=== PATIENT | female | born 1990 | race Caucasian/White ===

== ENCOUNTER → 2020-08-03 13:59 | Outpatient (CLI) | payer OTHER, SELFPAY | PROVIDERS: Referring Provider Advanced Practice Midwife; Visit Provider Advanced Practice Midwife | DX: Z34.90 Encounter for supervision of normal pregnancy, unspecified, unspecified trimester (principal); Z3A.00 Weeks of gestation of pregnancy not specified; Z84.81 Family history of carrier of genetic disease | CPT/HCPCS: 36415 ==

== ENCOUNTER 2020-12-27 15:27 | Inpatient (IN) | payer OTHER, SELFPAY ==
[2020-12-27] VITALS (39 sets, daily range): BP systolic 99–168; BP diastolic 56–105; PULSE 54–112; TEMP 36.6–37.1; O2SAT 93–100; BMI 25.9
[2020-12-27 15:23] LABS: ROM Internal Control Test YES-OK TO RESULT pt. (Internal QC)
[2020-12-27 15:25] LABS: ROM Patient Test POSITIVE (Negative)
[2020-12-27] MEDS: Lactated Ringers 1,000 ML 999 ML IV (15:45)
[2020-12-27 15:57] LABS: Absolute Lymphocyte Count 1.74 X10^3/uL (0.83-4.51); Absolute Neutrophil Count 8.5 X10^3/uL (2.0-7.7); Basophil# 0.04 X10^3/uL; Basophil% 0.4 % (0-1); Eosinophil# 0.08 X10^3/uL; Eosinophils% 0.7 % (0-5); Hematocrit 35.2 % (37-47); Hemoglobin 12.2 g/dL (12.0-15.0); Lymphocyte # 1.74 X10^3/ul (0.83-4.51); Lymphocyte % 15.9 % (19-41); Mean Corp Hgb Conc 34.7 g/dL (32-36); Mean Corpuscular Hgb 30.7 pg (27.0-32.0); Mean Corpuscular Volume 88.7 fL (81-99); Mean Platelet Vol. 11.2 fl (6.2-12.0); Monocyte# 0.58 X10^3/uL; Monocyte% 5.3 % (0-10); NRBC Flagged by Analyzer 0 % (0-5); Neutrophil # 8.47 X10^3/uL (2.7-7.7); Neutrophil % 77.2 % (47-70); Platelet Count 260 K/mm3 (150-450); RBC Distribution Width SD 41.9 fl (35.1-43.9); Red Blood Count 3.97 M/mm3 (4.2-5.4)
[2020-12-27] MEDS: Lactated Ringers 500 ML 999 ML IV (16:00)
[2020-12-27] MEDS: Ondansetron 4 MG/2 ML Vial IV (16:17)
[2020-12-27] MEDS: fentaNYL-bupivacaine (epidural) 100 ML BAG EPIDURAL (16:25)
--- NOTE | 2020-12-27 16:38 | PCM.HP.OB ---
HPI - General General Date of Admission: 12/27/20 HPI Narrative VALE VARGAS, is a 30 F at 37w4d presents with SROM clear fluid at 1245 this afternoon. Shortly after SROM, contractions began and became more painful. complicated by labor at 34 weeks, betamethasone x2.. Anxiety and depression, COVID 19 during first trimester, history of genital HSV on suppression therapy. Maternal Data Information Final NIKKI: 01/13/21 Final NIKKI Source: US <20 weeks Gestational age: 37w4d PFSH PFSH Home Medications 12/27/20 [History Last Taken 12/27/20] famotidine [Pepcid] 12/27/20 [History Last Taken 12/26/20] sertraline [Zoloft] mg 12/27/20 [History Last Taken 12/27/20] Allergy/AdvReac Type Severity Reaction Status Date / Time tree nut Allergy Hives Verified 12/27/20 15:06 NST FHR Rate Baby A Baseline: 125 Variability:: Moderate Accelerations:: 15 x 15 Decelerations:: None FHR Category:: Category I Uterine Activity:: every 3 minutes, strong ROS Constitutional Constitutional: Reports systems reviewed and no addt'l complaints, except as documented; Denies headache(s) Eyes Eyes: Denies acute decrease in peripheral vision, blurry vision or change in vision ENT HEENT: Reports systems reviewed and no addt'l complaints, except as documented Cardiovascular Cardiovascular: Denies chest pain or dizziness Respiratory/Chest Respiratory/Chest: Denies cough, dyspnea, dyspnea on exertion, shortness of breath at rest or shortness of breath with exertion Gastrointestinal Gastrointestinal: Denies abdominal pain, diarrhea, nausea or vomiting Genitourinary Genitourinary: Denies abdominal discomfort or movement Musculoskeletal Musculoskeletal: Denies limited range of motion Integumentary Integumentary: Reports systems reviewed and no addt'l complaints, except as documented Neurologic Neurologic: Reports systems reviewed and no addt'l complaints, except as documented Psychiatric Psychiatric: Reports systems reviewed and no addt'l complaints, except as documented Endocrine Endocrinology: Reports systems reviewed and no addt'l complaints, except as documented Hematologic/Lymphatic Hematologic/Lymphatic: Reports systems reviewed and no addt'l complaints, except as documented Allergic/Immunologic Allergic/Immunologic: Reports systems reviewed and no addt'l complaints, except as documented Vital Signs Vital Signs Vital Signs: 12/27/20 15:01 12/27/20 15:02 12/27/20 16:18 Temperature 97.9 F Pulse Rate 55 L 76 Blood Pressure 142/88 H BP Systolic 142 BP Diastolic 88 Pulse Ox 93 12/27/20 16:19 12/27/20 16:22 12/27/20 16:25 Temperature Pulse Rate 70 80 62 Blood Pressure 168/105 H 135/74 H BP Systolic 168 135 BP Diastolic 105 74 Pulse Ox 100 12/27/20 16:27 12/27/20 16:29 12/27/20 16:32 Temperature Pulse Rate 69 71 75 Blood Pressure 128/73 H BP Systolic 128 BP Diastolic 73 Pulse Ox 98 100 12/27/20 16:34 12/27/20 16:37 Temperature Pulse Rate 77 74 Blood Pressure 127/68 H BP Systolic 127 BP Diastolic 68 Pulse Ox 95 Weight Weight: 151 lb 6.4 oz Body Mass Index (BMI) 25.9 Physical Exam Const alert and oriented x3 General Appearance: cooperative Orientation / Consciousness: awake, oriented to person, oriented to place and oriented to time Exam Limitations: no limitations HEENT normocephalic Head and Scalp: normal to inspection, normocephalic and atraumatic Face and Sinus: normal facial exam Eyes General Eye: normal appearance of both eyes Neck full ROM Chest Chest: symmetrical chest wall rise Resp normal respiratory effort and normal air movement Auscultation: clear to auscultation bilaterally Cardio regular rate, regular rhythm, S1 normal heart sound, S2 normal heart sound, no murmurs, no rub, no gallops and no clicks GI normal to inspection, nondistended, normoactive bowel sounds and non-tender appearance of the vagina normal Bladder / Kidney Exam: no CVA tenderness Manual OB Exam: estimated gestational size appropriate, presentation cephalic, dilated 5, effaced 90 and station 0 Back/Spine normal ROM Extremity normal to inspection and full ROM Skin no rashes or lesions noted Neuro oriented x3, CN's II-XII intact bilaterally and moves all extremities Sensorium / Orientation: awake, alert and oriented to person Motor Exam: clonus absent Deep Tendon Reflexes: Rt Patellar (L4): 2+ and Lt Patellar (L4): 2+ Labs Labs Labs: Blood Type Pending Antibody Screen Pending Hct 35.2 % (37-47) L Hgb 12.2 g/dL (12.0-15.0) Miscellaneous Test GBS negative 1hr GCT normal RPR negative Rubella Immune HBsAG negative HepC negative HIV negative [id number] negative O positive GC/CT negative Urine tox screen negative Assessment & Plan (1) SROM (spontaneous rupture of membranes): (2) Active labor at term: (3) labor without delivery, third trimester: (4) Anxiety: (5) Depression affecting : (6) Genital HSV: PLAN: 1) Admit to labor and delivery 2) ROM plus negative, SROM 3) Routine labs, IV 4) Epidural for pain management 5) GBS negative 6) COVID screen, awaiting results 7) HSV prophylaxis during , no active lesions 8) [facility] physician, notified of patient status 9) Declines LARC
--- NOTE | 2020-12-27 20:14 | PLAC_PTH ---
PATIENT: VALE VARGAS LOC: WP U#:[id number] AGE/SX: 30/F ROOM: WP004 RE12/27/[address]: Dr. Ibrahima Castro MD : 1990 BED: 1 DIS: 12/29/2020 SPEC #: [id number] RECD: 12/27/20 22:01 STATUS: ELIOT REKristal #: [id number] GRIFFIN: 12/27/20 20:[address]: Ibrahima Castro DEPT: SURGICAL PATHOLOGY RECD BY: Lubna Sow ENTERED: 12/28/20 10:32 SP TYPE: PLACENTA OTHR DR: Marlee Almanza CNM No Primary Care Phys Tissues: Placenta, NOS Procedures: Surgery Specimen Level V HEADER OPERATION: Vaginal delivery PRE-OP DIAGNOSIS: Rupture of membranes TISSUE SUBMITTED: Placenta MICROSCOPIC DIAGNOSIS Hsu placenta (398 gm): Umbilical cord ? trivascular with no evidence of inflammation. Placental membranes ? no pathologic change. Placental disc ? mild [employer]ce change. AM:angélica 12/30/2020 MICROSCOPIC DESCRIPTION Slides are reviewed. GROSS DESCRIPTION SPECIMEN: PLACENTA / CLINICAL INFORMATION: A. Weight: 3.09 kg B. Gestational Age: 37 weeks C. Sex: Female PLACENTAL WEIGHT (POST FIXATION): 398 gm PLACENTAL DIMENSIONS: 16 x 15 x 2.8 cm PLACENTAL SHAPE: Usual ovoid PLACENTAL WEIGHT FOR GESTATIONAL AGE: Within 10-99th percentile MEMBRANES - Present A. Insertion: Marginal B. Site of rupture from edge: 9 cm from edge of placental disc C. Color of membrane: [place]ame-waters D. Abnormalities: None UMBILICAL CORD - Present A. Color: [place]ame-waters B. Insertion: Paracentral C. Length: 29 cm D. Diameter: 1 to 1.5 cm E. Number of vessels: Three F. Abnormalities: None PLACENTAL DISC - Present A. Color of surface: [place]ame-waters B. surface abnormalities: None C. Maternal cotyledons: Intact with minimal tears D. Attached retro placental clot: No clot E. Cut surface: Dark red and spongy F. Lesions: None G. Separate clot: Absent SECTIONS SUBMITTED: 1. Membrane roll 2. Cord, maternal end 3. Cord, end 4. Placental disc, and maternal surfaces 5. Placental disc, and maternal surfaces 6. Placental disc, and maternal surfaces SJ:angélica 12/29/20 TC:5 CPT: 54230
[2020-12-27] MEDS: Oxytocin 30 units/NS 500 ml 30 UNITS/500 ML IV.SOLN 334 UNITS IV (20:15)
--- NOTE | 2020-12-27 20:38 | EX.PCM.OBRPT ---
Assessment & Plan (1) COVID-19 affecting in first trimester: (2) Vaginal delivery: (3) Periurethral laceration, delivered, current hospitalization: Maternal Data Information Final NIKKI: 01/13/21 Final NIKKI Source: US <20 weeks Gestational age: 37w4d Vaginal Delivery Maternal Presentation Maternal Presentation: Active Labor and Spontaneous Rupture of Membranes Operative Information Date of Procedure: 12/27/20 Pre-Operative Diagnosis: SROM, Active labor Post-Operative Diagnosis: Type of Anesthesia: Epidural Estimated Blood Loss: 300 ml Time of Delivery: 20:14 Findings Description of Procedure: Progressed to complete with strong urge to push. Epidural effective for pain management. of viable female infant over periurethral laceration. APGARS 8,9. Infant head delivered SOPHIA, with CAN x1, delivered through and body immediately forthcoming. Infant placed on maternal abdomen, mouth and nares suctioned for secretions, strong cry. Pitocin started for active 3rd stage management. Placenta delivered with expression via mikaela,intact, 3vessel cord. Perineum inspected and revealed periurethral laceration and repaired with epidural and 3.0 vicryl with Rapide. Fundus firm, hemostasis achieved, EBL 300ml. Vaginal sweep completed and sponge and instrument count correct. Placenta send to pathology. Mom and baby stable, family bonding well, planning to breastfeed. notified of delivery. Presentation: Vertex and SOPHIA Amniotic Membrane Rupture Type: Spontaneous Amniotic Fluid Description: Clear Placental Delivery Description: Spontaneous Placenta Disposition: Sent to Pathology Cord Vessel Description: 3 Vessels Cord Entanglement: Around neck x 1, loose Nuchal Cord Compression: Without compression A Gender: Female (1 minute): 8 (5 minute): 9 Delayed Cord Clamping: Yes Post Vaginal Delivery Medications Given After Delivery: IV Pitocin Episiotomy Description: None Laceration: Periurethral Extnsion/lac and 1st degree Complication Complications: None
[2020-12-27 22:07] LABS: Pathology Specimen OB SEE PATHOLOGY REPORT
[2020-12-27] MEDS: 0.9% Saline Lock 10 ML Syringe IV (22:56)
[2020-12-28 00:50] VITALS: BP 107/65; PULSE 74; RESP 16; TEMP 36.1
--- NOTE | 2020-12-28 03:38 | NURSING ---
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
[2020-12-28 05:10] VITALS: BP 117/50; PULSE 64; RESP 16; TEMP 36.6
[2020-12-28] MEDS: Ibuprofen 600 MG Tablet PO ×3 (05:21→20:26)
[2020-12-28] MEDS: Sertraline 100 MG Tablet PO (11:25)
[2020-12-28] MEDS: Prenatal Vits Tablet 1 TABLET PO (11:25)
[2020-12-28 11:34] VITALS: BP 96/48; PULSE 73; RESP 16; TEMP 36.6; O2SAT 98
--- NOTE | 2020-12-28 12:27 | PCM.PN.BLA ---
Progress Note pain well controlled, average lochia. Physical Exam Const alert and no apparent distress Narrative: Fundus firm, below umbilicus. Assessment & Plan Assessment/Plan (1) Vaginal delivery: PLAN: PPD #1 routine care likely d/c tomorrow , doing well, might change to bottle feeding
[2020-12-28 12:30] VITALS: BP 110/67; PULSE 61; RESP 16; TEMP 36.3; O2SAT 100
--- NOTE | 2020-12-28 14:15 | CASEMGMT ---
Social Work Assessment Labor and Delivery Unit Patient Address: [address] [place] [address] [address] [place] [address]. Phone number: [phone] Date of Referral: 12/28/2020 Time of Referral: 0003 Referred By: Marlee Almanza, certified nurse marketing planning manager Date of Intervention: 12/28/2020 Time of Intervention: 1415 Reason for Referral: Maternal history of anxiety and depression, taking Zoloft. History obtained from: Medical records and mother of baby (MOB) Marzena Pickering; father of baby (FOB) Gavin Covington present for part of conversation. Household composition: MOB lives alone, and plans to take to her home. FOB resides in his own residence. Patient's parent/guardian status: MOB is a 30-year-old single female. In the FOB a 23-year-old single male. occurred shortly after getting together, with the MOB and FOB together for a period of time and then breaking up. MOB reports that they are working on things and sorting out where the relationship is. MOB indicated that FOB is younger. MOB also reports that she had just gotten out of a long-term relationship when she became involved with the FOB and then became . MOB denies any domestic violence concerns with the FOB. [place] is the first child for both parents. [place] is to be named Laquita Covington, born 12/27/2020. Medical History: MITCH is 1, para 0-1 after delivering Laquita. care started at 7 weeks gestation. MOB diagnosed with Covid also in the first trimester. MOB has a history of HSV. Infant delivered weighing 6 pounds 13 ounces. Apgars 8 and 9 at 1 and 5 minutes of life respectively. Educational Status: MITCH is college educated with 16 years of education. 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 Works on the stepdown unit. Does receive partial pay through [employer] [facility] during maternity leave. The FOB works on the pipeline. Supplies: MOB reports to have needed infant supplies including a safe sleep space and car seat. MOB is breast-feeding and has a breast pump. Childcare/Caregiver(s): MOB is the primary caregiver. And will have help from family as needed. Transportation: Reports transportation is adequate. Programs/Agencies Involved: MOB reports to have a counselor through [facility] counseling in [facility]. Denies any other agency involvement. No legal issues. No children services history. Behavioral Health Issues: Mental Health History: MOB has history of anxiety and OCD. Diagnosed at the age of 27. MOB has tried Lexapro and BuSpar in the past, but most recently has been taking Zoloft in the third trimester of . Reports to be on 100 mg at this time, and that the medication is helping. Plans to stay on this medication in the timeframe. Denies any history of suicidal ideation, attempts, or intent. No thoughts of harm to others. Substance Use History: MOB denies any substance use issues. Family History: MOB mother with history of alcohol use issues as per the medical record. Drug Screens: Maternal drug screen negative on 06/01/2020. Family/Social Stressors: MOB just got out of a long-term relationship when she became involved with the FOB and then became . MOB reports that although was unplanned, was accepted. Reports to be happy about her baby. Record indicates that the MOB and FOB had several break ups during the . MOB indicates they are trying to figure things out. MOB did have Covid at the beginning of this . Support Systems: MOB denies her mother, father, grandparents, and a sister as strong supports. Will have help at home going as needed from family. Depression/Shaken Baby/Safe Sleeping reviewed shaken baby prevention, safe sleeping, and anxiety and depression. ASSESSMENT: Met with the MOB and FOB together, with the FOB just getting ready to take a shower. FOB was showering for the duration of social work visit. During short time the FOB was in the room, the FOB resented as pleasant. MOB okay talking with assessment questions while the FOB was showering. Did write out domestic violence questions and due to the FOB being in the next room. MOB held good eye contact, mood appropriate, and affect congruent. MOB reports to have needed supplies to care for the baby as well as adequate support if needed at home. MOB reports intention to stay on antidepressant medication, and expresses understanding of being at higher risk for mood or anxiety disorder. [place] depression screen was low score of 5. Provided MOB with a mood and anxiety disorder packet which does include resources. MOB is thinking about looking into [facility] due to reduced income while on maternity maternity leave. MOB receptive with social work job titles checking back in on 12/29/2020 for a [facility] resource list that MOB can refer to. No voiced concerns from nursing staff regarding parent-child interactions or bonding. Observed MOB to handle the baby, and MOB was appropriate. MOB reports that her sister will be coming to provide some additional support while the FOB goes home this evening. PLAN: MOB and will discharge home, accompanied by the FOB who has been here for support. Social work will follow back up with MOB on 12/29/2020. No other services requested or indicated. -FIONA Heck, JOSH *Information documented in this assessment generated with [employer]*
[2020-12-28 16:00] VITALS: BP 120/88; PULSE 78; RESP 18; TEMP 36.6; O2SAT 98
[2020-12-28 20:30] VITALS: BP 104/66; PULSE 65; RESP 16; TEMP 36.3; O2SAT 97
[2020-12-29 01:35] VITALS: BP 106/59; PULSE 73; RESP 16; TEMP 36.8; O2SAT 95
[2020-12-29] MEDS: Ibuprofen 600 MG Tablet PO ×2 (02:43→08:53)
--- NOTE | 2020-12-29 08:16 | PCM.PN.OB ---
Subjective Subjective patient seen at bedside, doing well. Patient reports good pain control. lochia mild. breast feeding Objective Data Objective Data Vital Signs: Vital Signs Temp Pulse Resp BP Pulse Ox 98.2 F 73 16 106/59 L 95 12/29/20 01:35 12/29/20 01:35 12/29/20 01:35 12/29/20 01:35 12/29/20 01:35 Oxygen Delivery Method Room Air Weight: 68.674 kg Body Mass Index (BMI) 25.9 Intake & Output: Intake and Output for Last 24 Hours 12/27/20 12/28/20 12/29/20 23:59 23:59 23:59 Intake Total 2993.08 / 2993.08 420 / 420 Output Total 900 / 900 1800 / 1800 Balance 2093.08 / 2093.08 -1380 / -1380 Lab / Micro Data Result Diagrams: 12/27/20 15:45 Micro: Microbiology 12/27/20 17:20 Mucosa - Nose SARS-CoV-2 Antigen (Rapid) - Final Physical Exam Const alert and oriented x3 General Appearance: cooperative HEENT normocephalic Neck General: normal visual inspection GI soft to palpation and non-distended GI Narrative: Fundus firm Extremity normal to inspection and no calf tenderness Skin no rashes or lesions noted Neuro oriented x3 and CN's II-XII intact bilaterally Psych mental status grossly normal Assessment & Plan (1) Vaginal delivery: (2) Periurethral laceration, delivered, current hospitalization: PLAN: PPD# 2 , Doing well Routine care pain mgmt ambulation dc home
--- NOTE | 2020-12-29 08:17 | DCINST_ITS ---
Discharge Instructions Diet Discharge Diet: No restrictions Activity May resume sexual activity in: 6-8 weeks Dressing / Incision Call your doctor if you observe: Fever of 101 or Higher, Inability to urinate, Using more than 1 pad per hour and Uncontrolled pain Follow Up Care Please Follow Up With: Miriam Ramsey MD When: 1-2 weeks post and again at 6 weeks post . [phone] Test Results: Test results from this visit will be discussed in further detail at your follow-up appointment, if applicable. Discharge Plan Admission Admit Date/Time: 12/27/20 15:27 Attending Provider: Ibrahima Castro Primary Care Provider: Care Physician,No Primary Instructions Forms: [place] Hearing Screen, Information Discharge Orders/Prescriptions Prescriptions: Continued famotidine [Pepcid] 40 mg Tablet RF: 0 sertraline [Zoloft] 100 mg Tablet RF: 0 RF: 0 Referrals / Follow Up: Care Physician,No Primary [Primary Care Provider] -
[2020-12-29] MEDS: Sertraline 100 MG Tablet PO (08:53)
[2020-12-29 09:09] VITALS: BP 129/66; PULSE 89; RESP 16; TEMP 36.4
--- NOTE | 2020-12-29 11:45 | CASEMGMT ---
Social Work Labor and Delivery Unit No voiced concerns by nursing staff regarding parent child interactions or bonding overnight. Family is slated for discharge today. Met with the MOB, FOB, and baby in room. MOB reports to be looking forward to going home. Provided the MOB resource list for her home [facility]. MOB denies any other issues or concerns with home-going. Stressed appreciation for information. Plan: Begin will discharge home today with community resource information provided. Reviewed on antidepressant medication patient with. -LALI Heck, LPN INSTRUCTOR *Information in this note generated via the [employer] system.*
== END 2020-12-29 13:20 | disposition home or self-care (01) | DRG 807 ==
LOC: WPOUT 15:28 → WP 15:28
PROVIDERS: Admitting Provider Advanced Practice Midwife; Visit Provider Obstetrics & Gynecology
DX: O98.32 Other infections with a predominantly sexual mode of transmission complicating childbirth (principal); A60.00 Herpesviral infection of urogenital system, unspecified; O71.82 Other specified trauma to perineum and vulva; O69.81X0 Labor and delivery complicated by cord around neck, without compression, not applicable or unspecified; Z20.822 Contact with and (suspected) exposure to COVID-19; O99.344 Other mental disorders complicating childbirth; F32.9 Major depressive disorder, single episode, unspecified; F41.9 Anxiety disorder, unspecified; Z79.899 Other long term (current) drug therapy; Z86.16 Personal history of COVID-19; Z3A.37 37 weeks gestation of pregnancy; Z37.0 Single live birth
CPT/HCPCS: 59050; 84112; 85025; 86850; 86900; 86901; 87426; 88307; 99218; J7120; A4216; G0378; J2405

== ENCOUNTER 2021-10-06 16:43 | Outpatient (CLI) | payer OTHER, SELFPAY ==
[2021-10-06 17:51] LABS: Fetal Fibronectin Negative
== END 2021-10-06 23:59 | disposition home or self-care (01) ==
LOC: LABSPEC 16:43 → WPOUT 16:57 → LABSPEC 17:18
PROVIDERS: Visit Provider Obstetrics & Gynecology
DX: O47.00 False labor before 37 completed weeks of gestation, unspecified trimester (principal)
CPT/HCPCS: 82731

== ENCOUNTER 2021-10-06 16:50 | Outpatient (CLI) | payer OTHER, SELFPAY ==
[2021-10-06 17:10] VITALS: BP 100/54; PULSE 75
[2021-10-06 17:11] VITALS: BP 100/54; PULSE 73; PULSE 75; TEMP 37.4; O2SAT 99
[2021-10-06 17:28] VITALS: BMI 25.0
[2021-10-06] MEDS: Lactated Ringers 1,000 ML 999 ML IV (17:54)
[2021-10-06 17:58] LABS: Hematocrit 30.4 % (37-47); Hemoglobin 10.4 g/dL (12.0-15.0); Mean Corp Hgb Conc 34.2 g/dL (32-36); Mean Corpuscular Volume 90.7 fL (81-99); Mean Platelet Vol. 10.3 fl (6.2-12.0); Platelet Count 279 K/mm3 (150-450); RBC Distribution Width CV 13.2 % (11.6-14.6); RBC Distribution Width SD 43.7 fl (35.1-43.9); Red Blood Count 3.35 M/mm3 (4.2-5.4); White Blood Count 8.8 K/mm3 (4.4-11.0)
[2021-10-06 18:21] LABS: Partial Thromboplast Time 33.3 Seconds (24.1-36.2)
[2021-10-06 18:27] LABS: Fibrinogen 399 mg/dl (203-444)
--- NOTE | 2021-10-06 18:39 | OB.TRI.NOTE ---
HPI - General HPI Narrative VALE VARGAS, is a 31 F at 31w1d who presents from the office with ctx's. Ctx's have improved since IVF hydration. No vb, lof. Maternal Data Information NIKKI Calculator Estimated Delivery Date Method Current WG Current Estimate 12/07/21 Ultrasound #1 31w 1d Other Estimates 11/25/21 LMP (Uncertain) 32w 6d PFSH PFS Medical History (Updated 10/06/21 @ 18:[address] Erendira Hayes, DO) Genital herpes affecting Home Medications 1 tab PO/SL DAILY 12/27/20 [History Last Taken 10/05/21 10:00] famotidine [Pepcid] 40 mg PO DAILY 12/27/20 [History Last Taken 10/06/21 09:00] sertraline [Zoloft] 100 mg PO DAILY 12/27/20 [History Last Taken 10/05/21 10:00] Allergy/AdvReac Type Severity Reaction Status Date / Time tree nut Allergy Hives Verified 12/27/20 15:06 Family History Sister Family history of defect Social History (Updated 12/27/20 @ 17:58 by Yulia Benavidez) adopted: Yes Smoking Status: Never smoker History Elective abortions Hx Para 0 Spontaneous abortions Hx # Term Pregnancies Ectopic pregnancies Hx # Pregnancies Multiple births # of living children Physical Exam Const alert and no apparent distress General Appearance: comfortable GI soft to palpation NST FHR Rate Baby A Baseline: 135 Variability:: Moderate Accelerations:: 15 x 15 Decelerations:: None NST Reactive:: Yes FHR Category:: Category I Uterine Activity:: irregular ctx's on toco - has had 3 contractions Assessment & Plan (1) 31 weeks gestation of : PLAN: Monitored on labor and delivery. Cvx c/t/h after 2 hours of monitoring. Irregular ctx's on toco. IVF hydration. Ctx's have improved with fluids per pt. She had a temp of 99 and some diarrhea this morning, so possibly developing URI or gastroenteritis? Offered observation overnight since she lives 1 hour away. The patient states she does feel some improvement, and feels comfortable going home. She is close to [facility] if symptoms worsen. Discussed BMZ with pt and will give 1st dose now. She will return to L&D tomorrow for 2nd dose of BMZ. (2) contractions:
[2021-10-06 18:54] LABS: Bacteria 0 SEEN /hpf (None Seen); Mucous, Urine 0 SEEN /hpf (<or=2+)
[2021-10-06 18:58] LABS: Color, Urine Yellow (Yellow); Glucose, Dipstick Normal (Normal); Ketone-Dipstick Negative (Negative); Leukocyte Esterase-Dipstick 100 /ul (Negative); Nitrite-Dipstick Negative (Negative); Occult Blood-Urine Negative /ul (Negative); Protein-Dipstick 15 mg/dl (Negative); Urine Bilirubin Dipstick Negative (Negative); Urine Clarity Clear (Clear); Urine Urobilinogen Normal (Normal)
[2021-10-06 19:05] LABS: Red Blood Cells-Urine 0-5 SEEN /hpf (0-5); Squamous Epithelial Cells - UA 5-10 SEEN /hpf (5-10); White Blood Cells 0-5 SEEN /hpf (0-5)
[2021-10-06] MEDS: Betamethasone/Betamethasone 30 MG/5 ML Vial 12 MG IM (19:31)
--- NOTE | 2021-10-06 20:00 | NURSING ---
RN received bedside report from Talya Garcia RN at 1924. Pt requesting to be discharged to home at this time. This RN gave pt celestone as ordered at 1930 with pt verbalizing understanding that she must return to unit in 24 hours for repeat medication administration. RN also collected GBS at 1937 per physician order. RN called Dr. Hayes and updated her on pt request to go home at this time and pt feeling comfortable going home at this time. RN also updated provider on completed orders and UA results. RN received order to discharge pt to home at this time with pt to return for second celestone medication administration in 24hours. Dr. Hayes instructed this RN to encourage pt to call provider prior to returning to unit if feeling like delivery is impending. IV removed and discharge instructions reviewed with pt per Dr. Hayes by this RN at 1999. Pt verbalized understanding and ambulated off unit at this time.
[2021-10-07 00:07] LABS: Group B Strep DNA By PCR Negative (Negative); Internal Control PASS; Probe Check PASS; Specimen Processing Control PASS
== END 2021-10-06 23:59 | disposition home or self-care (01) ==
LOC: WPOUT 17:00 → WP 17:01
PROVIDERS: Visit Provider Obstetrics & Gynecology
DX: O99.613 Diseases of the digestive system complicating pregnancy, third trimester (principal); R19.7 Diarrhea, unspecified; O98.313 Other infections with a predominantly sexual mode of transmission complicating pregnancy, third trimester; A60.00 Herpesviral infection of urogenital system, unspecified; Z3A.31 31 weeks gestation of pregnancy
CPT/HCPCS: 96360; 36415; 59025; 59050; 81001; 85027; 85384; 85610; 85730; 86850; 86900; 86901; 87081; 87086; 87088; 87653; 96372; 99218; J7120; G0378; J0702

== ENCOUNTER 2021-10-07 16:50 | Outpatient (CLI) | payer OTHER, SELFPAY ==
[2021-10-07 17:04] VITALS: BP 111/65; PULSE 82
[2021-10-07 17:05] VITALS: PULSE 85; O2SAT 98
[2021-10-07 17:17] VITALS: BMI 25.2
[2021-10-07] MEDS: Betamethasone/Betamethasone 30 MG/5 ML Vial 12 MG IM (17:44)
--- NOTE | 2021-10-08 21:24 | OB.TRI.NOTE ---
HPI - General HPI Narrative VALE VARGAS, is a 31 F who presents for 2nd dose of BMZ. She presents to L&D early due to DFM today. Still having ctx's. No vb, lof. Maternal Data Information NIKKI Calculator Estimated Delivery Date Method Current WG Current Estimate 12/07/21 Ultrasound #1 31w 3d Other Estimates 11/25/21 LMP (Uncertain) 33w 1d PFSH PFSH Medical History (Updated 10/08/21 @ 21:[address] Erendira Hayes, DO) Genital herpes affecting Home Medications 1 tab PO/SL DAILY 12/27/20 [History Last Taken 10/07/21 07:00] famotidine [Pepcid] 40 mg PO DAILY 12/27/20 [History Last Taken 10/07/21 07:00] sertraline [Zoloft] 100 mg PO DAILY 12/27/20 [History Last Taken 10/07/21 07:00] Allergy/AdvReac Type Severity Reaction Status Date / Time tree nut Allergy Hives Verified 12/27/20 15:06 Family History Sister Family history of defect Social History (Updated 12/27/20 @ 17:58 by Yulia Benavidez) adopted: Yes Smoking Status: Never smoker History Elective abortions Hx Para 0 Spontaneous abortions Hx # Term Pregnancies Ectopic pregnancies Hx # Pregnancies Multiple births # of living children NST FHR Rate Baby A Baseline: 130 Variability:: Moderate Accelerations:: 15 x 15 Decelerations:: None NST Reactive:: Yes FHR Category:: Category I Uterine Activity:: Irregular ctx's Assessment & Plan (1) 31 weeks gestation of : PLAN: NST reactive 2nd dose of BMZ given Irregular ctx's on toco and pt comfortable appearing per nursing staff Follow up in office GBS was sent yesterday (2) contractions: (3) Decreased movement:
== END 2021-10-07 23:59 | disposition home or self-care (01) ==
LOC: WPOUT 16:59 → WP 16:59
PROVIDERS: Visit Provider Obstetrics & Gynecology
DX: O36.8130 Decreased fetal movements, third trimester, not applicable or unspecified (principal); O98.313 Other infections with a predominantly sexual mode of transmission complicating pregnancy, third trimester; A60.00 Herpesviral infection of urogenital system, unspecified; Z3A.31 31 weeks gestation of pregnancy
CPT/HCPCS: 59025; 59050; 96372; 99218; G0378; J0702

== ENCOUNTER 2021-11-07 19:00 | Outpatient (CLI) | payer OTHER, SELFPAY ==
[2021-11-07 19:16] VITALS: BMI 25.5
[2021-11-07 19:27] VITALS: BP 112/65; PULSE 71; PULSE 77; O2SAT 99
[2021-11-07 20:18] LABS: ROM Internal Control Test YES-OK TO RESULT pt. (Internal QC); ROM Patient Test Negative (Negative)
[2021-11-07] MEDS: Lactated Ringers 500 ML 999 ML IV (22:00)
[2021-11-07 22:21] LABS: Mucous, Urine 0 SEEN /hpf (<or=2+)
[2021-11-07 22:23] LABS: Color, Urine Yellow (Yellow); Glucose, Dipstick Normal (Normal); Ketone-Dipstick Negative (Negative); Leukocyte Esterase-Dipstick 500 /ul (Negative); Nitrite-Dipstick Negative (Negative); Occult Blood-Urine 150 /ul (Negative); Protein-Dipstick Negative (Negative); Urine Bilirubin Dipstick Negative (Negative); Urine Clarity Sl. Cloudy (Clear); Urine Urobilinogen Normal (Normal); Urine pH 6.5 (5.0 - 8.0)
[2021-11-07 22:31] LABS: White Blood Cells 5-10 SEEN /hpf (0-5)
[2021-11-07] MEDS: Lactated Ringers 1,000 ML 150 ML IV (22:31)
[2021-11-07 22:32] LABS: Bacteria 1+ /hpf (None Seen); Red Blood Cells-Urine 0-5 SEEN /hpf (0-5); Squamous Epithelial Cells - UA 5-10 SEEN /hpf (5-10)
[2021-11-07 23:33] VITALS: BP 113/67; PULSE 57; TEMP 36.7; O2SAT 98
--- NOTE | 2021-11-08 07:44 | OB.TRI.NOTE ---
HPI - General HPI Narrative VALE VARGAS, is a 31 F @ 35+ weeks who presents with contractions, scant bloody discharge and ? ROM. Maternal Data Information NIKKI Calculator Estimated Delivery Date Method Current WG Current Estimate 12/07/21 Ultrasound #1 35w 6d Other Estimates 11/25/21 LMP (Uncertain) 37w 4d PFSH PFSH Medical History (Updated 11/08/21 @ 07:[address] Mirima Ramsey MD) Genital herpes affecting Home Medications 1 tab PO/SL DAILY 12/27/20 [History Last Taken 10/07/21 07:00] famotidine [Pepcid] 40 mg PO DAILY 12/27/20 [History Last Taken 10/07/21 07:00] sertraline [Zoloft] 100 mg PO DAILY 12/27/20 [History Last Taken 10/07/21 07:00] acyclovir 400 mg PO TID 11/07/21 [History Last Taken 11/07/21] aspirin 81 mg PO DAILY 11/07/21 [History Last Taken 11/06/21] ondansetron HCl [Zofran] 4 mg PO Q8H PRN 11/07/21 [History Last Taken 11/07/21] Allergy/AdvReac Type Severity Reaction Status Date / Time tree nut Allergy Hives Verified 11/07/21 19:17 Family History Sister Family history of defect Social History (Updated 12/27/20 @ 17:58 by Yulia Benavidez) adopted: Yes Smoking Status: Never smoker History Elective abortions Hx Para 0 Spontaneous abortions Hx # Term Pregnancies Ectopic pregnancies Hx # Pregnancies Multiple births # of living children NST FHR Rate Baby A Baseline: 125 Variability:: Moderate Accelerations:: 15 x 15 Decelerations:: None NST Reactive:: Yes FHR Category:: Category I Uterine Activity:: irregular Assessment & Plan (1) False labor before 37 completed weeks of gestation: QUALIFIERS: Trimester: third trimester Qualified Code(s): O47.03 - False labor before 37 completed weeks of gestation, third trimester PLAN: @ 35+ weeks, contractions 1) ROM plus was negative for Ruptured membranes 2) status reassuring 3) previously received celestone for PTL 4) prolonged observation with no cervical change. 5) DC home
--- NOTE | 2021-11-09 09:25 | OB.TRI.NOTE ---
HPI - General HPI Narrative VALE VARGAS, is a 31 F who presents on 11/07/2021 with complaint of contractions. She denied any vaginal bleeding or leaking of fluid. Maternal Data Information NIKKI Calculator Estimated Delivery Date Method Current WG Current Estimate 12/07/21 Ultrasound #1 36w 0d Other Estimates 11/25/21 LMP (Uncertain) 37w 5d Gestational age: 35 5/7 PFSH PFSH Medical History (Updated 11/09/21 @ 09:[address] Jeana Cueva MD) Genital herpes affecting Home Medications 1 tab PO/SL DAILY 12/27/20 [History Last Taken 10/07/21 07:00] famotidine [Pepcid] 40 mg PO DAILY 12/27/20 [History Last Taken 10/07/21 07:00] sertraline [Zoloft] 100 mg PO DAILY 12/27/20 [History Last Taken 10/07/21 07:00] acyclovir 400 mg PO TID 11/07/21 [History Last Taken 11/07/21] aspirin 81 mg PO DAILY 11/07/21 [History Last Taken 11/06/21] ondansetron HCl [Zofran] 4 mg PO Q8H PRN 11/07/21 [History Last Taken 11/07/21] Allergy/AdvReac Type Severity Reaction Status Date / Time tree nut Allergy Hives Verified 11/07/21 19:17 Family History Sister Family history of defect Social History (Updated 12/27/20 @ 17:58 by Yulia Benavidez) adopted: Yes Smoking Status: Never smoker History Elective abortions Hx Para 0 Spontaneous abortions Hx # Term Pregnancies Ectopic pregnancies Hx # Pregnancies Multiple births # of living children NST FHR Rate Baby A Baseline: 110 Variability:: Moderate Accelerations:: 15 x 15 Decelerations:: None NST Reactive:: Yes FHR Category:: Category I Uterine Activity:: ctxs q 3-5 min Assessment & Plan (1) False labor before 37 completed weeks of gestation: QUALIFIERS: Trimester: third trimester Qualified Code(s): O47.03 - False labor before 37 completed weeks of gestation, third trimester PLAN: Threatened labor. No evidence of active labor. Patient was observed for several hours. Discharged home to follow-up as scheduled or as needed. (2) 35 weeks gestation of :
== END 2021-11-08 01:57 | disposition home or self-care (01) ==
LOC: WPOUT 19:14 → WP 19:16
PROVIDERS: Visit Provider Obstetrics & Gynecology
DX: O47.03 False labor before 37 completed weeks of gestation, third trimester (principal); O98.313 Other infections with a predominantly sexual mode of transmission complicating pregnancy, third trimester; A60.00 Herpesviral infection of urogenital system, unspecified; Z3A.35 35 weeks gestation of pregnancy; Z79.82 Long term (current) use of aspirin
CPT/HCPCS: 96360; 96361; 59025; 59050; 81001; 84112; 87086; 87088; 99218; J7120; G0378

== ENCOUNTER 2021-11-16 22:04 | Inpatient (IN) | payer OTHER, SELFPAY ==
[2021-11-16] VITALS (22 sets, daily range): BP systolic 114–127; BP diastolic 58–76; PULSE 62–91; TEMP 36.6; O2SAT 93–100; BMI 25.4
[2021-11-16] MEDS: Lactated Ringers 1,000 ML 50 ML IV (22:05)
[2021-11-16] MEDS: Lactated Ringers 500 ML 999 ML IV (22:35)
[2021-11-16] MEDS: fentaNYL 100 MCG/2 ML Ampul IV (22:45)
[2021-11-16 22:50] LABS: Absolute Lymphocyte Count 2.29 X10^3/uL (0.83-4.51); Absolute Neutrophil Count 12.2 X10^3/uL (2.0-7.7); Basophil# 0.02 X10^3/uL; Basophil% 0.1 % (0-1); Eosinophil# 0.08 X10^3/uL; Eosinophils% 0.5 % (0-5); Hematocrit 33.1 % (37-47); Hemoglobin 11.3 g/dL (12.0-15.0); Lymphocyte # 2.29 X10^3/ul (0.83-4.51); Lymphocyte % 14.7 % (19-41); Mean Corp Hgb Conc 34.1 g/dL (32-36); Mean Corpuscular Hgb 30.5 pg (27.0-32.0); Mean Corpuscular Volume 89.2 fL (81-99); Mean Platelet Vol. 10.6 fl (6.2-12.0); Monocyte# 0.92 X10^3/uL; Monocyte% 5.9 % (0-10); NRBC Flagged by Analyzer 0 % (0-5); Neutrophil # 12.21 X10^3/uL (2.7-7.7); Neutrophil % 78.2 % (47-70); Platelet Count 273 K/mm3 (150-450); RBC Distribution Width CV 13.4 % (11.6-14.6); RBC Distribution Width SD 43.8 fl (35.1-43.9); Red Blood Count 3.71 M/mm3 (4.2-5.4); White Blood Count 15.6 K/mm3 (4.4-11.0)
[2021-11-16] MEDS: Oxytocin 30 units/NS 500 ml 30 UNITS/500 ML IV.SOLN 334 UNITS IV (23:00)
--- NOTE | 2021-11-16 23:14 | OP.PCM_ITS ---
Maternal Data Information NIKKI Calculator Estimated Delivery Date Method Current Current Estimate 12/07/21 Ultrasound #1 37w 0d Other Estimates 11/25/21 LMP (Uncertain) 38w 5d Vaginal Delivery Maternal Presentation Maternal Presentation: Active Labor Operative Information Date of Procedure: 11/16/21 Pre-Operative Diagnosis: Active labor at term Post-Operative Diagnosis: with second degree perineal laceration Surgery / Procedure Performed: Spontaneous Vaginal Delivery Type of Anesthesia: Local with 1% Lidocaine Estimated Blood Loss: 350 ml Time of Delivery: 22:25 Findings Description of Procedure: Arrived to labor and delivery 9cm dilation. AROM for clear fluid and complete dilation with strong urge to push. Unmedicated. of viable female infant over 2nd degree perineal laceration. APGARS 8,9. head delivered with body immediately forthcoming. Mouth and nares wiped for secretions and placed on maternal abdomen, Strong cry. Pitocin started for active 3rd stage management. Cord clamped and cut by FOB. Placenta delivered vis mikaela, intact, 3 vessel cord. Perineum inspected and revealed 2nd degree perineal laceration, repaired with 3.0 vicryl and 1% lidocaine. Patient not tolerating well and Fentanyl 25mg IV given. Vaginal sweep completed, EBL 350ml. Sponge and instrument count correct, completed by me. Mom and baby stable. P kirstie to breastfeed. Family bonding well. notified of delivery. Amniotic Membrane Rupture Type: Artificial Amniotic Fluid Description: Clear Placental Delivery Description: Expressed Placenta Disposition: [facility] Cord Vessel Description: 3 Vessels Cord Entanglement: None Infant A Gender: Female (1 minute): 8 (5 minute): 9 Delayed Cord Clamping: Yes Post Vaginal Delivery Medications Given After Delivery: IV Pitocin Episiotomy Description: None Laceration: Perineal Extension/lac and 2nd degree Complication Complications: None
--- NOTE | 2021-11-16 23:14 | PCM.HP.OB ---
HPI - General General Date of Admission: 11/16/21 HPI Narrative VALE VARGAS, is a 31 F who presents at 37w0d by 8w EGA ultrasound. Presented to labor and delivery with contractions that started to increase in frequency and intensity after visit and membrane sweeping. Feeling pressure like needing to push upon arrvial thriving in pain. Denies leakage of fluid or ROM. Maternal Data Information NIKKI Calculator Estimated Delivery Date Method Current WG Current Estimate 12/07/21 Ultrasound #1 37w 0d Other Estimates 11/25/21 LMP (Uncertain) 38w 5d PFSH PFSH Medical History (Updated 11/16/21 @ 23:26 by Marlee Almanza CNM) Genital herpes affecting Home Medications 1 tab PO/SL DAILY 12/27/20 [History Last Taken 10/07/21 07:00] famotidine [Pepcid] 40 mg PO DAILY 12/27/20 [History Last Taken 10/07/21 07:00] sertraline [Zoloft] 100 mg PO DAILY 12/27/20 [History Last Taken 10/07/21 07:00] acyclovir 400 mg PO TID 11/07/21 [History Last Taken 11/07/21] aspirin 81 mg PO DAILY 11/07/21 [History Last Taken 11/06/21] ondansetron HCl [Zofran] 4 mg PO Q8H PRN 11/07/21 [History Last Taken 11/07/21] Allergy/AdvReac Type Severity Reaction Status Date / Time tree nut Allergy Hives Verified 11/16/21 22:53 Family History Sister Family history of defect Social History (Updated 12/27/20 @ 17:58 by Yulia Benavidez) adopted: Yes Smoking Status: Never smoker History Elective abortions Hx Para 0 Spontaneous abortions Hx # Term Pregnancies Ectopic pregnancies Hx # Pregnancies Multiple births # of living children NST FHR Rate Baby A Baseline: 120 Vital Signs Vital Signs Vital Signs: 11/16/21 22:09 11/16/21 22:31 11/16/21 22:49 Pulse Rate 91 70 80 Blood Pressure 126/74 H 114/58 L 117/71 BP Systolic 126 114 117 BP Diastolic 74 58 71 Pulse Ox 11/16/21 22:51 11/16/21 22:56 11/16/21 23:01 Pulse Rate 78 84 78 Blood Pressure BP Systolic BP Diastolic Pulse Ox 99 100 100 11/16/21 23:03 11/16/21 23:06 11/16/21 23:11 Pulse Rate 81 84 80 Blood Pressure 127/73 H BP Systolic 127 BP Diastolic 73 Pulse Ox 96 100 Weight Weight: 148 lb Body Mass Index (BMI) 25.4 Physical Exam Narrative 9cm/90%/ 0 station. AROM for large amount of clear fluid Labs Labs Labs: Blood Type O POSITIVE Antibody Screen NEGATIVE Hct 33.1 % (37-47) L Hgb 11.3 g/dL (12.0-15.0) L Group B Strep DNA Negative (Negative) Miscellaneous Test GBS negative HIV negative RPR negative HepC negative HBsAG negative Rubella Immune Assessment & Plan (1) 37 weeks gestation of : (2) Active labor at term: (3) HSV-2 seropositive: (4) Anxiety: (5) Depression: (6) History of OCD (obsessive compulsive disorder): (7) History of pre-term labor: (8) Iron deficiency anemia: (9) Short interval between pregnancies affecting , antepartum: PLAN: 1) Admit to labor and delivery 2) IV saline lock 3) Routine labs 4) Unable to receive epidural due to rapid progression and anticipate delivery soon 5) GBS negative 6) notified of patient delivery.
[2021-11-17] VITALS (15 sets, daily range): BP systolic 101–124; BP diastolic 49–72; PULSE 63–96; RESP 16; TEMP 36.1–36.8; O2SAT 82–100
[2021-11-17] MEDS: Acetaminophen 500 MG Tablet PO (00:12)
[2021-11-17] MEDS: Ibuprofen 600 MG Tablet PO ×4 (01:04→22:16)
[2021-11-17] MEDS: Benzocaine/Lanolin/Aloe Vera 1 SPRAY EACH TOPICAL (01:04)
--- NOTE | 2021-11-17 05:55 | PN_ITS ---
Subjective Subjective patient seen at bedside, doing well. Patient reports good pain control. lochia mild. breast feeding. voiding w/o difficulty. Objective Data Objective Data Vital Signs: Vital Signs Temp Pulse Resp BP Pulse Ox 97.8 F 88 16 101/62 82 11/17/21 04:50 11/17/21 04:50 11/17/21 04:50 11/17/21 04:50 11/17/21 00:27 Oxygen Delivery Method Room Air Weight: 67.132 kg Body Mass Index (BMI) 25.4 Intake & Output: Intake and Output for Last 24 Hours 11/15/21 11/16/21 11/17/21 23:59 23:59 23:59 Intake Total 692 / 692 333 / 333 Output Total 900 / 900 Balance 692 / 692 -567 / -567 Lab / Micro Data Result Diagrams: 11/16/21 22:05 Labs: Laboratory Results - last 24 hr 11/16/21 22:05: WBC 15.6 H, RBC 3.71 L, Hgb 11.3 L, Hct 33.1 L, MCV 89.2, MCH 30.5, MCHC 34.1, RDW Std Deviation 43.8, RDW Coeff of Daniel 13.4, Plt Count 273, MPV 10.6, Immature Gran % (Auto) 0.600, Neut % (Auto) 78.2 H, Lymph % (Auto) 14.7 L, Barbour % (Auto) 5.9, Eos % (Auto) 0.5, Baso % (Auto) 0.1, Absolute Neuts (auto) 12.2 H, Absolute Lymphs (auto) 2.29, Nucleated RBC % 0 11/16/21 22:05: Blood Type O POSITIVE, Antibody Screen NEGATIVE Physical Exam Const alert and oriented x3 General Appearance: cooperative HEENT normocephalic Neck General: normal visual inspection GI soft to palpation and non-distended GI Narrative: Fundus firm Extremity normal to inspection and no calf tenderness Skin no rashes or lesions noted Neuro oriented x3 and CN's II-XII intact bilaterally Psych mental status grossly normal Assessment & Plan Assessment/Plan (1) Vaginal delivery: PLAN: PPD#1 , Doing well Routine care pain mgmt ambulation dc home at 24 hrs if infant cleared
--- NOTE | 2021-11-17 05:56 | PCM.DC ---
Discharge Instructions Diet Discharge Diet: No restrictions Activity May resume sexual activity in: 6-8 weeks Dressing / Incision Call your doctor if you observe: Fever of 101 or Higher, Inability to urinate, Using more than 1 pad per hour and Uncontrolled pain Follow Up Care Please Follow Up With: Miriam Ramsey MD When: 1-2 weeks post and again at 6 weeks post . [phone] Test Results: Test results from this visit will be discussed in further detail at your follow-up appointment, if applicable. Discharge Plan Admission Admit Date/Time: 11/16/21 22:04 Attending Provider: Marlee Almanza Primary Care Provider: Care Physician,No Primary Discharge Orders/Prescriptions Prescriptions: Continued sertraline [Zoloft] 100 mg Tablet 100 mg PO DAILY RF: 0 1 tab PO/SL DAILY RF: 0 acyclovir 400 mg Tablet 400 mg PO TID RF: 0 Discontinued famotidine [Pepcid] 40 mg Tablet 40 mg PO DAILY RF: 0 ondansetron HCl [Zofran] 4 mg Tablet 4 mg PO Q8H PRN (Reason: Nausea) RF: 0 aspirin 81 mg Capsule 81 mg PO DAILY RF: 0 Referrals / Follow Up: Care Physician,No Primary [Primary Care Provider] - Disposition Disposition (needs filled in before D/C Order can be placed): Home, Self Care
[2021-11-17] MEDS: Acetaminophen 500 MG Tablet 1000 MG PO ×3 (06:33→19:13)
[2021-11-17] MEDS: Sertraline 100 MG Tablet PO (10:16)
--- NOTE | 2021-11-17 11:30 | CM.ED ---
Social Work Assessment OB Post Unit Patient's address: [address] [place] [facility] Date of Intervention: 11/17/21 Time of Intervention: 11:00am Reason for Referral: Maternal History of anxiety and depression, taking Zoloft Information obtained from :Patient, FOB and records. Patient gave verbal consent to speak to her in the presence of the FOB , Ryan. Mom: Marzena Pinto PNC: Marlee Almanza, Certified Nurse Cotton Presser Control: Patient said that she has spoke to Marlee Almanza about control and she is either going to do pill or shot Baby: Britni : 11/16/2019 Apgars: 8/9 Weight: 6 12 ounces Exchange Engineer: Dr. Mitchell in [facility] Breast feeding. Patient reports that breast feeding is going well. MOB's other children: Laquita 12/29/20 Housing: Patient said that she, nb and Laquita will be staying with the FOB at his house in [place] in [facility] following discharge. Patient said that she and the children will then go to an apartment in [facility] and live their until her house is completed in [place] which is scheduled to be completed by the end of January. Transportation: Patient reports she has access to transportation and is able to drive. Supplies: Patient reports that she has access to all supplies including crib, bassinet, carseat, clothes and diapers. Supports: Patient reports that she has everyone for support. SW asked specifically who her support is and she said her sister and work friends. Education Level: Patient graduated high school. Patient attended [employer] and then [employer] and obtained a Bachelors Degree in Nursing. No learning delays or issues noted. 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 Plans to take 8 weeks off work. Patient has been at [employer] for 4-5 months and enjoys her job. Patient reports previously working at [employer] for 2 years. 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 Agency Involvement: Patient reports no JFS, WIC, HMG, or CSB issues. Patient said that her only legal involvement is child support for her oldest child, Laquita. Patient reports she is currently in counseling at [facility]. She reported that she has been seeing a counselor since she was with her first child. Patient said that she sees whichever counselor is available at [facility]. KIRTI: Ryan Time Together: 1 year Involved with the NB: SW noted that KIRTI was doing [employer] to [employer] with nb Employment: [employer]. He plans to take 2 weeks off work. Other children. KIRTI has a child, age 6, from a previous relationship. He said that he and the child's mother have standard visitation where he has his daughter from till Saturday. KIRTI said that he and his child's mother do not have an court ordered visit as they are civil. KIRTI's mental health/AOD and domestic violence: KIRTI denied Maternal Mental Health: Patient reports her diagnosis is anxiety. Patient said that she has been seeing a counselor since she was with her older daughter, Laquita. Patient said that she has increased anxiety during the . Patient said that she has gone to counseling on and off and is currently linked with [facility]. She said that she had an appointment this week with her counselor but due to the did not attend. Patient said that she plans to contact her counselor and schedule an appointment during the post period. Patient said that when her counselor, Rohini left she began to take Zoloft and she feels that it is helpful to her and that her anxiety has decreased. Patient reports that her daughter, Marys, father was not nice. Patient said that she plans to continue to take zoloft. Patient took Zoloft after her daughter's Laquita's . Patient said that she did not have post depression. Patient denied any SI/HI in past or currently. Patient also stated that she has had no psych hospitalizations. Previous assessment noted history of anxiety and OCD with a diagnosis at age 27. Per chart patient has tried Lexapro and buspar in the past. Depression/ Shaken Baby Syndrome and Safe Sleeping: Reviewed shaken baby, safe sleeping and post anxiety and depression. Patient denied alcohol or drug use during . Patient said that she drinks wine every now and then. Patient does not smoke tobacco. MOB was noted to have good eye contact, mood appropriate and affect congruent. Her intent is to stay on antidepressant medication. SW provided mother with post depression information and resources which included contact numbers and on line resources. SW spoke to nursing staff and her RN Teresa, No voiced concerns from staff regarding child and parent interaction and bonding. SW had noted that patient was holding the nb upon entering the room and when this investment underwriter started to speak to her she handed the nb to the fob and advised him to do skin to skin, which he did provide to the nb during the interview. Plan: Home at discharge. Marilyn JAIMES
[2021-11-17] MEDS: Prenatal Vits Tablet 1 TABLET PO (12:44)
[2021-11-18 02:30] VITALS: BP 92/43; PULSE 61; RESP 16; TEMP 36.8; O2SAT 97
[2021-11-18] MEDS: Acetaminophen 500 MG Tablet 1000 MG PO (03:15)
[2021-11-18 08:30] VITALS: BP 100/59; PULSE 62; RESP 18; TEMP 36.2
[2021-11-18] MEDS: Dibucaine 30 GM Tube 1 APPLIC TOPICAL (08:48)
[2021-11-18] MEDS: Ibuprofen 600 MG Tablet PO (08:48)
[2021-11-18] MEDS: Benzocaine/Lanolin/Aloe Vera 1 SPRAY EACH TOPICAL (08:48)
[2021-11-18] MEDS: Sertraline 100 MG Tablet PO (08:48)
--- NOTE | 2021-11-18 09:13 | PCM.PN.OB ---
Subjective Subjective Patient seen at bedside. Feeling good. Denies any pain. Ambulating and voiding without difficulty. . Lochia decreasing. Desires discharge home today. Objective Data Objective Data Vital Signs: Vital Signs Temp Pulse Resp BP Pulse Ox 97.2 F L 62 18 100/59 L 97 11/18/21 08:30 11/18/21 08:30 11/18/21 08:30 11/18/21 08:30 11/18/21 02:30 Oxygen Delivery Method Room Air Weight: 148 lb Body Mass Index (BMI) 25.4 Intake & Output: Intake and Output for Last 24 Hours 11/16/21 11/17/21 11/18/21 23:59 23:59 23:59 Intake Total 692 / 692 333 / 333 Output Total 900 / 900 Balance 692 / 692 -567 / -567 Lab / Micro Data Result Diagrams: 11/16/21 22:05 ROS Eyes Eyes: Denies blurry vision, change in vision or spots in vision ENT HEENT: Denies dizziness or headache(s) Cardiovascular Cardiovascular: Denies abdominal pain, chest pain or dyspnea Respiratory/Chest Respiratory/Chest: Denies cough, dyspnea, shortness of breath at rest or shortness of breath with exertion Gastrointestinal Gastrointestinal: Denies abdominal pain, diarrhea or vomiting Genitourinary Genitourinary: Denies change in urinary stream, difficulty urinating or dysuria Musculoskeletal Musculoskeletal: Reports none Integumentary Integumentary: Denies rash Neurologic Neurologic: Denies dizziness, headache(s), memory loss or weakness Physical Exam Const alert and no apparent distress General Appearance: cooperative and comfortable Exam Limitations: no limitations HEENT normocephalic Eyes General Eye: normal appearance of both eyes Neck full ROM General: normal visual inspection Chest Chest: symmetrical chest wall rise Resp normal respiratory effort and normal air movement Effort and Inspection: symmetric chest movement Auscultation: clear to auscultation bilaterally Cardio regular rate and regular rhythm GI normal to inspection, nondistended, normoactive bowel sounds Back/Spine normal ROM Extremity full ROM and no calf tenderness General Extremity: normal exam except as noted Skin no rashes or lesions noted Neuro CN's II-XII intact bilaterally Psych mental status grossly normal Assessment & Plan (1) Vaginal delivery: (2) Periurethral laceration, delivered, current hospitalization: PLAN: Routine care support D/C home with follow up in office
== END 2021-11-18 09:55 | disposition home or self-care (01) | DRG 807 ==
PROVIDERS: Admitting Provider Advanced Practice Midwife; Visit Provider Advanced Practice Midwife
DX: O98.32 Other infections with a predominantly sexual mode of transmission complicating childbirth (principal); A60.00 Herpesviral infection of urogenital system, unspecified; O70.1 Second degree perineal laceration during delivery; O71.82 Other specified trauma to perineum and vulva; O99.344 Other mental disorders complicating childbirth; F32.A Depression, unspecified; F41.9 Anxiety disorder, unspecified; Z3A.37 37 weeks gestation of pregnancy; Z37.0 Single live birth; Z79.899 Other long term (current) drug therapy
CPT/HCPCS: 59025; 59050; 85025; 86850; 86900; 86901; 99218; J7120; G0378

== ENCOUNTER 2025-03-17 20:25 | Outpatient (CLI) | payer OTHER, SELFPAY ==
--- NOTE | 2025-03-17 20:36 | OB.TRI.HP_ITS ---
HPI - General General Date of Service: 03/17/25 HPI Narrative VALE VARGAS, is a 34 F @ 34.6 weeks who presents c/o contractions. PFSH PFSH Medical History (Updated 11/26/21 @ 00:01 by Samantha Chandra) Genital herpes affecting Home Medications ?Medication ?Instructions ?Recorded ?Last Taken ?Type 1 tab PO/SL DAILY Check with 12/27/20 10/07/21 07:00 History primary doctor sertraline 100 mg tablet (Zoloft) 100 mg PO DAILY [facility] with primary 12/27/20 10/07/21 07:00 History doctor acyclovir 400 mg tablet 400 mg PO TID Check with [facility] 11/07/21 11/07/21 History doctor Allergy/AdvReac Type Severity Reaction Status Date / Time tree nut Allergy Hives Verified 11/16/21 22:53 Family History Sister Family history of defect Surgical History (Updated 11/16/21 @ 23:40 by Miranda Gutierrez) History of surgery Social History (Updated 12/27/20 @ 17:58 by Yulia Benavidez) adopted: Yes Smoking Status: Never smoker History Elective abortions Hx Para 1 Spontaneous abortions Hx # Term Pregnancies Ectopic pregnancies Hx # Pregnancies Multiple births # of living children
--- NOTE | 2025-03-17 20:36 | OB.TRI.NOTE ---
HPI - General General Date of Service: 03/17/25 HPI Narrative VALE VARGAS, is a 34 F @ 34.6 weeks who presents c/o contractions. reports has been not feeling great- no fevers - but is not drinking much water. denies VB, LOF. PFSH PFS Medical History (Updated 03/17/25 @ 20:[address] Miriam Ramsey MD) Genital herpes affecting Home Medications ?Medication ?Instructions ?Recorded ?Last Taken ?Type 1 tab PO/SL DAILY Check with 12/27/20 10/07/21 07:00 History primary doctor sertraline 100 mg tablet (Zoloft) 100 mg PO DAILY Check with primary 12/27/20 10/07/21 07:00 History doctor acyclovir 400 mg tablet 400 mg PO TID Check with primary 11/07/21 11/07/21 History doctor ferrous sulfate 325 mg (65 mg 325 mg PO QDAY 03/17/25 Unknown History iron) tablet (Feosol) omeprazole 20 mg capsule,delayed 20 mg PO DAILY 03/17/25 Unknown History release Allergy/AdvReac Type Severity Reaction Status Date / Time tree nut Allergy Hives Verified 11/16/21 22:53 Family History Sister Family history of defect Surgical History (Updated 11/16/21 @ 23:40 by Miranda Gutierrez) History of surgery Social History (Updated 12/27/20 @ 17:58 by Yulia Benavidez) adopted: Yes Smoking Status: Never smoker History Elective abortions Hx Para 1 Spontaneous abortions Hx # Term Pregnancies Ectopic pregnancies Hx # Pregnancies Multiple births # of living children Physical Exam Narrative VE: Closed/thick/-3 Const alert and oriented x3 General Appearance: cooperative HEENT normocephalic GI GI Narrative: Gravid, non tender to palpation. OB / External & Speculum: external exam normal Extremity normal to inspection Skin no rashes or lesions noted Neuro oriented x3 and CN's II-XII intact bilaterally Psych Appearance: grossly normal Assessment & Plan (1) contractions: (2) 34 weeks gestation of : PLAN: Plan @ 34.6 weeks- c/o contractions 1) NST today 2) vaginal exam - no signs of labor 3) PO hydration reviewed 4) plan for dc home if NSt reactive
[2025-03-17 20:40] VITALS: BMI 31.3
[2025-03-17 20:43] VITALS: BP 125/79; PULSE 75; PULSE 79; RESP 14; TEMP 36.4; O2SAT 98
--- NOTE | 2025-03-19 08:09 | PCM.PN.BLA ---
Progress Note NST: 120 mod variability. + accels 15x15, No decels, Irregular contractions. Cat 1 reactive tracing.
== END 2025-03-17 21:15 | disposition home or self-care (01) ==
LOC: WPOUT 20:29 → WP 20:29
PROVIDERS: Referring Provider Obstetrics & Gynecology; Visit Provider Obstetrics & Gynecology
DX: O47.03 False labor before 37 completed weeks of gestation, third trimester (principal); O98.313 Other infections with a predominantly sexual mode of transmission complicating pregnancy, third trimester; A60.00 Herpesviral infection of urogenital system, unspecified; Z3A.34 34 weeks gestation of pregnancy; Z79.899 Other long term (current) drug therapy
CPT/HCPCS: 59025; 59050; 99221; G0378

== ENCOUNTER 2025-03-29 00:08 | Outpatient (CLI) | payer OTHER, SELFPAY ==
[2025-03-29 00:13] VITALS: BMI 18.6
--- OUTSIDE RECORDS SUMMARY | 2025-03-29 00:14 | XMS RPT_ITS | CCD ---
Author Organization [facility] Care Team Providers Care Litigation Legal Assistant Name Role Phone PHYSICIAN, NONE Primary Care Physician Unavailab le Unavailable Primary Care Provider Unavailabl e Unavailable Primary Care Provider Unavailbrendan SUÁREZ MD., DR. CAMACHO Attending Unavailabl e PHYSICIAN, NONE Primary Care Unavailable JOSE ARMANDO WALKER, DR. CAMACHO Admitting Unavailbrendan CASON MD, TANYA Alexander Consulting Unavailable LOUISE BENITEZ, KIARA Consulting Unavailable RAMIREZ BENITEZ, RODOLFO Salcedo Consulting Unavailab Elzbieta BENITEZ, WILLA Harmon Consulting Unavailable GLENN ZAVALA MD Attending Unavailable PHYSICIAN, NONE Primary Care Unavailable SUE VELEZ, DR. WILLA Hendrix Attending Satya ROGERS DO, DR. WILLA Hendrix Primary Care Satya ROGERS DO, DR. WILLA Hendrix Attending Satya ROGERS DO, DR. WILLA Hendrix Primary Care Naomievai labkaitlin Unavailable Primary Care Provider Unavailbrendan e Willa Domingo DO Primary Care Provider RAQUEL VALERO Attending Unavailab le Willa Domingo DO Primary Care Provider [phone] Willa Domingo DO Primary Care Provider José Miguel ParisWilla bill DO Primary Care Provider Willa Rogers DO Primary Care Provider SHERITA MADDOX Admitting Unavailable SHERITA MADDOX Attending Unavailable WILLA ROGERS Primary Care Unavailable MARLEE ALMANZA Referring Unavailable WILLA ROGERS Primary Care Unavailable WILLA ROGERS Primary Care Unavailable DENISE REICH Admitting Unavailable WILLA ROGERS Primary Care Unavailable DENISE REICH Attending Unavailable ARIANNA BYNUM Attending Unavailable SUE, WILLA M Primary Care Unavailable SELF Referring Unavailable Sue DO, Willa M Primary Care Provider Unav ailable SUE, WILLA M Primary Care Unavailable GEO TAYLOR Admitting Unavailable GEO TAYLOR Attending Unavailable MARLEE ALMANZA Referring Unavailable SUE, WILLA M Primary Care Unavailable Care Physician, No Primary Primary Care Provider Unavailable Roxy BENITEZ, Dr. Pineda Attending Provid er Roxy BENITEZ, Dr. Pineda Referring Provid er Miriam Ramsey Referring Unavail able Miriam Ramsey Attending Unavail able Care Physician, No Primary Primary Care Unava ilable SUE, WILLA M Primary Care Unavailable MARLEE ALMANZA Referring Unavailable SUE, WILLA M Primary Care Unavailable MARLEE ALMANZA Referring Unavailable MARLEE ALMANZA Attending Unavailable SUE, WILLA M Primary Care Unavailable SAMARIA HAJI Referring Unavailable SAMARIA HAJI Attending Unavailable SUE, WILLA M Primary Care Unavailable MARLEE ALMANZA Attending Unavailable SUE, WILLA M Primary Care Unavailable MARLEE ALMANZA Referring Unavailable SUE, WILLA M Primary Care Unavailable MARLEE ALMANZA Referring Unavailable SUE, WILLA M Primary Care Unavailable MARLEE ALMANZA Attending Unavailable SUE, WILLA M Primary Care Unavailable SAMARIA HAJI Referring Unavailable SAMARIA HAJI Attending Unavailable SUE, WILLA M Primary Care Unavailable MARLEE ALMANZA Referring Unavailable SUE, WILLA M Primary Care Unavailable SAMARIA HAJI Referring Unavailable SAMARIA HAJI Attending Unavailable SUE, WILLA M Primary Care Unavailable MARLEE ALMANZA Referring Unavailable SUE, WILLA M Primary Care Unavailable MARLEE ALMANZA Attending Unavailable SUE, WILLA M Primary Care Unavailable MARLEE ALMANZA Attending Unavailable SUE, WILLA M Primary Care Unavailable SELAM LOUISE Attending Unavailable SUE, WILLA M Primary Care Unavailable MARLEE ALMANZA Attending Unavailable SUE, WILLA M Primary Care Unavailable MARLEE ALMANZA Attending Unavailable SUE, WILLA M Primary Care Unavailable SAMARIA HAJI Attending Unavailable SUE, WILLA M Primary Care Unavailable MARLEE ALMANZA Attending Unavailable SUE, WILLA M Primary Care Unavailable SAMARIA HAJI Referring Unavailable SAMARIA HAJI Attending Unavailable WILLA ROGERS Primary Care Unavailable MARLEE ALMANZA Attending Unavailable Allergies Allergy Classification Reported Allergen(s) Allergy Type Date of Onset Reaction(s) Facility (2 sources) Nuts (not including peanuts) Food allergy [facility] (20 sources) tree nut, unspecified; Translations: [TREE NUTS] Drug Allergy 05-19-2020 [facility] Work Phone: (5 sources) tree nut, unspecified; Translations: [tree nut] Allergy to substance 12-27-2020 [facility] Repository Medications Current Medications Medication Drug Class(es) Dates Sig (Normalized) Sig (Original) acyclovir 400 mg oral tablet (18 sources) Herpesvirus Nucleoside Analog DNA Polymerase Inhibitor, Herpes Simplex Virus Nucleoside Analog DNA Polymerase Inhibitor, Herpes Zoster Virus Nucleoside Analog DNA Polymerase Inhibitor Start: 02-22-2025 take 1 tablet by mouth three times daily in the evening acyclovir (ZOVIRAX) 400 mg tablet Take 1 tablet by mouth three times a day. 90 tablet 4 02/23/2025 4:26 PM EDT 02/22/2025 Active Start: 10-18-2021 End: 12-26-2021 take 1 tablet by mouth three times daily in the evening acyclovir (ZOVIRAX) 400 mg tablet Take 1 tablet by mouth three times a day. 90 tablet 4 02/23/2025 4:26 PM EDT 02/22/2025 Active Comment on above: Take 1 tablet by david three times daily. aspirin 81 mg delayed release oral tablet (20 sources) Platelet Aggregation Inhibitor, Nonsteroidal Anti-inflammatory Drug Start: 09-08-2024 take 1 tablet by mouth once daily aspirin, enteric coated (ECOTRIN LOW STRENGTH) 81 mg EC tablet Indications: 7 weeks gestation of (HCC) Take 1 tablet by mouth once daily. 90 tablet 3 09/08/2024 Active Start: 11-07-2021 End: 11-17-2021 take 81 mg by mouth once daily Aspirin Discontinued 81 MG PO DAILY November 07, 2021 7:20pm November 17, 2021 5:56am Start: 09-18-2021 End: 12-26-2021 aspirin 81 mg oral delayed r elease tablet Dose : 81 mg = 1 tab(s), Oral, Daily, 0 Refill(s) Start Date: 09/18/21 Status: Ordered Start: 09-18-2021 aspirin 81 mg oral delayed release tablet Dose : 81 mg = 1 tab(s), Oral, Daily, 0 Refill(s) Start Date: 09/18/21 Status: Ordered Comment on above: Take 81 mg by mouth once daily. benzonatate 200 mg oral capsule (3 sources) Non-narcotic Antitussive Start: 3 End: take 1 capsule by mouth three times daily as needed for cough Benzonatate 200 mg capsule Indications: Viral URI with cough Take 1 capsule by mouth three times daily as needed for cough for up to 5 days. 15 capsule 0 08/04/2022 08/09/2022 Active Start: 04-19-2022 End: 08-04-2022 take 2 capsules by mouth every eight hours as needed for cough and cough benzonatate (TESSALON PERLES) 100 mg capsule Indications: Acute cough Take 2 capsules by mouth three times daily as needed. 60 capsule 0 04/19/2022 08/04/2022 Discontinued Comment on above: Take 2 capsules by m out three times daily as needed. [facility] times daily as needed for cough for up to 5 days. 24 hr desvenlafaxine succinate 25 mg extended release oral tablet (2 sources) Serotonin and Norepinephrine Reuptake Inhibitor Start: End: take 1 tablet by mouth once daily at breakfast desvenlafaxine ER (PRISTIQ) 25 mg 24 hr tablet Take 1 tablet by mouth daily with breakfast. 30 tablet 0 03/08/2023 04/07/2023 Active Comment on above: Take 1 tablet by david th daily with breakfast. drospirenone, contraceptive, (SLYND) 4 mg (28) tabet (6 sources) Start: 022 End: 023 take 1 tablet by mouth once daily drospirenone, contraceptive, (SLYND) 4 mg (28) tabet Take 1 tablet by mouth once daily for 28 days. 28 tablet 11 12/26/2021 10/05/2022 Discontinued (.All criteria met for discontinuation) Start: 12-26-2021 take 1 tablet by david th once daily drospirenone, contraceptive, (SLYND) 4 mg (28) tabet Take 1 tablet by mouth once daily for 28 days. 28 tablet 11 12/26/2021 Active Start: 12-26-2021 End: 01-23-2022 take 1 tablet by mouth once daily drospirenone, contraceptive, (SLYND) 4 mg (28) tabet Take 1 tablet by mouth once daily for 28 days. 28 tablet 11 12/26/2021 01/23/2022 Active Comment on above: Take 1 tablet by david th once daily for 28 days. ferrous sulfate 325 mg oral tablet (10 sources) Start: take 1 tablet by mouth once daily Ferrous Sulfate (Feosol) 325 mg (65 mg iron) tablet Active 325 mg PO daily March 17, 2025 12:00am fluconazole 150 mg oral tablet (5 sources) Azole Antifungal Start: End: take 1 tablet by mouth once fluconazole (DIFLUCAN) 150 mg tablet Take 1 tablet by mouth one time only for 1 dose. 1 tablet 03/06/2024 03/06/2024 Active Start: 10-16-2022 End: 10-16-2022 take 1 tablet by mouth once fluconazole (DIFLUCAN) 150 mg tablet Take 1 tablet by mouth one time only for 1 dose. 1 tablet 0 10/16/2022 10/16/2022 Start: 04-25-2022 fluconazole (D IFLUCAN) 150 mg tablet Take one tablet by mouth once. Then repeat every 3 days for 3 doses. 3 tablet 0 04/25/2022 Active Comment on above: Take one tablet by out once. Then repeat every 3 days for 3 doses. Take 1 tablet by david th one time only for 1 dose. hydrOXYzine hydrochloride 25 mg oral tablet (4 sources) Antihistamine Start: 11-21-19 End: 01-06-20 take 1 tablet by mouth every eight hours as needed hydrOXYzine HCl (ATARAX) 25 mg tablet Take 1 tablet by mouth three times daily as needed for itching/rash or anxiety. 90 tablet 0 12/06/2022 01/05/2023 Active Comment on above: Take 1 tablet by [facility] three times daily as needed for itching/rash or anxiety. nirmatrelvir tablet 300 mg (150 mg x 2) and ritonavir tablet 100 mg in a dose pack (PAXLOVID) (4 sources) Start: 10-06-19 End: 10-11-19 nirmatrelvir tablet 300 mg (150 mg x 2) and ritonavir tablet 100 mg in a dose pack (PAXLOVID) Administer TWO pink nirmatrelvir 150 mg tablets and ONE white ritonavir 100 mg tablet for a total of three tablets twice daily. 30 tablet 0 10/05/2022 10/10/2022 Active Comment on above: Administer TWO pink nirmatrelvir 150 mg tablets and ONE white ritonavir 100 mg tablet for a total of three tablets twice daily. ofloxacin 3 mg/ml ophthalmic solution (2 sources) Quinolone Antimicrobial Start: 12-18-19 End: 12-25-19 take 2 drop(s) into the eye(s) four times daily ofloxacin (OCUFLOX) 0.3 % ophthalmic solution Indications: Acute bacterial conjunctivitis of both eyes Use 2 Drops in both eyes four times daily for 7 days. 5 mL 0 12/17/2022 12/24/2022 Active Comment on above: Use 2 Drops in both eyes four times daily for 7 days. omeprazole 20 mg delayed release oral capsule (6 sources) Proton Pump Inhibitor Start: 03-17-20 take 1 capsule by mouth once daily Omeprazole 20 mg capsule,delayed release(DR/EC) Active 20 mg PO DAILY March 17, 2025 12:00am Start: 02-22-2025 take 1 capsule by [facility] once daily in the evening omeprazole (PRILOSEC) 40 mg capsule Take 1 capsule by mouth once daily. 30 capsule 2 02/23/2025 4:26 PM EDT 02/22/2025 Active ondansetron 4 mg disintegrating oral tablet (20 sources) Serotonin-3 Receptor Antagonist Start: 09-03-2024 take 1 tablet by mouth every eight hours as needed ondansetron orally disintegrating (ZOFRAN ODT) 4 mg disintegrating tablet Take 1 tablet by mouth every 8 hours as needed for nausea/vomiting. 60 tablet 1 09/03/2024 Active Start: 10-05-2022 End: 10-09-2022 take 1 tablet by mouth every six hours as needed ondansetron orally disintegrating (ZOFRAN ODT) 4 mg disintegrating tablet Take 1 tablet by mouth every 6 hours as needed for nausea/vomiting for up to 4 days. 15 tablet 0 10/05/2022 10/09/2022 Active Start: 09-18-2021 End: 12-26-2021 take 1 tablet by mouth every eight hours as needed for nausea Ondansetron Hcl (Zofran) 4 mg Tablet Discontinued 4 mg PO Q8H as needed for Nausea November 07, 2021 12:00am November 17, 2021 5:56am Comment on above: Take 1 tablet by david th every 8 hours as needed for nausea/vomiting. Take 1 tablet by david th every 6 hours as needed for nausea/vomiting for up to 4 days. predniSONE 20 mg oral tablet (1 source) Start: 3 End: 3 take 1 tablet by mouth twice daily predniSONE (DELTASONE) 20 mg tablet Indications: Viral URI with cough Take 1 tablet by mouth twice daily for 5 days. 10 tablet 0 08/04/2022 08/09/2022 Active Comment on above: Take 1 tablet by david th twice daily for 5 days. (5 sources) Start: 1 take 1 tablet by mouth once daily Active 1 TABLET SL/PO DAILY December 27, 2020 3:06pm Start: 12-27-2020 Activ e 1 {tbl} SL/PO DAILY December 27, 2020 12:00am Check with primary doctor Multivitamins with Vitamin B Complex, Vitamin C, Minerals and L-Methylfolate oral capsule (2 sources) Start: 11-24-2020 take 1 capsule by mouth once daily Multivitamins with Vitamin B Complex, Vitamin C, Minerals and L-Methylfolate oral capsule Dose = 1 cap(s), Oral, Daily, 0 Refill(s) Start Date: 11/24/20 Status: Ordered vit no.124/iron/folic ( VITAMIN ORAL) (13 sources) vit no.124/iron/folic ( VITAMIN ORAL) Take by mouth. Active [id number] 28 mg-800 mcg- 200 mg cap (15 sources) Start: 11-03-2024 take 1 capsule by mouth once daily [id number] a 28 mg-800 mcg- 200 mg cap Take 1 capsule by mouth once daily. 30 capsule 11 11/03/2024 Active sertraline 100 mg oral tablet (20 sources) Serotonin Reuptake Inhibitor Start: 08-02-2023 End: 02-11-2025 take 1 tablet by mouth in the morning, then take 0.5 tablet by mouth once daily sertraline (ZOLOFT) 100 mg tablet Take 1 and 1/2 tablets by mouth once daily. 135 tablet 11/13/2024 8:01 AM EDT 11/12/2024 Active Start: 12-27-2020 End: 11-02-2022 take 1 tablet by mouth once daily sertraline (ZOLOFT) 100 mg tablet Take 1 tablet by mouth once daily. 30 tablet 2 11/14/2021 11/02/2022 Discontinued Start: 11-24-2020 Zoloft 100, Or al, qDay, 0 Refill(s) Start Date: 11/24/20 Status: Ordered Comment on above: Take 1 tablet by david th once daily. Take 1 and 1/2 table ts by mouth once daily. 24 hr venlafaxine 75 mg extended release oral capsule (3 sources) Serotonin and Norepinephrine Reuptake Inhibitor Start: 11-21-19 End: 12-21-19 23 take 1 capsule by mouth once daily venlafaxine ER (EFFEXOR XR) 75 mg 24 hr capsule Take 1 capsule by mouth once daily. 30 capsule 2 11/20/2022 12/20/2022 Active Start: 11-02-2022 End: 12-16-2022 take 1 capsule by mouth once daily at mealtime, then take 2 capsules by mouth once daily at mealtime venlafaxine ER (EFFEXOR XR) 37.5 mg 24 hr capsule Take 1 capsule by mouth daily with food for 14 days, THEN 2 capsules daily with food. 74 capsule 0 11/02/2022 11/20/2022 Discontinued Comment on above: Take 1 capsule by mo uth daily with food for 14 days, THEN 2 capsules daily with food. Take 1 capsule by mo uth once daily. Completed/Discontinued Medications Medication Drug Class(es) Dates Sig (Normalized) Sig (Original) acetaminophen 325 mg oral capsule (7 sources) acetaminophen 32 5 mg cap Take by mouth. 0 Active Comment on above: Take by mouth. acetaminophen 325 mg / HYDROcodone bitartrate 5 mg oral tablet (2 sources) Opioid Agonist Start: 10-05-2022 End: 10-08-2022 take 1 tablet by mouth every six hours as needed for pain HYDROcodone-acetam inophen (NORCO) 5-325 mg per tablet Indications: Lower abdominal pain Take 1 tablet by mouth every 6 hours as needed for pain for up to 3 days. 5 tablet 0 10/05/2022 10/08/2022 Comment on above: Take 1 tablet by david th every 6 hours as needed for pain for up to 3 days. amoxicillin 80 mg/ml oral suspension (9 sources) Penicillin-class Antibacterial Start: 04-19-2022 End: 11-02-2022 take 10.9 mL by mouth twice daily amoxicillin (AMOXIL) 400 mg/5 mL suspension Indications: Tonsillitis , Bacterial sinusitis Take 10.9 mL by mouth twice daily. 218 mL 0 04/19/2022 11/02/2022 Discontinued (Course of therapy completed) Comment on above: Take 10.9 mL by mout h twice daily. 12 hr buPROPion hydrochloride 100 mg extended release oral tablet (20 sources) Aminoketone Start: 08-14-2024 End: 09-13-2024 take 1 tablet by mouth once daily at breakfast buPROPion SR (WELLBUTRIN SR) 100 mg 12 hr tablet Take 1 tablet by mouth daily with breakfast. 30 tablet 08/14/2024 08/28/2024 Discontinued Start: 05-04-2024 End: 08-14-2024 take 1 tablet by mouth once daily at breakfast buPROPion SR (WELLBUTRIN SR) 200 mg 12 hr tablet Take 1 tablet by mouth daily with breakfast. 30 tablet 1 05/04/2024 08/14/2024 Discontinued Start: 08-02-2023 End: 05-04-2024 take 1 tablet by mouth twice daily buPROPion (WELLBUTRIN) 100 mg tablet Take 1 tablet by mouth two times a day. 180 tablet 01/31/2024 05/04/2024 Discontinued (Side Effects) Comment on above: Take 1 tablet by david th two times a day. citalopram 20 mg oral tablet (3 sources) Serotonin Reuptake Inhibitor Start: 11-02-2022 End: 12-02-2022 take 1 tablet by mouth once daily citalopram (CELEXA) 20 mg tablet Take 1 tablet by mouth once daily. 0 11/02/2022 11/20/2022 Discontinued (Lack of Efficacy) Start: 09-18-2022 End: 11-02-2022 take 1 tablet by mouth once daily citalopram (CELEXA) 40 mg tablet Take 40 mg by mouth once daily. 0 09/18/2022 11/02/2022 Discontinued (Adjust Sig - Block E-Cancel) Comment on above: Take 1 tablet by david th once daily. Take 40 mg by mouth once daily. cyclobenzaprine hydrochloride 5 mg oral tablet (13 sources) Muscle Relaxant Start: 09-22-19 End: 12-27-19 take 1 tablet by mouth three times daily cyclobenzaprine (FLEXERIL) 5 mg tablet Take 1 tablet by mouth three times daily. 30 tablet 0 09/21/2021 12/26/2021 Discontinued (Course of therapy completed) Comment on above: Take 1 tablet by david th three times daily. EPINEPHrine 0.01 mg/ml / lidocaine hydrochloride 10 mg/ml injectable solution (1 source) Antiarrhythmic, alpha-Adrenergic Agonist, beta-Adrenergic Agonist, Catecholamine, Amide Local Anesthetic Start: 09-30-19 End: 09-30-19 lidocaine 1%-EPINEPHrine 1:100,000 0.5 mL injection famotidine 40 mg oral tablet (20 sources) Histamine-2 Receptor Antagonist Start: 12-31-19 End: 03-31-20 take 1 tablet by mouth once daily famotidine (PEPCID) 40 mg tablet Indications: 23 weeks gestation of ([facility]) , Supervision of high risk in second trimester ([facility]) , Heartburn Take 1 tablet by mouth once daily. 90 tablet 1 12/31/2024 4:54 PM EDT 12/30/2024 02/22/2025 Discontinued (Course of therapy completed) Start: 12-27-2020 End: 12-26-2021 take 1 tablet by mouth once daily famotidine (PEPCID) 40 mg tablet Take 1 tablet by mouth once daily. 30 tablet 4 09/15/2021 12/26/2021 Discontinued (Course of therapy completed) Comment on above: Take 1 tablet by david th once daily. FLUoxetine 40 mg oral capsule (6 sources) Serotonin Reuptake Inhibitor Start: 3 End: take 1 capsule by mouth once daily FLUoxetine (PROZAC) 40 mg capsule Take 1 capsule by mouth once daily. 90 capsule 1 01/02/2023 03/08/2023 Discontinued (Side Effects) Start: 12-06-2022 End: 01-05-2023 take 1 capsule by mouth once daily FLUoxetine (PROZAC) 20 mg capsule Take 1 capsule by mouth once daily. 30 capsule 1 12/06/2022 01/02/2023 Discontinued (Course of therapy completed) Comment on above: Take [facility] once daily. methylPREDNISolone 4 mg oral tablet (2 sources) Corticosteroid Start: 2021 End: 2022 take 1 tablet by mouth once methylPREDNISolone (MEDROL, JAROD,) 4 mg Dose-Pack Indications: Tonsillitis Take by mouth per package instructions 1 tablet 0 04/19/2022 08/04/2022 Discontinued Comment on above: Take by mouth per pa ckage instructions metoclopramide 5 mg oral tablet (1 source) Dopamine-2 Receptor Antagonist Start: 2021 take 1 tablet by mouth four times daily metoclopramide HCl (REGLAN) 5 mg tablet Take 1 tablet by mouth four times daily. 30 tablet 0 09/21/2021 Active Comment on above: Take 1 tablet by david th four times daily. Vitamin with 29 mg Iron ( PLUS) 29 mg iron- 1 mg (20 sources) Start: 2020 End: 2022 take 1 tablet by mouth once daily Vitamin with 29 mg Iron ( PLUS) 29 mg iron- 1 mg Take 1 tablet by mouth once daily. With DHA and folic acid as covered by insurance. 30 tablet 11 06/07/2021 11/02/2022 Discontinued (Course of therapy completed) Start: 06-07-2021 take 1 tablet by david th once daily Vitamin with 29 mg Iron ( PLUS) 29 mg iron- 1 mg Take 1 tablet by mouth once daily. With DHA and folic acid as covered by insurance. 30 tablet 11 06/07/2021 Active Comment on above: Take 1 tablet by david once daily. With DHA and folic acid as covered by insurance. proparacaine hydrochloride 5 mg/ml ophthalmic solution (2 sources) Local Anesthetic Start: 5 End: proparacaine 0.5 % 1 drop (ALCAINE) Pseudoephedrine (7 sources) alpha-Adrenergic Agonist pseudoe phedrine HCl (SUDAFED ORAL) Take by mouth. 0 Active Comment on above: Take by mouth. tropicamide 10 mg/ml ophthalmic solution (2 sources) Anticholinergic Start: 5 End: tropicamide 1 % 1 drop (MYDRIACYL) Problems Active Problems Problem Classification Problem Date Documented Da te Episodic/Chronic Adjustment disorders (2 sources) Grief finding; Translations: [Adjustment disorder with depressed mood] 11-01-2023 Chronic Administrative/social admission (1 source) Stress; Translations: [Other specified problems related to psychosocial circumstances] 11-12-2024 Episodic Anxiety disorders (20 sources) Anxiety; Translations: [Anxiety disorder, unspecified] Onset: 11-02-2022 Chronic Anxiety disorders (1 source) Indifference; Translations: [Demoralization and apathy] 05-04-2024 Episodic Contraceptive and procreative management (4 sources) Patient encounter status; Translations: [Encounter for initial prescription of contraceptive pills] Episodic Deficiency and other anemia (2 sources) Iron deficiency anemia; Translations: [Iron deficiency anemia, unspecified] 11-16-2021 Episodic Deficiency and other anemia (1 source) Iron deficiency anemia, unspecified; Translations: [Iron deficiency anemia, unspecified] Episodic E Codes: Adverse effects of medical drugs (1 source) Adverse reaction to drug; Translations: [Adverse effect of unspecified drugs, medicaments and biological substances, initial encounter] 05-04-2024 Episodic Early or threatened labor (20 sources) Premature uterine contraction; Translations: [False labor before 37 completed weeks of gestation, unspecified trimester] Onset: 11-28-2020 Resolved: 12-26-2021 10-06-2021 Episodic Inflammation; infection of eye (except that caused by tuberculosis or sexually transmitteddisease) (1 source) Acute infectious conjunctivitis; Translations: [Unspecified acute conjunctivitis, bilateral] Episodic Menstrual disorders (1 source) Missed period; Translations: [Irregular menstruation, unspecified] 12-18-2023 Chronic Mood disorders (10 sources) Depressive disorder; Translations: [Depression] Chronic Mood disorders (1 source) Mood disorders; Translations: [Anxiety and depression] Onset: 09-08-2024 Neoplasms of unspecified nature or uncertain behavior (1 source) Neoplastic disease; Translations: [Neoplasm of unspecified behavior of bone, soft tissue, and skin] 09-30-2023 Episodic Other aftercare (3 sources) Long-term current use of drug therapy; Translations: [Other residential (current) drug therapy] 05-04-2024 Episodic Other complications of ; puerperium affecting management of mother (5 sources) Trauma to perineum and/or vulva during delivery; Translations: [Other obstetric injury to pelvic organs] 12-27-2020 Episodic Other complications of ; puerperium affecting management of mother (1 source) Other obstetric injury to pelvic organs; Translations: [Other specified trauma to perineum and vulva, delivered, with or without mention of antepartum condition] Episodic Other complications of (20 sources) Anemia in mother complicating , childbirth AND/OR puerperium; Translations: [Anemia complicating , third trimester] Onset: 09-15-2021 Resolved: 12-26-2021 09-15-2021 Chronic Other complications of (1 source) Anemia complicating , third trimester; Translations: [Antepartum anemia complicating in third trimester (HCC)] Onset: 02-22-2025 Chronic Other complications of (1 source) Pain in female pelvis; Translations: [Other specified related conditions, unspecified trimester] Episodic Other complications of (20 sources) High risk ; Translations: [Supervision of high risk , unspecified, unspecified trimester] Onset: 04-13-2021 Resolved: 03-05-2025 04-13-2021 Episodic Other complications of (5 sources) Depressive disorder in mother complicating ; Translations: [Other mental disorders complicating , unspecified trimester] 12-27-2020 Episodic Other complications of (3 sources) Reduced movement; Translations: [Decreased movements, unspecified trimester, not applicable or unspecified] 10-08-2021 Episodic Other complications of (2 sources) Decreased movements, unspecified trimester, not applicable or unspecified; Translations: [Decreased movements, affecting management of mother, unspecified as to episode of care] Episodic Other complications of (5 sources) Uterine size for dates discrepancy; Translations: [Uterine size-date discrepancy, third trimester] Episodic Other complications of (1 source) Supervision of other high risk pregnancies, unspecified trimester; Translations: [Supervision of other high-risk ] Episodic Other complications of (2 sources) Uterine size-date discrepancy, third trimester; Translations: [Uterine size-date discrepancy, third trimester (HCC)] Onset: 03-05-2025 Episodic Other complications of (1 source) Supervision of other high risk pregnancies, third trimester; Translations: [Supervision of other high risk pregnancies, third trimester (HCC)] Onset: 03-05-2025 Episodic Other complications of (1 source) Other specified related conditions, third trimester; Translations: [Heartburn during in third trimester (HCC)] Onset: 02-22-2025 Episodic Other complications of (1 source) Supervision of high risk , unspecified, third trimester; Translations: [Supervision of high risk in third trimester ([facility])] Onset: 02-11-2025 Episodic Other complications of (1 source) Supervision of high risk , unspecified, second trimester; Translations: [Supervision of high risk in second trimester ([facility])] Onset: 01-25-2025 Episodic Other eye disorders (3 sources) Hemophthalmos, left eye; Translations: [Hemophthalmos, except current injury] Onset: 02-11-2025 01-25-2025 Chronic Other eye disorders (1 source) Conjunctival hemorrhage of left eye; Translations: [Conjunctival hemorrhage, left eye] 01-26-2025 Episodic Other eye disorders (1 source) Conjunctival hemorrhage, left eye; Translations: [Conjunctival hemorrhage of left eye] Onset: 01-25-2025 Episodic Other female genital disorders (1 source) Abnormal uterine bleeding; Translations: [Abnormal uterine and vaginal bleeding, unspecified] 11-06-2023 Chronic Other female genital disorders (1 source) Vaginal discharge; Translations: [Other specified noninflammatory disorders of vagina] Episodic Other gastrointestinal disorders (10 sources) Heartburn; Translations: [Heartburn] Onset: 02-22-2025 12-30-2024 Episodic Other gastrointestinal disorders (2 sources) Heartburn; Translations: [Heartburn during in third trimester (HCC)] Onset: 12-30-2024 Episodic Other screening for suspected conditions (not mental disorders or infectious disease) (5 sources) Encounter for screening for lipoid disorders; Translations: [Cancer cervix screening status] Onset: 05-15-2022 Episodic Other upper respiratory infections (3 sources) Viral upper respiratory tract infection; Translations: [Acute upper respiratory infection, unspecified] Episodic Polyhydramnios and other problems of amniotic cavity (1 source) Spontaneous rupture of membranes 12-27-2020 Episodic Residual codes; unclassified (8 sources) 31 weeks gestation of ; Translations: [ state, incidental] Onset: 02-18-2025 Episodic Residual codes; unclassified (1 source) Gestation period, 32 weeks; Translations: [32 weeks gestation of ] Episodic Residual codes; unclassified (2 sources) Gestation period, 33 weeks; Translations: [33 weeks gestation of ] Episodic Residual codes; unclassified (3 sources) Gestation period, 34 weeks; Translations: [34 weeks gestation of ] Episodic Residual codes; unclassified (1 source) Gestation period, 36 weeks; Translations: [36 weeks gestation of ] Episodic Residual codes; unclassified (2 sources) Gestation period, 35 weeks; Translations: [35 weeks gestation of ] 11-09-2021 Episodic Residual codes; unclassified (2 sources) Gestation period, 37 weeks; Translations: [37 weeks gestation of ] 11-26-2021 Episodic Residual codes; unclassified (1 source) 35 weeks gestation of ; Translations: [ state, incidental] Episodic Residual codes; unclassified (1 source) 37 weeks gestation of ; Translations: [ state, incidental] Episodic Residual codes; unclassified (1 source) Family history of malignant neoplasm of ovary; Translations: [Family history of malignant neoplasm of ovary] Episodic Residual codes; unclassified (1 source) Family history of malignant melanoma; Translations: [Family history of malignant neoplasm of other organs or systems] 09-30-2023 Episodic Residual codes; unclassified (1 source) Gestation period, 8 weeks; Translations: [8 weeks gestation of ] 08-28-2024 Episodic Residual codes; unclassified (4 sources) Gestation period, 7 weeks; Translations: [Less than 8 weeks gestation of ] 09-10-2024 Episodic Residual codes; unclassified (20 sources) H/O: depression; Translations: [Personal history of other complications of , childbirth and the puerperium] 09-08-2024 Episodic Residual codes; unclassified (2 sources) Gestation period, 11 weeks; Translations: [11 weeks gestation of ] 10-06-2024 Episodic Residual codes; unclassified (1 source) Gestation period, 15 weeks; Translations: [15 weeks gestation of ] 11-03-2024 Episodic Residual codes; unclassified (1 source) Gestation period, 23 weeks; Translations: [23 weeks gestation of ] 12-30-2024 Episodic Residual codes; unclassified (1 source) Gestation period, 27 weeks; Translations: [27 weeks gestation of ] 01-25-2025 Episodic Residual codes; unclassified (1 source) Gestation period, 30 weeks; Translations: [30 weeks gestation of ] 02-11-2025 Episodic Residual codes; unclassified (1 source) 32 weeks gestation of ; Translations: [32 weeks gestation of (HCC)] Onset: 02-18-2025 Episodic Residual codes; unclassified (1 source) 34 weeks gestation of ; Translations: [34 weeks gestation of ] Onset: 03-18-2025 Episodic Residual codes; unclassified (1 source) 33 weeks gestation of ; Translations: [33 weeks gestation of (HCC)] Onset: 03-05-2025 Episodic Residual codes; unclassified (1 source) 30 weeks gestation of ; Translations: [30 weeks gestation of (HCC)] Onset: 02-11-2025 Episodic Residual codes; unclassified (1 source) 27 weeks gestation of ; Translations: [27 weeks gestation of (HCC)] Onset: 01-25-2025 Episodic Residual codes; unclassified (1 source) 23 weeks gestation of ; Translations: [23 weeks gestation of (HCC)] Onset: 01-25-2025 Episodic Unclassified (6 sources) Normal labor; Translations: [Active labor at term] Unclassified (4 sources) Spontaneous rupture of membranes; Translations: [Spontaneous rupture of amniotic membranes] Unclassified (3 sources) APPOINTMENT CANCELLED 03-07-2023 Unclassified (20 sources) [facility] - [facility]ON Onset: 09-08-2024 09-08-2024 Unclassified (20 sources) Education - [place] Onset: 09-08-2024 09-08-2024 Unclassified (1 source) NO SHOW 10-30-2024 Unclassified (1 source) Long-term current use of drug therapy 11-12-2024 Viral infection (5 sources) Genital herpes simplex; Translations: [Herpesviral infection of urogenital system, unspecified] 12-27-2020 Chronic Viral infection (20 sources) Viral disease; Translations: [Viral infection, unspecified] Onset: 09-01-2024 09-01-2024 Episodic Past or Other Problems Problem Classification Problem Date Documented Date Episodic/Chronic Cancer of cervix (20 sources) Atypical squamous cells of undetermined significance on cervical Papanicolaou smear; Translations: [Atypical squamous cells of undetermined significance on cytologic smear of cervix (ASC-US)] Onset: 02-17-2021 02-17-2021 Episodic Conditions associated with dizziness or vertigo (2 sources) Dizziness; Translations: [Dizziness and giddiness] Onset: 09-01-2024 09-01-2024 Episodic Immunizations and screening for infectious disease (20 sources) Herpes simplex type 2 infection; Translations: [Other specified abnormal immunological findings in serum] Onset: 05-19-2020 05-08-2021 Episodic Influenza (1 source) Influenza due to unidentified influenza virus with other respiratory manifestations; Translations: [Influenza] Onset: 09-02-2024 Episodic Mycoses (20 sources) Candidiasis of vagina; Translations: [Candidiasis of vulva and vagina] Onset: 04-15-2021 Resolved: 12-26-2021 04-15-2021 Episodic Nausea and vomiting (2 sources) Nausea and vomiting; Translations: [Nausea with vomiting, unspecified] Onset: 09-01-2024 09-01-2024 Episodic Noninfectious gastroenteritis (1 source) Noninfective gastroenteritis and colitis, unspecified; Translations: [Gastroenteritis] Onset: 09-02-2024 Episodic Other complications of (20 sources) Finding of pattern of ; Translations: [Supervision of other high risk pregnancies, unspecified trimester] Onset: 04-13-2021 Resolved: 06-14-2022 Episodic Other complications of (20 sources) Disease caused by 2019-nCoV; Translations: [Other viral diseases complicating , first trimester] Onset: 05-19-2020 Resolved: 02-07-2021 02-07-2021 Episodic Other complications of (2 sources) Supervision of high risk , unspecified, unspecified trimester; Translations: [Supervision of high risk , antepartum (HCC)] Onset: 09-10-2024 Episodic Other female genital disorders (20 sources) History of premature labor; Translations: [Personal history of pre-term labor] Onset: 04-23-2021 04-23-2021 Episodic Other female genital disorders (2 sources) Personal history of pre-term labor; Translations: [Personal history of pre-term labor] Onset: 09-08-2024 Episodic Other and delivery including normal (20 sources) ; Translations: [Normal ] Onset: 12-26-2020 Resolved: 02-17-2021 09-18-2021 Episodic Residual codes; unclassified (14 sources) Gestation period, 31 weeks; Translations: [31 weeks gestation of ] Onset: 02-18-2025 Resolved: 03-05-2025 Episodic Residual codes; unclassified (20 sources) FH: Congenital anomaly; Translations: [Family history of other congenital malformations, deformations and chromosomal abnormalities] Onset: 05-19-2020 05-19-2020 Episodic Residual codes; unclassified (20 sources) Family history of Cleveland-Sachs disease; Translations: [Family history of other endocrine, nutritional and metabolic diseases] Onset: 05-19-2020 Resolved: 04-23-2021 04-23-2021 Episodic Residual codes; unclassified (3 sources) Less than 8 weeks gestation of ; Translations: [7 weeks gestation of ] Onset: 09-02-2024 Episodic Residual codes; unclassified (1 source) 19 weeks gestation of ; Translations: [19 weeks gestation of (HCC)] Onset: 12-01-2024 Episodic Residual codes; unclassified (1 source) 15 weeks gestation of ; Translations: [15 weeks gestation of (HCC)] Onset: 11-03-2024 Episodic Residual codes; unclassified (1 source) Personal history of other complications of , childbirth and the puerperium; Translations: [History of depression] Onset: 09-08-2024 Episodic Screening and history of mental health and substance abuse codes (20 sources) H/O: anxiety state; Translations: [Personal history of other mental and behavioral disorders] Onset: 05-19-2020 Resolved: 11-03-2024 04-13-2021 Episodic Results Test Name Value Interpretation Reference Range Facility [facility] MARZENA PICKERING ([id number]) 1990 [facility] Date Time Provider Department 03/23/25 ANJALI GUZMÁN [facility] During your visit today, we recorded the following information about you: Anjali Guzmán RN 03/23/2025 12:28 PM Signed Day # 5 since COVID19 symptom onset. Caregiver approved to return to work tomorrow for COVID19 absence per survey. Leadership notified. Doc flowsheets updated. Anjali Guzmán RN Allergies As of Date: 03/23/2025 Noted Allergy Reaction TREE NUTS 05/19/2020 4 - Hives Comments: Occasionally gets hives when she eats cashews and almonds Date Reviewed: 03/05/2025 Reviewed by: Saul Cherry LPN - Fully Assessed Reason for Visit: [facility] COVID Outreach [[id number]] Prescriptions as of 03/23/2025 - omeprazole (PRILOSEC) 40 mg capsule Take 1 capsule by mouth once daily. - acyclovir (ZOVIRAX) 400 mg tablet Take 1 tablet by mouth three times a day. - ferrous sulfate (IRON, FERROUS SULFATE,) 325 mg (65 mg iron) tablet Take 325 mg by mouth. - sertraline (ZOLOFT) 100 mg tablet Take 1 and 1/2 tablets by mouth once daily. - [id number] 28 mg-800 mcg- 200 mg cap Take 1 capsule by mouth once daily. - aspirin, enteric coated (ECOTRIN LOW STRENGTH) 81 mg EC tablet Take 1 tablet by mouth once daily. - ondansetron orally disintegrating (ZOFRAN ODT) 4 mg disintegrating tablet Take 1 tablet by mouth every 8 hours as needed for nausea/vomiting. - multivit no.38-folate 6-patito (PRENATE AM) 1-500 mg tab (Discontinued) Take 1 tablet by mouth once daily. 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] 05/19/2020 Family history of Cleveland-Sachs disease [Z83.49] 05/19/2020 Family history of defects [Z82.79] 05/19/2020 labor in third trimester without delive*11/28/2020 02/07/2021 Encounter for supervision of normal i*12/26/2020 02/17/2021 ASCUS of cervix with negative high risk HPV [R8*02/17/2021 Short interval between pregnancies affecting pr*04/13/2021 12/26/2021 Supervision of high risk , antepartum *04/13/2021 03/05/2025 Patient request for diagnostic testing [Z01.89] 04/13/2021 12/26/2021 Vaginal yeast infection [B37.31] 04/15/2021 12/26/2021 History of labor [Z87.51] 04/23/2021 Antepartum anemia complicating in thi*09/15/2021 contractions [O47.00] 10/06/2021 12/26/2021 GUIDO (generalized anxiety disorder) [F41.1] 11/02/2022 Herpes simplex virus (HSV) infection [B00.9] History of depression [Z87.59, Z86.5* Anxiety and depression [F41.9, F32.A] 09/08/2024 contractions (HCC) [O47.00] 01/18/2025 31 weeks gestation of (HCC) [Z3A.31] 02/18/2025 03/05/2025 Heartburn during in third trimester (*02/22/2025 Supervision of other high risk pregnancies, thi*03/05/2025 Encounter Status:Closed by ANJALI GUZMÁN on 03/23/25 [facility] 03-20-2025 [facility] Telephone ([facility]) ----- MARZENA PICKERING ([id number]) 1990 [facility] Date Time Provider Department 03/20/25 JESSY SEGURA During your visit today, we recorded the following information about you: Jessy Segura RN 03/20/2025 3:32 PM Signed Positive Caregiver COVID Call Patient Name: Marzena Pickering Primary Care Physician: Willa Domingo DO Service Date: 03/20/2025 Service Time: 3:28 PM Positive Caregiver COVID Call Marzena Pickering Lab Results Component Value Date COVID19 Not detected 09/01/2024 Covid Immunization Dates This patient has no relevant Health Maintenance data. COVID Symptom Onset: 03/18/25 -Best email for electronic communication: [email or web address]; -Email sent to leadership: [email or web address] - Employee ID: [id number] Plan - Discussed positive COVID19 result. Reinforced self-isolation, avoiding public areas and gatherings. Mask while home with family and not isolated alone - Advised no work until cleared by Occupational Health. Clearance will be provided through RTW COVID19 questionnaire sent through Z[employer]ante message, followed by clearance email sent to rehabilitation manager (emails will be sent Saturday through Saturday) - Advised to contact PCP regarding positive test result/symptom management - Advised to seek evaluation by primary care provider, Express [facility], [facility], or ED with worsening or escalating symptoms. - Provided with caregiver follow-up email to preferred e-mail - Advised to call the COVID Hotline with outstanding questions/comments/concer ns. Signature: Jessy Segura RN Patient Name: Marzena Pickering Date: 03/20/2025 Time: 3:29 PM Pager/Contact: [phone] Allergies As of Date: 03/20/2025 Noted Allergy Reaction TREE NUTS 05/19/2020 4 - Hives Comments: Occasionally gets hives when she eats cashews and almonds Date Reviewed: 03/05/2025 Reviewed by: Saul Cherry LPN - Fully Assessed Reason for Visit: [facility] COVID Outreach [[id number]] Prescriptions as of 03/20/2025 - omeprazole (PRILOSEC) 40 mg capsule Take 1 capsule by mouth once daily. - acyclovir (ZOVIRAX) 400 mg tablet Take 1 tablet by mouth three times a day. - ferrous sulfate (IRON, FERROUS SULFATE,) 325 mg (65 mg iron) tablet Take 325 mg by mouth. - sertraline (ZOLOFT) 100 mg tablet Take 1 and 1/2 tablets by mouth once daily. - [id number]-hgz 28 mg-800 mcg- 200 mg cap Take 1 capsule by mouth once daily. - aspirin, enteric coated (ECOTRIN LOW STRENGTH) 81 mg EC tablet Take 1 tablet by mouth once daily. - ondansetron orally disintegrating (ZOFRAN ODT) 4 mg disintegrating tablet Take 1 tablet by mouth every 8 hours as needed for nausea/vomiting. - multivit no.38-folate 6-patito (PRENATE AM) 1-500 mg tab (Discontinued) Take 1 tablet by mouth once daily. 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] 05/19/2020 Family history of Cleveland-Sachs disease [Z83.49] 05/19/2020 Family history of defects [Z82.79] 05/19/2020 labor in third trimester without delive*11/28/2020 02/07/2021 Encounter for supervision of normal i*12/26/2020 02/17/2021 ASCUS of cervix with negative high risk HPV [R8*02/17/2021 Short interval between pregnancies affecting pr*04/13/2021 12/26/2021 Supervision of high risk , antepartum *04/13/2021 03/05/2025 Patient request for diagnostic testing [Z01.89] 04/13/2021 12/26/2021 Vaginal yeast infection [B37.31] 04/15/2021 12/26/2021 History of labor [Z87.51] 04/23/2021 Antepartum anemia complicating in thi*09/15/2021 contractions [O47.00] 10/06/2021 12/26/2021 GUIDO (generalized anxiety disorder) [F41.1] 11/02/2022 Herpes simplex virus (HSV) infection [B00.9] History of depression [Z87.59, Z86.5* Anxiety and depression [F41.9, F32.A] 09/08/2024 contractions (HCC) [O47.00] 01/18/2025 31 weeks gestation of (HCC) [Z3A.31] 02/18/2025 03/05/2025 Heartburn during in third trimester (*02/22/2025 Supervision of other high risk pregnancies, thi*03/05/2025 Encounter Status:Closed by JESSY SEGURA on 03/20/25 [facility] OB Triage Physician Noteon 0 03-17-2025 OB Triage Physician Note [facility] Medical Records Department [address] [place] [address] OB Triage Physician Note 03/17/252035 MR#: [id number] Acct: [id number] Name: LADANMARZENA Rep #: [id number] : 1990 34 From: Miriam Ramsey MD PCP: Care Physician,No Primary Status:REG CLI Y Location: [id number] HPI - General General Date of Service: 03/17/25 HPI Narrative MARZENA PICKERING, is a 34 F @ 34.6 weeks who presents c/o contractions. reports has been not feeling great- no fevers - but is not drinking much water. denies VB, LOF. PFSH PFS Medical History (Updated 03/17/25 @ 20:[address] Miriam Ramsey MD) Genital herpes affecting Home Medications ???Medication ???Instructions ???Recorded ???Last Taken ???Type 1 tab PO/SL DAILY Check with 12/2710/07/21 07:00 History primary doctor sertraline 100 mg tablet (Zoloft) 100 mg PO DAILY Check with primar y 12/27/20 10/07/21 07:00 History doctor acyclovir 400 mg tablet 400 mg PO TID Check with primary 0 11/07/21 11/07/21 History doctor ferrous sulfate 325 mg (65 mg 325 mg PO QDAY 03/17/25 Unknown Hi story iron) tablet (Feosol) omeprazole 20 mg capsule,delayed 20 mg PO DAILY 03/17/25 Unknown Hi story release Allergy/AdvReac Type Severity Reaction Status Date / Time tree nut Allergy Hives Verified 11/16/21 22:53 Family History Sister Family history of defect Surgical History (Updated 11/16/21 @ 23:40 by Miranda Gutierrez) History of surgery Social History (Updated 12/27/20 @ 17:58 by Yulia Benavidez) adopted: Yes Smoking Status: Never smoker History Elective abortions Hx Para 1 Spontaneous abortions Hx # Term Pregnancies Ectopic pregnancies Hx # Pregnancies Multiple births # of living children Physical Exam Narrative VE: Closed/thick/-3 Const alert and oriented x3 General Appearance: cooperative HEENT normocephalic GI GI Narrative: Gravid, non tender to palpation. OB / External Speculum: external exam normal Extremity normal to inspection Skin no rashes or lesions noted Neuro oriented x3 and CN's II-XII intact bilaterally Psych Appearance: grossly normal Assessment Plan (1) contractions: (2) 34 weeks gestation of : PLAN: Plan @ 34.6 weeks- c/o contractions 1) NST today 2) vaginal exam - no signs of labor 3) PO hydration reviewed 4) plan for dc home if NSt reactive 03/17/25 2042 D> Date Miriam Ramsey MD Cosigner Signature (if applicable): Date CC: Dr Miriam Ramsey MD; No Primary Care Physician Signed Normal [facility] Examination level ultrasound on 03-16-2025 [facility] Radiology Study observation (narrative) [facility] CBC W Auto Differential pane l (Bld)on 02-22-2025 Basophils (Bld) [#/Vol] 10*3/uL Normal <0.11 [facility] Comment on above: Order Comment: Speci men Type: BLOOD SPECIMENOrdering Facility: [facility] Address: [address] [place] [address] Performed By: #### 5 7021-8 ####[facility] [id number] [place] [address] [place] Basophils/100 WBC (Bld) 0.2 % Normal [facility] Comment on above: Order Comment: Speci men Type: BLOOD SPECIMENOrdering Facility: [facility] Address: [address] [place] [address] Performed By: #### 5 7021-8 ####[facility] [id number] [place] [address] [place] Differential cell count method Nom (Bld) Auto Normal [facility] Comment on above: Order Comment: Speci men Type: BLOOD SPECIMENOrdering Facility: [facility] Address: [address] [place] [address] Performed By: #### 5 7021-8 ####[facility] [id number] [place] [address] [place] Eosinophils (Bld) [#/Vol] 0.27 10*3/uL Normal <0.46 [facility] Comment on above: Order Comment: Speci men Type: BLOOD SPECIMENOrdering Facility: [facility] Address: [address] [place] [address] Performed By: #### 5 7021-8 ####[facility] [id number] [place] [address] [place] Eosinophils/100 WBC (Bld) 3.3 % Normal [facility] Comment on above: Order Comment: Speci men Type: BLOOD SPECIMENOrdering Facility: [facility] Address: [address] [place] [address] Performed By: #### 5 7021-8 ####[facility] [id number] [place] [address] [place] Erythrocyte distribution width (RBC) [Ratio] 13.2 % Normal 11.5-15.0 [facility] Comment on above: Order Comment: Speci men Type: BLOOD SPECIMENOrdering Facility: [facility] Address: [address] [place] [address] Performed By: #### 5 7021-8 ####[facility]NCNGHIAA [id number] [place] [address] [place] Hematocrit (Bld) [Volume fraction] 30.8 % Low 36.0-46.0 [facility] Comment on above: Order Comment: Speci men Type: BLOOD SPECIMENOrdering Facility: [facility] Address: [address] [place] [address] Performed By: #### 5 7021-8 ####[facility]ITAL[facility]CL[facility] [id number] [place] [address] [place] Hemoglobin (Bld) [Mass/Vol] 10.5 g/dL Low 11.5-15.5 [facility] Comment on above: Order Comment: Speci men Type: BLOOD SPECIMENOrdering Facility: [facility] Address: [address] [place] [address] Performed By: #### 5 7021-8 ####[facility] [id number] [place] [address] [place] Immature granulocytes (Bld) [#/Vol] 0.04 10*3/uL Normal <0.10 [facility] Comment on above: Order Comment: Speci men Type: BLOOD SPECIMENOrdering Facility: [facility] Address: [address] [place] [address] Performed By: #### 5 7021-8 ####[facility] SYSTEML[facility] [id number] [place] [address] [place] Immature granulocytes/100 WBC (Bld) 0.5 % Normal [facility] Comment on above: Order Comment: Speci men Type: BLOOD SPECIMENOrdering Facility: [facility] Address: [address] [place] [address] Performed By: #### 5 7021-8 ####[facility] [id number] [place] [address] [place] Lymphocytes (Bld) [#/Vol] 1.81 10*3/uL Normal 1.00-4.00 [facility] Comment on above: Order Comment: Speci men Type: BLOOD SPECIMENOrdering Facility: [facility] Address: [address] [place] [address] Performed By: #### 5 7021-8 ####[facility] [id number] [place] [address] [place] Lymphocytes/100 WBC (Bld) 22.2 % Normal [facility] Comment on above: Order Comment: Speci men Type: BLOOD SPECIMENOrdering Facility: [facility] Address: [address] [place] [address] Performed By: #### 5 7021-8 ####[facility] [id number] [place] [address] [place] MCH (RBC) [Entitic mass] 29.7 pg Normal 26.0-34.0 [facility] Comment on above: Order Comment: Speci men Type: BLOOD SPECIMENOrdering Facility: [facility] Address: [address] [place] [address] Performed By: #### 5 7021-8 ####[facility] [id number] [place] [address] [place] MCHC (RBC) [Mass/Vol] 34.1 g/dL Normal 30.5-36.0 [facility] Comment on above: Order Comment: Speci men Type: BLOOD SPECIMENOrdering Facility: [facility] Address: [address] [place] [address] Performed By: #### 5 7021-8 ####[facility] [id number] [place] [address] [place] MCV (RBC) [Entitic vol] 87.3 fL Normal 80.0-100.0 [facility] Comment on above: Order Comment: Speci men Type: BLOOD SPECIMENOrdering Facility: [facility] Address: [address] [place] [address] Performed By: #### 5 7021-8 ####[facility] [id number] [place] [address] [place] Monocytes (Bld) [#/Vol] 0.53 10*3/uL Normal <0.87 [facility] Comment on above: Order Comment: Speci men Type: BLOOD SPECIMENOrdering Facility: [facility] Address: [address] [place] [address] Performed By: #### 5 7021-8 ####[facility] [id number] [place] [address] [place] Monocytes/100 WBC (Bld) 6.5 % Normal [facility] Comment on above: Order Comment: Speci men Type: BLOOD SPECIMENOrdering Facility: [facility] Address: [address] [place] [address] Performed By: #### 5 7021-8 ####[facility] SYSTEMLIA [id number] [place] [address] [place] Neutrophils (Bld) [#/Vol] 5.49 10*3/uL Normal 1.45-7.50 [facility] Comment on above: Order Comment: Speci men Type: BLOOD SPECIMENOrdering Facility: [facility] Address: [address] [place] [address] Performed By: #### 5 7021-8 ####[facility] SYSTEML[facility] [id number] [place] [address] [place] Neutrophils/100 WBC (Bld) 67.3 % Normal [facility] Comment on above: Order Comment: Speci men Type: BLOOD SPECIMENOrdering Facility: [facility] Address: [address] [place] [address] Performed By: #### 5 7021-8 ####[facility] [id number] [place] [address] [place] Nucleated RBC (Bld) [#/Vol] 10*3/uL Normal <0.01 [facility] Comment on above: Order Comment: Speci men Type: BLOOD SPECIMENOrdering Facility: [facility] Address: [address] [place] [address] Performed By: #### 5 7021-8 ####[facility]ITALNCLIA [id number] [place] [address] [place] Nucleated RBC/100 WBC (Bld) [Ratio] 0.0 /100 WBC Normal [facility] Comment on above: Order Comment: Speci men Type: BLOOD SPECIMENOrdering Facility: [facility] Address: [address] [place] [address] Performed By: #### 5 7021-8 ####[facility]ITALWNCLIA [id number] [place] [address] [place] Platelet mean volume (Bld) [Entitic vol] 10.6 fL Normal 9.0-12.7 [facility] Comment on above: Order Comment: Speci men Type: BLOOD SPECIMENOrdering Facility: [facility] Address: [address] [place] [address] Performed By: #### 5 7021-8 ####[facility] KENYATONNYA [id number] [place] [address] [place] Platelets (Bld) [#/Vol] 267 10*3/uL Normal 150-400 [facility] Comment on above: Order Comment: Speci men Type: BLOOD SPECIMENOrdering Facility: [facility] Address: [address] [place] [address] Performed By: #### 5 7021-8 ####[facility] HOSPITALYINGHIAA [id number] [place] [address] [place] RBC (Bld) [#/Vol] 3.53 10*6/uL Low 3.90-5.20 [facility] Comment on above: Order Comment: Speci men Type: BLOOD SPECIMENOrdering Facility: [facility] Address: [address] [place] [address] Performed By: #### 5 7021-8 ####[facility] HOSPITALYILIA [id number] [place] [address] [place] WBC (Bld) [#/Vol] 8.16 10*3/uL Normal 3.70-11.00 [facility] Comment on above: Order Comment: Speci men Type: BLOOD SPECIMENOrdering Facility: [facility] Address: [address] [place] [address] Performed By: #### 5 7021-8 ####[facility]ITALNCLIA [id number] [place] [address] [place] Ferritin SerPl-mCncon 2024 Ferritin [Mass/Vol] 11.1 ng/mL Low 14.7-205.1 [facility] Comment on above: Order Comment: Speci men Type: BLOOD SPECIMENOrdering Facility: [facility] Address: [address] [place] [address] Performed By: #### 5 0190-8, 2275- ####[facility] LABCLIA [id number] [place] [address] [place] Iron and Iron binding capaci ty panelon 02-22-2025 Iron [Mass/Vol] 43 ug/dL Normal 41-186 [facility] Comment on above: Order Comment: Speci men Type: BLOOD SPECIMENOrdering Facility: [facility] Address: [address] [place] [address] Performed By: #### 5 0190-8, 2275-10 ####[facility] LABCLIA [id number] [place] [address] [place] Iron binding capacity [Mass/Vol] 482 ug/dL High 232-386 [facility] Comment on above: Order Comment: Speci men Type: BLOOD SPECIMENOrdering Facility: [facility] Address: [address] [place] [address] Performed By: #### 5 0190-8, 2275-10 ####[facility] LABCLIA [id number] [place] [address] [place] Iron/TIBC [Molar ratio] 8.9 % Low 15.0-57.0 [facility] Comment on above: Order Comment: Speci men Type: BLOOD SPECIMENOrdering Facility: [facility] Address: [address] [place] [address] Performed By: #### 5 0190-8, 2275- ####[facility] LABCLIA [id number] [place] [id number] [place] BACTERIAL VAGINOSIS NAATon 0 02-18-2025 Lactobacillus crispatus+gasseri+je nsenii + Gardnerella vaginalis + Atopobium vaginae rRNA NIGHAT+probe Ql (Vag fld) Not detected Normal Not detected [facility] Comment on above: Order Comment: Speci men Type: SWAB [facility] Address: [address] [place] [address] Performed By: #### B VAMP #### [facility] CLIA [id number] [address] [place] [address] C. trachomatis+N. gonorrhoea e DNA NIGHAT+probe Ql (Unsp spec)on 02-18-2025 C. trachomatis rRNA NIGHAT+probe Ql (Unsp spec) Not detected Normal Not detected [facility] Comment on above: Order Comment: Speci men Type: SWAB [facility] Address: [address] [place] [address] Performed By: #### 3 6902-5, TRVAMP #### [facility] CLIA [id number] [address] N. gonorrhoeae rRNA NIGHAT+probe Ql (Unsp spec) Not detected Normal Not detected [facility] Comment on above: Order Comment: Speci men Type: SWAB [facility] Address: [address] [place] [address] Performed By: #### 3 6902-5, TRVAMP #### [facility] CLIA [id number] [address] ED Triage Noteon 02-18-2025 ED Triage Note HNO ID: [id number] Author: RUBIA TILLMAN APRN.CNP Service: Emergency Medicine Author Type: Nurse Practitioner Type: ED Triage Notes Filed: 02/18/2025 20:46 Note Text: ED TRIAGE PROVIDER NOTE Patient Name: Marzena Pickering Service Date: 02/18/25 BRIEF HPI: This is a 34 year old female who presents to the ED with: 32 weeks with irregular contractions that began at 4pm today. 2 previous children were delivered at 37 weeks. She denies vaginal bleeding or LOF. BRIEF EXAM: Alert and oriented, answering all questions appropriately. INITIAL WORKUP AND DECISION MAKING: I spoke with Dr. Taylor, who accepted the patient to OB triage for further evaluation and management. She was taken to OB triage in stable condition via wheelchair by ED staff. Orders Placed This Encounter No orders of the defined types were placed in this encounter. SIGNATURE: Rubia Tillman APRN.MOLD CARRIER Normal [facility] TRICHOMONAS VAGINALIS NAATon 02-18-2025 T. vaginalis DNA NIGHAT+probe Ql (Unsp spec) Not detected Normal Not detected [facility] Comment on above: Order Comment: Speci men Type: SWAB [facility] Address: [address] [place] [address] Performed By: #### 3 6902-5, TRVAMP #### [facility] CLIA [id number] 1 [place] [address] [place] CBC W Auto Differential pane l (Bld)on 01-25-2025 Basophils (Bld) [#/Vol] 0.03 10*3/uL Normal <0.11 [facility] Comment on above: Order Comment: Speci men Type: BLOOD SPECIMENOrdering Facility: [facility] Address: [address] [place] [address] Performed By: #### 5 7021-8 ####[facility] [id number] [place] [address] [place] Basophils/100 WBC (Bld) 0.3 % Normal [facility] Comment on above: Order Comment: Speci men Type: BLOOD SPECIMENOrdering Facility: [facility] Address: [address] [place] [address] Performed By: #### 5 7021-8 ####[facility] [id number] [place] [address] [place] Differential cell count method Nom (Bld) Auto Normal [facility] Comment on above: Order Comment: Speci men Type: BLOOD SPECIMENOrdering Facility: [facility] Address: [address] [place] [address] Performed By: #### 5 7021-8 ####[facility]PITALYIA [id number] [place] [address] [place] Eosinophils (Bld) [#/Vol] 0.31 10*3/uL Normal <0.46 [facility] Comment on above: Order Comment: Speci men Type: BLOOD SPECIMENOrdering Facility: [facility] Address: [address] [place] [address] Performed By: #### 5 7021-8 ####[facility] [id number] [place] [address] [place] Eosinophils/100 WBC (Bld) 3.1 % Normal [facility] Comment on above: Order Comment: Speci men Type: BLOOD SPECIMENOrdering Facility: [facility] Address: [address] [place] [address] Performed By: #### 5 7021-8 ####[facility] [id number] [place] [address] [place] Erythrocyte distribution width (RBC) [Ratio] 13.3 % Normal 11.5-15.0 [facility] Comment on above: Order Comment: Speci men Type: BLOOD SPECIMENOrdering Facility: [facility] Address: [address] [place] [address] Performed By: #### 5 7021-8 ####[facility] SYSTEMLIA [id number] [place] [address] [place] Hematocrit (Bld) [Volume fraction] 29.6 % Low 36.0-46.0 [facility] Comment on above: Order Comment: Speci men Type: BLOOD SPECIMENOrdering Facility: [facility] Address: [address] [place] [address] Performed By: #### 5 7021-8 ####[facility] SYSTEMLIA [id number] [place] [address] [place] Hemoglobin (Bld) [Mass/Vol] 10.1 g/dL Low 11.5-15.5 [facility] Comment on above: Order Comment: Speci men Type: BLOOD SPECIMENOrdering Facility: [facility] Address: [address] [place] [address] Performed By: #### 5 7021-8 ####[facility] [id number] [place] [address] [place] Immature granulocytes (Bld) [#/Vol] 0.07 10*3/uL Normal <0.10 [facility] Comment on above: Order Comment: Speci men Type: BLOOD SPECIMENOrdering Facility: [facility] Address: [address] [place] [address] Performed By: #### 5 7021-8 ####[facility] [id number] [place] [address] [place] Immature granulocytes/100 WBC (Bld) 0.7 % Normal [facility] Comment on above: Order Comment: Speci men Type: BLOOD SPECIMENOrdering Facility: [facility] Address: [address] [place] [address] Performed By: #### 5 7021-8 ####[facility] [id number] [place] [address] [place] Lymphocytes (Bld) [#/Vol] 1.94 10*3/uL Normal 1.00-4.00 [facility] Comment on above: Order Comment: Speci men Type: BLOOD SPECIMENOrdering Facility: [facility] Address: [address] [place] [address] Performed By: #### 5 7021-8 ####[facility]ITALNCLI [id number] [place] [address] [place] Lymphocytes/100 WBC (Bld) 19.2 % Normal [facility] Comment on above: Order Comment: Speci men Type: BLOOD SPECIMENOrdering Facility: [facility] Address: [address] [place] [address] Performed By: #### 5 7021-8 ####[facility]ITALNCBL[facility] [id number] [place] [address] [place] [facility] MCH (RBC) [Entitic mass] 30.0 pg Normal 26.0-34.0 [facility] Comment on above: Order Comment: Speci men Type: BLOOD SPECIMENOrdering Facility: [facility] Address: [address] [place] [address] Performed By: #### 5 7021-8 ####[facility] [id number] [address] [place] MCHC (RBC) [Mass/Vol] 34.1 g/dL Normal 30.5-36.0 [facility] Comment on above: Order Comment: Speci men Type: BLOOD SPECIMENOrdering Facility: [facility] Address: [address] [place] [address] Performed By: #### 5 7021-8 ####[facility] [id number] [address] [place] MCV (RBC) [Entitic vol] 87.8 fL Normal 80.0-100.0 [facility] Comment on above: Order Comment: Speci men Type: BLOOD SPECIMENOrdering Facility: [facility] Address: [address] [place] [address] Performed By: #### 5 7021-8 ####[facility] [id number] [place] [address] [place] Monocytes (Bld) [#/Vol] 0.60 10*3/uL Normal <0.87 [facility] Comment on above: Order Comment: Speci men Type: BLOOD SPECIMENOrdering Facility: [facility] Address: [address] [place] [address] Performed By: #### 5 7021-8 ####[facility] KENYAUMALIA [id number] [place] [address] [place] Monocytes/100 WBC (Bld) 5.9 % Normal [facility] Comment on above: Order Comment: Speci men Type: BLOOD SPECIMENOrdering Facility: [facility] Address: [address] [place] [address] Performed By: #### 5 7021-8 ####[facility]ITALNCLIA [id number] [place] [address] [place] Neutrophils (Bld) [#/Vol] 7.17 10*3/uL Normal 1.45-7.50 [facility] Comment on above: Order Comment: Speci men Type: BLOOD SPECIMENOrdering Facility: [facility] Address: [address] [place] [address] Performed By: #### 5 7021-8 ####[facility] SYSTEMLIA [id number] [place] [address] [place] Neutrophils/100 WBC (Bld) 70.8 % Normal [facility] Comment on above: Order Comment: Speci men Type: BLOOD SPECIMENOrdering Facility: [facility] Address: [address] [place] [address] Performed By: #### 5 7021-8 ####[facility]PITALNCLIA [id number] [place] [address] [place] Nucleated RBC (Bld) [#/Vol] 10*3/uL Normal <0.01 [facility] Comment on above: Order Comment: Speci men Type: BLOOD SPECIMENOrdering Facility: [facility] Address: [address] [place] [address] Performed By: #### 5 7021-8 ####[facility]ITALNCLIA [id number] [place] [address] [place] Nucleated RBC/100 WBC (Bld) [Ratio] 0.0 /100 WBC Normal [facility] Comment on above: Order Comment: Speci men Type: BLOOD SPECIMENOrdering Facility: [facility] Address: [address] [place] [address] Performed By: #### 5 7021-8 ####[facility] KENYASULTANJAIDEN [id number] [place] [address] [place] Platelet mean volume (Bld) [Entitic vol] 10.3 fL Normal 9.0-12.7 [facility] Comment on above: Order Comment: Speci men Type: BLOOD SPECIMENOrdering Facility: [facility] Address: [address] [place] [address] Performed By: #### 5 7021-8 ####[facility] HOSPITALYIFaustino [id number] [place] [address] [place] Platelets (Bld) [#/Vol] 266 10*3/uL Normal 150-400 [facility] Comment on above: Order Comment: Speci men Type: BLOOD SPECIMENOrdering Facility: [facility] Address: [address] [place] [address] Performed By: #### 5 7021-8 ####[facility] HOSPITALYINGHIAA [id number] [place] [address] [place] RBC (Bld) [#/Vol] 3.37 10*6/uL Low 3.90-5.20 [facility] Comment on above: Order Comment: Speci men Type: BLOOD SPECIMENOrdering Facility: [facility] Address: [address] [place] [address] Performed By: #### 5 7021-8 ####[facility]ITALNCLIA [id number] [place] [address] [place] WBC (Bld) [#/Vol] 10.12 10*3/uL Normal 3.70-11.00 [facility] Comment on above: Order Comment: Speci men Type: BLOOD SPECIMENOrdering Facility: [facility] Address: [address] [place] [address] Performed By: #### 5 7021-8 ####[facility] [id number] [place] [address] [place] Ferritin SerPl-mCncon 2024 Ferritin [Mass/Vol] 14.9 ng/mL Normal 14.7-205.1 [facility] Comment on above: Order Comment: Speci men Type: BLOOD SPECIMENOrdering Facility: [facility] Address: [address] [place] [address] Performed By: #### 5 0190-8, 2276-4 ####[facility] LABCLIA [id number] [place] [address] [place] GESTATIONAL GLUCOSE SCREEN, 1-HOUR, 50 GRAM, NON-FASTINGon 01-25-2025 Glucose [Mass/Vol] 105 mg/dL Normal 74-134 [facility] Comment on above: Order Comment: Speci butch Type: BLOOD SPECIMENOrdering Facility: [facility] Address: [address] [place] [address] Result Comment: [facility] Congress of Obstetricians and Gynecologists (Anjum/Chanel) guidelines state a gestational diabetes mellitus positive screen is made, in women not previously diagnosed with overt diabetes, when the 1 hr plasma glucose level is equal to or above 140 mg/dL. The [facility] and [facility] recommends a 135 mg/dL cutoff. Performed By: #### G LTGST ####[facility]ITALNCLIA [id number] [place] [address] [place] Iron and Iron binding capaci ty panelon 01-25-2025 Iron [Mass/Vol] 36 ug/dL Low 41-186 [facility] Comment on above: Order Comment: Speci men Type: BLOOD SPECIMENOrdering Facility: [facility] Address: [address] [place] [address] Performed By: #### 5 0190-8, 6-4 ####[facility] LABIA [id number] [place] [address] [place] Iron binding capacity [Mass/Vol] 448 ug/dL High 232-386 [facility] Comment on above: Order Comment: Speci men Type: BLOOD SPECIMENOrdering Facility: [facility] Address: [address] [place] [address] Performed By: #### 5 0190-8, 4 ####[facility] LABIA [id number] [place] [address] [place] Iron/TIBC [Molar ratio] 8.0 % Low 15.0-57.0 [facility] Comment on above: Order Comment: Speci men Type: BLOOD SPECIMENOrdering Facility: [facility] Address: [address] [place] [address] Performed By: #### 5 0190-8, 4 ####[facility] LABIA [id number] [place] [address] [place] Reagin and Treponema pallidu m IgG and IgM [Interp]on 01-25-2025 T. pallidum IgG+IgM IA Ql (S) Non-Reactive Normal Nonreactive [facility] Comment on above: Order Comment: Speci men Type: BLOOD SPECIMENOrdering Facility: [facility] Address: [address] [place] [address] Performed By: #### 7 3752-8 ####[facility] LABIA [id number] [place] [address] [place] Reagin+T pallidum IgG+IgM Se rPl-Impon 01-25-2025 Reagin and Treponema pallidum IgG and IgM [Interp] Cannot exclude recent Treponemal infection if specimen collected within 7-10 days after appearance of suspect lesions or 2-3 weeks after an exposure. Clinical correlation is required. Normal [facility] Comment on above: Order Comment: Speci men Type: BLOOD SPECIMENOrdering Facility: [facility] Address: [address] [place] [address] Performed By: #### 7 3752-8 ####[facility] LABCLIA [id number] [address] [id number] 01-18-2025 [id number] HNO ID: [id number] Author: NAVYA OCHOA RN Service: ? Author Type: Registered Nurse Type: [id number] Filed: 01/18/2025 08:55 Note Text: REPORT THE FOLLOWING: IF AT ANY POINT IN THE REPORT THE FOLLOWING SIGNS OR SYMPTOMS TO YOUR PROVIDER: Vaginal bleeding A sudden gush of fluid from your vagina with continued leaking A noticeable decrease in your baby's movements Severe headache that does not go away with rest Blurry vision or spots in front of your eyes Swelling in your hands and/or face Pain on urination A foul smelling vaginal discharge Inability to keep food/fluids down Persistent nausea and/or vomiting Chills and/or fever greater than 101 degrees fahrenheit Pain when you press against your abdomen IF YOU ARE DUE WITHIN THE NEXT THREE WEEKS, CONTACT YOUR PROVIDER WITH ANY OF THE FOLLOWING SIGNS OF TERM LABOR: If contractions are every 5-10 minutes for one hour If you think you have broken your water IF YOU ARE DUE IN MORE THAN THREE WEEKS, CONTACT YOUR PROVIDER WITH ANY OF THE FOLLOWING SIGNS OF LABOR: If you have six or more contractions in an hour that do not subside after resting and drinking water If you see pinkish or bloody vaginal discharge If you have increased rios or clear vaginal discharge If you have bright red vaginal bleeding If you think you broke your water [facility] HISTORY PHYSICALon HISTORY PHYSICAL HNO ID: [id number] Author: DENISE REICH MD Service: Obstetrics Author Type: Physician Type: H&P Filed: 01/18/2025 08:59 Note Text: OBSTETRICS TRIAGE PROGRESS NOTE SERVICE DATE: January 18, 2025 SERVICE TIME: 8:53 AM Subjective Patient's stated reason for arrival: fall while going up stairs-decreased movment CHIEF COMPLAINT: fall, abdominal pain HISTORY OF THE PRESENT ILLNESS: The patient is a 34 year old female, , who is at 26w4d with an NIKKI of 04/22/2025, by Last Menstrual Period dating method. Patient is here c/o abdominal pain and contractions after falling while carrying daughter early yesterday morning. Decreased movement. Denies vaginal bleeding., Denies leaking of fluid. . REVIEW OF SYSTEMS: The remainder of the review of systems is negative. Objective LAST VITALS: Pulse BP Resp O2 Sat Temp Pain 63 117/76 19 98 % 36.6 ?C (97.8 ?F) 3 HT/WT/BMI: Height Weight BMI 162.6 cm (5' 4) 78 kg (171 lb 15.3 oz) 29.52 SENSITIVE EXAMINATION CONSENT: Participation of a fellow, resident, medical student, or advanced practice provider student in performing the sensitive examination was discussed with the patient or authorized sales representative business courses. The patient or authorized sales representative business courses has agreed to proceed with the sensitive examination. PHYSICAL EXAM: General: comfortable Abdomen: soft, nontender, no masses Extremities: no edema Cervical Exam: closed/long CERVICAL EXAM: Dilation: Closed (01/18/25 0845 : Navya Ochoa RN) cm Station: -1 (01/18/25155 : Lexi Desai RN) Effacement: 50 (01/18/25155 : Lexi Desai, RON) % Presentation: MONITORING/ASSESSMENT: NST with discrete interpretation : MONITORING/ASSESSMENT: Baseline Rate: 135 bpm (01/18/25699 : Lexi Desai, RON) Variability: Moderate (6-25 bpm) (01/18/25699 : Lexi Desai, RN) Accelerations: Present (01/18/25699 : Lexi Desai, RON) Decelerations: None (01/18/25699 : Lexi Desai, RON) Contractions: Regular (01/18/25699 : Lexi Desai, RN) Contraction Frequency (min): 3-4 (01/18/25699 : Lexi Desai RN) NST INTERPRETATION: FHR Category: 1 (01/18/25699 : Lexi Desai, RN) Ultrasound: n/a LABS Diagnostic tests reviewed for today's visit: No new labs 34 year old EGA:26w4d. Assessment AND Plan contractions (HCC) Discharge home with precautions SIGNATURE: Denise Reich MD PATIENT NAME: Marzena Pickering DATE: January 18, 2025 TIME: 8:53 AM [facility] ED NOTEon 01-17-2025 ED NOTE HNO ID: [id number] Author: ANNE-MARIE CARRASCO RN Service: ? Author Type: Registered Nurse Type: ED Notes Filed: 01/17/2025 23:04 Note Text: PT REPORT WAS GIVEN TO JOSE ANTONIO VELASQUEZ FROM OB. PT TAKEN TO OB VIA W/C BY VIVIEN [facility] Examination level ultrasound on 10-07-2024 Indication First trimester anatomic survey Impression REMOTE READ The patient is referred for a first trimester anatomy scan including nuchal translucency measurement as clinically indicated. - Single, live, intrauterine . - Arial rump length measurement is consistent with the established gestational age. - A qualitative screen of the nuchal translucency and other anatomic structures was unremarkable on a complete first trimester anatomic assessment. - Not all structural malformations can be detected by ultrasound examination. Recommendations - An anatomic survey at 18-20 weeks is recommended given no identified risk factors. Maternal Assessment Height 165 cm Height (ft) 5 ft Height (in) 5 in Physical Exam Initial weight (lb) 137 lb Initial BMI 22.80 kg/m Maternal assessment other: 3 Para 2 Method Transabdominal ultrasound examination Boykin . Number of fetuses: 1 Dating LMP on: 07/16/2024 GA by LMP 11 w + 5 d NIKKI by LMP: 04/22/2025 GA by prior assessment 11 w + 5 d NIKKI by prior assessment: 04/22/2025 Ultrasound examination on: 10/06/2024 GA by U/S based upon: CRL GA by U/S 11 w + 4 d NIKKI by U/S: 04/23/2025 Assigned: based on stated NIKKI, selected on 10/06/2024 Assigned GA 11 w + 5 d Assigned NIKKI: 04/22/2025 General Evaluation Cardiac activity present Placenta: posterior Cord vessels: 3 vessel cord Amniotic fluid: normal amount Biometry Standard FHR 164 bpm CRL 47.9 mm 11w 4d 19% [facility]lock First Trimester Anatomy Calvarium: normal Falx cerebri: normal Choroid plexus: normal Profile: normal Nasal bone: normal Retronasal triangle: normal Maxilla: normal Mandible: normal Nuchal translucency: suboptimal Situs: normal Cardiac position: normal Cardiac axis: normal 4-chamber view: suboptimal 4-chamber view with color: suboptimal 1-hvzhrc-zebfkhw view: suboptimal Abdominal cord insertion: normal Stomach: normal Kidneys: suboptimal Bladder: normal Color doppler of perivesical umbilical arteries: normal Vertebral alignment: normal Arms: normal Hands: normal Legs: normal Feet: normal Maternal Structures Uterus / Cervix Uterus: Visualized Uterus length 129 mm Uterus width 83 mm Uterus height 69 mm Uterus Vol 384.3 cm Ovaries / Tubes / Adnexa Rt ovary: Visualized Rt ovary D1 31 mm Rt ovary D2 21 mm Rt ovary D3 21 mm Rt ovary Vol 7.0 cm Lt ovary: Not visualized Performed By: Anay Pineda RDMS, RVT Read By: Agueda Hernandez MD MATERNAL MEDICINE [facility] Examination level ultrasound on 10-06-2024 Radiology Study observation (narrative) [facility] [id number] PLUSon 10-06-2024 Cell-free DNA./Cell-free DNA.total Dosage of chromosome-specific cfDNA (cfDNA) [Molar fraction] 18% Normal [facility] Comment on above: Order Comment: Speci men Type: BLOOD SPECIMENOrdering Facility: [facility] Address: [address] [place] [address] Performed By: #### M AT21 ####[employer] LABCLIA [id number] [place] [address] Chr 13+18+21+X+Y aneuploidy Dosage of chromosome-specific cfDNA Ql (cfDNA) Negative Normal [facility] Comment on above: Order Comment: Speci men Type: BLOOD SPECIMENOrdering Facility: [facility] Address: [address] [place] [address] Performed By: #### M AT21 ####[employer] LABCLIA [id number] [place] [address] Chr 21 trisomy Dosage of chromosome-specific cfDNA Ql (cfDNA) Negative Normal [facility] Comment on above: Order Comment: Speci men Type: BLOOD SPECIMENOrdering Facility: [facility] Address: [address] [place] [address] Performed By: #### M AT21 ####[facility] LABCLIA [id number] [place] [address] Chr X and Y aneuploidy risk Sequencing Ql (cfDNA) [Interp] Not detected Normal [facility] Comment on above: Order Comment: Speci men Type: BLOOD SPECIMENOrdering Facility: [facility] Address: [address] [place] [address] Result Comment: Not Detected Not Detected Performed By: #### M AT21 ####[facility] LABCLIA [id number] [place] [address] Citation Espinoza (Reference lab test) Comment Normal [facility] Comment on above: Order Comment: Speci men Type: BLOOD SPECIMENOrdering Facility: [facility] Address: [address] [place] [address] Result Comment: 1. P yvette TIMMONS et al. Sera Med. 2012;14(3):296-305. 2. Sandra GRUBBS et al. Prenat Diag. 2013;33(6):591-597. 3. Shailesh C, et al. Clin Chem. 2015 Apr;61(4):608-616. 4. Alison TIMMONS et al. Sera Med. 2011;13(11):913-920. 5. ACOG/SMFM Practice Bulletin No. 226, Apr 2020. Performed By: #### M AT21 ####[facility] LABCLIA [id number] [place] [address] Gestational age Estimated from conception date Boykin Normal [facility] Comment on above: Order Comment: Speci men Type: BLOOD SPECIMENOrdering Facility: [facility] Address: [address] [place] [address] Performed By: #### M AT21 ####[facility] LABCLIA [id number] [place] [address] GESTATIONALAGE AGE > OR = 9W Yes Normal [facility] Comment on above: Order Comment: Speci men Type: BLOOD SPECIMENOrdering Facility: [facility] Address: [address] [place] [address] Performed By: #### M AT21 ####DonorSearchCLIA [id number] [place] [id number] Laboratory comment Espinoza (Report) Comment Normal [facility] Comment on above: Order Comment: Cally rae Type: BLOOD SPECIMENOrdering Facility: [facility] Address: [address] [place] [address] Result Comment: The MaterniT(R) 21 PLUS laboratory-developed test (LDT) analyzes circulating cell-free DNA from a maternal blood sample. This test is used for screening purposes and not diagnostic. Clinical correlation is recommended. Validation data on twin pregnancies is limited and the ability of this test to detect aneuploidy in higher multiple gestations has not yet been validated. Performed By: #### M AT21 ####SportsyIA [id number] [place] [id number] executive director global brand marketing name Nom (Provider) Comment Normal [facility] Comment on above: Order Comment: Cally rae Type: BLOOD SPECIMENOrdering Facility: [facility] Address: [address] [place] [address] Result Comment: This specimen showed an expected representation of chromosome 21, 18 and 13 material. Clinical correlation is suggested. Comment Kenneth Randall MD, PhD, Director, [employer]id[employer] Writer Performed By: #### M AT21 ####SportsyIA [id number] [place] [id number] LIMITATIONS OF THE TEST Comment Normal [facility] Comment on above: Order Comment: Cally rae Type: BLOOD SPECIMENOrdering Facility: [facility] Address: [address] [place] [address] Result Comment: Sb alexander the results of these tests are highly reliable, discordant results, including inaccurate sex prediction, may occur due to placental, maternal, or mosaicism or neoplasm; vanishing twin; prior maternal organ transplant; or other causes. These tests are screening tests and not diagnostic; they do not replace the accuracy and precision of diagnosis with CVS or amniocentesis. A patient with a positive test result should be referred for genetic counseling and offered invasive diagnosis for confirmation of test results.[5] The results of this testing, including the benefits and limitations, should be discussed with a qualified healthcare provider. management decisions, including termination of the , should not be based on the results of these tests alone. The healthcare provider is responsible for the use of this information in the management of their patient. Sex chromosomal aneuploidies are not reportable for known multiple gestations. A negative result does not ensure an unaffected nor does it exclude the possibility of other chromosomal abnormalities or defects which are not a part of these tests. An uninformative result may be reported, the causes of which may include, but are not limited to, insufficient sequencing coverage, noise or artifacts in the region, amplification or sequencing bias, or insufficient fraction. These tests are not intended to identify pregnancies at risk for neural tube defects or ventral wall defects. Testing for whole chromosome abnormalities (including sex chromosomes) and for subchromosomal abnormalities could lead to the potential discovery of both and maternal genomic abnormalities that could have major, minor, or no, clinical significance. Evaluating the significance of a positive or a non-reportable result may involve both invasive testing and additional studies on the mother. Such investigations may lead to a diagnosis of maternal chromosomal or subchromosomal abnormalities, which on occasion may be associated with benign or malignant maternal neoplasms. These tests may not accurately identify triploidy, balanced rearrangements, or the precise location of subchromosomal duplications or deletions; these may be detected by diagnosis with CVS or amniocentesis. The ability to report results may be impacted by maternal BMI, maternal weight, maternal systemic lupus erythematosus (SLE) and/or by certain pharmaceutical agents such as low molecular weight heparin (for example: Lovenox(R), Xaparin(R), Clexane(R) and Fragmin(R)). Performed By: #### M AT21 ####[employer] LABIA [id number] [place] [address] Monosomy X risk Dosage of chromosome-specific cfDNA Ql (Plasma cell-free+WBC DNA) [Interp] Not detected Normal [facility] Comment on above: Order Comment: Speci men Type: BLOOD SPECIMENOrdering Facility: [facility] Address: [address] [place] [address] Performed By: #### M AT21 ####[facility] LABCLIA [id number] [place] [address] NEGATIVE PREDICTIVE VALUE Note Normal [facility] Comment on above: Order Comment: Cally rae Type: BLOOD SPECIMENOrdering Facility: [facility] Address: [address] [place] [address] Result Comment: The Negative Predictive Value (NPV) for trisomy 21, 18, and 13 is greater than 99%. The NPV for SCA and ESS cannot be calculated as SCA and ESS are only reported when an abnormality is detected. Performed By: #### M AT21 ####[facility] LABFOOTBEAT [employer] HealthIA [id number] [place] [address] PERFORMANCE CHARACTERISTICS Note Normal [facility] Comment on above: Order Comment: Cally rae Type: BLOOD SPECIMENOrdering Facility: [facility] Address: [address] [place] [address] Result Comment: ! Sex ! Accuracy: 99.4% ! ! ! ! Region (associated syndrome) ! Est. Sens# ! Est. Spec ! ! ! ! Trisomy 21 (Down Syndrome) ! 99.1% ! 99.9% ! ! ! ! Trisomy 18 (Valencia Syndrome) ! >99.9% ! 99.6% ! ! ! ! Trisomy 13 (Patau Syndrome) ! 91.7% ! 99.7% ! ! ! ! Sex Chromosome Aneuploidies## ! 96.2% ! 99.7% ! ! ! * As reported in ISCA database nstd37 [https://www.ncbi.nlm.nih.gov/dbvar/studies/nstd37/ ] # Estimated Sensitivity. Sensitivity estimated across the observed size distribution of each syndrome [per ISCA database nstd37] and across the range of fractions observed in routine clinical NIPT. Actual sensitivity can also be influenced by other factors such as the size of the event, total sequence counts, amplification bias, or sequence bias. ## Boykin gestation only. Performed By: #### M AT21 ####SportsyIA [id number] [place] [address] POSITIVE PREDICTIVE VALUE N/A Normal [facility] Comment on above: Order Comment: Speci men Type: BLOOD SPECIMENOrdering Facility: [facility] Address: [address] [address] Performed By: #### M AT21 ####[facility] LABFOOTBEAT [facility] HealthIA [id number] [place] [address] Reference Lab Test Method Comment Normal [facility] Comment on above: Order Comment: Speci men Type: BLOOD SPECIMENOrdering Facility: [facility] Address: [address] [place], [place] [address] Result Comment: See Notes Circulating cell-free DNA was purified from the plasma component of maternal blood. The extracted DNA was then converted into a genomic DNA library for aneuploidy analysis of chromosomes 21, 18, and 13 via next generation sequencing.[1] Optional findings based on the test order include sex chromosome aneuploidy (SCA)[2], and enhanced sequencing series (ESS)[3], which will only be reported on as an additional finding when an abnormality is detected. SCA testing includes information on X and Y representation, while ESS testing includes deletions in selected regions (22q, 15q, 11q, 8q, 5p, 4p, 1p) and trisomy of chromosomes 16 and 22. Performed By: #### M AT21 ####[employer] [id number] [place] [address] Service comment (Unsp spec) [Interp] Comment Normal [facility] Comment on above: Order Comment: Speci men Type: BLOOD SPECIMENOrdering Facility: [facility] Address: [address] [place], [place] [address] Result Comment: See Notes [employer] is a subsidiary of [employer], using the brand [facility]. This test was developed and its performance characteristics determined by [facility]. It has not been cleared or approved by the Food and Drug Administration. This laboratory is certified under the Clinical Laboratory Improvement Amendments (CLIA) as qualified to perform high complexity clinical laboratory testing and accredited by the [employer] [place] [employer] (CAP). If there is future clinical need for adding MaterniT GENOME testing, this specimen will be available until term. [facility] samples will not be retained beyond 60 days. [facility] patients will have to send a new sample for re-sequencing ([facility] Test Code: 006355). Performed By: #### M AT21 ####[employer] LABFOOTBEAT & AVEX HealthIA [id number] [place] [address] Sex Dosage of chromosome-specific cfDNA Nom (cfDNA) Comment Normal [facility] Comment on above: Order Comment: Speci men Type: BLOOD SPECIMENOrdering Facility: [facility] Address: [address] [place] [address] Result Comment: Cons istent with Female Performed By: #### M AT21 ####[employer] LABCLIA [id number] [place] [address] Test performance information Espinoza (Unsp spec) Comment Normal [facility] Comment on above: Order Comment: Speci men Type: BLOOD SPECIMENOrdering Facility: [facility] Address: [address] [place] [address] Result Comment: The performance characteristics of the MaterniT(R) 21 PLUS laboratory-developed test (LDT) have been determined in a clinical validation study with women at increased risk for chromosomal aneuploidy.[1-4] Performed By: #### M AT21 ####[employer] LABCLIA [id number] [place] [address] Trisomy 13 risk Dosage of chromosome-specific cfDNA Ql (cfDNA) [Interp] Negative Normal [facility] Comment on above: Order Comment: Speci men Type: BLOOD SPECIMENOrdering Facility: [facility] Address: [address] [place] [address] Performed By: #### M AT21 ####[employer] LABCLIA [id number] [place] [address] Trisomy 18 risk Dosage of chromosome-specific cfDNA Ql (Plasma cell-free+WBC DNA) [Interp] Negative Normal [facility] Comment on above: Order Comment: Speci men Type: BLOOD SPECIMENOrdering Facility: [facility] Address: [address] [place] [address] Performed By: #### M AT21 ####[employer] LABCLIA [id number] [place] [address] CBC W Auto Differential pane l (Bld)on 10-05-2024 Basophils (Bld) [#/Vol] 0.04 10*3/uL Normal <0.11 [facility] Comment on above: Order Comment: Speci men Type: BLOOD SPECIMEN Ordering Facility: [facility] Address: [address] [place] [address] Performed By: #### 5 7021-8 #### [facility] CLIA [id number] [address] [place] [address] [place] Basophils/100 WBC (Bld) 0.5 % Normal [facility] Comment on above: Order Comment: Speci men Type: BLOOD SPECIMEN Ordering Facility: [facility] Address: [address] [place] [address] Performed By: #### 5 7021-8 #### [facility] CLIA [id number] [address] [place] [address] [place] Differential cell count method Nom (Bld) Auto Normal [facility] Comment on above: Order Comment: Speci men Type: BLOOD SPECIMEN Ordering Facility: [facility] Address: [address] [place] [address] Performed By: #### 5 7021-8 #### [facility] CLIA [id number] [address] [place] [address] [place] Eosinophils (Bld) [#/Vol] 0.34 10*3/uL Normal <0.46 [facility] Comment on above: Order Comment: Speci men Type: BLOOD SPECIMEN Ordering Facility: [facility] Address: [address] [place] [address] Performed By: #### 5 7021-8 #### [facility] CLIA [id number] [address] [place] [address] [place] Eosinophils/100 WBC (Bld) 4.1 % Normal [facility] Comment on above: Order Comment: Speci men Type: BLOOD SPECIMEN Ordering Facility: [facility] Address: [address] [place] [address] Performed By: #### 5 7021-8 #### [facility] CLIA [id number] [address] [place] [address] [place] Erythrocyte distribution width (RBC) [Ratio] 13.6 % Normal 11.5-15.0 [facility] Comment on above: Order Comment: Speci men Type: BLOOD SPECIMEN Ordering Facility: [facility] Address: [address] [place], [place] [address] [id number] Performed By: #### 5 7021-8 #### [facility] CLIA [id number] [address] [place] [address] [place] Hematocrit (Bld) [Volume fraction] 35.6 % Low 36.0-46.0 [facility] Comment on above: Order Comment: Speci men Type: BLOOD SPECIMEN Ordering Facility: [facility] Address: [address] [facility] [place] [address] Performed By: #### 5 7021-8 #### [facility] CLIA [id number] [address] [place] [address] [place] Hemoglobin (Bld) [Mass/Vol] 12.0 g/dL Normal 11.5-15.5 [facility] Comment on above: Order Comment: Speci men Type: BLOOD SPECIMEN Ordering Facility: [facility] Address: [facility] [place] [address] Performed By: #### 5 7021-8 #### [facility] CLIA [id number] [address] [place] [address] [place] Immature granulocytes (Bld) [#/Vol] 10*3/uL Normal <0.10 [facility] Comment on above: Order Comment: Speci men Type: BLOOD SPECIMEN Ordering Facility: [facility] Address: [address] [place] [address] Performed By: #### 5 7021-8 #### [facility] CLIA [id number] [address] [place] [address] [place] Immature granulocytes/100 WBC (Bld) 0.2 % Normal [facility] Comment on above: Order Comment: Speci men Type: BLOOD SPECIMEN Ordering Facility: [facility] Address: [facility] [place] [address] Performed By: #### 5 7021-8 #### [facility] CLIA [id number] [address] [place] [address] [place] Lymphocytes (Bld) [#/Vol] 2.38 10*3/uL Normal 1.00-4.00 [facility] Comment on above: Order Comment: Speci men Type: BLOOD SPECIMEN Ordering Facility: [facility] Address: [address] [place] [address] Performed By: #### 5 7021-8 #### [facility] CLIA [id number] [address] [place] [address] [place] Lymphocytes/100 WBC (Bld) 28.4 % Normal [facility] Comment on above: Order Comment: Speci men Type: BLOOD SPECIMEN Ordering Facility: [facility] Address: [address] [place] [address] Performed By: #### 5 7021-8 #### [facility] CLIA [id number] [address] [place] [address] [place] MCH (RBC) [Entitic mass] 29.3 pg Normal 26.0-34.0 [facility] Comment on above: Order Comment: Speci men Type: BLOOD SPECIMEN Ordering Facility: [facility] Address: [address] [place] [address] Performed By: #### 5 7021-8 #### [facility] CLIA [id number] [address] [place] [address] [place] MCHC (RBC) [Mass/Vol] 33.7 g/dL Normal 30.5-36.0 [facility] Comment on above: Order Comment: Speci men Type: BLOOD SPECIMEN Ordering Facility: [facility] Address: [address] [place] [address] Performed By: #### 5 7021-8 #### [facility] CLIA [id number] [address] [place] [address] [place] MCV (RBC) [Entitic vol] 86.8 fL Normal 80.0-100.0 [facility] Comment on above: Order Comment: Speci men Type: BLOOD SPECIMEN Ordering Facility: [facility] Address: [address] [place] [address] Performed By: #### 5 7021-8 #### [facility] CLIA [id number] [address] [place] [address] [place] Monocytes (Bld) [#/Vol] 0.52 10*3/uL Normal <0.87 [facility] Comment on above: Order Comment: Speci men Type: BLOOD SPECIMEN Ordering Facility: [facility] Address: [address] [place] [address] Performed By: #### 5 7021-8 #### [facility] CLIA [id number] [address] [place] [address] [place] Monocytes/100 WBC (Bld) 6.2 % Normal [facility] Comment on above: Order Comment: Speci men Type: BLOOD SPECIMEN Ordering Facility: [facility] Address: [address] [place] [address] Performed By: #### 5 7021-8 #### [facility] CLIA [id number] [address] [place] [address] [place] Neutrophils (Bld) [#/Vol] 5.09 10*3/uL Normal 1.45-7.50 [facility] Comment on above: Order Comment: Speci men Type: BLOOD SPECIMEN Ordering Facility: [facility] Address: [address] [place] [address] Performed By: #### 5 7021-8 #### [facility] CLIA [id number] [address] [place] [address] [place] Neutrophils/100 WBC (Bld) 60.6 % Normal [facility] Comment on above: Order Comment: Speci men Type: BLOOD SPECIMEN Ordering Facility: [facility] Address: [address] [place] [address] Performed By: #### 5 7021-8 #### [facility] CLIA [id number] [address] [place] [address] [place] Nucleated RBC (Bld) [#/Vol] 10*3/uL Normal <0.01 [facility] Comment on above: Order Comment: Speci men Type: BLOOD SPECIMEN Ordering Facility: [facility] Address: [address] [place] [address] Performed By: #### 5 7021-8 #### [facility] CLIA [id number] [address] [place], [place] [address] [place] Nucleated RBC/100 WBC (Bld) [Ratio] 0.0 /100 WBC Normal [facility] Comment on above: Order Comment: Speci men Type: BLOOD SPECIMEN Ordering Facility: [facility] Address: [address] [place], [place] [address] Performed By: #### 5 7021-8 #### [facility] CLIA [id number] [address] [place] [address] [place] Platelet mean volume (Bld) [Entitic vol] 10.5 fL Normal 9.0-12.7 [facility] Comment on above: Order Comment: Speci men Type: BLOOD SPECIMEN Ordering Facility: [facility] Address: [address] [place] [address] Performed By: #### 5 7021-8 #### [facility] CLIA [id number] [address] [place] [address] [place] Platelets (Bld) [#/Vol] 261 10*3/uL Normal 150-400 [facility] Comment on above: Order Comment: Speci men Type: BLOOD SPECIMEN Ordering Facility: [facility] Address: [address] [place] [address] Performed By: #### 5 7021-8 #### [facility] CLIA [id number] [address] [place] [address] [place] RBC (Bld) [#/Vol] 4.10 10*6/uL Normal 3.90-5.20 [facility] Comment on above: Order Comment: Speci men Type: BLOOD SPECIMEN Ordering Facility: [facility] Address: [address] [place] [address] Performed By: #### 5 7021-8 #### [facility] CLIA [id number] [address] [place], [place] [address] [place] WBC (Bld) [#/Vol] 8.39 10*3/uL Normal 3.70-11.00 [facility] Comment on above: Order Comment: Speci men Type: BLOOD SPECIMEN Ordering Facility: [facility] Address: [address] [place] [address] Performed By: #### 5 7021-8 #### [facility] CLIA [id number] [address] [place] [address] [place] HBV surface Ag Ser Qlon 09-13 HBV surface Ag Ql (S) Non-Reactive Normal Equivocal, Nonreactive [facility] Comment on above: Order Comment: Speci men Type: BLOOD SPECIMEN Ordering Facility: [facility] Address: [address] [place] [address] Result Comment: Resu lts were obtained with the [employer] IM IgM assay. Values obtained with different manufactures' assay methods may not be used interchangeably. Performed By: #### 1 6128-1, 5195-3, 01073-2, RUBLEOLA #### [facility] CLIA [id number] [address] [place] [address] HCV Ab Ser Qlon 10-05-2024 HCV Ab Ql (S) Non-Reactive Normal Nonreactive [facility] Comment on above: Order Comment: Speci butch Type: BLOOD SPECIMEN Ordering Facility: [facility] Address: [address] [place] [address] Result Comment: Scre ening test negative Nonreactive HCV Antibody Screen is consistent with no HCV infection, unless recent infection is suspected or other evidence exists to indicate HCV infection. Results were obtained with the [employer] IM IgG assay. Values obtained with different manufactures' assay methods may not be used interchangeably. Performed By: #### 1 6128-1, 5195-3, 05231-2, RUBYEIMIG #### [facility] CLIA [id number] [address] [place] [address] OF [facility] HIV 1+2 Ab IA Qlon HIV 1+2 Ab+HIV1 p24 Ag IA Ql Non-Reactive Normal Nonreactive [facility] Comment on above: Order Comment: Speci men Type: BLOOD SPECIMEN Ordering Facility: [facility] Address: [address] [place] [address] Result Comment: Nonr eactive: Less than 1.0 index value Specimens with an index value <1.0 are considered nonreactive for antibodies to HIV-1, HIV-2, and p24 antigen by the [employer] IM CHIV assay. Performed By: #### 1 6128-1, 5195-3, 36258-9, RUBIGG #### [facility] CLIA [id number] [address] [place] [address] [place] HbA1c (Bld)on 10-05-2024 Average glucose Estimated from glycated hemoglobin (Bld) [Mass/Vol] 94 mg/dL Normal [facility] Comment on above: Order Comment: Speci men Type: BLOOD SPECIMEN Ordering Facility: [facility] Address: [address] [place] [address] Result Comment: eAG: (Estimated average glucose) is a calculated value from HgbA1c and is sales representative business courses of the average blood glucose level in the last 2-3 month period. Performed By: #### 5 5454-3 #### [facility] CLIA [id number] [address] [place] [address] [place] HbA1c (Bld) [Mass fraction] 4.9 % Normal 4.3-5.6 [facility] Comment on above: Order Comment: Cally butch Type: BLOOD SPECIMEN Ordering Facility: [facility] Address: [address] [place] [address] Result Comment: Amer [place] Diabetes Association guidelines indicate that patients with HgbA1c in the range 5.7-6.4% are at increased risk for development of diabetes, and intervention by lifestyle modification may be beneficial. HgbA1c greater or equal to 6.5% is considered diagnostic of diabetes. Performed By: #### 5 5454-3 #### [facility] CLIA [id number] [address] [place] [address] [place] RUBELLA IGG ANTIBODYon 10-05 RUBELLA IGG AB, QUAL Positive Normal Positive [facility] Comment on above: Order Comment: Speci men Type: BLOOD SPECIMEN Ordering Facility: [facility] Address: [address] [place] [address] Result Comment: <5 I U/ML Negative for IgG antibodies to Rubella >= 5-9.9 IU/ML Equivocal for IgG antibodies to Rubella Virus. Obtain new specimen and test using Rubella IgG assay. >=10 IU/ML Positive for IgG antibodies to Rubella Performed By: #### 1 6128-1, 5195-3, 57391-0, RUBIGG #### [facility] CLIA [id number] [address] [place] [address] [place] Reagin and Treponema pallidu m IgG and IgM [Interp]on 10-05-2024 T. pallidum IgG+IgM IA Ql (S) Non-Reactive Normal Nonreactive [facility] Comment on above: Order Comment: Speci men Type: BLOOD SPECIMEN Ordering Facility: [facility] Address: [address] [place] [address] Performed By: #### 7 3752-8 #### [facility] CLIA [id number] [address] [place] [address] [place] Reagin+T pallidum IgG+IgM Se rPl-Impon 10-05-2024 Reagin and Treponema pallidum IgG and IgM [Interp] Cannot exclude recent Treponemal infection if specimen collected within 7-10 days after appearance of suspect lesions or 2-3 weeks after an exposure. Clinical correlation is required. [facility] Comment on above: Order Comment: Speci men Type: BLOOD SPECIMEN Ordering Facility: [facility] Address: [address] [place] [address] Performed By: #### 7 3752-8 #### [facility] CLIA [id number] [address] [place] [address] [place] TYPE + SCREEN PRENATALon ABO O [facility] Comment on above: Order Comment: Speci men Type: BLOOD SPECIMEN Ordering Facility: [facility] Address: [address] [place] [address] Performed By: #### T SPN #### [facility] CLIA [id number] [address] [place] [address] Rh Nom (Bld) Positive Normal [facility] Comment on above: Order Comment: Speci men Type: BLOOD SPECIMEN Ordering Facility: [facility] Address: [address] [place] [address] Performed By: #### T SPN #### [facility] CLIA [id number] [address] [place] [address] TYPE AND SCREEN EXPIRATION 10/08/2024 23:59 Normal [facility] Comment on above: Order Comment: Speci men Type: BLOOD SPECIMEN Ordering Facility: [facility] Address: [address] [place] [address] Performed By: #### T SPN #### [facility] CLIA [id number] [address] [place] [address] [facility] CNPN Telephone (PSWSTR) ----- MARZENA PICKERING ([id number]) 1990 [facility] Date Time Provider Department 09/16/24 SAMARIA HAJI PSWSTR During your visit today, we recorded the following information about you: Marlena Olsen LPN 09/16/2024 1:34 PM Signed Call placed to patient (x2) with message left with today's VV information for today. Hopefully patient signs on for visit. SOCRATES Vasquez Nishi J, TECHNICAL SALES ASSOCIATE.[employer] 09/16/2024 4:32 PM Signed Patient had to cancel her visit with the provider today as she got called into work. Could you please reach out and help the patient schedule an appointment sooner than her October visit. Allergies As of Date: 09/16/2024 Noted Allergy Reaction TREE NUTS 05/19/2020 4 - Hives Comments: Occasionally gets hives when she eats cashews and almonds Date Reviewed: 09/08/2024 Reviewed by: Qian Nichols MA - Fully Assessed Prescriptions as of 09/16/2024 - aspirin, enteric coated (ECOTRIN LOW STRENGTH) 81 mg EC tablet Take 1 tablet by mouth once daily. - ondansetron orally disintegrating (ZOFRAN ODT) 4 mg disintegrating tablet Take 1 tablet by mouth every 8 hours as needed for nausea/vomiting. - vit no.124/iron/folic ( VITAMIN ORAL) Take by mouth. - sertraline (ZOLOFT) 100 mg tablet Take 1 and 1/2 tablets by mouth once daily. - multivit no.38-folate 6-patito (PRENATE AM) 1-500 mg tab (Discontinued) Take 1 tablet by mouth once daily. 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] 05/19/2020 Family history of Cleveland-Sachs disease [Z83.49] 05/19/2020 Family history of defects [Z82.79] 05/19/2020 labor in third trimester without delive*11/28/2020 02/07/2021 Encounter for supervision of normal i*12/26/2020 02/17/2021 ASCUS of cervix with negative high risk HPV [R8*02/17/2021 Short interval between pregnancies affecting pr*04/13/2021 12/26/2021 Supervision of high risk , antepartum *04/13/2021 Patient request for diagnostic testing [Z01.89] 04/13/2021 12/26/2021 Vaginal yeast infection [B37.31] 04/15/2021 12/26/2021 History of labor [Z87.51] 04/23/2021 Maternal iron deficiency anemia affecting pregn*09/15/2021 12/26/2021 contractions [O47.00] 10/06/2021 12/26/2021 GUIDO (generalized anxiety disorder) [F41.1] 11/02/2022 Herpes simplex virus (HSV) infection [B00.9] History of depression [Z87.59, Z86.5* Anxiety and depression [F41.9, F32.A] 09/08/2024 Encounter Status:Closed by MARLENA OLSEN on 09/16/24 [facility] 09-15-2024 [facility] Telephone (PSWSTR) ----- MARZENA PICKERING ([id number]) 1990 [facility] Date Time Provider Department 09/15/24 SAMARIA HAJI PSWSTR During your visit today, we recorded the following information about you: Marlena Olsen LPN 09/15/2024 11:12 AM Signed Call placed to patient, offering VV tomorrow 09/16/24 @ 4:30 pm to discuss medication side effects with Provider. Message left for patient to confirm visit via [facility] or by calling [phone]. SOCRATES aVsquez Nishi J, TECHNICAL SALES ASSOCIATE.[facility] 09/15/2024 11:32 AM Signed Noted. Thank you. Allergies As of Date: 09/15/2024 Noted Allergy Reaction TREE NUTS 05/19/2020 4 - Hives Comments: Occasionally gets hives when she eats cashews and almonds Date Reviewed: 09/08/2024 Reviewed by: Qian Nichols MA - Fully Assessed Prescriptions as of 09/15/2024 - aspirin, enteric coated (ECOTRIN LOW STRENGTH) 81 mg EC tablet Take 1 tablet by mouth once daily. - ondansetron orally disintegrating (ZOFRAN ODT) 4 mg disintegrating tablet Take 1 tablet by mouth every 8 hours as needed for nausea/vomiting. - vit no.124/iron/folic ( VITAMIN ORAL) Take by mouth. - sertraline (ZOLOFT) 100 mg tablet Take 1 and 1/2 tablets by mouth once daily. - multivit no.38-folate 6-patito (PRENATE AM) 1-500 mg tab (Discontinued) Take 1 tablet by mouth once daily. 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] 05/19/2020 Family history of Cleveland-Sachs disease [Z83.49] 05/19/2020 Family history of defects [Z82.79] 05/19/2020 labor in third trimester without delive*11/28/2020 02/07/2021 Encounter for supervision of normal i*12/26/2020 02/17/2021 ASCUS of cervix with negative high risk HPV [R8*02/17/2021 Short interval between pregnancies affecting pr*04/13/2021 12/26/2021 Supervision of high risk , antepartum *04/13/2021 Patient request for diagnostic testing [Z01.89] 04/13/2021 12/26/2021 Vaginal yeast infection [B37.31] 04/15/2021 12/26/2021 History of labor [Z87.51] 04/23/2021 Maternal iron deficiency anemia affecting pregn*09/15/2021 12/26/2021 contractions [O47.00] 10/06/2021 12/26/2021 GUIDO (generalized anxiety disorder) [F41.1] 11/02/2022 Herpes simplex virus (HSV) infection [B00.9] History of depression [Z87.59, Z86.5* Anxiety and depression [F41.9, F32.A] 09/08/2024 Encounter Status:Closed by MARLENA OLSEN on 09/15/24 Normal [facility] BACTERIAL CULTURE, URINEOrde red By: Robby Rey on 09-09-2024 Bacteria identified Cx Nom (U) 10,000 -<50,000 CFU/ml Normal urogenital mery [facility] BACTERIAL VAGINOSIS NAATon 0 09-09-2024 Interpretation and review of laboratory results Normal [facility] Lactobacillus crispatus+gasseri+je nsenii + Gardnerella vaginalis + Atopobium vaginae rRNA NIGHAT+probe Ql (Vag fld) Not detected Not detected [facility] Bacteria identified Cx Nom ( U)Ordered By: Robby Rey on 09-09-2024 [facility] C. trachomatis+N. gonorrhoea e DNA NIGHAT+probe Ql (Unsp spec)on 09-09-2024 C. trachomatis rRNA NIGHAT+probe Ql (Unsp spec) Not detected Not detected [facility] Interpretation and review of laboratory results Normal [facility] N. gonorrhoeae rRNA NIGHAT+probe Ql (Unsp spec) Not detected Not detected [facility] This FDA-approved as say has been modified to accept rectal swabs self-collected in a healthcare setting. For self-collected rectal swabs, the test was developed and its performance characteristics determined by the [facility]'s [facility]ology [facility] [place] ([facility]). It has not been cleared or approved by the FDA. [facility] is regulated under CLIA as qualified to perform high-complexity testing. This test is used for clinical purposes. It should not be regarded as investigational or for research. [facility] TRIXIE/TRICHOMONAS NAATon 0 09-09-2024 C. glabrata RNA NIGHAT+probe Ql (Vag fld) Not detected Not detected [facility] Trixie sp DNA NIGHAT+probe Ql (Vag fld) Not detected Not detected [facility] Comment on above: The Trixie species group target includes C. albicans, C. tropicalis, C. parapsilosis, and C. dubliniensis. Interpretation and review of laboratory results Normal [facility] T. vaginalis DNA NIGHAT+probe Ql (Unsp spec) Not detected Not detected [facility] BACTERIAL VAGINOSIS NAATon 0 09-08-2024 Lactobacillus crispatus+gasseri+je nsenii + Gardnerella vaginalis + Atopobium vaginae rRNA NIGHAT+probe Ql (Vag fld) Not detected Normal Not detected [facility] Comment on above: Order Comment: Speci men Type: SWABOrdering Facility: [facility] Address: [address] [place] [address] Performed By: #### 3 6902-5, BVAMP ####[facility] [id number] [place] [address] [place] Bacteria Ur Culton Bacteria identified Cx Nom (U) ORGANISM ID: 1 10,000 -<50,000 CFU/ml Normal urogenital mery Normal [facility] Comment on above: Performed By: #### 6 30-4 ####[facility] [id number] [place] [address] [place] C. trachomatis+N. gonorrhoea e DNA NIGHAT+probe Ql (Unsp spec)on 09-08-2024 C. trachomatis rRNA NIGHAT+probe Ql (Unsp spec) Not detected Normal Not detected [facility] Comment on above: Order Comment: Speci men Type: SWABOrdering Facility: [facility] Address: [address] [place] [address] Performed By: #### 3 6902-5, BVAMP ####[facility] [id number] [address] [place] N. gonorrhoeae rRNA NIGHAT+probe Ql (Unsp spec) Not detected Normal Not detected [facility] Comment on above: Order Comment: Speci men Type: SWABOrdering Facility: [facility] Address: [address] [place] [address] Performed By: #### 3 6902-5, BVAMP ####[facility] [id number] [place] [address] [place] TRIXIE/TRICHOMONAS NAATon 0 09-08-2024 C. glabrata RNA NIGHAT+probe Ql (Vag fld) Not detected Normal Not detected [facility] Comment on above: Order Comment: Speci men Type: SWABOrdering Facility: [facility] Address: [address] [place] [address] Performed By: #### C VTV ####[facility] [id number] [place] [address] [place] Trixie sp DNA NIGHAT+probe Ql (Vag fld) Not detected Normal Not detected [facility] Comment on above: Order Comment: Speci men Type: SWABOrdering Facility: [facility] Address: [address] [place] [address] Result Comment: The Trixie species group target includes C. albicans, C. tropicalis, C. parapsilosis, and C. dubliniensis. Performed By: #### C VTV ####[facility] [id number] [address] OF [facility] T. 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 Method Transabdominal and transvaginal ultrasound examination [place] . Number of embryos: 1 Dating LMP on: 07/16/2024 GA by LMP 7 w + 5 d NIKKI by LMP: 04/22/2025 Ultrasound examination on: 09/08/2024 GA by U/S based upon: CRL GA by U/S 7 w + 1 d NIKKI by U/S: 04/26/2025 Assigned: based on the LMP, selected on 09/08/2024 Assigned GA 7 w + 5 d Assigned NIKKI: 04/22/2025 Biometry Standard FHR 146 bpm CRL 10.6 mm 7w 1d 7% Hadlock Assessment Gestational sac: visualized Location: intrauterine Yolk sac: visualized Embryo: visualized CRL 10.6 mm 7w 1d 7% Hadlock Cardiac activity: present FHR 146 bpm General Evaluation Cardiac activity present. FHR 146 bpm Performed By: Marlee Almanza CNM Read By: Marlee Almanza CNM MATERNAL MEDICINE [facility] Radiology Study observation (narrative) [facility] ED PROV NOTEon 09-02-2024 ED PROV NOTE HNO ID: [id number] Author: MARGUERITE GARCIA APRN.[place] Service: Emergency Medicine Author Type: Nurse Practitioner Type: ED Provider Notes Filed: 09/02/2024 01:35 Note Text: ED Provider Note Patient Name: Marzena Pickering : 1990 SERVICE DATE: 09/01/24 History Patient presents with: Abdominal Pain: RLQ abd pain, N/V/D, 7 weeks . SOB and CP when taking a deep breath. Syncopal episode about 1 week ago. Marzena is a 34 year old female who presents to the ED with: c/o N/V/D for about 2 weeks, chest pain when taking deep breath, sore throat, right sided abdominal pain that started yesterday. She states she had a syncopal episode about 1 week ago after feeling dizzy and has been sporadically feeling dizzy over the last couple of weeks. She states she believes she is approximately 7 weeks , . She follows with a block piler and was told after 6 weeks gestation, she would be okay to start Zofran. However, with right sided pelvic pressure, she came to the emergency room for further evaluation. She has two young children in the house, both of which have been sick over the last few weeks. She has been unable to eat or drink anything due to the nausea/vomiting. History provided by: Patient PAST MEDICAL HISTORY Diagnosis Date - Anxiety - anxiety/depression - ASCUS of cervix with negative high risk HPV - Fatigue - Herpes simplex virus (HSV) infection has tested positive for antibodies but never had an outbreak - Maternal iron deficiency anemia affecting in third trimester, antepartum 09/15/2021 - Metrorrhagia PAST SURGICAL HISTORY Procedure Laterality Date - PAST SURGICAL HISTORY OF wisdom teeth FAMILY HISTORY Problem Relation Age of Onset - No Known Problems Mother - No Known Problems Father - No Known Problems Sister - Blood Clots Maternal Grandfather - Cancer Paternal Grandmother ovarian cancer - No Known Problems Paternal Grandfather - other (dairy allergy) Daughter Social History Tobacco Use - Smoking status: Never - Smokeless tobacco: Never Vaping Use - Vaping status: Never Used Substance and Sexual Activity - Alcohol use: Not Currently Comment: Occasional - Drug use: No - Sexual activity: Yes Partners: Male ALLERGIES Allergen Reactions - Tree Nuts Hives Occasionally gets hives when she eats cashews and almonds Review of Systems Constitutional: Negative for chills and fever. HENT: Positive for ear pain (right ear pain), rhinorrhea, sinus pressure and sore throat. Eyes: Negative. Respiratory: Positive for cough and chest tightness. Negative for shortness of breath and wheezing. Cardiovascular: Negative for chest pain, palpitations and leg swelling. Gastrointestinal: Positive for abdominal pain, diarrhea, nausea and vomiting. Genitourinary: Negative for difficulty urinating, vaginal bleeding, vaginal discharge and vaginal pain. Musculoskeletal: Negative. All other systems reviewed and are negative. Physical Exam Vitals [09/01/242041] BP Pulse Temp Temp src Resp SpO2 Weight Height 108/77 78 36.6 ?C (97.8 ?F) -- 18 100 % 62.6 kg (138 lb 0.1 oz) 1.626 m (5' 4) Physical Exam Vitals and nursing note reviewed. Constitutional: Appearance: She is well-developed and normal weight. HENT: Head: Normocephalic and atraumatic. Right Ear: Hearing, ear canal and external ear normal. A middle ear effusion is present. Left Ear: Hearing, ear canal and external ear normal. A middle ear effusion is present. Cardiovascular: Rate and Rhythm: Normal rate and regular rhythm. Pulmonary: Effort: Pulmonary effort is normal. Breath sounds: Normal breath sounds. Abdominal: General: Abdomen is flat. Bowel sounds are normal. Skin: General: Skin is warm. Capillary Refill: Capillary refill takes less than 2 seconds. Neurological: Mental Status: She is alert. Diagnostic Testing ED Labs Ordered and Reviewed COMPREHENSIVE METABOLIC PANEL - Abnormal; Notable for the following components: Result Value Ref Range Creatinine 0.57 (*) 0.58 - 0.96 mg/dL All other components within normal limits HCG QUANTITATIVE - Abnormal; Notable for the following components: hCG Quantitative, Blood 26,131.0 (*) <5.0 mIU/mL All other components within normal limits COMPLETE BLOOD COUNT AND DIFFERENTIAL - Abnormal; Notable for the following components: Abs Lymph 0.98 (*) 1.00 - 4.00 k/uL All other components within normal limits URINALYSIS (WITH MICROSCOPIC) WITH CULTURE IF INDICATED - Abnormal; Notable for the following components: Bacteria Few (*) None Seen /HPF All other components within normal limits COVID AND INFLUENZA A/B AND RSV PCR, EXPEDITED - Abnormal; Notable for the following components: Influenza A RNA Detected (*) Not Detected All other components within normal limits Narrative: Reference Range (the expected result in uninfected individuals): Not detected GROUP (more content not included)... Normal [facility] B-HCG [place] [address].0 m[IU]/mL High <5.0 [facility] Comment on above: Order Comment: Speci men Type: BLOOD SPECIMEN Ordering Facility: [facility] Address: [address] [place] [address] Result Comment: EMMA TITATIVE HCG NORMAL RANGES Weeks of Gestation (Weeks Since LMP) 3 Weeks (5.8-71.2 mIU/mL) 4 Weeks (9.5-750 mIU/mL) 5 Weeks (217-7138 mIU/mL) 6 Weeks (158-02763 mIU/mL) 7 Weeks (3697-062612 mIU/mL) 8 Weeks (37153-042270 mIU/mL) 9 Weeks (20260-680434 mIU/mL) 10 Weeks (14836-135901 mIU/mL) 12 Weeks (62402-892929 mIU/mL) Referenced to 4th IS of [facility] Performed By: #### 2 1198-7 #### [facility] CLIA [id number] [address] [place] [address] [place] CBC W Auto Differential pane l (Bld)on 09-01-2024 Basophils (Bld) [#/Vol] 10*3/uL Normal <0.11 [facility] Comment on above: Order Comment: Speci men Type: BLOOD SPECIMENOrdering Facility: [facility] Address: [address] [place] [address] Performed By: #### 5 7021-8 ####[facility] [id number] [address] [place] Basophils/100 WBC (Bld) 0.2 % Normal [facility] Comment on above: Order Comment: Speci men Type: BLOOD SPECIMENOrdering Facility: [facility] Address: [address] [place] [address] Performed By: #### 5 7021-8 ####[facility]IA [id number] [address] [place] Differential cell count method Nom (Bld) Auto Normal [facility] Comment on above: Order Comment: Speci men Type: BLOOD SPECIMENOrdering Facility: [facility] Address: [address] [place] [address] Performed By: #### 5 7021-8 ####[facility]IA [id number] [place] [address] [place] Eosinophils (Bld) [#/Vol] 0.06 10*3/uL Normal <0.46 [facility] Comment on above: Order Comment: Speci men Type: BLOOD SPECIMENOrdering Facility: [facility] Address: [address] [place] [address] Performed By: #### 5 7021-8 ####[facility]IA [id number] [place] [address] [place] Eosinophils/100 WBC (Bld) 1.3 % Normal [facility] Comment on above: Order Comment: Speci men Type: BLOOD SPECIMENOrdering Facility: [facility] Address: [address] [place] [address] Performed By: #### 5 7021-8 ####[facility]IA [id number] [place] [address] [place] Erythrocyte distribution width (RBC) [Ratio] 11.9 % Normal 11.5-15.0 [facility] Comment on above: Order Comment: Speci men Type: BLOOD SPECIMENOrdering Facility: [facility] Address: [address] [place] [address] Performed By: #### 5 7021-8 ####[facility] [id number] [address] [place] Hematocrit (Bld) [Volume fraction] 38.2 % Normal 36.0-46.0 [facility] Comment on above: Order Comment: Speci men Type: BLOOD SPECIMENOrdering Facility: [facility] Address: [address] [place] [address] Performed By: #### 5 7021-8 ####[facility]IA [id number] [place] [address] [place] Hemoglobin (Bld) [Mass/Vol] 12.8 g/dL Normal 11.5-15.5 [facility] Comment on above: Order Comment: Speci men Type: BLOOD SPECIMENOrdering Facility: [facility] Address: [address] [place] [address] Performed By: #### 5 7021-8 ####[facility] [id number] [place] [address] [place] Immature granulocytes (Bld) [#/Vol] 10*3/uL Normal <0.10 [facility] Comment on above: Order Comment: Speci men Type: BLOOD SPECIMENOrdering Facility: [facility] Address: [address] [place] [address] Performed By: #### 5 7021-8 ####[facility] [id number] [place] [address] [place] Immature granulocytes/100 WBC (Bld) 0.2 % Normal [facility] Comment on above: Order Comment: Speci men Type: BLOOD SPECIMENOrdering Facility: [facility] Address: [address] [place] [address] Performed By: #### 5 7021-8 ####[facility] [id number] [place] [address] [place] Lymphocytes (Bld) [#/Vol] 0.98 10*3/uL Low 1.00-4.00 [facility] Comment on above: Order Comment: Speci men Type: BLOOD SPECIMENOrdering Facility: [facility] Address: [address] [place] [address] Performed By: #### 5 7021-8 ####[facility]IA [id number] [place] [address] [place] Lymphocytes/100 WBC (Bld) 21.7 % Normal [facility] Comment on above: Order Comment: Speci men Type: BLOOD SPECIMENOrdering Facility: [facility] Address: [address] [place] [address] Performed By: #### 5 7021-8 ####[facility] [id number] [address] [place] MCH (RBC) [Entitic mass] 28.8 pg Normal 26.0-34.0 [facility] Comment on above: Order Comment: Speci men Type: BLOOD SPECIMENOrdering Facility: [facility] Address: [address] [place] [address] Performed By: #### 5 7021-8 ####[facility] [id number] [address] [place] [facility] MCHC (RBC) [Mass/Vol] 33.5 g/dL Normal 30.5-36.0 [facility] Comment on above: Order Comment: Speci men Type: BLOOD SPECIMENOrdering Facility: [facility] Address: [address] [place] [address] Performed By: #### 5 7021-8 ####[facility] [id number] [address] [place] [facility] MCV (RBC) [Entitic vol] 85.8 fL Normal 80.0-100.0 [facility] Comment on above: Order Comment: Speci men Type: BLOOD SPECIMENOrdering Facility: [facility] Address: [address] [place] [address] Performed By: #### 5 7021-8 ####[facility]IA [id number] [address] Monocytes (Bld) [#/Vol] 0.46 10*3/uL Normal <0.87 [facility] Comment on above: Order Comment: Speci men Type: BLOOD SPECIMENOrdering Facility: [facility] Address: [address] [place] [address] Performed By: #### 5 7021-8 ####[facility]IA [id number] [place] [address] [place] Monocytes/100 WBC (Bld) 10.2 % Normal [facility] Comment on above: Order Comment: Speci men Type: BLOOD SPECIMENOrdering Facility: [facility] Address: [address] [place] [address] Performed By: #### 5 7021-8 ####[facility]IA [id number] [place] [address] [place] Neutrophils (Bld) [#/Vol] 2.99 10*3/uL Normal 1.45-7.50 [facility] Comment on above: Order Comment: Speci men Type: BLOOD SPECIMENOrdering Facility: [facility] Address: [address] [place] [address] Performed By: #### 5 7021-8 ####[facility] [id number] [place] [address] [place] Neutrophils/100 WBC (Bld) 66.4 % Normal [facility] Comment on above: Order Comment: Speci men Type: BLOOD SPECIMENOrdering Facility: [facility] Address: [address] [place] [address] Performed By: #### 5 7021-8 ####[facility] [id number] [place] [address] [place] Nucleated RBC (Bld) [#/Vol] 10*3/uL Normal <0.01 [facility] Comment on above: Order Comment: Speci men Type: BLOOD SPECIMENOrdering Facility: [facility] Address: [address] [place] [address] Performed By: #### 5 7021-8 ####[facility]IA [id number] [place] [address] [place] Nucleated RBC/100 WBC (Bld) [Ratio] 0.0 /100 WBC Normal [facility] Comment on above: Order Comment: Speci men Type: BLOOD SPECIMENOrdering Facility: [facility] Address: [address] [place] [address] Performed By: #### 5 7021-8 ####[facility]IA [id number] [place] [address] [place] Platelet mean volume (Bld) [Entitic vol] 10.0 fL Normal 9.0-12.7 [facility] Comment on above: Order Comment: Speci men Type: BLOOD SPECIMENOrdering Facility: [facility] Address: [address] [place] [address] Performed By: #### 5 7021-8 ####[facility] [id number] [place] [address] [place] Platelets (Bld) [#/Vol] 236 10*3/uL Normal 150-400 [facility] Comment on above: Order Comment: Speci men Type: BLOOD SPECIMENOrdering Facility: [facility] Address: [address] [place] [address] Performed By: #### 5 7021-8 ####[facility] [id number] [place] [address] [place] RBC (Bld) [#/Vol] 4.45 10*6/uL Normal 3.90-5.20 [facility] Comment on above: Order Comment: Speci men Type: BLOOD SPECIMENOrdering Facility: [facility] Address: [address] [place] [address] Performed By: #### 5 7021-8 ####[facility] [id number] [place] [address] [place] WBC (Bld) [#/Vol] 4.51 10*3/uL Normal 3.70-11.00 [facility] Comment on above: Order Comment: Speci men Type: BLOOD SPECIMENOrdering Facility: [facility] Address: [address] [place] [address] Performed By: #### 5 7021-8 ####[facility] [id number] [place] [address] [facility] [place] CNOVon 09-01-2024 CNOV Office Visit ([facility] [place] ) ----- MARZENA PICKERING ([id number]) 1990 F [facility] Date Time Provider Department 09/01/24 5:20 PM ARIANNA BYNUM During your visit today, we recorded the following information about you: Temperature Pulse Respiration Blood pressure 99.1 degrees 74/minute 16/minute 109/71 Weight Last Period 61 kg 07/16/24 Arianna Bynum APRN.[place] 09/01/2024 6:18 PM Signed Recommend ER for further evaluation Arianna Bynum APRN.[place] 09/01/2024 6:23 PM Signed September 01, 2024 Subjective Chief Complaint: Vomiting (Sx started x 2 weeks with vomiting, diarrhea,cough, chest tightness. Pt is 7 weeks . Tylenol last dose 1400 tody) HPI: Marzena Pickering is a 34 year old female who presents today for a 2-week history of cough, sinus congestion with drainage, nausea with vomiting and diarrhea. Reports has had x 6 emesis yesterday. Reports feels dizzy and feels like she is going to pass out at times. Patient is 7 weeks and also reports having some abdominal pain and chest discomfort. Reports both of her children had influenza. Has called her block piler in [place] on 08/22 and had no vomiting then. Aware of limitations here at urgent care and I recommend to go to ED for fluids and further evaluation. Pt. Agrees. PAST MEDICAL HISTORY Diagnosis Date Anxiety anxiety/depression ASCUS of cervix with negative high risk HPV Fatigue Herpes simplex virus (HSV) infection has tested positive for antibodies but never had an outbreak Maternal iron deficiency anemia affecting in third trimester, antepartum 09/15/2021 Metrorrhagia PAST SURGICAL HISTORY Procedure Laterality Date PAST SURGICAL HISTORY OF wisdom teeth FAMILY HISTORY Problem Relation Age of Onset No Known Problems Mother No Known Problems Father No Known Problems Sister Blood Clots Maternal Grandfather Cancer Paternal Grandmother ovarian cancer No Known Problems Paternal Grandfather other (dairy allergy) Daughter Social History Tobacco Use Smoking status: Never Smokeless tobacco: Never Vaping Use Vaping status: Never Used Substance Use Topics Alcohol use: Not Currently Comment: Occasional Drug use: No ALLERGIES Allergen Reactions Tree Nuts Hives Occasionally gets hives when she eats cashews and almonds Immunization History Administered Date(s) Administered Haemophilus influenzae b (Hib) vaccine, unspecified formulation [birth year] 04/20/1993 02/27/1995 diphtheria tetanus pertussis (DTP) vaccine [birth year] 04/20/1993 02/27/1995 10/08/1997 02/15/2005 hepatitis A-hepatitis B (HepA-HepB) vaccine (TWINRIX) 10/22/2017 12/19/2017 hepatitis B (HepB) vaccine, 3-dose series, age 0 yr - 19 yr (ENGERIX B-PEDS, RECOMBIVAX HB-PEDS) 02/27/2011 human papillomavirus (HPV4) vaccine, quadrivalent (GARDASIL) 02/27/2011 influenza (HD-IIV3) vaccine, age 65+ yr, high dose, trivalent, PF (FLUZONE HIGH-DOSE) 05/13/2014 influenza (IIV4) vaccine, age 6 mo - 64 yr, quadrivalent, PF (AFLURIA, FLUARIX, FLULAVAL, FLUZONE) 08/01/2017 03/31/2018 04/03/2019 influenza vaccine, unspecified formulation 05/02/2023 measles mumps rubella (MMR) vaccine (M-M-R II, PRIORIX) 02/27/1995 04/03/2005 poliovirus vaccine, unspecified formulation [birth year] 02/27/1995 10/08/1997 tetanus diphtheria pertussis (Tdap) vaccine, age 7+ yr (ADACEL, BOOSTRIX) 12/19/2017 10/25/2020 09/15/2021 Current Medications: vit no.124/iron/folic ( VITAMIN ORAL) Take by mouth. sertraline (ZOLOFT) 100 mg tablet Take 1 and 1/2 tablets by mouth once daily. [DISCONTINUED] multivit no.38-folate 6-patito (PRENATE AM) 1-500 mg tab Take 1 tablet by mouth once daily. Review of Systems HENT: Positive for congestion (sinus drainage), ear pain and sore throat. Respiratory: Positive for cough. Cardiovascular: Positive for chest pain. Gastrointestinal: Positive for abdominal pain, diarrhea, nausea and vomiting. Genitourinary: Negative. Musculoskeletal: Negative. Skin: Negative. Neurological: Negative. Objective BP 109/71 Pulse 74 Temp (Src) 99.1 (Oral) Resp 16 Wt 134 lb 7.7 oz (61.0kg) SpO2 99% LMP 07/16/2024 Physical Exam Vitals and nursing note reviewed. Constitutional: Appearance: Normal appearance. HENT: Head: Normocephalic and atraumatic. Right Ear: Ear canal and external ear normal. Tenderness present. A middle ear effusion is present. There is no impacted cerumen. Tympanic membrane is not perforated or erythematous. Left Ear: Ear canal and external ear normal. Tenderness present. A middle ear effusion is present. There is no impacted cerumen. Tympanic membrane is not perforated or erythematous. Nose: Nose normal. Mouth/Throat: Lips: Freeman. No lesions. Mouth: Mucous membranes are moist. Pharynx: Oropharynx is clear. Uvula midline. Posterior orop (more content not included)... Normal [facility] Comprehensive metabolic 2000 panelon 09-01-2024 Albumin [Mass/Vol] 4.5 g/dL Normal 3.9-4.9 [facility] Comment on above: Order Comment: Speci men Type: BLOOD SPECIMEN Ordering Facility: [facility] Address: [address] [place] [address] Performed By: #### 2 4323-8 #### [facility] CLIA [id number] [address] [place] [address] [place] ALP [Catalytic activity/Vol] 72 U/L Normal 34-123 [facility] Comment on above: Order Comment: Speci men Type: BLOOD SPECIMEN Ordering Facility: [facility] Address: [address] [place] [address] Performed By: #### 2 4323-8 #### [facility] CLIA [id number] [address] [place] [address] [place] ALT [Catalytic activity/Vol] 14 U/L Normal 7-38 [facility] Comment on above: Order Comment: Speci men Type: BLOOD SPECIMEN Ordering Facility: [facility] Address: [address] [place] [address] Performed By: #### 2 4323-8 #### [facility] CLIA [id number] [address] [place] [address] [place] Anion gap [Moles/Vol] 12 mmol/L Normal 8-15 [facility] Comment on above: Order Comment: Speci men Type: BLOOD SPECIMEN Ordering Facility: [facility] Address: [address] [place] [address] Performed By: #### 2 4323-8 #### [facility] CLIA [id number] [address] [place] [address] [place] AST [Catalytic activity/Vol] 22 U/L Normal 13-35 [facility] Comment on above: Order Comment: Speci men Type: BLOOD SPECIMEN Ordering Facility: [facility] Address: [address] [place] [address] Performed By: #### 2 4323-8 #### [facility] CLIA [id number] [address] [place] [address] [place] Bilirubin [Mass/Vol] 0.3 mg/dL Normal 0.2-1.3 [facility] Comment on above: Order Comment: Speci men Type: BLOOD SPECIMEN Ordering Facility: [facility] Address: [address] [place] [address] Performed By: #### 2 4323-8 #### [facility] CLIA [id number] [address] [place] [address] [place] Calcium [Mass/Vol] 9.3 mg/dL Normal 8.5-10.2 [facility] Comment on above: Order Comment: Speci men Type: BLOOD SPECIMEN Ordering Facility: [facility] Address: [address] [place] [address] Performed By: #### 2 4323-8 #### [facility] CLIA [id number] [address] [place] [address] [place] Chloride [Moles/Vol] 100 mmol/L Normal 98-107 [facility] Comment on above: Order Comment: Speci men Type: BLOOD SPECIMEN Ordering Facility: [facility] Address: [address] [place] [address] Performed By: #### 2 4323-8 #### [facility] CLIA [id number] [address] [place] [address] [place] CO2 [Moles/Vol] 24 mmol/L Normal 22-30 [facility] Comment on above: Order Comment: Speci men Type: BLOOD SPECIMEN Ordering Facility: [facility] Address: [address] [place] [address] Performed By: #### 2 4323-8 #### [facility] CLIA [id number] [address] [place] [address] [place] Creatinine [Mass/Vol] 0.57 mg/dL Low 0.58-0.96 [facility] Comment on above: Order Comment: Speci men Type: BLOOD SPECIMEN Ordering Facility: [facility] Address: [address] [place] [address] Performed By: #### 2 4323-8 #### [facility] CLIA [id number] [address] [place] [address] [place] Creatinine and Glomerular filtration rate.predicted panel (S/P/Bld) 124 mL/min/1.73m??? Normal >=60 [facility] Comment on above: Order Comment: Speci men Type: BLOOD SPECIMEN Ordering Facility: [facility] Address: [address] [place] [address] Result Comment: Kimberlee mated Glomerular Filtration Rate (eGFR) is calculated using the 2020 CKD-EPI creatinine equation. This equation utilizes serum creatinine, sex, and age as parameters. The creatinine assay has traceable calibration to isotope dilution-mass spectrometry. Refer to KDIGO guidelines for clinical interpretation. In patients with unstable renal function, e.g. those with acute kidney injury, the eGFR may not accurately reflect actual GFR. Performed By: #### 2 4323-8 #### [facility] CLIA [id number] [address] [place] [address] [place] Glucose [Mass/Vol] 92 mg/dL Normal 74-99 [facility] Comment on above: Order Comment: Speci men Type: BLOOD SPECIMEN Ordering Facility: [facility] Address: [address] [place], [place] [address] Result Comment: The [place] Diabetes Association (ADA) provides guidance for cutoff values for fasting glucose and random glucose. The ADA defines fasting as no caloric intake for at least 8 hours. Fasting plasma glucose results between 100 to 125 mg/dL indicate increased risk for diabetes (prediabetes). Fasting plasma glucose results greater than or equal to 126 mg/dL meet the criteria for diagnosis of diabetes. In the absence of unequivocal hyperglycemia, results should be confirmed by repeat testing. In a patient with classic symptoms of hyperglycemia or hyperglycemic crisis, random plasma glucose results greater than or equal to 200 mg/dL meet the criteria for diagnosis of diabetes. Reference: Standards of Medical Care in Diabetes 2016, [place] Diabetes Association. Diabetes Care. 2016.39(Suppl 1). Performed By: #### 2 4323-8 #### [facility] CLIA [id number] [address] [place] [address] [place] Potassium [Moles/Vol] 4.0 mmol/L Normal 3.7-5.1 [facility] Comment on above: Order Comment: Speci men Type: BLOOD SPECIMEN Ordering Facility: [facility] Address: [address] [place] [address] Performed By: #### 2 4323-8 #### [facility] CLIA [id number] [address] [place] [address] [place] Protein [Mass/Vol] 7.9 g/dL Normal 6.3-8.0 [facility] Comment on above: Order Comment: Speci men Type: BLOOD SPECIMEN Ordering Facility: [facility] Address: [address] [place], [place] [address] Performed By: #### 2 4323-8 #### [facility] [facility] CLIA [id number] [address] [place] [address] [place] Sodium [Moles/Vol] 136 mmol/L Normal 136-144 [facility] Comment on above: Order Comment: Speci men Type: BLOOD SPECIMEN Ordering Facility: [facility] Address: [address] [place], [place] [address] Performed By: #### 2 4323-8 #### [facility] CLIA [id number] [address] [place] [address] [place] Urea nitrogen [Mass/Vol] 7 mg/dL Normal 7-21 [facility] Comment on above: Order Comment: Speci men Type: BLOOD SPECIMEN Ordering Facility: [facility] Address: [address] [place] [address] Performed By: #### 2 4323-8 #### [facility] CLIA [id number] [address] [place], [place] [address] [facility] ED Triage Noteon 09-01-2024 ED Triage Note HNO ID: [id number] Author: MARGUERITE GARCIA APRN.BROOKE Service: Emergency Medicine Author Type: Nurse Practitioner Type: ED Triage Notes Filed: 09/01/2024 20:46 Note Text: ED TRIAGE PROVIDER NOTE Patient Name: Marzena Pickering Service Date: 09/01/24 BRIEF HPI: This is a 34 year old female who presents to the ED with: c/o N/V/D for about 2 weeks, chest pain when taking deep breath, sore throat, right sided abdominal pain that started yesterday. Syncopal episode about 1 week ago. Feeling dizzy. Approximately 7 weeks . . BRIEF EXAM: NAD Awake and Alert Non labored breathing No focal neurological deficits INITIAL WORKUP AND DECISION MAKING: Orders Placed This Encounter US PREG TRANSABD <14 WEEKS LTD US PREG TRANSVAG <14 WEEKS Comp Metabolic Panel HCG Quantitative Blood CBC + AUTO DIFF Urinalysis w Microscopic, reflex Culture Group A Streptococcus by PCR COVID AND Influenza A/B AND RSV PCR, Expedited The patient was seen by me in triage for a brief history and physician exam, which was obtained for triage reasons only. My exam is intended to be an initial medical screening exam for disposition within the ED with limited initial orders placed, when appropriate, to expedite care by the treating team. The remainder of testing, treatment and diagnostic plan will be assumed by the next provider who will be seeing the patient as a primary patient. See other physician/MOLD CARRIER/PA notation. SIGNATURE: Marguerite Garcia APRN.CNP Normal [facility] S pyo DNA Throat Ql NIGHAT+prob rylee 09-01-2024 S. pyogenes DNA NIGHAT+probe Ql (Throat) Not detected Normal Not detected [facility] Comment on above: Order Comment: Speci men Type: SWAB Ordering Facility: [facility] Address: [facility] [place] [address] Performed By: #### 6 0489-2 #### [facility] CLIA [id number] [address] [place] [address] [place] US PREG TRANSABD <14 WKS LTD on 09-01-2024 US PREG TRANSABD <14 WKS LTD * * *Final Report* * * DATE OF EXAM: Sep 01 2024 10:02PM UDU 1035 - US PREG TRANSABD <14 WKS LTD / UDU 1034 - US PREG TRANSVAG <14 WEEKS / PROCEDURE REASON: Pelvic pain, positive beta-HCG, audit consultant etiology suspected * * * * Physician Interpretation * * * * EXAMINATION: FIRST TRIMESTER TRANSVAGINAL AND TRANSABDOMINAL PELVIC ULTRASOUND CLINICAL HISTORY: LMP / Beta hCG if available Otherwise Signs and Symptoms such as Vaginal bleeding / Pelvic pain TECHNIQUE: Sonography of the pelvis was performed by transabdominal and transvaginal techniques. Images were obtained and stored in a permanent archive. MQ: USOB1_1 COMPARISON: 11/23/2020. RESULT: Uterus: - Orientation: Anteverted - Size: 8.8 x 6.6 x 4.5 cm - Myometrium: Possible leiomyoma measuring 1.1 cm in diameter near the fundus. - Cervix: 3.8 cm, closed with no funneling Gestation: - Intrauterine gestational sac: Not seen - Mean Sac Diameter: 1.32 cm, corresponding gestational age 6 week 0 days - Yolk sac: 0.28 cm - Embryo: Single present - Arial rump length: 0.38 cm, corresponding gestational age 6 weeks, 0 days -Gestational heart rate: present 121 bpm -Subgestational hematoma: Absent Right ovary: - Size : 4.1 x 2.8 x 2.8 cm - Normal sonographic appearance with physiologic follicles. Corpus luteum cyst measuring up to 3.0 cm in diameter. Left ovary: - Size: 2.9 x 2.0 x 1.3 cm - Normal sonographic appearance with physiologic follicles. Pelvis free fluid: Trace. IMPRESSION: Single, live intrauterine gestation. Estimated Gestational Age: 6 weeks, 0 days by crown rump length. Golf Range Attendant: JAMI Transcribe Date/Time: Sep 01 2024 11:45P Dictated by : TYE GARDNER MD This examination was interpreted and the report reviewed and electronically signed by: TYE GARDNER MD on Sep 02 2024 12:27AM EST [id number] [facility] US PREG TRANSVAG <14 WEEKSon 09-01-2024 US PREG TRANSVAG <14 WEEKS * * *Final Report* * * DATE OF EXAM: Sep 01 2024 10:02PM UDU 1035 - US PREG TRANSABD <14 WKS LTD / UDU 1034 - US PREG TRANSVAG <14 WEEKS / PROCEDURE REASON: Pelvic pain, positive beta-HCG, audit consultant etiology suspected * * * * Physician Interpretation * * * * EXAMINATION: FIRST TRIMESTER TRANSVAGINAL AND TRANSABDOMINAL PELVIC ULTRASOUND CLINICAL HISTORY: LMP / Beta hCG if available Otherwise Signs and Symptoms such as Vaginal bleeding / Pelvic pain TECHNIQUE: Sonography of the pelvis was performed by transabdominal and transvaginal techniques. Images were obtained and stored in a permanent archive. MQ: USOB1_1 COMPARISON: 11/23/2020. RESULT: Uterus: - Orientation: Anteverted - Size: 8.8 x 6.6 x 4.5 cm - Myometrium: Possible leiomyoma measuring 1.1 cm in diameter near the fundus. - Cervix: 3.8 cm, closed with no funneling Gestation: - Intrauterine gestational sac: Not seen - Mean Sac Diameter: 1.32 cm, corresponding gestational age 6 week 0 days - Yolk sac: 0.28 cm - Embryo: Single present - Arial rump length: 0.38 cm, corresponding gestational age 6 weeks, 0 days -Gestational heart rate: present 121 bpm -Subgestational hematoma: Absent Right ovary: - Size : 4.1 x 2.8 x 2.8 cm - Normal sonographic appearance with physiologic follicles. Corpus luteum cyst measuring up to 3.0 cm in diameter. Left ovary: - Size: 2.9 x 2.0 x 1.3 cm - Normal sonographic appearance with physiologic follicles. Pelvis free fluid: Trace. IMPRESSION: Single, live intrauterine gestation. Estimated Gestational Age: 6 weeks, 0 days by crown rump length. Golf Range Attendant: JAMI Transcribe Date/Time: Sep 01 2024 11:45P Dictated by : TYE GARDNER MD This examination was interpreted and the report reviewed and electronically signed by: TYE GARDNER MD on Sep 02 2024 12:27AM EST [id number] Normal [facility] Urinalysis complete panel (U )on 09-01-2024 Bacteria LM.HPF (Urine sed) [#/Area] Few Abnormal None Seen [facility] Comment on above: Order Comment: Speci men Type: URINE SPECIMEN Ordering Facility: [facility] Address: [address] [place] [address] Performed By: #### 2 4356-8 #### [facility] CLIA [id number] [address] [place] [address] [place] Bilirubin Ql (U) Negative Normal Negative [facility] Comment on above: Order Comment: Speci men Type: URINE SPECIMEN Ordering Facility: [facility] Address: [address] [place] [address] Performed By: #### 2 4356-8 #### [facility] CLIA [id number] [address] [place] [address] [place] Clarity (Unsp spec) Clear Normal Clear [facility] Comment on above: Order Comment: Speci men Type: URINE SPECIMEN Ordering Facility: [facility] Address: [address] [place] [address] Performed By: #### 2 4356-8 #### [facility] CLIA [id number] [address] [place] [address] [place] Color (U) Yellow Normal Yellow [facility] Comment on above: Order Comment: Speci men Type: URINE SPECIMEN Ordering Facility: [facility] Address: [address] [place] [address] Performed By: #### 2 4356-8 #### [facility] CLIA [id number] [address] [place] [address] [place] Epithelial cells LM.HPF (Urine sed) [#/Area] Few Normal [facility] Comment on above: Order Comment: Speci men Type: URINE SPECIMEN Ordering Facility: [facility] Address: [address] [place] [address] Performed By: #### 2 4356-8 #### [facility] CLIA [id number] [address] [place] [address] Glucose Test strip (U) [Mass/Vol] Negative Normal Negative [facility] Comment on above: Order Comment: Speci men Type: URINE SPECIMEN Ordering Facility: [facility] Address: [address] [place] [address] Performed By: #### 2 4356-8 #### [facility] CLIA [id number] [address] [place] [address] [place] Hemoglobin Ql (U) Negative Normal Negative [facility] Comment on above: Order Comment: Speci men Type: URINE SPECIMEN Ordering Facility: [facility] Address: [address] [place] [address] Performed By: #### 2 4356-8 #### [facility] CLIA [id number] [address] [place] [address] [place] Ketones Ql (U) Negative Normal Negative [facility] Comment on above: Order Comment: Speci men Type: URINE SPECIMEN Ordering Facility: [facility] Address: [address] [place] [address] Performed By: #### 2 4356-8 #### [facility] CLIA [id number] [address] [place] [address] [place] Leukocyte esterase Test strip Ql (U) Negative Normal Negative [facility] Comment on above: Order Comment: Speci men Type: URINE SPECIMEN Ordering Facility: [facility] Address: [address] [place] [address] Performed By: #### 2 4356-8 #### [facility] CLIA [id number] [address] [place] [address] [place] Nitrite Ql (U) Negative Normal Negative [facility] Comment on above: Order Comment: Speci men Type: URINE SPECIMEN Ordering Facility: [facility] Address: [address] [place] [address] Performed By: #### 2 4356-8 #### [facility] CLIA [id number] [address] [place] [address] [place] pH (U) 6.5 [pH] Normal 5.0-8.0 [facility] Comment on above: Order Comment: Speci men Type: URINE SPECIMEN Ordering Facility: [facility] Address: [address] [place] [address] Performed By: #### 2 4356-8 #### [facility] CLIA [id number] [address] [place] [address] [place] Protein (U) [Mass/Vol] Negative Normal Negative [facility] Comment on above: Order Comment: Speci men Type: URINE SPECIMEN Ordering Facility: [facility] Address: [address] [place] [address] Performed By: #### 2 4356-8 #### [facility] IA [id number] [address] [place] [address] [place] RBC LM.HPF (Urine sed) [#/Area] 0-3 /HPF Normal 0-3 /HPF [facility] Comment on above: Order Comment: Speci men Type: URINE SPECIMEN Ordering Facility: [facility] Address: [address] [place] [address] Performed By: #### 2 4356-8 #### [facility] IA [id number] [address] [place] [address] [place] Specific gravity (U) [Rel density] 1.020 Normal 1.005-1.030 [facility] Comment on above: Order Comment: Speci men Type: URINE SPECIMEN Ordering Facility: [facility] Address: [address] [place] [address] Performed By: #### 2 4356-8 #### [facility] CLIA [id number] [address] [place] [address] [place] Urobilinogen Ql (U) 0.2 EU/dL Normal 0.2-1.0 EU/dL [facility] Comment on above: Order Comment: Speci men Type: URINE SPECIMEN Ordering Facility: [facility] Address: [address] [place] [address] [place] [address] Performed By: #### 2 4356-8 #### [facility] CLIA [id number] [address] [place] [address] [place] WBC LM.HPF (Urine sed) [#/Area] 0-5 /HPF Normal 0-5 /HPF [facility] Comment on above: Order Comment: Speci men Type: URINE SPECIMEN Ordering Facility: [facility] Address[facility] [address] [place] [address] Performed By: #### 2 4356-8 #### [facility] CLIA [id number] [address] [place] [address] [facility] Alecia 08-24-2024 CNPN Telephone (OBGYWM) ----- MARZENA PICKERING ([id number]) 1990 [facility] Date Time Provider Department 08/24/24 MARLEE ALMANZA During your visit today, we recorded the following information about you: Anne-Marie Hartley RN 08/24/2024 2:53 PM Signed LMP 07/16/24 approximately 5w4d Patient called with c/o nausea. No vomiting. Asking for a prescription for Zofran. Discussed Vitamin B6 and Unisom as the first line choice. 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 Patient agreeable to trying the Vitamin B6. States she felt like she was going to pass out at work. Not eating very much with the nausea. Had some diarrhea recently, but not any longer. Scheduled patient for her NOB with [facility]. No need to call patient back unless provider has further recommendations. RON Vaca Jessica, APRN.CN 08/25/2024 9:47 AM Signed That is fine, can send zofran prescription if desires. Marlee Almanza APRN.[facility] Yeni Craig, RON 08/25/2024 10:16 AM Signed Patient notified. She declined Zofran for now, but will contact office if symptoms persist and she changes her mind. Yeni Craig RN Allergies As of Date: 08/24/2024 Noted Allergy Reaction TREE NUTS 05/19/2020 4 - Hives Comments: Occasionally gets hives when she eats cashews and almonds Date Reviewed: 01/31/2024 Reviewed by: Lorena Malhotra MA - Fully Assessed Reason for Visit: Question (OB Question) [8422] Prescriptions as of 08/25/2024 - buPROPion SR (WELLBUTRIN SR) 100 mg 12 hr tablet Take 1 tablet by mouth daily with breakfast. - sertraline (ZOLOFT) 100 mg tablet Take 1 and 1/2 tablets by mouth once daily. - multivit no.38-folate 6-patito (PRENATE AM) 1-500 mg tab (Discontinued) Take 1 tablet by mouth once daily. 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] 05/19/2020 Family history of Cleveland-Sachs disease [Z83.49] 05/19/2020 04/23/2021 Family history of defects [Z82.79] 05/19/2020 labor in third trimester without delive*11/28/2020 02/07/2021 Encounter for supervision of normal i*12/26/2020 02/17/2021 ASCUS of cervix with negative high risk HPV [R8*02/17/2021 Short interval between pregnancies affecting pr*04/13/2021 12/26/2021 Supervision of high risk , antepartum *04/13/2021 12/26/2021 Patient request for diagnostic testing [Z01.89] 04/13/2021 12/26/2021 Vaginal yeast infection [B37.31] 04/15/2021 12/26/2021 History of labor [Z87.51] 04/23/2021 Maternal iron deficiency anemia affecting pregn*09/15/2021 12/26/2021 contractions [O47.00] 10/06/2021 12/26/2021 GUIDO (generalized anxiety disorder) [F41.1] 11/02/2022 Encounter Status:Closed by YENI CRAIG on 08/25/24 [facility] CNPNon 08-14-2024 CNPN Telephone (PSWSTR) ----- MARZENA PICKERING ([id number]) 1990 [facility] Date Time Provider Department 08/14/24 SAMARIA HAJI PSWSTR During your visit today, we recorded the following information about you: Christel Thompson, RN 08/14/2024 11:35 AM Signed Pt calling in to let Samaria Marlyn know that she recently found out she is -newly as LMP end of June. Pt states she is planning on staying on her Zoloft as she has been on it with her other pregnancies. Pt also states that she wanted to let Samaria know that she thinks she is on the right strength of Zoloft too. Pt is wondering what to do about the Wellbutrin? Pt is leaving for [place] today-her flight leaves at 220 pm today. States okay to leave a detailed voicemail. Samaria Haji APRN.MOLD CARRIER 08/14/2024 11:48 AM Signed Spoke with the patient about her . Discussed consideration around Wellbutrin and . Patient does plan to breastfeed. She has noticed tremors at the current dose of Wellbutrin 200 mg SR. We discussed lowering the dose to 100 mg SR for now until the appointment scheduled with this provider in August. We will discuss other treatment options with considerations to and at that appointment. Marlee Almanza APRN.CNM 08/17/2024 1:30 PM Signed Noted and will follow up with patient at her appointment. Thank you, Marlee Almanza APRN.CNM Allergies As of Date: 08/14/2024 Noted Allergy Reaction TREE NUTS 05/19/2020 4 - Hives Comments: Occasionally gets hives when she eats cashews and almonds Date Reviewed: 01/31/2024 Reviewed by: Lorena Malhotra MA - Fully Assessed Reason for Visit: Medication Question [4288] Order(s):buPROPion SR (WELLBUTRIN SR) 100 mg 12 hr tabletTake 1 tablet by mouth daily with breakfast.Disp: 30 tabletRfl: 0 Prescriptions as of 08/19/2024 - buPROPion SR (WELLBUTRIN SR) 100 mg 12 hr tablet Take 1 tablet by mouth daily with breakfast. - sertraline (ZOLOFT) 100 mg tablet Take 1 and 1/2 tablets by mouth once daily. - multivit no.38-folate 6-patito (PRENATE AM) 1-500 mg tab (Discontinued) Take 1 tablet by mouth once daily. 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 Family history of Cleveland-Sachs disease [Z83.49] 05/19/2020 04/23/2021 Family history of defects [Z82.79] 05/19/2020 labor in third trimester without delive*11/28/2020 02/07/2021 Encounter for supervision of normal i*12/26/2020 02/17/2021 ASCUS of cervix with negative high risk HPV [R8*02/17/2021 Short interval between pregnancies affecting pr*04/13/2021 12/26/2021 Supervision of high risk , antepartum *04/13/2021 12/26/2021 Patient request for diagnostic testing [Z01.89] 04/13/2021 12/26/2021 Vaginal yeast infection [B37.31] 04/15/2021 12/26/2021 History of labor [Z87.51] 04/23/2021 Maternal iron deficiency anemia affecting pregn*09/15/2021 12/26/2021 contractions [O47.00] 10/06/2021 12/26/2021 GUIDO (generalized anxiety disorder) [F41.1] 11/02/2022 Prescriptions ordered this encounter Disp Refills Start End BUPROPION HCL SR 100 MG TABLET,12 HR* 30 t* 0 08/14/2024 09/13/2024 Route: ORAL Sig: Take 1 tablet by mouth daily with breakfast. Medications Discontinued During This Encounter Prescriptions - buPROPion SR (WELLBUTRIN SR) 200 mg 12 hr tablet (Discontinued) Take 1 tablet by mouth daily with breakfast. Encounter Status:Closed by CHRISTEL THOMPSON on 08/19/24 Normal [facility] HCG QUANTITATIVEOrdered By: Kimmy Hagen on 12-19-2023 [facility]CG.beta subunit [facility]n [facility] Comment on above: Negative HCG.beta subunit QnOrdered B y: Kimmy Hagen on 12-19-2023 Interpretation and review of laboratory results Normal [facility] TRIXIE/TRICHOMONAS NAATon 0 01-03-2023 C. glabrata RNA NIGHAT+probe Ql (Vag fld) Negative Negative for Trixie glabrata [facility] Trixie sp DNA NIGHAT+probe Ql (Vag fld) Positive Abnormal Negative for Trixie species [facility] T. vaginalis DNA NIGHAT+probe Ql (Unsp spec) Negative Negative for Trichomonas vaginalis by amplification [facility] Bacteria identified Cx Nom ( Throat)on 12-20-2022 Culture Result XXX [facility] RAPID STREP TEST B/Oon 12-17 Quality Check Yes [facility] S. pyogenes Ag IA Ql (Unsp spec) Negative neg - pos [facility] THROAT CULTUREon 12-17-2022 Throat culture CULTURE, THROAT No Streptococcus pyogenes (Group A streptococcus) isolated. SOURCE: THROAT SWAB Test Performed By: [facility] [address] [place] [address] Cane Packer: Kamlesh Herrera III, M.D. See Below Normal [facility] .GFRon 05-15-2022 GFR Non- 88 ml/min/1.73sqm Normal [facility] ([place]) Comment on above: Result Comment: GFR Population mean for , Non- Americans Ages 20-29 = 116 mL/min/1.73 sq.m. Ages 30-39 = 107 mL/min/1.73 sq.m. Ages 40-49 = 99 mL/min/1.73 sq.m. Ages 50-59 = 93 mL/min/1.73 sq.m. Ages 60-69 = 85 mL/min/1.73 sq.m. Ages 70+ = 75 mL/min/1.73 sq.m. Chronic Kidney Disease: Less than 60 mL/min/1.73 square meters End Stage Renal Disease: Less than 15 mL/min/1.73 square meters Performed By: #### R DAVISEO HBSAB VARIS RUBFRANK #### [address] [address] GFR 107 ml/min/1.73sqm Normal [facility] ([place]) Comment on above: Result Comment: GFR Population mean for , Non- Americans Ages 20-29 = 116 mL/min/1.73 sq.m. Ages 30-39 = 107 mL/min/1.73 sq.m. Ages 40-49 = 99 mL/min/1.73 sq.m. Ages 50-59 = 93 mL/min/1.73 sq.m. Ages 60-69 = 85 mL/min/1.73 sq.m. Ages 70+ = 75 mL/min/1.73 sq.m. Chronic Kidney Disease: Less than 60 mL/min/1.73 square meters End Stage Renal Disease: Less than 15 mL/min/1.73 square meters Performed By: #### Jean Carlos ARAIZA HBSSANA PUENTE RUBFRANK #### [address] [address] CMPon 05-15-2022 Albumin Level 4.4 G/dL Normal 3.5-5.0 [facility] ([place]) Comment on above: Performed By: #### Jean Carlos ARAIZA HBSABSANA RUBFRANK #### [address] [address] Albumin/Globulin [Mass ratio] 1.4 {ratio} Normal 1.1-2.5 [facility] ([place]) Comment on above: Performed By: #### Jean Carlos CANNONEO, HBSAB, VARIS, RUBIS #### [address] [address] ALP [Catalytic activity/Vol] 70 U/L Normal 40-135 [facility] ([place]) Comment on above: Performed By: #### R UBEO, HBSAB, VARIS, RUBIS #### [address] [address] ALT [Catalytic activity/Vol] 18 U/L Normal 14-59 [facility] ([place]) Comment on above: Performed By: #### R UBEO, HBSAB, VARIS, RUBIS #### [address] [address] AST [Catalytic activity/Vol] 16 U/L Normal 10-40 [facility] ([place]) Comment on above: Performed By: #### R UBEO, HBSAB, VARIS, RUBIS #### [place] [id number] Bili Total 0.6 mg/dL Normal 0.2-1.0 [facility] ([place]) Comment on above: Result Comment: Use of this assay is not recommended for patients undergoing treatment with eltrombopag due to the potential for falsely elevated results. Performed By: #### R UBEO, HBSAB, VARIS, RUBIS #### [place] [id number] BUN/Creatinine Ratio 14 ratio Normal 7-27 [facility] ([place]) Comment on above: Performed By: #### R UBEO, HBSAB, VARIS, RUBIS #### [place] [id number] Calcium [Mass/Vol] 9.4 mg/dL Normal 8.4-10.2 [facility] ([place]) Comment on above: Performed By: #### R UBEO, HBSAB, VARIS, RUBIS #### [place] [id number] Chloride [Moles/Vol] 102 mmol/L Normal 98-107 [facility] ([place]) Comment on above: Performed By: #### R UBEO, HBSAB, VARIS, RUBIS #### [address] [address] CO2 [Moles/Vol] 26 mmol/L Normal 22-29 [facility] ([place]) Comment on above: Performed By: #### R UBEO, HBSAB, VARIS, RUBIS #### [address] [address] Creatinine [Mass/Vol] 0.77 mg/dL Normal 0.55-1.02 [facility] ([place]) Comment on above: Performed By: #### R UBEO, HBSAB, VARIS, RUBIS #### [address] [address] Electrolyte Balance 12.0 mEq/L Normal 4.0-15.0 [facility] ([place]) Comment on above: Performed By: #### R UBEO, HBSAB, VARIS, RUBIS #### [address] [address] Globulin 3.2 G/dL Normal [facility] ([place]) Comment on above: Performed By: #### R UBEO, HBSAB, VARIS, RUBIS #### [address] [address] Glucose [Mass/Vol] 81 mg/dL Normal 70-105 [facility] ([place]) Comment on above: Performed By: #### R UBEO, HBSAB, VARIS, RUBIS #### [address] [address] Potassium [Moles/Vol] 4.1 mmol/L Normal 3.5-5.1 [facility] ([place]) Comment on above: Performed By: #### R UBEO, HBSAB, VARIS, RUBIS #### [address] [address] Sodium [Moles/Vol] 140 mmol/L Normal 136-145 [facility] ([place]) Comment on above: Performed By: #### R UBEO, HBSAB, VARIS, RUBIS #### [address] [address] Total Protein 7.6 G/dL Normal 6.4-8.2 [facility] ([place]) Comment on above: Performed By: #### R UBEO, HBSAB, VARIS, RUBIS #### [address] [address] Urea nitrogen [Mass/Vol] 11 mg/dL Normal 7-18 [facility] ([place]) Comment on above: Performed By: #### R UBEO, HBSAB, VARIS, RUBIS #### [address] [address] LIPIDon 05-15-2022 Cholesterol [Mass/Vol] 162 mg/dL Normal 0-200 [facility] ([place]) Comment on above: Result Comment: Chol esterol Reference Interval: Less than 200 Desirable 200-239 Borderline high risk 240 and above High risk Performed By: #### L IPID, CMP, GFR #### [address] [address] Cholesterol in HDL [Mass/Vol] 74 mg/dL High 40-60 [facility] ([place]) Comment on above: Performed By: #### L IPID, CMP, GFR #### [address] [address] Cholesterol in LDL [Mass/Vol] 78 mg/dL Normal 0-130 [facility] ([place]) Comment on above: Performed By: #### L IPID, CMP, GFR #### [address] [address] Triglyceride [Mass/Vol] 49 mg/dL Normal 0-150 [facility] ([place]) Comment on above: Result Comment: Trig lyceride Reference Interval: Less than 150 Normal 150-199 Borderline high risk 200-499 High risk 500 or higher Very high risk Performed By: #### L IPID, CMP, GFR #### [address] [address] Absolute lymphocyte counton 11-16-2021 Lymphocytes Auto (Unsp spec) [#/Vol] 2.29 10*3/uL 0.83-4.51 [facility] Work Phone: Basophil percentageon 2021 Basophils/100 WBC (Bld) 0.1 % 0-1 [facility] Work Phone: Eosinophils/100 WBC (Bld) 0.5 % 0-5 [facility] Work Phone: [phone] Neutrophils (Bld) [#/Vol] 12.2 10*3/uL 2.0-7.7 [facility] Work Phone: Neutrophils/100 WBC (Bld) 78.2 % 47-70 [facility] Work Phone: WBC (Bld) [#/Vol] 15.6 10*3/uL 4.4-11.0 [facility] Work Phone: [phone] Blood erythrocytes count (nu mber/volume)on 11-16-2021 RBC (Bld) [#/Vol] 3.71 10*6/uL 4.2-5.4 [facility] Work Phone: [phone] Blood hemoglobin measurement (mass/volume)on 11-16-2021 Hemoglobin (Bld) [Mass/Vol] 11.3 g/dL 12.0-15.0 [facility] Work Phone: Blood lymphocytes/100 leukoc yteson 11-16-2021 Lymphocytes/100 WBC (Bld) 14.7 % 19-41 [facility] Work Phone: Blood monocytes/100 leukocyt eson 11-16-2021 Monocytes/100 WBC (Bld) 5.9 % 0-10 [facility] Work Phone: Blood platelet mean volumeon 11-16-2021 Platelet mean volume (Bld) [Entitic vol] 10.6 fL 6.2-12.0 [facility] Work Phone: Determination of erythrocyte mean corpuscular volume (MCV)on 11-16-2021 MCV (RBC) [Entitic vol] 89.2 fL 81-99 [facility] Work Phone: [phone] Hematocrit Auto (Bld) [Volum e fraction]on 11-16-2021 Hematocrit (Bld) [Volume fraction] 33.1 % 37-47 [facility] Work Phone: Laboratory - Hematology and Cell countson 11-16-2021 Erythrocyte distribution width (RBC) [Entitic vol] 43.8 fL 35.1-43.9 [facility] Work Phone: Erythrocyte distribution width (RBC) [Ratio] 13.4 % 11.6-14.6 [facility] Work Phone: [phone] Immature granulocytes/100 WBC (Bld) 0.600 % 0.0-0.9 [facility] Work Phone: Comment on above: IG% - Immature Granu locytes (promyelocytes, myelocytes and metamyelocytes) > 1% indicates that a LEFT SHIFT is Present. MCH (RBC) [Entitic mass] 30.5 pg 27.0-32.0 [facility] Work Phone: Nucleated RBC/100 WBC (Bld) [Ratio] 0 % 0-5 [facility] Work Phone: MCHC Auto (RBC) [Mass/Vol]on 11-16-2021 MCHC (RBC) [Mass/Vol] 34.1 g/dL 32-36 [facility] Work Phone: Platelets bldon 11-16-2021 Platelets (Bld) [#/Vol] 273 10*3/uL 150-450 [facility] Work Phone: URINE OB DIP B/Oon 2 Glucose Ql (U) Negative Neg mg/dL [facility] Protein.monoclonal (U) [Mass/Vol] Negative Neg mg/dL [facility] Culture, urineon 11-08-2021 Bacteria identified Cx Nom (U) Presumptive C albicans [facility] Work Phone: Bacteria identified Cx Nom (U) Positive [facility] Work Phone: Basophil percentageon 2021 Basophil percentage 5-10 SEEN /hpf [facility] Work Phone: Bilirubin Test strip Ql (U)o n 11-07-2021 Bilirubin Ql (U) Negative Negative [facility] Work Phone: Ketones Test strip Ql (U)on 11-07-2021 Ketones Ql (U) Negative Negative [facility] Work Phone: Mucus LM Ql (Urine sed)on Mucus Ql (Urine sed) 0 SEEN /hpf [facility] Work Phone: Nitrite Test strip Ql (U)on 11-07-2021 Nitrite Ql (U) Negative Negative [facility] Work Phone: No Panel Informationon 11-07 Vaginal Amniotic Fluid Detection Negative Negative [facility] Work Phone: Comment on above: Amniotic fluid not p resent indicates No Rupture of FetalMembranes at time of specimen collection. Protein Test strip Ql (U)on 11-07-2021 Protein Ql (U) Negative Negative [facility] Work Phone: Squamous epithelial cells de tection in urine sediment by light microscopyon 11-07-2021 Epithelial cells.squamous LM Ql (Urine sed) 5-10 SEEN /hpf [facility] Work Phone: Urine blood detectionon 10-14 RBC Ql (U) 150 /ul Negative [facility] Work Phone: RBC Ql (U) 0-5 SEEN /hpf [facility] Work Phone: Urine clarityon 11-07-2021 Clarity (U) Sl. Cloudy Clear [facility] Work Phone: Urine color determinationon 11-07-2021 Color (U) Yellow Yellow [facility] Work Phone: Urine glucose detectionon Glucose Ql (U) Normal mg/dl Normal [facility] Work Phone: Urine leukocyte esterase det ection by dipstickon 11-07-2021 Leukocyte esterase Test strip Ql (U) 500 /ul Negative [facility] Work Phone: Urine pHon 11-07-2021 pH (U) 6.5 [pH] [facility] Work Phone: Urine sediment bacteria coun t by microscopy (number/high power field)on 11-07-2021 Bacteria LM.HPF (Urine sed) [#/Area] 1 /[HPF] None Seen [facility] Work Phone: Urine specific gravity measu rementon 11-07-2021 Specific gravity (U) [Rel density] 1.010 [facility] Work Phone: Urobilinogen Auto test strip Ql (U)on 11-07-2021 Urobilinogen Ql (U) Normal mg/dl Normal [facility] Work Phone: URINE OB DIP B/Oon Glucose Ql (U) Negative Neg mg/dL [facility] Protein.monoclonal (U) [Mass/Vol] Negative Neg mg/dL [facility] AMNISUREon 10-28-2021 AMNISURE Negative Normal NEGATIVE [facility] Comment on above: Performed By: #### L 200.6000 #### [facility] [address] [place] [address] AMNISURE ROM (UNION)on 10-28 AMINSURE Negative NEGATIVE [facility] URINALYSISon 10-28-2021 Bilirubin Ql (U) Negative Normal NEGATIVE [facility] Comment on above: Performed By: #### L 200.3000, L200.3190 #### [facility] [address] [place] [address] Color (U) YELLOW Normal YELLOW [facility] Comment on above: Performed By: #### L 200.3000, L200.3190 #### [facility] [address] [place] [address] Glucose Ql (U) Negative Normal NEGATIVE [facility] Comment on above: Performed By: #### L 200.3000, L200.3190 #### [facility] [address] [place] [address] Hemoglobin Ql (U) Negative Normal NEGATIVE [facility] Comment on above: Performed By: #### L 200.3000, L200.3190 #### [facility] [address] [place] [address] Leukocyte esterase Test strip Ql (U) SMALL Normal NEGATIVE [facility] Comment on above: Performed By: #### L 200.3000, L200.3190 #### [facility] [address] [place] [address] Nitrite Ql (U) Negative Normal NEGATIVE [facility] Comment on above: Performed By: #### L 200.3000, [id number] #### [facility] [address] [place] [address] pH (U) 6.5 [pH] Normal 5.0-8.0 [facility] Comment on above: Performed By: #### L 200.3000, L200.3190 #### [facility] [address] [place] [address] Protein Ql (U) Negative Normal NEGATIVE [facility] Comment on above: Performed By: #### L 200.3000, L200.3190 #### [facility] [address] [place] [address] URINE APPEARANC CLEAR Normal CLEAR [facility] Comment on above: Performed By: #### L 200.3000, L200.3190 #### [facility] [address] [place] [address] URINE KETONE Negative Normal NEGATIVE [facility] Comment on above: Performed By: #### L 200.3000, L200.3190 #### [facility] [address] [place] [address] URINE SPECIFIC <=1.005 Normal 1.001-1.035 [facility] Comment on above: Performed By: #### L 200.3000, L200.3190 #### [facility] [address] [place] [address] URINE UROBILINO 0.2 EU/DL Normal 0.2-1.0 [facility] Comment on above: Performed By: #### L 200.3000, L200.3190 #### [facility] [address] [place] [address] URINALYSIS, DIPSTICK ONLYon 10-28-2021 Appearance (U) CLEAR CLEAR [facility] Bilirubin, Urine Negative NEGATIVE [facility] Blood, Urine Negative NEGATIVE [facility] Color (U) YELLOW YELLOW [facility] Glucose Ql (U) Negative NEGATIVE MG/DL [facility] Ketones Ql (U) Negative NEGATIVE MG/DL [facility] Leukocytes SMALL NEGATIVE [facility] Nitrites Urine Negative NEGATIVE [facility] pH (U) 6.5 [pH] 5.0 - 8.0 [facility] Protein.monoclonal (U) [Mass/Vol] Negative NEGATIVE MG/DL [facility] Specific [place], Ur <=1.005 1.001 - 1.035 [facility] Urobilinogen, Urine 0.2 EU/DL 0.2 - 1. 0 EU/DL [facility] URINE MICROSCOPon 10-28-2021 SQUAMOUS MOD Normal NEGATIVE [facility] Comment on above: Performed By: #### L 200.3000, L200.3190 #### [facility] [address] [place] [address] URINE BACTERIA 1+ Normal NEGATIVE [facility] Comment on above: Performed By: #### L 200.3000, L200.3190 #### [facility] [address] [place] [address] URINE RBC 0-2 Normal 0-2 [facility] Comment on above: Performed By: #### L 200.3000, L200.3190 #### [facility] [address] [place] [address] URINE WBC 10-20 Normal 0-5 [facility] Comment on above: Performed By: #### L 200.3000, L200.3190 #### [facility] [address] [place] [address] Urinalysis complete panel (U )on 10-28-2021 Bacteria, Urine 1+ NEGATIVE [facility] RBC, Urine 0-2 0 - 2 [facility] Squamous Epithelial Cells MOD NEGATIVE [facility] WBC, Urine 10-20 0 - 5 [facility] URINE OB DIP B/Oon Glucose Ql (U) Negative Neg mg/dL [facility] Protein.monoclonal (U) [Mass/Vol] Negative Neg mg/dL [facility] RPRon 10-24-2021 Reagin Ab RPR Ql (S) Non-Reactive Normal Non-Reactive [facility] ([place]) Comment on above: Result Comment: The RPR test is a non-treponemal assay useful as an aid in the diagnosis of primary and secondary syphilis. It converts to positive generally within 2 weeks after the appearance of a lesion. This test is also useful for monitoring response to antibiotic therapy. A positive RPR screening test will be followed by the FTA ABS test. False positive RPR tests may occur in 1) patients with underlying autoimmune disorders, 2) elderly patients, 3) , and 4) other conditions with abnormal serum globulins. Performed By: #### R MO #### [address] [address] .Auto Diffon 10-22-2021 Basophil, Absolute 0.00 10 3/mcL Normal 0.00-0.27 [facility] ([place]) Comment on above: Performed By: #### R UBEO, HBSAB, VARIS, RUBIS #### [address] [address] Basophils/100 WBC (Bld) 0.1 % Normal 0.0-2.5 [facility] ([place]) Comment on above: Performed By: #### R UBEO, HBSAB, VARIS, RUBIS #### [address] [address] Eosinophil, Absolute 0.00 10 3/mcL Normal 0.00-0.65 [facility] ([place]) Comment on above: Performed By: #### R UBEO, HBSAB, VARIS, RUBIS #### [address] [address] Eosinophils/100 WBC (Bld) 0.0 % Normal 0.0-6.0 [facility] ([place]) Comment on above: Performed By: #### R UBEO, HBSAB, VARIS, RUBIS #### [address] [address] Lymphocyte, Absolute 1.40 10 3/mcL Normal 0.90-4.32 [facility] ([place]) Comment on above: Performed By: #### R UBEO, HBSAB, VARIS, RUBIS #### [address] [address] Lymphocytes/100 WBC (Bld) 10.7 % Low 20.0-40.0 [facility] ([place]) Comment on above: Performed By: #### R UBEO, HBSAB, VARIS, RUBIS #### [address] [address] Monocyte, Absolute 0.90 10 3/mcL Normal 0.09-1.40 [facility] ([place]) Comment on above: Performed By: #### R UBEO, HBSAB, VARIS, RUBIS #### [address] [address] Monocytes/100 WBC (Bld) 6.7 % Normal 2.0-13.0 [facility] ([place]) Comment on above: Performed By: #### R UBEO, HBSAB, VARIS, RUBIS #### [address] [address] Neutrophils/100 WBC (Bld) 82.5 % High 50.0-75.0 [facility] ([place]) Comment on above: Performed By: #### R UBEO, HBSAB, VARIS, RUBIS #### [address] [address] Basophil, Absolute 0.00 10 3/mcL Normal 0.00-0.27 [facility] ([place]) Comment on above: Performed By: #### A LOUISAILYNIFF, CBC #### [address] [address] Basophils/100 WBC (Bld) 0.1 % Normal 0.0-2.5 [facility] ([place] Comment on above: Performed By: #### A LOUIS, ADIFF, CBC #### [address] [address] Eosinophil, Absolute 0.00 10 3/mcL Normal 0.00-0.65 [facility] ([place]) Comment on above: Performed By: #### A LOUIS, ADIFF, CBC #### [address] [address] Lymphocyte, Absolute 1.40 10 3/mcL Normal 0.90-4.32 [facility] ([place]) Comment on above: Performed By: #### A SUZETTE MYERS, CBC #### [address] [address] Monocyte, Absolute 0.20 10 3/mcL Normal 0.09-1.40 [facility] ([place]) Comment on above: Performed By: #### A AILYN MYERSIFF, CBC #### [address] [address] .Auto DiffOrdered By: SYSTEM SYSTEM on 10-22-2021 Eosinophils/100 WBC (Bld) 0.1 % Normal 0.0-6.0 [facility] Comment on above: Performed By: #### A SUZETTE MYERS, CBC #### [address] [address] Lymphocytes/100 WBC (Bld) 14.4 % Low 20.0-40.0 [facility] Comment on above: Performed By: #### A SUZETTE MYERS, CBC #### [address] [address] Monocytes/100 WBC (Bld) 1.9 % Low 2.0-13.0 [facility] Comment on above: Performed By: #### A SUZETTE MYERS, CBC #### [address] [address] Neutrophils/100 WBC (Bld) 83.5 % High 50.0-75.0 [facility] Comment on above: Performed By: #### A SUZETTE MYERS, CBC #### [address] [address] .NEUABSon 10-22-2021 Neutrophil, Absolute 10.60 10 3/mcL High 2.25-8.10 [facility] ([place]) Comment on above: Performed By: #### R UBEO, HBSAB, VARIS, RUBIS #### [address] [address] Neutrophil, Absolute 8.00 10 3/mcL Normal 2.25-8.10 [facility] ([place]) Comment on above: Performed By: #### A LOUISSUZETTE, CBC #### [address] [address] CBCon 10-22-2021 Erythrocyte distribution width (RBC) [Ratio] 12.7 % Normal 11.5-15.5 [facility] ([place]) Comment on above: Performed By: #### R UBEO, HBSAB, VARIS, RUBIS #### [place] [address] Hematocrit (Bld) [Volume fraction] 27.3 % Low 34.0-46.0 [facility] ([place]) Comment on above: Performed By: #### R UBEO, HBSAB, VARIS, RUBIS #### [place] [address] Hgb 9.3 G/dL Low 12.0-16.0 [facility] ([place] Comment on above: Performed By: #### R UBEO, HBSAB, VARIS, RUBIS #### [place] [address] MCH (RBC) [Entitic mass] 30.3 pg Normal 27.0-33.0 [facility] ([place] Comment on above: Performed By: #### R UBEO, HBSAB, VARIS, RUBIS #### [place] [address] MCHC 34.0 G/dL Normal 32.0-36.0 [facility] ([place] Comment on above: Performed By: #### R UBEO, HBSAB, VARIS, RUBIS #### [place] [address] MCV (RBC) [Entitic vol] 89.1 fL Normal 80.0-99.0 [facility] ([place]) Comment on above: Performed By: #### R UBEO, HBSAB, VARIS, RUBIS #### [place] [address] Platelet 257 10 3/mcL Normal 150-450 [facility] ([place]) Comment on above: Performed By: #### R UBEO, HBSAB, VARIS, RUBIS #### [place] [address] Platelet mean volume (Bld) [Entitic vol] 8.7 fL Normal 6.6-10.5 [facility] ([place] Comment on above: Performed By: #### R STANLEY ARAIZA VARIS, RUBIS #### [address] [address] RBC 3.07 10 6/mcL Low 4.10-5.30 [facility] ([place] Comment on above: Performed By: #### R STANLEY ARAIZA VARIS, RUBIS #### [place] [address] WBC 12.80 10 3/mcL High 4.50-10.80 [facility] ([place] Comment on above: Performed By: #### R JOSE G HBSSANA PUENTE RUBIS #### [place] [address] Hgb 9.8 G/dL Low 12.0-16.0 [facility] ([place] Comment on above: Performed By: #### A SUZETTE MYERS, CBC #### [address] [address] MCHC 35.0 G/dL Normal 32.0-36.0 [facility] ([place] Comment on above: Performed By: #### A SUZETTE MYERS, CBC #### [address] [address] Platelet 230 10 3/mcL Normal 150-450 [facility] ([place] Comment on above: Performed By: #### A SUZETTE MYERS, CBC #### [place] [address] RBC 3.15 10 6/mcL Low 4.10-5.30 [facility] ([place] Comment on above: Performed By: #### A SUZETTE MYERS, CBC #### [place] [id number] WBC 9.50 10 3/mcL Normal 4.50-10.80 [facility] ([place] Comment on above: Performed By: #### A SUZETTE MYERS, CBC #### [place] [address] CBCOrdered By: SYSTEM SYSTEM on 10-22-2021 Erythrocyte distribution width (RBC) [Ratio] 12.9 % Normal 11.5-15.5 [facility] Comment on above: Performed By: #### A SUZETTE MYERS, CBC #### [place] [address] Hematocrit (Bld) [Volume fraction] 27.9 % Low 34.0-46.0 [facility] Comment on above: Performed By: #### A SUZETTE MYERS, CBC #### [place] [address] MCH (RBC) [Entitic mass] 31.0 pg Normal 27.0-33.0 [facility] Comment on above: Performed By: #### A SUZETTE MYERS, CBC #### [place] [address] MCV (RBC) [Entitic vol] 88.5 fL Normal 80.0-99.0 [facility] Comment on above: Performed By: #### A SUZETTE MYERS, CBC #### [place] [address] Platelet mean volume (Bld) [Entitic vol] 8.8 fL Normal 6.6-10.5 [facility] Comment on above: Performed By: #### A SUZETTE MYERS, CBC #### [place] [address] LABORATORYOrdered By: SYSTEM SYSTEM on 10-22-2021 Eosinophils/100 WBC (Bld) 0.0 % Invalid Interpretation Code 0.0 - 6.0 % [facility] Erythrocyte distribution width (RBC) [Ratio] 12.7 % Invalid Interpretation Code 11.5 - 15.5 % [facility] Hematocrit (Bld) [Volume fraction] 27.3 % Invalid Interpretation Code 34.0 - 46.0 % [facility] Hemoglobin (Bld) [Mass/Vol] 9.3 G/dL Invalid Interpretation Code 12.0 - 16.0 G/dL [facility] Lymphocytes/100 WBC (Bld) 10.7 % Invalid Interpretation Code 20.0 - 40.0 % [facility] MCH (RBC) [Entitic mass] 30.3 pg Invalid Interpretation Code 27.0 - 33.0 pg [facility] MCHC (RBC) [Mass/Vol] 34.0 G/dL Invalid Interpretation Code 32.0 - 36.0 G/dL [facility] MCV (RBC) [Entitic vol] 89.1 fL Invalid Interpretation Code 80.0 - 99.0 fL [facility] Monocytes (Bld) [#/Vol] 0.90 103/mcL Invalid Interpretation Code 0.09 - 1.40 10^3/mcL [facility] Monocytes/100 WBC (Bld) 6.7 % Invalid Interpretation Code 2.0 - 13.0 % [facility] Neutrophils (Bld) [#/Vol] 10.60 103/mcL Invalid Interpretation Code 2.25 - 8.10 10^3/mcL [facility] Neutrophils/100 WBC (Bld) 82.5 % Invalid Interpretation Code 50.0 - 75.0 % [facility] Platelet mean volume (Bld) [Entitic vol] 8.7 fL Invalid Interpretation Code 6.6 - 10.5 fL [facility] Platelets (Bld) [#/Vol] 257 103/mcL Invalid Interpretation Code 150 - 450 10^3/mcL [facility] RBC (Bld) [#/Vol] 3.07 106/mcL Invalid Interpretation Code 4.10 - 5.30 10^6/mcL [facility] WBC (Bld) [#/Vol] 12.80 103/mcL Invalid Interpretation Code 4.50 - 10.80 10^3/mcL [facility] Hemoglobin (Bld) [Mass/Vol] 9.8 G/dL Invalid Interpretation Code 12.0 - 16.0 G/dL [facility] MCHC (RBC) [Mass/Vol] 35.0 G/dL Invalid Interpretation Code 32.0 - 36.0 G/dL [facility] Monocytes (Bld) [#/Vol] 0.20 103/mcL Invalid Interpretation Code 0.09 - 1.40 10^3/mcL [facility] Neutrophils (Bld) [#/Vol] 8.00 103/mcL Invalid Interpretation Code 2.25 - 8.10 10^3/mcL [facility] Platelets (Bld) [#/Vol] 230 103/mcL Invalid Interpretation Code 150 - 450 10^3/mcL [facility] RBC (Bld) [#/Vol] 3.15 106/mcL Invalid Interpretation Code 4.10 - 5.30 10^6/mcL [facility] WBC (Bld) [#/Vol] 9.50 103/mcL Invalid Interpretation Code 4.50 - 10.80 10^3/mcL [facility] Laboratory - Hematology and Cell countsOrdered By: SYSTEM SYSTEM on 10-22-2021 Basophils (Bld) [#/Vol] 0.00 103/mcL Invalid Interpretation Code 0.00 - 0.27 10^3/mcL [facility] Basophils/100 WBC (Bld) 0.1 % Invalid Interpretation Code 0.0 - 2.5 % [facility] Eosinophils (Bld) [#/Vol] 0.00 103/mcL Invalid Interpretation Code 0.00 - 0.65 10^3/mcL [facility] Lymphocytes (Bld) [#/Vol] 1.40 103/mcL Invalid Interpretation Code 0.90 - 4.32 10^3/mcL [facility] .Auto Diffon 10-21-2021 Basophil, Absolute 0.00 10 3/mcL Normal 0.00-0.27 [facility] ([place]) Comment on above: Performed By: #### Jean Carlos UBEO, HBSAB, VARIS, RUBIS #### [address] [address] Basophils/100 WBC (Bld) 0.3 % Normal 0.0-2.5 [facility] ([place]) Comment on above: Performed By: #### Jean Carlos UBEO, HBSAB, VARIS, RUBIS #### [address] [address] Eosinophil, Absolute 0.00 10 3/mcL Normal 0.00-0.65 [facility] ([place]) Comment on above: Performed By: #### R UBEO, HBSAB, VARIS, RUBIS #### [address] [address] Eosinophils/100 WBC (Bld) 0.3 % Normal 0.0-6.0 [facility] ([place]) Comment on above: Performed By: #### R UBEO, HBSAB, VARIS, RUBIS #### [address] [address] Lymphocyte, Absolute 2.40 10 3/mcL Normal 0.90-4.32 [facility] ([place]) Comment on above: Performed By: #### R UBEO, HBSAB, VARIS, RUBIS #### [address] [address] Lymphocytes/100 WBC (Bld) 18.1 % Low 20.0-40.0 [facility] ([place]) Comment on above: Performed By: #### R UBEO, HBSAB, VARIS, RUBIS #### [address] [address] Monocyte, Absolute 0.70 10 3/mcL Normal 0.09-1.40 [facility] ([place]) Comment on above: Performed By: #### R UBEO, HBSAB, VARIS, RUBIS #### [address] [address] Monocytes/100 WBC (Bld) 4.9 % Normal 2.0-13.0 [facility] ([place]) Comment on above: Performed By: #### R UBEO, HBSAB, VARIS, RUBIS #### [address] [address] Neutrophils/100 WBC (Bld) 76.4 % High 50.0-75.0 [facility] ([place]) Comment on above: Performed By: #### R UBEO, HBSAB, VARIS, RUBIS #### [address] [address] .NEUABSon 10-21-2021 Neutrophil, Absolute 10.30 10 3/mcL High 2.25-8.10 [facility] ([place]) Comment on above: Performed By: #### R UBEO, HBSAB, VARIS, RUBIS #### [address] [address] ABO/Rh (Gel)on 10-21-2021 ABO/Rh Interp Positive Invalid Interpretation Code [facility] ([place]) Comment on above: Performed By: #### R UBEO, HBSAB, VARIS, RUBIS #### [place] [id number] ABS (Gel)on 10-21-2021 ABSC Interp (Gel) Negative Normal [facility] ([place]) Comment on above: Performed By: #### R UBEO, HBSAB, VARIS, RUBIS #### [place] [id number] CBCon 10-21-2021 Erythrocyte distribution width (RBC) [Ratio] 13.0 % Normal 11.5-15.5 [facility] ([place]) Comment on above: Performed By: #### R UBEO, HBSAB, VARIS, RUBIS #### [place] [address] Hematocrit (Bld) [Volume fraction] 32.5 % Low 34.0-46.0 [facility] ([place] Comment on above: Performed By: #### R UBEO, HBSAB, VARIS, RUBIS #### [place] [address] Hgb 11.0 G/dL Low 12.0-16.0 [facility] ([place] Comment on above: Performed By: #### R UBEO, HBSAB, VARIS, RUBIS #### [place] [address] MCH (RBC) [Entitic mass] 30.0 pg Normal 27.0-33.0 [facility] ([place] Comment on above: Performed By: #### R UBEO, HBSAB, VARIS, RUBIS #### [place] [address] MCHC 33.9 G/dL Normal 32.0-36.0 [facility] ([place] Comment on above: Performed By: #### R UBEO, HBSAB, VARIS, RUBIS #### [place] [address] MCV (RBC) [Entitic vol] 88.6 fL Normal 80.0-99.0 [facility] ([place] Comment on above: Performed By: #### Jean Carlos ARAIZA HBSAB VARIS RUBIS #### [place] [address] Platelet 270 10 3/mcL Normal 150-450 [facility] ([place] Comment on above: Performed By: #### Jean Carlos ARAIZA HBSAB VARIS RUBIS #### [place] [address] Platelet mean volume (Bld) [Entitic vol] 8.5 fL Normal 6.6-10.5 [facility] ([place] Comment on above: Performed By: #### Jean Carlos ARAIZA HBSAB VARIS RUBFRANK #### [place] [address] RBC 3.67 10 6/mcL Low 4.10-5.30 [facility] ([place] Comment on above: Performed By: #### Jean Carlos ARAIZA HBSCHAN PUENTES RUBFRANK #### [place] [address] WBC 13.40 10 3/mcL High 4.50-10.80 [facility] ([place] Comment on above: Performed By: #### Jean Carlos ARAIZA HBSCHAN PUENTES RUBFARNK #### [place] [address] UAon 10-21-2021 Color (U) Yellow Normal [facility] ([place] Comment on above: Performed By: #### Jean Carlos CANNONEYanni HBSAB VARIS RUBFRANK #### [place] [address] Glucose (U) [Mass/Vol] Negative Normal Negative [facility] ([place] Comment on above: Performed By: #### Jean Carlos ARAIZA HBSCHAN PUENTES RUBFRANK #### [place] [address] Ketones Ql (U) Trace Normal Neg-Trace [facility] ([place] Comment on above: Performed By: #### Jean Carlos ARAIZA HBSAB VARIS RUBFRANK #### [place] [address] UA Appear Hazy Abnormal Clear [facility] ([place] Comment on above: Performed By: #### R UBEO, HBSAB, VARIS, RUBIS #### [address] [address] UA Blood Negative Normal Neg-Trace [facility] ([place] Comment on above: Performed By: #### R UBEO, HBSAB, VARIS, RUBIS #### [address] [address] UA Leuk Est Large Abnormal Negative [facility] ([place] Comment on above: Performed By: #### R UBEO, HBSAB, VARIS, RUBIS #### [place] [address] UA Nitrite Negative Normal Negative [facility] ([place] Comment on above: Performed By: #### R UBEO, HBSAB, VARIS, RUBIS #### [place] [address] UA pH 7.0 Normal 5.0 - 8.0 [facility] ([place] Comment on above: Performed By: #### R UBEO, HBSAB, VARIS, RUBIS #### [place] [address] UA Protein Negative Normal Negative [facility] ([place] Comment on above: Performed By: #### R UBEO, HBSAB, VARIS, RUBIS #### [place] [address] UA Spec Grav <=1.005 Abnormal 1.006-1.029 [facility] ([place] Comment on above: Performed By: #### R UBEO, HBSAB, VARIS, RUBIS #### [place] [address] UA Specimen Type Clean Catch Normal [facility] ([place] Comment on above: Performed By: #### R UBEO, HBSAB, VARIS, RUBIS #### [place] [address] UA Urobilinogen 0.2 E.U./dL Normal 0.2-1.0 [facility] ([place] Comment on above: Performed By: #### R UBEO, HBSAB, VARIS, RUBIS #### [place] [address] Urobilinogen (U) [Mass/Vol] Negative Normal Neg-Trace [facility] ([place] Comment on above: Performed By: #### R UBEO, HBSAB, VARIS, RUBIS #### [address] [address] UAMICon 10-21-2021 UA Bacteria Trace Abnormal Negative [facility] ([place] Comment on above: Performed By: #### R UBEO, HBSAB, VARIS, RUBIS #### [place] [address] UA RBC Negative Normal 0-2 [facility] ([place] Comment on above: Performed By: #### R UBEO, HBSAB, VARIS, RUBIS #### [place] [address] UA Squam Epithelial 3-5 Normal 0-20 [facility] ([place]) Comment on above: Performed By: #### R UBEO, HBSAB, VARIS, RUBIS #### [place] [address] UA WBC 5-10 Abnormal 0-5 [facility] ([place] Comment on above: Performed By: #### R UBEO, HBSAB, VARIS, RUBIS #### [place] [address] LABORATORYOrdered By: Chasity Tinajero on 10-20-2021 ABO and Rh group Nom (Bld) Blood group O Rh(D) positive Invalid Interpretation Code AH BB Auto SS Blood group antibody screen Ql NEG (10/20/21 11:45 PM) Invalid Interpretation Code AH BB Auto SS LABORATORYOrdered By: Ally Haney on 10-20-2021 Appearance (U) Hazy *ABN* (10/20/21 11:45 PM) Invalid Interpretation Code Clear AH Auto Urine SS Bacteria LM.HPF (Urine sed) [#/Area] Trace /HPF Invalid Interpretation Code Negative/HPF AH Auto Urine SS Bilirubin Ql (U) Negative (10/20/21 11:45 PM) Invalid Interpretation Code Neg-Trace AH Auto Urine SS Color (U) Yellow (10/20/21 11:45 PM) Invalid Interpretation Code AH Auto Urine SS Glucose Test strip (U) [Mass/Vol] Negative Invalid Interpretation Code Negativemg/dL AH Auto Urine SS Hemoglobin Auto test strip (U) [Mass/Vol] Negative (10/20/21 11:45 PM) Invalid Interpretation Code Neg-Trace AH Auto Urine SS Ketones Ql (U) Trace mg/dL Invalid Interpretation Code Neg-Tracemg/dL AH Auto Urine SS UA Leuk Est Large *ABN* (10/20/21 11:45 PM) Invalid Interpretation Code Negative AH Auto Urine SS UA Nitrite Negative (10/20/21 11:45 PM) Invalid Interpretation Code Negative AH Auto Urine SS UA pH 7.0 (10/20/21 11:45 PM) Invalid Interpretation Code 5.0 - 8.0 AH Auto Urine SS UA Protein Negative Invalid Interpretation Code Negativemg/dL AH Auto Urine SS UA RBC Negative Invalid Interpretation Code 0-2/HPF AH Auto Urine SS UA Spec Grav <=1.005 *ABN* (10/20/21 11:45 PM) Invalid Interpretation Code 1.006-1.029 AH Auto Urine SS UA Specimen Type Clean Catch (10/20/21 11:45 PM) Invalid Interpretation Code AH Auto Urine SS UA Squam Epithelial 3-5 /HPF Invalid Interpretation Code 0-20/HPF AH Auto Urine SS UA Urobilinogen 0.2 E.U./dL Invalid Interpretation Code 0.2-1.0E.U./dL AH Auto Urine SS WBC LM.HPF (Urine sed) [#/Area] 5-10 /HPF Invalid Interpretation Code 0-5/HPF AH Auto Urine SS LABORATORYOrdered By: SYSTEM SYSTEM on 10-20-2021 Basophils (Bld) [#/Vol] 0.00 103/mcL Invalid Interpretation Code 0.00 - 0.27 10^3/mcL AH Remisol SS Basophils/100 WBC (Bld) 0.3 % Invalid Interpretation Code 0.0 - 2.5 % AH Remisol SS Eosinophils (Bld) [#/Vol] 0.00 103/mcL Invalid Interpretation Code 0.00 - 0.65 10^3/mcL AH Remisol SS Eosinophils/100 WBC (Bld) 0.3 % Invalid Interpretation Code 0.0 - 6.0 % AH Remisol SS Erythrocyte distribution width (RBC) [Ratio] 13.0 % Invalid Interpretation Code 11.5 - 15.5 % AH Remisol SS Hematocrit (Bld) [Volume fraction] 32.5 % Invalid Interpretation Code 34.0 - 46.0 % AH Remisol SS Hemoglobin (Bld) [Mass/Vol] 11.0 G/dL Invalid Interpretation Code 12.0 - 16.0 G/dL AH Remisol SS Lymphocytes (Bld) [#/Vol] 2.40 103/mcL Invalid Interpretation Code 0.90 - 4.32 10^3/mcL AH Remisol SS Lymphocytes/100 WBC (Bld) 18.1 % Invalid Interpretation Code 20.0 - 40.0 % AH Remisol SS MCH (RBC) [Entitic mass] 30.0 pg Invalid Interpretation Code 27.0 - 33.0 pg AH Remisol SS MCHC (RBC) [Mass/Vol] 33.9 G/dL Invalid Interpretation Code 32.0 - 36.0 G/dL AH Remisol SS MCV (RBC) [Entitic vol] 88.6 fL Invalid Interpretation Code 80.0 - 99.0 fL AH Remisol SS Monocytes (Bld) [#/Vol] 0.70 103/mcL Invalid Interpretation Code 0.09 - 1.40 10^3/mcL AH Remisol SS Monocytes/100 WBC (Bld) 4.9 % Invalid Interpretation Code 2.0 - 13.0 % AH Remisol SS Neutrophils (Bld) [#/Vol] 10.30 103/mcL Invalid Interpretation Code 2.25 - 8.10 10^3/mcL AH Remisol SS Neutrophils/100 WBC (Bld) 76.4 % Invalid Interpretation Code 50.0 - 75.0 % AH Remisol SS Platelet mean volume (Bld) [Entitic vol] 8.5 fL Invalid Interpretation Code 6.6 - 10.5 fL AH Remisol SS Platelets (Bld) [#/Vol] 270 103/mcL Invalid Interpretation Code 150 - 450 10^3/mcL AH Remisol SS RBC (Bld) [#/Vol] 3.67 106/mcL Invalid Interpretation Code 4.10 - 5.30 10^6/mcL AH Remisol SS WBC (Bld) [#/Vol] 13.40 103/mcL Invalid Interpretation Code 4.50 - 10.80 10^3/mcL AH Remisol SS No Panel Informationon 10-20 Culture Urine 50,000 - 100,000 cfu /ml Mixed growth consistent with normal urogenital mery. [facility] Work Phone: OBSTETRIC ULTRASOUND WHIon 0 10-18-2021 [facility] No Panel Informationon 10-07 Group B Streptococcus Culture Group B Beta Streptococcus is not isolated. [facility] Work Phone: Basophil percentageon 2021 Basophil percentage 0-5 SEEN /hpf [facility] Work Phone: WBC (Bld) [#/Vol] 8.8 10*3/uL 4.4-11.0 [facility] Work Phone: Bilirubin Test strip Ql (U)o n 10-06-2021 Bilirubin Ql (U) Negative Negative [facility] Work Phone: Blood erythrocytes count (nu mber/volume)on 10-06-2021 RBC (Bld) [#/Vol] 3.35 10*6/uL 4.2-5.4 [facility] Work Phone: Blood hemoglobin measurement (mass/volume)on 10-06-2021 Hemoglobin (Bld) [Mass/Vol] 10.4 g/dL 12.0-15.0 [facility] Work Phone: Blood platelet mean volumeon 10-06-2021 Platelet mean volume (Bld) [Entitic vol] 10.3 fL 6.2-12.0 [facility] Work Phone: Determination of erythrocyte mean corpuscular volume (MCV)on 10-06-2021 MCV (RBC) [Entitic vol] 90.7 fL 81-99 [facility] Work Phone: fibronectinon 10-07-19 22 Fibronectin. (Vag fld) [Mass/Vol] Negative [facility] Work Phone: Hematocrit Auto (Bld) [Volum e fraction]on 10-06-2021 Hematocrit (Bld) [Volume fraction] 30.4 % 37-47 [facility] Work Phone: INR in Blood by Coagulation assayon 10-06-2021 INR Coag (Bld) [Relative time] 1.0 {INR} [facility] Work Phone: Ketones Test strip Ql (U)on 10-06-2021 Ketones Ql (U) Negative Negative [facility] Work Phone: Laboratory - Coagulationon 0 10-06-2021 aPTT Coag (Bld) [Time] 33.3 s 24.1-36.2 [facility] Work Phone: PT Coag (PPP) [Time] 13.0 s 11.7-14.9 [facility] Work Phone: Laboratory - Hematology and Cell countson 10-06-2021 Erythrocyte distribution width (RBC) [Entitic vol] 43.7 fL 35.1-43.9 [facility] Work Phone: Erythrocyte distribution width (RBC) [Ratio] 13.2 % 11.6-14.6 [facility] Work Phone: MCH (RBC) [Entitic mass] 31.0 pg 27.0-32.0 [facility] Work Phone: MCHC Auto (RBC) [Mass/Vol]on 10-06-2021 MCHC (RBC) [Mass/Vol] 34.2 g/dL 32-36 [facility] Work Phone: Mucus LM Ql (Urine sed)on Mucus Ql (Urine sed) 0 SEEN /hpf [facility] Work Phone: Nitrite Test strip Ql (U)on 10-06-2021 Nitrite Ql (U) Negative Negative [facility] Work Phone: No Panel Informationon 10-06 Specimen Comment (Misc) Not Reportable [facility] Work Phone: Fibrinogen 399 mg/dl 203-444 [facility] Work Phone: Platelets bldon 10-06-2021 Platelets (Bld) [#/Vol] 279 10*3/uL 150-450 [facility] Work Phone: Protein Test strip Ql (U)on 10-06-2021 Protein Ql (U) 15 mg/dl Negative [facility] Work Phone: Squamous epithelial cells de tection in urine sediment by light microscopyon 10-06-2021 Epithelial cells.squamous LM Ql (Urine sed) 5-10 SEEN /hpf [facility] Work Phone: Thin prep Papanicolaou smear with manual screeningon 10-06-2021 Thin prep Papanicolaou smear with manual screening Negative Negative [facility] Work Phone: URINE OB DIP B/Oon Glucose Ql (U) Negative Neg mg/dL [facility] Protein.monoclonal (U) [Mass/Vol] trace Neg mg/dL [facility] Urine blood detectionon 09-13 RBC Ql (U) Negative Negative [facility] Work Phone: RBC Ql (U) 0-5 SEEN /hpf [facility] Work Phone: Urine clarityon 10-06-2021 Clarity (U) Clear Clear [facility] Work Phone: Urine color determinationon 10-06-2021 Color (U) Yellow Yellow [facility] Work Phone: Urine glucose detectionon Glucose Ql (U) Normal mg/dl Normal [facility] Work Phone: Urine leukocyte esterase det ection by dipstickon 10-06-2021 Leukocyte esterase Test strip Ql (U) 100 /ul Negative [facility] Work Phone: Urine pHon 10-06-2021 pH (U) 7.0 [pH] [facility] Work Phone: Urine sediment bacteria coun t by microscopy (number/high power field)on 10-06-2021 Bacteria LM.HPF (Urine sed) [#/Area] 0 /[HPF] None Seen [facility] Work Phone: Urine specific gravity measu rementon 10-06-2021 Specific gravity (U) [Rel density] 1.010 [facility] Work Phone: Urobilinogen Auto test strip Ql (U)on 10-06-2021 Urobilinogen Ql (U) Normal mg/dl Normal [facility] Work Phone: LABORATORYOrdered By: Agueda Seo on 09-18-2021 Appearance (U) Cloudy *ABN* (09/18/21 5:17 PM) Invalid Interpretation Code Clear Auto Urine SS Bacteria LM.HPF (Urine sed) [#/Area] 1 /[HPF] Invalid Interpretation Code Negative/HPF AH Auto Urine SS Bilirubin Ql (U) Negative (09/18/21 5:17 PM) Invalid Interpretation Code Neg-Trace AH Auto Urine SS Calcium oxalate crystals LM.HPF (Urine sed) [#/Area] 1 /[HPF] Invalid Interpretation Code AH Auto Urine SS Color (U) Dark Yellow *NA* (09/18/21 5:17 PM) Invalid Interpretation Code AH Auto Urine SS Glucose Test strip (U) [Mass/Vol] Negative Invalid Interpretation Code Negativemg/dL AH Auto Urine SS Hemoglobin Auto test strip (U) [Mass/Vol] Negative (09/18/21 5:17 PM) Invalid Interpretation Code Neg-Trace AH Auto Urine SS Ketones Ql (U) Trace mg/dL Invalid Interpretation Code Neg-Tracemg/dL AH Auto Urine SS UA Leuk Est Moderate *ABN* (09/18/21 5:17 PM) Invalid Interpretation Code Negative AH Auto Urine SS UA Mucous Trace /HPF Invalid Interpretation Code AH Auto Urine SS UA Nitrite Negative (09/18/21 5:17 PM) Invalid Interpretation Code Negative Auto Urine SS UA pH 6.0 (09/18/21 5:17 PM) Invalid Interpretation Code 5.0 - 8.0 AH Auto Urine SS UA Protein Trace mg/dL Invalid Interpretation Code Negativemg/dL AH Auto Urine SS UA RBC Negative Invalid Interpretation Code 0-2/HPF AH Auto Urine SS UA Spec Grav >=1.030 *ABN* (09/18/21 5:17 PM) Invalid Interpretation Code 1.006-1.029 AH Auto Urine SS UA Specimen Type Clean Catch (09/18/21 5:17 PM) Invalid Interpretation Code Auto Urine SS UA Squam Epithelial 3-5 /HPF Invalid Interpretation Code 0-20/HPF Auto Urine SS UA Urobilinogen 1.0 E.U./dL Invalid Interpretation Code 0.2-1.0E.U./dL AH Auto Urine SS WBC LM.HPF (Urine sed) [#/Area] 5-10 /HPF Invalid Interpretation Code 0-5/HPF Auto Urine SS UAon 09-18-2021 Color (U) Dark Yellow Normal [facility] ([place] Comment on above: Performed By: #### R UBEO, HBSAB, VARIS, RUBIS #### [address] [address] Glucose (U) [Mass/Vol] Negative Normal Negative [facility] ([place] Comment on above: Performed By: #### R UBEO, HBSAB, VARIS, RUBIS #### [address] [address] Ketones Ql (U) Trace Normal Neg-Trace [facility] ([place] Comment on above: Performed By: #### R UBEO, HBSAB, VARIS, RUBIS #### [address] [address] UA Appear Cloudy Abnormal Clear [facility] ([place] Comment on above: Performed By: #### R UBEO, HBSAB, VARIS, RUBIS #### [address] [address] UA Blood Negative Normal Neg-Trace [facility] ([place] Comment on above: Performed By: #### R UBEO, HBSAB, VARIS, RUBIS #### [address] [address] UA Leuk Est Moderate Abnormal Negative [facility] ([place] Comment on above: Performed By: #### R UBEO, HBSAB, VARIS, RUBIS #### [address] [address] UA Nitrite Negative Normal Negative [facility] ([place] Comment on above: Performed By: #### R UBEO, HBSAB, VARIS, RUBIS #### [address] [address] UA pH 6.0 Normal 5.0 - 8.0 [facility] ([place] Comment on above: Performed By: #### Jean Carlos CANNONEYanni HBSAB, VARIS, RUBIS #### [address] [address] UA Protein Trace Normal Negative [facility] ([place] Comment on above: Performed By: #### R UBEO, HBSAB, VARIS, RUBIS #### [address] [address] UA Spec Grav >=1.030 Abnormal 1.006-1.029 [facility] ([place] Comment on above: Performed By: #### Jean Carlos UBEO HBSAB, VARIS, RUBIS #### [address] [address] UA Specimen Type Clean Catch Normal [facility] ([place] Comment on above: Performed By: #### R UBEO, HBSAB, VARIS, RUBIS #### [address] [address] UA Urobilinogen 1.0 E.U./dL Normal 0.2-1.0 [facility] ([place] Comment on above: Performed By: #### Jean Carlos UBEO, HBSAB, VARIS, RUBIS #### [address] [address] Urobilinogen (U) [Mass/Vol] Negative Normal Neg-Trace [facility] ([place] Comment on above: Performed By: #### R UBEO, HBSAB, VARIS, RUBIS #### [address] [address] UAMICon 09-18-2021 UA Bacteria 1+ /hpf Abnormal Negative [facility] ([place] Comment on above: Performed By: #### R UBEO, HBSAB, VARIS, RUBIS #### [address] [address] UA CA Ox Crystal 1+ /hpf Normal [facility] ([place] Comment on above: Performed By: #### R UBEO, HBSAB, VARIS, RUBIS #### [facility] [address] [place] [address] UA Mucous Trace Normal [facility] ([place] Comment on above: Performed By: #### R UBEO, HBSAB, VARIS, RUBIS #### [facility] [address] [place] [address] UA RBC Negative Normal 0-2 [facility] ([place] Comment on above: Performed By: #### R UBEO, HBSAB, VARIS, RUBIS #### [facility] [address] [place] [address] UA Squam Epithelial 3-5 Normal 0-20 [facility] ([place] Comment on above: Performed By: #### R UBEO, HBSAB, VARIS, RUBIS #### [facility] [address] [place] [address] UA WBC 5-10 Abnormal 0-5 [facility] ([place] Comment on above: Performed By: #### R UBEO, HBSAB, VARIS, RUBIS #### [facility] [address] [place] [address] CBCon 08-29-2021 BASO# 0.00 x10(3) Normal 0.00-0.10 [facility] Comment on above: Performed By: #### L 200.0010 #### [facility] - LABORATORY [address] [place] [address] Basophils/100 WBC (Bld) 0.1 % Normal 0.0-1.0 [facility] Comment on above: Performed By: #### L 200.0010 #### [facility] [address] [place] [address] EOS# 0.10 x10(3) Normal 0.00-0.54 [facility] Comment on above: Performed By: #### L 200.0010 #### [facility] [address] [place] [address] Eosinophils/100 WBC (Bld) 1.9 % Normal 0.5-4.9 [facility] Comment on above: Performed By: #### L 200.0010 #### ML [facility] [address] [place] [address] Erythrocyte distribution width (RBC) [Ratio] 13.3 % Normal 12.5-15.7 [facility] Comment on above: Performed By: #### L 200.0010 #### ML [facility] [address] [place] [address] Hematocrit (Bld) [Volume fraction] 29.4 % Low 36.0-48.0 [facility] Comment on above: Performed By: #### L 200.0010 #### ML [facility] [address] [place] [address] Hemoglobin (Bld) [Mass/Vol] 9.8 g/dL Low 12.0-16.0 [facility] Comment on above: Performed By: #### L 200.0010 #### [facility] [address] [place] [address] LYMPH# 1.40 x10(3) Normal 1.00-3.50 [facility] Comment on above: Performed By: #### L 200.0010 #### ML [facility] [address] [place] [address] Lymphocytes/100 WBC (Bld) 23.8 % Normal 16.0-48.0 [facility] Comment on above: Performed By: #### L 200.0010 #### ML [facility] [address] [place] [address] MCH (RBC) [Entitic mass] 29.8 pg Normal 28.5-32.9 [facility] Comment on above: Performed By: #### L 200.0010 #### ML [facility] [address] [place] [address] MCHC (RBC) [Mass/Vol] 33.3 g/dL Normal 33.0-36.0 [facility] Comment on above: Performed By: #### L 200.0010 #### ML [facility] [address] [place] [address] MCV (RBC) [Entitic vol] 89.5 fL Normal 80.0-99.0 [facility] Comment on above: Performed By: #### L 200.0010 #### [facility] [address] [place] [address] MONO# 0.40 x10(3) Normal 0.30-0.80 [facility] Comment on above: Performed By: #### L 200.0010 #### [facility] [address] [place] [address] Monocytes/100 WBC (Bld) 7.4 % Normal 4.3-11.2 [facility] Comment on above: Performed By: #### L 200.0010 #### [facility] [address] [place] [address] NEUT# 3.90 x10(3) Normal 1.40-6.50 [facility] Comment on above: Performed By: #### L 200.0010 #### [facility] [address] [place] [address] Neutrophils/100 WBC (Bld) 66.8 % Normal 45.0-73.0 [facility] Comment on above: Performed By: #### L 200.0010 #### [facility] [address] [place] [address] Platelet mean volume (Bld) [Entitic vol] 7.9 fL Normal 7.5-9.5 [facility] Comment on above: Performed By: #### L 200.0010 #### [facility] [address] [place] [address] PLT 212 X10(3) Normal 150-450 [facility] Comment on above: Performed By: #### L 200.0010 #### [facility] [address] [place] [address] RBC 3.28 x10(6) Low 3.30-5.00 [facility] Comment on above: Performed By: #### L 200.0010 #### [facility] [address] [place] [address] WBC 5.9 x10(3) Normal 4.5-10.0 [facility] Comment on above: Performed By: #### L 200.0010 #### [facility] [address] [place] [address] CMPon 08-29-2021 ALT [Catalytic activity/Vol] U/L Low 5-33 [facility] Comment on above: Performed By: #### L 100.0005 #### [facility] [address] [place] [address] A:G RATIO 1.14 Normal 1.1-2.5 [facility] Comment on above: Performed By: #### L 100.0005 #### [facility] [address] [place] [address] Albumin [Mass/Vol] 3.1 g/dL Low 3.5-5.2 [facility] Comment on above: Performed By: #### L 100.0005 #### [facility] [address] [place] [address] ALK. PHOS 81 U/L Normal 35-105 [facility] Comment on above: Performed By: #### L 100.0005 #### [facility] - [facility]ATORY [address] [place] [address] 83493 Anion gap [Moles/Vol] 12.5 mmol/L Low 15-22 [facility] Comment on above: Performed By: #### L 100.0005 #### ML [facility] [address] [place] [address] 87530 AST [Catalytic activity/Vol] 17 U/L Normal 5-32 [facility] Comment on above: Performed By: #### L 100.0005 #### ML - LABORATORY [address] [place] [address] 19997 Bilirubin [Mass/Vol] 0.3 mg/dL Normal 0.2-1.2 [facility] Comment on above: Performed By: #### L 100.0005 #### ML - [facility]ATORY [address] [place] [address] 89651 Calcium [Mass/Vol] 8.2 mg/dL Low 8.6-10.0 [facility] Comment on above: Performed By: #### L 100.0005 #### ML - [facility]ATORY [address] [place] [address] 34438 Chloride [Moles/Vol] 99 mmol/L Normal 98-107 [facility] Comment on above: Performed By: #### L 100.0005 #### [facility] [address] [place] [address] 25597 CO2 [Moles/Vol] 25 mmol/L Normal 22-29 [facility] Comment on above: Performed By: #### L 100.0005 #### ML [facility] [address] [place] [address] 82415 Creatinine [Mass/Vol] 0.40 mg/dL Low 0.50-0.90 [facility] Comment on above: Performed By: #### L 100.0005 #### ML [facility] [address] [place] [address] 31005 eGFR if AFR HANSA > 60 ml/min/1.73m2 Normal [facility] Comment on above: Result Comment: eGFR >= 60 Indicates normal kidney function. * eGFR IS AN ESTIMATE * (AFR HANSA = ) (non-AFR AM = NON-) MDRD calculation used in the eGFR should not be used to dose medications. For further limitations of the eGFR please refer to the Physician Website or the National Kidney Disease Education Program website (www.nkdep.nih.gov). Performed By: #### L 100.0005 #### ML [facility] [address] [place] [address] 66024 eGFR nonAFR Hansa > 60 ml/Min/1.73m2 Normal [facility] Comment on above: Performed By: #### L 100.0005 #### ML - [facility]ATORY [address] [place] [address] 99953 Globulin (S) [Mass/Vol] 2.7 g/dL Normal 1.5-4.5 [facility] Comment on above: Performed By: #### L 100.0005 #### ML [facility] [address] [place] [address] 99842 Glucose [Mass/Vol] 85 mg/dL Normal 74-106 [facility] Comment on above: Performed By: #### L 100.0005 #### ML - [facility]ATORY [address] [place] [address] 06419 Potassium [Moles/Vol] 3.5 mmol/L Normal 3.5-5.0 [facility] Comment on above: Performed By: #### L 100.0005 #### ML - [facility] [address] [place] [address] 79835 Protein [Mass/Vol] 5.8 g/dL Low 6.4-8.3 [facility] Comment on above: Performed By: #### L 100.0005 #### ML - [facility]AT[facility] [address] [place] [address] 65166 Sodium [Moles/Vol] 133 mmol/L Low 135-145 [facility] Comment on above: Performed By: #### L 100.0005 #### ML - [facility] [address] [place] [address] 19398 Urea nitrogen [Mass/Vol] 8 mg/dL Normal 6-20 [facility] Comment on above: Performed By: #### L 100.0005 #### ML - [facility]ATORY [address] [place] [address] 09516 ED REPORTon 08-29-2021 [place] [address] HEALTH INFORMATION MANAGEMENT EMERGENCY DEPARTMENT REPORT Patient: MARZENA PICKERING ANTOINE WALKER as dictated by MARIA A BENNETT [id number] F Status: DEP ER ED Date of Service: 08/28/21 CHIEF COMPLAINT: Cramping, vomiting, diarrhea, 26 weeks . HISTORY OF PRESENT ILLNESS: This 31-year-old female presents to emergency room, states that for several days now she has been vomiting, cannot keep anything down really. She has had diarrhea. She has not been able to keep anything down. She has been having some cramping. She denies any vaginal bleeding, but she is 26 weeks , and she tells me that she went into labor with her last child at almost 28 weeks. It felt very similar to this. She called her block piler. Her block piler recommended her to come in and get checked. She denies any fever or chills. ALLERGIES: Tree nut. SOCIAL HISTORY: The patient is . She does not smoke or drink. PAST SURGERY: Abdominal surgery. PAST MEDICAL HISTORY: Denies. DAILY MEDICATIONS: Please see nursing list. REVIEW OF SYSTEMS: Full 10 review of systems completely negative except as per HPI. PHYSICAL EXAMINATION: VITAL SIGNS: Upon examination, blood pressure 105/72, temperature 97.9, pulse 67, respirations 20, pulse ox is 100%. GENERAL: The patient is alert, age appropriate, sitting in the chair. LUNGS: Clear. HEART: Regular. ABDOMEN: Soft. She denies any pain with palpation, but she states she has internal cramping. Bowel sounds are heard throughout and hyperactive. EXTREMITIES: No swelling in the legs. SKIN: No rash or discoloration of the skin. EMERGENCY DEPARTMENT COURSE: After evaluating the patient; with her history of labor and this excessive vomiting and cramping, I think she needs to go up to the OB and be checked. She can receive fluids up there and nausea medication and if they deem everything is okay with the baby, then they can certainly send her back down. DISPOSITION: Discharged to OB. IMPRESSION: 1. Vomiting. 2. Twenty six . 3. Pelvic cramping. 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; No Physician << Signature on File>> Reported By: ANTOINE WALKERC Signed By: ANTOINE WALKER Tests performed at: [address] [address] Normal [facility] URINALYSISon 08-29-2021 Bilirubin Ql (U) Negative Normal NEGATIVE [facility] Comment on above: Performed By: #### L 200.3000 #### [facility] [address] [place] [address] 16916 Color (U) YELLOW Normal YELLOW [facility] Comment on above: Performed By: #### L 200.3000 #### ML [facility] [address] [place] [address] 85900 Glucose Ql (U) Negative Normal NEGATIVE [facility] Comment on above: Performed By: #### L 200.3000 #### ML - [facility]AT[facility] [address] [place] [address] 05344 Hemoglobin Ql (U) Negative Normal NEGATIVE [facility] Comment on above: Performed By: #### L 200.3000 #### ML - [facility] [address] [place] [address] 75022 Leukocyte esterase Test strip Ql (U) Negative Normal NEGATIVE [facility] Comment on above: Performed By: #### L 200.3000 #### ML - [facility] [address] [place] [address] 94092 Nitrite Ql (U) Negative Normal NEGATIVE [facility] Comment on above: Performed By: #### L 200.3000 #### ML [facility] [address] [place] [address] 90335 pH (U) 6.5 [pH] Normal 5.0-8.0 [facility] Comment on above: Performed By: #### L 200.3000 #### ML [facility] [address] [place] [address] 61249 Protein Ql (U) Negative Normal NEGATIVE [facility] Comment on above: Performed By: #### L 200.3000 #### ML [facility] [address] [place] [address] 06806 URINE APPEARANC CLEAR Normal CLEAR [facility] Comment on above: Performed By: #### L 200.3000 #### ML - [facility] [address] [place] [address] 67403 URINE KETONE Negative Normal NEGATIVE [facility] Comment on above: Performed By: #### L 200.3000 #### ML - [facility] [address] [place] [address] 95927 URINE SPECIFIC 1.010 Normal 1.001-1.035 [facility] Comment on above: Performed By: #### L 200.3000 #### [facility] - [facility] [address] [place] [address] 22308 URINE UROBILINO 0.2 EU/DL Normal 0.2-1.0 [facility] Comment on above: Performed By: #### L 200.3000 #### ML [facility] [address] [place] [address] SARS-CoV-2 (COVID-19) RT-PCR on 08-12-2021 SARS-CoV-2 (COVID-19) RNA NIGHAT+probe Ql (Unsp spec) Negative Normal [facility] Comment on above: Order Comment: Relea se to patient->Automatic 04096&Nasal swab Result Comment: NEGA TIVE: SARS-CoV-2 RNA was NOT detected - Interpretation: A negative result indicates severe acute respiratory syndrome coronavirus 2 (SARS-CoV-2) RNA was not detected. Negative results do not preclude SARS-CoV-2 infection and should not be used as the sole basis for patient management decisions. Negative results must be combined with clinical observations, patient history, and epidemiological information. The possibility of a false negative result should be considered if the patient's recent exposures or clinical presentation suggest that SARS-CoV-2 infection is possible, and diagnostic tests for other causes of illness are negative. If SARS-CoV-2 infection is still suspected, re-testing should be considered. - Method: Real-time reverse transcriptase PCR amplification for the qualitative detection of the ORF1 a/b non-structural region that is unique to SARS-CoV-2 and a conserved region in the structural protein envelope E-gene for jackson-Sarbecovirus detection using the Nancy SARS-CoV-2 assay on the [employer]00 System. - Comment: This test has received FDA Emergency Use Authorization (EUA) and has been verified by [facility] [place]. This test is only authorized for the duration of the public health emergency declaration and the circumstances that exist to justify the authorization of the emergency use of in vitro diagnostic tests for the detection of SARS-CoV-2 virus and/or diagnosis of COVID-19 infection under section 564(b)(1) of the Act, 21 U.S.C. 360bbb-3(b)(1), unless the authorization is terminated or revoked sooner. This test has not been FDA cleared or approved. Results should be used in conjunction with clinical findings, and should not form the sole basis for a diagnosis or treatment decision. - Fact Sheets for this EUA can be found at the following links: For Healthcare Providers: www.fda.gov/media/758672/download For Patients: www.[place].gov/media/952714/download - Reference Value: Negative Performed By: #### C OVID #### [address] [address] NANCY SARS CoV-2 RT PCR Not detected Normal [facility] Comment on above: Order Comment: Relea se to patient->Automatic 98659&Nasal swab Performed By: #### C OVID #### [place] [address] SARS-CoV-2 (COVID-19) RT-PCR on 08-11-2021 Hospitalized? No Normal [facility] Comment on above: Order Comment: Relea se to patient->Automatic 42015&Nasal swab Performed By: #### C OVID #### [place] [address] ICU? No Normal [facility] Comment on above: Order Comment: Relea se to patient->Automatic 86833&Nasal swab Performed By: #### C OVID #### [address] [address] ? Unknown Normal [facility] Comment on above: Order Comment: Relea se to patient->Automatic 95963&Nasal swab Performed By: #### C OVID #### [address] [address] Resident in congrega care setting? No Normal [facility] Comment on above: Order Comment: Relea se to patient->Automatic 43352&Nasal swab Performed By: #### C OVID #### [place] [address] SARS-CoV-2 (COVID-19) RT-PCR on 08-04-2021 SARS-CoV-2 (COVID-19) RNA NIGHAT+probe Ql (Unsp spec) Negative Normal [facility] Comment on above: Order Comment: Relea se to patient->Automatic 77417&Nasal swab Result Comment: NEGA TIVE: SARS-CoV-2 RNA was NOT detected - Interpretation: A negative result indicates severe acute respiratory syndrome coronavirus 2 (SARS-CoV-2) RNA was not detected. Negative results do not preclude SARS-CoV-2 infection and should not be used as the sole basis for patient management decisions. Negative results must be combined with clinical observations, patient history, and epidemiological information. The possibility of a false negative result should be considered if the patient's recent exposures or clinical presentation suggest that SARS-CoV-2 infection is possible, and diagnostic tests for other causes of illness are negative. If SARS-CoV-2 infection is still suspected, re-testing should be considered. - Method: Real-time reverse transcriptase PCR amplification for the qualitative detection of the ORF1 a/b non-structural region that is unique to SARS-CoV-2 and a conserved region in the structural protein envelope E-gene for jackson-Sarbecovirus detection using the Nancy SARS-CoV-2 assay on the [employer] System. - Comment: This test has received FDA Emergency Use Authorization (EUA) and has been verified by [facility]. This test is only authorized for the duration of the public health emergency declaration and the circumstances that exist to justify the authorization of the emergency use of in vitro diagnostic tests for the detection of SARS-CoV-2 virus and/or diagnosis of COVID-19 infection under section 564(b)(1) of the Act, 21 U.S.C. 360bbb-3(b)(1), unless the authorization is terminated or revoked sooner. This test has not been FDA cleared or approved. Results should be used in conjunction with clinical findings, and should not form the sole basis for a diagnosis or treatment decision. - Fact Sheets for this EUA can be found at the following links: For Healthcare Providers: www.fda.gov/media/620259/download For Patients: www.fda.gov/media/060221/download - Reference Value: Negative Performed By: #### C OVID #### [place] [address] NANCY SARS CoV-2 RT PCR Not detected Normal [facility] Comment on above: Order Comment: Relea se to patient->Automatic 10602&Nasal swab Performed By: #### C OVID #### [address] [address] SARS-CoV-2 (COVID-19) RT-PCR on 08-03-2021 Hospitalized? No Normal [facility] Comment on above: Order Comment: Relea se to patient->Automatic 63241&Nasal swab Performed By: #### C OVID #### [address] [address] ICU? No Normal [facility] Comment on above: Order Comment: Relea se to patient->Automatic 89883&Nasal swab Performed By: #### C OVID #### [address] [address] ? Unknown Normal [facility] Comment on above: Order Comment: Relea se to patient->Automatic 93171&Nasal swab Performed By: #### C OVID #### [address] [address] Resident in congregate care setting? No Normal [facility] Comment on above: Order Comment: Relea se to patient->Automatic 95971&Nasal swab Performed By: #### C OVID #### [address] [address] RUBEOon 07-28-2021 Rubeola IgG Ab Positive Normal [facility] ([place]) Comment on above: Result Comment: INTE RPRETATION OF RUBEOLA (MEASLES) IGG BY EIA: Negative Nonreactive (Negative) for anti-Rubeola IgG. Presumed non-immune to measles virus. Positive Reactive (Positive) for anti-Rubeola IgG. Presumed immune to measles virus. Equivocal Repeat testing if still indicated. Performed By: #### R UBEO, HBSAB, VARIS, RUBIS #### [facility] [address] [place] [address] RUBISon 07-28-[address] Positive Normal Positive [facility] ([place]) Comment on above: Result Comment: This immune status assay detects IgM and/or IgG antibody to Rubella. Interpret results in conjunction with clinical history. POS: Antibody detected; exposure at undetermined recent or distant time. If clinically indicated, order Rubella IGM to rule out recent infection. NEG: No antibody detected. Performed By: #### R UBEO, HBSAB, VARIS, RUBIS #### [place] [id number] VARISon 07-28-[address] Positive Normal [facility] ([place]) Comment on above: Result Comment: This immune status assay detects antibody to Varicella Zoster virus. Interpret results in conjunction with clinical history. Positive: Reactive for antibodies to Varicella IgG. If clinically indicated, order Varicella IGM to rule out recent infection. Equivocal: Equivocal for antibodies to Varicella IgG. Suggest repeat testing in 10-14 days. Negative: Non-reactive for antibodies to Varicella IgG. Performed By: #### R UBEO, HBSAB, VARIS, RUBIS #### [place] [id number] HBSABon 07-27-2021 Hep B Surf Ab >22077.0 Normal >=10.0 [facility] ([place]) Comment on above: Result Comment: 0 to < 10.0 mIU/mL Nonreactive Patient is considered not to have protective immunity to HBV infection >/= 10.0 mIU/mL Reactive Patient is considered to have protective immunity to HBV infection. This assay is traceable to the World Health Organization (WHO) Hepatitis B Immunoglobulin 1st International Reference Preparation (1976). The accepted criteria for immunity to HBV is anti-HBs activity >/= 10.0 mIU/mL, as defined by the WHO International Reference Preparation. Performed By: #### R UBEO, HBSAB, VARIS, RUBIS #### [place] [address] SARS-CoV-2 (COVID-19) RT-PCR on 07-27-2021 SARS-CoV-2 (COVID-19) RNA NIGHAT+probe Ql (Unsp spec) Negative Normal [facility] Comment on above: Order Comment: Relea se to patient->Automatic 61771&Nasal swab Result Comment: NEGA TIVE: SARS-CoV-2 RNA was NOT detected - Interpretation: A negative result indicates severe acute respiratory syndrome coronavirus 2 (SARS-CoV-2) RNA was not detected. Negative results do not preclude SARS-CoV-2 infection and should not be used as the sole basis for patient management decisions. Negative results must be combined with clinical observations, patient history, and epidemiological information. The possibility of a false negative result should be considered if the patient's recent exposures or clinical presentation suggest that SARS-CoV-2 infection is possible, and diagnostic tests for other causes of illness are negative. If SARS-CoV-2 infection is still suspected, re-testing should be considered. - Method: Real-time reverse transcriptase PCR amplification for the qualitative detection of the ORF1 a/b non-structural region that is unique to SARS-CoV-2 and a conserved region in the structural protein envelope E-gene for jackson-Sarbecovirus detection using the Nancy SARS-CoV-2 assay on the [employer] System. - Comment: This test has received FDA Emergency Use Authorization (EUA) and has been verified by [facility]. This test is only authorized for the duration of the public health emergency declaration and the circumstances that exist to justify the authorization of the emergency use of in vitro diagnostic tests for the detection of SARS-CoV-2 virus and/or diagnosis of COVID-19 infection under section 564(b)(1) of the Act, 21 U.S.C. 360bbb-3(b)(1), unless the authorization is terminated or revoked sooner. This test has not been FDA cleared or approved. Results should be used in conjunction with clinical findings, and should not form the sole basis for a diagnosis or treatment decision. - Fact Sheets for this EUA can be found at the following links: For Healthcare Providers: www.fda.gov/media/689084/download For Patients: www.fda.gov/media/643500/download - Reference Value: Negative Performed By: #### C OVID #### [address] [address] NANCY SARS CoV-2 RT PCR Not detected Normal [facility] Comment on above: Order Comment: Relea se to patient->Automatic 14448&Nasal swab Performed By: #### C OVID #### [address] [address] SARS-CoV-2 (COVID-19) RT-PCR on 07-25-2021 Hospitalized? No Normal [facility] Comment on above: Order Comment: Relea se to patient->Automatic 52572&Nasal swab Performed By: #### C OVID #### [address] [address] ICU? No Normal [facility] Comment on above: Order Comment: Relea se to patient->Automatic 72798&Nasal swab Performed By: #### C OVID #### [address] [address] ? [address] [facility] Comment on above: Order Comment: Relea se to patient->Automatic 25059&Nasal swab Performed By: #### C OVID #### [address] [address] Resident in congregate care setting? No [facility] Comment on above: Order Comment: Relea se to patient->Automatic 36242&Nasal swab Performed By: #### C OVID #### [address] [address] SARS-CoV-2 (COVID-19) RT-PCR on 07-14-2021 SARS-CoV-2 (COVID-19) RNA NIGHAT+probe Ql (Unsp spec) Negative [facility] Comment on above: Order Comment: Relea se to patient->Automatic 69537&Nasal swab Result Comment: NEGA TIVE: SARS-CoV-2 RNA was NOT detected - Interpretation: A negative result indicates severe acute respiratory syndrome coronavirus 2 (SARS-CoV-2) RNA was not detected. Negative results do not preclude SARS-CoV-2 infection and should not be used as the sole basis for patient management decisions. Negative results must be combined with clinical observations, patient history, and epidemiological information. The possibility of a false negative result should be considered if the patient's recent exposures or clinical presentation suggest that SARS-CoV-2 infection is possible, and diagnostic tests for other causes of illness are negative. If SARS-CoV-2 infection is still suspected, re-testing should be considered. - Method: Real-time reverse transcriptase PCR amplification for the qualitative detection of the ORF1 a/b non-structural region that is unique to SARS-CoV-2 and a conserved region in the structural protein envelope E-gene for jackson-Sarbecovirus detection using the Nancy SARS-CoV-2 assay on the [employer] System. - Comment: This test has received FDA Emergency Use Authorization (EUA) and has been verified by [facility]. This test is only authorized for the duration of the public health emergency declaration and the circumstances that exist to justify the authorization of the emergency use of in vitro diagnostic tests for the detection of SARS-CoV-2 virus and/or diagnosis of COVID-19 infection under section 564(b)(1) of the Act, 21 U.S.C. 360bbb-3(b)(1), unless the authorization is terminated or revoked sooner. This test has not been FDA cleared or approved. Results should be used in conjunction with clinical findings, and should not form the sole basis for a diagnosis or treatment decision. - Fact Sheets for this EUA can be found at the following links: For Healthcare Providers: www.fda.gov/media/162884/download For Patients: www.fda.gov/media/051962/download - Reference Value: Negative Performed By: #### C OVID #### [facility] [address] [place] [address] NANCY SARS CoV-2 RT PCR Not detected Normal [facility] Comment on above: Order Comment: Relea se to patient->Automatic 10545&Nasal swab Performed By: #### C OVID #### [place] [address] SARS-CoV-2 (COVID-19) RT-PCR on 07-12-2021 Hospitalized? No Normal [facility] Comment on above: Order Comment: Relea se to patient->Automatic 38311&Nasal swab Performed By: #### C OVID #### [address] [address] ICU? No Normal [facility] Comment on above: Order Comment: Relea se to patient->Automatic 44067&Nasal swab Performed By: #### C OVID #### [address] [address] ? Unknown Normal [facility] Comment on above: Order Comment: Relea se to patient->Automatic 90077&Nasal swab Performed By: #### C OVID #### [address] [address] Resident in congregate care setting? No Normal [facility] Comment on above: Order Comment: Relea se to patient->Automatic 83789&Nasal swab Performed By: #### C OVID #### [address] [address] SARS-CoV-2 (COVID-19) RT-PCR on 06-19-2021 SARS-CoV-2 (COVID-19) RNA NIGHAT+probe Ql (Unsp spec) Negative [facility] Comment on above: Order Comment: Relea se to patient->Automatic [id number]&Nasal swab Result Comment: NEGA TIVE: SARS-CoV-2 RNA was NOT detected - Interpretation: A negative result indicates severe acute respiratory syndrome coronavirus 2 (SARS-CoV-2) RNA was not detected. Negative results do not preclude SARS-CoV-2 infection and should not be used as the sole basis for patient management decisions. Negative results must be combined with clinical observations, patient history, and epidemiological information. The possibility of a false negative result should be considered if the patient's recent exposures or clinical presentation suggest that SARS-CoV-2 infection is possible, and diagnostic tests for other causes of illness are negative. If SARS-CoV-2 infection is still suspected, re-testing should be considered. - Method: Real-time reverse transcriptase PCR amplification for the qualitative detection of the ORF1 a/b non-structural region that is unique to SARS-CoV-2 and a conserved region in the structural protein envelope E-gene for jackson-Sarbecovirus detection using the Nancy SARS-CoV-2 assay on the [employer] 6800 System. - Comment: This test has received FDA Emergency Use Authorization (EUA) and has been verified by [facility]. This test is only authorized for the duration of the public health emergency declaration and the circumstances that exist to justify the authorization of the emergency use of in vitro diagnostic tests for the detection of SARS-CoV-2 virus and/or diagnosis of COVID-19 infection under section 564(b)(1) of the Act, 21 U.S.C. 360bbb-3(b)(1), unless the authorization is terminated or revoked sooner. This test has not been FDA cleared or approved. Results should be used in conjunction with clinical findings, and should not form the sole basis for a diagnosis or treatment decision. - Fact Sheets for this EUA can be found at the following links: For Healthcare Providers: www.fda.gov/media/628011/download For Patients: www.fda.gov/media/105186/download - Reference Value: Negative Performed By: #### C OVID #### [place] [address] NANCY SARS CoV-2 RT PCR Not detected Normal [facility] Comment on above: Order Comment: Relea se to patient->Automatic [id number]&Nasal swab Performed By: #### C OVID #### [place] [address] Hospitalized? No Normal [facility] Comment on above: Order Comment: Relea se to patient->Automatic [id number]&Nasal swab Performed By: #### C OVID #### [place] [address] ICU? No Normal [facility] Comment on above: Order Comment: Relea se to patient->Automatic [id number]&Nasal swab Performed By: #### C OVID #### [place] [address] ? Unknown Normal [facility] Comment on above: Order Comment: Relea se to patient->Automatic [id number]&Nasal swab Performed By: #### C OVID #### [facility], [place] [id number] Resident in congregate care setting? No Normal [facility] Comment on above: Order Comment: Relea se to patient->Automatic [id number]&Nasal swab Performed By: #### C OVID #### [facility] [place] [address] SARS-CoV-2 (COVID-19) RT-PCR on 06-07-2021 SARS-CoV-2 (COVID-19) RNA NIGHAT+probe Ql (Unsp spec) Negative Normal [facility] Comment on above: Order Comment: Relea se to patient->Automatic [id number]&Nasal swab Result Comment: NEGA TIVE: SARS-CoV-2 RNA was NOT detected - Interpretation: A negative result indicates severe acute respiratory syndrome coronavirus 2 (SARS-CoV-2) RNA was not detected. Negative results do not preclude SARS-CoV-2 infection and should not be used as the sole basis for patient management decisions. Negative results must be combined with clinical observations, patient history, and epidemiological information. The possibility of a false negative result should be considered if the patient's recent exposures or clinical presentation suggest that SARS-CoV-2 infection is possible, and diagnostic tests for other causes of illness are negative. If SARS-CoV-2 infection is still suspected, re-testing should be considered. - Method: Real-time reverse transcriptase PCR amplification for the qualitative detection of the ORF1 a/b non-structural region that is unique to SARS-CoV-2 and a conserved region in the structural protein envelope E-gene for jackson-Sarbecovirus detection using the Nancy SARS-CoV-2 assay on the [employer] System. - Comment: This test has received FDA Emergency Use Authorization (EUA) and has been verified by [facility]. This test is only authorized for the duration of the public health emergency declaration and the circumstances that exist to justify the authorization of the emergency use of in vitro diagnostic tests for the detection of SARS-CoV-2 virus and/or diagnosis of COVID-19 infection under section 564(b)(1) of the Act, 21 U.S.C. 360bbb-3(b)(1), unless the authorization is terminated or revoked sooner. This test has not been FDA cleared or approved. Results should be used in conjunction with clinical findings, and should not form the sole basis for a diagnosis or treatment decision. - Fact Sheets for this EUA can be found at the following links: For Healthcare Providers: www.[place].gov/media/905164/download For Patients: www.[place].gov/media/834801/download - Reference Value: Negative Performed By: #### C OVID #### [place] [address] NANCY SARS CoV-2 RT PCR Not detected Normal [facility] Comment on above: Order Comment: Relea se to patient->Automatic [id number]&Nasal swab Performed By: #### C OVID #### [address] [address] Hospitalized? No Normal [facility] Comment on above: Order Comment: Relea se to patient->Automatic [id number]&Nasal swab Performed By: #### C OVID #### [address] [address] ICU? No Normal [facility] Comment on above: Order Comment: Relea se to patient->Automatic 50468&Nasal swab Performed By: #### C OVID #### [address] [address] ? Unknown Normal [facility] Comment on above: Order Comment: Relea se to patient->Automatic 66568&Nasal swab Performed By: #### C OVID #### [address] [address] Resident in congregate care setting? No Normal [facility] Comment on above: Order Comment: Relea se to patient->Automatic [id number]&Nasal swab Performed By: #### C OVID #### [facility] [place] [address] SARS-CoV-2 (COVID-19) RT-PCR on 06-01-2021 SARS-CoV-2 (COVID-19) RNA NIGHAT+probe Ql (Unsp spec) Negative Normal [facility] Comment on above: Order Comment: Relea se to patient->Automatic [id number]&Nasal swab Result Comment: NEGA TIVE: SARS-CoV-2 RNA was NOT detected - Interpretation: A negative result indicates severe acute respiratory syndrome coronavirus 2 (SARS-CoV-2) RNA was not detected. Negative results do not preclude SARS-CoV-2 infection and should not be used as the sole basis for patient management decisions. Negative results must be combined with clinical observations, patient history, and epidemiological information. The possibility of a false negative result should be considered if the patient's recent exposures or clinical presentation suggest that SARS-CoV-2 infection is possible, and diagnostic tests for other causes of illness are negative. If SARS-CoV-2 infection is still suspected, re-testing should be considered. - Method: Real-time reverse transcriptase PCR amplification for the qualitative detection of the ORF1 a/b non-structural region that is unique to SARS-CoV-2 and a conserved region in the structural protein envelope E-gene for jackson-Sarbecovirus detection using the Nancy SARS-CoV-2 assay on the [employer] Nancy 6800 System. - Comment: This test has received FDA Emergency Use Authorization (EUA) and has been verified by [facility]. This test is only authorized for the duration of the public health emergency declaration and the circumstances that exist to justify the authorization of the emergency use of in vitro diagnostic tests for the detection of SARS-CoV-2 virus and/or diagnosis of COVID-19 infection under section 564(b)(1) of the Act, 21 U.S.C. 360bbb-3(b)(1), unless the authorization is terminated or revoked sooner. This test has not been FDA cleared or approved. Results should be used in conjunction with clinical findings, and should not form the sole basis for a diagnosis or treatment decision. - Fact Sheets for this EUA can be found at the following links: For Healthcare Providers: www.fda.gov/media/485343/download For Patients: www.fda.gov/media/668164/download - Reference Value: Negative Performed By: #### C OVID #### [place] [address] NANCY SARS CoV-[address] detected [facility] Comment on above: Order Comment: Relea se to patient->Automatic 59549&Nasal swab Performed By: #### C OVID #### [place] [address] SARS-CoV-2 (COVID-19) RT-PCR on 05-31-2021 Hospitalized? No Normal [facility] Comment on above: Order Comment: Relea se to patient->Automatic [id number]&Nasal swab Performed By: #### C OVID #### [place] [address] ICU? No Normal [facility] Comment on above: Order Comment: Relea se to patient->Automatic 65425&Nasal swab Performed By: #### C OVID #### [address] [address] ? Unknown Normal [facility] Comment on above: Order Comment: Relea se to patient->Automatic 41210&Nasal swab Performed By: #### C OVID #### [address] [address] Resident in congregate care setting? No Normal [facility] Comment on above: Order Comment: Relea se to patient->Automatic 58203&Nasal swab Performed By: #### C OVID #### [place] [address] SARS-CoV-2 (COVID-19) RT-PCR on 05-18-2021 SARS-CoV-2 (COVID-19) RNA NIGHAT+probe Ql (Unsp spec) Negative Normal [facility] Comment on above: Order Comment: Relea se to patient->Automatic Result Comment: NEGA TIVE: SARS-CoV-2 RNA was NOT detected - Interpretation: A negative result indicates severe acute respiratory syndrome coronavirus 2 (SARS-CoV-2) RNA was not detected. Negative results do not preclude SARS-CoV-2 infection and should not be used as the sole basis for patient management decisions. Negative results must be combined with clinical observations, patient history, and epidemiological information. The possibility of a false negative result should be considered if the patient's recent exposures or clinical presentation suggest that SARS-CoV-2 infection is possible, and diagnostic tests for other causes of illness are negative. If SARS-CoV-2 infection is still suspected, re-testing should be considered. - Method: Real-time reverse transcriptase PCR amplification for the qualitative detection of the ORF1 a/b non-structural region that is unique to SARS-CoV-2 and a conserved region in the structural protein envelope E-gene for jackson-Sarbecovirus detection using the Nancy SARS-CoV-2 assay on the [employer] System. - Comment: This test has received FDA Emergency Use Authorization (EUA) and has been verified by [facility]. This test is only authorized for the duration of the public health emergency declaration and the circumstances that exist to justify the authorization of the emergency use of in vitro diagnostic tests for the detection of SARS-CoV-2 virus and/or diagnosis of COVID-19 infection under section 564(b)(1) of the Act, 21 U.S.C. 360bbb-3(b)(1), unless the authorization is terminated or revoked sooner. This test has not been FDA cleared or approved. Results should be used in conjunction with clinical findings, and should not form the sole basis for a diagnosis or treatment decision. - Fact Sheets for this EUA can be found at the following links: For Healthcare Providers: www.fda.gov/media/147388/download For Patients: www.fda.gov/media/174147/download - Reference Value: Negative Performed By: #### C OVID #### [address] [address] NANCY SARS CoV-2 RT PCR Not detected Normal [facility] Comment on above: Order Comment: Relea se to patient->Automatic Performed By: #### C OVID #### [address] [address] SARS-CoV-2 (COVID-19) RT-PCR on 05-17-2021 Hospitalized? No Normal [facility] Comment on above: Order Comment: Relea se to patient->Automatic Performed By: #### C OVID #### [address] [address] ICU? No Normal [facility] Comment on above: Order Comment: Relea se to patient->Automatic Performed By: #### C OVID #### [address] [address] ? Unknown Normal [facility] Comment on above: Order Comment: Relea se to patient->Automatic Performed By: #### C OVID #### [address] [address] Resident in congregate care setting? No Normal [facility] Comment on above: Order Comment: Relea se to patient->Automatic Performed By: #### C OVID #### [address] [address] ROUTINE COVIDon 04-24-2021 SARS-CoV-2 (COVID-19) RNA NIGHAT+probe Ql (Unsp spec) Positive Invalid Interpretation Code NEGATIVE [facility] Comment on above: Order Comment: Campu s: CR Result Comment: Posi tive results are indicative of the presence of SARS-CoV-2 RNA; clinical correlation with patient history and other diagnostic information is necessary to determine patient infection status. Positive results do not rule out bacterial infection or co-infection with other viruses. The agent detected may not be the definite cause of disease. This test has been authorized by the FDA under the Emergency Use Authorization (EUA) for use by authorized laboratories. This test was performed by PCR. PUI TO TUSC Performed By: #### L [id number] #### [facility] [address] [place] [address] # [phone] [facility] 04-22-2021 [facility] REPORT Normal [facility] DATE OF SERVICE: 04/22/2021 HISTORY OF PRESENT ILLNESS: Patient is a 31-year-old white female who presents to the clinic with positive COVID exposure. 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 She has a headache, weakness and congestion. It is more nasal stuffiness. She is not really getting anything out. She has a nonproductive cough. Some loss of smell, but not of taste. She has had some nausea, vomiting and diarrhea, but she is also 8 weeks . No shortness of breath. She has not been vaccinated. She did a home one and it said positive, but she needs a confirmatory test so comes in to be evaluated and treated. PHYSICAL EXAMINATION: Vital signs are stable. Patient's temperature is 99.1. Pulse oximetry is 99%. HEENT is within normal limits except for some erythema of the nasal mucosa, some erythema of the posterior pharynx and tonsillar region and mild bilateral adenopathy. All else appears to be normal. Heart: Regular rate and rhythm without murmur, S3 or S4. Lungs: Positive bilateral rhonchi noted throughout, but very mild. No rales or wheezing. Abdomen: Positive bowel sounds x4 [facility] PATIENT NAME: MARZENA PICKERING [address] [facility] MEDICAL REC #: [id number] [place], [place] ADMIT DATE: [facility] REPORT [facility] PHYSICIAN quadrants. Negative masses or tenderness on palpation. Negative organomegaly. Extremities: Negative clubbing, cyanosis or edema. Negative deformity. DIAGNOSIS: Probable COVID. PLAN: Patient is COVID PCR swabbed and told to self quarantine until she gets her results back. She is given Keflex 500 mg, No. 30, one p.o. t.i.d., no refills. 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 Tylenol for any fever or sore throat pain. She was given a note for work that she is to self quarantine until she does get her results back. Return to clinic if any other issues. Bradford Mario DO /[id number] SSI File#: [id number] [place] [facility] PATIENT NAME: MARZENA PICKERING [address] [place] [address] REC #: [id number] [place], [place] ADMIT DATE: [facility] REPORT [facility]ARE PHYSICIAN END OF DOCUMENT / CHANGE LOG FOLLOWS Last Edited By Rupali. Signed By Bradford Mario DO #Bradford Galdamez DO #RUSS on 04/26/2021 07:45 ET on 04/26/2021 07:45 ET Revision Number - 2 Verified/Reviewed by 04/26/[id number] RUSS [place] [facility] PATIENT NAME: MARZENA PICKERING [facility] MEDICAL REC #: [id number] [place], [place] ADMIT DATE: [facility] RE[facility]ARE PHYSICIAN [facility] Vital Signs Date Time Vital Sign Value Performing Clinician Facility 03-17-2025 20:43-0400 Body temperature 97.5 [degF] No Primary Care Physician [facility] 03-17-2025 20:43-0400 Diastolic blood pressure 79 mm[Hg] No Primary Care Physician [facility] 03-17-2025 20:43-0400 Heart rate 79 /min No Primary Care Physician [facility] 03-17-2025 20:43-0400 Respiratory rate 14 /min No Primary Care Physician [facility] 03-17-2025 20:43-0400 SaO2% (BldA) [Mass fraction] 98 % No Primary Care Physician [facility] 03-17-2025 20:43-0400 Systolic blood pressure 125 mm[Hg] No Primary Care Physician [facility] 03-17-2025 20:40-0400 Body height 162.56 cm No Primary Care Physician [facility] 03-17-2025 20:40-0400 Body mass index (BMI) [Ratio] 31.3 kg/m2 No Primary Care Physician [facility] 03-17-2025 20:40-0400 Body weight 82.8 kg No Primary Care Physician [facility] 03-05-2025 14:20-0400 Body mass index (BMI) [Ratio] 30.04 kg/m2 Marlee Almanza APRN.CNM Work Phone: [facility] 03-05-2025 14:20-0400 Body weight 79.38 kg Marlee Almanza APRN.CNM Work Phone: [facility] 03-05-2025 14:20-0400 Diastolic blood pressure 64 mm[Hg] Marlee Almanza APRN.CNM Work Phone: [facility] 03-05-2025 14:20-0400 Systolic blood pressure 96 mm[Hg] Marlee Almanza TECHNICAL SALES ASSOCIATE.CNM Work Phone: [facility] 02-11-2025 09:13-0400 Body mass index (BMI) [Ratio] 29.87 kg/m2 Marlee Almanza TECHNICAL SALES ASSOCIATE.CNM Work Phone: [facility] 02-11-2025 09:13-0400 Body weight 78.93 kg Marlee Almanza TECHNICAL SALES ASSOCIATE.CNM Work Phone: [facility] 02-11-2025 09:13-0400 Diastolic blood pressure 60 mm[Hg] Marlee Almanza TECHNICAL SALES ASSOCIATE.CNM Work Phone: [facility] 02-11-2025 09:13-0400 Systolic blood pressure 96 mm[Hg] Marlee Almanza TECHNICAL SALES ASSOCIATE.CNM Work Phone: [facility] 01-25-2025 13:32-0400 Body mass index (BMI) [Ratio] 29.87 kg/m2 Marlee Almanza TECHNICAL SALES ASSOCIATE.CNM Work Phone: [facility] 01-25-2025 13:32-0400 Body weight 78.93 kg Marlee Almanza TECHNICAL SALES ASSOCIATE.CNM Work Phone: [facility] 01-25-2025 13:32-0400 Diastolic blood pressure 64 mm[Hg] Marlee Almanza TECHNICAL SALES ASSOCIATE.CNM Work Phone: [facility] 01-25-2025 13:32-0400 Systolic blood pressure 96 mm[Hg] Marlee Almanza TECHNICAL SALES ASSOCIATE.CNM Work Phone: [facility] 12-30-2024 13:06-0400 Body mass index (BMI) [Ratio] 27.42 kg/m2 Marlee Almanza TECHNICAL SALES ASSOCIATE.CNM Work Phone: [facility] 12-30-2024 13:06-0400 Body weight 74.75 kg Marlee Almanza TECHNICAL SALES ASSOCIATE.CNM Work Phone: [facility] 12-30-2024 13:06-0400 Diastolic blood pressure 60 mm[Hg] Marlee Almanza TECHNICAL SALES ASSOCIATE.CNM Work Phone: [facility] 12-30-2024 13:06-0400 Systolic blood pressure 100 mm[Hg] Marlee Almanza TECHNICAL SALES ASSOCIATE.CNM Work Phone: [facility] 11-03-2024 14:23-0400 Body mass index (BMI) [Ratio] 24.79 kg/m2 Marlee Almanza TECHNICAL SALES ASSOCIATE.CNM Work Phone: [facility] 11-03-2024 14:23-0400 Body weight 67.59 kg Marlee Almanza TECHNICAL SALES ASSOCIATE.CNM Work Phone: [facility] 11-03-2024 14:23-0400 Diastolic blood pressure 64 mm[Hg] Marlee Almanza TECHNICAL SALES ASSOCIATE.CNM Work Phone: [facility] 11-03-2024 14:23-0400 Systolic blood pressure 110 mm[Hg] Marlee Almanza TECHNICAL SALES ASSOCIATE.CNM Work Phone: [facility] 10-06-2024 11:19-0400 Body mass index (BMI) [Ratio] 23.46 kg/m2 Marlee Almanza TECHNICAL SALES ASSOCIATE.CNM Work Phone: [facility] 10-06-2024 11:19-0400 Body weight 63.96 kg Marlee Almanza TECHNICAL SALES ASSOCIATE.CNM Work Phone: [facility] 10-06-2024 11:19-0400 Diastolic blood pressure 68 mm[Hg] Marlee Almanza TECHNICAL SALES ASSOCIATE.CNM Work Phone: [facility] 10-06-2024 11:19-0400 Systolic blood pressure 102 mm[Hg] Marlee Almanza TECHNICAL SALES ASSOCIATE.CNM Work Phone: [facility] 09-08-2024 12:57-0500 Body height 165.1 cm Marlee Almanza TECHNICAL SALES ASSOCIATE.CNM Work Phone: [facility] 09-08-2024 12:57-0500 Body mass index (BMI) [Ratio] 22.8 kg/m2 Marlee Almanza TECHNICAL SALES ASSOCIATE.CNM Work Phone: [facility] 09-08-2024 12:57-0500 Body weight 62.14 kg Marlee Almanza TECHNICAL SALES ASSOCIATE.CNM Work Phone: [facility] 09-08-2024 12:57-0500 Diastolic blood pressure 60 mm[Hg] Marlee Almanza TECHNICAL SALES ASSOCIATE.CNM Work Phone: [facility] 09-08-2024 12:57-0500 Systolic blood pressure 118 mm[Hg] Marlee Almanza TECHNICAL SALES ASSOCIATE.CNM Work Phone: [facility] 09-01-2024 17:49-0500 Body mass index (BMI) [Ratio] 23.08 kg/m2 Arianna Ledger TECHNICAL SALES ASSOCIATE.MOLD CARRIER Work Phone: [facility] 09-01-2024 17:49-0500 Body temperature 99.1 [degF] Arianna Ledger TECHNICAL SALES ASSOCIATE.MOLD CARRIER Work Phone: [facility] 09-01-2024 17:49-0500 Body weight 61 kg Arianna Ledger TECHNICAL SALES ASSOCIATE.MOLD CARRIER Work Phone: [facility] 09-01-2024 17:49-0500 Diastolic blood pressure 71 mm[Hg] Arianna Ledger TECHNICAL SALES ASSOCIATE.MOLD CARRIER Work Phone: [facility] 09-01-2024 17:49-0500 Heart rate 74 /min Arianna Ledger TECHNICAL SALES ASSOCIATE.MOLD CARRIER Work Phone: [facility] 09-01-2024 17:49-0500 Respiratory rate 16 /min Arianna Ledger TECHNICAL SALES ASSOCIATE.MOLD CARRIER Work Phone: [facility] 09-01-2024 17:49-0500 SaO2% (BldA) [Mass fraction] 99 % Arianna Ledger TECHNICAL SALES ASSOCIATE.MOLD CARRIER Work Phone: [facility] 09-01-2024 17:49-0500 Systolic blood pressure 109 mm[Hg] Arianna Ledger TECHNICAL SALES ASSOCIATE.MOLD CARRIER Work Phone: [facility] 01-02-2023 12:57-0400 Body height 162.6 cm Marlee Almanza TECHNICAL SALES ASSOCIATE.CNM Work Phone: [facility] 01-02-2023 12:57-0400 Body weight 62.14 kg Marlee Almanza APRN.CNM Work Phone: [facility] 01-02-2023 12:57-0400 Diastolic blood pressure 60 mm[Hg] Marlee Almanza APRN.CNM Work Phone: [facility] 01-02-2023 12:57-0400 Systolic blood pressure 98 mm[Hg] Marlee Almanza APRN.CNM Work Phone: [facility] 12-17-2022 08:52-0400 Body temperature 97.11 [degF] Anjali Valero APRN.MOLD CARRIER Work Phone: [facility] 12-17-2022 08:52-0400 Body weight 61.24 kg Anjali Valero APRN.MOLD CARRIER Work Phone: [facility] 12-17-2022 08:52-0400 Diastolic blood pressure 75 mm[Hg] Anjali Valero APRN.MOLD CARRIER Work Phone: [facility] 12-17-2022 08:52-0400 Heart rate 65 /min Anjali Valero APRN.MOLD CARRIER Work Phone: [facility] 12-17-2022 08:52-0400 Respiratory rate 18 /min Anjali Valero APRN.MOLD CARRIER Work Phone: [facility] 12-17-2022 08:52-0400 SaO2% (BldA) [Mass fraction] 100 % Anjali Valero APRN.MOLD CARRIER Work Phone: [facility] 12-17-2022 08:52-0400 Systolic blood pressure 114 mm[Hg] Anjali Valero APRN.MOLD CARRIER Work Phone: [facility] 08-04-2022 11:27-0500 Body temperature 98.49 [degF] Anne-Marie Chacon APRN.MOLD CARRIER Work Phone: [facility] 08-04-2022 11:27-0500 Body weight 56.7 kg Anne-Marie Chacon APRN.MOLD CARRIER Work Phone: [facility] 08-04-2022 11:27-0500 Diastolic blood pressure 64 mm[Hg] Anne-Marie Chacon APRN.MOLD CARRIER Work Phone: [facility] 08-04-2022 11:27-0500 Heart rate 57 /min Anne-Marie Chacon APRN.MOLD CARRIER Work Phone: [facility] 08-04-2022 11:27-0500 Respiratory rate 14 /min Anne-Marie Chacon APRN.MOLD CARRIER Work Phone: [facility] 08-04-2022 11:27-0500 SaO2% (BldA) [Mass fraction] 99 % Anne-Marie Chacon APRN.MOLD CARRIER Work Phone: [facility] 08-04-2022 11:27-0500 Systolic blood pressure 116 mm[Hg] Anne-Marie Chacon APRN.MOLD CARRIER Work Phone: [facility] 12-26-2021 11:09-0400 Body weight 60.6 kg Marlee Almanza APRN.CNM Work Phone: [facility] 12-26-2021 11:09-0400 Diastolic blood pressure 60 mm[Hg] Marlee Almanza APRN.CNM Work Phone: [facility] 12-26-2021 11:09-0400 Systolic blood pressure 110 mm[Hg] Marlee Almanza APRN.CNM Work Phone: [facility] 11-18-2021 08:30-0400 Body temperature 97.2 [degF] [facility] Work Phone: 11-18-2021 08:30-0400 Diastolic blood pressure 59 mm[Hg] [facility] Work Phone: 11-18-2021 08:30-0400 Heart rate 62 /min [facility] Work Phone: 11-18-2021 08:30-0400 Respiratory rate 18 /min [facility] Work Phone: 11-18-2021 08:30-0400 Systolic blood pressure 100 mm[Hg] [facility] Work Phone: 11-18-2021 02:30-0400 SaO2% (BldA) [Mass fraction] 97 % [facility] Work Phone: 11-16-2021 22:11-0400 Body height 162.[address] [facility] Work Phone: 11-16-2021 22:11-0400 Body mass index (BMI) [Ratio] 25.4 kg/m2 [facility] Work Phone: 11-16-2021 22:11-0400 Body weight 67.[address] [facility] Work Phone: 11-14-2021 11:31-0400 Body weight 67.59 kg Marlee Almanza APRN.CNM Work Phone: [facility] 11-14-2021 11:31-0400 Diastolic blood pressure 62 mm[Hg] Marlee Almanza APRN.CNM Work Phone: [facility] 11-14-2021 11:31-0400 Systolic blood pressure 110 mm[Hg] Marlee Almanza APRN.CNM Work Phone: [facility] 11-07-2021 23:33-0400 Body temperature 98 [degF] [facility] Work Phone: 11-07-2021 23:33-0400 Diastolic blood pressure 67 mm[Hg] [facility] Work Phone: 11-07-2021 23:33-0400 Heart rate 57 /min [facility] Work Phone: 11-07-2021 23:33-0400 SaO2% (BldA) [Mass fraction] 98 % [facility] Work Phone: 11-07-2021 23:33-0400 Systolic blood pressure 113 mm[Hg] [facility] Work Phone: 11-07-2021 19:16-0400 Body mass index (BMI) [Ratio] 25.5 kg/m2 [facility] Work Phone: 11-07-2021 19:16-0400 Body weight 67.[address] [facility] Work Phone: 10-31-2021 14:13-0400 Body weight 65.32 kg Marlee Almanza APRN.CNM Work Phone: [facility] 10-31-2021 14:13-0400 Diastolic blood pressure 56 mm[Hg] Marlee Almanza APRN.CNM Work Phone: [facility] 10-31-2021 14:13-0400 Systolic blood pressure 102 mm[Hg] Marlee Almanza APRN.CNM Work Phone: [facility] 10-25-2021 10:52-0400 Body weight 66.86 kg Erendira Hayes MD Work Phone: [facility] 10-25-2021 10:52-0400 Diastolic blood pressure 64 mm[Hg] Erendira Hayes MD Work Phone: [facility] 10-25-2021 10:52-0400 Systolic blood pressure 118 mm[Hg] Erendira Hayes MD Work Phone: [facility] 10-23-2021 15:45-0400 Body temperature 98.42 [degF] JANICE SUÁREZ MD [facility] 10-23-2021 15:45-0400 Diastolic blood pressure 63 mm[Hg] JANICE SUÁREZ MD [facility] 10-23-2021 15:45-0400 Heart rate 69 /min JANICE SUÁREZ MD [facility] 10-23-2021 15:45-0400 Mean blood pressure 79 mm[Hg] JANICE SUÁREZ MD [facility] 10-23-2021 15:45-0400 Respiratory rate 16 /min JANICE SUÁREZ MD [facility] 10-23-2021 15:45-0400 Systolic blood pressure 110 mm[Hg] JANICE SUÁREZ MD [facility] 10-23-2021 11:27-0400 Body temperature 98.6 [degF] JANICE SUÁREZ MD [facility] 10-23-2021 11:27-0400 Diastolic blood pressure 62 mm[Hg] JANICE SUÁREZ MD [facility] 10-23-2021 11:27-0400 Heart rate 61 /min JANICE SUÁREZ MD [facility] 10-23-2021 11:27-0400 Mean blood pressure 76 mm[Hg] JANICE SUÁREZ MD [facility] 10-23-2021 11:27-0400 Respiratory rate 20 /min JANICE SUÁREZ MD [facility] 10-23-2021 11:27-0400 Systolic blood pressure 103 mm[Hg] JANICE SUÁREZ MD [facility] 10-23-2021 08:00-0400 Body temperature 98.06 [degF] JANICE SUÁREZ MD [facility] 10-23-2021 08:00-0400 Diastolic blood pressure 61 mm[Hg] JANICE SUÁERZ MD [facility] 10-23-2021 08:00-0400 Heart rate 62 /min JANICE SUÁREZ MD [facility] 10-23-2021 08:00-0400 Respiratory rate 17 /min JANICE SUÁREZ MD [facility] 10-23-2021 08:00-0400 Systolic blood pressure 105 mm[Hg] JANICE SUÁREZ MD [facility] 10-22-2021 10:04-0400 Body height 162.6 cm JANICE SUÁREZ MD [facility] 10-22-2021 10:04-0400 Body weight 65 kg JANICE SUÁREZ MD [facility] 10-22-2021 10:04-0400 Body weight 24.59 kg/m2 JANICE SUÁREZ MD [facility] 10-21-2021 00:01-0400 Body height 162.6 cm JANICE SUÁREZ MD [facility] 10-21-2021 00:01-0400 Body weight 65 kg JANICE SUÁREZ MD [facility] 10-21-2021 00:01-0400 Body weight 24.59 kg/m2 JANICE SUÁREZ MD [facility] 10-20-2021 22:30-0400 Body height 162.6 cm JANICE SUÁREZ MD [facility] 10-20-2021 22:30-0400 Body weight 65 kg JANICE SUÁREZ MD [facility] 10-20-2021 22:30-0400 Body weight 24.59 kg/m2 JANICE SUÁREZ MD [facility] 10-18-2021 14:18-0400 Body height 162.6 cm Nelly Shipley MD Work Phone: [facility] 10-18-2021 14:18-0400 Body weight 64.86 kg Nelly Shipley MD Work Phone: [facility] 10-07-2021 17:17-0400 Body height 162.[address] [facility] Work Phone: 10-07-2021 17:17-0400 Body mass index (BMI) [Ratio] 25.2 kg/m2 [facility] Work Phone: 10-07-2021 17:17-0400 Body weight 66.[address] [facility] Work Phone: 10-07-2021 17:05-0400 Heart rate 85 /min [facility] Work Phone: 10-07-2021 17:05-0400 SaO2% (BldA) [Mass fraction] 98 % [facility] Work Phone: 10-07-2021 17:04-0400 Diastolic blood pressure 65 mm[Hg] [facility] Work Phone: 10-07-2021 17:04-0400 Systolic blood pressure 111 mm[Hg] [facility] Work Phone: 10-06-2021 17:28-0400 Body height 162.[address] [facility] Work Phone: 10-06-2021 17:28-0400 Body mass index (BMI) [Ratio] 25 kg/m2 [facility] Work Phone: 10-06-2021 17:28-0400 Body weight 66.[address] [facility] Work Phone: 10-06-2021 17:11-0400 Body temperature 99.4 [degF] [facility] Work Phone: 10-06-2021 17:11-0400 Diastolic blood pressure 54 mm[Hg] [facility] Work Phone: 10-06-2021 17:11-0400 Heart rate 75 /min [facility] Work Phone: 10-06-2021 17:11-0400 SaO2% (BldA) [Mass fraction] 99 % [facility] Work Phone: 10-06-2021 17:11-0400 Systolic blood pressure 100 mm[Hg] [facility] Work Phone: 10-06-2021 15:46-0400 Body weight 66.22 kg Erendira Hayes MD Work Phone: [facility] 10-06-2021 15:46-0400 Diastolic blood pressure 70 mm[Hg] Erendira Hayes MD Work Phone: [facility] 10-06-2021 15:46-0400 Systolic blood pressure 120 mm[Hg] Erendira Hayes MD Work Phone: [facility] 09-18-2021 16:59-0500 Body height 160 cm GLENN ZAVALA MD [facility] 09-18-2021 16:59-0500 Body weight 64.4 kg GLENN ZAVALA MD [facility] 09-18-2021 16:59-0500 Body weight 25.16 kg/m2 GLENN ZAVALA MD [facility] 09-18-2021 16:57-0500 Diastolic blood pressure 62 mm[Hg] GLENN ZAVALA MD [facility] 09-18-2021 16:57-0500 Heart rate 65 /min GLENN ZAVALA MD [facility] 09-18-2021 16:57-0500 Mean blood pressure 76 mm[Hg] GLENN ZAVALA MD [facility] 09-18-2021 16:57-0500 Respiratory rate 16 /min GLENN ZAVALA MD [facility] 09-18-2021 16:57-0500 Systolic blood pressure 104 mm[Hg] GLENN ZAVALA MD [facility] Encounters Encounter Date Encounter Type Care Provider Facility Start: 03-23-2025 End: 03-23-2025 Telephone encounter Anjali Guzmán RN Occupational Health Comment on above: [facility] Start: 03-20-2025 End: 03-20-2025 Telephone encounter Jessy Segura RN Occupational Health Comment on above: [facility] Start: 03-17-2025 End: 03-17-2025 ambulatory No Primary Care Physician -[facility] Start: 03-17-2025 End: 03-17-[address] Miriam Ramsey MD -[facility] Work Phone: Start: 03-16-2025 End: 03-16-2025 Patient encounter procedure [facility] Comment on above: Uterine size-date di screpancy, third trimester (HCC) Start: 03-16-2025 End: 03-16-2025 [facility] Start: 03-05-2025 End: 03-05-2025 Patient encounter procedure Marlee Almanza APRN.CNM Work Phone: OB/Gynecology Comment on above: Supervision of other high risk pregnancies, third trimester (HCC) (Primary Dx); Uterine size-date discrepancy, third trimester (HCC); 33 weeks gestation of (HCC); Herpes simplex virus (HSV) infection; Antepartum anemia complicating in third trimester (HCC); Heartburn during in third trimester (HCC); Anxiety and depression Start: 03-05-2025 End: 03-05-2025 ambulatory WILLA ROGERS Facility:[facility] Start: 02-22-2025 End: 02-22-2025 Patient encounter procedure Marlee Almanza APRN.CNM Work Phone: OB/Gynecology Comment on above: Supervision of high risk in third trimester (HCC) (Primary Dx); 31 weeks gestation of (HCC); HSV-2 seropositive; Anxiety and depression; Antepartum anemia complicating in third trimester (HCC); Heartburn during in third trimester (HCC) Start: 02-22-2025 End: 02-22-2025 ambulatory WILLA ROGERS Facility:[facility] Start: 02-19-2025 End: 02-23-2025 ambulatory Marlee Almanza APRN.CNM Work Phone: OB/Gynecology Comment on above: 02/19/25 Start: 02-18-2025 End: 02-19-2025 Emergency department patient visit WILLA ROGRES Facility:[facility] Start: 02-11-2025 End: 02-11-2025 Patient encounter procedure Marlee Almanza APRN.CNM Work Phone: OB/Gynecology Comment on above: Supervision of high risk in third trimester (HCC) (Primary Dx); 30 weeks gestation of (HCC); HSV-2 seropositive; History of depression; Anxiety and depression; Bleeding of eye, left; Antepartum anemia complicating in third trimester (HCC) Start: 02-11-2025 End: 02-11-2025 ambulatory WILLA ROGERS Facility:[facility] Start: 02-05-2025 End: 02-05-2025 ambulatory Samaria Haji APRN.CNP Work Phone: Psychiatry Comment on above: Cancel Start: 01-25-2025 End: 01-25-2025 ambulatory WILLA ROGERS Facility:[facility] Start: 01-25-2025 End: 03-27-2025 Follow-up encounter Marlee Almanza APRN.CNM Work Phone: OB/Gynecology Start: 01-25-2025 End: 01-25-2025 Patient encounter procedure Marlee Almanza APRN.CNM Work Phone: OB/Gynecology Comment on above: Supervision of high risk in second trimester (HCC) (Primary Dx); 27 weeks gestation of (HCC); Bleeding of eye, left Conjunctival hemorrh age of left eye (Primary Dx) Start: 01-25-2025 End: 01-25-2025 ambulatory WILLA ROGERS Facility:[facility] Start: 01-17-2025 End: 01-18-2025 [facility] DENISEARAVIND CATHERINE DERRICK Facility:[id number] Start: 12-30-2024 End: 12-30-2024 Patient encounter procedure Marlee Almanza APRN.CNM Work Phone: OB/Gynecology Comment on above: Screening for diabet es mellitus (Primary Dx); 23 weeks gestation of (HCC); Supervision of high risk in second trimester (HCC); Heartburn Start: 12-30-2024 End: 12-30-2024 [facility] WILLA ROGERS Facility:[facility] Start: 12-01-2024 End: 12-01-2024 ambulatory WILLA ROGERS Facility:[facility] Start: 11-12-2024 End: 11-12-2024 [facility] Samaria Haji APRN.CNP Work Phone: Psychiatry Comment on above: GUIDO (generalized anx iety disorder) (Primary Dx); Encounter for long-term (current) use of medications; Recurrent major depressive disorder, in partial remission; Psychosocial stressors Start: 11-12-2024 ambulatory WILLA ROGERS Facil ity:[facility] Start: 11-03-2024 End: 11-03-2024 Patient encounter procedure Marlee Almanza APRN.CNM Work Phone: OB/Gynecology Comment on above: Supervision of high risk , antepartum (HCC) (Primary Dx); 15 weeks gestation of (HCC); HSV-2 seropositive; History of depression; History of anxiety; Anxiety and depression Start: 11-03-2024 End: 11-03-2024 ambulatory Marlee Almanza APRN.CNM Work Phone: OB/Gynecology Comment on above: Prenatals Im sorry Start: 10-30-2024 End: 10-30-2024 ambulatory Samaria Haji APRN.MOLD CARRIER Work Phone: Psychiatry Comment on above: NO SHOW (Primary Dx) Start: 10-30-2024 End: 10-30-2024 Telemedicine consultation with patient Samaria Haji APRN.CNP Work Phone: Psychiatry Start: 10-12-2024 End: 12-12-2024 Follow-up encounter Jeana Cueva MD Work Phone: OB/Gynecology Start: 10-06-2024 End: 10-06-2024 ambulatory WILLA ROGERS Facility:[facility] Start: 10-06-2024 End: 10-06-2024 ambulatory WILLA ROGERS Facility:[facility] Start: 10-06-2024 End: 10-06-2024 Patient encounter procedure Marlee Almanza APRN.CNM Work Phone: OB/Gynecology Comment on above: Supervision of high risk , antepartum (Primary Dx); Herpes simplex virus (HSV) infection; Anxiety and depression; 11 weeks gestation of Encounter for anatomic survey (Primary Dx); History of labor; 11 weeks gestation of Start: 10-05-2024 End: 10-05-2024 ambulatory MARLEE ALMANZA Facility:[id number] Start: 09-16-2024 End: 09-16-2024 ambulatory WILLA ROGERS Facility:[facility] Start: 09-16-2024 End: 09-16-2024 Patient encounter procedure Samaria Haji APRN.MOLD CARRIER Work Phone: Psychiatry Comment on above: APPOINTMENT CANCELLE D (Primary Dx) Start: 09-16-2024 End: 09-16-2024 Telemedicine consultation with patient Samaria Leland Haji APRN.CNP Work Phone: Psychiatry Start: 09-16-2024 End: 09-16-2024 Telephone encounter Samaria Haji APRN.CNP Work Phone: Psychiatry Start: 09-15-2024 End: 09-15-2024 Telephone encounter Samaria Haji APRN.MOLD CARRIER Work Phone: Psychiatry Start: 09-11-2024 End: 09-16-2024 ambulatory Samaria Haji APRN.MOLD CARRIER Work Phone: Psychiatry Comment on above: Wellbutrin Start: 09-08-2024 End: 09-08-2024 ambulatory WILLA ROGERS Facility:[facility] Start: 09-08-2024 End: 09-08-2024 Patient encounter procedure Marlee Almanza APRN.CNM Work Phone: OB/Gynecology Comment on above: Supervision of high risk , antepartum (Primary Dx); 7 weeks gestation of ; Screen for STD (sexually transmitted disease); History of labor; Herpes simplex virus (HSV) infection; History of depression; Anxiety and depression; Family history of [place]-Sachs disease; GUIDO (generalized anxiety disorder); HSV-2 seropositive; Family history of defects Start: 09-05-2024 End: 09-05-2024 ambulatory SHERITA Supa VARSHA Facility:[id number] Start: 09-02-2024 End: 09-02-2024 Emergency department patient visit WILLA ROGERS Facility:[id number] Start: 09-01-2024 End: 09-01-2024 ambulatory ARIANNA BYNUM Facility:[id number] Start: 09-01-2024 End: 09-01-2024 Patient encounter procedure Arianna Bynum APRN.MOLD CARRIER Work Phone: [facility] Comment on above: Nausea and vomiting, unspecified vomiting type (Primary Dx); Dizzy; Viral illness Start: 08-28-2024 End: 08-28-2024 ambulatory WILLA ROGERS Facility:[facility] Start: 08-28-2024 End: 08-28-2024 [facility] Samaria Haji APRN.MOLD CARRIER Work Phone: Psychiatry Comment on above: GUIDO (generalized anx iety disorder) (Primary Dx); Recurrent major depressive disorder, in partial remission (HCC); Encounter for long-term (current) use of medications; with 8 completed weeks gestation Start: 08-24-2024 End: 08-25-2024 Telephone encounter Marlee Almanza APRN.CNM Work Phone: OB/Gynecology Comment on above: Question (OB Questio n) Start: 08-14-2024 End: 08-19-2024 Telephone encounter Samaria Haji APRN.CNP Work Phone: Psychiatry Comment on above: Medication Question Start: 05-22-2024 End: 05-22-2024 ambulatory Samaria Haji APRN.MOLD CARRIER Work Phone: Psychiatry Comment on above: Duplicate sorry Start: 05-04-2024 End: 05-04-2024 ambulatory WILLA Hendrix SUE Facility:[facility] Start: 05-04-2024 End: 05-04-2024 [facility] Samaria Haji APRN.MOLD CARRIER Work Phone: Psychiatry Comment on above: GUIDO (generalized anx iety disorder) (Primary Dx); Moderate episode of recurrent major depressive disorder (HCC); Apathy; Medication side effect, initial encounter; Encounter for long-term (current) use of medications Start: 03-06-2024 End: 03-06-2024 Telephone encounter Anne-Marie Roldan MD Work Phone: OB/Gynecology Comment on above: Vaginal Problem Start: 01-31-2024 End: 01-31-2024 [facility] Samaria Haji APRN.MOLD CARRIER Work Phone: Psychiatry Comment on above: Recurrent major depr essive disorder, in partial remission (HCC) (Primary Dx); GUIDO (generalized anxiety disorder); Grief reaction Start: 01-17-2024 ambulatory Samaria bryant APRN.MOLD CARRIER Work Phone: Psychiatry Comment on above: Cancellation Start: 01-17-2024 End: 01-17-2024 Patient encounter procedure Samaria Haji APRN.MOLD CARRIER Work Phone: Psychiatry Comment on above: APPOINTMENT CANCELLE D (Primary Dx) Start: 01-17-2024 End: 01-17-2024 Telemedicine consultation with patient Samaria J Marlyn EAST.MOLD CARRIER Work Phone: Psychiatry Start: 12-18-2023 ambulatory Marlee Almanza TECHNICAL SALES ASSOCIATE.CNM Work Phone: OB/Gynecology Comment on above: Blood work Start: 11-06-2023 Telephone encounter Marlee wright TECHNICAL SALES ASSOCIATE.CNM Work Phone: OB/Gynecology Comment on above: Irregular Menstrual Cycle (/) Start: 11-01-2023 End: 11-01-2023 [facility] Samaria Haji TECHNICAL SALES ASSOCIATE.MOLD CARRIER Work Phone: Psychiatry Comment on above: Recurrent major depr essive disorder, in partial remission (HCC) (Primary Dx); GUIDO (generalized anxiety disorder); Grief reaction Start: 10-23-2023 ambulatory Samaria bryant TECHNICAL SALES ASSOCIATE.MOLD CARRIER Work Phone: Psychiatry Comment on above: Marzena Pickering Start: 09-30-2023 End: 09-30-2023 Patient encounter procedure Sherita Mejia PA-C Work Phone: [facility] Dermatology Comment on above: Neoplasm of unspecif ied behavior of bone, soft tissue, and skin (Primary Dx); Family history of melanoma Start: 08-26-2023 End: 08-26-2023 [facility] Supriya Valdovinos [facility] Comment on above: Moderate episode of recurrent major depressive disorder (HCC); GUIDO (generalized anxiety disorder) Start: 04-04-2023 End: 04-04-2023 [facility] Samaria Haji APRN.MOLD CARRIER Work Phone: Psychiatry Comment on above: GUIDO (generalized anx iety disorder) (Primary Dx); Moderate episode of recurrent major depressive disorder (HCC) Start: 03-08-2023 End: 03-08-2023 [facility] Samaria Haji APRN.CNP Work Phone: Psychiatry Comment on above: GUIDO (generalized anx iety disorder) (Primary Dx) Start: 03-07-2023 End: 03-07-2023 Patient encounter procedure Samaria Haji APRN.CNP Work Phone: Psychiatry Comment on above: APPOINTMENT CANCELLE D (Primary Dx) Start: 03-07-2023 End: 03-07-2023 Telemedicine consultation with patient Samaria Ha Marlyn SARAVIA Work Phone: [facility] Start: 01-02-2023 End: 01-02-2023 Patient encounter procedure Marlee Almanza APRN.CNM Work Phone: OB/Gynecology Comment on above: Encounter for gyneco logical examination (general) (routine) without abnormal findings (Primary Dx); Atypical squamous cells of undetermined significance (ASCUS) on Papanicolaou smear of cervix; Screening for cervical cancer; Encounter for screening for human papillomavirus (HPV); Family history of ovarian cancer; Vaginal discharge; Screening examination for STD (sexually transmitted disease); Encounter for preconception consultation; Generalized anxiety disorder Start: 01-02-2023 End: 01-02-2023 Patient encounter status Marlee Almanza APRN.CNM Work Phone: OB/Gynecology Start: 12-17-2022 Telephone encounter No Pcp [facility] Comment on above: Medication Problem Start: 12-17-2022 ambulatory FC-ANJALI VALERO Facility:[facility] Start: 12-17-2022 End: 12-17-2022 Subsequent hospital visit by physician Provider [facility] Start: 12-17-2022 End: 12-17-2022 Patient encounter procedure Anjali Valero APRN.CNP Work Phone: [facility] Comment on above: Pharyngitis, unspeci fied etiology (Primary Dx); Sore throat; Acute bacterial conjunctivitis of both eyes Start: 11-20-2022 End: 11-20-2022 [facility] Samaria Haji APRN.CNP Work Phone: Psychiatry Comment on above: GUIDO (generalized anx iety disorder) (Primary Dx) Start: 11-02-2022 End: 11-02-2022 [facility] Samaria Haji TECHNICAL SALES ASSOCIATE.MOLD CARRIER Work Phone: Psychiatry Comment on above: GUIDO (generalized anx iety disorder) (Primary Dx) Start: 10-15-2022 ambulatory Marlee Almanza TECHNICAL SALES ASSOCIATE.CNM Work Phone: OB/Gynecology Comment on above: Questions Start: 10-09-2022 Telephone encounter Jeana acuna TECHNICAL SALES ASSOCIATE.MOLD CARRIER Work Phone: Occupational Health Comment on above: [facility] Start: 10-08-2022 Telephone encounter Krystal jerome PA-C Work Phone: Occupational Health Comment on above: [facility] Start: 10-04-2022 Telephone encounter Agueda bell MD Work Phone: Occupational Health Comment on above: [facility] Start: 08-04-2022 End: 08-04-2022 Patient encounter procedure Anne-Marie Chacon TECHNICAL SALES ASSOCIATE.MOLD CARRIER Work Phone: [facility] Comment on above: Viral URI with cough (Primary Dx) Start: 05-15-2022 End: 05-20-2022 Encounter for general adult medical examination without abnormal findings DR. WILLA ROGERS DO Facility:B Start: 05-15-2022 End: 05-20-[address] WILLA ROGERS DO Facility:B Start: 04-25-2022 ambulatory Marlee Almanza APRN.CNM Work Phone: OB/Gynecology Comment on above: Diflucan Start: 03-07-2022 Refill Marlee Almanza TECHNICAL SALES ASSOCIATE.CNM Work Phone: OB/Gynecology Comment on above: Refill Request Start: 12-26-2021 ambulatory Marlee Almanza TECHNICAL SALES ASSOCIATE.CNM Work Phone: OB/Gynecology Comment on above: Back to work request Start: 12-26-2021 End: 12-26-2021 Patient encounter procedure Marlee Almanza TECHNICAL SALES ASSOCIATE.CNM Work Phone: OB/Gynecology Comment on above: care and examination (Primary Dx); Encounter for initial prescription of contraceptive pills Start: 11-24-2021 ambulatory Marlee Almanza APRN.CNM Work Phone: OB/Gynecology Comment on above: Ob Delivery Note Start: 11-23-2021 ambulatory Marlee Almanza APRN.CNM Work Phone: [facility] Start: 11-23-2021 Patient encounter procedure Marlee Almanza APRN.CNM Work Phone: OB/Gynecology Comment on above: Appointment Start: 11-16-2021 End: 11-18-2021 Evaluation and management of inpatient [facility] Start: 11-14-2021 End: 11-14-2021 Patient encounter procedure Marlee Almanza APRN.CNRuma Work Phone: OB/Gynecology Comment on above: 36 weeks gestation o f (Primary Dx); Uterine size-date discrepancy, third trimester Start: 11-07-2021 End: 11-08-2021 Patient encounter procedure [facility], Outpatients Start: 10-31-2021 End: 10-31-2021 Patient encounter procedure Marlee Almanza APRN.CNRuma Work Phone: OB/Gynecology Comment on above: 34 weeks gestation o f (Primary Dx) Start: 10-28-2021 End: 10-28-2021 Subsequent hospital visit by physician Provider [facility] Comment on above: OB CHECK 34 WEEKS Start: 10-26-2021 Telephone encounter Erendira zepeda MD Work Phone: OB/Gynecology Comment on above: Letter Start: 10-25-2021 End: 10-25-2021 Patient encounter procedure Erendira Hayes MD Work Phone: OB/Gynecology Comment on above: 33 weeks gestation o f (Primary Dx); Short interval between pregnancies affecting , antepartum; Supervision of other normal , antepartum; Threatened premature labor in third trimester Start: 10-23-2021 ambulatory Erendira Andres Work Phone: [facility] Start: 10-23-2021 Patient encounter procedure Erendira Hayes MD Work Phone: OB/Gynecology Comment on above: Appointment Start: 10-23-2021 Telephone encounter Erendira zepeda MD Work Phone: OB/Gynecology Comment on above: Patient Update Start: 10-21-2021 End: 10-23-2021 Evaluation and management of inpatient DR. JANICE SUÁREZ MD. Facility:A Start: 10-20-2021 End: 10-23-2021 Evaluation and management of inpatient JANICE SUÁREZ MD [facility] Start: 10-20-2021 ambulatory Marlee Almanza APRN.CN Work Phone: OB/Gynecology Comment on above: Forgot to schedule Start: 10-18-2021 End: 10-18-2021 Patient encounter procedure Nelly Shipley MD Work Phone: Maternal Medicine Comment on above: Uterine size date di screpancy, third trimester (Primary Dx); 32 weeks gestation of Start: 10-07-2021 End: 10-07-2021 Patient encounter procedure [facility] Start: 10-06-2021 End: 10-06-2021 Patient encounter procedure Erendira Hayes MD Work Phone: OB/Gynecology Comment on above: 31 weeks gestation o f (Primary Dx); Short interval between pregnancies affecting , antepartum; Pelvic pain during ; Supervision of other normal , antepartum Start: 09-18-2021 End: 09-18-2021 ambulatory GLENN ZAVALA MD Facility:A Start: 09-18-2021 End: 09-18-2021 SAME DAY STAY GLENN ZAVALA MD [facility] Start: 04-25-2021 Patient encounter procedure Bradford Mario DO Work Phone: [facility] Start: 04-25-2021 Progress Note Bradford Liao Work Phone: [facility] Start: 04-13-2021 End: 12-26-2021 Patient requested procedure Erendira Hayes MD Work Phone: [facility] Work Phone: Procedures Date Procedure Procedure Detail Performing Clinician Start: 03-16-2025 Us preg uterus after 1st trimest 07/15 gestation Marlee Almanza TECHNICAL SALES ASSOCIATE.CNM Work Phone: Start: 10-06-2024 Us preg uterus after 1st trimest 07/15 gestation Marlee Almanza APRN.CNM Work Phone: Start: 10-05-2024 Antibody screen SHERITA MADDOX Comment on above: Order Comment: Speci men Type: BLOOD SPECIMEN Ordering Facility: [facility] Address: [address] [place] [address] Performed By: #### T SPN #### [facility] CLIA [id number] [place] Start: 09-08-2024 BACTERIAL VAGINOSIS NAAT Marlee Almanza APRN.CNM Work Phone: Start: 09-08-2024 Iadna chlamydia trac homatis amplified probe tq Marlee Almanza APRN.CNM Work Phone: Start: 09-08-2024 Us uterus l imited fetuses Marlee Almanza APRN.CNM Work Phone: Start: 01-02-2023 Iadna trichomonas [facility] amplified probe tech Marlee Almanza APRN.CNM Work Phone: Start: 12-17-2022 Throat culture Anjali syed TECHNICAL SALES ASSOCIATE.MOLD CARRIER Work Phone: Start: 12-17-2022 RAPID STREP TEST B/O Shyam Bynum TECHNICAL SALES ASSOCIATE.MOLD CARRIER Work Phone: Start: 11-14-2021 URINE OB DIP B/O Maria R Almanza APRN.CNM Work Phone: Start: 11-08-2021 Urine culture Start: 10-31-2021 URINE OB DIP B/O Maria R Almanza APRN.CNM Work Phone: Start: 10-28-2021 AMNISURE ROM (UNION) Flash Kowalski DO Work Phone: Start: 10-28-2021 URINALYSIS, DIPSTICK ONLY Marlee Kowalski DO Work Phone: Start: 10-28-2021 URINALYSIS, WITH MICROSCOPIC Marlee Kowalski DO Work Phone: Start: 10-25-2021 URINE OB DIP B/O Erendira locke MD Work Phone: Start: 10-18-2021 Us preg uterus after 1st trimest 07/15 gestation Erendira Hayes MD Work Phone: Start: 10-07-2021 Group B Streptococcu s Culture Start: 10-06-2021 URINE OB DIP B/O Erendira locke MD Work Phone: Start: 10-06-2021 Bacteria identified in Urine by Culture Start: 08-14-2020 Adult depression scr eening assessment Erendira Hayes MD Work Phone: Structure of wisdom tooth (body structure) GLENN ZAVALA MD Plan of Treatment Date Care Activity Detail Author Start: 2067 RSV Vaccine (1 - 1-d ose 75+ series) RSV Vaccine (1 - 1-dose 75+ series) [facility] Start: 09-16-2031 Urine microalbumin profile [facility] Start: 01-03-2028 HPV TESTING HPV TESTING [facility] Start: 01-03-2028 PAP TESTING PAP TESTING [facility] Start: 01-03-2028 Screening for malign ant neoplasm of cervix [facility] Start: 02-07-2026 HPV TESTING HPV TESTING [facility] Start: 02-07-2026 PAP TESTING PAP TESTING [facility] Start: 03-30-2025 End: 03-30-2025 Patient encounter procedure 03/30/2025 10:00 AM EDT Routine Office Visit OB/Gynecology [address] [place] [place] [address] Marlee Almanza APRN.CNM [address] [place] [address] (Fax) Growth OB/Gynecology Comment on above: Growth Start: 03-22-2025 End: 03-22-2025 Patient encounter procedure 03/22/2025 11:15 AM EDT Routine Office Visit OB/Gynecology [address] [place] [address] Marlee Almanza APRN.CNM [address] [place] [address] (Fax) Growth OB/Gynecology Comment on above: Growth Start: 03-17-2025 Nonstress test [facility] Start: 03-17-2025 Obstetric monitoring [facility] Start: 03-17-2025 Vital signs measurements [facility] Start: 03-17-2025 [facility] Start: 03-17-2025 Patient discharge [facility] Start: 03-16-2025 End: 03-16-2025 Patient encounter procedure 03/16/2025 11:00 AM EDT Routine Office Visit [facility] [address] [facility] [address] [place] [address] Growth [facility] Comment on above: Growth Start: 03-15-2025 Influenza vaccination [facility] Start: 03-15-2025 RSV Vaccine (1 - Ris k 1-dose series) RSV Vaccine (1 - Risk 1-dose series) [facility] Start: 03-05-2025 End: 03-05-2025 Patient encounter procedure 03/05/2025 2:30 PM EDT Routine Office Visit OB/Gynecology [address] [place] [address] Marlee Almanza APRN.CNM [address] [place] [address] (Fax) OB OB/Gynecology Comment on above: OB Start: 03-05-2025 End: 03-05-2026 OBSTETRIC ULTRASOUND WHI OBSTETRIC ULTRASOUND WHI Anc Imaging Routine Uterine size-date discrepancy, third trimester (HCC) Expected: 03/05/2025, Expires: 03/05/2026 [facility] Work Phone: Comment on above: Expected: 03/05/2025 , Expires: 03/05/2026 Start: 02-22-2025 End: 05-23-2025 ANEMIA REFLEX PANEL [facility] Work Phone: Comment on above: Expected: 02/22/2025 , Expires: 05/23/2025 Start: 02-22-2025 End: 02-22-2025 Patient encounter procedure 02/22/2025 1:30 PM EDT Routine Office Visit OB/Gynecology [address] [place] [id number] Marlee Almanza APRN.CNM [address] [place] [address] OB, ok per [facility] OB/Gynecology Comment on above: OB, ok per [facility] Start: 02-11-2025 End: 02-11-2025 Patient encounter procedure 02/11/2025 9:15 AM EDT Routine Office Visit OB/Gynecology [address] [place] [address] Marlee Almanza APRN.CNM [address] [place] [place] [address] OB OB/Gynecology Comment on above: OB Start: 02-05-2025 End: 02-05-2025 ambulatory 02/05/2025 11:30 AM EDT [facility] [address] [place] [place] [phone] Samaria Haji, TECHNICAL SALES ASSOCIATE.MOLD CARRIER [address] [place] [place] [phone] Psychiatry Start: 01-29-2025 End: 04-30-2025 ANEMIA REFLEX PANEL ANEMIA REFLEX PANEL Lab Routine 23 weeks gestation of ([facility]) Supervision of high risk in second trimester ([facility]) Expected: 01/29/2025 (Approximate), Expires: 04/30/2025 [facility] Comment on above: Expected: 01/29/2025 (Approximate), Expires: 04/30/2025 Start: 01-29-2025 End: 12-30-2025 GESTATIONAL GLUCOSE SCREEN, 1-HOUR, 50 GRAM, NON-FASTING GESTATIONAL GLUCOSE SCREEN, 1-HOUR, 50 GRAM, NON-FASTING Lab Routine Screening for diabetes mellitus Expected: 01/29/2025 (Approximate), Expires: 12/30/2025 [facility] Work Phone: Comment on above: Expected: 01/29/2025 (Approximate), Expires: 12/30/2025 Start: 01-29-2025 End: 12-30-2025 SYPHILIS TREPONEMAL W/REFLEX SYPHILIS TREPONEMAL W/REFLEX Lab Routine 23 weeks gestation of ([facility]) Supervision of high risk in second trimester ([facility]) Expected: 01/29/2025 (Approximate), Expires: 12/30/2025 [facility] Comment on above: Expected: 01/29/2025 (Approximate), Expires: 12/30/2025 Start: 01-25-2025 End: 01-25-2025 Patient encounter procedure 01/25/2025 1:45 PM EDT Routine Office Visit OB/Gynecology [address] [place] [address] Marlee Almanza APRN.CN [address] [place] [address] OB OB/Gynecology Comment on above: OB Start: 12-30-2024 End: 12-30-2024 Patient encounter procedure 12/30/2024 1:15 PM EDT Routine Office Visit OB/Gynecology [address] [place] [address] Marlee Almanza APRN.CNM [address] [place] [address] OB OB/Gynecology Comment on above: OB Start: 12-01-2024 End: 12-01-2024 Patient encounter procedure Maternal Medicine Comment on above: Anatomy Scan OB Routine Start: 11-12-2024 End: 11-12-2024 [facility] 11/12/2024 11:00 AM EDT [facility] [address] [place] [phone] Samaria Haji, TECHNICAL SALES ASSOCIATE.MOLD CARRIER [address] [place] [address] Provider Ordered Follow Up Psychiatry Comment on above: Provider Ordered Fol low Up Start: 11-03-2024 End: 11-03-2024 Patient encounter procedure Maternal Medicine Comment on above: CL check US 16w OB Routine Start: 10-30-2024 End: 10-30-2024 Follow-up encounter 10/30/2024 2:30 PM EDT [facility] [address] [place] [phone] Samaria Haji, TECHNICAL SALES ASSOCIATE.MOLD CARRIER [address] [place] [address] 2 month follow up Psychiatry Comment on above: 2 month follow up Start: 10-06-2024 End: 01-05-2025 Chromosome 21 trisomy [Presence] in Blood or Tissue by Cytogenetics [facility] Work Phone: Comment on above: Expected: 10/06/2024 , Expires: 01/05/2025 Start: 10-06-2024 End: 10-06-2024 Patient encounter procedure Maternal Medicine Comment on above: Nuchal OB Routine Start: 09-16-2024 End: 09-16-2024 [facility] 09/16/2024 4:30 PM EST [facility] [address] [place] [address] Samaria Haji, TECHNICAL SALES ASSOCIATE.MOLD CARRIER [address] [place] [address] PROVIDER ORDERED FOLLOW UP TO DISCUSS MEDICATION Psychiatry Comment on above: PROVIDER ORDERED FOL LOW UP TO DISCUSS MEDICATION Start: 09-08-2024 End: 12-08-2024 ANEMIA REFLEX PANEL ANEMIA REFLEX PANEL Lab Routine 7 weeks gestation of Expected: 09/08/2024, Expires: 12/08/2024 [facility] Work Phone: Comment on above: Expected: 09/08/2024 , Expires: 12/08/2024 Start: 09-08-2024 End: 12-08-2024 Hemoglobin A1c in Blood HEMOGLOBIN A1C Lab Routine 7 weeks gestation of Expected: 09/08/2024, Expires: 12/08/2024 [facility] Comment on above: Expected: 09/08/2024 , Expires: 12/08/2024 Start: 09-08-2024 End: 12-08-2024 Hepatitis B virus surface Ag [Presence] in Serum HEPATITIS B SURFACE ANTIGEN Lab Routine 7 weeks gestation of Expected: 09/08/2024, Expires: 12/08/2024 [facility] Comment on above: Expected: 09/08/2024 , Expires: 12/08/2024 Start: 09-08-2024 End: 12-08-2024 Hepatitis C virus Ab [Presence] in Serum HEPATITIS C ANTIBODY IA WITH CONFIRMATION Lab Routine 7 weeks gestation of Expected: 09/08/2024, Expires: 12/08/2024 [facility] Comment on above: Expected: 09/08/2024 , Expires: 12/08/2024 Start: 09-08-2024 End: 12-08-2024 HIV 1+2 Ab [Presence] in Serum or Plasma by Immunoassay HIV 1/2 COMBO WITH REFLEX TO DIFFERENTIATION Lab Routine 7 weeks gestation of Expected: 09/08/2024, Expires: 12/08/2024 [facility] Comment on above: Expected: 09/08/2024 , Expires: 12/08/2024 Start: 09-08-2024 End: 09-08-2025 OBSTETRIC ULTRASOUND WHI OBSTETRIC ULTRASOUND WHI Anc Imaging Routine 7 weeks gestation of Expected: 09/08/2024, Expires: 09/08/2025 [facility] Comment on above: Expected: 09/08/2024 , Expires: 09/08/2025 Start: 09-08-2024 End: 12-08-2024 RUBELLA IGG ANTIBODY RUBELLA IGG ANTIBODY Lab Routine 7 weeks gestation of Expected: 09/08/2024, Expires: 12/08/2024 [facility] Comment on above: Expected: 09/08/2024 , Expires: 12/08/2024 Start: 09-08-2024 End: 12-08-2024 SYPHILIS TREPONEMAL W/REFLEX SYPHILIS TREPONEMAL W/REFLEX Lab Routine 7 weeks gestation of Expected: 09/08/2024, Expires: 12/08/2024 [facility] Comment on above: Expected: 09/08/2024 , Expires: 12/08/2024 Start: 09-08-2024 End: 12-08-2024 TYPE + SCREEN TYPE + SCREEN Blood Bank Routine 7 weeks gestation of Expected: 09/08/2024, Expires: 12/08/2024 [facility] Comment on above: Expected: 09/08/2024 , Expires: 12/08/2024 Start: 09-08-2024 End: 09-08-2024 Patient encounter procedure 09/08/2024 1:00 PM EST Initial Office Visit OB/Gynecology [address] [place], [place] [id number] Marlee Almanza APRN.CNM [address] [place] [place] [address] New OB LMP 1/2 OB/Gynecology Comment on above: New OB LMP 1/2 Start: 08-28-2024 End: 08-28-2024 Telephone follow-up 08/28/2024 2:30 PM EST [facility] [address] [place] [phone] Samarai Haji, TECHNICAL SALES ASSOCIATE.MOLD CARRIER [address] [place] [place] [place] [phone] follow up-see phone note 08/14 Psychiatry Comment on above: follow up-see phone note 08/14 Start: 07-13-2024 End: 07-13-2024 Follow-up encounter 07/13/2024 1:00 PM EST [facility] [address] [place] [address] Samaria Haji, TECHNICAL SALES ASSOCIATE.MOLD CARRIER [address] [place] [place] [phone] 2 month follow up Psychiatry Comment on above: 2 month follow up Start: 05-04-2024 End: 05-04-2024 Follow-up encounter 05/04/2024 1:30 PM EDT [facility] [address] [place] [address] Samaria Haji, TECHNICAL SALES ASSOCIATE.MOLD CARRIER [address] [place] [address] follow up 3 month Psychiatry Comment on above: follow up 3 month Start: 03-15-2024 Covid-19 Vaccine ( season) Covid-19 Vaccine ( season) [facility] Start: 03-15-2024 Influenza vaccination Influenza Vacc ine (#1) [facility] Start: 02-08-2024 PAP TESTING PAP TESTING [facility] Start: 01-31-2024 End: 01-31-2024 ambulatory 01/31/2024 1:30 PM EDT [facility] [address] [place] [address] Samaria Haji, TECHNICAL SALES ASSOCIATE.MOLD CARRIER [address] [place] [phone] 2-3 month F/U Psychiatry Comment on above: 2-3 month F/U Start: 01-17-2024 End: 01-17-2024 Follow-up encounter 01/17/2024 9:30 AM EDT [facility] [address] [place] [place] [phone] Samaria Haji, TECHNICAL SALES ASSOCIATE.MOLD CARRIER [address] [facility] [place] [address] 2 TO 3 MONTH FOLLOW UP Psychiatry Comment on above: 2 TO 3 MONTH FOLLOW UP Start: 01-03-2024 Screening for malign ant neoplasm of cervix Cervical Cancer Screening [facility] Start: 11-29-2023 End: 11-29-2023 Patient encounter procedure Radiology Comment on above: Pelvic U/S Irregular bleeding Start: 11-26-2023 End: 11-26-2023 Patient encounter procedure 11/26/2023 4:20 PM EDT Office Visit [facility] [address] [place] [address] [place] [phone] Sherita Mejia PA-C [address] [place] [address] [place] [address] full skin check [facility] Comment on above: full skin check Start: 07-15-2023 Depression Assessment Depression Ass essment [facility] Start: 03-15-2023 Covid-19 Vaccine ( season) Covid-19 Vaccine ( season) [facility] Start: 03-15-2023 Influenza vaccination [facility] Start: 10-04-2022 End: 10-18-2022 SARS-CoV-2 (COVID-19) RNA [Presence] in Respiratory specimen by NIGHAT with probe detection CAREGIVER COVID19 Microbiology Routine Suspected 2019 novel coronavirus infection Expected: 10/04/2022, Expires: 10/18/2022 [facility] Work Phone: Comment on above: Expected: 10/04/2022 , Expires: 10/18/2022 Start: 07-15-2022 DEPRESSION ASSESSMENT DEPRESSION ASS ESSMENT [facility] Start: 03-15-2022 Influenza vaccination INFLUENZA (#1) [facility] Start: 11-07-2021 Iv infusion hydratio n each additional hour HYDRATE IV INFUSION ADD-ON [facility] Work Phone: Start: 11-07-2021 Iv infusion hydratio n initial 31 min-1 hour HYDRATION IV INFUSION INIT [facility] Work Phone: Start: 10-07-2021 Group B Streptococcu s Culture Group B Streptococcus Culture [facility] Work Phone: Start: 10-06-2021 Bacteria identified in Urine by Culture Urine Culture [facility] Work Phone: Start: 10-06-2021 Urine culture Urine Culture [facility] Work Phone: Start: 08-14-2021 Adult depression screening assessment DEPRESSION SCREENING [facility] Start: 07-15-2021 DEPRESSION ASSESSMENT DEPRESSION ASS ESSMENT [facility] Start: 03-27-2011 HPV VACCINE (2 - 3-d ose series) HPV VACCINE (2 - 3-dose series) [facility] Start: 2010 Depression Screening Depression Scre ening [facility] Start: 1997 COVID-19 VACCINE (#1) COVID-19 VACCI NE (#1) [facility] Start: 1997 COVID-19 VACCINE (1) COVID-19 VACCIN E (1) [facility] Start: 1992 COVID-19 VACCINE (#1) COVID-19 VACCI NE (#1) [facility] Bacteria identified in Throat by Culture THROAT CULTURE Microbiology Routine Sore throat Ordered: 12/17/2022 [facility] Work Phone: Comment on above: Ordered: 12/17/2022 BACTERIAL VAGINOSIS NAAT BACTERIAL VAGINOSIS NAAT Lab Routine Encounter for gynecological examination (general) (routine) without abnormal findings Vaginal discharge 01/02/2023 1:48 PM EDT [facility] Work Phone: Chlamydia trachomatis+Neisseria gonorrhoeae DNA [Presence] in Unspecified specimen by NIGHAT with probe detection GONORRHEA/CHLAMYDIA NAAT Lab Routine Encounter for gynecological examination (general) (routine) without abnormal findings Vaginal discharge Screening examination for STD (sexually transmitted disease) 01/02/2023 1:48 PM EDT [facility] Work Phone: OBSTETRIC ULTRASOUND WHI OBSTETRIC ULTRASOUND WHI Anc Imaging Routine 36 weeks gestation of Uterine size-date discrepancy, third trimester Ordered: 11/14/2021 [facility] Work Phone: Comment on above: Ordered: 11/14/2021 End: 09-08-2025 OBSTETRIC ULTRASOUND WHI OBSTETRIC ULTRASOUND WHI Anc Imaging Routine 7 weeks gestation of History of labor Every other week for 4 Occurrences starting 09/08/2024 until 09/08/2025 [facility] Comment on above: Every other week for 4 Occurrences starting 09/08/2024 until 09/08/2025 PAP TEST PAP TEST Lab Kurt jacobs Atypical squamous cells of undetermined significance (ASCUS) on Papanicolaou smear of cervix 01/02/2023 1:48 PM EDT [facility] Work Phone: Patient Education Kick [facility] ED False Labor OB Triage: Return to Hospital or Notify Physician if you Experience: [facility] Work Phone: Patient referral [facility] Work Phone: ROUTINE, GR OUP B STREP PCR ROUTINE, GROUP B STREP PCR Microbiology Routine 36 weeks gestation of 11/14/2021 12:25 PM EDT [facility] Work Phone: SURGICAL PATHOLOGY SURGICAL PATH OLOGY Lab Routine Neoplasm of unspecified behavior of bone, soft tissue, and skin 09/30/2023 3:57 PM EDT [facility] Work Phone: End: 12-05-2024 US Pelvis transvaginal US FEMALE PELVIS TRANSVAG Radiology Routine Abnormal uterine bleeding (AUB) 1 Occurrences starting 11/06/2023 until 12/05/2024 [facility] Work Phone: Comment on above: 1 Occurrences starti ng 11/06/2023 until 12/05/2024 [facility] Immunizations Immunization Date Immunization Notes Care Provider Casi ricci 05-02-2023 influenza virus vaccine, unspecified formulation Supriya Valdovinos [facility] 09-15-2021 tetanus toxoid, redu krupa diphtheria toxoid, and acellular pertussis vaccine, adsorbed Erendira Hayes MD Work Phone: [facility] 04-20-2021 influenza virus vaccine, unspecified formulation Samaria Marlyn SARAVIA Work Phone: [facility] 10-25-2020 tetanus toxoid, redu krupa diphtheria toxoid, and acellular pertussis vaccine, adsorbed Erendira Hayes MD Work Phone: [facility] Work Phone: 04-03-2019 influenza, injectabl e, quadrivalent, preservative free Erendira Hayes MD Work Phone: [facility] Work Phone: 03-31-2018 influenza, injectabl e, quadrivalent, preservative free Erendira Hayes MD Work Phone: [facility] [facility] Work Phone: 12-19-2017 hepatitis A and hepatitis B vaccine Erendira Hayes MD Work Phone: [facility] Work Phone: 12-19-2017 tetanus toxoid, redu krupa diphtheria toxoid, and acellular pertussis vaccine, adsorbed Erendira Hayes MD Work Phone: [facility] Work Phone: 10-22-2017 hepatitis A and hepatitis B vaccine Erendira Hayes MD Work Phone: [facility] Work Phone: 08-01-2017 influenza, injectabl e, quadrivalent, preservative free Erendira Hayes MD Work Phone: [facility] Work Phone: 05-13-2014 influenza, high dose seasonal, preservative-free Erendira Hayes MD Work Phone: [facility] 02-27-2011 hepatitis B vaccine, pediatric or pediatric/adolescent dosage Erendira Hayes MD Work Phone: [facility] Work Phone: 02-27-2011 human papilloma viru s vaccine, quadrivalent Erendira Hayes MD Work Phone: [facility] Work Phone: 04-03-2005 measles, mumps and rubella virus vaccine Erendira Hayes MD Work Phone: [facility] Work Phone: 02-15-2005 diphtheria, tetanus toxoids and pertussis vaccine Erendira Hayes MD Work Phone: [facility] Work Phone: 10-08-1997 diphtheria, tetanus toxoids and pertussis vaccine Erendira Hayes MD Work Phone: [facility] Work Phone: 10-08-1997 poliovirus vaccine, unspecified formulation Erendira Hayes MD Work Phone: [facility] Work Phone: 02-27-1995 diphtheria, tetanus toxoids and pertussis vaccine Erendira Hayes MD Work Phone: [facility] Work Phone: 02-27-1995 haemophilus influenz ae type b vaccine, conjugate unspecified formulation Erendira Hayes MD Work Phone: [facility] Work Phone: 02-27-1995 measles, mumps and rubella virus vaccine Erendira Hayes MD Work Phone: [facility] Work Phone: 02-27-1995 poliovirus vaccine, unspecified formulation Erendira Hayes MD Work Phone: [facility] Work Phone: 04-20-1993 diphtheria, tetanus toxoids and pertussis vaccine Erendira Hayes MD Work Phone: [facility] Work Phone: 04-20-1993 haemophilus influenz ae type b vaccine, conjugate unspecified formulation Erendira Hayes MD Work Phone: [facility] Work Phone: 1992 diphtheria, tetanus toxoids and pertussis vaccine Erendira Hayes MD Work Phone: [facility] Work Phone: 1992 haemophilus influenz ae type b vaccine, conjugate unspecified formulation Erendira Hayes MD Work Phone: [facility] Work Phone: 1992 poliovirus vaccine, unspecified formulation Erendira Hayes MD Work Phone: [facility] Work Phone: 1992 diphtheria, tetanus toxoids and pertussis vaccine Erendira Hayes MD Work Phone: [facility] Work Phone: 1992 haemophilus influenz ae type b vaccine, conjugate unspecified formulation Erendira Hayes MD Work Phone: [facility] Work Phone: 1992 poliovirus vaccine, unspecified formulation Erendira Hayes MD Work Phone: [facility] Work Phone: Payers Date Payer Category Payer Private Health Insurance [id number] 2025 Self-pay [id number] 2024 Medicaid [employer] Member [place] bscriber Plan / Payer (Effective 2024-Present) Name: Marzena Pickering Relation to Subscriber: Self Name: Marzena Pickering Payer ID: [id number] (IC) Type: Medicaid Address: [place] [address] [id number] 2024 Medicaid [id number] 2023 Unknown [id number] 2022 Private Health Insurance [id number] 2021 Unknown [id number] 2021 Unknown [employer] PPO [id number] 2021-Present [phone] [address] [place] [address] PPO [id number] 2020 Unknown [id number] 1992 Unknown [id number] 1992 Unknown [id number] 1992 Unknown [id number] 1992 Unknown [id number] Unknown [id number] Unknown [id number] Unknown [id number] Unknown [id number] Social History Date Type Detail Facility Start: 11-24-2020 End: 08-04-2022 Never smoked tobacco (finding) [facility] Start: 1990 Sex Assigned At Female A [facility] Start: 03-10-2018 End: 08-04-2022 Tobacco use and exposure Smokeless tobacco non-user [facility] Start: 10-06-2021 End: 01-25-2025 Alcohol intake Ex-drinker (finding) [facility] Start: 03-10-2018 History SDOH Alcohol Comment Occasional [facility] Start: 05-19-2020 History SDOH Financial 5 [facility] Start: 05-19-2020 History SDOH Food Worry 1 [facility] Start: 05-19-2020 History SDOH Transpo rt Med 2 [facility] Start: 05-19-2020 Education 17 [facility] Start: 03-16-2021 [facility] Start: 1990 Sex Assigned At Not on file [facility] Start: 09-26-2021 End: 04-19-2022 Exposure to SARS-CoV-2 (event) Not sure [facility] Start: 12-27-2020 End: 11-16-2021 Tobacco smoking status NHIS Unknown if ever smoked [facility] Work Phone: Start: 11-20-2022 End: 01-02-2023 History of Social function [facility] Work Phone: Start: 11-20-2022 End: 01-02-2023 Tobacco use panel [facility] Work Phone: Start: 01-29-2018 How hard is it for y ou to pay for the very basics like food, housing, medical care, and heating Not hard at all [facility] Work Phone: (I/We) worried amelia er (my/our) food would run out before (I/we) got money to buy more. Never true [facility] Work Phone: Start: 07-24-2023 Gender identity Identifies as female gender (finding) [facility] Start: 09-04-2024 Sexual orientation Heterosexual (kailyn cronin) [facility] Goals Date Patient Goal Desired Activity /State Personal health goal Functional Status Date Assessment Result Facility 02-18-2025 Are you deaf, or do you have serious difficulty hearing No 02/18/2025 11:43 PM Soumya Sandy, RON No [facility] 02-18-2025 Are you blind, or do you have serious difficulty seeing, even when wearing glasses No 02/18/2025 11:43 PM Soumya Sandy, RON No [facility] 02-18-2025 Do you have serious difficulty walking or climbing stairs No 02/18/2025 11:43 PM Soumya Sandy, RON No [facility] 02-18-2025 Do you have difficul ty dressing or bathing No 02/18/2025 11:43 PM EDT Soumya Brown, RON No [facility] 02-18-2025 Because of a physica l, mental, or emotional condition, do you have difficulty doing errands alone such as visiting a physician's office or shopping No 02/18/2025 11:43 PM EDT Soumya Brown, RON No [facility] 01-18-2025 Are you deaf, or do you have serious difficulty hearing No 01/18/2025 8:55 AM EDT Navya Ochoa RN No [facility] Work Phone: 01-18-2025 Are you blind, or do you have serious difficulty seeing, even when wearing glasses No 01/18/2025 8:55 AM Navya Titus RN No [facility] 01-18-2025 Do you have serious difficulty walking or climbing stairs No 01/18/2025 8:55 AM Navya Titus RN No [facility] 01-18-2025 Do you have difficul ty dressing or bathing No 01/18/2025 8:55 AM THOMAST Navya Ochoa RN No [facility] 01-18-2025 Because of a physica l, mental, or emotional condition, do you have difficulty doing errands alone such as visiting a physician's office or shopping No 01/18/2025 8:55 AM Navya Titus RN No [facility] 10-23-2021 Functional Status [facility] 10-22-2021 Functional Status [facility] 10-22-2021 Functional Status [facility] 10-22-2021 Functional Status [facility] 10-21-2021 Functional Status [facility] 10-21-2021 Functional Status [facility] 10-20-2021 Functional Status [facility] Mental Status Date Assessment Result Facility 02-18-2025 Because of a physica l, mental, or emotional condition, do you have serious difficulty concentrating, remembering, or making decisions No 02/18/2025 11:43 PM EDT Soumya Brown, RON No [facility] 01-18-2025 Because of a physica l, mental, or emotional condition, do you have serious difficulty concentrating, remembering, or making decisions No 01/18/2025 8:55 AM EDT Navya Ochoa, RON No [facility] 10-23-2021 Mental Status [facility] Clinical Notes 12-26-2020 to 03-23-2025 Telephone Encounter - Anjali Guzmán RN - 03/23/2025 12:28 PM EDTTelephone Encounter - Anjali Guzmán RN - 03/23/2025 12:28 PM EDTCMarlee frederick APRN.CN - 03/05/2025 2:42 PM EDT Note Date & Type Note Facility 03-23-2025 Telephone encount er Note Day # 5 since COVID19 symptom onset. Caregiver approved to return to work tomorrow for COVID19 absence per survey. Leadership notified. Doc flowsheets updated. Anjali Guzmán RN [facility] 03-23-2025 Miscellaneous Notes Formattin g of this note might be different from the original. Day # 5 since COVID19 symptom onset. Caregiver approved to return to work tomorrow for COVID19 absence per survey. Leadership notified. Doc flowsheets updated. Anjali Guzmán RN documented in this encounter [facility] 03-20-2025 Telephone encount er Note Images from the original note were not included. Positive Caregiver COVID Call Patient Name: Marzena Pickering Primary Care Physician: Willa Domingo DO Service Date: 03/20/2025 Service Time: 3:28 PM Positive Caregiver COVID Call Marzena Pickering Lab Results Component Value Date COVID19 Not detected 09/01/2024 Covid Immunization Dates This patient has no relevant Health Maintenance data. COVID Symptom Onset: 03/18/25 -Best email for electronic communication: [email or web address]; -Email sent to leadership: [email or web address] - Employee ID: [id number] Plan - Discussed positive COVID19 result. Reinforced self-isolation, avoiding public areas and gatherings. Mask while home with family and not isolated alone - Advised no work until cleared by Occupational Health. Clearance will be provided through RTW COVID19 questionnaire sent through [employer], followed by clearance email sent to rehabilitation manager (emails will be sent Saturday through Saturday) - Advised to contact PCP regarding positive test result/symptom management - Advised to seek evaluation by primary care provider, [facility], [facility] Online, or ED with worsening or escalating symptoms. - Provided with caregiver follow-up email to preferred e-mail - Advised to call the COVID Hotline with outstanding questions/comments/concerns. Signature: Jessy Segura RN Patient Name: Marzena Pickering Date: 03/20/2025 Time: 3:29 PM Pager/Contact: [phone] [facility] 03-20-2025 Miscellaneous Notes Formattin g of this note is different from the original. Images from the original note were not included. Positive Caregiver COVID Call Patient Name: Marzena Pickering Primary Care Physician: Willa Domingo DO Service Date: 03/20/2025 Service Time: 3:28 PM Positive Caregiver COVID Call Marzena Pickering Lab Results Component Value Date COVID19 Not detected 09/01/2024 Covid Immunization Dates This patient has no relevant Health Maintenance data. COVID Symptom Onset: 03/18/25 -Best email for electronic communication: [email or web address]; -Email sent to leadership: [email or web address] - Employee ID: [id number] Plan - Discussed positive COVID19 result. Reinforced self-isolation, avoiding public areas and gatherings. Mask while home with family and not isolated alone - Advised no work until cleared by Occupational Health. Clearance will be provided through RTW COVID19 questionnaire sent through [employer] message, followed by clearance email sent to rehabilitation manager (emails will be sent Saturday through Saturday) - Advised to contact PCP regarding positive test result/symptom management - Advised to seek evaluation by primary care provider, [facility] Care, [facility] Online, or ED with worsening or escalating symptoms. - Provided with caregiver follow-up email to preferred e-mail - Advised to call the [employer] Hotline with outstanding questions/comments/concerns. Signature: Jessy Segura RN Patient Name: Marzena Pickering Date: 03/20/2025 Time: 3:29 PM Pager/Contact: [phone] documented in this encounter [facility] 03-17-2025 History and physi nirmal note [facility] 03-16-2025 Note Indication Evaluation of growth. Uterine size versus dates discrepancy. Impression Follow-up assessment of growth secondary to clinical size-dates discrepancy. - Single, live, intrauterine . - presentation is cephalic. - The biometry is consistent with the assigned gestational dating. - The EFW is 2549 g, at the 52%. AC is at the 79%. - Amniotic fluid volume is normal amount with an MVP of 4.2 cm and TORSTEN of 10.4 cm. - The placenta is fundal. - No malformations visualized on a limited survey as detailed below. Repeat sonographic assessment will be performed if clinically indicated. Thank you for the referral. Recommendations As above Maternal Assessment Height 165 cm Height (ft) 5 ft Height (in) 5 in Physical Exam Initial weight (lb) 137 lb Initial BMI 22.80 kg/m Method Transabdominal ultrasound examination [place] . Number of fetuses: 1 Dating LMP on: 07/16/2024 GA by LMP 34 w + 5 d NIKKI by LMP: 04/22/2025 GA by prior assessment 34 w + 5 d NIKKI by prior assessment: 04/22/2025 Ultrasound examination on: 03/16/2025 GA by U/S based upon: AC, BPD, Femur, HC GA by U/S 34 w + 5 d NIKKI by U/S: 04/22/2025 Assigned: based on stated NIKKI, selected on 10/06/2024 Assigned GA 34 w + 5 d Assigned NIKKI: 04/22/2025 General Evaluation Cardiac activity present. FHR 136 bpm. movements: present. Presentation: cephalic Placenta: Placental site: fundal Umbilical cord: Cord vessels: normal insertion Amniotic fluid: Amount of AF: normal amount. MVP 4.2 cm. TORSTEN 10.4 cm. Q1 0.0 cm, Q2 4.2 cm, Q3 3.3 cm, Q4 2.9 cm Growth Overview Exam date GA BPD (mm) HC (mm) AC (mm) FL (mm) HL (mm) EFW (g) 12/01/2024 19w 5d 43.2 24% 163.7 30% 147.9 57% 29.3 38% 28.9 41% 296 33% 03/16/2025 34w 5d 86.2 53% 321.7 63% 316.6 79% 64.1 22% 2549 52% Biometry Standard BPD 86.2 mm 34w 5d 53% Hadlock OFD 114.6 mm 35w 6d 68% Nicolaides HC 321.7 mm 35w 3d 63% Etta AC 316.6 mm 35w 4d 79% Hadlock Femur 64.1 mm 32w 6d 22% Etta EFW 2,549 g 34w 6d 52% Hadlock EFW (lb) 5 lb EFW (oz) 10 oz EFW by: Hadlock ([id number]) Extended Account Underwriter 3.6 mm Extremities / Bony Struc FL / HC 0.20 Other Structures FHR 136 bpm Anatomy Lateral ventricles: normal Cavum septi pellucidi: normal Cerebellum: normal Cisterna magna: normal Lips: normal Nose: normal 4-chamber view: normal RVOT view: suboptimally visualized LVOT view: suboptimally visualized 3-vessel view: suboptimally visualized Heart / Thorax Situs: situs solitus (normal) Diaphragm: normal Stomach: normal Kidneys: normal Bladder: normal Wants to know sex: yes Performed By: Kailyn Dobbs RDMS Read By: Chris Villafana M.D. [facility] 03-05-2025 Note HNO ID: [id number] Author: MARLEE ALMANZA APRN.SEBASTIAN Service: ? Author Type: It Infrastructure Specialist Type: Progress Notes Filed: 03/05/2025 14:55 Note Text: ALIX-S: Marzena Pickering is a 34 year old female who presents at 33w1d with NIKKI:04/22/2025, by Last Menstrual Period for a routine visit. Denies headache, visual changes, chest pain, shortness of breath, vaginal bleeding, leakage of fluid, or dysuria. O: See flow sheet Gen: No apparent distress Abd: Gravid, nontender S>D, 31lb TWG, uncertain presentation ASSESSMENT/PLAN: 1. Supervision of high risk , antepartum - Continue PNV and ASA 2. 33 weeks gestation of 3. HSV-2 seropositive -suppressive therapy starting at 36 weeks 4. Anxiety and depression -Continues Zoloft 100mg PO once daily, coping well at this time 5. Antepartum anemia complicating in third trimester -Continue PO iron. 6. Heartburn during in third trimester -Taking Omeprazole 7. Uterine size date discrepancy -Growth US - PTL precautions and kick counts reviewed - RTO- 2 weeks or sooner if needed [facility] History of Present illness Narrative ALIX-S: Marzena Pickering is a 34 year old female who presents at 33w1d with NIKKI:04/22/2025, by Last Menstrual Period for a routine visit. Denies headache, visual changes, chest pain, shortness of breath, vaginal bleeding, leakage of fluid, or dysuria. O: See flow sheet Gen: No apparent distress Abd: Gravid, nontender S>D, 31lb TWG, uncertain presentation ASSESSMENT/PLAN: 1. Supervision of high risk , antepartum - Continue PNV and ASA 2. 33 weeks gestation of 3. HSV-2 seropositive -suppressive therapy starting at 36 weeks 4. Anxiety and depression -Continues Zoloft 100mg PO once daily, coping well at this time 5. Antepartum anemia complicating in third trimester -Continue PO iron. 6. Heartburn during in third trimester -Taking Omeprazole 7. Uterine size date discrepancy -Growth US - PTL precautions and kick counts reviewed - RTO- 2 weeks or sooner if needed Marlee Almanza APRN.CNM documented in this encounter [facility] 03-05-2025 Instructions Saul Cherry LPN - 03/05/2025 2:20 PM EDT SEQUENTIAL SCREENINGS The [facility] offers sequential screenings for women who are interested in screenings for chromosomal abnormalities and certain defects during a . The sequential screen combines ultrasound and blood tests to determine the risk of chromosomal abnormalities, including Down's Syndrome (Trisomy 21) and Trisomy 18, as well as open neural tube defects including spina bifida. Ultrasound examination is performed between 11 weeks and 13 weeks gestational age. Blood tests are drawn after the ultrasound and again later in the between 15 and 21 weeks gestational age. Please let your physician know if you are interested in this testing. It will require an appointment with our police service technician. This is not an ultrasound performed by a physician in our office during a routine visit. SIGNS AND SYMPTOMS OF LABOR 1. Contractions every 10 minutes or more often 2. Clear, pink, or brownish fluid (water) leaking from vagina 3. Feeling that baby is pushing down, pressure 4. Low, dull backache 5. Cramps that feel like a period 6. Cramps with or without diarrhea If you notice any of the above symptoms, contact our office at [phone] and ask to speak with a nurse. After hours, you can call doctors registry at [phone] OR call [facility] at [phone] and ask to have the doctor ruby on rails engineer paged. If you consider this an emergency, dial 9-1-1 or go to your nearest emergency department. NEED HELP? Are you dealing with a violent or abusive relationship? Are you a victim of rape or sexual assult? Call [facility] ([facility] 24 hour Crisis Hotline: 140.167.7958 or 222-888-4885. MANUAL Your Guide to a Healthy manual is now on-line. Visit [email or web address] ncyGuide to download your free copy documented in this encounter [facility] 02-23-2025 Telephone encounter Note Reviewed at visit. Marlee Almanza APRN.CNM [facility] 02-23-2025 Miscellaneous Notes Reviewed at visit. Marlee Almanza APRN.CNM documented in this encounter [facility] 02-22-2025 Progress note Formatting of t his note is different from the original. ALIX-S: Marzena Pickering is a 34 year old female who presents at 31w4d with NIKKI:04/22/2025, by Last Menstrual Period for a routine visit. Denies headache, visual changes, chest pain, shortness of breath, vaginal bleeding, leakage of fluid, or dysuria. Seen for contractions, no cervical change and no further contractions, D/C home. Increased chest discomfort and difficulty with nausea. Taking Zofran and Pepcid. O: See flow sheet Gen: No apparent distress Abd: Gravid, nontender ASSESSMENT/PLAN: 1. Supervision of high risk , antepartum - Continue PNV and ASA 2. 31 weeks gestation of 3. HSV-2 seropositive -suppressive therapy starting at 36 weeks 4. Anxiety and depression -Continues Zoloft 100mg PO once daily, coping well at this time 5. Antepartum anemia complicating in third trimester -Continue PO iron. -Repeat CBC and 6. Heartburn during in third trimester -Will stop pepcid, start omeprazole - PTL precautions and kick counts reviewed - RTO- 2 weeks or sooner if needed Marlee Almanza APRN.CNM [facility] 02-22-2025 Miscellaneous Notes ALIX-S: Marzena Pickering is a 34 year old female who presents at 31w4d with NIKKI:04/22/2025, by Last Menstrual Period for a routine visit. Denies headache, visual changes, chest pain, shortness of breath, vaginal bleeding, leakage of fluid, or dysuria. Seen for contractions, no cervical change and no further contractions, D/C home. Increased chest discomfort and difficulty with nausea. Taking Zofran and Pepcid. O: See flow sheet Gen: No apparent distress Abd: Gravid, nontender ASSESSMENT/PLAN: 1. Supervision of high risk , antepartum - Continue PNV and ASA 2. 31 weeks gestation of 3. HSV-2 seropositive -suppressive therapy starting at 36 weeks 4. Anxiety and depression -Continues Zoloft 100mg PO once daily, coping well at this time 5. Antepartum anemia complicating in third trimester -Continue PO iron. -Repeat CBC and 6. Heartburn during in third trimester -Will stop pepcid, start omeprazole - PTL precautions and kick counts reviewed - RTO- 2 weeks or sooner if needed Marlee Almanza APRN.CNM documented in this encounter [facility] 02-22-2025 Instructions Irina Price MA - 02/22/2025 1:34 PM EDT SEQUENTIAL SCREENINGS The [facility] offers sequential screenings for women who are interested in screenings for chromosomal abnormalities and certain defects during a . The sequential screen combines ultrasound and blood tests to determine the risk of chromosomal abnormalities, including Down's Syndrome (Trisomy 21) and Trisomy 18, as well as open neural tube defects including spina bifida. Ultrasound examination is performed between 11 weeks and 13 weeks gestational age. Blood tests are drawn after the ultrasound and again later in the between 15 and 21 weeks gestational age. Please let your physician know if you are interested in this testing. It will require an appointment with our police service technician. This is not an ultrasound performed by a physician in our office during a routine visit. SIGNS AND SYMPTOMS OF LABOR 1. Contractions every 10 minutes or more often 2. Clear, pink, or brownish fluid (water) leaking from vagina 3. Feeling that baby is pushing down, pressure 4. Low, dull backache 5. Cramps that feel like a period 6. Cramps with or without diarrhea If you notice any of the above symptoms, contact our office at [phone] and ask to speak with a nurse. After hours, you can call doctors registry at [phone] OR call [facility] at [phone] and ask to have the doctor ruby on rails engineer paged. If you consider this an emergency, dial 9--1 or go to your nearest emergency department. NEED HELP? Are you dealing with a violent or abusive relationship? Are you a victim of rape or sexual assult? Call [facility] ([place]) 24 hour Crisis Hotline: 208.808.4572 or 010-836-1836. MANUAL Your Guide to a Healthy manual is now on-line. Visit [email or web address] ncyGuide to download your free copy documented in this encounter [facility] 02-18-2025 Note HNO ID: [id number] Author: RUTH TOLLIVER MD Service: Obstetrics Author Type: Resident Type: Procedures Filed: 02/18/2025 23:05 Note Text: Attestation signed by Geo Taylor MD at 02/19/2025 1:52 AM Attending Attestation: I was present for the ultrasound and agree with resident documentation. Signature: Geo Taylor MD Date: 02/19/2025 Time: 1:52 AM BEDSIDE PROCEDURE NOTE US OB LIMITED (POC) LND USE ONLY Date/Time: 02/18/2025 11:05 PM Performed by: Ruth Tolliver MD Authorized by: Geo Taylor MD Limited Ultrasound: 2nd/3rd Trimester Probe used: Endocavitary Indications: Evaluate the cervix Ultrasound Findings: Number of Fetuses: One Fetus: Presentation: Vertex Maternal Structures Uterus: Cervical Length: 4.02cm Conclusion Clinical Gestational age: 31w0d Ultrasound Gestational age: Impression: Other (see comment) Comments: Normal cervical length. Imaging study performed by: Resident/EFRAÍN with Attending supervision Resident Performing Ultrasound: Ruth Tolliver MD Attending Supervising/Performing Ultrasound: Geo Taylor MD Images saved for exam: Yes Images associated with this report can be found under the Get Images tab in Top[employer]. SIGNATURE: Ruth Tolliver MD PATIENT NAME: Marzena Pickering DATE: February 18, 2025 TIME: 11:05 PM [facility] 02-18-2025 Note HNO ID: [id number] Author: RUTH TOLLIVER MD Service: Obstetrics Author Type: Resident Type: Progress Notes Filed: 02/18/2025 23:37 Note Text: Attestation signed by Geo Taylor MD at 02/19/2025 1:54 AM SMITA Attending Note I evaluated the patient and agree with the resident's findings and plan as documented. I have discussed the case and management of the patient's care with the resident. Signature: Geo Taylor MD Date: 02/19/2025 Time: 1:53 AM OBSTETRICS OB ED PROGRESS NOTE SERVICE DATE: February 18, 2025 SERVICE TIME: 9:41 PM Subjective Patient's stated reason for arrival: ctxs and pressure CHIEF COMPLAINT: Contractions HISTORY OF THE PRESENT ILLNESS: The patient is a 34 year old female, , who is at 31w0d with an NIKKI of 04/22/2025, by Last Menstrual Period dating method. Patient is reporting contractions. She states that her contractions started around 4:30 PM. States that were initially every 10 minutes but are now every 3-6 minutes. She denies any leakage of fluid or vaginal bleeding. Denies any changes to odor, color, volume of vaginal discharge. She has not had any recent sexual activity or rigorous exercise. She denies any recent falls or injuries. She denies any dysuria, constipation, or diarrhea. Reports last bowel movement was earlier today. Reports that she was fell up three steps of stairs in 01/15 and was evaluated at that time. She was found to be 0 to 0.5 cm dilation. Her obstetrical history is complicated by anemia of , which she is taking iron tablets for and following with her block piler in [place]. History of threatened labor in G1 that required admission but ultimately delivered at term. She denies leakage of fluid, vaginal bleeding, reports movement. REVIEW OF SYSTEMS: GENERAL: No fever or chills. RESPIRATORY: No shortness of breath. CARDIOVASCULAR: Negative for chest pain or leg swelling. GI: No nausea, vomiting, diarrhea, or constipation. : No history of dysuria, frequency or incontinence FUEL CELL TECHNICIAN: Negative for vaginal bleeding. Objective LAST VITALS: Pulse: 69 BP: 121/71 Resp: 18 Temp: 36 ?C (96.8 ?F) SpO2: 100 % Weight: 78.9 kg (174 lb) SENSITIVE EXAMINATION CONSENT: Participation of a fellow, resident, medical student, or advanced practice provider student in performing the sensitive examination was discussed with the patient or authorized sales representative business courses. The patient or authorized sales representative business courses has agreed to proceed with the sensitive examination. PHYSICAL EXAM: General: Patient sitting comfortably in bed. Lungs: Patient breathing comfortably on room air. Abdomen: Soft, nontender, gravid. Extremities: No edema Pelvic: External genitalia grossly normal in appearance without lesions. Vaginal mucosa with well estrogenized rugae without lesion. Cervix grossly normal in appearance without lesion. Physiologic discharge, nonmalodorous. CERVICAL EXAM: 0.5/50/-2 MONITORING/ASSESSMENT: testing reassuring - see additional documentation Ultrasound: See formal report. Briefly, cervical length 4.02 cm, cephalic presentation. LABS Diagnostic tests reviewed for today's visit: Most recent labs and imaging results. 34 year old EGA:31w0d presenting for contractions Assessment AND Plan contractions (HCC) - Contractions every 1 - 6 minutes, also visualized on tocometer - tracing reassuring - Given cervical dilation of 0.5 cm and >6 uterine contractions within hour, cervical length performed and reassuring - Given cervical length >3 cm, fibronectin not indicated - Received liter of fluids in OB ED - Swabs for GBS, GC/CT, and BV sent - Urine dip negative for urinary tract infection - On 2 hour cervical recheck, cervix unchanged - Given low risk of labor, patient discharged home with return precautions 31 weeks gestation of (HCC) - tracing reassuring - Received care at [place] with block piler, next appointment 02/22 Contributions to note made by medical student: Priti Neal MS4. I have personally seen and examined the patient and performed all medical decision-making components. I have reviewed the medical student documentation with any additions or changes as needed. Physical exam, assessment, and plan were performed and written by me. Plan of care discussed with: Provider, RN, Patient. SIGNATURE: Ruth Tolliver MD PATIENT NAME: Marzena Pickering DATE: February 18, 2025 TIME: 9:41 PM [facility] 02-18-2025 Note HNO ID: [id number] Author: IRLANDA BANKS RN Service: Nursing Author Type: Registered Nurse Type: Procedures Filed: 02/18/2025 21:30 Note Text: Attestation signed by Geo Taylor MD at 02/18/2025 9:45 PM PROVIDER INTERPRETATION: Reactive SIGNATURE: Geo Taylor MD DATE: February 18, 2025 TIME: 9:45 PM OBSTETRICS NST SUMMARY SERVICE DATE: February 18, 2025 The patient is a 34 year old female, , who is at 31w0d with an NIKKI of 04/22/2025, by Last Menstrual Period dating method. NST OBJECTIVE FINDINGS PER NURSE: Start Time: 2052 Complete Time: 2112 (02/18/252112 : Irlanda Banks RN) Indications: R/O PTL Patient Reason For: Monitor baby NST Explanation: yes Acoustic Stimulator: Yes (02/18/252112 : Irlanda Banks RN) Interventions: Other (See Comment) (none) (02/18/252112 : Irlanda Banks RN) MONITORING/ASSESSMENT: Baseline: 130 bpm (02/18/252112 : Irlanda Banks RN) Variability: Moderate (6-25 bpm) (02/18/252112 : Irlanda Banks RN) Accelerations: Present (02/18/252112 : Irlanda Banks RN) Decelerations: Decelerations: None (02/18/252112 : Irlanda Banks RN) Contractions: Irregular (02/18/252112 : Irlanda Banks RN) Frequency: 1-6 (02/18/252112 : Irlanda Banks RN) Above information forwarded to Dr. Taylor (02/18/252112 : Irlanda Banks RN) for final review and interpretation. SIGNATURE: Irlanda Banks RN PATIENT NAME: Marzena Pickering DATE: February 18, 2025 TIME: 9:29 PM [facility] 02-11-2025 Note HNO ID: [id number] Author: MARLEE ALMANZA APRN.SEBASTIAN Service: ? Author Type: It Infrastructure Specialist Type: Progress Notes Filed: 02/11/2025 09:31 Note Text: ALIX-S: Marzena Pickering is a 34 year old female who presents at [id number] NIKKI:04/22/2025, by Last Menstrual Period for a routine visit. Denies headache, visual changes, chest pain, shortness of breath, vaginal bleeding, leakage of fluid, or dysuria. O: See flow sheet Gen: No apparent distress Abd: Gravid, nontender S=D, 37lb TWG ASSESSMENT/PLAN: 1. Supervision of high risk , antepartum - Continue PNV and ASA 2. 30 weeks gestation of 3. HSV-2 seropositive -suppressive therapy starting at 36 weeks 4. History of depression 5. Anxiety and depression -Continues Zoloft 100mg PO once daily, coping well at this time 6. Bleeding of eye, left -Appointment with , will follow up with her if needed. Improving at this time. 7. Antepartum anemia complicating in third trimester -Continue iron supplement -Repeat CBC next visit - PTL precautions and kick counts reviewed - RTO- 2 weeks or sooner if needed Marlee Almanza APRN.CNM [facility] 02-11-2025 History of Present illness Narrative ALIX-S: Marzena Pickering is a 34 year old female who presents at [id number] NIKKI:04/22/2025, by Last Menstrual Period for a routine visit. Denies headache, visual changes, chest pain, shortness of breath, vaginal bleeding, leakage of fluid, or dysuria. O: See flow sheet Gen: No apparent distress Abd: Gravid, nontender S=D, 37lb TWG ASSESSMENT/PLAN: 1. Supervision of high risk , antepartum - Continue PNV and ASA 2. 30 weeks gestation of 3. HSV-2 seropositive -suppressive therapy starting at 36 weeks 4. History of depression 5. Anxiety and depression -Continues Zoloft 100mg PO once daily, coping well at this time 6. Bleeding of eye, left -Appointment with , will follow up with her if needed. Improving at this time. 7. Antepartum anemia complicating in third trimester -Continue iron supplement -Repeat CBC next visit - PTL precautions and kick counts reviewed - RTO- 2 weeks or sooner if needed Marlee Almanza APRN.CNM documented in this encounter [facility] 02-11-2025 Instructions Candelaria Nguyễn MA - 02/11/2025 9:10 AM EDT SEQUENTIAL SCREENINGS The [facility] offers sequential screenings for women who are interested in screenings for chromosomal abnormalities and certain defects during a . The sequential screen combines ultrasound and blood tests to determine the risk of chromosomal abnormalities, including Down's Syndrome (Trisomy 21) and Trisomy 18, as well as open neural tube defects including spina bifida. Ultrasound examination is performed between 11 weeks and 13 weeks gestational age. Blood tests are drawn after the ultrasound and again later in the between 15 and 21 weeks gestational age. Please let your physician know if you are interested in this testing. It will require an appointment with our police service technician. This is not an ultrasound performed by a physician in our office during a routine visit. SIGNS AND SYMPTOMS OF LABOR 1. Contractions every 10 minutes or more often 2. Clear, pink, or brownish fluid (water) leaking from vagina 3. Feeling that baby is pushing down, pressure 4. Low, dull backache 5. Cramps that feel like a period 6. Cramps with or without diarrhea If you notice any of the above symptoms, contact our office at [phone] and ask to speak with a nurse. After hours, you can call doctors registry at [phone] OR call [facility] at [phone] and ask to have the doctor ruby on rails engineer paged. If you consider this an emergency, dial or go to your nearest emergency department. NEED HELP? Are you dealing with a violent or abusive relationship? Are you a victim of rape or sexual assult? Call [facility] ([place]) 24 hour Crisis Hotline: 206.581.2283 or 091-690-4263. MANUAL Your Guide to a Healthy manual is now on-line. Visit [email or web address] ncyGuide to download your free copy documented in this encounter [facility] 01-26-2025 Note HNO ID: [id number] Author: SELAM LOUISE, REGAN Service: ? Author Type: STAGE HAND Type: Progress Notes Filed: 01/26/2025 09:14 Note Text: 1. Conjunctival hemorrhage of left eye (Primary) +diffuse sub-conjunctival heme left eye Could be exacerbated by aspirin (although patient admits to not taking x 1 week) No other ocular health abnormalities upon dilated exam Educated pt on condition which could have been from rubbing, coughing, sneezing, lifting, etc and is self-resolving Recommended artificial as needed for comfort Patient to follow-up if not resolving within 1-2 weeks or if problems reoccurs .I have confirmed and edited as necessary the relevant HPI, ophthalmic history, ROS, and the neuro exam findings as obtained by others. I have seen and examined Marzena Pickering. I have discussed the case and the management of this patient's care with the Resident/Fellow, if applicable. I also have reviewed and agree with the assessment and plan as stated above and agree with all of its relevant components. Selam Louise, OD January 25, 2025 4:00 PM [facility] 01-26-2025 History of Present illness Narrative 1. Conjunctival hemorrhage of left eye (Primary) +diffuse sub-conjunctival heme left eye Could be exacerbated by aspirin (although patient admits to not taking x 1 week) No other ocular health abnormalities upon dilated exam Educated pt on condition which could have been from rubbing, coughing, sneezing, lifting, etc and is self-resolving Recommended artificial as needed for comfort Patient to follow-up if not resolving within 1-2 weeks or if problems reoccurs .I have confirmed and edited as necessary the relevant HPI, ophthalmic history, ROS, and the neuro exam findings as obtained by others. I have seen and examined Marzena Pickering. I have discussed the case and the management of this patient's care with the Resident/Fellow, if applicable. I also have reviewed and agree with the assessment and plan as stated above and agree with all of its relevant components. Selam Louise OD January 25, 2025 4:00 PM documented in this encounter [facility] 01-25-2025 Progress note Formatting of t his note is different from the original. ALIX-S: Marzena Pickering is a 34 year old female who presents at 27w4d with NIKKI:04/22/2025, by Last Menstrual Period for a routine visit. Denies headache, visual changes, chest pain, shortness of breath, vaginal bleeding,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 Period for a routine visit. Denies headache, visual changes, chest pain, shortness of breath, vaginal bleeding, leakage of fluid, or dysuria. Feeling well, no complaints. O: See flow sheet Gen: No apparent distress Abd: Gravid, nontender ASSESSMENT/PLAN: 1. Supervision of high risk , antepartum -Anatomy US tat 20 weeks -Continue PNV and ASA 2. 15 weeks gestation of 3. HSV-2 seropositive -suppressive therapy starting at 36 weeks 4. History of depression 5. Anxiety and depression -Continues Zoloft 100mg PO once daily, coping well at this time PTL precautions reviewed and when to call RTO in 4 weeks Marlee Almanza APRN.CNM documented in this encounter [facility] 11-03-2024 Progress note Formatting of t his note might be different from the original. ALIX-S: Marzena Pickering is a 34 year old female who presents at 15w5d with NIKKI:04/22/2025, by Last Menstrual Period for a routine visit. Denies headache, visual changes, chest pain, shortness of breath, vaginal bleeding, leakage of fluid, or dysuria. Feeling well, no complaints. O: See flow sheet Gen: No apparent distress Abd: Gravid, nontender ASSESSMENT/PLAN: 1. Supervision of high risk , antepartum -Anatomy US tat 20 weeks -Continue PNV and ASA 2. 15 weeks gestation of 3. HSV-2 seropositive -suppressive therapy starting at 36 weeks 4. History of depression 5. Anxiety and depression -Continues Zoloft 100mg PO once daily, coping well at this time PTL precautions reviewed and when to call RTO in 4 weeks Marlee Almanza APRN.CNM [facility] 11-03-2024 Instructions Qian Nichols MA - 11/03/2024 2:21 PM EDT SEQUENTIAL SCREENINGS The [facility] offers sequential screenings for women who are interested in screenings for chromosomal abnormalities and certain defects during a . The sequential screen combines ultrasound and blood tests to determine the risk of chromosomal abnormalities, including Down's Syndrome (Trisomy 21) and Trisomy 18, as well as open neural tube defects including spina bifida. Ultrasound examination is performed between 11 weeks and 13 weeks gestational age. Blood tests are drawn after the ultrasound and again later in the between 15 and 21 weeks gestational age. Please let your physician know if you are interested in this testing. It will require an appointment with our police service technician. This is not an ultrasound performed by a physician in our office during a routine visit. SIGNS AND SYMPTOMS OF LABOR 1. Contractions every 10 minutes or more often 2. Clear, pink, or brownish fluid (water) leaking from vagina 3. Feeling that baby is pushing down, pressure 4. Low, dull backache 5. Cramps that feel like a period 6. Cramps with or without diarrhea If you notice any of the above symptoms, contact our office at [phone] and ask to speak with a nurse. After hours, you can call doctors registry at [phone] OR call [facility] at [phone] and ask to have the doctor ruby on rails engineer paged. If you consider this an emergency, dial 1-5-4 or go to your nearest emergency department. NEED HELP? Are you dealing with a violent or abusive relationship? Are you a victim of rape or sexual assult? Call [facility] ([place]) 24 hour Crisis Hotline: 239.997.7329 or 218-119-5801. MANUAL Your Guide to a Healthy manual is now on-line. Visit [email or web address] ncyGuide to download your free copy documented in this encounter [facility] 10-30-2024 Note HNO ID: [id number] Author: SAMARIA HAJI APRN.MOLD CARRIER Service: ? Author Type: Nurse Practitioner Type: Progress Notes Filed: 10/30/2024 14:41 Note Text: Patient did not log in for her virtual visit with the provider today. [facility] 10-30-2024 History of Present illness Narrative Patient did not log in for her virtual visit with the provider today. documented in this encounter [facility] 10-06-2024 Progress note Formatting of t his note might be different from the original. ALIX-S: Marzena Pickering is a 34 year old female who presents at 11w5d with NIKKI:04/22/2025, by Last Menstrual Period for a routine visit. Denies headache, visual changes, chest pain, shortness of breath, vaginal bleeding, leakage of fluid, or dysuria. Feeling well, no complaints. First trimester anatomy today. O: See flow sheet Gen: No apparent distress Abd: nontender ASSESSMENT/PLAN: 1. Supervision of high risk , antepartum -Continue PNV -Start ASA -NIPT ordered -PN labs drawn 2. Herpes simplex virus (HSV) infection -Start suppressive therapy at 36wk 3. Anxiety and depression -Continue Zoloft 50mg PO once daily 4. 11 weeks gestation of PTL precautions reviewed and when to call RTO in 4 weeks Marlee Almanza APRN.CNM [facility] 10-06-2024 Miscellaneous Notes ALIX-S: Marzena Pickering is a 34 year old female who presents at 11w5d with NIKKI:04/22/2025, by Last Menstrual Period for a routine visit. Denies headache, visual changes, chest pain, shortness of breath, vaginal bleeding, leakage of fluid, or dysuria. Feeling well, no complaints. First trimester anatomy today. O: See flow sheet Gen: No apparent distress Abd: nontender ASSESSMENT/PLAN: 1. Supervision of high risk , antepartum -Continue PNV -Start ASA -NIPT ordered -PN labs drawn 2. Herpes simplex virus (HSV) infection -Start suppressive therapy at 36wk 3. Anxiety and depression -Continue Zoloft 50mg PO once daily 4. 11 weeks gestation of PTL precautions reviewed and when to call RTO in 4 weeks Marlee Almanza APRN.CNM documented in this encounter [facility] 10-06-2024 Note HNO ID: [id number] Author: MARLEE ALMANZA APRN.CNM Service: ? Author Type: It Infrastructure Specialist Type: Progress Notes Filed: 10/06/2024 12:48 Note Text: ALIX- [facility] 10-06-2024 History of Present illness Narrative ALIX- documented in this encounter [facility] 09-16-2024 Telephone encounter Note Patient had to cancel her visit with the provider today as she got called into work. Could you please reach out and help the patient schedule an appointment sooner than her October visit. [facility] 09-16-2024 Miscellaneous Notes Patient had to cancel her visit with the provider today as she got called into work. Could you please reach out and help the patient schedule an appointment sooner than her October visit. Call placed to patient (x2) with message left with today's VV information for today. Hopefully patient signs on for visit. Marlena Olsen LPN documented in this encounter [facility] 09-16-2024 History of Present illness Narrative Patient sent a message on mychart sharing that she would not be able to make it to the appointment as she got called into work. Provider will work on getting patient rescheduled. documented in this encounter [facility] 09-16-2024 Note HNO ID: [id number] Author: SAMARIA HAJI APRN.CNP Service: ? Author Type: Nurse Practitioner Type: Progress Notes Filed: 09/16/2024 16:30 Note Text: Patient sent a message on mychart sharing that she would not be able to make it to the appointment as she got called into work. Provider will work on getting patient rescheduled. [facility] 09-16-2024 Telephone encounter Note Call placed to patient (x2) with message left with today's VV information for today. Hopefully patient signs on for visit. Marlena Olsen LPN [facility] 09-16-2024 Telephone encounter Note Scheduled for an appointment today to address this in detail. [facility] 09-16-2024 Miscellaneous Notes Scheduled for an appointment today to address this in detail. documented in this encounter [facility] 09-15-2024 Telephone encounter Note Noted. Thank you. [facility] 09-15-2024 Miscellaneous Notes Noted. Thank you. Call placed to patient, offering VV tomorrow 09/16/24 @ 4:30 pm to discuss medication side effects with Provider. Message left for patient to confirm visit via [facility] or by calling [phone]. Marlena Olsen LPN documented in this encounter [facility] 09-15-2024 Telephone encounter Note Call placed to patient, offering VV tomorrow 09/16/24 @ 4:30 pm to discuss medication side effects with Provider. Message left for patient to confirm visit via [facility] or by calling [phone]. Marlena Olsen LPN [facility] 09-04-2024 Note HNO ID: [id number] Author: MARLEE ALMANZA APRN.SEBASTIAN Service: ? Author Type: It Infrastructure Specialist Type: Progress Notes Filed: 09/10/2024 12:49 Note Text: Tennis Player offered: Patient declines. INITIAL OB ASSESSMENT HPI: Marzena is a 34 year old White Female here to establish Obstetrical Care. Patient's last menstrual period was 07/16/2024 (exact date). from OB Dating Form. was planned. Recent Influenza A but feeling better. Nausea and vomiting reduced. Depression and anxiety are ok at this time. Complaints: (!) Rash or viral illness; Abdominal pain; Severe nausea/vomiting OB History Gravida3 Para2 Term2 Preterm0 AB0 Living2 SAB0 IAB0 Ectopic0 Multiple0 Live Births2 Previous history: Prior : No History of 4th degree laceration: No History of shoulder dystocia: No History of Hypertensive disorders including pre-eclampsia or gestational hypertension: No History of gestational diabetes: No Patient's Risk Screening for delivery: Have you had a prior boykin between 20w and 36w6d? No How many pregnancies have you had before? 2 Did you have a previous baby with a GBS Infection? No Please select all that apply for any prior : N/A MEDICAL/PSYCHOSOCIAL HISTORY: History of hemorrhage or bleeding concerns: No Thyroid Disease: No History of chronic hypertension: No History of pre-existing diabetes: No ABO/RH(D) Date Value Ref Range Status 05/24/2021 O POSITIVE Final BMI 22.80 kg/(m2) Last Pap: 01/10/2023 History of abnormal pap: Yes Prior treatment for cervical dysplasia: none. Last HPV: 01/04/2023 History of STDs: None and HSV Partner History of STDs: None and HSV Did you have a partner with Herpes? Yes Tobacco use: No E-Cigarette/Vaping Use: No Caffeine use: Yes Drug use: No Alcohol use: No Multivitamin with Folic acid: Yes Would refuse blood transfusion if medically necessary: No Social Needs: How often does this describe you? I don't have enough money to pay my bills: Never Within the past 12 months, have you worried that your food would run out before you had money to buy more? Never In the past 12 months, has lack of reliable transportation kept you from going to medical appointments or work, or from getting things needed for daily living? Never In the past 12 months, have you had any concerns about having a place to live, or about the condition or quality of your housing? Never Would you like more information on any of the following (please check all that apply)? Not interested Social History: Do you have any history of depression, anxiety, PTSD, or other mood problems? Yes Do you have a history of abuse or trauma that may impact your experience? No Are you currently employed? Yes Depression/Anxiety Screening: denies, admits to symptoms of depression. OB Depression and Anxiety Screening- This Encounter (since 09/07/2024) None Genetic Screening: Partner present: No Patient verbalized knowledge of partner family health history: Yes Do you or your partner have any personal or family history of defects not previously discussed: No Do you have history of a complicated by anomaly, genetic condition, or demise: No Preeclampsia Risk Screening: Screening for prevention of preeclampsia: High risk factors: None Moderate risk ractors: None OB Risk Screening: Completed, positive findings include: Patient answered 'Yes' to Partner with Herpes Marital Status:Co-habitating Partner: Name: Norberto Age: 37 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 Gender: Male PAST MEDICAL HISTORY Diagnosis Date Anxiety anxiety/depression ASCUS of cervix with negative high risk HPV Fatigue Herpes simplex virus (HSV) infection has tested positive for antibodies but never had an outbreak History of depression Maternal iron deficiency anemia affecting in third trimester, antepartum 09/15/2021 Metrorrhagia PAST SURGICAL HISTORY Procedure Laterality Date PAST SURGICAL HISTORY OF wisdom teeth Current Outpatient Medications Medication Sig Dispense Refill ondansetron orally disintegrating (ZOFRAN ODT) 4 mg disintegrating tablet Take 1 tablet by mouth every 8 hours as needed for nausea/vomiting. 60 tablet 1 vit no.124/iron/folic ( VITAMIN ORAL) Take by mouth. sertraline (ZOLOFT) 100 mg tablet Take 1 and 1/2 tablets by mouth once daily. 135 tablet 0 No current facility-administered medications for this visit. Allergies As of Date: 09/08/2024 Allergen Noted Reaction TREE NUTS 05/19/2020 Hives Fully Assessed 09/08/2024 Does patient have penicillin allergy: No REVIEW OF SYSTEMS: GENERAL: Negative for: Fever or Chills HEENT: Negative for: Headache, Impaired Vision, Ringing in Ears, Nosebleeds NECK: Negative for: Swelling, Pain, Stiffness RESPIRATORY: Negative for: Cough, Shortness of breath, (more content not included)... [facility] 09-04-2024 History of Present illness Narrative Tennis Player offered: Patient declines. INITIAL OB ASSESSMENT HPI: Marzena is a 34 year old White Female here to establish Obstetrical Care. Patient's last menstrual period was 07/16/2024 (exact date). from OB Dating Form. was planned. Recent Influenza A but feeling better. Nausea and vomiting reduced. Depression and anxiety are ok at this time. Complaints: (!) Rash or viral illness; Abdominal pain; Severe nausea/vomiting OB History Gravida3 Para2 Term2 Preterm0 AB0 Living2 SAB0 IAB0 Ectopic0 Multiple0 Live Births2 Previous history: Prior : No History of 4th degree laceration: No History of shoulder dystocia: No History of Hypertensive disorders including pre-eclampsia or gestational hypertension: No History of gestational diabetes: No Patient's Risk Screening for delivery: Have you had a prior boykin between 20w and 36w6d? No How many pregnancies have you had before? 2 Did you have a previous baby with a GBS Infection? No Please select all that apply for any prior : N/A MEDICAL/PSYCHOSOCIAL HISTORY: History of hemorrhage or bleeding concerns: No Thyroid Disease: No History of chronic hypertension: No History of pre-existing diabetes: No ABO/RH(D) Date Value Ref Range Status 05/24/2021 O POSITIVE Final BMI 22.80 kg/(m^2) Last Pap: 01/10/2023 History of abnormal pap: Yes Prior treatment for cervical dysplasia: none. Last HPV: 01/04/2023 History of STDs: None and HSV Partner History of STDs: None and HSV Did you have a partner with Herpes? Yes Tobacco use: No E-Cigarette/Vaping Use: No Caffeine use: Yes Drug use: No Alcohol use: No Multivitamin with Folic acid: Yes Would refuse blood transfusion if medically necessary: No Social Needs: How often does this describe you? I don't have enough money to pay my bills: Never Within the past 12 months, have you worried that your food would run out before you had money to buy more? Never In the past 12 months, has lack of reliable transportation kept you from going to medical appointments or work, or from getting things needed for daily living? Never In the past 12 months, have you had any concerns about having a place to live, or about the condition or quality of your housing? Never Would you like more information on any of the following (please check all that apply)? Not interested Social History: Do you have any history of depression, anxiety, PTSD, or other mood problems? Yes Do you have a history of abuse or trauma that may impact your experience? No Are you currently employed? Yes Depression/Anxiety Screening: denies, admits to symptoms of depression. OB Depression and Anxiety Screening- This Encounter (since 09/07/2024) None Genetic Screening: Partner present: No Patient verbalized knowledge of partner family health history: Yes Do you or your partner have any personal or family history of defects not previously discussed: No Do you have history of a complicated by anomaly, genetic condition, or demise: No Preeclampsia Risk Screening: Screening for prevention of preeclampsia: High risk factors: None Moderate risk ractors: None OB Risk Screening: Completed, positive findings include: Patient answered 'Yes' to Partner with Herpes Marital Status:Co-habitating Partner: Name: Norberto Age: 37 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 Gender: Male PAST MEDICAL HISTORY Diagnosis Date Anxiety anxiety/depression ASCUS of cervix with negative high risk HPV Fatigue Herpes simplex virus (HSV) infection has tested positive for antibodies but never had an outbreak History of depression Maternal iron deficiency anemia affecting in third trimester, antepartum 09/15/2021 Metrorrhagia PAST SURGICAL HISTORY Procedure Laterality Date PAST SURGICAL HISTORY OF wisdom teeth Current Outpatient Medications Medication Sig Dispense Refill ondansetron orally disintegrating (ZOFRAN ODT) 4 mg disintegrating tablet Take 1 tablet by mouth every 8 hours as needed for nausea/vomiting. 60 tablet 1 vit no.124/iron/folic ( VITAMIN ORAL) Take by mouth. sertraline (ZOLOFT) 100 mg tablet Take 1 and 1/2 tablets by mouth once daily. 135 tablet 0 No current facility-administered medications for this visit. Allergies As of Date: 09/08/2024 Allergen Noted Reaction TREE NUTS 05/19/2020 Hives Fully Assessed 09/08/2024 Does patient have penicillin allergy: No REVIEW OF SYSTEMS: GENERAL: Negative for: Fever or Chills HEENT: Negative for: Headache, Impaired Vision, Ringing in Ears, Nosebleeds NECK: Negative for: Swelling, Pain, Stiffness RESPIRATORY: Negative for: Cough, Shortness of breath, Wheezing GASTROINTESTINAL: Negative for: Heartburn, Constipation, Diarrhea, Blood in stool, Vomiting MUSCULOSKELETAL: Negative for: Muscle or joint pain, stiffness, Joint swelling NEUROLOGIC/PSYCHIATRIC: Negative for: Weakness, Paralysis, Numbness, Tingling, Tremor, Anxiety, Depression, Memory loss SKIN: Negative for: Rash, Itching GENITOURINARY: Negative for: vaginal itching, vaginal discharge, hematuria or dysuria SENSITIVE EXAM: The sensitive examination was discussed with the Patient or Patient's Authorized Documentation Consultant. As applicable, any other physician, advance practice provider, medical student, or other health professional student that will be observing or involved in the sensitive examination for educational or training purposes was discussed with the Patient or Authorized Documentation Consultant. The Patient or Authorized Documentation Consultant has agreed to proceed with the sensitive examination. (Sensitive examination includes inspection and/or palpation of the breasts, pelvis, prostate and anorectal regions). PHYSICAL EXAM: BP 118/60 Ht 5' 5 (1.65m) Wt 137 lb (62.1kg) LMP 07/16/2024 BMI 22.80 kg/(m^2). GENERAL: pleasant in no apparent distress DERMATOLOGY: Normal, without lesions, non-icteric, and non-hirsute NECK: Supple, full range of motion, no adenopathy, and thyroid normal CHEST: Normal inspiratory effort BREAST: soft, non-tender, symmetric, no dominant mass, normal nipple-areolar complex, no lymphadenopathy, and no nipple discharge ABDOMEN: soft, non-tender, and no masses NEURO: alert and oriented x3,exam grossly non-focal PELVIS: External genitalia normal without lesions. Perineal body intact. No vaginal or cervical lesions. Cervix closed. Uterus 8 week size. No adnexal masses or tenderness. Clinical Pelvimetry: Pelvimetry clinically assessed as adequate Limited OB ultrasound exam: single intrauterine , positive cardiac activity, crown-rump length 7w1d, and normal bilateral adnexa ASSESSMENT: 34 year old at 7w5d wks gestational age PLAN: 1) Patient oriented to practice. Patient given new OB orientation folder. Discussed nutrition, folic acid supplementation, dietary guidelines, exercise, smoking, alcohol, caffeine, and drug use. Discussed gestational weight gain guidelines. Discussed routine OB labs including STD/HIV. Reviewed midwifery and news content specialist services that are available. 2) Screening: Hemoglobin A1C: ordered Baby Aspirin: The patient has been counseled about the potential benefits of low dose aspirin in and our recommendation that this be offered to all patients, regardless of whether they meet the high risk criteria specified above. She Accepts Aneuploidy Screening: Discussed aneuploidy screening, nuchal translucency/first trimester early anatomy ultrasound and NIPT. The risks/benefits and limitations of NIPT/aneuploidy screening were reviewed including the potential for false negative and false positive results. The availability of genetic counseling was reviewed. Information on aneuploidy screening was provided. The patient chooses to proceed with First trimester early anatomy ultrasound (12-13w6d) and NIPT (10 weeks) Myriad Carrier Screening: Discussed myriad carrier screening. We discussed the availability of professional-society guided carrier screening and reviewed the conditions screened and limitations of screening. The availability of genetic counseling was reviewed. Information on carrier screening was provided. The patient Previously ordered 09/2020 negative 3) Patient offered option of Virtual Visits. Patient prefers in person visits. 4) History of labor with both pregnancies, carried to term. Will consult MFM if CL or consult recommended. Follow up in 4 weeks or sooner prrafaela. Marlee Almanza APRN.CNM documented in this encounter [facility] 09-04-2024 Instructions Qian Nichols MA - 09/04/2024 3:10 PM EST Please select the following link to access the [facility] Your Guide to a Healthy . [email or web address] Please select the following link to access the [facility] Your Guide to a Healthy . [email or web address] documented in this encounter [facility] 09-01-2024 Note HNO ID: [id number] Author: AMAYA DEAL RT(R) Service: ? Author Type: Technologist Type: Progress Notes Filed: 09/01/2024 22:03 Note Text: Radiology Service Progress Note PATIENT NAME: Marzena Pickering DATE OF SERVICE: September 01, 2024 TIME: 10:03 PM PATIENT IDENTITY VERIFICATION COMPLETED USING TWO (2) IDENTIFIERS: Name and Date of confirmed by patient verbally and Name and Date of confirmed by identification band. FALL SCREENING: Has the patient had 2 falls in the last year or 1 fall with injury or currently using an Ambulatory Assistive Device (Walker, Cane, Wheelchair, Crutches, etc.)? Emergency Room Patient: Screened in ED PATIENT GENDER DATA: Assigned female at . status: : Yes. Internal Quality Check OK. status: NO. PATIENT RELEVANT IMPLANT DATA REVIEWED: Not Applicable PATIENT PRESENTS WITH AN IMPLANTABLE OR ATTACHED FELLED SEAM OPERATOR CHAINSTITCH: N/A RADIOLOGY DEPARTMENT: Ultrasound PERIPHERAL IV DATA: Not applicable SIGNED BY: RT Fred(R) September 01, 2024 10:03 PM [facility] 09-01-2024 Note SARS-COV-2 (AGENT OF COVID-19) RNA: Not detected INFLUENZA A RNA: Detected INFLUENZA B RNA: Not detected RESPIRATORY SYNCYTIAL VIRUS (RSV) RNA: Not detected [facility] Comment on above: Performed By: #### [id number] ####[facility] LABCLIA [id number] [place] [id number] [place] 09-01-2024 Note HNO ID: [id number] Author: ARIANNA BYNUM APRN.MOLD CARRIER Service: ? Author Type: Nurse Practitioner Type: Progress Notes Filed: 09/01/2024 18:23 Note Text: September 01, 2024 Subjective Chief Complaint: Vomiting (Sx started x 2 weeks with vomiting, diarrhea,cough, chest tightness. Pt is 7 weeks . Tylenol last dose 1400 tody) HPI: Marzena Pickering is a 34 year old female who presents today for a 2-week history of cough, sinus congestion with drainage, nausea with vomiting and diarrhea. Reports has had x 6 emesis yesterday. Reports feels dizzy and feels like she is going to pass out at times. Patient is 7 weeks and also reports having some abdominal pain and chest discomfort. Reports both of her children had influenza. Has called her block piler in [place] on 08/22 and had no vomiting then. Aware of limitations here at urgent care and I recommend to go to ED for fluids and further evaluation. Pt. Agrees. PAST MEDICAL HISTORY Diagnosis Date Anxiety anxiety/depression ASCUS of cervix with negative high risk HPV Fatigue Herpes simplex virus (HSV) infection has tested positive for antibodies but never had an outbreak Maternal iron deficiency anemia affecting in third trimester, antepartum 09/15/2021 Metrorrhagia PAST SURGICAL HISTORY Procedure Laterality Date PAST SURGICAL HISTORY OF wisdom teeth FAMILY HISTORY Problem Relation Age of Onset No Known Problems Mother No Known Problems Father No Known Problems Sister Blood Clots Maternal Grandfather Cancer Paternal Grandmother ovarian cancer No Known Problems Paternal Grandfather other (dairy allergy) Daughter Social History Tobacco Use Smoking status: Never Smokeless tobacco: Never Vaping Use Vaping status: Never Used Substance Use Topics Alcohol use: Not Currently Comment: Occasional Drug use: No ALLERGIES Allergen Reactions Tree Nuts Hives Occasionally gets hives when she eats cashews and almonds Immunization History Administered Date(s) Administered Haemophilus influenzae b (Hib) vaccine, unspecified formulation 1992 1992 04/20/1993 02/27/1995 diphtheria tetanus pertussis (DTP) vaccine 1992 1992 04/20/1993 02/27/1995 10/08/1997 02/15/2005 hepatitis A-hepatitis B (HepA-HepB) vaccine (TWINRIX) 10/22/2017 12/19/2017 hepatitis B (HepB) vaccine, 3-dose series, age 0 yr - 19 yr (ENGERIX B-PEDS, RECOMBIVAX HB-PEDS) 02/27/2011 human papillomavirus (HPV4) vaccine, quadrivalent (GARDASIL) 02/27/2011 influenza (HD-IIV3) vaccine, age 65+ yr, high dose, trivalent, PF (FLUZONE HIGH-DOSE) 05/13/2014 influenza (IIV4) vaccine, age 6 mo - 64 yr, quadrivalent, PF (AFLURIA, FLUARIX, FLULAVAL, FLUZONE) 08/01/2017 03/31/2018 04/03/2019 influenza vaccine, unspecified formulation 05/02/2023 measles mumps rubella (MMR) vaccine (M-M-R II, PRIORIX) 02/27/1995 04/03/2005 poliovirus vaccine, unspecified formulation 1992 1992 02/27/1995 10/08/1997 tetanus diphtheria pertussis (Tdap) vaccine, age 7+ yr (ADACEL, BOOSTRIX) 12/19/2017 10/25/2020 09/15/2021 Current Medications: vit no.124/iron/folic ( VITAMIN ORAL) Take by mouth. sertraline (ZOLOFT) 100 mg tablet Take 1 and 1/2 tablets by mouth once daily. [DISCONTINUED] multivit no.38-folate 6-patito (PRENATE AM) 1-500 mg tab Take 1 tablet by mouth once daily. Review of Systems HENT: Positive for congestion (sinus drainage), ear pain and sore throat. Respiratory: Positive for cough. Cardiovascular: Positive for chest pain. Gastrointestinal: Positive for abdominal pain, diarrhea, nausea and vomiting. Genitourinary: Negative. Musculoskeletal: Negative. Skin: Negative. Neurological: Negative. Objective BP 109/71 Pulse 74 Temp (Src) 99.1 (Oral) Resp 16 Wt 134 lb 7.7 oz (61.0kg) SpO2 99% LMP 07/16/2024 Physical Exam Vitals and nursing note reviewed. Constitutional: Appearance: Normal appearance. HENT: Head: Normocephalic and atraumatic. Right Ear: Ear canal and external ear normal. Tenderness present. A middle ear effusion is present. There is no impacted cerumen. Tympanic membrane is not perforated or erythematous. Left Ear: Ear canal and external ear normal. Tenderness present. A middle ear effusion is present. There is no impacted cerumen. Tympanic membrane is not perforated or erythematous. Nose: Nose normal. Mouth/Throat: Lips: Freeman. No lesions. Mouth: Mucous membranes are moist. Pharynx: Oropharynx is clear. Uvula midline. Posterior oropharyngeal erythema present. Eyes: Extraocular Movements: Extraocular movements intact. Conjunctiva/sclera: Conjunctivae normal. Pupils: Pupils are equal, round, and reactive to light. Cardiovascular: Rate and Rhythm: Normal rate and regular rhythm. Pulses: Normal pulses. Heart sounds: Normal heart sounds. Pulmonary: Effort: Pulmonary effort is normal. Breath sounds: Normal b (more content not included)... [facility] 09-01-2024 History of Present illness Narrative September 01, 2024 Subjective Chief Complaint: Vomiting (Sx started x 2 weeks with vomiting, diarrhea,cough, chest tightness. Pt is 7 weeks . Tylenol last dose 1400 tody) HPI: Marzena Pickering is a 34 year old female who presents today for a 2-week history of cough, sinus congestion with drainage, nausea with vomiting and diarrhea. Reports has had x 6 emesis yesterday. Reports feels dizzy and feels like she is going to pass out at times. Patient is 7 weeks and also reports having some abdominal pain and chest discomfort. Reports both of her children had influenza. Has called her block piler in [place] on 08/22 and had no vomiting then. Aware of limitations here at urgent care and I recommend to go to ED for fluids and further evaluation. Pt. Agrees. PAST MEDICAL HISTORY Diagnosis Date Anxiety anxiety/depression ASCUS of cervix with negative high risk HPV Fatigue Herpes simplex virus (HSV) infection has tested positive for antibodies but never had an outbreak Maternal iron deficiency anemia affecting in third trimester, antepartum 09/15/2021 Metrorrhagia PAST SURGICAL HISTORY Procedure Laterality Date PAST SURGICAL HISTORY OF wisdom teeth FAMILY HISTORY Problem Relation Age of Onset No Known Problems Mother No Known Problems Father No Known Problems Sister Blood Clots Maternal Grandfather Cancer Paternal Grandmother ovarian cancer No Known Problems Paternal Grandfather other (dairy allergy) Daughter Social History Tobacco Use Smoking status: Never Smokeless tobacco: Never Vaping Use Vaping status: Never Used Substance Use Topics Alcohol use: Not Currently Comment: Occasional Drug use: No ALLERGIES Allergen Reactions Tree Nuts Hives Occasionally gets hives when she eats cashews and almonds Immunization History Administered Date(s) Administered Haemophilus influenzae b (Hib) vaccine, unspecified formulation 1992 1992 04/20/1993 02/27/1995 diphtheria tetanus pertussis (DTP) vaccine 1992 1992 04/20/1993 02/27/1995 10/08/1997 02/15/2005 hepatitis A-hepatitis B (HepA-HepB) vaccine (TWINRIX) 10/22/2017 12/19/2017 hepatitis B (HepB) vaccine, 3-dose series, age 0 yr - 19 yr (ENGERIX B-PEDS, RECOMBIVAX HB-PEDS) 02/27/2011 human papillomavirus (HPV4) vaccine, quadrivalent (GARDASIL) 02/27/2011 influenza (HD-IIV3) vaccine, age 65+ yr, high dose, trivalent, PF (FLUZONE HIGH-DOSE) 05/13/2014 influenza (IIV4) vaccine, age 6 mo - 64 yr, quadrivalent, PF (AFLURIA, FLUARIX, FLULAVAL, FLUZONE) 08/01/2017 03/31/2018 04/03/2019 influenza vaccine, unspecified formulation 05/02/2023 measles mumps rubella (MMR) vaccine (M-M-R II, PRIORIX) 02/27/1995 04/03/2005 poliovirus vaccine, unspecified formulation 1992 1992 02/27/1995 10/08/1997 tetanus diphtheria pertussis (Tdap) vaccine, age 7+ yr (ADACEL, BOOSTRIX) 12/19/2017 10/25/2020 09/15/2021 Current Medications: vit no.124/iron/folic ( VITAMIN ORAL) Take by mouth. sertraline (ZOLOFT) 100 mg tablet Take 1 and 1/2 tablets by mouth once daily. [DISCONTINUED] multivit no.38-folate 6-patito (PRENATE AM) 1-500 mg tab Take 1 tablet by mouth once daily. Review of Systems HENT: Positive for congestion (sinus drainage), ear pain and sore throat. Respiratory: Positive for cough. Cardiovascular: Positive for chest pain. Gastrointestinal: Positive for abdominal pain, diarrhea, nausea and vomiting. Genitourinary: Negative. Musculoskeletal: Negative. Skin: Negative. Neurological: Negative. Objective BP 109/71 Pulse 74 Temp (Src) 99.1 (Oral) Resp 16 Wt 134 lb 7.7 oz (61.0kg) SpO2 99% LMP 07/16/2024 Physical Exam Vitals and nursing note reviewed. Constitutional: Appearance: Normal appearance. HENT: Head: Normocephalic and atraumatic. Right Ear: Ear canal and external ear normal. Tenderness present. A middle ear effusion is present. There is no impacted cerumen. Tympanic membrane is not perforated or erythematous. Left Ear: Ear canal and external ear normal. Tenderness present. A middle ear effusion is present. There is no impacted cerumen. Tympanic membrane is not perforated or erythematous. Nose: Nose normal. Mouth/Throat: Lips: Freeman. No lesions. Mouth: Mucous membranes are moist. Pharynx: Oropharynx is clear. Uvula midline. Posterior oropharyngeal erythema present. Eyes: Extraocular Movements: Extraocular movements intact. Conjunctiva/sclera: Conjunctivae normal. Pupils: Pupils are equal, round, and reactive to light. Cardiovascular: Rate and Rhythm: Normal rate and regular rhythm. Pulses: Normal pulses. Heart sounds: Normal heart sounds. Pulmonary: Effort: Pulmonary effort is normal. Breath sounds: Normal breath sounds and air entry. Abdominal: General: Bowel sounds are normal. Palpations: Abdomen is soft. Musculoskeletal: General: Normal range of motion. Cervical back: Normal range of motion and neck supple. Skin: General: Skin is warm and dry. Neurological: General: No focal deficit present. Mental Status: She is alert and oriented to person, place, and time. Psychiatric: Mood and Affect: Mood normal. Medical Decision Making: Problems: Low: Acute, uncomplicated illness or injury Data: Unique source(s) for external note(s) reviewed: 1 Risk: Moderate: Moderate risk from testing/treatment Medical Decision Making Level: 3 - Low ASSESSMENT/PLAN: 1. Nausea and vomiting, unspecified vomiting type - ICD9: 787.01, ICD10: R11.2 (primary diagnosis) 2. Dizzy - ICD9: 780.4, ICD10: R42 3. Viral illness - ICD9: 079.99, ICD10: B34.9 - Discussed viral etiology and rationale for treatment. - Symptomatic treatment with prn analgesia - Supportive care with fluids and rest - -sent to ED for further evaluation. Arianna Bynum APRN.CNP This note was partially generated using [employer] voice recognition system and there may be some incorrect words, spelling's, and punctuation that were not noted in checking the note before saving. The above reflects my independent exam and review of the patient's medical record. I saw and examined the patient myself personally. Parts of the HPI, ROS, exam, impression/plan, and testing results may have been copied from the current or previous clinical notes and remain pertinent to today's visit. Current changes have been made and documented today. Other parts or data may have been deleted if not relevant for today. Plan as outlined above. documented in this encounter [facility] 09-01-2024 Instructions Arianna Bynum APRN.CNP - 09/01/2024 6:18 PM EST Recommend ER for further evaluation documented in this encounter [facility] 08-28-2024 Instructions Samaria Haji APRN.CNP - 08/28/2024 3:06 PM EST TREATMENT PLAN: Discontinue Wellbutrin as patient would like to try discontinuing it now to observe any change in her mood. Continue Zoloft at the same dose of 150 mg to address anxiety and mood symptoms. May need to increase the dose if there are noticeable changes in mood or anxiety symptoms with the discontinuation of Wellbutrin. Continue individual psychotherapy twice a month and notify therapist of Wellbutrin discontinuation. Follow up in 2 months or sooner if needed. For those experiencing a suicidal crisis: --call the National Suicide Prevention Lifeline at 988 (286.275.2681) --text the Crisis Text Line (text HOME to 526968) --call 911 and let them know you are having a mental health crisis or go to your nearest Emergency Room for stabilization. --You can also call Mobile Crisis at [phone]. -- You may call the department appointment line at [phone] to schedule your appointment. -- Please call my nurse at [phone] or send me a message in [facility] [employer] with any questions or concerns between appointments. documented in this encounter [facility] 08-28-2024 History of Present illness Narrative Images from the original note were not included. FOLLOW UP - PSYCHIATRIC PROGRESS NOTE PATIENT: Marzena Pickering DATE: August 28, 2024 Visit Type: Virtual Visit utilizing two-way audio and video for at least a portion of the visit. Consent for virtual visit obtained verbally. Confidentiality limitations with virtual visits reviewed with the patient and guardian, if present, who have accepted the risk verbally prior to proceeding with encounter. I have communicated my name and active licensure. The patient's identity and physical location were verified at the time of this visit. 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 All information is from Patient report except when noted. This evaluation is NOT intended for forensic, disability or child custody purposes. CC: Presenting today for follow up regarding psychiatric medication management. HPI: Treatment Plan from Last Visit on 05/04/2024: TREATMENT PLAN: Change Wellbutrin to 200 mg SR dose for the patient to take every morning to address depressive symptoms. Has found it challenging to take the Wellbutrin IR dose twice daily due to her changing schedule. Discussed taking with food if needed to manage any GI side effects. Continue Zoloft at the 150 mg dose. If the apathy related symptoms do not improve once depression is better addressed with Wellbutrin consider reducing the Zoloft dose. Patient to contact her therapist and schedule an appointment to continue psychotherapy as she does report benefit from it. Will send an update via [facility] if she continues to notice apathy. It is important to note that patient reached out on 08/14 to share that she had found out that she was . She does plan to breastfeed. Reported tremors at the higher dose of Wellbutrin 200 mg. Was in agreement to try the lower dose of 100 mg till her appointment with the provider. Today Marzena shares that I am feeling better. She is not noticing side effects on the Wellbutrin 100 mg. Feels tired but attributes that to her of 8 weeks. Her mood has been managed well even with the lower dose of Wellbutrin. Her mother's one year anniversary just passed and she coped with it okay. She is planning on and we discussed risks vs benefit related to both the medications. Patient would like to try discontinuing the Wellbutrin at this time. Her boyfriend is around more and she is spending time with him hiking and engaging in other activities. Feels that this has helped her mood as she is not feeling lonely like she did before. Continues to engage in psychotherapy two times a month. Discussed making therapist aware of Wellbutrin discontinuation so that he can observe any changes or concerns. Patient and family have been battling the flu for the last 2 weeks. Her appetite has improved in the last 3 days. Shares that she is sleeping a lot during the day but is up at night. Attributes this to her work schedule. States sleep is better now, used to experience some nightmares at the beginning of the . Interval Progress: Slightly improved PATIENT DATA: Generalized Anxiety Disorder Scale (GUIDO-7) 08/02/2023 11/01/2023 08/28/2024 GUIDO - 7 SCORES Score 1 2 0 (0-4) minimal anxiety, (5-9) mild anxiety, (10-14) moderate anxiety, (15-21) severe anxiety Patient Health Questionnaire (PHQ-9) 01/31/2024 05/04/2024 08/28/2024 PHQ-9 Score 4 5 2 (0-4) minimal depression, (5-9) mild depression, (10-14) moderate depression, (15-19) moderately severe depression, (20-27) severe depression PAST MEDICAL HISTORY Diagnosis Date Anxiety anxiety/depression ASCUS of cervix with negative high risk HPV Fatigue Herpes simplex virus (HSV) infection has tested positive for antibodies but never had an outbreak Maternal iron deficiency anemia affecting in third trimester, antepartum 09/15/2021 Metrorrhagia PAST SURGICAL HISTORY Procedure Laterality Date PAST SURGICAL HISTORY OF wisdom teeth ALLERGIES Allergen Reactions Tree Nuts Hives Occasionally gets hives when she eats cashews and almonds Current Outpatient Medications on File Prior to Visit Medication Sig buPROPion SR (WELLBUTRIN SR) 100 mg 12 hr tablet Take 1 tablet by mouth daily with breakfast. sertraline (ZOLOFT) 100 mg tablet Take 1 and 1/2 tablets by mouth once daily. [DISCONTINUED] multivit no.38-folate 6-patito (PRENATE AM) 1-500 mg tab Take 1 tablet by mouth once daily. No current facility-administered medications on file prior to visit. ROS: See HPI PFSH: See HPI VITAL SIGNS: There were no vitals filed for this visit. Last 3 Encounter BP Readings: Date: BP: 01/02/2023 98/60 12/17/2022 114/75 10/04/2022 111/71 MENTAL STATUS EXAMINATION: Appearance: Casually dressed and groomed Behavior: Behaves appropriately during the encounter Social relatedness: Euthymic Speech/Language: The patient demonstrates appropriate tone, prosody, elyssa, phonetics, and syntax Mood: euthymic Affect: Full and appropriate to topic Orientation: Person, Place, Time and Situation Associations: Intact and linear Hallucinations: None Delusions: None Suicidal Ideation: No suicidal ideation, intent or plan. Homicidal Ideation: No homicidal ideation, intent or plan. Insight: Appropriate Judgment: Appropriate DATA REVIEWED: Psychiatric scales, Electronic medical record, Labs DIAGNOSIS: Guido (generalized anxiety disorder) (primary encounter diagnosis) Recurrent major depressive disorder, in partial remission ([facility]) Encounter for long-term (current) use of medications with 8 completed weeks gestation GAF: -80-71 If symptoms are present, they are transient and expectable reactions to psychosocial stressors TREATMENT PLAN: Discontinue Wellbutrin as patient would like to try discontinuing it now to observe any change in her mood. Continue Zoloft at the same dose of 150 mg to address anxiety and mood symptoms. May need to increase the dose if there are noticeable changes in mood or anxiety symptoms with the discontinuation of Wellbutrin. Continue individual psychotherapy twice a month and notify therapist of Wellbutrin discontinuation. Follow up in 2 months or sooner if needed. MEDICATION CHANGES: Prescriptions given See above. Risks and benefits of the medication, including any black box warnings, were discussed with the patient. Patient is aware to reach out with any questions, concerns, or worsening of symptoms prior to the next appointment. Patient educated on risks of substance use in combination with medications and advised that any substance use along with medications may alter their effectiveness. Follow Up: See Treatment Plan Medical Decision Making: Problems: Moderate: 2+ stable chronic illnesses and 1+ chronic illnesses with change Data: Unique source(s) for external note(s) reviewed: 3+ Unique test result(s) reviewed: 3+ Independent interpretation of test from other physician/QHCP Risk: Moderate: Moderate risk from testing/treatment and Drug management Medical Decision Making Level: 4 - Moderate ADD ON PSYCHOTHERAPY CODE : No SIGNATURE: Samaria Haji APRN.CNP PATIENT NAME: Marzena Pickering DATE: August 28, 2024 TIME: 2:33 PM documented in this encounter [facility] 08-28-2024 Note HNO ID: [id number] Author: SAMARIA HAJI APRN.CNP Service: ? Author Type: Nurse Practitioner Type: Progress Notes Filed: 08/28/2024 15:06 Note Text: FOLLOW UP - PSYCHIATRIC PROGRESS NOTE PATIENT: Marzena Pickering DATE: August 28, 2024 Visit Type: Virtual Visit utilizing two-way audio and video for at least a portion of the visit. Consent for virtual visit obtained verbally. Confidentiality limitations with virtual visits reviewed with the patient and guardian, if present, who have accepted the risk verbally prior to proceeding with encounter. I have communicated my name and active licensure. The patient's identity and physical location were verified at the time of this visit. 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 All information is from Patient report except when noted. This evaluation is NOT intended for forensic, disability or child custody purposes. CC: Presenting today for follow up regarding psychiatric medication management. HPI: Treatment Plan from Last Visit on 05/04/2024: TREATMENT PLAN: Change Wellbutrin to 200 mg SR dose for the patient to take every morning to address depressive symptoms. Has found it challenging to take the Wellbutrin IR dose twice daily due to her changing schedule. Discussed taking with food if needed to manage any GI side effects. Continue Zoloft at the 150 mg dose. If the apathy related symptoms do not improve once depression is better addressed with Wellbutrin consider reducing the Zoloft dose. Patient to contact her therapist and schedule an appointment to continue psychotherapy as she does report benefit from it. Will send an update via [facility] if she continues to notice apathy. It is important to note that patient reached out on 08/14 to share that she had found out that she was . She does plan to breastfeed. Reported tremors at the higher dose of Wellbutrin 200 mg. Was in agreement to try the lower dose of 100 mg till her appointment with the provider. Today Marzena shares that I am feeling better. She is not noticing side effects on the Wellbutrin 100 mg. Feels tired but attributes that to her of 8 weeks. Her mood has been managed well even with the lower dose of Wellbutrin. Her mother's one year anniversary just passed and she coped with it okay. She is planning on and we discussed risks vs benefit related to both the medications. Patient would like to try discontinuing the Wellbutrin at this time. Her boyfriend is around more and she is spending time with him hiking and engaging in other activities. Feels that this has helped her mood as she is not feeling lonely like she did before. Continues to engage in psychotherapy two times a month. Discussed making therapist aware of Wellbutrin discontinuation so that he can observe any changes or concerns. Patient and family have been battling the flu for the last 2 weeks. Her appetite has improved in the last 3 days. Shares that she is sleeping a lot during the day but is up at night. Attributes this to her work schedule. States sleep is better now, used to experience some nightmares at the beginning of the . Interval Progress: Slightly improved PATIENT DATA: Generalized Anxiety Disorder Scale (GUIDO-7) 08/02/2023 11/01/2023 08/28/2024 GUIDO - 7 SCORES Score 1 2 0 (0-4) minimal anxiety, (5-9) mild anxiety, (10-14) moderate anxiety, (15-21) severe anxiety Patient Health Questionnaire (PHQ-9) 01/31/2024 05/04/2024 08/28/2024 PHQ-9 Score 4 5 2 (0-4) minimal depression, (5-9) mild depression, (10-14) moderate depression, (15-19) moderately severe depression, (20-27) severe depression PAST MEDICAL HISTORY Diagnosis Date Anxiety anxiety/depression ASCUS of cervix with negative high risk HPV Fatigue Herpes simplex virus (HSV) infection has tested positive for antibodies but never had an outbreak Maternal iron deficiency anemia affecting in third trimester, antepartum 09/15/2021 Metrorrhagia PAST SURGICAL HISTORY Procedure Laterality Date PAST SURGICAL HISTORY OF wisdom teeth ALLERGIES Allergen Reactions Tree Nuts Hives Occasionally gets hives when she eats cashews and almonds Current Outpatient Medications on File Prior to Visit Medication Sig buPROPion SR (WELLBUTRIN SR) 100 mg 12 hr tablet Take 1 tablet by mouth daily with breakfast. sertraline (ZOLOFT) 100 mg tablet Take 1 and 1/2 tablets by mouth once daily. [DISCONTINUED] multivit no.38-folate 6-patito (PRENATE AM) 1-500 mg tab Take 1 tablet by mouth once daily. No current facility-administered medications on file prior to visit. ROS: See HPI PFSH: See HPI VITAL SIGNS: There were no vitals filed for this visit. Last 3 (more content not included)... [facility] 08-25-2024 Telephone encounter Note Patient notified. She declined Zofran for now, but will contact office if symptoms persist and she changes her mind. Yeni Craig RN [facility] 08-25-2024 Miscellaneous Notes Patient notified. She declined Zofran for now, but will contact office if symptoms persist and she changes her mind. Yeni Craig RN That is fine, can send zofran prescription if desires. Marlee Almanza APRN.CNM LMP 07/16/24 approximately 5w4d Patient called with c/o nausea. No vomiting. Asking for a prescription for Zofran. Discussed Vitamin B6 and Unisom as the first line choice. 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 Patient agreeable to trying the Vitamin B6. States she felt like she was going to pass out at work. Not eating very much with the nausea. Had some diarrhea recently, but not any longer. Scheduled patient for her NOB with [facility]. No need to call patient back unless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 losing control Not at All 11. Fears of cracking up or going crazy Not at All 12. Fears of fainting or passing out Not at All 13. Fears of physical illnesses or heart attacks or dying Moderate 14. Concerns about looking foolish or inadequate in front of others Not at All 15. Fears of being alone, isolated or abandoned Not at All 16. Fears of criticism or disapproval Not at All 17. Fears that something terrible is about to happen Moderate CATEGORY III: PHYSICAL SYMPTOMS 18. Skipping, racing or pounding of the heart (sometimes called palpitations) Not at All 19. Pain, pressure or tightness in the chest Not at All 20. Tingling or numbness in the toes or fingers Not at All 21. Butterflies or discomfort in the stomach Not at All 22. Constipation or diarrhea Not at All 23. Restlessness or jumpiness Moderate 24. Tight, tense muscles Moderate 25. Sweating not brought on by heat Not at All 26. A lump in the throat Not at All 27. Trembling or shaking Not at All 28. Rubbery or jelly legs Not at All 29. Feeling dizzy, lightheaded or off balance Not at All 30. Choking or smothering sensations or difficulty breathing Not at All 31. Headaches or pains in the neck or back Not at All 32. Hot flashes or cold chills Not at All 33. Feeling tired, weak or easily exhausted Moderate Total score: (range: 0 - 99) 16 (Mild anxiety) [facility] Provider Understanding Current Health Wellness Question 08/26/2023 12:54 PM EST - Filed by Patient These questions will help my provider understand my health Agree Myc Document/Image Upload Question 08/26/2023 12:54 PM EST - Filed by Patient Photo ID If there are images or documents you'd like to share with your provider during your visit, you may upload up to a total of five files. For body images use the pencil icon to label your image. When labeling the image, please use the following format: The name of the body part followed by the side. For example, Back of Right Forearm or Lower Left Leg. DIAGNOSIS: Other Conditions That May Be a Focus of Clinical Attention (V codes and Z codes): none Mental/Emotional Goals: Decrease symtoms of Anxiety Decrease symptoms of Depression Relationship Goals: Set healthy boundaries for others Set healthy boundaries for self Gain clarity on the conflict cycle and practice empowerment tools Gain insight related to behavioral patterns Increase tools related to communication Personal Vision: Develop mindfulness/meditation practice(s) Explore and engage in activities that align with interests Explore occupational stressors and practice work/life balance REFERRALS: Referral to Psychiatrist No Referral to Neuro Psych Evaluation-Physician Order Needed No Referral to Integrative Physician No Referral to Primary Care Physician No Referral to Shared Medical Appointment: none Other Notes: None. Crisis Support- reviewed with Patient: Yes In the case of a mental health emergency, contact 911 and/or report to the local emergency room-this department is not available on a crisis/24 hour basis. Crisis Text Line: Text the word HOME to 840144 Copeline: [phone] SALAZAR Mir documented in this encounter [facility] 04-04-2023 History of Present illness Narrative Images from the original note were not included. PSYC FOLLOW UP - PSYCHIATRIC PROGRESS NOTE DIAGNOSIS: Generalized Anxiety Disorder MDD, recurrent, moderate GAF: -60-51 Moderate symptoms or moderate difficulty in social, occupational or school functioning. TREATMENT PLAN: Complete the serum test ordered by her block piler. Start Pristiq to address symptoms if test is negative. If patient is , then schedule a visit to discuss other treatment options and monitor symptoms further. Follow up as needed. The effects and side effects of Pristiq was reviewed in detail with the patient. She is in agreement with the treatment plan and aware to reach out with any questions, concerns, or worsening of symptoms prior to the next appointment. CC: Follow up for psychiatric medication management. With the patient consent, visit was performed virtually. I have communicated my name and active licensure. The patient's identity and physical location were verified at the time of this visit. 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 HPI: Marzena Pickering is a 32 year old Female with a history of GUIDO presenting today for follow-up. Date of last visit: 03/08/2023 Plan from last visit: Discontinue Prozac due to lack of efficacy and side effects. Start Pristiq to address anxiety symptoms. Follow up in one week. Today Marzena shares that she has been feeling better physically. I feel more like myself. She will sleep a lot of hours but does not feel rested. She gets frustrated that she is not able to get things done around the house. She gets irritable due to this as well. She has noticed that she is more forgetful . Has missed an appointment. She loses her keys. She is not feeling sad. She is feeling better in regards to her mood. She is not engaging in catastrophic thinking. She has missed her period and She completed the urine testing. She has been in touch with OB. She is going to schedule a Serum test. She had some anxiety related to taking medications due to the weight gain side effects that she has experienced before. She has tried melatonin, benadryl, and tylenol PM for sleep difficulties. Her thyroid level was normal when assessed in the past by her PCP. Her kids are sleeping through the night. She still doesn't have the energy to do things that she needs to around the house. Interval Progress: Same Risks and benefits of the medication, including any black box warnings, were discussed with the patient. Social History: See HPI PATIENT DATA: Generalized Anxiety Disorder Scale (GUIDO-7) GUIDO - 7 SCORES 03/07/2023 03/08/2023 04/04/2023 GUIDO-7 Score 2 3 3 (0-4) minimal anxiety, (5-9) mild anxiety, (10-14) moderate anxiety, (15-21) severe anxiety Patient Health Questionnaire (PHQ-9) PHQ-9 03/07/2023 03/08/2023 04/04/2023 Score 9 5 11 (0-4) minimal depression, (5-9) mild depression, (10-14) moderate depression, (15-19) moderately severe depression, (20-27) severe depression ROS: See HPI General: Negative for fever, malaise, unintentional weight loss HEENT: Negative for recent changes in vision or hearing, no nasal drainage Respiratory: Negative for cough, wheezing or SOB Cardiovascular: Negative for chest pain GI: Negative for nausea, vomiting, change in bowel habits MUSCULOSKELETAL: Negative for acute back or joint pain SKIN: Negative for rash NEURO: Negative for headaches, seizures, focal neurological deficits All other systems negative. VITAL SIGNS: BP Temp Pulse Resp SpO2 MENTAL STATUS EXAMINATION: Appearance: Appropriately groomed, appears stated age Behavior: Appropriately engaged Psychomotor: No psychomotor agitation Cognition Level of Consciousness: Awake and alert. No fluctuation in wakefulness. Orientation: Grossly oriented Memory: Intact Attention/Concentration: Good Fund of Knowledge: Able to demonstrate an awareness of current events. Mood: Anxious Affect: Congruent to mood Speech/Language: Appropriate tone, prosody, elyssa, phonetics, and syntax Thought Form: Goal-directed. No loosening of associations. Thought Content: No delusions noted or endorsed. Perceptual Disturbances: Did not appear to respond to auditory stimuli. Safety: Suicidal Ideations: No suicidal ideation, intent or plan. Homicidal Ideations: No homicidal ideation, intent or plan. Insight: Appropriate Judgment: Appropriate I spent a total of 28 minutes on the date of the service which included preparing to see the patient, [id number] patient care, completing clinical documentation, and counseling and educating the patient/family/caregiver, ordering medications/labs. Samaria Haji APRN.CNP April 04, 2023 10:58 AM This note was partially generated using [employer] voice recognition system. Note was reviewed for accuracy. There may be minor misspellings or grammar miscues with [employer] voice recognition. documented in this encounter [facility] 03-08-2023 Instructions Samaria Haji APRN.CNP - 03/08/2023 3:02 PM EDT Halley Ivan, It was good to talk with you today. Below is a summary of the plan that we discussed during your appointment for reference. Of course, if you have any questions or concerns do not hesitate to reach out to me via a message or call. Samaria Crockett APRN.CNP PLAN AND FOLLOW UP: YOU SHOULD SEEK IMMEDIATE MEDICAL ATTENTION AT THE NEAREST EMERGENCY DEPARTMENT OR BY CALLING 911, IF ANY OF THE FOLLOWING OCCURS: - New or worsening thoughts of harming yourself (suicidal thoughts) or others (homicidal thoughts) - Not feeling safe at home or worrying about your ability to remain safe at home If you are having thoughts of harming yourself or others, then you can: - Call the National Suicide Hotline at 4-420-SCIGZZI ( ) or 2-873-777-TALK (4741) - Text 0JKDR to 999388 Medication Update: Stop Prozac 2. Start Desvenlafaxine (Pristiq) 25 mg ER - take 1 tablet once every morning with breakfast. Next appointment: SaturdayMarch 15 at 5 pm Virtual -- You may call the department appointment line at [phone] to schedule your appointment. -- Please call my nurse Shannon at [phone] or send me a message in [facility] [employer] with any questions or concerns between appointments. documented in this encounter [facility] 03-08-2023 History of Present illness Narrative PSYC FOLLOW UP - PSYCHIATRIC PROGRESS NOTE DIAGNOSIS: Generalized Anxiety Disorder GAF: -60-51 Moderate symptoms or moderate difficulty in social, occupational or school functioning. TREATMENT PLAN: Discontinue Prozac due to lack of efficacy and side effects. Start Pristiq to address anxiety symptoms. Follow up in one week. Medication Update: Stop Prozac 2. Start Desvenlafaxine (Pristiq) 25 mg ER - take 1 tablet once every morning with breakfast. The effects and side effects of Pristiq were discussed in detail with the patient. She is in agreement with the treatment plan and aware to reach out with any questions, concerns, or worsening of symptoms prior to the next appointment. CC: Follow up regarding psychiatric medication management. With the patient consent, visit was performed virtually. I have communicated my name and active licensure. The patient's identity and physical location were verified at the time of this visit. 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 HPI: Marzena Pickering is a 32 year old Female with a history of GUIDO presenting today for follow-up. Date of last visit: 11/20/2022 Plan from last visit: Increase Venlafaxine to 75 mg dose. Consider gradual increase as needed to manage symptoms and as tolerated. Start hydroxyzine as needed to manage hives associated with anxiety. Collaborate with her block piler in her care. Follow up in March. Today Marzena shares that she has been okay. Wonders if this medication Prozac is helping her. She has gained weight on the Prozac. Shares that it is around 11 pounds. She has been eating healthy and working out. She is feeling tired and she is sleeping more. Did not notice any improvement in her anxiety symptoms at the lower dose. Reports that she had noticed the most improvement on Venlafaxine but because she struggled to take it consistently, she experienced side effects on this medication. She has been getting irritable very easily. She struggles with intrusive thoughts regarding things she has no control over. This contributes to worsening of her anxiety. She has not been breaking out in anxiety related hives. Interval Progress: Slightly worse Risks and benefits of the medication, including any black box warnings, were discussed with the patient. Social History: See HPI PATIENT DATA: Generalized Anxiety Disorder Scale (GUIDO-7) GUIDO - 7 SCORES 11/20/2022 03/07/2023 03/08/2023 GUIDO-7 Score 3 2 3 (0-4) minimal anxiety, (5-9) mild anxiety, (10-14) moderate anxiety, (15-21) severe anxiety Patient Health Questionnaire (PHQ-9) PHQ-9 11/20/2022 03/07/2023 03/08/2023 Score 3 9 5 (0-4) minimal depression, (5-9) mild depression, (10-14) moderate depression, (15-19) moderately severe depression, (20-27) severe depression ROS: See HPI General: Negative for fever, malaise, unintentional weight loss HEENT: Negative for recent changes in vision or hearing, no nasal drainage Respiratory: Negative for cough, wheezing or SOB Cardiovascular: Negative for chest pain GI: Negative for nausea, vomiting, change in bowel habits MUSCULOSKELETAL: Negative for acute back or joint pain SKIN: Negative for rash NEURO: Negative for headaches, seizures, focal neurological deficits All other systems negative. VITAL SIGNS: BP Temp Pulse Resp SpO2 MENTAL STATUS EXAMINATION: Appearance: Appropriately groomed, appears stated age Behavior: Appropriately engaged Psychomotor: No psychomotor agitation Cognition Level of Consciousness: Awake and alert. No fluctuation in wakefulness. Orientation: Grossly oriented Memory: Intact Attention/Concentration: Good Fund of Knowledge: Able to demonstrate an awareness of current events. Mood: Anxious Affect: Congruent to mood Speech/Language: Appropriate tone, prosody, elyssa, phonetics, and syntax Thought Form: Goal-directed. No loosening of associations. Thought Content: No delusions noted or endorsed. Perceptual Disturbances: Did not appear to respond to auditory stimuli. Safety: Suicidal Ideations: No suicidal ideation, intent or plan. Homicidal Ideations: No homicidal ideation, intent or plan. Insight: Appropriate Judgment: Appropriate I spent a total of 28 minutes on the date of the service which included preparing to see the patient, [id number] patient care, completing clinical documentation, and counseling and educating the patient/family/caregiver, ordering medications/labs. Samaria Haji APRN.CNP March 08, 2023 2:23 PM This note was partially generated using [employer] voice recognition system. Note was reviewed for accuracy. There may be minor misspellings or grammar miscues with Dragon voice recognition. documented in this encounter [facility] 03-07-2023 History of Present illness Narrative Patient had to reschedule her appointment as she was called into work. documented in this encounter [facility] 01-02-2023 Instructions Marlee Almanza APRN.CNM - 01/02/2023 1:23 PM EDT Images from the original note were not included. To schedule an appointment please contact us at [phone], Option 1. For information pertaining to genetics services at the [facility], you can visit us online at [email or web address]. If you do not have access to information online, please contact us at the number above and we can send you information. *Clairvee is the only oral probiotic that has been proven to target the vagina's microbiome, restoring lactobacilli, and thus reducing the recurrence of BV and yeast. Rigorous clinical trials show that Clairvee significantly reduces these annoying recurrences while balancing the vagina's microbiome and pH. Clairvee should be taken orally each day for 15 days of the month; 15 days off; then resumed for 15 days and so forth. Clairvee begins to balance the microbiome in as little as 15 days with best results at 6 months. Clairvee is professionally recommended, easily ordered by the patient, costs about $35 per month, and directly shipped to the patient's home. Clairvee is a great option for patients who struggle with recurring BV and yeast who have had no other prevention strategies in the past. It is also a great choice for women who have GSM symptoms of odor, itching, and discharge with an intermediate jeannette score, but have not had any other means to eliminate the embarrassing symptoms. Non-Hormonal Vaginal Lubricants & Vaginal Moisturizers Symptoms of vaginal dryness can be managed by the regular use of vaginal moisturizing agents with supplemental use of vaginal lubricants for sexual intercourse. . Use of vaginal moisturizers and lubricants alone is effective treatment for vaginal dryness or dyspareunia (pain with intercourse) in some patients. Vaginal lubrications- Vaginal lubricants are designed to reduce friction and discomfort from dryness during sexual intercourse. The lubricant is applied inside the vagina and/or on the partner's penis or fingers just before sex. Coconut, Tintah, Avocado or Peanut oil- natural oils are not recommended for use with latex condoms or diaphragms as they can damage the latex Astroglide- has both water and silicone based KY Jelly- water based Just like me - Pure Romance Almost Naked Good Clean Love - Bio Nude ultra-sensitive Pjur- silicone ID Millennium- silicone Vaginal Moisturizers- Vaginal moisturizers are intended for use routinely, typically two or three days per week, not just during sexual activity. These products are typically bioadhesives. Many moisturizer products are available in pharmacies and online. [employer]ud[employer] Replens Suleiman Feminease Moist Again K-Y Liquid beads documented in this encounter [facility] 01-02-2023 History of Present illness Narrative Marzena is a 32 year old who presents for an annual gynecologic exam without complaints. Wanting to conceive and not attempting at this time. Doing well on Prozac 20mg, would like to increase to 40mg. Menses: cycles every 30 days and 7-8 days of flow. 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 LMP: 12/05/2022 (Approximate), Having periods Age at Menarche: Age at First : Age at Menopause: Philosophy Professor History Comments: Sexual Activity: Yes; Male Contraception: No contraception data on record PAST MEDICAL HISTORY Diagnosis Date Anxiety anxiety/depression ASCUS of cervix with negative high risk HPV Fatigue Herpes simplex virus (HSV) infection has tested positive for antibodies but never had an outbreak Maternal iron deficiency anemia affecting in third trimester, antepartum 09/15/2021 Metrorrhagia PAST SURGICAL HISTORY Procedure Laterality Date PAST SURGICAL HISTORY OF wisdom teeth FAMILY HISTORY Problem Relation Age of Onset No Known Problems Mother No Known Problems Father No Known Problems Sister Cancer Maternal Grandmother thyroid cancer Blood Clots Maternal Grandfather Cancer Paternal Grandmother ovarian cancer No Known Problems Paternal Grandfather other (dairy allergy) Daughter SOCIAL HISTORY Social History Tobacco Use Smoking status: Never Smokeless tobacco: Never Vaping Use Vaping Use: Never used Substance Use Topics Alcohol use: Not Currently Comment: Occasional Drug use: No REVIEW OF SYSTEMS Abdomen: No abdominal pain, nausea, vomiting, diarrhea, or constipation. No bloating, early satiety, indigestion, or increased flatulence. Bladder: No dysuria, gross hematuria, urinary frequency, urinary urgency, or incontinence. Breast: No breast lumps, nipple d/c, overlying skin changes, redness or skin retraction. Allergies and current medication updated:Yes EXAM: LMP 12/05/2022 BP 98/60 Ht 5' 4 (1.626 m) Wt 137 lb (62.1 kg) LMP 12/31/2022 (Approximate) No BMI 23.52 kg/m GENERAL: pleasant, female in no apparent distress HEENT: Normocephalic, atraumatic, mucus membranes moist, and no lesions NECK: Supple, full range of motion, no adenopathy, and thyroid normal DERMATOLOGY: Normal, without lesions, non-icteric, and non-hirsute BREAST: soft, non-tender, symmetric, no dominant mass, normal nipple-areolar complex, no lymphadenopathy, and no nipple discharge CHEST: Normal inspiratory effort ABDOMEN: soft, non-tender, and no masses PELVIC: external genitalia normal, normal Bartholin's glands, urethra, Goodyear's glands, no vulvar lesions, no cervical lesions, good vaginal support, small amount of white vaginal discharge present. discharge present, normal appearing perineal body and perianal region BIMANUAL: uterus normal size, shape and consistency, no adnexal masses, and non-tender RECTOVAGINAL: deferred. NEURO: alert and oriented x3,exam grossly non-focal EXTREMITIES: normal ASSESSMENT/PLAN: 1. Encounter for gynecological examination (general) (routine) without abnormal findings - ICD9: V72.31, ICD10: Z01.419 (primary diagnosis) - Completed pelvic and breast exam - Encouraged monthly BSE - Follow up for annual exam in one year. - TRIXIE/TRICHOMONAS NAAT - BACTERIAL VAGINOSIS NAAT - GONORRHEA/CHLAMYDIA NAAT 2. Atypical squamous cells of undetermined significance (ASCUS) on Papanicolaou smear of cervix - ICD9: 795.01, ICD10: R87.610 - PAP TEST 3. Screening for cervical cancer - ICD9: V76.2, ICD10: Z12.4 - Completed pelvic and breast exam - Encouraged monthly BSE - Follow up for annual exam in one year. 4. Encounter for screening for human papillomavirus (HPV) - ICD9: V73.81, ICD10: Z11.51 5. Family history of ovarian cancer - ICD9: V16.41, ICD10: Z80.41 - CONSULT TO MEDICAL GENETICS - GENERAL -PGM ovarian cancer 6. Vaginal discharge - ICD9: 623.5, ICD10: N89.8 - TRIXIE/TRICHOMONAS NAAT - BACTERIAL VAGINOSIS NAAT - GONORRHEA/CHLAMYDIA NAAT 7. Screening examination for STD (sexually transmitted disease) - ICD9: V74.5, ICD10: Z11.3 8. Encounter for preconception consultation - ICD9: V26.49, ICD10: Z31.69 -Reviewed pre-conception guidelines including folic acid supplementation, optimal timing of intercourse, avoidance of smoking, alcohol, and exposure to environmental chemicals. Reviewed need for evaluation if not within 12 months. 9. Generalized anxiety disorder - ICD9: 300.02, ICD10: F41.1 -Patient currently under care of Samaria Carroll APRN, CNP. Plan of care to increase Prozac to 40mg PO once daily. 1) Health maintenance: Pap done with HPV. Nutrition, exercise and routine health maintenance exams reviewed. Calcium/Vitamin D supplementation information provided. Lipids/glucose: followed by PCP Vitamin D: followed by PCP HPV vaccine: discussed, not interested 2) Contraception: none. Contraceptive options reviewed and information provided. 3) STD screening: Accepted STD check for Gonorrhea and Chlamydia. 4) Follow up one year or sooner as needed Marlee Almanza APRN.CNM documented in this encounter [facility] 12-17-2022 Miscellaneous Notes Called pharmacy and clarified. [facility] called and stated that they needed quantity directions for prescription. Can you please call them back? documented in this encounter [facility] 12-17-2022 Instructions Anjali Valero APRN.CNP - 12/17/2022 9:10 AM EDT Pt will follow up with PCP if not better in 2-3 days or go to emergency department if worsening condition Your rapid strep was negative, you will receive a call in 2-3 days IF throat culture is positive. Gargle with warm salt water, I recommend Tylenol or Ibuprofen for sore throat if needed. I recommend warm liquids and soft foods until symptoms resolve. Follow-up for recheck if your symptoms worsen or do not improve in 5-7 days. If you are having any trouble swallowing or breathing, seek immediate care in the ER for further evaluation. documented in this encounter [facility] 12-17-2022 History of Present illness Narrative December 17, 2022 HPI: Marzena Pickering is a 32 year old female who presents today for Sore throat, symptoms started 3 days ago. Exposed to Strep throat by her kids. Has taken Sudafed, last dose 2129, Tylenol yesterday morning. Also has had bilateral eye drainage/burning and kids had pink eye also. PAST MEDICAL HISTORY Diagnosis Date Anxiety anxiety/depression ASCUS of cervix with negative high risk HPV Fatigue Herpes simplex virus (HSV) infection has tested positive for antibodies but never had an outbreak Maternal iron deficiency anemia affecting in third trimester, antepartum 09/15/2021 Metrorrhagia PAST SURGICAL HISTORY Procedure Laterality Date PAST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 relief. You may also try otc cold and cough medication documented in this encounter [facility] 08-04-2022 History of Present illness Narrative August 04, 2022 Subjective Chief Complaint: Sinusitis and Upper Respiratory Infection (Patient stated that cough with chest congestion x 1 week. Chest congestion has gotten worse in the last few days. OTC: Tylenol and cough drops. ) HPI: Marzena Pickering is a 32 year old female who presents today for headache, dry cough, and chest congestion that started about a week ago after he kids were sick. She has tried otc Tylenol and cough drops that help some PAST MEDICAL HISTORY Diagnosis Date Anxiety anxiety/depression ASCUS of cervix with negative high risk HPV Fatigue Herpes simplex virus (HSV) infection has tested positive for antibodies but never had an outbreak Maternal iron deficiency anemia affecting in third trimester, antepartum 09/15/2021 Metrorrhagia PAST SURGICAL HISTORY Procedure Laterality Date PAST SURGICAL HISTORY OF wisdom teeth FAMILY HISTORY Problem Relation Age of Onset No Known Problems Mother No Known Problems Father No Known Problems Sister Cancer Maternal Grandmother thyroid cancer Blood Clots Maternal Grandfather Cancer Paternal Grandmother ovarian cancer No Known Problems Paternal Grandfather other (dairy allergy) Daughter Social History Tobacco Use Smoking status: Never Smokeless tobacco: Never Vaping Use Vaping Use: Never used Substance Use Topics Alcohol use: Not Currently Comment: Occasional Drug use: No ALLERGIES Allergen Reactions Tree Nuts Hives Occasionally gets hives when she eats cashews and almonds Immunization History Administered Date(s) Administered DTP [birth year] 04/20/1993 02/27/1995 10/08/1997 02/15/2005 HIB - 3 Dose Schedule [birth year] 04/20/1993 02/27/1995 HUMAN PAPILLOMAVIRUS QUADRIVALENT - Male and Females 02/27/2011 Hep A & Hep B Combined 10/22/2017 12/19/2017 Hepatitis B Peds/Adol 02/27/2011 Influenza Seasonal - High Dose - Age 65+ 05/13/2014 Influenza Seasonal Inj Quad Age 6 Mo-64 Yrs Pres Free 08/01/2017 03/31/2018 04/03/2019 Poliovirus, unspecified formulation [birth year] 02/27/1995 10/08/1997 Tdap (Age 7+) 12/19/2017 10/25/2020 09/15/2021 measles mumps rubella (MMR) vaccine (M-M-R II, PRIORIX) 02/27/1995 04/03/2005 Current Medications: fluconazole (DIFLUCAN) 150 mg tablet Take one tablet by mouth once. Then repeat every 3 days for 3 doses. amoxicillin (AMOXIL) 400 mg/5 mL suspension Take 10.9 mL by mouth twice daily. methylPREDNISolone (MEDROL, JAROD,) 4 mg Dose-Pack Take by mouth per package instructions benzonatate (TESSALON PERLES) 100 mg capsule Take 2 capsules by mouth three times daily as needed. drospirenone, contraceptive, (SLYND) 4 mg (28) tabet Take 1 tablet by mouth once daily for 28 days. sertraline (ZOLOFT) 100 mg tablet Take 1 tablet by mouth once daily. (Patient not taking: Reported on 04/19/2022) Vitamin with 29 mg Iron ( PLUS) 29 mg iron- 1 mg Take 1 tablet by mouth once daily. With DHA and folic acid as covered by insurance. (Patient not taking: Reported on 04/19/2022) [DISCONTINUED] multivit no.38-folate 6-patito (PRENATE AM) 1-500 mg tab Take 1 tablet by mouth once daily. Review of Systems Constitutional: Negative. HENT: Negative for congestion, sinus pain and sore throat. Rhinorrhea Eyes: Negative. Respiratory: Positive for cough. Negative for sputum production, shortness of breath and wheezing. Cardiovascular: Negative. Musculoskeletal: Negative for myalgias. Neurological: Positive for headaches. Objective BP 116/64 Pulse 57 Temp 98.5 Resp 14 Wt 125 lb (56.7kg) SpO2 99% LMP 08/01/2022 Physical Exam Vitals and nursing note reviewed. Constitutional: Appearance: Normal appearance. She is normal weight. HENT: Head: Normocephalic. Right Ear: Tympanic membrane, ear canal and external ear normal. Left Ear: Tympanic membrane, ear canal and external ear normal. Nose: Nose normal. Mouth/Throat: Mouth: Mucous membranes are moist. Pharynx: Oropharynx is clear. Cardiovascular: Rate and Rhythm: Normal rate and regular rhythm. Heart sounds: Normal heart sounds. Pulmonary: Effort: Pulmonary effort is normal. Breath sounds: Normal breath sounds. Musculoskeletal: Cervical back: Normal range of motion and neck supple. Skin: General: Skin is warm and dry. Neurological: Mental Status: She is alert and oriented to person, place, and time. Psychiatric: Behavior: Behavior normal. ASSESSMENT/PLAN: 1. Viral URI with cough - ICD9: 465.9, ICD10: J06.9 - Discussed viral etiology and rationale for treatment. - Symptomatic treatment with prn analgesia - Supportive care with fluids and rest - PREDNISONE 20 MG TABLET - BENZONATATE 200 MG CAPSULE Anne-Marie Chacon APRN.MOLD CARRIER documented in this encounter [facility] 03-07-2022 Miscellaneous Notes Last saw [facility] 12/26/21 for PP visit. Requested Prescriptions Pending Prescriptions Disp Refills sertraline (ZOLOFT) 100 mg tablet [Pharmacy Med Name: SERTRALINE HCL 100 MG TABLET] 30 tablet 10 Sig: take 1 tablet by mouth once daily RX INSTRUCTIONS: Pharmacy initiated this request. No need to notify patient. Yeni Craig RN documented in this encounter [facility] 12-27-2021 Miscellaneous Notes Letter faxed. Yeni Craig RN I informed patient and she requested to have it faxed to her work but was unable to provide fax number. She will call back with fax number. Signed. Marlee Almanza APRN.CNM Rebecca, A draft letter is on your desk for review. documented in this encounter [facility] 12-26-2021 Instructions Marlee Almanza APRN.CNM - 12/26/2021 11:35 AM EDT Patient assistance program-[employer] [email or web address]://[place]/residents/resour [email or web address]/drnuq-jvz-wonlj-[email or web address] [facility] Oral Contraceptives: The Pill Beginning the Pill Pills come in either a 21 day pack or a 28 day pack. With the 21 day pack you will take one pill for 21 days then no pill for 7 days, during which time you will have what is known as withdrawal bleeding. The 28 day pack allows you to take a pill every day of the cycle with no interruptions. The first 21 pills are the pills with the active ingredients and the last 7 are the nonmedical pills (placebo) or they may contain iron. There will be bleeding during the week you are taking the nonmedical pills. The advantage to the 28 day pack is that you don t have to keep track of when you stopped the pill. Unless otherwise instructed, you should start your pills the Saturday following your first day of bleeding with your next period (if your period starts on a Saturday, you should start pills the same day) Read your information packet that comes with the pills. Pill Benefits The pill is the most popular method of reversible control being used today. Millions of women rely on oral contraceptives as their control method. It is important to have an examination by your physician to determine if the pill is safe for you. There are several advantages associated with the pill: it is 97-98% effective; may improve acne; periods are more regular and less painful; there is less iron deficiency anemia in pill users. nursing home use is associated with a decreased incidence of ovarian and uterine cancer. There is also no evidence that the pill increases the incidence of any cancer. How Oral Contraceptives Work Oral contraceptives come in two varieties. One is the combination pill which contains both estrogen and progesterone. Combination pills are considered 98-99% effective in preventing . This pill comes in either monophasic, which delivers the same amount of estrogen and progesterone throughout the cycle; and triphasic, which try tries to mimic the normal hormone cycle by changing the levels of the hormones in the pills during the month. There is no real advantage to taking the one over the other. The other type of pill only contains progesterone. It is best used for women who can t take estrogen. This type of pill is slightly less effective than the combination pill in preventing . Oral contraceptives prevent ovulation (release of an egg from the ovary) by suppressing the pituitary gland s action. The pill does NOT prevent sexually transmitted disease. Obtaining a Prescription It is important to see your doctor before starting oral contraceptives so that you can have a full medical history taken and a physical examination given. Certain medical conditions may make the pill inappropriate for you, therefore it is very important to be honest and as complete as possible with the information you share with your doctor. The types of predisposing factors which would make the pill a poor choice of control would include: History of blood clots Stroke Serious liver disease or impaired liver function Unexplained vaginal bleeding or Cancer of the reproductive system Active gall bladder disease Hypertension Possible Side Effects It can take up to three months for your body to become adjusted to the pill. The more common side effects experienced at this time are: breakthrough spotting or bleeding, which is bleeding at any other time other than when you should be having a period; nausea or vomiting; breast tenderness; and mild fluid retention. There is no residential weight gain with the use of the pill. Breakthrough bleeding is the most common complaint of new pill users. There is no way to predict who will have it and there is no way of preventing it. Breakthrough bleeding usually subsides on its own with no further treatment after the first three months of taking the pill. If these symptoms continue to occur after the first three months you should check with your physician to see if there is any physical cause and possibly change to another control pill. Problems: 1. Missed 1 pill: Take 2 pills the next day. 2. Missed 2 pills: Take 2 pills the next day and 2 pills the following day. Also use another form of control (condoms) along with the pill for the rest of the month. 3. Missed 3 or more pills: You have two choices. You can take two pills each day until you are on schedule, plus use an additional form of control along with the pill for the rest of the month. Or you can stop the pill and start a completely new pack of pills the next Saturday. You must use another form of control with the pill for at least the first two weeks of the new pack. 4. You re ill and you have been vomiting or have diarrhea: You must use another form of control with the pill since the pill may not be fully absorbed during your illness. Continue to use the added control until the end of the cycle. 5. Desire to become : Stop using the pill for one month before trying to become . 6. Taking other medications: The control pill is less effective when you take the antibiotic Rifampin, epilepsy (seizure) drugs such as phenytoin, carbamazepine, phenobarbital, topiramate and some medications for HIV. Let your doctor know if you start taking any of these medications while on the pill. Symptoms to Notify Your Doctor with Immediately: 1. Pain in your chest or legs 2. Continuous blurred vision 3. Severe headaches 4. Slurred speech 5. Tingling or weakness on one side of your body 6. Shortness of breath 7. Swelling of one leg Refills of Control Pills You need to see a doctor every year for a refill of your prescription. This is necessary in order that your health can be monitored closely while you are taking control pills. If your prescription should before your next scheduled appointment you can usually get a one month extension from your doctors office if you call during regular business hours about one week before you need to start the new package of pills. This allows the physician to refer to your chart for necessary health information. documented in this encounter [facility] 12-26-2021 History of Present illness Narrative VISIT Marzena Pickering is a 31 year old year old here for visit. Delivery Summary: 11/16/2021 By SEBASTIAN Stahl 6lb 11oz. [place] ROS/ Recovery: Feeding: Breast feeding problems: None Menses since delivery: cramping Menstrual pattern prior to : Regular periods [place] since delivery: Not resumed Depression: denies symptoms of depression. Taking Zoloft 100mg PO once daily. Seeing counselor OB Depression and Anxiety Screening- This Encounter (since 12/25/2021) Over the past 2 weeks have you felt down, depressed, or hopeless? Negative Over the past two weeks, have you felt little interest or pleasure in doing things? Negative Feeling nervous, anxious or on edge 0-Not at all Not being able to stop or control worrying 0-Not al all Anxiety Pre-Screening Total (If >/= 3 additional questions will be reviewed) 0 Emotional support: Yes Bowel symptoms: Negative for abdominal discomfort, blood in stools or black stools and change in bowel habits Abdomen: N/A Bladder symptoms: No dysuria, gross hematuria, urinary frequency, urinary urgency, or incontinence Other issues: None Last Pap: 2020 abnormal, ascus HPV: N/A PAST MEDICAL HISTORY Diagnosis Date Anxiety anxiety/depression ASCUS of cervix with negative high risk HPV Fatigue Herpes simplex virus (HSV) infection has tested positive for antibodies but never had an outbreak Maternal iron deficiency anemia affecting in third trimester, antepartum 09/15/2021 Metrorrhagia PAST SURGICAL HISTORY Procedure Laterality Date PAST SURGICAL HISTORY OF wisdom teeth FAMILY HISTORY Problem Relation Age of Onset No Known Problems Mother No Known Problems Father No Known Problems Sister Cancer Maternal Grandmother thyroid cancer Blood Clots Maternal Grandfather Cancer Paternal Grandmother ovarian cancer No Known Problems Paternal Grandfather other (dairy allergy) Daughter Social History Tobacco Use Smoking status: Never Smoker Smokeless tobacco: Never Used Vaping Use Vaping Use: Never used Substance Use Topics Alcohol use: Not Currently Comment: Occasional Drug use: No PHYSICAL EXAMINATION: BP 110/60 Wt 133 lb 9.6 oz (60.6kg) LMP 02/18/2021 GENERAL: pleasant, female in no apparent distress HEENT: Normocephalic, atraumatic, mucus membranes moist and no lesions NECK: Supple, full range of motion, no adenopathy and thyroid normal DERMATOLOGY: Normal, without lesions, non-icteric and non-hirsute BREAST: soft, non-tender, symmetric, no dominant mass, normal nipple-areolar complex, no lymphadenopathy and no nipple discharge CHEST: Normal inspiratory effort ABDOMEN: soft, non-tender and no masses. INCISION: N/A PELVIC: external genitalia normal, normal Bartholin's glands, urethra, Goodyear's glands, no vulvar lesions, no cervical lesions, good vaginal support, physiologic discharge present, normal appearing perineal body and perianal region BIMANUAL: uterus normal size, shape and consistency, no adnexal masses and non-tender NEURO: alert and oriented x3,exam grossly non-focal EXTREMITIES: normal ASSESSMENT AND PLAN: 31 year old status post with normal course. Contraception plan: Oral contraceptives I discussed with the patient the risks, benefits, mechanism of action and alternatives to combined hormonal contraceptive use. No medical contraindications. Reviewed risk of blood clot, stroke and heart attack with hormonal contraception. Reviewed warning signs ACHES. Discussed stopping control 4 weeks prior to scheduled surgery if will be immobile. I reviewed with her the administration options and when to start. Her questions were answered and she desired to start. Pap smear at annual visit Follow up: Progesterone only OCP - patient will call when no longer , RTC for annual exams and PRN. Reviewed child spacing and recommendation of 18 months. Return for annual exam with pap smear Marlee Almanza APRN.CNM documented in this encounter [facility] 11-24-2021 History of Present illness Narrative Patient delivered via by Maribeth on 11/16/21 at [facility]. See OB history. Yeni Craig RN documented in this encounter [facility] 11-14-2021 Miscellaneous Notes ALIX-S: Marzena Pickering is a 31 year old female who presents at 36w5d with NIKKI:12/07/2021, by Ultrasound for a routine visit. Good FM. Denies headache, visual changes, chest pain, shortness of breath, vaginal bleeding, leakage of fluid, or dysuria. Feeling well, no complaints. O: See flow sheet Gen: No apparent distress Abd: Gravid, nontender S<D, 20lb, vertex by cervical exam ASSESSMENT/PLAN: 1. 36 weeks gestation of 2. Uterine size-date discrepancy, third trimester P: 1) PTL precautions reviewed and when to call 2) RTO in one week 3) Did not take iron, last hgb 11.1 4) US for S<D 5) GBS today Marlee Almanza APRN.CNM documented in this encounter [facility] 11-14-2021 Inna Cardenas MA - 11/14/2021 11:25 AM EDT SEQUENTIAL SCREENINGS The [facility] offers sequential screenings for women who are interested in screenings for chromosomal abnormalities and certain defects during a . The sequential screen combines ultrasound and blood tests to determine the risk of chromosomal abnormalities, including Down's Syndrome (Trisomy 21) and Trisomy 18, as well as open neural tube defects including spina bifida. Ultrasound examination is performed between 11 weeks and 13 weeks gestational age. Blood tests are drawn after the ultrasound and again later in the between 15 and 21 weeks gestational age. Please let your physician know if you are interested in this testing. It will require an appointment with our police service technician. This is not an ultrasound performed by a physician in our office during a routine visit. SIGNS AND SYMPTOMS OF LABOR 1. Contractions every 10 minutes or more often 2. Clear, pink, or brownish fluid (water) leaking from vagina 3. Feeling that baby is pushing down, pressure 4. Low, dull backache 5. Cramps that feel like a period 6. Cramps with or without diarrhea If you notice any of the above symptoms, contact our office at [phone] and ask to speak with a nurse. After hours, you can call doctors registry at [phone] OR call [facility] at [phone] and ask to have the doctor ruby on rails engineer paged. If you consider this an emergency, dial [phone] or go to your nearest emergency department. NEED HELP? Are you dealing with a violent or abusive relationship? Are you a victim of rape or sexual assult? Call [facility] ([place]) 24 hour Crisis Hotline: 596.143.7310 or 871-189-9260. MANUAL Your Guide to a Healthy manual is now on-line. Visit [email or web address] to download your free copy documented in this encounter [facility] 10-31-2021 Miscellaneous Notes ALIX-S: Marzena Pickering is a 31 year old female who presents at 34w5d with NIKKI:12/07/2021, by Ultrasound for a routine visit. Good FM. Denies headache, visual changes, chest pain, shortness of breath, vaginal bleeding, leakage of fluid, or dysuria. Went to [facility] for LOF and negative. Still having irregular contractions but no signs of labor. O: See flow sheet Gen: No apparent distress Abd: Gravid, nontender ASSESSMENT/PLAN: 1. 34 weeks gestation of P: 1) PTL precautions reviewed and when to call. No signs of PTL. Discussed contractions, fluid leakage, and if something is changing. 2) RTO in 2 weeks 3) Continues ASA 4) Acyclovir for prophylaxis 5) GBS next visit 6) 09/15/21 Tdap given Marlee Almanza APRN.CNM documented in this encounter [facility] 10-31-2021 Instructions Candelaria Nguyễn Ma - 10/31/2021 2:07 PM EDT [facility]Achieve X for diastasis Recti exercises during and for SIGNS AND SYMPTOMS OF LABOR 1. Contractions every 10 minutes or more often 2. Clear, pink, or brownish fluid (water) leaking from vagina 3. Feeling that baby is pushing down, pressure 4. Low, dull backache 5. Cramps that feel like a period 6. Cramps with or without diarrhea If you notice any of the above symptoms, contact our office at [phone] and ask to speak with a nurse. After hours, you can call doctors registry at [phone] OR call [facility] at [phone] and ask to have the doctor ruby on rails engineer paged. If you consider this an emergency, dial 9-1-8 or go to your nearest emergency department. NEED HELP? Are you dealing with a violent or abusive relationship? Are you a victim of rape or sexual assult? Call [facility] ([place]) 24 hour Crisis Hotline: 527.367.6238 or 110-074-2270. MANUAL Your Guide to a Healthy manual is now on-line. Visit [email or web address] to download your free copy documented in this encounter [facility] 10-27-2021 Miscellaneous Notes Letter sent via [employer]. Yeni Craig RN That is ok 34w0d Saw SW yesterday. Asking for a new letter. States her work wants letter that states she can return to work with NO restrictions for today since she is able to do her normal job duties. They are going to allow her to only work three 8 hour shifts a week. If okay for letter just needs released to [facility]. Yeni Craig RN documented in this encounter [facility] 10-25-2021 History of Present illness Narrative NST SUMMARY PROVIDER ASSESSMENT AND INTERPRETATION Indications for NST: Decreased Movement Baseline: 140 Variability: Moderate Accelerations: Present 15 X 15 Decelerations: None Interpretation: Reactive SIGNATURE: Erendira Hayes DO documented in this encounter [facility] 10-25-2021 Miscellaneous Notes SW- Add on visit. Follow up from admission at [facility] for threatened PTL. She states she was admitted for 3 days and progressed to 3 cm. Received second course of BMZ. Having off and on ctx's and pressure. Mucous discharge. No bleeding. DFM yesterday and today. No regular ctx's today. PE: Gen- NAD, well appearing, comfortable Abd- Soft, gravid LE- No edema See flowsheet A/p 33 wk gestation - Threatened PTL: GBS negative. Received two rounds of BMZ. Discussed PTL precautions and reasons to call. Pt would like to continue to work and she states she is uncomfortable regardless of activity. Does not have paid maternity leave. Has some help as home with daughter. Provided her a return to work letter with restrictions. To let us know how she is doing with restrictions and go from there. Cont Acyclovir for HSV prophylaxis. Discussed we would want to avoid frequent cervical exams, but she is concerned she will go into labor and not be aware - discussed option for cervical exams at future appointments but could case vb and worsened uterine irritability - NST today reactive - RTO 1 wk Erendira Hayes DO documented in this encounter [facility] 10-25-2021 Instructions Ageuda De Paz MA - 10/25/2021 10:47 AM EDT SEQUENTIAL SCREENINGS The [facility] offers sequential screenings for women who are interested in screenings for chromosomal abnormalities and certain defects during a . The sequential screen combines ultrasound and blood tests to determine the risk of chromosomal abnormalities, including Down's Syndrome (Trisomy 21) and Trisomy 18, as well as open neural tube defects including spina bifida. Ultrasound examination is performed between 11 weeks and 13 weeks gestational age. Blood tests are drawn after the ultrasound and again later in the between 15 and 21 weeks gestational age. Please let your physician know if you are interested in this testing. It will require an appointment with our police service technician. This is not an ultrasound performed by a physician in our office during a routine visit. SIGNS AND SYMPTOMS OF LABOR 1. Contractions every 10 minutes or more often 2. Clear, pink, or brownish fluid (water) leaking from vagina 3. Feeling that baby is pushing down, pressure 4. Low, dull backache 5. Cramps that feel like a period 6. Cramps with or without diarrhea If you notice any of the above symptoms, contact our office at [phone] and ask to speak with a nurse. After hours, you can call doctors registry at [phone] OR call [facility] at [phone] and ask to have the doctor ruby on rails engineer paged. If you consider this an emergency, dial 9-1-9 or go to your nearest emergency department. NEED HELP? Are you dealing with a violent or abusive relationship? Are you a victim of rape or sexual assult? Call [facility] ([facility] 24 hour Crisis Hotline: 138.374.8440 or 973-104-0937. MANUAL Your Guide to a Healthy manual is now on-line. Visit [email or web address] to download your free copy documented in this encounter [facility] 10-23-2021 Hospital Discharge instructions Patient Education 10/23/2021 17:03:47 7 - Labor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 high-risk 27 weeks gestation of ([facility]) state, incidental Bleeding of eye, left [facility] this [facility] Diagnosis contractions (HCC)- Primary Threatened premature labor, antepartum Conjunctival hemorrhage of left eye- Primary Conjunctival hemorrhage [facility] Diagnosis contractions (HCC)- Primary Threatened premature labor, antepartum Supervision of high risk in third trimester ([facility])- Primary Unspecified high-risk 30 weeks gestation of ([facility]) state, incidental HSV-2 seropositive Other and unspecified nonspecific immunological findings History of depression Anxiety and depression Dysthymic disorder Bleeding of eye, left Antepartum anemia complicating in third trimester ([facility]) [facility]* Diagnosis Uterine contractions (HCC)- Primary 32 weeks gestation of ([facility]) state, incidental 31 weeks gestation of ([facility]) state, incidental contractions (HCC) Threatened premature labor, antepartum 31 weeks gestation of ([facility]) state, incidental Supervision of high risk in third trimester ([facility])- Primary Unspecified high-risk 31 weeks gestation of ([facility]) state, incidental HSV-2 seropositive Other and unspecified nonspecific immunological findings Anxiety and depression Dysthymic disorder Antepartum anemia complicating in third trimester (HCC) Heartburn during in third trimester ([facility]) [facility]* Diagnosis Uterine contractions (HCC)- Primary 32 weeks gestation of ([facility]) state, incidental 31 weeks gestation of ([facility]) state, incidental contractions (HCC) Threatened premature labor, antepartum Supervision of other high risk pregnancies, third trimester (HCC)- Primary Uterine size-date discrepancy, third trimester (HCC) 33 weeks gestation of (HCC) state, incidental Herpes simplex virus (HSV) infection Antepartum anemia complicating in third trimester (HCC) Heartburn during in third trimester (HCC) Anxiety and depression Dysthymic disorder documented [facility]* Diagnosis Uterine contractions (HCC)- Primary 32 weeks gestation of (HCC) state, incidental 31 weeks gestation of (HCC) state, incidental contractions (HCC) Threatened premature labor, antepartum Uterine size-date discrepancy, third trimester ([facility]) documented [facility] encounter [facility]* Diagnosis Onset Date Resolution Status Admit Date 34 weeks gestation of acute March 17 8:25pm contractions acute Mar 8:25pm [facility] Work Phone: History and physical note Author Miriam Demarco [facility] Note Date/Time March 17, 2025 8:42pm [facility] Medical Records Department [address] [place] [address] OB Triage Physician Note 03/17/252035 MR#: [id number] Acct: [id number] Name: MARZENA PICKERING Rep #:[id number] : 1990 34 From: Miriam Gr MD PCP: Care Physician,No Primary Status :REG CLI Y Location: [place] [id number] HPI - General General Date of Service: 03/17/25 HPI Narrative MARZENA PICKERING, is a 34 F @ 34.6 weeks who presents c/o contractions. reports has been not feeling great- no fevers - but is not drinking much water. denies VB, LOF. [facility] Medical History (Updated 03/17/25 @ 20:[address] Miriam Ramsey MD) Genital herpes affecting Home Medications ?Medication ?Instructions ?Recorded ?Last Taken ?Type 1 tab PO/SL DAILY Check with 12/27/20 10/07/21 07:00 History primary doctor sertraline 100 mg tablet (Zoloft) 100 mg PO DAILY [facility] k with primary 12/27/20 10/07/21 07:00 History doctor acyclovir 400 mg tablet 400 mg PO TID Check with sherine osborne 11/07/21 11/07/21 History doctor ferrous sulfate 325 mg (65 mg 325 mg PO QDAY 03/17/25 Unknown History iron) tablet (Feosol) omeprazole 20 mg capsule,delayed 20 mg PO DAILY Unknown History release Allergy/AdvReac Type Severity Reaction Status Date / Time tree nut Allergy Hives Verified 11/16/21 22:53 Family History Sister Family history of defect Surgical History (Updated 11/16/21 @ 23:40 by Miranda Gutierrez) History of surgery Social History (Updated 12/27/20 @ 17:58 by Yulia Benavidez) adopted: Yes Smoking Status: Never smoker History Elective abortions Hx Para 1 Spontaneous abortions Hx # Term Pregnancies Ectopic pregnancies Hx # Pregnancies Multiple births # of living children Physical Exam Narrative VE: Closed/thick/-3 Const alert and oriented x3 General Appearance: cooperative HEENT normocephalic GI GI Narrative: Gravid, non tender to palpation. OB / External & Speculum: external exam normal Extremity normal to inspection Skin no rashes or lesions noted Neuro oriented x3 and CN's II-XII intact bilaterally Psych Appearance: grossly normal Assessment & Plan (1) contractions: (2) 34 weeks gestation of : PLAN: Plan @ 34.6 weeks- c/o contractions 1) NST today 2) vaginal exam - no signs of labor 3) PO hydration reviewed 4) plan for dc home if NSt reactive 03/17/252041 <Electronically signed by Miriam Lowe MD> Date _ Miriam Ramsey MD Cosigner Signature (if applicable): Date CC: Dr Miriam Ramsey MD; No Primary Care Physician ~ Signed [facility] Work Phone: Hospital course Narrative No data available for this section [facility] Progress note No data available for this section [facility] Reason for referral (narrative)* Diagnostic Procedure Only (Routine) - Authorized Specialty Diagnoses / Procedures Referred By Contac t Referred To Contact [facility] Diagnoses 36 weeks gestation of Uterine size-date discrepancy, third trimester Procedures OBSTETRIC ULTRASOUND WHI US PREG UTERUS AFTER 1ST TRIMEST GESTATION Marlee Almanza APRN.CNM [address] [place] [address] [facility] [address] [place] [address] Referral ID Status Reason Start Date Expiration Date Visits Requested Visits Authorized [id number] Authorized Auto-Generat ed Referral 11/16/2021 07/14/2022 1 1 [facility] for referral (narrative)* Diagnostic Procedure Only (Routine) - Authorized Specialty Diagnoses / Procedures Referred By Contac t Referred To Contact [facility] Diagnoses Abnormal uterine bleeding (AUB) Procedures US FEMALE PELVIS TRANSVAG US TRANSVAGINAL Marlee Almanza APRN.CNM [address] [place] [address] [facility] Referral ID Status Reason Start Date Expiration Date Visits Requested Visits Authorized [id number] Authorized Auto-Generat ed Referral 11/06/2023 12/05/2024 1 1 [facility] for referral (narrative)No reason for referral information [facility]WL[facility] Work Phone: Summary Purpose Family History Relationship Condition Age at Onset Recorded Date/T sergio sister Family history of defect Unknown Advance Directives Advance Directive Response Recorded Date/ Time Living Will No December 27, 2020 5:00pm Power of Transit Specialist No December 27 5:00pm Advance Directive Response Recorded Date/ Time Living Will No November 16, 2021 10 :59pm Power of Transit Specialist No November 16, 2021 10:59pm Chief Complaint and Reason for Visit Chief Complaint RULE OUT PRE TERM LA BOR RULE OUT PRE TERM LABOR Reason for Visit 31 weeks gestation o f contractions Chief Complaint RULE OUT PRE TERM LA BOR RULE OUT PRE TERM LABOR NST, CELESTONE SHOT Reason for Visit 31 weeks gestation o f contractions Chief Complaint RULE OUT PRE TERM LA BOR RULE OUT PRE TERM LABOR NST, CELESTONE SHOT Reason for Visit 31 weeks gestation o f contractions 31 weeks gestation of Decreased movement contractions Chief Complaint RULE OUT PRE TERM LA BOR RULE OUT PRE TERM LABOR NST, CELESTONE SHOT RULE OUT LABOR VAGINAL DELIVERY Reason for Visit 31 weeks gestation o f contractions 31 weeks gestation of Decreased movement contractions 35 weeks gestation of False labor before 37 completed weeks of gestation 37 weeks gestation of Active labor at term Anxiety Depression History of OCD (obsessive compulsive disorder) History of pre-term labor HSV-2 seropositive Iron deficiency anemia Periurethral laceration, delivered, current hospitalization Short interval between pregnancies affecting , antepartum Vaginal delivery Chief Complaint Admit Date R/O March 17, 2025 8:25pm Reason for Visit Admit Date 34 weeks gestation of Septembe 2024 8:25pm contractions March 17, 2025 8:25pm Health Concerns Infection Onset Date Last Indicated Resolved Time COVID-19 Confirmed 10/04/2022 10/04/2022 Reason for Referral Specialty Diagnoses / Procedures Referred By Lucrecia olmstead Referred To Contact Diagnoses Family history of ovarian cancer Procedures CONSULT TO MEDICAL GENETICS - GENERAL OFFICE/OUTPATIENT [facility] 60-74 MINUTES MEDICAL GENETICS COUNSELING EACH 30 MINUTES Marlee Almanza APRN.[place] [address] [address] Referral ID Status Reason Start Date Expiration Date Visits Requested Visits Authorized [id number] Authorized PCP Requested Referral Auto-Generate d Referral 01/02/2023 01/02/2024 1 1 Additional Source Comments INFORMATION SOURCE (unrecogn ized section and content) DATE CREATED AUTHOR 08/26/2021 [facility] [place] DATE CREATED AUTHOR AUTHOR'S ORGANIZ ATION 10/01/2021 [facility] DATE CREATED AUTHOR AUTHOR'S ORGANIZ ATION 01/31/2022 [facility] DATE CREATED AUTHOR AUTHOR'S ORGANIZ ATION 05/20/2022 [facility] DATE CREATED AUTHOR AUTHOR'S ORGANIZ ATION 12/25/2022 [facility] DATE CREATED AUTHOR AUTHOR'S ORGANIZ ATION 10/06/2024 [facility] DATE CREATED AUTHOR AUTHOR'S ORGANIZ ATION 01/21/2025 [facility] DATE CREATED AUTHOR AUTHOR'S ORGANIZ ATION 03/17/2025 [facility] DATE CREATED AUTHOR AUTHOR'S ORGANIZ ATION 03/19/2025 [facility] DATE CREATED AUTHOR AUTHOR'S ORGANIZ ATION 03/25/2025 [facility] Source Comments (unrecognize d section and content) In the event this informatio n is protected by the Federal Confidentiality of Alcohol and Drug Abuse Patient Records regulations: The Federal rules restrict any use of the information to criminally investigate or prosecute any alcohol or drug abuse patient.[facility] the event this information is protected by the Federal Confidentiality of Alcohol and Drug Abuse Patient Records regulations: The Federal rules restrict any use of the information to criminally investigate or prosecute any alcohol or drug abuse patient.[facility] HospitalIn the event this information is protected by the Federal Confidentiality of Alcohol and Drug Abuse Patient Records regulations: The Federal rules restrict any use of the information to criminally investigate or prosecute any alcohol or drug abuse patient.[facility] HospitalIn the event this information is protected by the Federal Confidentiality of Alcohol and Drug Abuse Patient Records regulations: The Federal rules restrict any use of the information to criminally investigate or prosecute any alcohol or drug abuse patient.[facility] HospitalIn the event this information is protected by the Federal Confidentiality of Alcohol and Drug Abuse Patient Records regulations: The Federal rules restrict any use of the information to criminally investigate or prosecute any alcohol or drug abuse patient.[facility] HospitalIn the event this information is protected by the Federal Confidentiality of Alcohol and Drug Abuse Patient Records regulations: The Federal rules restrict any use of the information to criminally investigate or prosecute any alcohol or drug abuse patient.[facility] HospitalIn the event this information is protected by the Federal Confidentiality of Alcohol and Drug Abuse Patient Records regulations: The Federal rules restrict any use of the information to criminally investigate or prosecute any alcohol or drug abuse patient.[facility] HospitalIn the event this information is protected by the Federal Confidentiality of Alcohol and Drug Abuse Patient Records regulations: The Federal rules restrict any use of the information to criminally investigate or prosecute any alcohol or drug abuse patient.[facility] HospitalIn the event this information is protected by the Federal Confidentiality of Alcohol and Drug Abuse Patient Records regulations: The Federal rules restrict any use of the information to criminally investigate or prosecute any alcohol or drug abuse patient.[facility] HospitalIn the event this information is protected by the Federal Confidentiality of Alcohol and Drug Abuse Patient Records regulations: The Federal rules restrict any use of the information to criminally investigate or prosecute any alcohol or drug abuse patient.[facility] HospitalIn the event this information is protected by the Federal Confidentiality of Alcohol and Drug Abuse Patient Records regulations: The Federal rules restrict any use of the information to criminally investigate or prosecute any alcohol or drug abuse patient.[facility] HospitalIn the event this information is protected by the Federal Confidentiality of Alcohol and Drug Abuse Patient Records regulations: The Federal rules restrict any use of the information to criminally investigate or prosecute any alcohol or drug abuse patient.[facility] HospitalIn the event this information is protected by the Federal Confidentiality of Alcohol and Drug Abuse Patient Records regulations: The Federal rules restrict any use of the information to criminally investigate or prosecute any alcohol or drug abuse patient.[facility] HospitalIn the event this information is protected by the Federal Confidentiality of Alcohol and Drug Abuse Patient Records regulations: The Federal rules restrict any use of the information to criminally investigate or prosecute any alcohol or drug abuse patient.[facility] HospitalIn the event this information is protected by the Federal Confidentiality of Alcohol and Drug Abuse Patient Records regulations: The Federal rules restrict any use of the information to criminally investigate or prosecute any alcohol or drug abuse patient.[facility] HospitalIn the event this information is protected by the Federal Confidentiality of Alcohol and Drug Abuse Patient Records regulations: The Federal rules restrict any use of the information to criminally investigate or prosecute any alcohol or drug abuse patient.[facility] HospitalIn the event this information is protected by the Federal Confidentiality of Alcohol and Drug Abuse Patient Records regulations: The Federal rules restrict any use of the information to criminally investigate or prosecute any alcohol or drug abuse patient.[facility] HospitalIn the event this information is protected by the Federal Confidentiality of Alcohol and Drug Abuse Patient Records regulations: The Federal rules restrict any use of the information to criminally investigate or prosecute any alcohol or drug abuse patient.[facility] HospitalIn the event this information is protected by the Federal Confidentiality of Alcohol and Drug Abuse Patient Records regulations: The Federal rules restrict any use of the information to criminally investigate or prosecute any alcohol or drug abuse patient.[facility] HospitalIn the event this information is protected by the Federal Confidentiality of Alcohol and Drug Abuse Patient Records regulations: The Federal rules restrict any use of the information to criminally investigate or prosecute any alcohol or drug abuse patient.[facility] HospitalIn the event this information is protected by the Federal Confidentiality of Alcohol and Drug Abuse Patient Records regulations: The Federal rules restrict any use of the information to criminally investigate or prosecute any alcohol or drug abuse patient.[facility] HospitalIn the event this information is protected by the Federal Confidentiality of Alcohol and Drug Abuse Patient Records regulations: The Federal rules restrict any use of the information to criminally investigate or prosecute any alcohol or drug abuse patient.[facility] HospitalIn the event this information is protected by the Federal Confidentiality of Alcohol and Drug Abuse Patient Records regulations: The Federal rules restrict any use of the information to criminally investigate or prosecute any alcohol or drug abuse patient.[facility] HospitalIn the event this information is protected by the Federal Confidentiality of Alcohol and Drug Abuse Patient Records regulations: The Federal rules restrict any use of the information to criminally investigate or prosecute any alcohol or drug abuse patient.[facility] HospitalIn the event this information is protected by the Federal Confidentiality of Alcohol and Drug Abuse Patient Records regulations: The Federal rules restrict any use of the information to criminally investigate or prosecute any alcohol or drug abuse patient.[facility] HospitalIn the event this information is protected by the Federal Confidentiality of Alcohol and Drug Abuse Patient Records regulations: The Federal rules restrict any use of the information to criminally investigate or prosecute any alcohol or drug abuse patient.[facility] HospitalIn the event this information is protected by the Federal Confidentiality of Alcohol and Drug Abuse Patient Records regulations: The Federal rules restrict any use of the information to criminally investigate or prosecute any alcohol or drug abuse patient.[facility] HospitalIn the event this information is protected by the Federal Confidentiality of Alcohol and Drug Abuse Patient Records regulations: The Federal rules restrict any use of the information to criminally investigate or prosecute any alcohol or drug abuse patient.[facility] HospitalIn the event this information is protected by the Federal Confidentiality of Alcohol and Drug Abuse Patient Records regulations: The Federal rules restrict any use of the information to criminally investigate or prosecute any alcohol or drug abuse patient.[facility] HospitalIn the event this information is protected by the Federal Confidentiality of Alcohol and Drug Abuse Patient Records regulations: The Federal rules restrict any use of the information to criminally investigate or prosecute any alcohol or drug abuse patient.[facility] HospitalIn the event this information is protected by the Federal Confidentiality of Alcohol and Drug Abuse Patient Records regulations: The Federal rules restrict any use of the information to criminally investigate or prosecute any alcohol or drug abuse patient.[facility] HospitalIn the event this information is protected by the Federal Confidentiality of Alcohol and Drug Abuse Patient Records regulations: The Federal rules restrict any use of the information to criminally investigate or prosecute any alcohol or drug abuse patient.[facility] HospitalIn the event this information is protected by the Federal Confidentiality of Alcohol and Drug Abuse Patient Records regulations: The Federal rules restrict any use of the information to criminally investigate or prosecute any alcohol or drug abuse patient.[facility] HospitalIn the event this information is protected by the Federal Confidentiality of Alcohol and Drug Abuse Patient Records regulations: The Federal rules restrict any use of the information to criminally investigate or prosecute any alcohol or drug abuse patient.[facility] HospitalIn the event this information is protected by the Federal Confidentiality of Alcohol and Drug Abuse Patient Records regulations: The Federal rules restrict any use of the information to criminally investigate or prosecute any alcohol or drug abuse patient.[facility] HospitalIn the event this information is protected by the Federal Confidentiality of Alcohol and Drug Abuse Patient Records regulations: The Federal rules restrict any use of the information to criminally investigate or prosecute any alcohol or drug abuse patient.[facility] HospitalIn the event this information is protected by the Federal Confidentiality of Alcohol and Drug Abuse Patient Records regulations: The Federal rules restrict any use of the information to criminally investigate or prosecute any alcohol or drug abuse patient.[facility] HospitalIn the event this information is protected by the Federal Confidentiality of Alcohol and Drug Abuse Patient Records regulations: The Federal rules restrict any use of the information to criminally investigate or prosecute any alcohol or drug abuse patient.[facility] HospitalIn the event this information is protected by the Federal Confidentiality of Alcohol and Drug Abuse Patient Records regulations: The Federal rules restrict any use of the information to criminally investigate or prosecute any alcohol or drug abuse patient.[facility] HospitalIn the event this information is protected by the Federal Confidentiality of Alcohol and Drug Abuse Patient Records regulations: The Federal rules restrict any use of the information to criminally investigate or prosecute any alcohol or drug abuse patient.[facility] HospitalIn the event this information is protected by the Federal Confidentiality of Alcohol and Drug Abuse Patient Records regulations: The Federal rules restrict any use of the information to criminally investigate or prosecute any alcohol or drug abuse patient.[facility] HospitalIn the event this information is protected by the Federal Confidentiality of Alcohol and Drug Abuse Patient Records regulations: The Federal rules restrict any use of the information to criminally investigate or prosecute any alcohol or drug abuse patient.[facility] HospitalIn the event this information is protected by the Federal Confidentiality of Alcohol and Drug Abuse Patient Records regulations: The Federal rules restrict any use of the information to criminally investigate or prosecute any alcohol or drug abuse patient.[facility] HospitalIn the event this information is protected by the Federal Confidentiality of Alcohol and Drug Abuse Patient Records regulations: The Federal rules restrict any use of the information to criminally investigate or prosecute any alcohol or drug abuse patient.[facility] HospitalIn the event this information is protected by the Federal Confidentiality of Alcohol and Drug Abuse Patient Records regulations: The Federal rules restrict any use of the information to criminally investigate or prosecute any alcohol or drug abuse patient.[facility] HospitalIn the event this information is protected by the Federal Confidentiality of Alcohol and Drug Abuse Patient Records regulations: The Federal rules restrict any use of the information to criminally investigate or prosecute any alcohol or drug abuse patient.[facility] HospitalIn the event this information is protected by the Federal Confidentiality of Alcohol and Drug Abuse Patient Records regulations: The Federal rules restrict any use of the information to criminally investigate or prosecute any alcohol or drug abuse patient.[facility] HospitalIn the event this information is protected by the Federal Confidentiality of Alcohol and Drug Abuse Patient Records regulations: The Federal rules restrict any use of the information to criminally investigate or prosecute any alcohol or drug abuse patient.[facility] HospitalIn the event this information is protected by the Federal Confidentiality of Alcohol and Drug Abuse Patient Records regulations: The Federal rules restrict any use of the information to criminally investigate or prosecute any alcohol or drug abuse patient.[facility] HospitalIn the event this information is protected by the Federal Confidentiality of Alcohol and Drug Abuse Patient Records regulations: The Federal rules restrict any use of the information to criminally investigate or prosecute any alcohol or drug abuse patient.[facility] HospitalIn the event this information is protected by the Federal Confidentiality of Alcohol and Drug Abuse Patient Records regulations: The Federal rules restrict any use of the information to criminally investigate or prosecute any alcohol or drug abuse patient.[facility] HospitalIn the event this information is protected by the Federal Confidentiality of Alcohol and Drug Abuse Patient Records regulations: The Federal rules restrict any use of the information to criminally investigate or prosecute any alcohol or drug abuse patient.[facility] HospitalIn the event this information is protected by the Federal Confidentiality of Alcohol and Drug Abuse Patient Records regulations: The Federal rules restrict any use of the information to criminally investigate or prosecute any alcohol or drug abuse patient.[facility] HospitalIn the event this information is protected by the Federal Confidentiality of Alcohol and Drug Abuse Patient Records regulations: The Federal rules restrict any use of the information to criminally investigate or prosecute any alcohol or drug abuse patient.[facility] HospitalIn the event this information is protected by the Federal Confidentiality of Alcohol and Drug Abuse Patient Records regulations: The Federal rules restrict any use of the information to criminally investigate or prosecute any alcohol or drug abuse patient.[facility] HospitalIn the event this information is protected by the Federal Confidentiality of Alcohol and Drug Abuse Patient Records regulations: The Federal rules restrict any use of the information to criminally investigate or prosecute any alcohol or drug abuse patient.[facility] HospitalIn the event this information is protected by the Federal Confidentiality of Alcohol and Drug Abuse Patient Records regulations: The Federal rules restrict any use of the information to criminally investigate or prosecute any alcohol or drug abuse patient.[facility] HospitalIn the event this information is protected by the Federal Confidentiality of Alcohol and Drug Abuse Patient Records regulations: The Federal rules restrict any use of the information to criminally investigate or prosecute any alcohol or drug abuse patient.[facility] HospitalIn the event this information is protected by the Federal Confidentiality of Alcohol and Drug Abuse Patient Records regulations: The Federal rules restrict any use of the information to criminally investigate or prosecute any alcohol or drug abuse patient.[facility] HospitalIn the event this information is protected by the Federal Confidentiality of Alcohol and Drug Abuse Patient Records regulations: The Federal rules restrict any use of the information to criminally investigate or prosecute any alcohol or drug abuse patient.[facility] HospitalIn the event this information is protected by the Federal Confidentiality of Alcohol and Drug Abuse Patient Records regulations: The Federal rules restrict any use of the information to criminally investigate or prosecute any alcohol or drug abuse patient.[facility] HospitalIn the event this information is protected by the Federal Confidentiality of Alcohol and Drug Abuse Patient Records regulations: The Federal rules restrict any use of the information to criminally investigate or prosecute any alcohol or drug abuse patient.[facility] HospitalIn the event this information is protected by the Federal Confidentiality of Alcohol and Drug Abuse Patient Records regulations: The Federal rules restrict any use of the information to criminally investigate or prosecute any alcohol or drug abuse patient.[facility] HospitalIn the event this information is protected by the Federal Confidentiality of Alcohol and Drug Abuse Patient Records regulations: The Federal rules restrict any use of the information to criminally investigate or prosecute any alcohol or drug abuse patient.[facility] HospitalIn the event this information is protected by the Federal Confidentiality of Alcohol and Drug Abuse Patient Records regulations: The Federal rules restrict any use of the information to criminally investigate or prosecute any alcohol or drug abuse patient.[facility] HospitalIn the event this information is protected by the Federal Confidentiality of Alcohol and Drug Abuse Patient Records regulations: The Federal rules restrict any use of the information to criminally investigate or prosecute any alcohol or drug abuse patient.[facility] HospitalIn the event this information is protected by the Federal Confidentiality of Alcohol and Drug Abuse Patient Records regulations: The Federal rules restrict any use of the information to criminally investigate or prosecute any alcohol or drug abuse patient.[facility] HospitalIn the event this information is protected by the Federal Confidentiality of Alcohol and Drug Abuse Patient Records regulations: The Federal rules restrict any use of the information to criminally investigate or prosecute any alcohol or drug abuse patient.[facility] HospitalIn the event this information is protected by the Federal Confidentiality of Alcohol and Drug Abuse Patient Records regulations: The Federal rules restrict any use of the information to criminally investigate or prosecute any alcohol or drug abuse patient.[facility] HospitalIn the event this information is protected by the Federal Confidentiality of Alcohol and Drug Abuse Patient Records regulations: The Federal rules restrict any use of the information to criminally investigate or prosecute any alcohol or drug abuse patient.[facility] HospitalIn the event this information is protected by the Federal Confidentiality of Alcohol and Drug Abuse Patient Records regulations: The Federal rules restrict any use of the information to criminally investigate or prosecute any alcohol or drug abuse patient.[facility] HospitalIn the event this information is protected by the Federal Confidentiality of Alcohol and Drug Abuse Patient Records regulations: The Federal rules restrict any use of the information to criminally investigate or prosecute any alcohol or drug abuse patient.[facility] HospitalIn the event this information is protected by the Federal Confidentiality of Alcohol and Drug Abuse Patient Records regulations: The Federal rules restrict any use of the information to criminally investigate or prosecute any alcohol or drug abuse patient.[facility] Reason for Visit (unrecogniz ed section and content) Reason Comments No Show Specialty Diagnoses / Procedures Referred By Lucrecia olmstead Referred To Contact Psychiatry / ADULT PSYCHIATRY Diagnoses follow up Procedures VIDEO PSYC/PSYL EST [facility] [address] [place] [address] Phone: tel: Samaria Haji, TECHNICAL SALES ASSOCIATE.[employer] [address] [place] [address] Phone: tel: fax: Referral ID Status Reason Start Date Expiration Date Visits Requested Visits Authorized [id number] Authorized Benefit Check 07/15/2024 07/14/2025 99 99 Reason Comments Appointment Cancelled Reason Onset Date Comments Care 10/06/2021 Specialty Diagnoses / Procedures Referred By Contac t Referred To Contact ENVIRONMENTAL TECHNICIAN Diagnoses 31 weeks gestation of OB-Cramping, Increased pressure Procedures OFFICE/OUTPATIENT ESTABLISHED MOD MDM 30-39 MIN EST [facility] OB Self Erendira Hayes MD [address] [place] [address] Referral ID Status Reason Start Date Expiration Date Visits Re quested Visits Authorized [id number] Closed 10/06/2021 07/14/2022 1 1 Reason Comments US Specialty Diagnoses / Procedures Referred By Contac t Referred To Contact [facility] Diagnoses 30 weeks gestation of Short interval between pregnancies affecting , antepartum Procedures OBSTETRIC ULTRASOUND [facility] US PREG UTERUS AFTER 1ST TRIMEST GESTATION Erendira Hayes MD [address] [facility] [place] [address] [facility] [address] [place] [address] Referral ID Status Reason Start Date Expiration Date V isits Requested Visits Authorized [id number] Closed Auto-Generate d Referral 10/18/2021 07/14/2022 1 1 Reason Comments Patient Update Reason Onset Date Comments Care 10/25/2021 Specialty Diagnoses / Procedures Referred By Contac t Referred To Contact ENVIRONMENTAL TECHNICIAN Diagnoses ob-f/u from Jamal Procedures EST [facility] OB Erendira Hayes MD [address] [place] [address] Erendira Hayes MD [address] [place] [address] Referral ID Status Reason Start Date Expiration Date Visits Re quested Visits Authorized [id number] Closed 10/25/2021 01/23/2022 1 1 Reason Comments Letter Reason Onset Date Comments Care 10/31/2021 Specialty Diagnoses / Procedures Referred By Contac t Referred To Contact ENVIRONMENTAL TECHNICIAN Diagnoses OB Procedures OFFICE/OUTPATIENT ESTABLISHED MOD MDM 30-39 MIN EST [facility] OB Marlee Taylor, TECHNICAL SALES ASSOCIATE.CNM [address] [place] [address] Referral ID Status Reason Start Date Expiration Date Visits Re quested Visits Authorized [id number] Closed 10/31/2021 07/14/2022 1 1 Reason Onset Date Comments Care 11/14/2021 Specialty Diagnoses / Procedures Referred By Contac t Referred To Contact ENVIRONMENTAL TECHNICIAN Diagnoses OB Procedures OFFICE/OUTPATIENT ESTABLISHED MOD MDM 30-39 MIN EST [facility] OB Marlee Taylor, TECHNICAL SALES ASSOCIATE.CNM [address] [place] [address] Reason Comments Ob Delivery Note Reason Comments Routine Specialty Diagnoses / Procedures Referred By Lucrecia t Referred To Contact ENVIRONMENTAL TECHNICIAN Diagnoses False labor before 37 completed weeks of gestation, unspecified trimester post Procedures OFFICE/OUTPATIENT ESTABLISHED MOD MDM 30-39 MIN POST Marlee Taylor, TECHNICAL SALES ASSOCIATE.CNM [address] [place] [address] Referral ID Status Reason Start Date Expiration Date Visits Re quested Visits Authorized [id number] Closed 12/26/2021 07/14/2022 1 1 Reason Comments Refill Request Reason Comments Sinusitis Upper Respiratory Infection Patient stat ed that cough with chest congestion x 1 week. Chest congestion has gotten worse in the last few days. OTC: Tylenol and cough drops. Reason Onset Date Comments [facility] Out[facility] 10/04/2022 Reason Comments [facility] Reason Onset Date Comments [facility] 10/09/2022 Reason Comments Follow Up Specialty Diagnoses / Procedures Referred By Lucrecia t Referred To Contact Psychiatry / ADULT PSYCHIATRY Diagnoses medication management Procedures VIDEO PSYC/PSYL Marlee Nguyen, TECHNICAL SALES ASSOCIATE.CN [address] [place] [address] Samaria Haji, TECHNICAL SALES ASSOCIATE.[facility] [address] [place] [address] Referral ID Status Reason Start Date Expiration Date Visits Requested Visits Authorized [id number] Authorized Benefit Check 07/15/2022 07/14/2023 99 99 Reason Comments Sore Throat Sore throat, symptom s started 3 days ago. Exposed to Strep throat. Has taken Sudafed, last dose 2130, Tylenol yesterday morning. Reason Comments Medication Problem Reason Comments Yearly Exam Reason Comments Appointment Rescheduled Reason Comments Established Patient Follow-Up Reason Comments Wellness Specialty Diagnoses / Procedures Referred By Contac t Referred To Contact Diagnoses Moderate episode of recurrent major depressive disorder (HCC) GUIDO (generalized anxiety disorder) Procedures CONSULT TO HOLISTIC PSYCHOTHERAPY OFFICE/OUTPATIENT [facility] MDM 60 MINUTES Samaria Haji, TECHNICAL SALES ASSOCIATE.[employer] [address] [place] [address] Referral ID Status Reason Start Date Expiration Date V isits Requested Visits Authorized [id number] Closed PCP Requested Referral 07/17/2023 07/16/2024 1 1 Reason Comments LESION, SKIN Reason Comments Irregular Menstrual Cycle Reason Comments Follow Up Depression/anxiety Reason Comments Vaginal Problem Specialty Diagnoses / Procedures Referred By Contac t Referred To Contact Psychiatry / ADULT PSYCHIATRY Diagnoses follow up 3 month Procedures VIDEO PSYC/PSYL EST Samaria Haji, TECHNICAL SALES ASSOCIATE.[employer] [address] [place] [address] Samaria Haji, TECHNICAL SALES ASSOCIATE.[employer] [address] [place] [address] Referral ID Status Reason Start Date Expiration Date Visits Requested Visits Authorized [id number] Authorized Benefit Check 03/13/2024 07/14/2024 99 99 Reason Comments Medication Question Reason Comments Question (OB Question) Reason Comments Vomiting Sx started x 2 weeks with vomiting, diarrhea,cough, chest tightness. Pt is 7 weeks . Tylenol last dose 1400 tody Reason Comments Initial OB Visit Specialty Diagnoses / Procedures Referred By Contac t Referred To Contact [facility] Diagnoses 7 weeks gestation of Procedures OBSTETRIC ULTRASOUND [facility] US PREG UTERUS AFTER 1ST TRIMEST GESTATION Marlee Almanza, TECHNICAL SALES ASSOCIATE.CN [address] [place] [address] Phone: tel: fax: [facility] [address] [place] [address] Referral ID Status Reason Start Date Expiration Date V isits Requested Visits Authorized [id number] Closed Auto-Generate d Referral 09/08/2024 09/08/2025 1 1 Reason Onset Date Comments Care 11/03/2024 Reason Comments Follow Up Specialty Diagnoses / Procedures Referred By Contac t Referred To Contact Psychiatry / ADULT PSYCHIATRY Diagnoses follow up Procedures VIDEO PSYC/PSYL EST [facility] [address] [place] [address] Phone: tel: Samaria Haji, TECHNICAL SALES ASSOCIATE.[employer] [address] [place] [address] Phone: tel: fax: Referral ID Status Reason Start Date Expiration Date Visits Requested Visits Authorized [id number] Authorized Benefit Check 07/15/2024 07/14/2025 99 99 Reason Onset Date Comments Care 12/30/2024 Reason Onset Date Comments Care 01/25/2025 Reason Comments redness left eye Reason Onset Date Comments Care 02/11/2025 Reason Onset Date Comments Care 02/22/2025 Reason Onset Date Comments Care 03/05/2025 Specialty Diagnoses / Procedures Referred By Contac t Referred To Contact [facility] Diagnoses Uterine size-date discrepancy, third trimester (HCC) Procedures OBSTETRIC ULTRASOUND [facility] US PREG UTERUS AFTER 1ST TRIMEST GESTATION Marlee Almanza, TECHNICAL SALES ASSOCIATE.CNM [address] [place] [address] Phone: tel: fax: [facility] [address] [place] [address] Referral ID Status Reason Start Date Expiration Date V isits Requested Visits Authorized [id number] Closed Auto-Generate d Referral 03/05/2025 03/05/2026 1 1 Reason Onset Date Comments [facility] 03/20/2025 Reason Onset Date Comments [facility] 03/23/2025 Goals (unrecognized section and content) Goals may be documented in a n alternate section Care Teams (unrecognized sec tion and content) Team Status: Active Member Role/Relationship Status Dates No Primary Care Physician Primary Care Provider Active Team Status: Inactive Member Role/Relationship Status Dates No Primary Care Physician Primary Care Provider Active Start: March 17, 2025 End: March 17, 2025 Dr. Miriam Ramsey MD Attending Provider Active Start: March End: March 17, 2025 Dr. Miriam Ramsey MD Referring Provider Active Start: March End: March 17, 2025 Litigation Legal Assistant Relationship Specialty Start Date End Date Willa Rogers, DO PCP - General Internal Medicine 10/04/22 Litigation Legal Assistant Relationship Specialty Start Date End Date José Miguel ParisWilla bill Ruma, DO PCP - General Internal Medicine 10/04/22 Litigation Legal Assistant Relationship Specialty Start Date End Date Willa Domingo, DO [address] [place] [address] [address] [place] [address] PCP - General Internal Medicine 10/04/22 Litigation Legal Assistant Relationship Specialty Start Date End Date Willa Domingo DO [address] [place] [address] [address] [place] [address] PCP - General Internal Medicine 10/04/22 Inactive Administered Medications - up to 3 most recent administrations Administered Medications (un recognized section and content) Medication Order MAR Action Action Date Dose Rate Site lidocaine 1%-EPINEPHrine 1:100,000 0.5 mL injection 0.5 mL, OTHER, ONCE, 1 dose, On 09/30/23 at 1600 Given by LIP 09/30/2023 4:13 PM EDT 0.5 mL Other FOR RECORDS PERTAINING TO PATIENTS WHO ARE OR HAVE BEEN ENROLLED IN A CHEMICAL DEPENDENCY/SUBSTANCEABUSE PROGRAM, SOME INFORMATION MAY BE OMITTED. This clinical summary was aggregated from multiple sources. Caution should be exercised in using it in the provision of clinical care. This summary normalizes information from multiple sources, and as a consequence, information in this document may materially change the coding, format and clinical context of patient data. In addition, data may be omitted in some cases. CLINICAL DECISIONS SHOULD BE BASED ON THE PRIMARY CLINICAL RECORDS. [employer] [facility]. provides no warranty or guarantee of the accuracy or completeness of information in this document.
[2025-03-29 00:21] VITALS: BP 149/83; PULSE 82; RESP 16; TEMP 36.7; O2SAT 99
[2025-03-29 00:43] VITALS: BP 125/75; PULSE 72
[2025-03-29] MEDS: LACTATED RINGERS 500 ML 999 ML IV (01:36)
[2025-03-29 01:41] LABS: Hematocrit 29.3 % (37-47); Hemoglobin 9.7 g/dL (12.0-15.0); Immature Granulocytes Count 0.050 X10^3/uL (0.0-0.0); Mean Corp Hgb Conc 33.1 g/dL (32-36); Mean Corpuscular Volume 84.2 fL (81-99); Mean Platelet Vol. 11.3 fl (6.2-12.0); NRBC Flagged by Analyzer 0 % (0-5); Platelet Count 283 K/mm3 (150-450); RBC Distribution Width CV 12.9 % (11.6-14.6); RBC Distribution Width SD 38.7 fl (35.1-43.9); Red Blood Count 3.48 M/mm3 (4.2-5.4); White Blood Count 9.5 K/mm3 (4.4-11.0)
[2025-03-29 01:53] LABS: Prothrombin Time (Protime)PT. 12.9 SECONDS (11.7-14.9)
[2025-03-29 01:54] LABS: Partial Thromboplast Time 31.1 Seconds (24.1-36.2)
[2025-03-29] MEDS: Lactated Ringers 1,000 ML 200 ML IV (02:11)
[2025-03-29 02:37] LABS: Syphilis Antibodies Nonreactive (Nonreactive)
[2025-03-29 02:51] VITALS: RESP 16; TEMP 36.8
[2025-03-29 02:52] VITALS: BP 111/62; PULSE 66
--- NOTE | 2025-03-29 05:16 | OB.TRI.HP_ITS ---
HPI - General HPI Narrative VALE VARGAS, is a 34 F at 36.4 weeks gestation who presents to triage with contractions that started yesterday. Denies any loss of fluid but had vaginal spotting since last night. PFSH PFSH Medical History (Updated 03/29/25 @ 05:27 by Aby Donovan CNM) Genital herpes affecting Home Medications ?Medication ?Instructions ?Recorded ?Last Taken ?Type 1 tab PO/SL DAILY Check with 12/27/20 03/28/25 18:00 History primary doctor sertraline 100 mg tablet (Zoloft) 100 mg PO DAILY [facility] [facility] with primary 12/27/20 03/28/25 18:00 History doctor 100 mg acyclovir 400 mg tablet 400 mg PO TID Check with [facility] 11/07/21 03/28/25 18:00 History doctor 400 mg ferrous sulfate 325 mg (65 mg 325 mg PO QDAY 03/17/25 03/26/25 18:00 History iron) tablet (Feosol) 325 mg omeprazole 20 mg capsule,delayed 20 mg PO DAILY 03/28/25 18:00 History release 20 mg Allergy/AdvReac Type Severity Reaction Status Date / Time tree nut Allergy Hives Verified 03/29/25 00:31 Family History Sister Family history of defect Surgical History History of surgery Social History adopted: Yes Smoking Status: Never smoker History Elective abortions Hx Para 2 Spontaneous abortions Hx # Term Pregnancies Ectopic pregnancies Hx # Pregnancies Multiple births # of living children ROS Eyes Eyes: Denies blurry vision Cardiovascular Cardiovascular: Reports none; Denies chest pain at rest, chest pain with activity or dizziness Respiratory/Chest Respiratory/Chest: Denies cough or dyspnea Gastrointestinal Gastrointestinal: Reports none and other; Denies diarrhea or vomiting Genitourinary Genitourinary: Denies dysuria Musculoskeletal Musculoskeletal: Reports none Integumentary Integumentary: Reports none; Denies rash Neurologic Neurologic: Denies dizziness, headache(s) or other visual disturbances Psychiatric Psychiatric: Reports none Physical Exam Const alert and no apparent distress General Appearance: cooperative Orientation / Consciousness: awake Exam Limitations: no limitations HEENT normocephalic Eyes General Eye: normal appearance of both eyes Neck full ROM Chest inspection of chest normal Resp normal respiratory effort and normal air movement Effort and Inspection: symmetric chest movement Auscultation: clear to auscultation bilaterally Cardio regular rate GI soft to palpation, non-tender and non-distended Inspection: and other Back/Spine normal ROM Extremity full ROM, normal capillary refill and no calf tenderness Skin no rashes or lesions noted Neuro oriented x3 and CN's II-XII intact bilaterally Psych mental status grossly normal NST FHR Rate Baby A Baseline: 125 Variability:: Moderate Accelerations:: 15 x 15 Decelerations:: None NST Reactive:: Yes FHR Category:: Category I Uterine Activity:: 2-7 minutes and palpate mild and relaxed in between Assessment & Plan (1) contractions: (2) Iron deficiency anemia: (3) History of OCD (obsessive compulsive disorder): (4) HSV-2 seropositive: (5) 36 weeks gestation of : (6) Depression: (7) Genital HSV: (8) Anxiety: (9) Spotting complicating in third trimester: PLAN: Plan CE 2.5/60/-3 Small amount of blood noted with exam IV started and fluid bolus given Extended monitoring - NST reactive Patient desires to be rechecked and if unchanged - desires discharge Dr. Gr notified of A&P and is collaborating physician
[2025-03-29 07:24] VITALS: BP 105/59; PULSE 68; RESP 16; TEMP 36.5; O2SAT 98
[2025-03-29 07:25] VITALS: PULSE 64; O2SAT 99
[2025-03-29 09:10] LABS: Mucous, Urine 0 SEEN /hpf (<or=2+); Red Blood Cells-Urine 0 SEEN /hpf (0-5)
[2025-03-29 09:32] LABS: Glucose, Dipstick Normal (Normal); Ketone-Dipstick Negative (Negative); Leukocyte Esterase-Dipstick Negative /ul (Negative); Nitrite-Dipstick Negative (Negative); Occult Blood-Urine 50 /ul (Negative); Protein-Dipstick Negative (Negative); Specific Gravity, Urine 1.010 (1.002-1.030); Urine Bilirubin Dipstick Negative (Negative)
[2025-03-29 09:33] LABS: Color, Urine Yellow (Yellow)
[2025-03-29 09:35] LABS: Squamous Epithelial Cells - UA 0-5 SEEN /hpf (5-10)
--- NOTE | 2025-03-29 18:22 | PCM.PN.BLA ---
Progress Note ctx's remain irregular brown spotting Assessment & Plan Assessment/Plan (1) 36 weeks gestation of : (2) Spotting complicating in third trimester: PLAN: Plan no cervical change patient comfortable going home has appointment in office tomorrow PTL precautions reviewed
== END 2025-03-29 09:05 | disposition home or self-care (01) ==
LOC: WPOUT 00:11 → WP 00:12
PROVIDERS: Obstetrics & Gynecology; Referring Provider Advanced Practice Midwife; Visit Provider Advanced Practice Midwife
DX: O26.853 Spotting complicating pregnancy, third trimester (principal); Z3A.36 36 weeks gestation of pregnancy; O98.313 Other infections with a predominantly sexual mode of transmission complicating pregnancy, third trimester; A60.00 Herpesviral infection of urogenital system, unspecified; O99.013 Anemia complicating pregnancy, third trimester; D50.9 Iron deficiency anemia, unspecified; O99.343 Other mental disorders complicating pregnancy, third trimester; F32.A Depression, unspecified; F41.9 Anxiety disorder, unspecified
CPT/HCPCS: 96360; 96361; 36415; 59025; 59050; 81001; 85025; 85610; 85730; 86780; 86850; 86900; 86901; 87081; 87086; 87653; 99221; G0378

== ENCOUNTER 2025-04-03 01:55 | Inpatient (IN) | payer OTHER, MEDICAID, SELFPAY ==
[2025-04-02 22:28] VITALS: BP 129/72; PULSE 70; RESP 16; TEMP 36.6; O2SAT 100
--- OUTSIDE RECORDS SUMMARY | 2025-04-02 22:28 | XMS RPT_ITS | CCD ---
Author Organization [facility] Care Team Providers Care Chemist Intern Name Role Phone PHYSICIAN, NONE Primary Care Physician Unavailab le Unavailable Primary Care Provider Unavailabl e Unavailable Primary Care Provider Unavailbrendan SUÁREZ MD., DR. CAMACHO Attending Unavailabl e PHYSICIAN, NONE Primary Care Unavailable JOSE ARMANDO WALKER, DR. CAMACHO Admitting Unavailbrendan CASON MD, TANYA Alexander Consulting Unavailable LOUISE BENITEZ, KIARA Consulting Unavailable RAMIREZ BENITEZ, RODOLFO Salcedo Consulting Unavailab kaitlin NARAYANAN MD, WILLA Harmon Consulting Unavailable GLENN ZAVALA MD Attending Unavailable PHYSICIAN, NONE Primary Care Unavailable SUE VELEZ, DR. WILLA Hendrix Attending Satya ROGERS DO, DR. WILLA Hendrix Primary Care Satya ROGERS DO, DR. WILLA Hendrix Attending Satya ROGERS DO, DR. WILLA Hendrix Primary Care Naomievai leda Pérez Primary Care Provider Unavailbrendan e Willa Domingo DO Primary Care Provider [phone] RAQUEL VALERO Attending Unavailab le Willa Domingo DO Primary Care Provider [phone] Willa Domingo DO Primary Care Provider Willa Domingo DO Primary Care Provider [phone] Willa Rogers DO Primary Care Provider [phone] SHERITA MADDOX Admitting Unavailable SHERITA MADDOX Attending Unavailable WILLA ROGERS Primary Care Unavailable MARLEE ALMANZA Referring Unavailable WILLA ROGERS Primary Care Unavailable WILLA ROGERS Primary Care Unavailable DENISE REICH Admitting Unavailable SUE, WILLA M Primary Care Unavailable DENISE REICH Attending Unavailable ARIANNA BYNUM Attending Unavailable SUE, WILLA M Primary Care Unavailable SELF Referring Unavailable Sue Willa VELEZ M Primary Care Provider Unav ailable SUE, WILLA M Primary Care Unavailable GEO TAYLOR Admitting Unavailable GEO TAYLOR Attending Unavailable MARLEE ALMANZA Referring Unavailable SUE, WILLA M Primary Care Unavailable Care Physician, No Primary Primary Care Provider Unavailable Roxy BENITEZ, Dr. Pineda Attending Provid er Dr. Miriam Ramsey MD Referring Provid er Aby Donovan CNM Attending Provider Aby Donovan CNM Referring Provider SAMARIA HAJI Referring Unavailable SAMARIA HAJI Attending Unavailable SUE, WILLA M Primary Care Unavailable SAMARIA HAJI Attending Unavailable SAMARIA HAJI Referring Unavailable SUE, WILLA M Primary Care Unavailable MARLEE ALMANZA Attending Unavailable SUE, WILLA M Primary Care Unavailable SAMARIA HAJI Attending Unavailable SAMARIA HAJI Referring Unavailable SUE, WILLA M Primary Care Unavailable MARLEE ALMANZA Referring Unavailable SUE, WILLA M Primary Care Unavailable MARLEE ALMANZA Attending Unavailable MARLEE ALMANZA Referring Unavailable SUE, WILLA M Primary Care Unavailable MARLEE ALMANZA Attending Unavailable SUE, WILLA M Primary Care Unavailable MARLEE ALMANZA Referring Unavailable SUE, WILLA M Primary Care Unavailable MARLEE ALMANZA Attending Unavailable SUE, WILLA M Primary Care Unavailable MARLEE ALMANZA Referring Unavailable SUE, WILLA M Primary Care Unavailable MARLEE ALMANZA Attending Unavailable SUE, WILLA M Primary Care Unavailable SUE, WILLA M Primary Care Unavailable MARLEE ALMANZA Attending Unavailable SAMARIA HAJI Referring Unavailable SUE, WILLA M Primary Care Unavailable SAMARIA AHJI Attending Unavailable MARLEE ALMANZA Attending Unavailable SUE, WILLA M Primary Care Unavailable SAMARIA HAJI Attending Unavailable SUE, WILLA M Primary Care Unavailable MARLEE ALMANZA Referring Unavailable SUE, WILLA M Primary Care Unavailable MARLEE ALMANZA Attending Unavailable SUE, WILLA M Primary Care Unavailable MARLEE ALMANZA Attending Unavailable WILLA ROGERS Primary Care Unavailable SELAM LOUISE Attending Unavailable WILLA ROGERS Primary Care Unavailable MARLEE ALMANZA Attending Unavailable WILLA ROGERS Primary Care Unavailable MARLEE ALMANZA Referring Unavailable WILLA ROGERS Primary Care Unavailable Care Physician, No Primary Primary Care Unava ilable Miriam Ramsey Attending Unavail able Miriam Ramsey Referring Unavail able Care Physician, No Primary Primary Care Unava ilable Aby Donovan Attending Unavailable Aby Donovan Referring Unavailable Allergies Allergy Classification Reported Allergen(s) Allergy Type Date of Onset Reaction(s) Facility (2 sources) Nuts (not including peanuts) Food allergy [facility] (20 sources) tree nut, unspecified; Translations: [TREE NUTS] Drug Allergy 05-19-[address] [facility] Work Phone: (5 sources) tree nut, unspecified; Translations: [tree nut] Allergy to substance 12-27-2020 [facility] Repository Medications Current Medications Medication Drug Class(es) Dates Sig (Normalized) Sig (Original) acyclovir 400 mg oral tablet (20 sources) Herpesvirus Nucleoside Analog DNA Polymerase Inhibitor, [...] tablet by david th three times daily. aspirin 81 mg delayed release oral tablet (20 sources) Platelet Aggregation Inhibitor, Nonsteroidal Anti-inflammatory Drug Start: 09-08-2024 take 1 tablet by mouth once daily aspirin, enteric coated (ECOTRIN LOW STRENGTH) 81 mg EC tablet Indications: 7 weeks gestation of (HCC) Take 1 tablet by mouth once daily. 90 tablet 3 09/08/2024 Active Start: 11-07-2021 End: 11-17-2021 take 1 capsule by mouth once daily Aspirin 81 mg Capsule Discontinued 81 mg PO DAILY November 07, 2021 12:00am November 17, 2021 5:56am Start: 09-18-2021 End: [...] (3 sources) Non-narcotic Antitussive Start: 3 End: 3 take 1 capsule by mouth three times [...] on above: Take 2 capsules by m outh three times daily as needed. Take 1 capsule by mo uth three times daily as needed for cough for up to 5 days. 24 hr desvenlafaxine succinate 25 mg extended release oral tablet (2 sources) Serotonin and Norepinephrine Reuptake Inhibitor Start: 023 End: 023 take 1 tablet by mouth [...] days. ferrous sulfate 325 mg oral tablet (12 sources) Start: 2 take 1 tablet by mouth once daily Ferrous Sulfate (Feosol) 325 mg (65 mg iron) tablet Active 325 mg PO daily March 17, 2025 12:00am fluconazole 150 mg oral tablet (5 sources) Azole Antifungal Start: 4 End: take 1 tablet by mouth once [...] Comment on above: Take one tablet by m out once. Then repeat every 3 days for 3 doses. Take 1 tablet by david one time only for 1 dose. hydrOXYzine [...] Take 1 tablet by david three times daily as needed for itching/rash [...] omeprazole 20 mg delayed release oral capsule (8 sources) Proton Pump Inhibitor Start: 03-17-20 take 1 capsule by mouth once daily Omeprazole 20 mg capsule,delayed release(DR/EC) Active 20 mg PO DAILY March 17, 2025 12:00am Start: 02-22-2025 take 1 capsule by mo [facility] once daily in the evening omeprazole [...] david th twice daily for 5 days. (6 sources) Start: take 1 tablet by mouth once daily Active 1 TABLET SL/PO DAILY December 27, 2020 3:06pm Start: 12-27-2020 Activ e 1 {tbl} SL/PO DAILY December 27, 2020 12:00am Check with primary doctor Multivitamins with Vitamin B Complex, Vitamin C, Minerals and L-Methylfolate oral capsule (2 sources) Start: 05-13-2021 take 1 capsule by mouth once daily Multivitamins with Vitamin B Complex, Vitamin C, Minerals and L-Methylfolate oral capsule Dose = 1 cap(s), Oral, Daily, 0 Refill(s) Start Date: 11/24/20 Status: Ordered vit no.124/iron/folic ( VITAMIN ORAL) (13 sources) vit no.124/iron/folic ( VITAMIN ORAL) Take by mouth. Active [id number] 28 mg-800 mcg- 200 mg cap (16 sources) Start: 11-03-2024 take 1 capsule by mouth once daily [id number] a 28 mg-800 mcg- 200 mg cap Take 1 capsule by mouth once daily. 30 capsule 11 11/03/2024 Active sertraline 100 mg oral tablet (20 sources) Serotonin Reuptake Inhibitor Start: 12-27-2020 End: 02-11-2025 take 1 tablet by mouth in the morning, then take 0.5 tablet by mouth once daily sertraline (ZOLOFT) 100 mg tablet Take 1 and 1/2 tablets by mouth once daily. 135 tablet 11/13/2024 8:01 AM EDT 11/12/2024 Active Start: 11-24-2020 Zoloft 100, Or al, qDay, 0 Refill(s) Start Date: 11/24/20 Status: Ordered Comment on above: [facility] Take 1 and 1/2 table [...] on above: Take 1 capsule by mo [facility] daily with food for 14 days, THEN 2 capsules daily with food. Take 1 capsule by mo ut once daily. Completed/Discontinued Medications Medication Drug Class(es) [...] on above: Take 1 tablet by david every 6 hours as needed for pain [...] Comment on above: Take 10.9 mL by moak h twice daily. 12 hr buPROPion hydrochloride [...] Agonist, Catecholamine, Amide Local Anesthetic Start: 09-30-19 24 End: 09-30-19 24 lidocaine 1%-EPINEPHrine 1:100,000 0.5 mL injection famotidine 40 mg oral tablet (20 sources) Histamine-2 Receptor Antagonist Start: 12-31-19 End: 03-31-20 take 1 tablet by mouth once daily famotidine (PEPCID) 40 mg tablet Indications: 23 weeks gestation of ([facility]) , Supervision of high risk in second trimester ([facility]) , Heartburn Take 1 tablet by mouth once daily. 90 tablet 1 12/31/2024 4:54 PM EDT 12/30/2024 02/22/2025 Discontinued (Course of therapy completed) Start: 12-27-2020 End: 12-26-2021 take 1 tablet by mouth once daily Famotidine (Pepcid) 40 mg Tablet Discontinued 40 mg PO DAILY December 27, 2020 12:00am November 17, 2021 5:56am heartburn Comment on above: Take 1 tablet by david once daily. FLUoxetine 40 mg oral capsule (6 sources) Serotonin Reuptake Inhibitor Start: End: take 1 capsule by mouth once [...] on above: Take 1 capsule by mo [facility] once daily. methylPREDNISolone 4 mg oral [...] on above: Take 1 tablet by david four times daily. Vitamin with 29 mg [...] Start: 06-07-2021 take 1 tablet by david once daily Vitamin with 29 mg Iron [...] ophthalmic solution (2 sources) Local Anesthetic Start: End: proparacaine 0.5 % 1 drop (ALCAINE) Pseudoephedrine (7 sources) alpha-Adrenergic Agonist pseudoe phedrine HCl (SUDAFED ORAL) Take by mouth. 0 Active Comment on above: Take by mouth. tropicamide 10 mg/ml ophthalmic solution (2 sources) Anticholinergic Start: End: tropicamide 1 % 1 drop (MYDRIACYL) [...] contraceptive pills] Episodic Deficiency and other anemia (4 sources) Iron deficiency anemia; Translations: [Iron deficiency anemia, unspecified] 11-16-2021 Episodic Deficiency and other anemia (2 sources) Iron deficiency anemia, unspecified; Translations: [Iron deficiency anemia, unspecified] Onset: 03-29-2025 Episodic E Codes: Adverse effects of medical drugs (1 source) Adverse reaction to drug; Translations: [Adverse effect of unspecified drugs, medicaments and biological substances, initial encounter] 05-04-2024 Episodic Early or threatened labor (20 sources) Premature uterine contraction; Translations: [False labor before 37 completed weeks of gestation, unspecified trimester] Onset: 11-28-2020 Resolved: 12-26-2021 10-06-2021 Episodic Immunizations and screening for infectious disease (20 sources) Herpes simplex type 2 infection; Translations: [Other specified abnormal immunological findings in serum] Onset: 05-19-2020 05-08-2021 Episodic Inflammation; infection of eye (except that caused by tuberculosis or sexually transmitteddisease) (1 source) Acute infectious conjunctivitis; Translations: [Unspecified acute conjunctivitis, bilateral] Episodic Menstrual disorders (1 source) Missed period; Translations: [Irregular menstruation, unspecified] 12-18-2023 Chronic Mood disorders (12 sources) Depressive disorder; Translations: [Depression] Chronic Mood disorders (2 sources) Mood disorders; Translations: [Anxiety and depression] Onset: 09-08-2024 Neoplasms of unspecified nature or uncertain behavior (1 source) Neoplastic disease; Translations: [Neoplasm of unspecified behavior of bone, soft tissue, and skin] 09-30-2023 Episodic Other aftercare (3 sources) Long-term current use of drug therapy; Translations: [Other alf (current) drug therapy] 05-04-2024 Episodic Other complications of ; puerperium affecting management of mother (6 sources) Trauma to perineum and/or vulva during [...] Resolved: 03-05-2025 04-13-2021 Episodic Other complications of (6 sources) Depressive disorder in mother complicating ; Translations: [Other mental disorders complicating , unspecified trimester] 12-27-2020 Episodic Other complications of (4 sources) Reduced movement; Translations: [Decreased movements, unspecified [...] trimester; Translations: [Uterine size-date discrepancy, third trimester ([facility])] Onset: 03-16-2025 Episodic Other complications of (2 sources) Spotting per vagina in ; Translations: [Spotting complicating , third trimester] 03-29-2025 Episodic Other complications of (1 source) Other specified related conditions, third trimester; Translations: [Heartburn during in third trimester ([facility])] Onset: 02-22-2025 Episodic Other complications of (1 source) Supervision of high risk , unspecified, third trimester; Translations: [Supervision of high risk in third trimester ([facility])] Onset: 03-30-2025 Episodic Other complications of (1 source) Supervision of other high risk pregnancies, third trimester; Translations: [Supervision of other high risk pregnancies, third trimester ([facility])] Onset: 03-05-2025 Episodic Other complications of (1 source) Supervision of high risk , unspecified, second trimester; Translations: [Supervision of high risk in second trimester ([facility])] Onset: 01-25-2025 Episodic Other complications of (1 source) Spotting complicating , third trimester; Translations: [Spotting complicating , third trimester] Onset: 03-29-2025 Episodic Other eye disorders (3 sources) Hemophthalmos, [...] disorders of vagina] Episodic Other gastrointestinal disorders (11 sources) Heartburn; Translations: [Heartburn] Onset: 02-22-2025 12-30-2024 [...] Polyhydramnios and other problems of amniotic cavity (2 sources) Spontaneous rupture of membranes 12-27-2020 Episodic Residual codes; unclassified (8 sources) 31 weeks gestation of ; Translations: [ state, incidental] Onset: 02-18-2025 Episodic Residual codes; unclassified (1 source) Gestation period, 32 weeks; Translations: [32 weeks gestation of ] Episodic Residual codes; unclassified (2 sources) Gestation period, 33 weeks; Translations: [33 weeks gestation of ] Episodic Residual codes; unclassified (5 sources) Gestation period, 34 weeks; Translations: [34 weeks gestation of ] Episodic Residual codes; unclassified (3 sources) Gestation period, 36 weeks; Translations: [36 weeks gestation of ] Episodic Residual codes; unclassified (3 sources) Gestation period, 35 weeks; Translations: [35 weeks gestation of ] 11-09-2021 Episodic Residual codes; unclassified (3 sources) Gestation period, 37 weeks; Translations: [37 [...] (HCC)] Onset: 02-18-2025 Episodic Residual codes; unclassified (2 sources) 36 weeks gestation of ; Translations: [36 weeks gestation of (HCC)] Onset: 03-29-2025 Episodic Residual codes; unclassified (1 source) 33 [...] weeks gestation of (HCC)] Onset: 01-25-2025 Episodic Screening and history of mental health and substance abuse codes (20 sources) H/O: anxiety state; Translations: [Personal history of other mental and behavioral disorders] Onset: 05-19-2020 Resolved: 11-03-2024 04-13-2021 Episodic Unclassified (6 sources) Normal labor; Translations: [...] use of drug therapy 11-12-2024 Viral infection (8 sources) Genital herpes simplex; Translations: [Herpesviral infection of urogenital system, unspecified] Onset: 03-29-2025 12-27-2020 Chronic Past or Other Problems Problem Classification Problem Date Documented Date Episodic/Chronic Cancer of cervix (20 sources) Atypical squamous cells of undetermined significance on cervical Papanicolaou smear; Translations: [Atypical squamous cells of undetermined significance on cytologic smear of cervix (ASC-US)] Onset: 02-17-2021 02-17-2021 Episodic Conditions associated with dizziness or vertigo (2 sources) Dizziness; Translations: [Dizziness and giddiness] Onset: 09-01-2024 09-01-2024 Episodic Influenza (1 source) Influenza due to [...] risk pregnancies, unspecified trimester] Onset: 04-13-2021 Resolved: 12-26-2021 Episodic Other complications of (20 sources) Disease [...] Resolved: 02-17-2021 09-18-2021 Episodic Residual codes; unclassified (16 sources) Gestation period, 31 weeks; Translations: [31 [...] Translations: [History of depression] Onset: 09-08-2024 Episodic Viral infection (20 sources) Viral disease; Translations: [Viral infection, unspecified] Onset: 09-01-2024 09-01-2024 Episodic Results Test Name Value Interpretation Reference Range Facility [facility] 04-01-2025 CNPN Telephone (OBGYWM) -------- MARZENA PICKERING ([id number]) 1990 [employer] Date Time Provider Department 04/01/25 OLE SIMMONS OBGYWM During your visit today, we recorded the following information about you: Sandra Nunez RN 04/01/2025 4:01 PM Signed 37w0d Pt calls stating she went to [facility] [place] AND bright red bleeding on 03/29/25. Cervix checked. 0 to 2.5cm. On 09/27/24 in office was 3-3.5cm. States this morning, noted brightish bleeding small amount of pieces off and on when wiping/not every time she wipes. Stated it kind of looked like small clots, but states it is hard to describe as it had previously been mucousy. Pt will send picture through Evomail of description of bleeding. Informed Pt that the bleeding is likely due to recent cervical checks/ cervical change/ body nearing labor. Not constant contractions, feeling pressure down towards buttocks-started this AM around 10am-was on and off and becoming for constant. Denies LOF, abdominal pain. Highly encouraged Pt to pay close attention to the pressure in buttocks and if continues to increase-to go to Labor and delivery as well as if she begins with abdominal pain/increase in bleeding/LOF. Pt states having not paid close attention to movement today, but states she did notice at 6am this morning she didn't feel as much as she normally does, so she drank a V8 energy drink and did feel movement. Has been active and hasn't paid much attention, but states she will. Reviewed kick counts with patient and advised her to call office if she is not getting 6-10 movements in an hr or go to [facility]. Pt mentions she delivered past 2 babies at 37 weeks, with last one making it to hospital with 6 minutes to space before delivering. Pt lives 30 [place] from hospital-again encouraged Pt to pay attention to her body and if noticing increased pressure to go to hospital. Pt voiced understanding. See Evomail message Pt sent with picture attached. Sandra Nunez, Ole Ramachandran MD 04/01/2025 4:32 PM Signed noted. Ole Simmons MD Allergies As of Date: 04/01/2025 Noted Allergy Reaction TREE NUTS 05/19/2020 4 - Hives Comments: Occasionally gets hives when she eats cashews and almonds Date Reviewed: 03/30/2025 Reviewed by: Qian Nichols MA - Fully Assessed Reason for Visit: Patient Question [9047] Prescriptions as of 04/01/2025 - omeprazole (PRILOSEC) 40 mg capsule Take 1 capsule by mouth once daily. - acyclovir (ZOVIRAX) 400 mg tablet Take 1 tablet by mouth three times a day. - ferrous sulfate (IRON, FERROUS SULFATE,) 325 mg (65 mg iron) tablet Take 325 mg by mouth. - sertraline (ZOLOFT) 100 mg tablet Take 1 and 1/2 tablets by mouth once daily. - [id number] 28 mg-800 mcg- 200 mg cap Take [...] once daily. Problem List As Of Date 04/01/2025 Noted Resolved COVID-19 affecting in first trimester*05/19/2020 [...] high risk pregnancies, thi*03/05/2025 Encounter Status:Closed by OLE SIMMONS on 04/01/25 Normal [facility] Rule out Beta Strep (Grp. B) on 04-01-2025 DEVON Group B Beta Streptococcus is not isolated. Normal [facility] Comment on above: Performed By: #### M 100.3400 #### [facility] [address] [place], [place], [address] ROUTINE, GROUP B ST REPTOCOCCUS BY PCRon 03-30-2025 ROUTINE, GROUP B STREPTOCOCCUS BY PCR Not detected Normal [facility] Comment on above: Performed By: #### G BPCR ####[facility] [id number] [address] OF [facility] Urine Cultureon 03-30-2025 URC Culture exhibits no growth. Normal [facility] Comment on above: Performed By: #### M 100.2200, L400.0001 ####[facility] [address] [place], [place], [address] Absolute lymphocyte countOrd ered By: Aby Donovan on 03-29-2025 Lymphocytes Auto (Unsp spec) [#/Vol] 2.07 10*3/uL 0.83-4.51 [facility] Absolute neutrophil countOrd ered By: Aby Donovan on 03-29-2025 Neutrophils (Bld) [#/Vol] 6.8 10*3/uL 2.0-7.7 [facility] Activated partial thrombopla stin time (aPTT) in platelet poor plasma by coagulation aOrdered By: Aby Donovan on 03-29-2025 aPTT Coag (PPP) [Time] 31.1 s 24.1-36.2 [facility] Automated lymphocyte count a s percentage of total leukocytesOrdered By: Aby Donovan on 03-29-2025 Lymphocytes/100 WBC Auto (Unsp spec) 21.7 % 19-41 [facility] Basophil percentageOrdered B y: Aby Donovan on 03-29-2025 Basophils/100 WBC (Bld) 0.2 % 0-1 [facility] Bilirubin Test strip Ql (U)O rdered By: Erendirafaustino Hayes on 03-29-2025 Bilirubin Ql (U) Negative Negative [facility] CBC W/Diff, Automatedon 03-15 Absolute Lymph 2.07 X10 3/uL Normal 0.83-4.51 [facility] Comment on above: Performed By: #### L 100.0100 #### [facility] [address] [place], [address] Absolute Neut 6.8 X10 3/uL Normal 2.0-7.7 [facility] Comment on above: Performed By: #### L 100.0100 #### [facility] [address] [place], [address] Basophils/100 WBC (Bld) 0.2 % Normal 0-1 [facility] Comment on above: Performed By: #### L 100.0100 #### [facility] [address] [place], [address] Eosinophils/100 WBC (Bld) 1.0 % Normal 0-5 [facility] Comment on above: Performed By: #### L 100.0100 #### [facility] [address] [place], [address] Erythrocyte distribution width (RBC) [Ratio] 12.9 % Normal 11.6-14.6 [facility] Comment on above: Performed By: #### L 100.0100 #### [facility] [address] [place], [address] Hematocrit (Bld) [Volume fraction] 29.3 % Low 37-47 [facility] Comment on above: Performed By: #### L 100.0100 #### [facility] [address] [place], [address] Hemoglobin (Bld) [Mass/Vol] 9.7 g/dL Low 12.0-15.0 [facility] Comment on above: Performed By: #### L 100.0100 #### [facility] [address] [place], [id number] IG% 0.500 Normal 0.0-0.9 [facility] Comment on above: Result Comment: IG% - Immature Granulocytes (promyelocytes, myelocytes and metamyelocytes) > 1% indicates that a LEFT SHIFT is Present. Performed By: #### L 100.0100 #### [facility] [address] [place], [id number] Lymphocytes/100 WBC (Bld) 21.7 % Normal 19-41 [facility] Comment on above: Performed By: #### L 100.0100 #### [facility] [address] [place], [address] MCH (RBC) [Entitic mass] 27.9 pg Normal 27.0-32.0 [facility] Comment on above: Performed By: #### L 100.0100 #### [facility] [address] [place], [address] MCHC (RBC) [Mass/Vol] 33.1 g/dL Normal 32-36 [facility] Comment on above: Performed By: #### L 100.0100 #### [facility] [address] [place], [address] MCV (RBC) [Entitic vol] 84.2 fL Normal 81-99 [facility] Comment on above: Performed By: #### L 100.0100 #### [facility] [address] [place], [address] Monocytes/100 WBC (Bld) 4.8 % Normal 0-10 [facility] Comment on above: Performed By: #### L 100.0100 #### [facility] [address] [place], [address] Neutrophils/100 WBC (Bld) 71.8 % High 47-70 [facility] Comment on above: Performed By: #### L 100.0100 #### [facility] [address] [place], [address] Nucleated RBC (Bld) [#/Vol] 0 10*3/uL Normal 0-5 [facility] Comment on above: Performed By: #### L 100.0100 #### [facility] [address] [place], [address] Platelet mean volume (Bld) [Entitic vol] 11.3 fL Normal 6.2-12.0 [facility] Comment on above: Performed By: #### L 100.0100 #### [facility] [address] [place], [address] Platelets (Bld) [#/Vol] 283 10*3/uL Normal 150-450 [facility] Comment on above: Performed By: #### L 100.0100 #### [facility] [address] [place], [address] RBC (Bld) [#/Vol] 3.48 10*6/uL Low 4.2-5.4 [facility] Comment on above: Performed By: #### L 100.0100 #### [facility] [address] [place], [address] RDW SD 38.7 fl Normal 35.1-43.9 [facility] Comment on above: Performed By: #### L 100.0100 #### [facility] [address] [place], [address] WBC (Bld) [#/Vol] 9.5 10*3/uL Normal 4.4-11.0 [facility] Comment on above: Performed By: #### L 100.0100 #### [facility] [address] [place], [address] Eosinophil percentageOrdered By: Aby Venus on 03-29-2025 Eosinophils/100 WBC (Bld) 1.0 % 0-5 [facility] Erythrocyte distribution wid th ratioOrdered By: Aby Venus on 03-29-2025 Erythrocyte distribution width (RBC) [Ratio] 12.9 % 11.6-14.6 [facility] Erythrocyte distribution wid th standard deviationOrdered By: Abyharrison Donovan on 03-29-2025 Erythrocyte distribution width (RBC) [Ratio] 38.7 fl 35.1-43.9 [facility] Hematocrit Auto (Bld) [Volum e fraction]Ordered By: Abyharrison Donovan on 03-29-2025 Hematocrit (Bld) [Volume fraction] 29.3 % Low 37-47 [facility] Hemoglobin measurementOrdere d By: Abyharrison Donovan on 03-29-2025 Hemoglobin (Bld) [Mass/Vol] 9.7 g/dL Low 12.0-15.0 [facility] Immature granulocytes/100 WB C Auto (Bld)Ordered By: Abyharrison Donovan on 03-29-2025 Immature granulocytes/100 WBC (Bld) 0.500 % 0.0-0.9 [facility] Comment on above: IG% - Immature Granu locytes (promyelocytes, myelocytes and metamyelocytes) > 1% indicates that a LEFT SHIFT is Present. International normalized rat io (INR) calculationOrdered By: Abyharrison Donovan on 03-29-2025 INR Coag (Bld) [Relative time] 1.0 {INR} [facility] Ketones Test strip Ql (U)Ord ered By: Erendira Hayes on 03-29-2025 Ketones Ql (U) Negative Negative [facility] M8200.0100on 03-29-2025 M8200.0100 Negative Normal [facility] Comment on above: Performed By: #### M 8200.0100 #### [facility] [address] [place], [address] MCV (mean corpuscular volume ) determinationOrdered By: Aby Donovan on 03-29-2025 MCV (RBC) [Entitic vol] 84.2 fL 81-99 [facility] Mean corpuscular hemoglobin (MCH) determinationOrdered By: Aby Donovan on 03-29-2025 MCH (RBC) [Entitic mass] 27.9 pg 27.0-32.0 [facility] Mean corpuscular hemoglobin concentration (MCHC) determinationOrdered By: Aby Donovan on 03-29-2025 MCHC (RBC) [Mass/Vol] 33.1 g/dL 32-36 [facility] Mean platelet volume determi nationOrdered By: Aby Donovan on 03-29-2025 Platelet mean volume (Bld) [Entitic vol] 11.3 fL 6.2-12.0 [facility] Microscopic analysis of urin e for red blood cells (RBC)Ordered By: Erendira Hayes on 03-29-2025 Microscopic analysis of urine for red blood cells (RBC) 0 SEEN /hpf 0-5 [facility] Monocyte percentageOrdered B y: Aby Donovan on 03-29-2025 Monocytes/100 WBC (Bld) 4.8 % 0-10 [facility] Mucus LM Ql (Urine sed)Order ed By: Erendira Hayes on 03-29-2025 Mucus Ql (Urine sed) 0 SEEN /hpf [facility] Neutrophil percentageOrdered By: Aby Donovan on 03-29-2025 Neutrophils/100 WBC (Bld) 71.8 % High 47-70 [facility] Nitrite Test strip Ql (U)Ord ered By: Erendira Hayes on 03-29-2025 Nitrite Ql (U) Negative Negative [facility] Nucleated red blood cell per centageOrdered By: Aby Donovan on 03-29-2025 Nucleated RBC/100 WBC (Bld) [Ratio] 0 % 0-5 [facility] OB Triage Physician Noteon 0 03-29-2025 OB Triage Physician Note [facility] Medical Records Department [address] [place] [address] OB Triage Physician Note 03/29/25 0516 MR#: [id number] Acct: [id number] Name: MARZENA PICKERING Rep #: [id number] : 1990 34 From: Aby Donovan CNRuma PCP: Care Physician,No Primary Status:REG CLI Y [facility] - General HPI Narrative MARZENA PICKERING, is a 34 F at 36.4 weeks gestation who presents to triage with contractions that started yesterday. Denies any loss of fluid but had vaginal spotting since last night. [facility] Medical History (Updated 03/29/25 @ 05:27 by Aby Donovan CNM) Genital herpes affecting Home Medications ???Medication ???Instructions ???Recorded ???Last Taken ???Type 1 tab PO/SL DAILY Check with 12/2703/28/25 18:00 History primary doctor sertraline 100 mg tablet (Zoloft) 100 mg PO DAILY Check with primar y 12/27/20 03/28/25 18:00 History doctor 100 mg acyclovir 400 mg tablet 400 mg PO TID Check with primary 0 11/07/21 03/28/25 18:00 History doctor 400 mg ferrous sulfate 325 mg (65 mg 325 mg PO QDAY 03/17/25 03/26/25 1 8:00 History iron) tablet (Feosol) 325 mg omeprazole 20 mg capsule,delayed 20 mg PO DAILY 03/17/25 03/28/25 1 8:00 History release 20 mg Allergy/AdvReac Type Severity Reaction Status Date / Time tree nut Allergy Hives Verified 03/29/25 00:31 Family History Sister Family history of defect Surgical History History of surgery Social History adopted: Yes Smoking Status: Never smoker History Elective abortions Hx Para 2 Spontaneous abortions Hx # Term Pregnancies Ectopic pregnancies Hx # Pregnancies Multiple births # of living children ROS Eyes Eyes: Denies blurry vision Cardiovascular Cardiovascular: Reports none; Denies chest pain at rest, chest pain with activity or dizziness Respiratory/Chest Respiratory/Chest: Denies cough or dyspnea Gastrointestinal Gastrointestinal: Reports none and other; Denies diarrhea or vomiting Genitourinary Genitourinary: Denies dysuria Musculoskeletal Musculoskeletal: Reports none Integumentary Integumentary: Reports none; Denies rash Neurologic Neurologic: Denies dizziness, headache(s) or other visual disturbances Psychiatric Psychiatric: Reports none Physical Exam Const alert and no apparent distress General Appearance: cooperative Orientation / Consciousness: awake Exam Limitations: no limitations HEENT normocephalic Eyes General Eye: normal appearance of both eyes Neck full ROM Chest inspection of chest normal Resp normal respiratory effort and normal air movement Effort and Inspection: symmetric chest movement Auscultation: clear to auscultation bilaterally Cardio regular rate GI soft to palpation, non-tender and non-distended Inspection: and other Back/Spine normal ROM Extremity full ROM, normal capillary refill and no calf tenderness Skin no rashes or lesions noted Neuro oriented x3 and CN's II-XII intact bilaterally Psych mental status grossly normal NST FHR Rate Baby A Baseline: 125 Variability:: Moderate Accelerations:: 15 x 15 Decelerations:: None NST Reactive:: Yes FHR Category:: Category I Uterine Activity:: 2-7 minutes and palpate mild and relaxed in between Assessment Plan (1) contractions: (2) Iron deficiency anemia: (3) History of OCD (obsessive compulsive disorder): (4) HSV-2 seropositive: (5) 36 weeks gestation of : (6) Depression: (7) Genital HSV: (8) Anxiety: (9) Spotting complicating in third trimester: PLAN: Plan CE 2.5/60/-3 Small amount of blood noted with exam IV started and fluid bolus given Extended monitoring - NST reactive Patient desires to be rechecked and if unchanged - desires discharge Dr. Gr notified of A P and is collaborating physician 03/29/25 0744 Date Aby Donovan CNM [place] Signature (if applicable): Date CC: SEBASTIAN Donovan; No Primary Care Physician Signed Normal [facility] Partial Thromboplast Timeon 03-29-2025 aPTT Coag (Bld) [Time] 31.1 s Normal 24.1-36.2 [facility] Comment on above: Performed By: #### B TS, L300.4310, L300.3900, L509.8002 #### [facility] [address] [place], [address] Platelet countOrdered By: Mati Donovan on 03-29-2025 Platelets (Bld) [#/Vol] 283 10*3/uL 150-450 [facility] Protein Test strip Ql (U)Ord ered By: Erendira Hayes on 03-29-2025 Protein Ql (U) Negative Negative [facility] Prothrombin Time w/INRon INR Coag (PPP) [Relative time] 1.0 {INR} Normal [facility] Comment on above: Performed By: #### B TS, L300.4310, L300.3900, L509.8002 #### [facility] [address] [place], [address] PT Coag (PPP) [Time] 12.9 s Normal 11.7-14.9 [facility] Comment on above: Performed By: #### B TS, L300.4310, L300.3900, L509.8002 #### [facility] [address] [place], [address] Prothrombin timeOrdered By: Aby Donovan on 03-29-2025 PT Coag (PPP) [Time] 12.9 s 11.7-14.9 [facility] RBC Auto (Bld) [#/Vol]Ordere d By: Aby Donovan on 03-29-2025 RBC (Bld) [#/Vol] 3.48 10*6/uL Low 4.2-5.4 [facility] Squamous epithelial cells de tection in urine sediment by light microscopyOrdered By: Erendira Hayes on 03-29-2025 Epithelial cells.squamous LM Ql (Urine sed) 0-5 SEEN /hpf 5-10 [facility] Syphilis Antibodieson 2024 Syphilis Abs Non-Reactive Normal Nonreactive [facility] Comment on above: Performed By: #### B TS, L300.4310, L300.3900, L509.8002 #### [facility] [address] [place], [address] Type AND Screenon 03-29-2025 ABO and Rh group Nom (Bld) Blood group O Rh(D) positive Normal [facility] Comment on above: Order Comment: PN Performed By: #### B TS, L300.4310, L300.3900, L509.8002 #### [facility] [address] [place], [address] Urinalysis, Completeon 03-29 EPI,SQUAMOUS 0-5 SEEN Normal 5-10 [facility] Comment on above: Order Comment: CLEAN CATCH Performed By: #### M 100.2200, L400.0001 #### [facility] [address] [place], [address] BACTERIA 0 SEEN Normal None Seen [facility] Comment on above: Order Comment: CLEAN CATCH Performed By: #### M 100.2200, L400.0001 #### [facility] [address] [place], [address] Mucus Ql (Urine sed) 0 SEEN Normal [facility] Comment on above: Order Comment: CLEAN CATCH Performed By: #### M 100.2200, L400.0001 #### [facility] [address] [place], [address] RBC 0 SEEN Normal 0-5 [facility] Comment on above: Order Comment: CLEAN CATCH Performed By: #### M 100.2200, L400.0001 #### [facility] [address] [place], [address] WBC 0 SEEN Normal 0-5 [facility] Comment on above: Order Comment: CLEAN CATCH Performed By: #### M 100.2200, L400.0001 #### [facility] [address] [place], [address] Urine clarityOrdered By: Darian Hayes on 03-29-2025 Clarity (U) Clear Clear [facility] Urine color determinationOrd ered By: Erendira Hayes on 03-29-2025 Color (U) Yellow Yellow [facility] Urine glucose detectionOrder ed By: Erendira Hayes on 03-29-2025 Glucose Ql (U) Normal mg/dl Normal [facility] Urine leukocyte esterase det ection by dipstickOrdered By: Erendira Hayes on 03-29-2025 Leukocyte esterase Test strip Ql (U) Negative Negative [facility] Urine pHOrdered By: Erendira del rio on 03-29-2025 pH (U) 7.0 [pH] 5.0 - 8.0 [facility] Urine sediment bacteria coun t by microscopy (number/high power field)Ordered By: Erendira Hayes on 03-29-2025 Bacteria LM.HPF (Urine sed) [#/Area] 0 /[HPF] None Seen [facility] Urine specific gravity measu rementOrdered By: Erendira Hayes on 03-29-2025 Specific gravity (U) [Rel density] 1.010 1.002-1.030 [facility] Urine urobilinogen measureme ntOrdered By: Erendira Hayes on 03-29-2025 Urobilinogen Ql (U) Normal mg/dl Normal [facility] White blood cell (WBC) count Ordered By: Aby Donovan on 03-29-2025 WBC (Bld) [#/Vol] 9.5 10*3/uL 4.4-11.0 [facility] White blood cell countOrdere d By: Erendira Hayes on 03-29-2025 White blood cell count 0 SEEN /hpf 0-5 [facility] CNPNon 03-23-2025 [place] Telephone (SourceClear) -------- MARZENA PICKERING ([id number]) 1990 F [facility] Date Time Provider Department 03/23/25 ANJALI GUZMÁN During your visit today, we recorded the [...] Assessed Reason for Visit: [facility] COVID Outreach [3795] Prescriptions as of 03/23/2025 - omeprazole (PRILOSEC) [...] 1/2 tablets by mouth once daily. - [id number] 28 mg-800 mcg- 200 mg cap Take [...] Encounter Status:Closed by ANJALI GUZMÁN on 03/23/25 Normal [facility] Alecia 03-20-2025 CNPN Telephone (CORPMN) -------- MARZENA PICKERING ([id number]) 1990 [employer] Date Time Provider Department 03/20/25 JESSY SEGURA [...] Onset: 03/18/25 -Best email for electronic communication: [email or web address]; -Email sent to leadership: [email or web address] - Employee ID: [id number] Plan - Discussed positive COVID19 result. Reinforced self-isolation, avoiding public areas and gatherings. Mask while home with family and not isolated alone - Advised no work until cleared by [employer]. Clearance will be provided through [employer] COVID19 questionnaire sent through Ev[employer] message, followed by clearance email sent to manager integrity (emails will be sent Saturday through Saturday) - Advised to contact PCP regarding positive test result/symptom management - Advised to seek evaluation by primary care provider, [facility], [facility], or ED with worsening or escalating symptoms. - Provided with caregiver follow-up email to preferred e-mail - Advised to call the COVID Hotline with outstanding questions/comments/khushi rns. Signature: Jessy Segura RN Patient Name: Marzena Pickering Date: 03/20/2025 Time: 3:29 PM Pager/Contact: [phone] Allergies As of Date: 03/20/2025 Noted Allergy Reaction TREE NUTS 05/19/2020 4 - Hives Comments: Occasionally gets hives when she eats cashews and almonds Date Reviewed: 03/05/2025 Reviewed by: Saul Cherry LPN - Fully Assessed [facility]6844] Prescriptions as of 03/20/2025 - omeprazole (PRILOSEC) [...] 1/2 tablets by mouth once daily. - [id number] 28 mg-800 mcg- 200 mg cap Take [...] Encounter Status:Closed by JESSY SEGURA on 03/20/25 Normal [facility] OB Triage Physician Noteon 0 03-17-2025 OB Triage Physician Note [facility] Medical Records Department [address] [place] [address] OB Triage Physician Note 03/17/252035 MR#: [id number] Acct: [id number] Name: MARZENA PICKERING Rep #: [id number] : 1990 34 From: Miriam Ramsey MD PCP: Care Physician,No Primary Status:REG CLI Y Location: [place]759-8 HPI - General General Date of Service: 03/17/25 HPI Narrative MARZENA PICKERING, is a 34 F @ 34.6 weeks who presents c/o contractions. reports has been not feeling great- no fevers - but is not drinking much water. denies VB, LOF. [facility] Medical History (Updated 03/17/25 @ 20:41 by [...] MD; No Primary Care Physician Signed Normal [facility] Examination level ultrasound on 03-16-2025 [facility] Radiology Study observation (narrative) [facility] CBC W Auto Differential pane l (Bld)on 02-22-2025 Basophils (Bld) [#/Vol] 10*3/uL Normal <0.11 [facility] Comment on above: Order Comment: Speci men Type: BLOOD SPECIMENOrdering Facility: [facility] Address: [address] [place] [address] Performed By: #### 5 7021-8 ####[facility] LESLYWNCLIA [id number] [place] [address] [place] Basophils/100 WBC (Bld) 0.2 % Normal [facility] Comment on above: Order Comment: Speci men Type: BLOOD SPECIMENOrdering Facility: [facility] Address: [address] [place] [address] Performed By: #### 5 7021-8 ####[facility]ITALLIA [id number] [place] [address] [place] Differential cell count method Nom (Bld) Auto Normal [facility] Comment on above: Order Comment: Speci men Type: BLOOD SPECIMENOrdering Facility: [facility] Address: [address] [place] [address] Performed By: #### 5 7021-8 ####[facility] HOSPITALNCLIA [id number] [place] [address] [place] Eosinophils (Bld) [#/Vol] 0.27 10*3/uL Normal <0.46 [facility] Comment on above: Order Comment: Speci men Type: BLOOD SPECIMENOrdering Facility: [facility] Address: [address] [place] [address] Performed By: #### 5 7021-8 ####[facility] MILLWNCLIA [id number] [place] [address] [place] Eosinophils/100 WBC (Bld) 3.3 % Normal [facility] Comment on above: Order Comment: Speci men Type: BLOOD SPECIMENOrdering Facility: [facility] Address: [address] [place] [address] Performed By: #### 5 7021-8 ####[facility] [id number] [place] [address] [place] Erythrocyte distribution width (RBC) [Ratio] 13.2 % Normal 11.5-15.0 [facility] Comment on above: Order Comment: Speci men Type: BLOOD SPECIMENOrdering Facility: [facility] Address: [address] [place] [address] Performed By: #### 5 7021-8 ####[facility] [id number] [place] [address] [place] Hematocrit (Bld) [Volume fraction] 30.8 % Low 36.0-46.0 [facility] Comment on above: Order Comment: Speci men Type: BLOOD SPECIMENOrdering Facility: [facility] Address: [address] [place] [address] Performed By: #### 5 7021-8 ####[facility] [id number] [place] [address] [place] Hemoglobin (Bld) [Mass/Vol] 10.5 g/dL Low 11.5-15.5 [facility] Comment on above: Order Comment: Speci men Type: BLOOD SPECIMENOrdering Facility: [facility] Address: [address] [place] [address] Performed By: #### 5 7021-8 ####[facility] [id number] [place] [address] [place] Immature granulocytes (Bld) [#/Vol] 0.04 10*3/uL Normal <0.10 [facility] Comment on above: Order Comment: Speci men Type: BLOOD SPECIMENOrdering Facility: [facility] Address: [address] [place] [address] Performed By: #### 5 7021-8 ####[facility] [id number] [place] [address] [place] Immature granulocytes/100 WBC (Bld) 0.5 % Normal [facility] Comment on above: Order Comment: Speci men Type: BLOOD SPECIMENOrdering Facility: [facility] Address: [address] [place] [address] Performed By: #### 5 7021-8 ####[facility] [id number] [place] [address] [place] Lymphocytes (Bld) [#/Vol] 1.81 10*3/uL Normal 1.00-4.00 [facility] Comment on above: Order Comment: Speci men Type: BLOOD SPECIMENOrdering Facility: [facility] Address: [address] [place] [address] Performed By: #### 5 7021-8 ####[facility] [id number] [place] [address] [place] Lymphocytes/100 WBC (Bld) 22.2 % Normal [facility] Comment on above: Order Comment: Speci men Type: BLOOD SPECIMENOrdering Facility: [facility] Address: [address] [place] [address] Performed By: #### 5 7021-8 ####[facility] [id number] [place] [address] [place] MCH (RBC) [Entitic mass] 29.7 pg Normal 26.0-34.0 [facility] Comment on above: Order Comment: Speci men Type: BLOOD SPECIMENOrdering Facility: [facility] Address: [address] [place], [place] [address] Performed By: #### 5 7021-8 ####[facility] [id number] [place] [address] [place] MCHC (RBC) [Mass/Vol] 34.1 g/dL Normal 30.5-36.0 [facility] Comment on above: Order Comment: Speci men Type: BLOOD SPECIMENOrdering Facility: [facility] Address: [address] [place] [address] Performed By: #### 5 7021-8 ####[facility] KENYAGALESBURGJAIDEN [id number] [place] [address] [place] MCV (RBC) [Entitic vol] 87.3 fL Normal 80.0-100.0 [facility] Comment on above: Order Comment: Speci men Type: BLOOD SPECIMENOrdering Facility: [facility] Address: [address] [place] [address] Performed By: #### 5 7021-8 ####[facility] [id number] [place] [address] [place] Monocytes (Bld) [#/Vol] 0.53 10*3/uL Normal <0.87 [facility] Comment on above: Order Comment: Speci men Type: BLOOD SPECIMENOrdering Facility: [facility] Address: [address] [place] [address] Performed By: #### 5 7021-8 ####[facility] [id number] [place] [address] [place] Monocytes/100 WBC (Bld) 6.5 % Normal [facility] Comment on above: Order Comment: Speci men Type: BLOOD SPECIMENOrdering Facility: [facility] Address: [address] [place] [address] Performed By: #### 5 7021-8 ####[facility]ALLIA [id number] [place] [address] [place] Neutrophils (Bld) [#/Vol] 5.49 10*3/uL Normal 1.45-7.50 [facility] Comment on above: Order Comment: Speci men Type: BLOOD SPECIMENOrdering Facility: [facility] Address: [address] [place] [address] Performed By: #### 5 7021-8 ####[facility] KENYAGALESBURGYILIA [id number] [place] [address] [place] Neutrophils/100 WBC (Bld) 67.3 % Normal [facility] Comment on above: Order Comment: Speci men Type: BLOOD SPECIMENOrdering Facility: [facility] Address: [address] [place] [address] Performed By: #### 5 7021-8 ####[facility] [id number] [place] [address] [place] Nucleated RBC (Bld) [#/Vol] 10*3/uL Normal <0.01 [facility] Comment on above: Order Comment: Speci men Type: BLOOD SPECIMENOrdering Facility: [facility] Address: [address] [place] [address] Performed By: #### 5 7021-8 ####[facility] [id number] [place] [address] [place] Nucleated RBC/100 WBC (Bld) [Ratio] 0.0 /100 WBC Normal [facility] Comment on above: Order Comment: Speci men Type: BLOOD SPECIMENOrdering Facility: [facility] Address: [address] [place] [address] Performed By: #### 5 7021-8 ####[facility] [id number] [place] [address] [place] Platelet mean volume (Bld) [Entitic vol] 10.6 fL Normal 9.0-12.7 [facility] Comment on above: Order Comment: Speci men Type: BLOOD SPECIMENOrdering Facility: [facility] Address: [address] [place] [address] Performed By: #### 5 7021-8 ####[facility]ITALNCLI [id number] [place] [address] [place] Platelets (Bld) [#/Vol] 267 10*3/uL Normal 150-400 [facility] Comment on above: Order Comment: Speci men Type: BLOOD SPECIMENOrdering Facility: [facility] Address: [address] [place] [address] Performed By: #### 5 7021-8 ####[facility]ITALNCLIA [id number] [place] [address] [place] RBC (Bld) [#/Vol] 3.53 10*6/uL Low 3.90-5.20 [facility] Comment on above: Order Comment: Speci men Type: BLOOD SPECIMENOrdering Facility: [facility] Address: [address] [place] [address] Performed By: #### 5 7021-8 ####[facility] HOSPITALNCA [id number] [place] [address] [place] WBC (Bld) [#/Vol] 8.16 10*3/uL Normal 3.70-11.00 [facility] Comment on above: Order Comment: Speci men Type: BLOOD SPECIMENOrdering Facility: [facility] Address: [address] [place] [address] Performed By: #### 5 7021-8 ####[facility]ITALNCLIA [id number] [place] [address] [place] Ferritin SerPl-mCncon 2024 Ferritin [Mass/Vol] 11.1 ng/mL Low 14.7-205.1 [facility] Comment on above: Order Comment: Speci men Type: BLOOD SPECIMENOrdering Facility: [facility] Address: [address] [place] [address] Performed By: #### 5 0190-8, 2276-4 ####[facility] LABCLIA [id number] [place] [address] [place] Iron and Iron binding capaci ty panelon 02-22-2025 Iron [Mass/Vol] 43 ug/dL Normal 41-186 [facility] Comment on above: Order Comment: Speci men Type: BLOOD SPECIMENOrdering Facility: [facility] Address: [address] [place] [address] Performed By: #### 5 0190-8, 2275- ####[facility] LABCLIA [id number] [place] [address] [place] Iron binding capacity [Mass/Vol] 482 ug/dL High 232-386 [facility] Comment on above: Order Comment: Speci men Type: BLOOD SPECIMENOrdering Facility: [facility] Address: [address] [place] [address] Performed By: #### 5 0190-8, 2275-10 ####[facility] LABCLIA [id number] [place] [address] [place] Iron/TIBC [Molar ratio] 8.9 % Low 15.0-57.0 [facility] Comment on above: Order Comment: Speci men Type: BLOOD SPECIMENOrdering Facility: [facility] Address: [address] [place] [address] Performed By: #### 5 0190-8, 2275-10 ####[facility] LABCLIA [id number] [place] [address] [place] BACTERIAL VAGINOSIS NAATon 0 02-18-2025 Lactobacillus crispatus+gasseri+mumtaz senii + Gardnerella vaginalis + Atopobium vaginae rRNA NIGHAT+probe Ql (Vag fld) Not detected Normal Not detected [facility] Comment on above: Order Comment: Speci men Type: SWAB [facility] Address: [address] [place] [address] Performed By: #### B VAMP #### [facility] CLIA [id number] [address] [place] [address] [place] C. trachomatis+N. gonorrhoea e DNA NIGHAT+probe Ql (Unsp spec)on 02-18-2025 C. trachomatis rRNA NIGHAT+probe Ql (Unsp spec) Not detected Normal Not detected [facility] Comment on above: Order Comment: Speci men Type: SWAB [facility] Address: [address] [place] [address] Performed By: #### 3 6902-5, TRVAMP #### [facility] CLIA [id number] [address] N. gonorrhoeae rRNA NIGHAT+probe Ql (Unsp spec) Not detected Normal Not detected [facility] Comment on above: Order Comment: Speci men Type: SWAB [facility] Address: [address] [place] [address] Performed By: #### 3 6902-5, TRVAMP #### [facility] CLIA [id number] [address] ED Triage Noteon 02-18-2025 ED Triage Note HNO ID: [id number] Author: RUBIA TILLMAN APRN.AGRICULTURAL ECONOMICS PROFESSOR Service: Emergency Medicine Author Type: Nurse Practitioner [...] placed in this encounter. SIGNATURE: Rubia Tillman APRN.AGRICULTURAL ECONOMICS PROFESSOR Normal [facility] TRICHOMONAS VAGINALIS NAATon 02-18-2025 T. vaginalis DNA NIGHAT+probe Ql (Unsp spec) Not detected Normal Not detected [facility] Comment on above: Order Comment: Speci men Type: SWAB [facility] Address: [address] [place] [address] Performed By: #### 3 6902-5, PATRICK #### [facility] CLIA [id number] [address] STATES OF [facility] CBC W Auto Differential pane l (Bld)on 01-25-2025 Basophils (Bld) [#/Vol] 0.03 10*3/uL Normal <0.11 [facility] Comment on above: Order Comment: Speci men Type: BLOOD SPECIMENOrdering Facility: [facility] Address: [address] [place] [address] Performed By: #### 5 7021-8 ####[facility] [id number] [place] [address] [place] Basophils/100 WBC (Bld) 0.3 % Normal [facility] Comment on above: Order Comment: Speci men Type: BLOOD SPECIMENOrdering Facility: [facility] Address: [address] [place] [address] Performed By: #### 5 7021-8 ####[facility] [id number] [place] [address] [place] Differential cell count method Nom (Bld) Auto Normal [facility] Comment on above: Order Comment: Speci men Type: BLOOD SPECIMENOrdering Facility: [facility] Address: [address] [place] [address] Performed By: #### 5 7021-8 ####[facility]ITALNCLIA [id number] [place] [address] [place] Eosinophils (Bld) [#/Vol] 0.31 10*3/uL Normal <0.46 [facility] Comment on above: Order Comment: Speci men Type: BLOOD SPECIMENOrdering Facility: [facility] Address: [address] [place] [address] Performed By: #### 5 7021-8 ####[facility] KENYATONNYA [id number] [place] [address] [place] Eosinophils/100 WBC (Bld) 3.1 % Normal [facility] Comment on above: Order Comment: Speci men Type: BLOOD SPECIMENOrdering Facility: [facility] Address: [address] [place] [address] Performed By: #### 5 7021-8 ####[facility] HOSPITALJAIDEN [id number] [place] [address] [place] Erythrocyte distribution width (RBC) [Ratio] 13.3 % Normal 11.5-15.0 [facility] Comment on above: Order Comment: Speci men Type: BLOOD SPECIMENOrdering Facility: [facility] Address: [address] [place] [address] Performed By: #### 5 7021-8 ####[facility]OSPITALNCST. [facility] [id number] [place] [address] [place] Hematocrit (Bld) [Volume fraction] 29.6 % Low 36.0-46.0 [facility] Comment on above: Order Comment: Speci men Type: BLOOD SPECIMENOrdering Facility: [facility] Address: [address] [place] [address] Performed By: #### 5 7021-8 ####[facility]ITALNCLIA [id number] [place] [address] [place] Hemoglobin (Bld) [Mass/Vol] 10.1 g/dL Low 11.5-15.5 [facility] Comment on above: Order Comment: Speci men Type: BLOOD SPECIMENOrdering Facility: [facility] Address: [address] [place] [address] Performed By: #### 5 7021-8 ####[facility]ITALNCLIA [id number] [place] [address] [place] Immature granulocytes (Bld) [#/Vol] 0.07 10*3/uL Normal <0.10 [facility] Comment on above: Order Comment: Speci men Type: BLOOD SPECIMENOrdering Facility: [facility] Address: [address] [place] [address] Performed By: #### 5 7021-8 ####[facility] [id number] [place] [address] [place] Immature granulocytes/100 WBC (Bld) 0.7 % Normal [facility] Comment on above: Order Comment: Speci men Type: BLOOD SPECIMENOrdering Facility: [facility] Address: [address] [place] [address] Performed By: #### 5 7021-8 ####[facility] [id number] [place] [address] [place] Lymphocytes (Bld) [#/Vol] 1.94 10*3/uL Normal 1.00-4.00 [facility] Comment on above: Order Comment: Speci men Type: BLOOD SPECIMENOrdering Facility: [facility] Address: [address] [place] [address] Performed By: #### 5 7021-8 ####[facility] [id number] [place] [address] [place] Lymphocytes/100 WBC (Bld) 19.2 % Normal [facility] Comment on above: Order Comment: Speci men Type: BLOOD SPECIMENOrdering Facility: [facility] Address: [address] [place] [address] Performed By: #### 5 7021-8 ####[facility] [id number] [place] [address] [place] MCH (RBC) [Entitic mass] 30.0 pg Normal 26.0-34.0 [facility] Comment on above: Order Comment: Speci men Type: BLOOD SPECIMENOrdering Facility: [facility] Address: [address] [place] [address] Performed By: #### 5 7021-8 ####[facility] JESSICAAGNIESZKAA [id number] [place] [address] [place] [facility] MCHC (RBC) [Mass/Vol] 34.1 g/dL Normal 30.5-36.0 [facility] Comment on above: Order Comment: Speci men Type: BLOOD SPECIMENOrdering Facility: [facility] Address: [address] [place] [address] Performed By: #### 5 7021-8 ####[facility] HOSPITALAGNIESZKAFaustino [id number] [place] [address] [place] MCV (RBC) [Entitic vol] 87.8 fL Normal 80.0-100.0 [facility] Comment on above: Order Comment: Speci men Type: BLOOD SPECIMENOrdering Facility: [facility] Address: [address] [place] [address] Performed By: #### 5 7021-8 ####[facility] HOSPITALAGNIESZKAA [id number] [place] [address] [place] Monocytes (Bld) [#/Vol] 0.60 10*3/uL Normal <0.87 [facility] Comment on above: Order Comment: Speci men Type: BLOOD SPECIMENOrdering Facility: [facility] Address: [address] [place] [address] Performed By: #### 5 7021-8 ####[facility] HOSPITALYILIA [id number] [place] [address] [place] Monocytes/100 WBC (Bld) 5.9 % Normal [facility] Comment on above: Order Comment: Speci men Type: BLOOD SPECIMENOrdering Facility: [facility] Address: [address] [place] [address] Performed By: #### 5 7021-8 ####[facility]LI [id number] [place] [address] [place] Neutrophils (Bld) [#/Vol] 7.17 10*3/uL Normal 1.45-7.50 [facility] Comment on above: Order Comment: Speci men Type: BLOOD SPECIMENOrdering Facility: [facility] Address: [address] [place] [address] Performed By: #### 5 7021-8 ####[facility] [id number] [place] [address] [place] Neutrophils/100 WBC (Bld) 70.8 % Normal [facility] Comment on above: Order Comment: Speci men Type: BLOOD SPECIMENOrdering Facility: [facility] Address: [address] [place] [address] Performed By: #### 5 7021-8 ####[facility] [id number] [place] [address] [place] Nucleated RBC (Bld) [#/Vol] 10*3/uL Normal <0.01 [facility] Comment on above: Order Comment: Speci men Type: BLOOD SPECIMENOrdering Facility: [facility] Address: [address] [place] [address] Performed By: #### 5 7021-8 ####[facility] [id number] [place] [address] [place] Nucleated RBC/100 WBC (Bld) [Ratio] 0.0 /100 WBC Normal [facility] Comment on above: Order Comment: Speci men Type: BLOOD SPECIMENOrdering Facility: [facility] Address: [address] [place] [address] Performed By: #### 5 7021-8 ####[facility]OS[facility]ITALNCLIA [id number] [place] [address] [place] Platelet mean volume (Bld) [Entitic vol] 10.3 fL Normal 9.0-12.7 [facility] Comment on above: Order Comment: Speci men Type: BLOOD SPECIMENOrdering Facility: [facility] Address: [address] [place] [address] Performed By: #### 5 7021-8 ####[facility] HOSPITALNCA [id number] [place] [address] [place] Platelets (Bld) [#/Vol] 266 10*3/uL Normal 150-400 [facility] Comment on above: Order Comment: Speci men Type: BLOOD SPECIMENOrdering Facility: [facility] Address: [address] [place] [address] Performed By: #### 5 7021-8 ####[facility] HOSPITALNCA [id number] [place] [address] [place] RBC (Bld) [#/Vol] 3.37 10*6/uL Low 3.90-5.20 [facility] Comment on above: Order Comment: Speci men Type: BLOOD SPECIMENOrdering Facility: [facility] Address: [address] [place] [address] Performed By: #### 5 7021-8 ####[facility]ITALA [id number] [place] [address] [place] WBC (Bld) [#/Vol] 10.12 10*3/uL Normal 3.70-11.00 [facility] Comment on above: Order Comment: Speci men Type: BLOOD SPECIMENOrdering Facility: [facility] Address: [address] [place] [address] Performed By: #### 5 7021-8 ####[facility] HOSPITALNCA [id number] [place] [address] [place] Ferritin SerPl-mCncon 2024 Ferritin [Mass/Vol] 14.9 ng/mL Normal 14.7-205.1 [facility] Comment on above: Order Comment: Speci men Type: BLOOD SPECIMENOrdering Facility: [facility] Address: [address] [place] [address] Performed By: #### 5 0190-8, 2275-10 ####[facility] LABCLIA [id number] [address] [address] [place] GESTATIONAL GLUCOSE SCREEN, 1-HOUR, 50 GRAM, NON-FASTINGon 01-25-2025 Glucose [Mass/Vol] 105 mg/dL Normal 74-134 [facility] Comment on above: Order Comment: Speci men Type: BLOOD SPECIMENOrdering Facility: [facility] Address: [address] [place] [address] Result Comment: [facility] Congress of Obstetricians and Gynecologists (Anjum/Chanel) guidelines state a gestational diabetes mellitus positive screen is made, in women not previously diagnosed with overt diabetes, when the 1 hr plasma glucose level is equal to or above 140 mg/dL. The [facility] Director Patient Financial Services and [facility] [place] recommends a 135 mg/dL cutoff. Performed By: #### G LTGST ####[facility] [id number] [place] [id number] [place] Iron and Iron binding capaci ty panelon 01-25-2025 Iron [Mass/Vol] 36 ug/dL Low 41-186 [facility] Comment on above: Order Comment: Speci men Type: BLOOD SPECIMENOrdering Facility: [facility] Address: [address] [place] [address] Performed By: #### 5 0190-8, 2275-10 ####[facility] LABCLIA [id number] [place] [id number] [place] Iron binding capacity [Mass/Vol] 448 ug/dL High 232-386 [facility] Comment on above: Order Comment: Speci men Type: BLOOD SPECIMENOrdering Facility: [facility] Address: [address] [place] [address] Performed By: #### 5 0190-8, 2275-4 ####[facility] LABIA [id number] [place] [address] [place] Iron/TIBC [Molar ratio] 8.0 % Low 15.0-57.0 [facility] Comment on above: Order Comment: Speci men Type: BLOOD SPECIMENOrdering Facility: [facility] Address: [address] [place] [address] Performed By: #### 5 0190-8, 4 ####[facility] LABIA [id number] [place] [address] [place] Reagin and Treponema pallidu m IgG and IgM [Interp]on 01-25-2025 T. pallidum IgG+IgM IA Ql (S) Non-Reactive Normal Nonreactive [facility] Comment on above: Order Comment: Speci men Type: BLOOD SPECIMENOrdering Facility: [facility] Address: [address] [place] [address] Performed By: #### 7 3752-8 ####[facility] [id number] [place] [address] [place] Reagin+T pallidum IgG+IgM Se rPl-Impon 01-25-2025 Reagin and Treponema pallidum IgG and IgM [Interp] Cannot exclude recent Treponemal infection if specimen collected within 7-10 days after appearance of suspect lesions or 2-3 weeks after an exposure. Clinical correlation is required. Normal [facility] Comment on above: Order Comment: Speci men Type: BLOOD SPECIMENOrdering Facility: [facility] Address: [address] [place] [address] Performed By: #### 7 3752-8 ####[facility] LABST [facility] [id number] [address] [address] [place] [id number] 01-18-2025 [id number] HNO ID: [id number] Author: NAVYA OCHOA RN Service: ? Author Type: Registered Nurse Type: [id number] Filed: 01/18/2025 08:55 Note Text: REPORT THE [...] If you think you broke your water [facility] HISTORY PHYSICALon HISTORY PHYSICAL HNO ID: [id number] Author: DENISE REICH MD Service: Obstetrics Author [...] was discussed with the patient or authorized printing supplies sales representative. The patient or authorized printing supplies sales representative has agreed to proceed with the sensitive examination. PHYSICAL EXAM: General: comfortable Abdomen: soft, nontender, no masses Extremities: no edema Cervical Exam: closed/long CERVICAL EXAM: Dilation: Closed (01/18/25 0845 : Navya cOhoa RN) cm Station: -1 (01/18/25155 : Lexi Desai RN) Effacement: 50 (01/18/25155 : Lexi Desai RN) % Presentation: MONITORING/ASSESSMENT: NST with discrete interpretation : MONITORING/ASSESSMENT: Baseline Rate: 135 bpm (01/18/25699 : Lexi Desai RN) Variability: Moderate (6-25 bpm) (01/18/25699 : Lexi Desai RN) Accelerations: Present (01/18/25699 : Lexi Desai RN) Decelerations: None (01/18/25699 : Lexi Desai RN) Contractions: Regular (01/18/25699 : Lexi Desai RN) Contraction Frequency (min): 3-4 (01/18/25699 : Lexi Desai RN) NST INTERPRETATION: FHR Category: 1 (01/18/25699 : Lexi Desai RN) Ultrasound: n/a LABS Diagnostic tests reviewed for today's visit: No new labs 34 year old EGA:26w4d. Assessment AND Plan contractions (HCC) Discharge home with precautions SIGNATURE: Denise Reich MD PATIENT NAME: Marzena Pickering DATE: January 18, 2025 TIME: 8:53 AM [facility] ED NOTEon 01-17-2025 ED NOTE HNO ID: [id number] Author: ANNE-MARIE CARRASCO RN Service: ? Author Type: Registered Nurse Type: ED Notes Filed: 01/17/2025 23:04 Note Text: PT REPORT WAS GIVEN TO JOSE ANTONIO VELASQUEZ FROM OB. PT TAKEN TO OB VIA W/C BY VIVIEN ALFONSO [facility] Examination level ultrasound on 10-07-2024 Indication First trimester anatomic survey Impression REMOTE READ The patient is referred for a first trimester anatomy scan including nuchal translucency measurement as clinically indicated. - Single, live, intrauterine . - [place] rump length measurement is consistent with the [...] view: suboptimal 4-chamber view with color: suboptimal 7-lvvojm-jommedm view: suboptimal Abdominal cord insertion: normal Stomach: [...] Read By: Agueda Hernandez MD MATERNAL MEDICINE [facility] Examination level ultrasound on 10-06-2024 Radiology Study observation (narrative) [facility] [id number] PLUSon 10-06-2024 Cell-free DNA./Cell-free DNA.total Dosage of chromosome-specific cfDNA (cfDNA) [Molar fraction] 18% Normal [facility] Comment on above: Order Comment: Speci men Type: BLOOD SPECIMENOrdering Facility: [facility] Address: [address] [place] [address] Performed By: #### M AT21 ####[facility] LABCLIA [id number] [place] [address] Chr 13+18+21+X+Y aneuploidy Dosage of chromosome-specific cfDNA Ql (cfDNA) Negative Normal [facility] Comment on above: Order Comment: Speci men Type: BLOOD SPECIMENOrdering Facility: [facility] Address: [address] [place] [address] Performed By: #### M AT21 ####[facility] LABCLIA [id number] [place] [address] Chr 21 trisomy Dosage of chromosome-specific cfDNA Ql (cfDNA) Negative Normal [facility] Comment on above: Order Comment: Speci men Type: BLOOD SPECIMENOrdering Facility: [facility] Address: [address] [place] [address] Performed By: #### M AT21 ####[facility] LABCLIA [id number] [place] [address] Chr X and Y aneuploidy risk Sequencing Ql (cfDNA) [Interp] Not detected Normal [facility] Comment on above: Order Comment: Speci men Type: BLOOD SPECIMENOrdering Facility: [facility] Address: [address] [place] [address] Result Comment: Not Detected Not Detected Performed By: #### M AT21 ####[facility] LABCLIA [id number] [place] [address] Citation Espinoza (Reference lab test) Comment Normal [facility] Comment on above: Order Comment: Speci men Type: BLOOD SPECIMENOrdering Facility: [facility] Address: [address] [place] [address] Result Comment: 1. P yvette TIMMONS, et al. Sera Med. 2012;14(3):296-305. 2. Sandra GRUBBS, et al. Prenat Diag. 2013;33(6):591-597. 3. Shailesh C, et al. Clin Chem. 2015 Oct;61(4):608-616. 4. Alison TIMMONS, et al. Sera Med. 2011;13(11):913-920. 5. ACOG/SMFM Practice Bulletin No. 226, Apr 2020. Performed By: #### M AT21 ####[facility] LABCLIA [id number] [place] [id number] Gestational age Estimated from conception date Boykin Normal [facility] Comment on above: Order Comment: Speci men Type: BLOOD SPECIMENOrdering Facility: [facility] Address: [address] [place] [address] Performed By: #### M AT21 ####[facility] LABCLIA [id number] [place] [address] GESTATIONALAGE AGE > OR = 9W Yes Normal [facility] Comment on above: Order Comment: Speci men Type: BLOOD SPECIMENOrdering Facility: [facility] Address: [address] [place] [address] Performed By: #### M AT21 ####[facility] LABCLIA [id number] [place] [address] Laboratory comment Espinoza (Report) Comment Normal [facility] Comment on above: Order Comment: Speci men Type: BLOOD SPECIMENOrdering Facility: [facility] Address: [address] [place] [address] Result Comment: The MaterniT(R) 21 PLUS laboratory-developed test (LDT) analyzes circulating cell-free DNA from a maternal blood sample. This test is used for screening purposes and not diagnostic. Clinical correlation is recommended. Validation data on twin pregnancies is limited and the ability of this test to detect aneuploidy in higher multiple gestations has not yet been validated. Performed By: #### M AT21 ####[facility] LABCLIA [id number] [place] [address] director audience marketing name Nom (Provider) Comment Normal [facility] Comment on above: Order Comment: Speci men Type: BLOOD SPECIMENOrdering Facility: [facility] Address: [address] [place] [address] Result Comment: This specimen showed an expected representation of chromosome 21, 18 and 13 material. Clinical correlation is suggested. Comment Kenneth Randall MD, PhD, Director, [employer] [facility] Performed By: #### M AT21 ####[facility] LABCLIA [id number] [place] [address] LIMITATIONS OF THE TEST Comment Normal [facility] Comment on above: Order Comment: Speci men Type: BLOOD SPECIMENOrdering Facility: [facility] Address: [address] [place] [address] Result Comment: Sb alexander the results of [...] and Fragmin(R)). Performed By: #### M AT21 ####[facility] LABCLIA [id number] [place] [address] Monosomy X risk Dosage of chromosome-specific cfDNA Ql (Plasma cell-free+WBC DNA) [Interp] Not detected Normal [facility] Comment on above: Order Comment: Speci men Type: BLOOD SPECIMENOrdering Facility: [facility] Address: [address] [place] [address] Performed By: #### M AT21 ####[facility] LABCLIA [id number] [place] [address] NEGATIVE PREDICTIVE VALUE Note Normal [facility] Comment on above: Order Comment: Speci men Type: BLOOD SPECIMENOrdering Facility: [facility] Address: [address] [place] [address] Result Comment: The Negative Predictive Value (NPV) for trisomy 21, 18, and 13 is greater than 99%. The NPV for SCA and ESS cannot be calculated as SCA and ESS are only reported when an abnormality is detected. Performed By: #### M AT21 ####[employer] LABIA [id number] [facility] [place] [place] [address] PERFORMANCE CHARACTERISTICS Note Normal [facility] Comment on above: Order Comment: Cally rae Type: BLOOD SPECIMENOrdering Facility: [facility] Address: [address], [place] [address] Result Comment: ! Sex ! Accuracy: 99.4% [...] gestation only. Performed By: #### M AT21 ####[employer] LABTakumii SwedenIA [id number] [place] [address] POSITIVE PREDICTIVE VALUE N/A Normal [facility] Comment on above: Order Comment: Cally rae Type: BLOOD SPECIMENOrdering Facility: [facility] Address: [address] [place] [address] Performed By: #### M AT21 ####[employer] LABCLIA [id number] [place] [address] Reference Lab Test Method Comment Normal [facility] Comment on above: Order Comment: Cally rae Type: BLOOD SPECIMENOrdering Facility: [facility] Address: [address] [place] [address] Result Comment: See Notes Circulating cell-free DNA [...] and 22. Performed By: #### M AT21 ####[facility] LABCLIA [id number] [place] [address] Service comment (Unsp spec) [Interp] Comment Normal [facility] Comment on above: Order Comment: Speci men Type: BLOOD SPECIMENOrdering Facility: [facility] Address: [address] [place] [address] Result Comment: See Notes [employer]. is a subsidiary of [employer], using the brand [employer]. This test was developed and its performance characteristics determined by [employer]. It has not been cleared or approved by the Food and Drug Administration. This laboratory is certified under the Clinical Laboratory Improvement Amendments (CLIA) as qualified to perform high complexity clinical laboratory testing and accredited by the [employer] (CAP). If there is future clinical need for adding MaterniT GENOME testing, this specimen will be available until term. [facility] samples will not be retained beyond 60 days. [facility] patients will have to send a new sample for re-sequencing ([facility] Test Code: 780630). Performed By: #### M AT21 ####[facility] LABCLIA [id number] [place] [address] Sex Dosage of chromosome-specific cfDNA Nom (cfDNA) Comment Normal [facility] Comment on above: Order Comment: Speci men Type: BLOOD SPECIMENOrdering Facility: [facility] Address: [address] [place] [address] Result Comment: Cons istent with Female Performed By: #### M AT21 ####[facility] LABCLIA [id number] [place] [address] Test performance information Espinoza (Unsp spec) Comment Normal [facility] Comment on above: Order Comment: Speci men Type: BLOOD SPECIMENOrdering Facility: [facility] Address: [address] [place] [address] Result Comment: The performance characteristics of the MaterniT(R) 21 PLUS laboratory-developed test (LDT) have been determined in a clinical validation study with women at increased risk for chromosomal aneuploidy.[1-4] Performed By: #### M AT21 ####[facility] LABCLIA [id number] [place] [address] Trisomy 13 risk Dosage of chromosome-specific cfDNA Ql (cfDNA) [Interp] Negative Normal [facility] Comment on above: Order Comment: Speci men Type: BLOOD SPECIMENOrdering Facility: [facility] Address: [address] [place] [address] Performed By: #### M AT21 ####[facility] LABCLIA [id number] [place] [address] Trisomy 18 risk Dosage of chromosome-specific cfDNA Ql (Plasma cell-free+WBC DNA) [Interp] Negative Normal [facility] Comment on above: Order Comment: Cally rae Type: BLOOD SPECIMENOrdering Facility: [facility] Address: [address] [place] [address] Performed By: #### M AT21 ####[facility] LABCLIA [id number] [place] [address] CBC W Auto Differential pane l (Bld)on 10-05-2024 Basophils (Bld) [#/Vol] 0.04 10*3/uL Normal <0.11 [facility] Comment on above: Order Comment: Cally rae Type: BLOOD SPECIMEN [facility] Address: [address] [place] [address] Performed By: #### 5 7021-8 #### [facility] CLIA [id number] [address] [place], [place] [email or web address] [address] [place] Basophils/100 WBC (Bld) 0.5 % Normal [facility] Comment on above: Order Comment: Cally rae Type: BLOOD SPECIMEN [facility] Address: [address] [place] [address] Performed By: #### 5 7021-8 #### [facility] CLIA [id number] [address] [place], [place] [address] [place] Differential cell count method Nom (Bld) Auto Normal [facility] Comment on above: Order Comment: Speci men Type: BLOOD SPECIMEN [facility] Address: [address] [place] [address] Performed By: #### 5 7021-8 #### [facility] CLIA [id number] [address] [place] [address] [place] Eosinophils (Bld) [#/Vol] 0.34 10*3/uL Normal <0.46 [facility] Comment on above: Order Comment: Speci men Type: BLOOD SPECIMEN [facility] Address: [address] [place] [address] Performed By: #### 5 7021-8 #### [facility] CLIA [id number] [address] [place] [address] OF [place] Eosinophils/100 WBC (Bld) 4.1 % Normal [facility] Comment on above: Order Comment: Speci men Type: BLOOD SPECIMEN [facility] Address: [address] [place] [address] Performed By: #### 5 7021-8 #### [facility] CLIA [id number] [address] [place] [address] OF [place] Erythrocyte distribution width (RBC) [Ratio] 13.6 % Normal 11.5-15.0 [facility] Comment on above: Order Comment: Speci men Type: BLOOD SPECIMEN [facility] Address: [address] [place] [address] Performed By: #### 5 7021-8 #### [facility] CLIA [id number] [address] [place] [address] [place] Hematocrit (Bld) [Volume fraction] 35.6 % Low 36.0-46.0 [facility] Comment on above: Order Comment: Speci men Type: BLOOD SPECIMEN [facility] Address: [address] [place] [address] Performed By: #### 5 7021-8 #### [facility] CLIA [id number] [address] [place] [address] [place] Hemoglobin (Bld) [Mass/Vol] 12.0 g/dL Normal 11.5-15.5 [facility] Comment on above: Order Comment: Speci men Type: BLOOD SPECIMEN [facility] Address: [address] [place] [address] Performed By: #### 5 7021-8 #### [facility] CLIA [id number] [address] [place] [address] [place] Immature granulocytes (Bld) [#/Vol] 10*3/uL Normal <0.10 [facility] Comment on above: Order Comment: Speci men Type: BLOOD SPECIMEN [facility] Address: [address] [place] [address] Performed By: #### 5 7021-8 #### [facility] CLIA [id number] [address] [place] [address] [place] Immature granulocytes/100 WBC (Bld) 0.2 % Normal [facility] Comment on above: Order Comment: Speci men Type: BLOOD SPECIMEN [facility] Address: [address] [place] [address] Performed By: #### 5 7021-8 #### [facility] CLIA [id number] [address] [place] [address] [place] Lymphocytes (Bld) [#/Vol] 2.38 10*3/uL Normal 1.00-4.00 [facility] Comment on above: Order Comment: Speci men Type: BLOOD SPECIMEN [facility] Address: [address] [place] [address] Performed By: #### 5 7021-8 #### [facility] CLIA [id number] [address] [place] [address] [place] Lymphocytes/100 WBC (Bld) 28.4 % Normal [facility] Comment on above: Order Comment: Speci men Type: BLOOD SPECIMEN [facility] Address: [address] [place] [address] Performed By: #### 5 7021-8 #### [facility] CLIA [id number] [address] [place] [address] [place] MCH (RBC) [Entitic mass] 29.3 pg Normal 26.0-34.0 [facility] Comment on above: Order Comment: Speci men Type: BLOOD SPECIMEN [facility] Address: [address] [place] [address] Performed By: #### 5 7021-8 #### [facility] CLIA [id number] [address] [place] [address] [place] MCHC (RBC) [Mass/Vol] 33.7 g/dL Normal 30.5-36.0 [facility] Comment on above: Order Comment: Speci men Type: BLOOD SPECIMEN [facility] Address: [address] [place] [address] Performed By: #### 5 7021-8 #### [facility] CLIA [id number] [address] [place] [address] OF [facility] MCV (RBC) [Entitic vol] 86.8 fL Normal 80.0-100.0 [facility] Comment on above: Order Comment: Speci men Type: BLOOD SPECIMEN [facility] Address: [address] [place] [address] Performed By: #### 5 7021-8 #### [facility] CLIA [id number] [address] [place] [address] [place] Monocytes (Bld) [#/Vol] 0.52 10*3/uL Normal <0.87 [facility] Comment on above: Order Comment: Speci men Type: BLOOD SPECIMEN [facility] Address: [address] [place] [address] Performed By: #### 5 7021-8 #### [facility] CLIA [id number] [address] [place] [address] OF [place] Monocytes/100 WBC (Bld) 6.2 % Normal [facility] Comment on above: Order Comment: Speci men Type: BLOOD SPECIMEN [facility] Address: [address] [place] [address] Performed By: #### 5 7021-8 #### [facility] CLIA [id number] [address] [place] [address] [place] Neutrophils (Bld) [#/Vol] 5.09 10*3/uL Normal 1.45-7.50 [facility] Comment on above: Order Comment: Speci men Type: BLOOD SPECIMEN [facility] Address: [address] [place] [address] Performed By: #### 5 7021-8 #### [facility] CLIA [id number] [address] [place] [address] [place] Neutrophils/100 WBC (Bld) 60.6 % Normal [facility] Comment on above: Order Comment: Speci men Type: BLOOD SPECIMEN [facility] Address: [address] [place] [address] Performed By: #### 5 7021-8 #### [facility] CLIA [id number] [address] [place] [address] [place] Nucleated RBC (Bld) [#/Vol] 10*3/uL Normal <0.01 [facility] Comment on above: Order Comment: Speci men Type: BLOOD SPECIMEN [facility] Address: [address] [place] [address] Performed By: #### 5 7021-8 #### [facility] CLIA [id number] [address] [place] [address] [place] Nucleated RBC/100 WBC (Bld) [Ratio] 0.0 /100 WBC Normal [facility] Comment on above: Order Comment: Speci men Type: BLOOD SPECIMEN [facility] Address: [address] [place] [address] Performed By: #### 5 7021-8 #### [facility] CLIA [id number] [address] [place] [address] [place] Platelet mean volume (Bld) [Entitic vol] 10.5 fL Normal 9.0-12.7 [facility] Comment on above: Order Comment: Speci men Type: BLOOD SPECIMEN [facility] Address: [address] [place] [address] Performed By: #### 5 7021-8 #### [facility] CLIA [id number] [address] [place] [address] [place] Platelets (Bld) [#/Vol] 261 10*3/uL Normal 150-400 [facility] Comment on above: Order Comment: Speci men Type: BLOOD SPECIMEN [facility] Address: [address] [place] [address] Performed By: #### 5 7021-8 #### [facility] CLIA [id number] [address] [place] [address] [place] RBC (Bld) [#/Vol] 4.10 10*6/uL Normal 3.90-5.20 [facility] Comment on above: Order Comment: Speci men Type: BLOOD SPECIMEN [facility] Address: [address] [place] [address] Performed By: #### 5 7021-8 #### [facility] CLIA [id number] [address] [place] [address] [place] WBC (Bld) [#/Vol] 8.39 10*3/uL Normal 3.70-11.00 [facility] Comment on above: Order Comment: Speci men Type: BLOOD SPECIMEN [facility] Address: [address] [place] [address] Performed By: #### 5 7021-8 #### [facility] CLIA [id number] [address] [place] [address] [facility] OF [place] HBV surface Ag Ser Qlon - HBV surface Ag Ql (S) Non-Reactive Normal Equivo nrimal, Nonreactive [facility] Comment on above: Order Comment: Speci men Type: BLOOD SPECIMEN [facility] Address: [address] [place] [address] Result Comment: Resu lts were obtained with the [employer] IM IgM assay. Values obtained with different manufactures' assay methods may not be used interchangeably. Performed By: #### 1 6128-1, 5195-3, 41696-4, JANNETH #### [facility] CLIA [id number] [address] [place] [address] [place] HCV Ab Ser Qlon 10-05-2024 HCV Ab Ql (S) Non-Reactive Normal Nonreactive [facility] Comment on above: Order Comment: Speci men Type: BLOOD SPECIMEN [facility] Address: [address] [place] [address] Result Comment: Scre ening test negative Nonreactive HCV Antibody Screen is consistent with no HCV infection, unless recent infection is suspected or other evidence exists to indicate HCV infection. Results were obtained with the [employer] IM IgG assay. Values obtained with different manufactures' assay methods may not be used interchangeably. Performed By: #### 1 6128-1, 5195-3, 72370-1, JANNETH #### [facility] CLIA [id number] [address] [place] [address] [place] HIV 1+2 Ab IA Qlon HIV 1+2 Ab+HIV1 p24 Ag IA Ql Non-Reactive Normal Nonreactive [facility] Comment on above: Order Comment: Speci men Type: BLOOD SPECIMEN [facility] Address: [address] [place] [address] Result Comment: Nonr eactive: Less than 1.0 index value Specimens with an index value <1.0 are considered nonreactive for antibodies to HIV-1, HIV-2, and p24 antigen by the [employer] IM CHIV assay. Performed By: #### 1 6128-1, 5195-3, 74165-1, JANNETH #### [facility] CLIA [id number] [address] [place] [address] [place] HbA1c (Bld)on 10-05-2024 Average glucose Estimated from glycated hemoglobin (Bld) [Mass/Vol] 94 mg/dL Normal [facility] Comment on above: Order Comment: Speci men Type: BLOOD SPECIMEN [facility] Address: [address] [place] [address] Result Comment: eAG: (Estimated average glucose) is a calculated value from HgbA1c and is printing supplies sales representative of the average blood glucose level in the last 2-3 month period. Performed By: #### 5 5454-3 #### [facility] CLIA [id number] [address] [place] [address] [place] HbA1c (Bld) [Mass fraction] 4.9 % Normal 4.3-5.6 [facility] Comment on above: Order Comment: Cally rae Type: BLOOD SPECIMEN [facility] Address: [address] [place] [address] Result Comment: Amer [place] Diabetes Association guidelines indicate that patients with HgbA1c in the range 5.7-6.4% are at increased risk for development of diabetes, and intervention by lifestyle modification may be beneficial. HgbA1c greater or equal to 6.5% is considered diagnostic of diabetes. Performed By: #### 5 5454-3 #### [facility] CLIA [id number] [address] [place] [address] [place] RUBELLA IGG ANTIBODYon 10-05 RUBELLA IGG AB, QUAL Positive Normal Positive [facility] Comment on above: Order Comment: Cally rae Type: BLOOD SPECIMEN [facility] Address: [address] [place] [address] Result Comment: <5 I U/ML Negative for IgG antibodies to Rubella >= 5-9.9 IU/ML Equivocal for IgG antibodies to Rubella Virus. Obtain new specimen and test using Rubella IgG assay. >=10 IU/ML Positive for IgG antibodies to Rubella Performed By: #### 1 6128-1, 5195-3, 35559-9, RUBIGG #### [facility] CLIA [id number] [address] [place] [address] [place] Reagin and Treponema pallidu m IgG and IgM [Interp]on 10-05-2024 T. pallidum IgG+IgM IA Ql (S) Non-Reactive Normal Nonreactive [facility] Comment on above: Order Comment: Speci men Type: BLOOD SPECIMEN [facility] Address: [address] [place] [address] Performed By: #### 7 3752-8 #### [facility] CLIA [id number] [address] [place] [address] [place] Reagin+T pallidum IgG+IgM Se rPl-Impon 10-05-2024 Reagin and Treponema pallidum IgG and IgM [Interp] Cannot exclude recent Treponemal infection if specimen collected within 7-10 days after appearance of suspect lesions or 2-3 weeks after an exposure. Clinical correlation is required. [facility] Comment on above: Order Comment: Speci men Type: BLOOD SPECIMEN [facility] Address: [address] [place] [address] Performed By: #### 7 3752-8 #### [facility] CLIA [id number] [address] [place] [address] [place] TYPE + SCREEN PRENATALon ABO O [facility] Comment on above: Order Comment: Speci men Type: BLOOD SPECIMEN [facility] Address: [address] [place] [address] Performed By: #### T SPN #### [facility] CLIA [id number] [address] [place] [address] [place] Rh Nom (Bld) Positive [facility] Comment on above: Order Comment: Speci men Type: BLOOD SPECIMEN [facility] Address: [address] [place] [address] Performed By: #### T SPN #### [facility] CLIA [id number] [address] [place], [place] [id number] [place] TYPE AND SCREEN EXPIRATION 10/08/2024 23:59 [facility] Comment on above: Order Comment: Speci men Type: BLOOD SPECIMEN [facility] Address: [address], [place] [address] Performed By: #### T Lashonda #### [facility] [id number] [address] [place] [address] [facility] Alecia 09-16-2024 CNPN Telephone (PSWSTR) -------- MARZENA PICKERING ([id number]) 1990 F [facility] Date Time Provider Department 09/16/24 SAMARIA HAJI PSWSTR During your visit today, we recorded the following information about you: Marlena Olsen LPN 09/16/2024 1:34 PM Signed Call placed to patient (x2) with message left with today's VV information for today. Hopefully patient signs on for visit. SOCRATES Vasquez Nishi J, PRODUCT REPRESENTATIVE.AGRICULTURAL ECONOMICS PROFESSOR 09/16/2024 4:32 PM Signed Patient had to cancel her visit with the provider today as she got called into work. Could you please reach out and help the patient schedule an appointment sooner than her Corry visit. Allergies As of Date: 09/16/2024 Noted [...] Encounter Status:Closed by MARLENA OLSEN on 09/16/24 [facility] Alecia 09-15-2024 [facility] Telephone (PSWSTR) -------- MARZENA PICKERING ([id number]) 1990 F [facility] Date Time Provider Department 09/15/24 SAMARIA HAJI PSWSTR During your visit today, we recorded the following information about you: Marlena Olsen LPN 09/15/2024 11:12 AM Signed Call placed to patient, offering VV tomorrow 09/16/24 @ 4:30 pm to discuss medication side effects with Provider. Message left for patient to confirm visit via [employer] or by calling [phone]. SOCRATES Vasquez Nishi J, PRODUCT REPRESENTATIVE.AGRICULTURAL ECONOMICS PROFESSOR 09/15/2024 11:32 AM Signed Noted. Thank you. [...] Status:Closed by MARLENA OLSEN on 09/15/24 Normal [facility] BACTERIAL CULTURE, URINEOrde red By: Robby Rey on 09-09-2024 Bacteria identified Cx Nom (U) 10,000 -<50,000 CFU/ml Normal urogenital mery [facility] BACTERIAL VAGINOSIS NAATon 0 09-09-2024 Interpretation and review of laboratory results Normal [facility] Lactobacillus crispatus+gasseri+mumtaz senii + Gardnerella vaginalis + Atopobium vaginae rRNA NIGHAT+probe Ql (Vag fld) Not detected Not detected [facility] Bacteria identified Cx Nom ( U)Ordered By: Robby Rey on 09-09-2024 [facility] C. trachomatis+N. gonorrhoea e DNA NIGHAT+probe Ql (Unsp spec)on 09-09-2024 C. trachomatis rRNA NIGHAT+probe Ql (Unsp spec) Not detected Not detected [facility] Interpretation and review of laboratory results Normal [facility] N. gonorrhoeae rRNA NIGHAT+probe Ql (Unsp spec) Not detected Not detected [facility] This FDA-approved as say has been modified to accept rectal swabs self-collected in a healthcare setting. For self-collected rectal swabs, the test was developed and its performance characteristics determined by the [facility]'s [facility] [place] ([facility] It has not been cleared or approved by the FDA. [facility] is regulated under CLIA as qualified to perform high-complexity testing. This test is used for clinical purposes. It should not be regarded as investigational or for research. [facility] TRIXIE/TRICHOMONAS NAATon 0 09-09-2024 C. glabrata RNA NIGHAT+probe Ql (Vag fld) Not detected Not detected [facility] Trixie sp DNA NIGHAT+probe Ql (Vag fld) Not detected Not detected [facility] Comment on above: The Trixie species group target includes C. albicans, C. tropicalis, C. parapsilosis, and C. dubliniensis. Interpretation and review of laboratory results Normal [facility] T. vaginalis DNA NIGHAT+probe Ql (Unsp spec) Not detected Not detected [facility] BACTERIAL VAGINOSIS NAATon 0 09-08-2024 Lactobacillus crispatus+gasseri+mumtaz senii + Gardnerella vaginalis + Atopobium vaginae rRNA NIGHAT+probe Ql (Vag fld) Not detected Normal Not detected [facility] Comment on above: Order Comment: Speci men Type: SWABOrdering Facility: [facility] Address: [address] [place] [address] Performed By: #### B DANY, 30915-7 ####[facility] [id number] [place] [address] [place] Bacteria Ur Culton Bacteria identified Cx Nom (U) ORGANISM ID: 1 10,000 -<50,000 CFU/ml Normal urogenital mery Normal [facility] Comment on above: Performed By: #### 6 30-4 ####[facility] LABCLIA [id number] [place] [address] [place] C. trachomatis+N. gonorrhoea e DNA NIGHAT+probe Ql (Unsp spec)on 09-08-2024 C. trachomatis rRNA NIGHAT+probe Ql (Unsp spec) Not detected Normal Not detected [facility] Comment on above: Order Comment: Speci men Type: SWABOrdering Facility: [facility] Address: [address] [place] [address] Performed By: #### B VAMP, 65390-7 ####[facility] LABCLIA [id number] [place] [address] [place] N. gonorrhoeae rRNA NIGHAT+probe Ql (Unsp spec) Not detected Normal Not detected [facility] Comment on above: Order Comment: Speci men Type: SWABOrdering Facility: [facility] Address: [address] [place] [address] Performed By: #### B VAMP, 01804-7 ####[facility] LABCLIA [id number] [place] [address] [place] TRIXIE/TRICHOMONAS NAATon 0 09-08-2024 C. glabrata RNA NIGHAT+probe Ql (Vag fld) Not detected Normal Not detected [facility] Comment on above: Order Comment: Speci men Type: SWABOrdering Facility: [facility] Address: [address] [place] [address] Performed By: #### C VTV ####[facility] LABCLIA [id number] [place] [address] [place] Trixie sp DNA NIGHAT+probe Ql (Vag fld) Not detected Normal Not detected [facility] Comment on above: Order Comment: Speci men Type: SWABOrdering Facility: [facility] Address: [address] [place] [address] Result Comment: The Trixie species group target includes C. albicans, C. tropicalis, C. parapsilosis, and C. dubliniensis. Performed By: #### C VTV ####[facility] LABCLIA [id number] [place] [address] [place] T. vaginalis DNA NIGHAT+probe Ql (Unsp spec) Not detected Normal Not detected [facility] Comment on above: Order Comment: Speci men Type: SWABOrdering Facility: [facility] Address: [facility] [place] [address] Performed By: #### C VTV ####[facility] LABCLIA [id number] [place] [address] [place] POC EYE DROPPER ASSEMBLER ULTRASOUNDon 09-08-19 Indication Viability; confirm cardiac activity [...] Read By: Marlee Almanza CNM MATERNAL MEDICINE [facility] Radiology Study observation (narrative) [facility] ED PROV NOTEon 09-02-2024 ED PROV NOTE HNO ID: [id number] Author: MARGUERITE GARCIA APRN.AGRICULTURAL ECONOMICS PROFESSOR Service: Emergency Medicine Author Type: Nurse Practitioner [...] weeks , . She follows with a meter repair shop supervisor and was told after 6 weeks gestation, [...] detected GROUP (more content not included)... Normal [facility] B-HCG SerPl-aCncon 5 [place] [address].0 m[IU]/mL High <5.0 [facility] Comment on above: Order Comment: Speci men Type: BLOOD SPECIMEN [facility] Address: [address] [place] [address] [place] [address] Result Comment: EMMA TITATIVE HCG NORMAL RANGES Weeks of Gestation (Weeks Since LMP) 3 Weeks (5.8-71.2 mIU/mL) 4 Weeks (9.5-750 mIU/mL) 5 Weeks (217-7138 mIU/mL) 6 Weeks (158-49978 mIU/mL) 7 Weeks (3697-813034 mIU/mL) 8 Weeks (74032-804334 mIU/mL) 9 Weeks (77315-641261 mIU/mL) 10 Weeks (50426-557509 mIU/mL) 12 Weeks (97749-778808 mIU/mL) Referenced to 4th IS of [facility] Performed By: #### 2 1198-7 #### [facility] CLIA [id number] [place] CBC W Auto Differential pane l (Bld)on 09-01-2024 Basophils (Bld) [#/Vol] 10*3/uL Normal <0.11 [facility] Comment on above: Order Comment: Speci men Type: BLOOD SPECIMENOrdering Facility: [facility] Address: [address] [place] [address] Performed By: #### 5 7021-8 ####[facility] LABCLIA [id number] [address] STATES [facility] Basophils/100 WBC (Bld) 0.2 % Normal [facility] Comment on above: Order Comment: Speci men Type: BLOOD SPECIMENOrdering Facility: [facility] Address: [address] [place] [address] Performed By: #### 5 7021-8 ####[facility] LABCLIA [id number] [address] [place] Differential cell count method Nom (Bld) Auto Normal [facility] Comment on above: Order Comment: Speci men Type: BLOOD SPECIMENOrdering Facility: [facility] Address: [address] [place] [address] Performed By: #### 5 7021-8 ####[facility] LABCLIA [id number] [address] [place] Eosinophils (Bld) [#/Vol] 0.06 10*3/uL Normal <0.46 [facility] Comment on above: Order Comment: Speci men Type: BLOOD SPECIMENOrdering Facility: [facility] Address: [address] [place] [address] Performed By: #### 5 7021-8 ####[facility] LABCLIA [id number] [place] [address] [place] Eosinophils/100 WBC (Bld) 1.3 % Normal [facility] Comment on above: Order Comment: Speci men Type: BLOOD SPECIMENOrdering Facility: [facility] Address: [address] [place] [address] Performed By: #### 5 7021-8 ####[facility] LABIA [id number] [address] [place] [facility] Erythrocyte distribution width (RBC) [Ratio] 11.9 % Normal 11.5-15.0 [facility] Comment on above: Order Comment: Speci men Type: BLOOD SPECIMENOrdering Facility: [facility] Address: [address] [place] [address] Performed By: #### 5 7021-8 ####[facility] LABIA [id number] [address] [place] [facility] Hematocrit (Bld) [Volume fraction] 38.2 % Normal 36.0-46.0 [facility] Comment on above: Order Comment: Speci men Type: BLOOD SPECIMENOrdering Facility: [facility] Address: [address] [place] [address] Performed By: #### 5 7021-8 ####[facility] LABIA [id number] [place] [address] [place] Hemoglobin (Bld) [Mass/Vol] 12.8 g/dL Normal 11.5-15.5 [facility] Comment on above: Order Comment: Speci men Type: BLOOD SPECIMENOrdering Facility: [facility] Address: [address] [place] [address] Performed By: #### 5 7021-8 ####[facility] LABCLIA [id number] [place] [address] [place] Immature granulocytes (Bld) [#/Vol] 10*3/uL Normal <0.10 [facility] Comment on above: Order Comment: Speci men Type: BLOOD SPECIMENOrdering Facility: [facility] Address: [address] [place] [address] Performed By: #### 5 7021-8 ####[facility] LABIA [id number] [address] [place] [facility] Immature granulocytes/100 WBC (Bld) 0.2 % Normal [facility] Comment on above: Order Comment: Speci men Type: BLOOD SPECIMENOrdering Facility: [facility] Address: [address] [place] [address] Performed By: #### 5 7021-8 ####[facility] [id number] [place] [address] [place] Lymphocytes (Bld) [#/Vol] 0.98 10*3/uL Low 1.00-4.00 [facility] Comment on above: Order Comment: Speci men Type: BLOOD SPECIMENOrdering Facility: [facility] Address: [address] [place] [address] Performed By: #### 5 7021-8 ####[facility] LABIA [id number] [address] Lymphocytes/100 WBC (Bld) 21.7 % Normal [facility] Comment on above: Order Comment: Speci men Type: BLOOD SPECIMENOrdering Facility: [facility] Address: [address] [place] [address] Performed By: #### 5 7021-8 ####[facility] [id number] [place] [address] [place] MCH (RBC) [Entitic mass] 28.8 pg Normal 26.0-34.0 [facility] Comment on above: Order Comment: Speci men Type: BLOOD SPECIMENOrdering Facility: [facility] Address: [address] [place] [address] Performed By: #### 5 7021-8 ####[facility] LABIA [id number] [place] [address] [place] [facility] MCHC (RBC) [Mass/Vol] 33.5 g/dL Normal 30.5-36.0 [facility] Comment on above: Order Comment: Speci men Type: BLOOD SPECIMENOrdering Facility: [facility] Address: [address] [place] [address] Performed By: #### 5 7021-8 ####[facility] [id number] [place] [address] [facility] MCV (RBC) [Entitic vol] 85.8 fL Normal 80.0-100.0 [facility] Comment on above: Order Comment: Speci men Type: BLOOD SPECIMENOrdering Facility: [facility] Address: [address] [place] [address] Performed By: #### 5 7021-8 ####[facility] [id number] [address] [place] Monocytes (Bld) [#/Vol] 0.46 10*3/uL Normal <0.87 [facility] Comment on above: Order Comment: Speci men Type: BLOOD SPECIMENOrdering Facility: [facility] Address: [address] [place] [address] Performed By: #### 5 7021-8 ####[facility] [id number] [address] Monocytes/100 WBC (Bld) 10.2 % Normal [facility] Comment on above: Order Comment: Speci men Type: BLOOD SPECIMENOrdering Facility: [facility] Address: [address] [place] [address] Performed By: #### 5 7021-8 ####[facility] [id number] [place] [address] [place] Neutrophils (Bld) [#/Vol] 2.99 10*3/uL Normal 1.45-7.50 [facility] Comment on above: Order Comment: Speci men Type: BLOOD SPECIMENOrdering Facility: [facility] Address: [address] [place] [address] Performed By: #### 5 7021-8 ####[facility] LABIA [id number] [address] [place] [facility] Neutrophils/100 WBC (Bld) 66.4 % Normal [facility] Comment on above: Order Comment: Speci men Type: BLOOD SPECIMENOrdering Facility: [facility] Address: [address] [place] [address] Performed By: #### 5 7021-8 ####[facility] LABIA [id number] [place] [address] [place] Nucleated RBC (Bld) [#/Vol] 10*3/uL Normal <0.01 [facility] Comment on above: Order Comment: Speci men Type: BLOOD SPECIMENOrdering Facility: [facility] Address: [address] [place] [address] Performed By: #### 5 7021-8 ####[facility] LABIA [id number] [place] [address] [place] Nucleated RBC/100 WBC (Bld) [Ratio] 0.0 /[address] [facility] Comment on above: Order Comment: Speci men Type: BLOOD SPECIMENOrdering Facility: [facility] Address: [address] [place] [address] Performed By: #### 5 7021-8 ####[facility] LABIA [id number] [place] [address] [place] Platelet mean volume (Bld) [Entitic vol] 10.0 fL Normal 9.0-12.7 [facility] Comment on above: Order Comment: Speci men Type: BLOOD SPECIMENOrdering Facility: [facility] Address: [address] [place] [address] Performed By: #### 5 7021-8 ####[facility] LABIA [id number] [place] [address] [place] Platelets (Bld) [#/Vol] 236 10*3/uL Normal 150-400 [facility] Comment on above: Order Comment: Speci men Type: BLOOD SPECIMENOrdering Facility: [facility] Address: [address] [place] [address] Performed By: #### 5 7021-8 ####[facility] LABIA [id number] [place] [address] [place] [facility] RBC (Bld) [#/Vol] 4.45 10*6/uL Normal 3.90-5.20 [facility] Comment on above: Order Comment: Speci men Type: BLOOD SPECIMENOrdering Facility: [facility] Address: [address] [place] [address] Performed By: #### 5 7021-8 ####[facility] [id number] [place] [address] [facility] WBC (Bld) [#/Vol] 4.51 10*3/uL Normal 3.70-11.00 [facility] Comment on above: Order Comment: Speci men Type: BLOOD SPECIMENOrdering Facility: [facility] Address: [address] [place] [address] Performed By: #### 5 7021-8 ####[facility] [id number] [place] [address] [facility] CNOVon 09-01-2024 CNOV Office Visit (UCUPNO ) -------- MARZENA PICKERING ([id number]) 1990 F [facility] Date Time Provider Department 09/01/24 5:20 PM ARIANNA BYNUM During your visit today, we recorded the following information about you: Temperature Pulse Respiration Blood pressure 99.1 degrees 74/minute 16/minute 109/71 Weight Last Period 61 kg 07/16/24 Arianna Bynum APRN.AGRICULTURAL ECONOMICS PROFESSOR 09/01/2024 6:18 PM Signed Recommend ER for [...] her children had influenza. 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 [...] or erythematous. Nose: Nose normal. Mouth/Throat: Lips: Fossil. No lesions. Mouth: Mucous membranes are moist. Pharynx: Oropharynx is clear. Uvula midline. Posterior orop (more content not included)... Normal [facility] Comprehensive metabolic 2000 panelon 09-01-2024 Albumin [Mass/Vol] 4.5 g/dL Normal 3.9-4.9 [facility] Comment on above: Order Comment: Speci men Type: BLOOD SPECIMEN [facility] Address: [address] [place] [address] Performed By: #### 2 4323-8 #### [facility] CLIA [id number] [address] [place] [address] [place] ALP [Catalytic activity/Vol] 72 U/L Normal 34-123 [facility] Comment on above: Order Comment: Speci men Type: BLOOD SPECIMEN [facility] Address: [address] [place] [address] Performed By: #### 2 4323-8 #### [facility] CLIA [id number] [address] [place] [address] [place] ALT [Catalytic activity/Vol] 14 U/L Normal 7-38 [facility] Comment on above: Order Comment: Speci men Type: BLOOD SPECIMEN [facility] Address: [address] [place] [address] Performed By: #### 2 4323-8 #### [facility] CLIA [id number] [address] [place] [address] [place] Anion gap [Moles/Vol] 12 mmol/L Normal 8-15 [facility] Comment on above: Order Comment: Speci men Type: BLOOD SPECIMEN [facility] Address: [address] [place] [address] Performed By: #### 2 4323-8 #### [facility] CLIA [id number] [address] [place] [address] [place] AST [Catalytic activity/Vol] 22 U/L Normal 13-35 [facility] Comment on above: Order Comment: Speci men Type: BLOOD SPECIMEN [facility] Address: [address] [place] [address] Performed By: #### 2 4323-8 #### [facility] CLIA [id number] [address] [place] [address] [place] Bilirubin [Mass/Vol] 0.3 mg/dL Normal 0.2-1.3 [facility] Comment on above: Order Comment: Speci men Type: BLOOD SPECIMEN [facility] Address: [address] [place] [address] Performed By: #### 2 4323-8 #### [facility] CLIA [id number] [address] [place] [address] [place] Calcium [Mass/Vol] 9.3 mg/dL Normal 8.5-10.2 [facility] Comment on above: Order Comment: Speci men Type: BLOOD SPECIMEN [facility] Address: [address] [place] [address] Performed By: #### 2 4323-8 #### [facility] CLIA [id number] [address] [place] [address] [place] Chloride [Moles/Vol] 100 mmol/L Normal 98-107 [facility] Comment on above: Order Comment: Speci men Type: BLOOD SPECIMEN [facility] Address: [address] [place] [address] Performed By: #### 2 4323-8 #### [facility] CLIA [id number] [address] [place] [address] [place] CO2 [Moles/Vol] 24 mmol/L Normal 22-30 [facility] Comment on above: Order Comment: Speci men Type: BLOOD SPECIMEN [facility] Address: [address] [place] [address] Performed By: #### 2 4323-8 #### [facility] CLIA [id number] [address] [place], [place] [address] [place] Creatinine [Mass/Vol] 0.57 mg/dL Low 0.58-0.96 [facility] Comment on above: Order Comment: Cally rae Type: BLOOD SPECIMEN [facility] Address: [address] [place] [address] Performed By: #### 2 4323-8 #### [facility] CLIA [id number] [address] [place] [address] [place] Creatinine and Glomerular filtration rate.predicted panel (S/P/Bld) 124 mL/min/1.73m??? Normal >=60 [facility] Comment on above: Order Comment: Cally rae Type: BLOOD SPECIMEN [facility] Address: [address] [place] [address] Result Comment: Kimberlee mated Glomerular Filtration Rate [...] GFR. Performed By: #### 2 4323-8 #### [facility] CLIA [id number] [address] [place] [address] [place] Glucose [Mass/Vol] 92 mg/dL Normal 74-99 [facility] Comment on above: Order Comment: Cally rae Type: BLOOD SPECIMEN [facility] Address: [address] [place] [address] Result Comment: The [place] Diabetes Association (ADA) provides guidance for cutoff [...] Standards of Medical Care in Diabetes 2016, [place] Diabetes Association. Diabetes Care. 2016.39(Suppl 1). Performed By: #### 2 4323-8 #### [facility] CLIA [id number] [address] [place] [address] [place] Potassium [Moles/Vol] 4.0 mmol/L Normal 3.7-5.1 [facility] Comment on above: Order Comment: Speci men Type: BLOOD SPECIMEN [facility] Address: [address] [place] [address] Performed By: #### 2 4323-8 #### [facility] CLIA [id number] [address] [place] [address] [place] Protein [Mass/Vol] 7.9 g/dL Normal 6.3-8.0 [facility] Comment on above: Order Comment: Speci men Type: BLOOD SPECIMEN [facility] Address: [address] [place] [address] Performed By: #### 2 4323-8 #### [facility] CLIA [id number] [address] [place] [address] [place] Sodium [Moles/Vol] 136 mmol/L Normal 136-144 [facility] Comment on above: Order Comment: Speci men Type: BLOOD SPECIMEN [facility] Address: [address] [place] [address] Performed By: #### 2 4323-8 #### [facility] CLIA [id number] [address] [place] [address] [place] Urea nitrogen [Mass/Vol] 7 mg/dL Normal 7-21 [facility] Comment on above: Order Comment: Speci men Type: BLOOD SPECIMEN [facility] Address: [address] [place] [address] Performed By: #### 2 4323-8 #### [facility] CLIA [id number] [address] [place] [address] [place] ED Triage Noteon 09-01-2024 ED Triage Note HNO ID: [id number] Author: MARGUERITE GARCIA APRN.[place] Service: Emergency Medicine [...] patient as a primary patient. See other physician/AGRICULTURAL ECONOMICS PROFESSOR/[place] notation. SIGNATURE: Marguerite Garcia APRN.BROOKE Normal [facility] S pyo DNA Throat Ql NIGHAT+prob rylee 09-01-2024 S. pyogenes DNA NIGHAT+probe Ql (Throat) Not detected Normal Not detected [facility] Comment on above: Order Comment: Speci men Type: SWAB [facility] Address: [address] [place] [address] Performed By: #### 6 0489-2 #### [facility] CLIA [id number] [address] [place] [address] [place] US PREG TRANSABD <14 WKS LTD on 09-01-2024 US PREG TRANSABD <14 WKS LTD * * *Final Report* * * DATE OF EXAM: Sep 01 2024 10:02PM U 1035 - US PREG TRANSABD <14 WKS LTD / [facility] 1034 - US PREG TRANSVAG <14 WEEKS / PROCEDURE REASON: Pelvic pain, positive beta-HCG, laundry aide etiology suspected * * * * Physician [...] 0.28 cm - Embryo: Single present - [place] rump length: 0.38 cm, corresponding gestational age [...] weeks, 0 days by crown rump length. Senior Center Director: [facility] Transcribe Date/Time: Sep 01 2024 11:45P Dictated by : TYE GARDNER MD This examination was interpreted and the report reviewed and electronically signed by: TYE GARDNER MD on Sep 02 2024 12:27AM EST [id number] [facility] US PREG TRANSVAG <14 WEEKSon 09-01-2024 US PREG TRANSVAG <14 WEEKS * * *Final Report* * * DATE OF EXAM: Sep 01 2024 10:02PM U 1035 - US PREG TRANSABD <14 WKS LTD / [facility] 1034 - US PREG TRANSVAG <14 WEEKS / PROCEDURE REASON: Pelvic pain, positive beta-HCG, laundry aide etiology suspected * * * * Physician [...] 0.28 cm - Embryo: Single present - [place] rump length: 0.38 cm, corresponding gestational age [...] weeks, 0 days by crown rump length. Senior Center Director: [facility] Transcribe Date/Time: Sep 01 2024 11:45P Dictated by : TYE GARDNER MD This examination was interpreted and the report reviewed and electronically signed by: TYE GARDNER MD on Sep 02 2024 12:27AM EST [id number] Normal [facility] Urinalysis complete panel (U )on 09-01-2024 Bacteria LM.HPF (Urine sed) [#/Area] Few Abnormal None Seen [facility] Comment on above: Order Comment: Speci men Type: URINE SPECIMEN [facility] Address: [address] [place] [address] Performed By: #### 2 4356-8 #### [facility] CLIA [id number] [address] [place] [address] [place] Bilirubin Ql (U) Negative Normal Negative [facility] Comment on above: Order Comment: Speci men Type: URINE SPECIMEN [facility] Address: [address] [place] [address] Performed By: #### 2 4356-8 #### [facility] CLIA [id number] [address] [place] [address] [place] Clarity (Unsp spec) Clear Normal Clear [facility] Comment on above: Order Comment: Speci men Type: URINE SPECIMEN [facility] Address: [address] [place] [address] Performed By: #### 2 4356-8 #### [facility] CLIA [id number] [address] [place] [address] [place] Color (U) Yellow Normal Yellow [facility] Comment on above: Order Comment: Speci men Type: URINE SPECIMEN [facility] Address: [address] [place] [address] Performed By: #### 2 4356-8 #### [facility] CLIA [id number] [address] [place] [address] [place] Epithelial cells LM.HPF (Urine sed) [#/Area] Few Normal [facility] Comment on above: Order Comment: Speci men Type: URINE SPECIMEN [facility] Address: [address] [place] [address] Performed By: #### 2 4356-8 #### [facility] CLIA [id number] [address] [place] [address] [place] Glucose Test strip (U) [Mass/Vol] Negative Normal Negative [facility] Comment on above: Order Comment: Speci men Type: URINE SPECIMEN [facility] Address: [address] [place] [address] Performed By: #### 2 4356-8 #### [facility] CLIA [id number] [address] [place] [address] [place] OF JUAN F Hemoglobin Ql (U) Negative Normal Negative [facility] Comment on above: Order Comment: Speci men Type: URINE SPECIMEN [facility]ing Facility[facility] Address: [address] [place] [address] Performed By: #### 2 4356-8 #### [facility] CLIA [id number] [address] [place] [address] [place] Ketones Ql (U) Negative Normal Negative [facility] Comment on above: Order Comment: Speci men Type: URINE SPECIMEN [facility]ing Facility[facility] Address: [address] [place] [address] Performed By: #### 2 4356-8 #### [facility] CLIA [id number] [address] [place] [address] [place] Leukocyte esterase Test strip Ql (U) Negative Normal Negative [facility] Comment on above: Order Comment: Speci men Type: URINE SPECIMEN [facility]ing [facility] Address: [address] [place] [address] Performed By: #### 2 4356-8 #### [facility] CLIA [id number] [address] [place] [address] [place] Nitrite Ql (U) Negative Normal Negative [facility] Comment on above: Order Comment: Speci men Type: URINE SPECIMEN [facility]ing [facility] Address: [address] [place] [address] Performed By: #### 2 4356-8 #### [facility] CLIA [id number] [address] [place] [address] [place] pH (U) 6.5 [pH] Normal 5.0-8.0 [facility] Comment on above: Order Comment: Speci men Type: URINE SPECIMEN [facility]ing [facility] Address: [address] [place] [address] Performed By: #### 2 4356-8 #### [facility] CLIA [id number] [address] [place] [address] [place] Protein (U) [Mass/Vol] Negative Normal Negative [facility] Comment on above: Order Comment: Speci men Type: URINE SPECIMEN [facility] Address: [address] [place] [address] Performed By: #### 2 4356-8 #### [facility] CLIA [id number] [address] [place] [address] [place] RBC LM.HPF (Urine sed) [#/Area] 0-3 /HPF Normal 0-3 /HPF [facility] Comment on above: Order Comment: Speci men Type: URINE SPECIMEN [facility] Address: [address] [place] [address] Performed By: #### 2 4356-8 #### [facility] CLIA [id number] [address] [place] [address] [place] Specific gravity (U) [Rel density] 1.020 Normal 1.005-1.030 [facility] Comment on above: Order Comment: Speci men Type: URINE SPECIMEN [facility] Address: [address] [place] [address] Performed By: #### 2 4356-8 #### [facility] [place] [id number] [address] [place] [address] Urobilinogen Ql (U) 0.2 EU/dL Normal 0.2-1.0 EU/dL [facility] Comment on above: Order Comment: Speci men Type: URINE SPECIMEN [facility] Address: [address] [place] [address] Performed By: #### 2 4356-8 #### [facility] [place] [id number] [address] [place] [address] [place] WBC LM.HPF (Urine sed) [#/Area] 0-5 /HPF Normal 0-5 /HPF [facility] Comment on above: Order Comment: Speci men Type: URINE SPECIMEN [facility] Address: [address] [place] [address] Performed By: #### 2 4356-8 #### [facility] CLIA [id number] [address] [place] [address] OF [facility] CNPSusan 08-24-2024 CNPN Telephone (OBGYWM) -------- LADANMARZENA ([id number]) 1990 [employer] Date Time Provider Department 08/24/24 MARLEE ALMANZA OBGYWM During your visit today, we recorded the [...] provider has further recommendations. RON Vaca Jessica, APRN.CNM 08/25/2024 9:47 AM Signed That is fine, can send zofran prescription if desires. BLAKE Nava Trisha, RN 08/25/2024 10:16 AM Signed Patient notified. She [...] Assessed Reason for Visit: Question (OB Question) [0012] Prescriptions as of 08/25/2024 - buPROPion SR [...] Encounter Status:Closed by YENI CRAIG on 08/25/24 Normal [facility] Alecia 08-14-2024 CNPN Telephone (PSWSTR) -------- MARZENA PICKERING ([id number]) 1990 F [facility] Date Time Provider Department 08/14/24 SAMARIA HAJI PSWSTR During your visit today, we recorded the following information about you: Christel Thompson RN 08/14/2024 11:35 AM Signed Pt calling in to let Samaria Solano know that she recently found out she [...] about the Wellbutrin? Pt is leaving for [place] today-her flight leaves at 220 pm today. States okay to leave a detailed voicemail. Samaria Haji, [employer]UZ[employer].AGRICULTURAL ECONOMICS PROFESSOR 08/14/2024 11:48 AM Signed Spoke with the [...] Fully Assessed Reason for Visit: Medication Question [1478] Order(s):buPROPion SR (WELLBUTRIN SR) 100 mg 12 [...] Status:Closed by CHRISTEL THOMPSON on 08/19/24 Normal [facility] HCG QUANTITATIVEOrdered By: Kimmy Hagen on 12-19-2023 HCG.beta subunit Qn [facility] Comment on above: Negative HCG.beta subunit QnOrdered B y: Kimmy Hagen on 12-19-2023 Interpretation and review of laboratory results [facility] TRIXIE/TRICHOMONAS NAATon 0 01-03-2023 C. glabrata RNA NIGHAT+probe Ql (Vag fld) Negative Negative for Trixie glabrata [facility] Trixie sp DNA NIGHAT+probe Ql (Vag fld) Positive Abnormal Negative for Trixie species [facility] T. vaginalis DNA NIGHAT+probe Ql (Unsp spec) Negative Negative for Trichomonas vaginalis by amplification [facility] Bacteria identified Cx Nom ( Throat)on 12-20-2022 Culture Result XXX [facility] RAPID STREP TEST B/Oon 12-17 Quality Check Yes [facility] S. pyogenes Ag IA Ql (Unsp spec) Negative neg - pos [facility] THROAT CULTUREon 12-17-2022 Throat culture CULTURE, THROAT No Streptococcus pyogenes (Group A streptococcus) isolated. SOURCE: THROAT SWAB Test Performed By: [facility] [address] [place] [address] Digital Computer Operator: Kamlesh Herrera III, M.D. See Below [facility] .GFRon 05-15-2022 GFR Non- 88 ml/min/1.73sqm Normal [facility] ([place]) Comment on above: Result Comment: GFR Population [...] mL/min/1.73 square meters Performed By: #### R UBEO, HBSAB, VARIS, RUBIS #### [place] [address] GFR 107 ml/min/1.73sqm Normal [facility] ([place]) Comment on above: Result Comment: GFR Population [...] mL/min/1.73 square meters Performed By: #### R UBEO, HBSAB, VARIS, RUBIS #### [address] [address] CMPon 05-15-2022 Albumin Level 4.4 G/dL Normal 3.5-5.0 [facility] ([place]) Comment on above: Performed By: #### R UBEO, HBSAB, VARIS, RUBIS #### [address] [address] Albumin/Globulin [Mass ratio] 1.4 {ratio} Normal 1.1-2.5 [facility] ([place]) Comment on above: Performed By: #### R UBEO, HBSAB, VARIS, RUBIS #### [address] [address] ALP [Catalytic activity/Vol] 70 U/L Normal 40-135 [facility] ([place]) Comment on above: Performed By: #### R UBEO, HBSAB, VARIS, RUBIS #### [address] [address] ALT [Catalytic activity/Vol] 18 U/L Normal 14-59 [facility] ([place]) Comment on above: Performed By: #### R UBEO, HBSAB, VARIS, RUBIS #### [address] [address] AST [Catalytic activity/Vol] 16 U/L Normal 10-40 [facility] ([place]) Comment on above: Performed By: #### R UBEO, HBSAB, VARIS, RUBIS #### [address] [address] Bili Total 0.6 mg/dL Normal 0.2-1.0 [facility] ([place]) Comment on above: Result Comment: Use of this assay is not recommended for patients undergoing treatment with eltrombopag due to the potential for falsely elevated results. Performed By: #### R UBEO, HBSAB, VARIS, RUBIS #### [place] [address] BUN/Creatinine Ratio 14 ratio Normal 7-27 Count includes the [facility] ([place]) Comment on above: Performed By: #### R UBEO, HBSAB, VARIS, RUBIS #### [place] [address] Calcium [Mass/Vol] 9.4 mg/dL Normal 8.4-10.2 [facility] ([place]) Comment on above: Performed By: #### R UBEO, HBSAB, VARIS, RUBIS #### [place] [address] Chloride [Moles/Vol] 102 mmol/L Normal 98-107 Count includes the [facility] ([place]) Comment on above: Performed By: #### R UBEO, HBSAB, VARIS, RUBIS #### [place] [id number] CO2 [Moles/Vol] 26 mmol/L Normal 22-29 [facility] ([place]) Comment on above: Performed By: #### R UBEO, HBSAB, VARIS, RUBIS #### [place] [id number] Creatinine [Mass/Vol] 0.77 mg/dL Normal 0.55-1.02 [facility] ([place]) Comment on above: Performed By: #### R UBEO, HBSAB, VARIS, RUBIS #### [facility] [address] [place], [place] [address] Electrolyte Balance 12.0 mEq/L Normal 4.0-15.0 [facility] ([place]) Comment on above: Performed By: #### STANLEY RIBERA VARISACACIA #### [address] [address] Globulin 3.2 G/dL Normal [facility] ([place]) Comment on above: Performed By: #### STANLEY RIBERA VARIS RUBFRANK #### [address] [address] Glucose [Mass/Vol] 81 mg/dL Normal 70-105 [facility] ([place]) Comment on above: Performed By: #### STANLEY RIBERA VARISACACIA #### [address] [address] Potassium [Moles/Vol] 4.1 mmol/L Normal 3.5-5.1 [facility] ([place]) Comment on above: Performed By: #### Jean Carlos ARAIZA HBSCHAN PUENTES RUBFRANK #### [address] [address] Sodium [Moles/Vol] 140 mmol/L Normal 136-145 [facility] ([place]) Comment on above: Performed By: #### Jean Carlos ARAIZA HBSAB VARIS, RUBFRANK #### [address] [address] Total Protein 7.6 G/dL Normal 6.4-8.2 [facility] ([place]) Comment on above: Performed By: #### Jean Carlos ARAIZA HBS, VARIS, RUBFRANK #### [address] [address] Urea nitrogen [Mass/Vol] 11 mg/dL Normal 7-18 [facility] ([place]) Comment on above: Performed By: #### Jean Carlos ARAIZA HBSAB, VARIS, RUBIS #### [address] [address] LIPIDon 05-15-2022 Cholesterol [Mass/Vol] 162 mg/dL Normal 0-200 [facility] ([place]) Comment on above: Result Comment: Chol esterol Reference Interval: Less than 200 Desirable 200-239 Borderline high risk 240 and above High risk Performed By: #### L IPID, CMP, GFR #### [place] [address] [place], [place] [address] Cholesterol in HDL [Mass/Vol] 74 mg/dL High 40-60 [facility] ([place]) Comment on above: Performed By: #### L IPID, CMP, GFR #### [place] [address] [place], [place] [address] Cholesterol in LDL [Mass/Vol] 78 mg/dL Normal 0-130 [facility] ([place]) Comment on above: Performed By: #### L IPID, CMP, GFR #### [place] [address] [place], [place] [address] Triglyceride [Mass/Vol] 49 mg/dL Normal 0-150 [facility] ([place]) Comment on above: Result Comment: Trig lyceride Reference Interval: Less than 150 Normal 150-199 Borderline high risk 200-499 High risk 500 or higher Very high risk Performed By: #### L IPID, CMP, GFR #### [facility] [address] [place], [place] [address] Absolute lymphocyte counton 11-16-2021 Lymphocytes Auto (Unsp spec) [#/Vol] 2.29 10*3/uL 0.83-4.51 [facility] Work Phone: Basophil percentageon 2021 Basophils/100 WBC (Bld) 0.1 % 0-1 [facility] Work Phone: Eosinophils/100 WBC (Bld) 0.5 % 0-5 [facility] Work Phone: Neutrophils (Bld) [#/Vol] 12.2 10*3/uL 2.0-7.7 [facility] Work Phone: Neutrophils/100 WBC (Bld) 78.2 % 47-70 [facility] Work Phone: WBC (Bld) [#/Vol] 15.6 10*3/uL 4.4-11.0 [facility] Work Phone: Blood erythrocytes count (nu mber/volume)on 11-16-2021 RBC (Bld) [#/Vol] 3.71 10*6/uL 4.2-5.4 [facility] Work [facility]: Blood hemoglobin measurement (mass/volume)on 11-16-2021 Hemoglobin (Bld) [Mass/Vol] 11.3 g/dL 12.0-15.0 [facility] Work Phone: Blood lymphocytes/100 leukoc yteson 11-16-2021 Lymphocytes/100 WBC (Bld) 14.7 % 19-41 [facility] Work Phone: Blood monocytes/100 leukocyt eson 11-16-2021 Monocytes/100 WBC (Bld) 5.9 % 0-10 [facility] Work Phone: Blood platelet mean volumeon 11-16-2021 Platelet mean volume (Bld) [Entitic vol] 10.6 fL 6.2-12.0 [facility] Work Phone: Determination of erythrocyte mean corpuscular volume (MCV)on 11-16-2021 MCV (RBC) [Entitic vol] 89.2 fL 81-99 [facility] Work Phone: Hematocrit Auto (Bld) [Volum e fraction]on 11-16-2021 Hematocrit (Bld) [Volume fraction] 33.1 % 37-47 [facility] Work Phone: Laboratory - Hematology and Cell countson 11-16-2021 Erythrocyte distribution width (RBC) [Entitic vol] 43.8 fL 35.1-43.9 [facility] Work Phone: Erythrocyte distribution width (RBC) [Ratio] 13.4 % 11.6-14.6 [facility] Work Phone: Immature granulocytes/100 WBC (Bld) 0.600 % 0.0-0.9 [facility] Work Phone: Comment on above: IG% - Immature Granu locytes (promyelocytes, myelocytes and metamyelocytes) > 1% indicates that a LEFT SHIFT is Present. MCH (RBC) [Entitic mass] 30.5 pg 27.0-32.0 [facility] Work Phone: Nucleated RBC/100 WBC (Bld) [Ratio] 0 % 0-5 [facility] Work Phone: MCHC Auto (RBC) [Mass/Vol]on 11-16-2021 MCHC (RBC) [Mass/Vol] 34.1 g/dL 32-36 [facility] Work Phone: Platelets bldon 11-16-2021 Platelets (Bld) [#/Vol] 273 10*3/uL 150-450 [facility] Work Phone: URINE OB DIP B/Oon 2 Glucose Ql (U) Negative Neg mg/dL [facility] Protein.monoclonal (U) [Mass/Vol] Negative Neg mg/dL [facility] Culture, urineon 11-08-2021 Bacteria identified Cx Nom (U) Presumptive C albicans [facility] Work Phone: Bacteria identified Cx Nom (U) Positive [facility] Work Phone: Basophil percentageon 2021 Basophil percentage 5-10 SEEN /hpf [facility] Work Phone: Bilirubin Test strip Ql (U)o n 11-07-2021 Bilirubin Ql (U) Negative Negative [facility] Work Phone: Ketones Test strip Ql (U)on 11-07-2021 Ketones Ql (U) Negative Negative [facility] Work Phone: Mucus LM Ql (Urine sed)on Mucus Ql (Urine sed) 0 SEEN /hpf [facility] Work Phone: Nitrite Test strip Ql (U)on 11-07-2021 Nitrite Ql (U) Negative Negative [facility] Work Phone: No Panel Informationon 11-07 Vaginal Amniotic Fluid Detection Negative Negative [facility] Work Phone: Comment on above: Amniotic fluid not p resent indicates No Rupture of FetalMembranes at time of specimen collection. Protein Test strip Ql (U)on 11-07-2021 Protein Ql (U) Negative Negative [facility] Work Phone: Squamous epithelial cells de tection in urine sediment by light microscopyon 11-07-2021 Epithelial cells.squamous LM Ql (Urine sed) 5-10 SEEN /hpf [facility] Work Phone: Urine blood detectionon 10-14 RBC Ql (U) 150 /ul Negative [facility] Work Phone: RBC Ql (U) 0-5 SEEN /hpf [facility] Work Phone: Urine clarityon 11-07-2021 Clarity (U) Sl. Cloudy Clear [facility] Work Phone: Urine color determinationon 11-07-2021 Color (U) Yellow Yellow [facility] Work Phone: Urine glucose detectionon Glucose Ql (U) Normal mg/dl Normal [facility] Work Phone: Urine leukocyte esterase det ection by dipstickon 11-07-2021 Leukocyte esterase Test strip Ql (U) 500 /ul Negative [facility] Work Phone: Urine pHon 11-07-2021 pH (U) 6.5 [pH] [facility] Work Phone: Urine sediment bacteria coun t by microscopy (number/high power field)on 11-07-2021 Bacteria LM.HPF (Urine sed) [#/Area] 1 /[HPF] None Seen [facility] Work Phone: Urine specific gravity measu rementon 11-07-2021 Specific gravity (U) [Rel density] 1.010 [facility] Work Phone: Urobilinogen Auto test strip Ql (U)on 11-07-2021 Urobilinogen Ql (U) Normal mg/dl Normal [facility] Work Phone: URINE OB DIP B/Oon 2 Glucose Ql (U) Negative Neg mg/dL [facility] Protein.monoclonal (U) [Mass/Vol] Negative Neg mg/dL [facility] AMNISUREon 10-28-2021 AMNISURE Negative Normal NEGATIVE [facility] Comment on above: Performed By: #### L 200.6000 #### [facility]AT[facility] [address] [place] [address] AMNISURE ROM (UNION)on 10-28 AMINSURE Negative NEGATIVE [facility] URINALYSISon 10-28-2021 Bilirubin Ql (U) Negative Normal NEGATIVE [facility] Comment on above: Performed By: #### L 200.3000, L200.3190 #### [facility] [address] [place] [address] Color (U) YELLOW Normal YELLOW [facility] Comment on above: Performed By: #### L 200.3000, L200.3190 #### [facility] [address] [place] [address] Glucose Ql (U) Negative Normal NEGATIVE [facility] Comment on above: Performed By: #### L 200.3000, L200.3190 #### [facility] [address] [place] [address] Hemoglobin Ql (U) Negative Normal NEGATIVE [facility] Comment on above: Performed By: #### L 200.3000, L200.3190 #### [facility] [address] [place] [address] Leukocyte esterase Test strip Ql (U) SMALL Normal NEGATIVE [facility] Comment on above: Performed By: #### L 200.3000, L200.3190 #### [facility] [address] [place] [address] Nitrite Ql (U) Negative Normal NEGATIVE [facility] Comment on above: Performed By: #### L 200.3000, L200.3190 #### [facility] [address] [place] [address] pH (U) 6.5 [pH] Normal 5.0-8.0 [facility] Comment on above: Performed By: #### L 200.3000, L200.3190 #### [facility] [address] [place] [address] Protein Ql (U) Negative Normal NEGATIVE [facility] Comment on above: Performed By: #### L 200.3000, L200.3190 #### [facility] [address] [place] [address] URINE APPEARANC CLEAR Normal CLEAR [facility] Comment on above: Performed By: #### L 200.3000, L200.3190 #### [facility] [address] [place] [address] URINE KETONE Negative Normal NEGATIVE [facility] Comment on above: Performed By: #### L 200.3000, L200.3190 #### [facility] [address] [place] [address] URINE SPECIFIC <=1.005 Normal 1.001-1.035 [facility] Comment on above: Performed By: #### L 200.3000, L200.3190 #### [facility] [address] [place] [address] URINE UROBILINO 0.2 EU/DL Normal 0.2-1.0 [facility] Comment on above: Performed By: #### L 200.3000, L200.3190 #### [facility] [address] [place] [address] URINALYSIS, DIPSTICK ONLYon 10-28-2021 Appearance (U) CLEAR CLEAR [facility] Bilirubin, Urine Negative NEGATIVE [facility] Blood, Urine Negative NEGATIVE [facility] Color (U) YELLOW YELLOW [facility] Glucose Ql (U) Negative NEGATIVE MG/DL [facility] Ketones Ql (U) Negative NEGATIVE MG/DL [facility] Leukocytes SMALL NEGATIVE [facility] Nitrites Urine Negative NEGATIVE [facility] pH (U) 6.5 [pH] 5.0 - 8.0 [facility] Protein.monoclonal (U) [Mass/Vol] Negative NEGATIVE MG/DL [facility] Specific [place], Ur <=1.005 1.001 - 1.035 C [facility] Urobilinogen, Urine 0.2 EU/DL 0.2 - 1. 0 EU/DL [facility] URINE MICROSCOPon 10-28-2021 SQUAMOUS MOD Normal NEGATIVE [facility] Comment on above: Performed By: #### L 200.3000, L200.3190 #### [facility] [address] [place] [address] URINE BACTERIA 1+ Normal NEGATIVE [facility] Comment on above: Performed By: #### L 200.3000, L200.3190 #### [facility] [address] [place] [address] URINE RBC 0-2 Normal 0-2 [facility] Comment on above: Performed By: #### L 200.3000, L200.3190 #### [facility] [address] [place] [address] URINE WBC 10-20 Normal 0-5 [facility] Comment on above: Performed By: #### L 200.3000, L200.3190 #### [facility] [address] [place] [address] Urinalysis complete panel (U )on 10-28-2021 Bacteria, Urine 1+ NEGATIVE [facility] RBC, Urine 0-2 0 - 2 [facility] Squamous Epithelial Cells MOD NEGATIVE [facility] WBC, Urine 10-20 0 - 5 [facility] URINE OB DIP B/Oon Glucose Ql (U) Negative Neg mg/dL [facility] Protein.monoclonal (U) [Mass/Vol] Negative Neg mg/dL [facility] RPRon 10-24-2021 Reagin Ab RPR Ql (S) Non-Reactive Normal Non-Reactive [facility] ([place]) Comment on above: Result Comment: The RPR [...] abnormal serum globulins. Performed By: #### R [place] #### [facility] [address] [place] [address] .Auto Diffon 10-22-2021 Basophil, Absolute 0.00 10 3/mcL Normal 0.00-0.27 [facility] ([place]) Comment on above: Performed By: #### R UBEO, HBSAB, VARIS, RUBIS #### [address] [address] Basophils/100 WBC (Bld) 0.1 % Normal 0.0-2.5 [facility] ([place]) Comment on above: Performed By: #### R UBEO, HBSAB, VARIS, RUBIS #### [address] [address] Eosinophil, Absolute 0.00 10 3/mcL Normal 0.00-0.65 [facility] ([place]) Comment on above: Performed By: #### R UBEO, HBSAB, VARIS, RUBIS #### [address] [address] Eosinophils/100 WBC (Bld) 0.0 % Normal 0.0-6.0 [facility] ([place]) Comment on above: Performed By: #### R UBEO, HBSAB, VARIS, RUBIS #### [address] [address] Lymphocyte, Absolute 1.40 10 3/mcL Normal 0.90-4.32 [facility] ([place]) Comment on above: Performed By: #### R UBEO, HBSAB, VARIS, RUBIS #### [address] [address] Lymphocytes/100 WBC (Bld) 10.7 % Low 20.0-40.0 [facility] ([place]) Comment on above: Performed By: #### R UBEO, HBSAB, VARIS, RUBIS #### [address] [address] Monocyte, Absolute 0.90 10 3/mcL Normal 0.09-1.40 [facility] ([place]) Comment on above: Performed By: #### R UBEO, HBSAB, VARIS, RUBIS #### [address] [address] Monocytes/100 WBC (Bld) 6.7 % Normal 2.0-13.0 [facility] ([place]) Comment on above: Performed By: #### R UBEO HBSABSANA RUBFRANK #### [address] [address] Neutrophils/100 WBC (Bld) 82.5 % High 50.0-75.0 [facility] ([place]) Comment on above: Performed By: #### R UBEO, HBSAB, SANA RUBIS #### [address] [address] Basophil, Absolute 0.00 10 3/mcL Normal 0.00-0.27 [facility] ([place]) Comment on above: Performed By: #### A SUZETTE MYERS, CBC #### [address] [address] Basophils/100 WBC (Bld) 0.1 % Normal 0.0-2.5 [facility] ([place]) Comment on above: Performed By: #### A SUZETTE MYERS, CBC #### [place] [address] Eosinophil, Absolute 0.00 10 3/mcL Normal 0.00-0.65 [facility] ([place]) Comment on above: Performed By: #### A SUZETTE MYERS, CBC #### [address] [address] Lymphocyte, Absolute 1.40 10 3/mcL Normal 0.90-4.32 [facility] ([place]) Comment on above: Performed By: #### A SUZETTE MYERS, CBC #### [address] [address] Monocyte, Absolute 0.20 10 3/mcL Normal 0.09-1.40 [facility] ([place]) Comment on above: Performed By: #### A SUZETTE MYERS, CBC #### [address] [address] .Auto DiffOrdered By: SYSTEM SYSTEM on 10-22-2021 Eosinophils/100 WBC (Bld) 0.1 % Normal 0.0-6.0 [facility] Comment on above: Performed By: #### A SUZETTE MYERS, CBC #### [address] [id number] Lymphocytes/100 WBC (Bld) 14.4 % Low 20.0-40.0 AH Remisol SS Comment on above: Performed By: #### A SUZETTE MYERS, CBC #### [address] [address] Monocytes/100 WBC (Bld) 1.9 % Low 2.0-13.0 AH Remisol SS Comment on above: Performed By: #### A SUZETTE MYERS, CBC #### [address] [address] Neutrophils/100 WBC (Bld) 83.5 % High 50.0-75.0 AH Remisol SS Comment on above: Performed By: #### A SUZETTE MYERS, CBC #### [address] [address] .NEUABSon 10-22-2021 Neutrophil, Absolute 10.60 10 3/mcL High 2.25-8.10 [facility] ([place]) Comment on above: Performed By: #### R UBEO, HBSAB, VARIS, RUBIS #### [address] [address] Neutrophil, Absolute 8.00 10 3/mcL Normal 2.25-8.10 [facility] ([place]) Comment on above: Performed By: #### A SUZETTE MYERS, CBC #### [address] [address] CBCon 10-22-2021 Erythrocyte distribution width (RBC) [Ratio] 12.7 % Normal 11.5-15.5 [facility] ([place]) Comment on above: Performed By: #### R UBEO, HBSAB, VARIS, RUBIS #### [address] [address] Hematocrit (Bld) [Volume fraction] 27.3 % Low 34.0-46.0 [facility] ([place]) Comment on above: Performed By: #### R UBEO, HBSAB, VARIS, RUBIS #### [address] [address] Hgb 9.3 G/dL Low 12.0-16.0 [facility] ([place]) Comment on above: Performed By: #### Jean Carlos UBEO HBSAB, VARIS, RUBIS #### [place] [address] MCH (RBC) [Entitic mass] 30.3 pg Normal 27.0-33.0 [facility] ([place]) Comment on above: Performed By: #### R UBEO, HBSAB, VARIS, RUBIS #### [place] [address] MCHC 34.0 G/dL Normal 32.0-36.0 [facility] ([place]) Comment on above: Performed By: #### R UBEO, HBSAB, VARIS, RUBIS #### [place] [address] MCV (RBC) [Entitic vol] 89.1 fL Normal 80.0-99.0 [facility] ([place]) Comment on above: Performed By: #### R UBEO, HBSAB, VARIS, RUBIS #### [place] [address] Platelet 257 10 3/mcL Normal 150-450 [facility] ([place]) Comment on above: Performed By: #### R UBEO, HBSAB, VARIS, RUBIS #### [place] [address] Platelet mean volume (Bld) [Entitic vol] 8.7 fL Normal 6.6-10.5 [facility] ([place]) Comment on above: Performed By: #### R UBEO, HBSAB, VARIS, RUBIS #### [place] [address] RBC 3.07 10 6/mcL Low 4.10-5.30 [facility] ([place]) Comment on above: Performed By: #### R UBEO, HBSAB, VARIS, RUBIS #### [place] [id number] WBC 12.80 10 3/mcL High 4.50-10.80 [facility] ([place]) Comment on above: Performed By: #### R UBEO, HBSAB, VARIS, RUBIS #### [address] [address] Hgb 9.8 G/dL Low 12.0-16.0 [facility] ([place]) Comment on above: Performed By: #### A SUZETTE MYERS, CBC #### [address] [address] MCHC 35.0 G/dL Normal 32.0-36.0 [facility] ([place]) Comment on above: Performed By: #### A SUZETTE MYERS, CBC #### [address] [address] Platelet 230 10 3/mcL Normal 150-450 [facility] ([place]) Comment on above: Performed By: #### A SUZETTE MYERS, CBC #### [place] [address] RBC 3.15 10 6/mcL Low 4.10-5.30 [facility] ([place]) Comment on above: Performed By: #### A SUZETTE MYERS, CBC #### [address] [address] WBC 9.50 10 3/mcL Normal 4.50-10.80 [facility] ([place]) Comment on above: Performed By: #### A SUZETTE MYERS, CBC #### [address] [address] CBCOrdered By: SYSTEM SYSTEM on 10-22-2021 Erythrocyte distribution width (RBC) [Ratio] 12.9 % Normal 11.5-15.5 AH Remisol SS Comment on above: Performed By: #### A SUZETTE MYERS, CBC #### [address] [address] Hematocrit (Bld) [Volume fraction] 27.9 % Low 34.0-46.0 AH Remisol SS Comment on above: Performed By: #### A SUZETTE MYERS, CBC #### [address] [address] MCH (RBC) [Entitic mass] 31.0 pg Normal 27.0-33.0 AH Remisol SS Comment on above: Performed By: #### A SUZETTE MYERS, CBC #### [address] [address] MCV (RBC) [Entitic vol] 88.5 fL Normal 80.0-99.0 AH Remisol SS Comment on above: Performed By: #### A SUZETTE MYERS, CBC #### [place] [address] Platelet mean volume (Bld) [Entitic vol] 8.8 fL Normal 6.6-10.5 AH Remisol SS Comment on above: Performed By: #### A SUZETTE MYERS, CBC #### [address] [address] LABORATORYOrdered By: SYSTEM SYSTEM on 10-22-2021 Eosinophils/100 [...] Invalid Interpretation Code 0.0 - 2.5 % Remisol SS Eosinophils (Bld) [#/Vol] 0.00 103/mcL Invalid Interpretation Code 0.00 - 0.65 10^3/mcL AH Remisol SS Lymphocytes (Bld) [#/Vol] 1.40 103/mcL Invalid Interpretation Code 0.90 - 4.32 10^3/mcL Remisol SS .Auto Diffon 10-21-2021 Basophil, Absolute 0.00 10 3/mcL Normal 0.00-0.27 [facility] ([place]) Comment on above: Performed By: #### Jean Carlos CANNONEO HBSAB VARIS RUBIS #### [address] [address] Basophils/100 WBC (Bld) 0.3 % Normal 0.0-2.5 [facility] ([place]) Comment on above: Performed By: #### Jean Carlos CANNONEYanni HBSAB VARIS RUBIS #### [address] [address] Eosinophil, Absolute 0.00 10 3/mcL Normal 0.00-0.65 A [facility] ([place]) Comment on above: Performed By: #### Jean Carlos UBEO HBSAB, VARIS RUBIS #### [address] [address] Eosinophils/100 WBC (Bld) 0.3 % Normal 0.0-6.0 [facility] ([place]) Comment on above: Performed By: #### R UBEO HBSAB, VARIS, RUBIS #### [address] [address] Lymphocyte, Absolute 2.40 10 3/mcL Normal 0.90-4.32 A [facility] ([place]) Comment on above: Performed By: #### R UBEO HBSAB, VARIS, RUBIS #### [address] [address] Lymphocytes/100 WBC (Bld) 18.1 % Low 20.0-40.0 [facility] ([place]) Comment on above: Performed By: #### R UBEO HBSAB, VARIS, RUBIS #### [address] [address] Monocyte, Absolute 0.70 10 3/mcL Normal 0.09-1.40 [facility] ([place]) Comment on above: Performed By: #### R UBEO, HBSAB, VARIS, RUBIS #### [address] [address] Monocytes/100 WBC (Bld) 4.9 % Normal 2.0-13.0 [facility] ([place]) Comment on above: Performed By: #### R UBEO, HBSAB, VARIS, RUBIS #### [address] [address] Neutrophils/100 WBC (Bld) 76.4 % High 50.0-75.0 [facility] ([place]) Comment on above: Performed By: #### R UBEO, HBSAB, VARIS, RUBIS #### [address] [address] .NEUABSon 10-21-2021 Neutrophil, Absolute 10.30 10 3/mcL High 2.25-8.10 [facility] ([place]) Comment on above: Performed By: #### R UBEO, HBSAB, VARIS, RUBIS #### [address] [address] ABO/Rh (Gel)on 10-21-2021 ABO/Rh Interp Positive Invalid Interpretation Code [facility] ([place]) Comment on above: Performed By: #### R UBEO, HBSAB, VARIS, RUBIS #### [address] [address] ABS (Gel)on 10-21-2021 ABSC Interp (Gel) Negative Normal [facility] ([place]) Comment on above: Performed By: #### R UBEO, HBSAB, VARIS, RUBIS #### [address] [address] CBCon 10-21-2021 Erythrocyte distribution width (RBC) [Ratio] 13.0 % Normal 11.5-15.5 [facility] ([place]) Comment on above: Performed By: #### R UBEO HBSAB, VARIS, RUBIS #### [place] [address] Hematocrit (Bld) [Volume fraction] 32.5 % Low 34.0-46.0 [facility] ([place]) Comment on above: Performed By: #### R UBEO HBSAB, VARIS, RUBIS #### [place] [address] Hgb 11.0 G/dL Low 12.0-16.0 [facility] ([place]) Comment on above: Performed By: #### R UBEO, HBSAB, VARIS, RUBIS #### [place] [id number] MCH (RBC) [Entitic mass] 30.0 pg Normal 27.0-33.0 [facility] ([place]) Comment on above: Performed By: #### R UBEO HBSAB, VARIS, RUBIS #### [place] [address] MCHC 33.9 G/dL Normal 32.0-36.0 [facility] ([place]) Comment on above: Performed By: #### R UBEO, HBSAB, VARIS, RUBIS #### [place] [address] MCV (RBC) [Entitic vol] 88.6 fL Normal 80.0-99.0 [facility] ([place]) Comment on above: Performed By: #### R UBEO, HBSAB, VARIS, RUBIS #### [place] [address] Platelet 270 10 3/mcL Normal 150-450 [facility] ([place]) Comment on above: Performed By: #### R UBEO, HBSAB, VARIS, RUBIS #### [place] [address] Platelet mean volume (Bld) [Entitic vol] 8.5 fL Normal 6.6-10.5 [facility] ([place]) Comment on above: Performed By: #### R UBEO, HBSAB, VARIS, RUBIS #### [place] [address] RBC 3.67 10 6/mcL Low 4.10-5.30 [facility] ([place]) Comment on above: Performed By: #### R UBEO, HBSAB, VARIS, RUBIS #### [place] [address] WBC 13.40 10 3/mcL High 4.50-10.80 [facility] ([place]) Comment on above: Performed By: #### R UBEO, HBSAB, VARIS, RUBIS #### [place] [address] UAon 10-21-2021 Color (U) Yellow Normal [facility] ([place]) Comment on above: Performed By: #### R UBEO, HBSAB, VARIS, RUBIS #### [place] [address] Glucose (U) [Mass/Vol] Negative Normal Negative [facility] ([place]) Comment on above: Performed By: #### R UBEO, HBSAB, VARIS, RUBIS #### [place] [address] Ketones Ql (U) Trace Normal Neg-Trace [facility] ([place]) Comment on above: Performed By: #### R UBEO, HBSAB, VARIS, RUBIS #### [place] [address] UA Appear Hazy Abnormal Clear [facility] ([place]) Comment on above: Performed By: #### R UBEO, HBSAB, VARIS, RUBIS #### [place] [address] UA Blood Negative Normal Neg-Trace [facility] ([place]) Comment on above: Performed By: #### R UBEO, HBSAB, VARIS, RUBIS #### [place] [address] UA Leuk Est Large Abnormal Negative [facility] ([place]) Comment on above: Performed By: #### R UBEO, HBSAB, VARIS, RUBIS #### [address] [address] UA Nitrite Negative Normal Negative [facility] ([place]) Comment on above: Performed By: #### Jean Carlos CANNONEYanni HBSAB, VARIS, RUBIS #### [address] [address] UA pH 7.0 Normal 5.0 - 8.0 [facility] ([place]) Comment on above: Performed By: #### R UBEYanni HBSAB, VARIS, RUBIS #### [address] [address] UA Protein Negative Normal Negative [facility] ([place]) Comment on above: Performed By: #### R UBEYanni HBSAB, VARIS, RUBIS #### [address] [address] UA Spec Grav <=1.005 Abnormal 1.006-1.029 [facility] ([place]) Comment on above: Performed By: #### Jean Carlos CANNONEYanni HBSAB, VARIS, RUBIS #### [address] [address] UA Specimen Type Clean Catch Normal [facility] ([place]) Comment on above: Performed By: #### Jean Carlos UBEO HBSAB, VARIS, RUBIS #### [address] [address] UA Urobilinogen 0.2 E.U./dL Normal 0.2-1.0 [facility] ([place]) Comment on above: Performed By: #### R UBEO HBSAB, VARIS, RUBIS #### [address] [address] Urobilinogen (U) [Mass/Vol] Negative Normal Neg-Trace [facility] ([place]) Comment on above: Performed By: #### R UBEO, HBSAB, VARIS, RUBIS #### [address] [address] UAMICon 10-21-2021 UA Bacteria Trace Abnormal Negative [facility] ([place]) Comment on above: Performed By: #### R UBEO HBSAB, VARIS, RUBIS #### [facility] [address] [place] [address] UA RBC Negative Normal 0-2 [facility] ([place]) Comment on above: Performed By: #### R UBEO, HBSAB, VARIS, RUBIS #### [facility] [address] [place] [address] UA Squam Epithelial 3-5 Normal 0-20 [facility] ([place]) Comment on above: Performed By: #### R UBEO, HBSAB, VARIS, RUBIS #### [facility] [address] [place] [address] UA WBC 5-10 Abnormal 0-5 [facility] ([place]) Comment on above: Performed By: #### R UBEO, HBSAB, VARIS, RUBIS #### [facility] [address] [place] [address] LABORATORYOrdered By: Chasity Tinajero on 10-20-2021 ABO [...] Mixed growth consistent with normal urogenital mery. [facility] Work Phone: OBSTETRIC ULTRASOUND WHIon 0 10-18-2021 [facility] No Panel Informationon 10-07 Group B Streptococcus Culture Group B Beta Streptococcus is not isolated. [facility] Work Phone: Basophil percentageon 2021 Basophil percentage 0-5 SEEN /hpf [facility] Work Phone: WBC (Bld) [#/Vol] 8.8 10*3/uL 4.4-11.0 [facility] Work Phone: Bilirubin Test strip Ql (U)o n 10-06-2021 Bilirubin Ql (U) Negative Negative [facility] Work Phone: Blood erythrocytes count (nu mber/volume)on 10-06-2021 RBC (Bld) [#/Vol] 3.35 10*6/uL 4.2-5.4 [facility] Work Phone: Blood hemoglobin measurement (mass/volume)on 10-06-2021 Hemoglobin (Bld) [Mass/Vol] 10.4 g/dL 12.0-15.0 [facility] Work Phone: Blood platelet mean volumeon 10-06-2021 Platelet mean volume (Bld) [Entitic vol] 10.3 fL 6.2-12.0 [facility] Work Phone: Determination of erythrocyte mean corpuscular volume (MCV)on 10-06-2021 MCV (RBC) [Entitic vol] 90.7 fL 81-99 [facility] Work Phone: fibronectinon 10-07-19 22 Fibronectin. (Vag fld) [Mass/Vol] Negative [facility] Work Phone: Hematocrit Auto (Bld) [Volum e fraction]on 10-06-2021 Hematocrit (Bld) [Volume fraction] 30.4 % 37-47 [facility] Work Phone: INR in Blood by Coagulation assayon 10-06-2021 INR Coag (Bld) [Relative time] 1.0 {INR} [facility] Work Phone: Ketones Test strip Ql (U)on 10-06-2021 Ketones Ql (U) Negative Negative [facility] Work Phone: Laboratory - Coagulationon 0 10-06-2021 aPTT Coag (Bld) [Time] 33.3 s 24.1-36.2 [facility] Work Phone: PT Coag (PPP) [Time] 13.0 s 11.7-14.9 [facility] Work Phone: Laboratory - Hematology and Cell countson 10-06-2021 Erythrocyte distribution width (RBC) [Entitic vol] 43.7 fL 35.1-43.9 [facility] Work Phone: Erythrocyte distribution width (RBC) [Ratio] 13.2 % 11.6-14.6 [facility] Work Phone: MCH (RBC) [Entitic mass] 31.0 pg 27.0-32.0 [facility] Work Phone: MCHC Auto (RBC) [Mass/Vol]on 10-06-2021 MCHC (RBC) [Mass/Vol] 34.2 g/dL 32-36 [facility] Work Phone: Mucus LM Ql (Urine sed)on Mucus Ql (Urine sed) 0 SEEN /hpf [facility] Work Phone: Nitrite Test strip Ql (U)on 10-06-2021 Nitrite Ql (U) Negative Negative [facility] Work Phone: No Panel Informationon 10-06 Specimen Comment (Misc) Not Reportable [facility] Work Phone: Fibrinogen 399 mg/dl 203-444 [facility] Work Phone: Platelets bldon 10-06-2021 Platelets (Bld) [#/Vol] 279 10*3/uL 150-450 [facility] Work Phone: Protein Test strip Ql (U)on 10-06-2021 Protein Ql (U) 15 mg/dl Negative [facility] Work Phone: Squamous epithelial cells de tection in urine sediment by light microscopyon 10-06-2021 Epithelial cells.squamous LM Ql (Urine sed) 5-10 SEEN /hpf [facility] Work Phone: Thin prep Papanicolaou smear with manual screeningon 10-06-2021 Thin prep Papanicolaou smear with manual screening Negative Negative [facility] Work Phone: URINE OB DIP B/Oon Glucose Ql (U) Negative Neg mg/dL [facility] Protein.monoclonal (U) [Mass/Vol] trace Neg mg/dL [facility] Urine blood detectionon 09-13 RBC Ql (U) Negative Negative [facility] Work Phone: RBC Ql (U) 0-5 SEEN /hpf [facility] Work Phone: Urine clarityon 10-06-2021 Clarity (U) Clear Clear [facility] Work Phone: Urine color determinationon 10-06-2021 Color (U) Yellow Yellow [facility] Work Phone: Urine glucose detectionon Glucose Ql (U) Normal mg/dl Normal [facility] Work Phone: Urine leukocyte esterase det ection by dipstickon 10-06-2021 Leukocyte esterase Test strip Ql (U) 100 /ul Negative [facility] Work Phone: Urine pHon 10-06-2021 pH (U) 7.0 [pH] [facility] Work Phone: Urine sediment bacteria coun t by microscopy (number/high power field)on 10-06-2021 Bacteria LM.HPF (Urine sed) [#/Area] 0 /[HPF] None Seen [facility] Work Phone: Urine specific gravity measu rementon 10-06-2021 Specific gravity (U) [Rel density] 1.010 [facility] Work Phone: Urobilinogen Auto test strip Ql (U)on 10-06-2021 Urobilinogen Ql (U) Normal mg/dl Normal [facility] Work Phone: LABORATORYOrdered By: Agueda Seo on 09-18-2021 Appearance (U) Cloudy *ABN* (09/18/21 5:17 PM) Invalid Interpretation Code Clear AH Auto [...] Negative AH Auto Urine SS UA pH 6.0 (09/18/21 [...] Catch (09/18/21 5:17 PM) Invalid Interpretation Code AH Auto Urine SS UA Squam Epithelial 3-5 /HPF Invalid Interpretation Code 0-20/HPF AH Auto Urine SS UA Urobilinogen 1.0 E.U./dL Invalid Interpretation Code 0.2-1.0E.U./dL AH Auto Urine SS WBC LM.HPF (Urine sed) [#/Area] 5-10 /HPF Invalid Interpretation Code 0-5/HPF AH Auto Urine SS UAon 09-18-2021 Color (U) Dark Yellow Normal [facility] ([place]) Comment on above: Performed By: #### R UBEO, HBSAB, VARIS, RUBIS #### [address] [address] Glucose (U) [Mass/Vol] Negative Normal Negative [facility] ([place]) Comment on above: Performed By: #### R DAVISEYanni HBSAB, VARIS, RUBIS #### [address] [address] Ketones Ql (U) Trace Normal Neg-Trace [facility] ([place]) Comment on above: Performed By: #### R UBEO, HBSAB, VARIS, RUBIS #### [place] [address] UA Appear Cloudy Abnormal Clear [facility] ([place]) Comment on above: Performed By: #### R UBEO, HBSAB, VARIS, RUBIS #### [address] [address] UA Blood Negative Normal Neg-Trace [facility] ([place]) Comment on above: Performed By: #### R UBEO, HBSAB, VARIS, RUBIS #### [place] [address] UA Leuk Est Moderate Abnormal Negative [facility] ([place]) Comment on above: Performed By: #### R UBEO, HBSAB, VARIS, RUBIS #### [address] [address] UA Nitrite Negative Normal Negative [facility] ([place]) Comment on above: Performed By: #### R UBEO, HBSAB, VARIS, RUBIS #### [place] [address] UA pH 6.0 Normal 5.0 - 8.0 [facility] ([place]) Comment on above: Performed By: #### R UBEO, HBSAB, VARIS, RUBIS #### [address] [address] UA Protein Trace Normal Negative [facility] ([place]) Comment on above: Performed By: #### R UBEO, HBSAB, VARIS, RUBIS #### [place] [address] UA Spec Grav >=1.030 Abnormal 1.006-1.029 [facility] ([place]) Comment on above: Performed By: #### R UBEYanni HBSAB VARIS RUBFRANK #### [address] [address] UA Specimen Type Clean Catch Normal [facility] ([place]) Comment on above: Performed By: #### R UBEYanni HBSAB VARIS RUBIS #### [place] [address] UA Urobilinogen 1.0 E.U./dL Normal 0.2-1.0 [facility] ([place]) Comment on above: Performed By: #### R DAVISEYanni HBSAB VARIS RUBFRANK #### [place] [address] Urobilinogen (U) [Mass/Vol] Negative Normal Neg-Trace [facility] ([place]) Comment on above: Performed By: #### R UBEO HBSAB VARIS RUBIS #### [place] [address] UAMICon 09-18-2021 UA Bacteria 1+ /hpf Abnormal Negative [facility] ([place]) Comment on above: Performed By: #### R UBEO HBSAB VARIS RUBIS #### [place] [id number] UA CA Ox Crystal 1+ /hpf Normal [facility] ([place]) Comment on above: Performed By: #### R UBEO HBSAB VARIS RUBIS #### [address] [address] UA Mucous Trace Normal [facility] ([place]) Comment on above: Performed By: #### R UBEO, HBSAB, VARIS, RUBIS #### [address] [address] UA RBC Negative Normal 0-2 [facility] ([place]) Comment on above: Performed By: #### R UBEO, HBSAB, VARIS RUBIS #### [place] [address] UA Squam Epithelial 3-5 Normal 0-20 [facility] ([place]) Comment on above: Performed By: #### R UBEO, HBSAB, VARIS, RUBIS #### [address] [address] UA WBC 5-10 Abnormal 0-5 [facility] ([place]) Comment on above: Performed By: #### R UBEO, HBSAB, VARIS, RUBIS #### [facility] [address] [place] [address] CBCon 08-29-2021 BASO# 0.00 x10(3) Normal 0.00-0.10 [facility] Comment on above: Performed By: #### L 200.0010 #### ML - LABORATORY [address] [place] [address] Basophils/100 WBC (Bld) 0.1 % Normal 0.0-1.0 [facility] Comment on above: Performed By: #### L 200.0010 #### ML [facility] [address] [place] [address] EOS# 0.10 x10(3) Normal 0.00-0.54 [facility] Comment on above: Performed By: #### L 200.0010 #### ML [facility] [address] [place] [address] Eosinophils/100 WBC (Bld) 1.9 % Normal 0.5-4.9 [facility] Comment on above: Performed By: #### L 200.0010 #### [facility] - LAB[facility]ATORY [address] [place] [address] Erythrocyte distribution width (RBC) [Ratio] 13.3 % Normal 12.5-15.7 [facility] Comment on above: Performed By: #### L 200.0010 #### ML [facility] [address] [place] [address] Hematocrit (Bld) [Volume fraction] 29.4 % Low 36.0-48.0 [facility] Comment on above: Performed By: #### L 200.0010 #### [facility] - [facility]ATORY [address] [place] [address] Hemoglobin (Bld) [Mass/Vol] 9.8 g/dL Low 12.0-16.0 [facility] Comment on above: Performed By: #### L 200.0010 #### [facility] [address] [place] [address] LYMPH# 1.40 x10(3) Normal 1.00-3.50 [facility] Comment on above: Performed By: #### L 200.0010 #### ML [facility] [address] [place] [address] Lymphocytes/100 WBC (Bld) 23.8 % Normal 16.0-48.0 [facility] Comment on above: Performed By: #### L 200.0010 #### ML [facility] [address] [place] [address] MCH (RBC) [Entitic mass] 29.8 pg Normal 28.5-32.9 [facility] Comment on above: Performed By: #### L 200.0010 #### [facility] [address] [place] [address] MCHC (RBC) [Mass/Vol] 33.3 g/dL Normal 33.0-36.0 [facility] Comment on above: Performed By: #### L 200.0010 #### [facility] [address] [place] [address] MCV (RBC) [Entitic vol] 89.5 fL Normal 80.0-99.0 [facility] Comment on above: Performed By: #### L 200.0010 #### ML [facility] [address] [place] [address] MONO# 0.40 x10(3) Normal 0.30-0.80 [facility] Comment on above: Performed By: #### L 200.0010 #### [facility] [address] [place] [address] Monocytes/100 WBC (Bld) 7.4 % Normal 4.3-11.2 [facility] Comment on above: Performed By: #### L 200.0010 #### [facility] [address] [place] [address] NEUT# 3.90 x10(3) Normal 1.40-6.50 [facility] Comment on above: Performed By: #### L 200.0010 #### [facility] [address] [place] [address] Neutrophils/100 WBC (Bld) 66.8 % Normal 45.0-73.0 [facility] Comment on above: Performed By: #### L 200.0010 #### [facility] - [facility]ATORY [address] [place] [address] Platelet mean volume (Bld) [Entitic vol] 7.9 fL Normal 7.5-9.5 [facility] Comment on above: Performed By: #### L 200.0010 #### [facility] [address] [place] [address] PLT 212 X10(3) Normal 150-450 [facility] Comment on above: Performed By: #### L 200.0010 #### [facility] [address] [place] [address] RBC 3.28 x10(6) Low 3.30-5.00 [facility] Comment on above: Performed By: #### L 200.0010 #### [facility] [address] [place] [address] WBC 5.9 x10(3) Normal 4.5-10.0 [facility] Comment on above: Performed By: #### L 200.0010 #### [facility] [address] [place] [address] CMPon 08-29-2021 ALT [Catalytic activity/Vol] U/L Low 5-33 [facility] Comment on above: Performed By: #### L 100.0005 #### ML - [facility]AT[facility] [address] [place] [address] [id number] A:G RATIO 1.14 Normal 1.1-2.5 [facility] Comment on above: Performed By: #### L 100.0005 #### ML [facility] [address] [place] [address] [phone] Albumin [Mass/Vol] 3.1 g/dL Low 3.5-5.2 [facility] Comment on above: Performed By: #### L 100.0005 #### [facility] - [facility]AT[facility] [address] [place] [id number] ALK. PHOS 81 U/L Normal 35-105 [facility]ly [facility] Comment on above: Performed By: #### L 100.0005 #### [facility] - LABORATORY [address] [place] [address] 80275 Anion gap [Moles/Vol] 12.5 mmol/L Low 15-22 [facility] Comment on above: Performed By: #### L 100.0005 #### [facility] - LABORATORY [address] [place] [address] 37817 AST [Catalytic activity/Vol] 17 U/L Normal 5-32 [facility] Comment on above: Performed By: #### L 100.0005 #### [facility] - LABORATORY [address] [place] [address] 96828 Bilirubin [Mass/Vol] 0.3 mg/dL Normal 0.2-1.2 [facility] Comment on above: Performed By: #### L 100.0005 #### [facility] - LABORATORY [address] [place] [address] 70735 Calcium [Mass/Vol] 8.2 mg/dL Low 8.6-10.0 [facility] Comment on above: Performed By: #### L 100.0005 #### [facility] - LABORATORY [address] [place] [address] 82484 Chloride [Moles/Vol] 99 mmol/L Normal 98-107 [facility] Comment on above: Performed By: #### L 100.0005 #### [facility] - LABORATORY [address] [place] [address] 94622 CO2 [Moles/Vol] 25 mmol/L Normal 22-29 [facility] Comment on above: Performed By: #### L 100.0005 #### ML - LABORATORY [address] [place] [address] 16437 Creatinine [Mass/Vol] 0.40 mg/dL Low 0.50-0.90 [facility] Comment on above: Performed By: #### L 100.0005 #### ML - LABORATORY [address] [place] [address] [place] [address] eGFR if AFR HANSA > 60 ml/min/1.73m2 Normal U [facility] Comment on above: Result Comment: eGFR >= [...] (www.nkdep.nih.gov). Performed By: #### L 100.0005 #### [facility] [address] [place] [address] 61757 eGFR nonAFR Hansa > 60 ml/Min/1.73m2 Normal U [facility] Comment on above: Performed By: #### L 100.0005 #### ML [facility] [address] [place] [address] 62271 Globulin (S) [Mass/Vol] 2.7 g/dL Normal 1.5-4.5 [facility] Comment on above: Performed By: #### L 100.0005 #### [facility] [address] [place] [address] 13625 Glucose [Mass/Vol] 85 mg/dL Normal 74-106 [facility] Comment on above: Performed By: #### L 100.0005 #### [facility] [address] [place] [address] 57426 Potassium [Moles/Vol] 3.5 mmol/L Normal 3.5-5.0 [facility] Comment on above: Performed By: #### L 100.0005 #### [facility] [address] [place] [address] 73166 Protein [Mass/Vol] 5.8 g/dL Low 6.4-8.3 [facility] Comment on above: Performed By: #### L 100.0005 #### [facility] [address] [place] [address] Sodium [Moles/Vol] 133 mmol/L Low 135-145 [facility] Comment on above: Performed By: #### L 100.0005 #### [facility] - [facility] [address] [place] [address] Urea nitrogen [Mass/Vol] 8 mg/dL Normal 6-20 [facility] Comment on above: Performed By: #### L 100.0005 #### [facility] - [facility] [address] [place] [address] ED REPORTon 08-29-2021 [place] [address] HEALTH INFORMATION MANAGEMENT EMERGENCY DEPARTMENT REPORT Patient: MARZENA PICKERING ANTOINE YOUNG as dictated by MARIA A BENNETT [phone] F Status: DEP ER ED [...] very similar to this. 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 Her meter repair shop supervisor recommended her to come in and get [...] . 3. Pelvic cramping. Report#: Dict ID [id number] / Int ID [id number] 09/01/212036 ANTOINE WALKERC cc: ANTOINE WALKER; No Physician << Signature on File>> Reported By: ANTOINE WALKER Signed By: ANTOINE WALKER Tests performed at: [place] [address] Normal [facility] URINALYSISon 08-29-2021 Bilirubin Ql (U) Negative Normal NEGATIVE [facility] Comment on above: Performed By: #### L 200.3000 #### ML [facility] [address] [place] [address] 76343 Color (U) YELLOW Normal YELLOW [facility] Comment on above: Performed By: #### L 200.3000 #### ML [facility] [address] [place] [address] 41948 Glucose Ql (U) Negative Normal NEGATIVE [facility] Comment on above: Performed By: #### L 200.3000 #### ML [facility] [address] [place] [address] 81909 Hemoglobin Ql (U) Negative Normal NEGATIVE [facility] Comment on above: Performed By: #### L 200.3000 #### [facility] - LABORATORY [address] [place] [address] 38305 Leukocyte esterase Test strip Ql (U) Negative Normal NEGATIVE [facility] Comment on above: Performed By: #### L 200.3000 #### [facility] - [facility]AT[facility] [address] [place] [address] 45938 Nitrite Ql (U) Negative Normal NEGATIVE [facility] Comment on above: Performed By: #### L 200.3000 #### [facility] - LABORATORY [address] [place] [address] 06283 pH (U) 6.5 [pH] Normal 5.0-8.0 [facility] Comment on above: Performed By: #### L 200.3000 #### [facility] - [facility]ATORY [address] [place] [address] 26895 Protein Ql (U) Negative Normal NEGATIVE [facility] Comment on above: Performed By: #### L 200.3000 #### [facility] - [facility] [address] [place] [address] 87442 URINE APPEARANC CLEAR Normal CLEAR [facility] Comment on above: Performed By: #### L 200.3000 #### [facility] - LABORATORY [address] [place] [address] 68814 URINE KETONE Negative Normal NEGATIVE [facility] Comment on above: Performed By: #### L 200.3000 #### [facility] - LABORATORY [address] [place] [address] 26008 URINE SPECIFIC 1.010 Normal 1.001-1.035 [facility] Comment on above: Performed By: #### L 200.3000 #### [facility] - LAB[facility]ATORY [address] [place] [address] 94218 URINE UROBILINO 0.2 EU/DL Normal 0.2-1.0 [facility] Comment on above: Performed By: #### L 200.3000 #### [facility] - LABORATORY [address] [place] [address] 69852 SARS-CoV-2 (COVID-19) RT-PCR on 08-12-2021 SARS-CoV-2 (COVID-19) RNA NIGHAT+probe Ql (Unsp spec) Negative Normal [facility] Comment on above: Order Comment: Relea se to patient->Automatic 85868&Nasal swab Result Comment: NEGA TIVE: SARS-CoV-2 RNA [...] Nancy SARS-CoV-2 assay on the Bert[employer] Nancy Pelikon0 System. - Comment: This test has received FDA Emergency Use Authorization (EUA) and has been verified by [facility]. This test is only authorized for [...] at the following links: For Healthcare Providers: www.fda.gov/media/669467/download For Patients: www.fda.gov/media/182816/download - Reference Value: Negative Performed By: #### C OVID #### [facility] [address] [place], [place] [id number] NANCY SARS CoV-2 RT PCR Not detected Normal [facility] Comment on above: Order Comment: Relea se to patient->Automatic 32649&Nasal swab Performed By: #### C OVID #### [address] [id number] SARS-CoV-2 (COVID-19) RT-PCR on 08-11-2021 Hospitalized? No Normal [facility] Comment on above: Order Comment: Relea se to patient->Automatic 21909&Nasal swab Performed By: #### C OVID #### [address] [address] ICU? No Normal [facility] Comment on above: Order Comment: Relea se to patient->Automatic 17923&Nasal swab Performed By: #### C OVID #### [address] [address] ? Unknown Normal [facility] Comment on above: Order Comment: Relea se to patient->Automatic 02980&Nasal swab Performed By: #### C OVID #### [address] [address] Resident in congregate care setting? No Normal [facility] Comment on above: Order Comment: Relea se to patient->Automatic 65399&Nasal swab Performed By: #### C OVID #### [address] [address] SARS-CoV-2 (COVID-19) RT-PCR on 08-04-2021 SARS-CoV-2 (COVID-19) RNA NIGHAT+probe Ql (Unsp spec) Negative [facility] Comment on above: Order Comment: Relea se to patient->Automatic 32601&Nasal swab Result Comment: NEGA TIVE: SARS-CoV-2 RNA [...] the Nancy SARS-CoV-2 assay on the Bert[employer] Nnacy 6800 System. - Comment: This test has received FDA Emergency Use Authorization (EUA) and has been verified by [facility]. This test is only authorized for [...] at the following links: For Healthcare Providers: www.fda.gov/media/576199/download For Patients: www.fda.gov/media/594174/download - Reference Value: Negative Performed By: #### C OVID #### [place] [address] NANCY SARS CoV-2 RT PCR Not detected Normal [facility] Comment on above: Order Comment: Relea se to patient->Automatic 90439&Nasal swab Performed By: #### C OVID #### [address] [address] SARS-CoV-2 (COVID-19) RT-PCR on 08-03-2021 Hospitalized? No Normal [facility] Comment on above: Order Comment: Relea se to patient->Automatic 71336&Nasal swab Performed By: #### C OVID #### [address] [address] ICU? No Normal [facility] Comment on above: Order Comment: Relea se to patient->Automatic 48935&Nasal swab Performed By: #### C OVID #### [address] [address] ? Unknown Normal [facility] Comment on above: Order Comment: Relea se to patient->Automatic 27116&Nasal swab Performed By: #### C OVID #### [address] [address] Resident in congrega care setting? No Normal [facility] Comment on above: Order Comment: Relea se to patient->Automatic 27009&Nasal swab Performed By: #### C OVID #### [address] [address] RUBEOon 07-28-2021 Rubeola IgG Ab Positive Normal [facility] (ID) Comment on above: Result Comment: INTE RPRETATION OF RUBEOLA (MEASLES) IGG BY EIA: Negative Nonreactive (Negative) for anti-Rubeola IgG. Presumed non-immune to measles virus. Positive Reactive (Positive) for anti-Rubeola IgG. Presumed immune to measles virus. Equivocal Repeat testing if still indicated. Performed By: #### R UBEO, HBSAB, VARIS, RUBIS #### [place] [address] RUBISon 07-28-[address] Positive Normal Positive [facility] (ID) Comment on above: Result Comment: This immune status assay detects IgM and/or IgG antibody to Rubella. Interpret results in conjunction with clinical history. POS: Antibody detected; exposure at undetermined recent or distant time. If clinically indicated, order Rubella IGM to rule out recent infection. NEG: No antibody detected. Performed By: #### R UBEO, HBSAB, VARIS, RUBIS #### [address] [address] VARISon 07-28-[address] Positive Normal [facility] (ID) Comment on above: Result Comment: This immune [...] to Varicella IgG. Performed By: #### R DAVISEO, HBSABSANA RUBIS #### [address] [address] HBSABon 07-27-2021 Hep B Surf Ab >97313.0 Normal >=10.0 [facility] (ID) Comment on above: Result Comment: 0 to [...] International Reference Preparation. Performed By: #### R DAVISEO, HBSABSANA RUBIS #### [address] [address] SARS-CoV-2 (COVID-19) RT-PCR on 07-27-2021 SARS-CoV-2 (COVID-19) RNA NIGHAT+probe Ql (Unsp spec) Negative Normal [facility] Comment on above: Order Comment: Relea se to patient->Automatic 48418&Nasal swab Result Comment: NEGA TIVE: SARS-CoV-2 RNA [...] Nancy SARS-CoV-2 assay on the [employer] Nancy Pelikon0 System. - Comment: This test has received FDA Emergency Use Authorization (EUA) and has been verified by [facility]. This test is only authorized for [...] at the following links: For Healthcare Providers: www.fda.gov/media/609806/download For Patients: www.fda.gov/media/347773/download - Reference Value: Negative Performed By: #### C OVID #### [place] [address] NANCY SARS CoV-2 RT PCR Not detected Normal [facility] Comment on above: Order Comment: Relea se to patient->Automatic 85503&Nasal swab Performed By: #### C OVID #### [address] [address] SARS-CoV-2 (COVID-19) RT-PCR on 07-25-2021 Hospitalized? No Normal [facility] Comment on above: Order Comment: Relea se to patient->Automatic 68790&Nasal swab Performed By: #### C OVID #### [address] [address] ICU? No Normal [facility] Comment on above: Order Comment: Relea se to patient->Automatic 34833&Nasal swab Performed By: #### C OVID #### [address] [address] ? Unknown Normal [facility] Comment on above: Order Comment: Relea se to patient->Automatic 93115&Nasal swab Performed By: #### C OVID #### [address] [address] Resident in congregate care setting? No Normal [facility] Comment on above: Order Comment: Relea se to patient->Automatic 11896&Nasal swab Performed By: #### C OVID #### [address] [address] SARS-CoV-2 (COVID-19) RT-PCR on 07-14-2021 SARS-CoV-2 (COVID-19) RNA NIGHAT+probe Ql (Unsp spec) Negative Normal [facility] Comment on above: Order Comment: Relea se to patient->Automatic 88119&Nasal swab Result Comment: NEGA TIVE: SARS-CoV-2 RNA [...] Nancy SARS-CoV-2 assay on the [employer] Nancy Pelikon0 System. - Comment: This test has received FDA Emergency Use Authorization (EUA) and has been verified by [facility]. This test is only authorized for [...] at the following links: For Healthcare Providers: www.[employer].gov/media/097819/download For Patients: www.[employer].gov/media/947778/download - Reference Value: Negative Performed By: #### C OVID #### [place] [address] NANCY SARS CoV-2 RT PCR Not detected Normal [facility] Comment on above: Order Comment: Relea se to patient->Automatic 22804&Nasal swab Performed By: #### C OVID #### [place] [address] SARS-CoV-2 (COVID-19) RT-PCR on 07-12-2021 Hospitalized? No Normal [facility] Comment on above: Order Comment: Relea se to patient->Automatic 69472&Nasal swab Performed By: #### C OVID #### [place] [address] ICU? No Normal [facility] Comment on above: Order Comment: Relea se to patient->Automatic 57853&Nasal swab Performed By: #### C OVID #### [place] [address] ? Unknown Normal [facility] Comment on above: Order Comment: Relea se to patient->Automatic 00213&Nasal swab Performed By: #### C OVID #### [facility] [address] [place] [address] Resident in congregate care setting? No Normal [facility] Comment on above: Order Comment: Relea se to patient->Automatic 69931&Nasal swab Performed By: #### C OVID #### [facility] [address] [place] [address] SARS-CoV-2 (COVID-19) RT-PCR on 06-19-2021 SARS-CoV-2 (COVID-19) RNA NIGHAT+probe Ql (Unsp spec) Negative Normal [facility] Comment on above: Order Comment: Relea se to patient->Automatic 33984&Nasal swab Result Comment: NEGA TIVE: SARS-CoV-2 RNA [...] Nancy SARS-CoV-2 assay on the [employer] Nancy Pelikon0 System. - Comment: This test has received FDA Emergency Use Authorization (EUA) and has been verified by [facility]. This test is only authorized for [...] at the following links: For Healthcare Providers: www.[employer].gov/media/694871/download For Patients: www.[employer].gov/media/104419/download - Reference Value: Negative Performed By: #### C OVID #### [place] [address] NANCY SARS CoV-2 RT PCR Not detected Normal [facility] Comment on above: Order Comment: Relea se to patient->Automatic 90719&Nasal swab Performed By: #### C OVID #### [place] [address] Hospitalized? No Normal [facility] Comment on above: Order Comment: Relea se to patient->Automatic 92405&Nasal swab Performed By: #### C OVID #### [place] [address] ICU? No Normal [facility] Comment on above: Order Comment: Relea se to patient->Automatic 08518&Nasal swab Performed By: #### C OVID #### [place] [address] ? Unknown Normal [facility] Comment on above: Order Comment: Relea se to patient->Automatic 20378&Nasal swab Performed By: #### C OVID #### [place] [address] Resident in congregate care setting? No Normal [facility] Comment on above: Order Comment: Relea se to patient->Automatic 24770&Nasal swab Performed By: #### C OVID #### [place] [address] SARS-CoV-2 (COVID-19) RT-PCR on 06-07-2021 SARS-CoV-2 (COVID-19) RNA NIGHAT+probe Ql (Unsp spec) Negative Normal [facility] Comment on above: Order Comment: Relea se to patient->Automatic 17122&Nasal swab Result Comment: NEGA TIVE: SARS-CoV-2 RNA [...] Authorization (EUA) and has been verified by [facility] [place]. This test is only authorized for the [...] at the following links: For Healthcare Providers: www.fda.gov/media/216745/download For Patients: www.fda.gov/media/148950/download - Reference Value: Negative Performed By: #### C OVID #### [address] [address] NANCY SARS CoV-2 RT PCR Not detected [facility] Comment on above: Order Comment: Relea se to patient->Automatic 36268&Nasal swab Performed By: #### C OVID #### [address] [address] Hospitalized? No Normal [facility] Comment on above: Order Comment: Relea se to patient->Automatic 61513&Nasal swab Performed By: #### C OVID #### [address] [address] ICU? No Normal [facility] Comment on above: Order Comment: Relea se to patient->Automatic 08733&Nasal swab Performed By: #### C OVID #### [address] [address] ? Unknown Normal [facility] Comment on above: Order Comment: Relea se to patient->Automatic 08622&Nasal swab Performed By: #### C OVID #### [address] [address] Resident in congregate care setting? No Normal [facility] Comment on above: Order Comment: Relea se to patient->Automatic 41834&Nasal swab Performed By: #### C OVID #### [address] [address] SARS-CoV-2 (COVID-19) RT-PCR on 06-01-2021 SARS-CoV-2 (COVID-19) RNA NIGHAT+probe Ql (Unsp spec) Negative [facility] Comment on above: Order Comment: Relea se to patient->Automatic 76468&Nasal swab Result Comment: NEGA TIVE: SARS-CoV-2 RNA [...] Nancy SARS-CoV-2 assay on the [employer] Nancy Pelikon0 System. - Comment: This test has received FDA Emergency Use Authorization (EUA) and has been verified by [facility]. This test is only authorized for [...] at the following links: For Healthcare Providers: www.fda.gov/media/248924/download For Patients: www.fda.gov/media/522585/download - Reference Value: Negative Performed By: #### C OVID #### [address] [id number] NANCY SARS CoV-2 RT PCR Not detected Normal [facility] Comment on above: Order Comment: Relea se to patient->Automatic 33900&Nasal swab Performed By: #### C OVID #### [address] [id number] SARS-CoV-2 (COVID-19) RT-PCR on 05-31-2021 Hospitalized? No Normal [facility] Comment on above: Order Comment: Relea se to patient->Automatic 35603&Nasal swab Performed By: #### C OVID #### [address] [address] ICU? No Normal [facility] Comment on above: Order Comment: Relea se to patient->Automatic 64855&Nasal swab Performed By: #### C OVID #### [address] [address] ? Unknown Normal [facility] Comment on above: Order Comment: Relea se to patient->Automatic 15228&Nasal swab Performed By: #### C OVID #### [address] [address] Resident in congregate care setting? No Normal [facility] Comment on above: Order Comment: Relea se to patient->Automatic 52405&Nasal swab Performed By: #### C OVID #### [address] [address] SARS-CoV-2 (COVID-19) RT-PCR on 05-18-2021 SARS-CoV-2 (COVID-19) RNA NIGHAT+probe Ql (Unsp spec) Negative [facility] Comment on above: Order Comment: Relea se [...] Authorization (EUA) and has been verified by [facility]. This test is only authorized for [...] at the following links: For Healthcare Providers: www.fda.gov/media/026398/download For Patients: www.fda.gov/media/381933/download - Reference Value: Negative Performed By: #### C OVID #### [address] [address] NANCY SARS CoV-2 RT PCR Not detected Normal [facility] Comment on above: Order Comment: Relea se to patient->Automatic Performed By: #### C OVID #### [address] [id number] SARS-CoV-2 (COVID-19) RT-PCR on 05-17-2021 Hospitalized? No Normal [facility] Comment on above: Order Comment: Relea se to patient->Automatic Performed By: #### C OVID #### [address] [id number] ICU? No Normal [facility] Comment on above: Order Comment: Relea se to patient->Automatic Performed By: #### C OVID #### [address] [id number] ? Unknown Normal [facility] Comment on above: Order Comment: Relea se to patient->Automatic Performed By: #### C OVID #### [address] [address] Resident in congregate care setting? No Normal [facility] Comment on above: Order Comment: Relea se to patient->Automatic Performed By: #### C OVID #### [address] [address] ROUTINE COVIDon 04-24-2021 SARS-CoV-2 (COVID-19) RNA NIGHAT+probe Ql (Unsp spec) Positive Invalid Interpretation Code NEGATIVE [facility] Comment on above: Order Comment: Campu s: [...] PUI TO TUSC Performed By: #### L 770.85128 #### [facility] [address] [place] [address] # [phone] CSon 04-22-2021 [facility] REPORT Normal [facility] DATE OF SERVICE: 04/22/2021 HISTORY OF PRESENT ILLNESS: Patient is a 31-year-old white female who presents to the clinic with positive COVID exposure. 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 She has a headache, weakness and congestion. [...] or wheezing. Abdomen: Positive bowel sounds x4 [facility] PATIENT NAME: MARZENA PICKERING [facility] REC #: [id number] [place], [place] ADMIT DATE: [facility] quad[facility]. Negative masses or tenderness on palpation. Negative organomegaly. Extremities: Negative clubbing, cyanosis or edema. Negative deformity. DIAGNOSIS: Probable COVID. PLAN: Patient is COVID PCR swabbed and told to self quarantine until she gets her results back. She is given Keflex 500 mg, No. 30, one p.o. t.i.d., no refills. 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 Tylenol for any fever or sore throat pain. She was given a note for work that she is to self quarantine until she does get her results back. Return to clinic if any other issues. Bradford Mario DO /[id number] SSI File#: [id number] [facility] PATIENT NAME: MARZENA PICKERING [facility] REC #: [id number] [facility] ID ADMIT DATE: [facility] REPORT [facility] PHYSICIAN END OF DOCUMENT / CHANGE LOG FOLLOWS Last Edited By Rupali. Signed By Bradford Mario DO #Bradford Galdamez DO #RUSS on 04/26/2021 07:45 ET on 04/26/2021 07:45 ET Revision Number - 2 Verified/Reviewed by 04/26/21 0745 RUSS [facility] PATIENT NAME: MARZENA PICKERING [facility] REC #: [id number] KAJAL Mena ADMIT DATE: [facility] REPORT [facility] PHYSICIAN [facility] Vital Signs Date Time Vital Sign Value Performing Clinician Facility 03-29-2025 07:25-040 Heart rate 64 /min No Primary Care Physician [facility] 03-29-2025 07:25-0400 SaO2% (BldA) [Mass fraction] 99 % No Primary Care Physician [facility] 03-29-2025 07:24-0400 Body temperature 97.7 [degF] No Primary Care Physician [facility] 03-29-2025 07:24-0400 Diastolic blood pressure 59 mm[Hg] No Primary Care Physician [facility] 03-29-2025 07:24-0400 Respiratory rate 16 /min No Primary Care Physician [facility] 03-29-2025 07:24-0400 Systolic blood pressure 105 mm[Hg] No Primary Care Physician [facility] [facility] 03-29-2025 00:13-0400 Body height 162.56 cm No Primary Care Physician [facility] 03-29-2025 00:13-0400 Body mass index (BMI) [Ratio] 18.6 kg/m2 No Primary Care Physician [facility] 03-29-2025 00:13-0400 Body weight 49.1 kg No Primary Care Physician [facility] 03-17-2025 20:43-0400 Body temperature 97.5 [degF] No Primary Care Physician [facility] 03-17-2025 20:43-0400 Diastolic blood pressure 79 mm[Hg] No Primary Care Physician [facility] 03-17-2025 20:43-0400 Heart rate 79 /min No Primary Care Physician [facility] 03-17-2025 20:43-0400 Respiratory rate 14 /min No Primary Care Physician [facility] 03-17-2025 20:43-0400 SaO2% (BldA) [Mass fraction] 98 % No Primary Care Physician [facility] 03-17-2025 20:43-0400 Systolic blood pressure 125 mm[Hg] No Primary Care Physician [facility] 03-17-2025 20:40-0400 Body height 162.56 cm No Primary Care Physician [facility] 03-17-2025 20:40-0400 Body mass index (BMI) [Ratio] 31.3 kg/m2 No Primary Care Physician [facility] 03-17-2025 20:40-0400 Body weight 82.8 kg No Primary Care Physician [facility] 03-05-2025 14:20-0400 Body mass index (BMI) [Ratio] 30.04 kg/m2 Marlee Almanza APRN.CNM Work Phone: [facility] 03-05-2025 14:20-0400 Body weight 79.38 kg Marlee Almanza PRODUCT REPRESENTATIVE.CNM Work Phone: [facility] 03-05-2025 14:20-0400 Diastolic blood pressure 64 mm[Hg] Marlee Almanza PRODUCT REPRESENTATIVE.CNM Work Phone: [facility] 03-05-2025 14:20-0400 Systolic blood pressure 96 mm[Hg] Marlee Almanza PRODUCT REPRESENTATIVE.CNM Work Phone: [facility] 02-11-2025 09:13-0400 Body mass index (BMI) [Ratio] 29.87 kg/m2 Marlee Almanza PRODUCT REPRESENTATIVE.CNM Work Phone: [facility] 02-11-2025 09:13-0400 Body weight 78.93 kg Marlee Almanza PRODUCT REPRESENTATIVE.CNM Work Phone: [facility] 02-11-2025 09:13-0400 Diastolic blood pressure 60 mm[Hg] Marlee Almanza PRODUCT REPRESENTATIVE.CNM Work Phone: [facility] 02-11-2025 09:13-0400 Systolic blood pressure 96 mm[Hg] Marlee Almanza PRODUCT REPRESENTATIVE.CNM Work Phone: [facility] 01-25-2025 13:32-0400 Body mass index (BMI) [Ratio] 29.87 kg/m2 Marlee Almanza PRODUCT REPRESENTATIVE.CNM Work Phone: [facility] 01-25-2025 13:32-0400 Body weight 78.93 kg Marlee Almanza PRODUCT REPRESENTATIVE.CNM Work Phone: [facility] 01-25-2025 13:32-0400 Diastolic blood pressure 64 mm[Hg] Marlee Almanza PRODUCT REPRESENTATIVE.CNM Work Phone: [facility] 01-25-2025 13:32-0400 Systolic blood pressure 96 mm[Hg] Marlee Almanza PRODUCT REPRESENTATIVE.CNM Work Phone: [facility] 12-30-2024 13:06-0400 Body mass index (BMI) [Ratio] 27.42 kg/m2 Marlee Almanza PRODUCT REPRESENTATIVE.CNM Work Phone: [facility] 12-30-2024 13:06-0400 Body weight 74.75 kg Marlee Almanza PRODUCT REPRESENTATIVE.CNM Work Phone: [facility] 12-30-2024 13:06-0400 Diastolic blood pressure 60 mm[Hg] Marlee Almanza PRODUCT REPRESENTATIVE.CNM Work Phone: [facility] 12-30-2024 13:06-0400 Systolic blood pressure 100 mm[Hg] Marlee Archie PRODUCT REPRESENTATIVE.CNM Work Phone: [facility] 11-03-2024 14:23-0400 Body mass index (BMI) [Ratio] 24.79 kg/m2 Marlee Archie PRODUCT REPRESENTATIVE.CNM Work Phone: [facility] 11-03-2024 14:23-0400 Body weight 67.59 kg Marlee Archie PRODUCT REPRESENTATIVE.CNM Work Phone: [facility] 11-03-2024 14:23-0400 Diastolic blood pressure 64 mm[Hg] Marlee Almanza PRODUCT REPRESENTATIVE.CNM Work Phone: [facility] 11-03-2024 14:23-0400 Systolic blood pressure 110 mm[Hg] Marlee Almanza PRODUCT REPRESENTATIVE.CNM Work Phone: [facility] 10-06-2024 11:19-0400 Body mass index (BMI) [Ratio] 23.46 kg/m2 Marlee Archie PRODUCT REPRESENTATIVE.CNM Work Phone: [facility] 10-06-2024 11:19-0400 Body weight 63.96 kg Marlee Archie PRODUCT REPRESENTATIVE.CNM Work Phone: [facility] 10-06-2024 11:19-0400 Diastolic blood pressure 68 mm[Hg] Marlee Almanza PRODUCT REPRESENTATIVE.CNM Work Phone: [facility] 10-06-2024 11:19-0400 Systolic blood pressure 102 mm[Hg] Marlee Almanza PRODUCT REPRESENTATIVE.CNM Work Phone: [facility] 09-08-2024 12:57-0500 Body height 165.1 cm Marlee Almanza PRODUCT REPRESENTATIVE.CNM Work Phone: [facility] 09-08-2024 12:57-0500 Body mass index (BMI) [Ratio] 22.8 kg/m2 Marlee Almanza PRODUCT REPRESENTATIVE.CNM Work Phone: [facility] 09-08-2024 12:57-0500 Body weight 62.14 kg Marlee Almanza PRODUCT REPRESENTATIVE.CNM Work Phone: [facility] 09-08-2024 12:57-0500 Diastolic blood pressure 60 mm[Hg] Marlee Almanza PRODUCT REPRESENTATIVE.CNM Work Phone: [facility] 09-08-2024 12:57-0500 Systolic blood pressure 118 mm[Hg] Marlee Almanza PRODUCT REPRESENTATIVE.CNM Work Phone: [facility] 09-01-2024 17:49-0500 Body mass index (BMI) [Ratio] 23.08 kg/m2 Arianna Ledger PRODUCT REPRESENTATIVE.AGRICULTURAL ECONOMICS PROFESSOR Work Phone: [facility] 09-01-2024 17:49-0500 Body temperature 99.1 [degF] Arianna Ledger PRODUCT REPRESENTATIVE.AGRICULTURAL ECONOMICS PROFESSOR Work Phone: [facility] 09-01-2024 17:49-0500 Body weight 61 kg Arianna Ledger PRODUCT REPRESENTATIVE.AGRICULTURAL ECONOMICS PROFESSOR Work Phone: [facility] 09-01-2024 17:49-0500 Diastolic blood pressure 71 mm[Hg] Arianna Ledger PRODUCT REPRESENTATIVE.AGRICULTURAL ECONOMICS PROFESSOR Work Phone: [facility] 09-01-2024 17:49-0500 Heart rate 74 /min Arianna Ledger PRODUCT REPRESENTATIVE.AGRICULTURAL ECONOMICS PROFESSOR Work Phone: [facility] 09-01-2024 17:49-0500 Respiratory rate 16 /min Arianna Ledger PRODUCT REPRESENTATIVE.AGRICULTURAL ECONOMICS PROFESSOR Work Phone: [facility] 09-01-2024 17:49-0500 SaO2% (BldA) [Mass fraction] 99 % Arianna Ledger PRODUCT REPRESENTATIVE.AGRICULTURAL ECONOMICS PROFESSOR Work Phone: [facility] 09-01-2024 17:49-0500 Systolic blood pressure 109 mm[Hg] Arianna Millanger PRODUCT REPRESENTATIVE.AGRICULTURAL ECONOMICS PROFESSOR Work Phone: [facility] 01-02-2023 12:57-0400 Body height 162.6 cm Marlee Almanza PRODUCT REPRESENTATIVE.CNM Work Phone: [facility] 01-02-2023 12:57-0400 Body weight 62.14 kg Marlee Almanza PRODUCT REPRESENTATIVE.CNM Work Phone: [facility] 01-02-2023 12:57-0400 Diastolic blood pressure 60 mm[Hg] Marlee Almanza PRODUCT REPRESENTATIVE.CNM Work Phone: [facility] 01-02-2023 12:57-0400 Systolic blood pressure 98 mm[Hg] Marlee Almanza PRODUCT REPRESENTATIVE.CNM Work Phone: [facility] 12-17-2022 08:52-0400 Body temperature 97.11 [degF] Anjali Valero PRODUCT REPRESENTATIVE.AGRICULTURAL ECONOMICS PROFESSOR Work Phone: [facility] 12-17-2022 08:52-0400 Body weight 61.24 kg Anjali Valero PRODUCT REPRESENTATIVE.AGRICULTURAL ECONOMICS PROFESSOR Work Phone: [facility] 12-17-2022 08:52-0400 Diastolic blood pressure 75 mm[Hg] Anjali Valero PRODUCT REPRESENTATIVE.AGRICULTURAL ECONOMICS PROFESSOR Work Phone: [facility] 12-17-2022 08:52-0400 Heart rate 65 /min Anjali Valero APRN.AGRICULTURAL ECONOMICS PROFESSOR Work Phone: [facility] 12-17-2022 08:52-0400 Respiratory rate 18 /min Anjali Valero APRN.AGRICULTURAL ECONOMICS PROFESSOR Work Phone: [facility] 12-17-2022 08:52-0400 SaO2% (BldA) [Mass fraction] 100 % Anjali Valero PRODUCT REPRESENTATIVE.AGRICULTURAL ECONOMICS PROFESSOR Work Phone: [facility] 12-17-2022 08:52-0400 Systolic blood pressure 114 mm[Hg] Anjali Valero APRN.AGRICULTURAL ECONOMICS PROFESSOR Work Phone: [facility] 08-04-2022 11:27-0500 Body temperature 98.49 [degF] Anne-Marie Chacon APRN.AGRICULTURAL ECONOMICS PROFESSOR Work Phone: [facility] 08-04-2022 11:27-0500 Body weight 56.7 kg Anne-Marie Chacon APRN.AGRICULTURAL ECONOMICS PROFESSOR Work Phone: [facility] 08-04-2022 11:27-0500 Diastolic blood pressure 64 mm[Hg] Anne-Marie Chacon APRN.AGRICULTURAL ECONOMICS PROFESSOR Work Phone: [facility] 08-04-2022 11:27-0500 Heart rate 57 /min Anne-Marie Chacon APRN.AGRICULTURAL ECONOMICS PROFESSOR Work Phone: [facility] 08-04-2022 11:27-0500 Respiratory rate 14 /min Anne-Marie Chacon APRN.AGRICULTURAL ECONOMICS PROFESSOR Work Phone: [facility] 08-04-2022 11:27-0500 SaO2% (BldA) [Mass fraction] 99 % Anne-Marie Chacon APRN.AGRICULTURAL ECONOMICS PROFESSOR Work Phone: [facility] 08-04-2022 11:27-0500 Systolic blood pressure 116 mm[Hg] Anne-Marie Chacon APRN.AGRICULTURAL ECONOMICS PROFESSOR Work Phone: [facility] 12-26-2021 11:09-0400 Body weight 60.6 kg Marlee Almanza APRN.CNM Work Phone: [facility] 12-26-2021 11:09-0400 Diastolic blood pressure 60 mm[Hg] Marlee Almanza APRN.CNM Work Phone: [facility] 12-26-2021 11:09-0400 Systolic blood pressure 110 mm[Hg] Marlee Almanza APRN.CNM Work Phone: [facility] 11-18-2021 08:30-0400 Body temperature 97.2 [degF] [facility] Work Phone: 11-18-2021 08:30-0400 Diastolic blood pressure 59 mm[Hg] [facility] Work Phone: 11-18-2021 08:30-0400 Heart rate 62 /min [facility] Work Phone: 11-18-2021 08:30-0400 Respiratory rate 18 /min [facility] Work Phone: 11-18-2021 08:30-0400 Systolic blood pressure 100 mm[Hg] [facility] Work Phone: 11-18-2021 02:30-0400 SaO2% (BldA) [Mass fraction] 97 % [facility] Work Phone: 11-16-2021 22:11-0400 Body height 162.56 cm [facility] Work Phone: 11-16-2021 22:11-0400 Body mass index (BMI) [Ratio] 25.4 kg/m2 [facility] Work Phone: 11-16-2021 22:11-0400 Body weight 67.13 kg [facility] Work Phone: 11-14-2021 11:31-0400 Body weight 67.59 kg Marlee Almanza APRN.CNM Work Phone: [facility] 11-14-2021 11:31-0400 Diastolic blood pressure 62 mm[Hg] Marlee Almanza APRN.CNRuma Work Phone: [facility] 11-14-2021 11:31-0400 Systolic blood pressure 110 mm[Hg] Marlee Almanza APRN.CNM Work Phone: [facility] 11-07-2021 23:33-0400 Body temperature 98 [degF] [facility] Work Phone: 11-07-2021 23:33-0400 Diastolic blood pressure 67 mm[Hg] [facility] Work Phone: 11-07-2021 23:33-0400 Heart rate 57 /min [facility] Work Phone: 11-07-2021 23:33-0400 SaO2% (BldA) [Mass fraction] 98 % [facility] Work Phone: 11-07-2021 23:33-0400 Systolic blood pressure 113 mm[Hg] [facility] Work Phone: 11-07-2021 19:16-0400 Body mass index (BMI) [Ratio] 25.5 kg/m2 [facility] Work Phone: 11-07-2021 19:16-0400 Body weight 67.58 kg [facility] Work Phone: 10-31-2021 14:13-0400 Body weight 65.32 kg Marlee Almanza APRN.CNM Work Phone: [facility] 10-31-2021 14:13-0400 Diastolic blood pressure 56 mm[Hg] Marlee Almanza APRN.CNM Work Phone: [facility] 10-31-2021 14:13-0400 Systolic blood pressure 102 mm[Hg] Marlee Almanza APRN.CNM Work Phone: [facility] 10-25-2021 10:52-0400 Body weight 66.86 kg Erendira Hayes MD Work Phone: [facility] 10-25-2021 10:52-0400 Diastolic blood pressure 64 mm[Hg] Erendira Hayes MD Work Phone: [facility] 10-25-2021 10:52-0400 Systolic blood pressure 118 mm[Hg] Erendira Hayes MD Work Phone: [facility] 10-23-2021 15:45-0400 Body temperature 98.42 [degF] JANICE SUÁREZ MD [facility] 10-23-2021 15:45-0400 Diastolic blood pressure 63 mm[Hg] JANICE SUÁREZ MD [facility] 10-23-2021 15:45-0400 Heart rate 69 /min JANICE SUÁREZ MD [facility] 10-23-2021 15:45-0400 Mean blood pressure 79 mm[Hg] JANICE SUÁREZ MD [facility] 10-23-2021 15:45-0400 Respiratory rate 16 /min JANICE SUÁREZ MD [facility] 10-23-2021 15:45-0400 Systolic blood pressure 110 mm[Hg] JANICE SUÁREZ MD [facility] 10-23-2021 11:27-0400 Body temperature 98.6 [degF] JANICE SUÁREZ MD [facility] 10-23-2021 11:27-0400 Diastolic blood pressure 62 mm[Hg] JANICE SUÁREZ MD [facility] 10-23-2021 11:27-0400 Heart rate 61 /min JANICE SUÁREZ MD [facility] 10-23-2021 11:27-0400 Mean blood pressure 76 mm[Hg] JANICE SUÁREZ MD [facility] 10-23-2021 11:27-0400 Respiratory rate 20 /min JANICE SUÁREZ MD [facility] 10-23-2021 11:27-0400 Systolic blood pressure 103 mm[Hg] JANICE SUÁREZ MD [facility] 10-23-2021 08:00-0400 Body temperature 98.06 [degF] JANICE SUÁREZ MD [facility] 10-23-2021 08:00-0400 Diastolic blood pressure 61 mm[Hg] JANICE SUÁREZ MD [facility] 10-23-2021 08:00-0400 Heart rate 62 /min JANICE SUÁREZ MD [facility] 10-23-2021 08:00-0400 Respiratory rate 17 /min JANICE SUÁREZ MD [facility] 10-23-2021 08:00-0400 Systolic blood pressure 105 mm[Hg] JANICE SUÁREZ MD [facility] 10-22-2021 10:04-0400 Body height 162.6 cm JANICE SUÁREZ MD [facility] 10-22-2021 10:04-0400 Body weight 65 kg JANICE SUÁREZ MD [facility] 10-22-2021 10:04-0400 Body weight 24.59 kg/m2 JANICE SUÁREZ MD [facility] 10-21-2021 00:01-0400 Body height 162.6 cm JANICE SUÁREZ MD [facility] 10-21-2021 00:01-0400 Body weight 65 kg JANICE SUÁREZ MD [facility] 10-21-2021 00:01-0400 Body weight 24.59 kg/m2 JANICE SUÁREZ MD [facility] 10-20-2021 22:30-0400 Body height 162.6 cm JANICE SUÁREZ MD [facility] 10-20-2021 22:30-0400 Body weight 65 kg JANICE SUÁREZ MD [facility] 10-20-2021 22:30-0400 Body weight 24.59 kg/m2 JANICE SUÁREZ MD [facility] 10-18-2021 14:18-0400 Body height 162.6 cm Nelly Shipley MD Work Phone: [facility] 10-18-2021 14:18-0400 Body weight 64.86 kg Nelly Shipley MD Work Phone: [facility] 10-07-2021 17:17-0400 Body height 162.56 cm [facility] Work Phone: 10-07-2021 17:17-0400 Body mass index (BMI) [Ratio] 25.2 kg/m2 [facility] Work Phone: 10-07-2021 17:17-0400 Body weight 66.7 kg [facility] Work Phone: 10-07-2021 17:05-0400 Heart rate 85 /min [facility] Work Phone: 10-07-2021 17:05-0400 SaO2% (BldA) [Mass fraction] 98 % [facility] Work Phone: 10-07-2021 17:04-0400 Diastolic blood pressure 65 mm[Hg] [facility] Work Phone: 10-07-2021 17:04-0400 Systolic blood pressure 111 mm[Hg] [facility] Work Phone: 10-06-2021 17:28-0400 Body height 162.56 cm [facility] Work Phone: 10-06-2021 17:28-0400 Body mass index (BMI) [Ratio] 25 kg/m2 [facility] Work Phone: 10-06-2021 [id number] Body weight 66.3 kg [facility] Work Phone: 10-06-2021 17:11-0400 Body temperature 99.4 [degF] [facility] Work Phone: 10-06-2021 17:11-0400 Diastolic blood pressure 54 mm[Hg] [facility] Work Phone: 10-06-2021 17:11-0400 Heart rate 75 /min [facility] Work Phone: 10-06-2021 17:11-0400 SaO2% (BldA) [Mass fraction] 99 % [facility] Work Phone: 10-06-2021 17:11-0400 Systolic blood pressure 100 mm[Hg] [facility] Work Phone: 10-06-2021 15:46-0400 Body weight 66.22 kg Erendira Hayes MD Work Phone: [facility] 10-06-2021 15:46-0400 Diastolic blood pressure 70 mm[Hg] Erendira Hayes MD Work Phone: [facility] 10-06-2021 15:46-0400 Systolic blood pressure 120 mm[Hg] Erendira Hayes MD Work Phone: [facility] 09-18-2021 16:59-0500 Body height 160 cm GLENN ZAVALA MD [facility] 09-18-2021 16:59-0500 Body weight 64.4 kg GLENN ZAVALA MD [facility] 09-18-2021 16:59-0500 Body weight 25.16 kg/m2 GLENN ZAVALA MD [facility] 09-18-2021 16:57-0500 Diastolic blood pressure 62 mm[Hg] GLENN ZAVALA MD [facility] 09-18-2021 16:57-0500 Heart rate 65 /min GLENN ZAVALA MD [facility] 09-18-2021 16:57-0500 Mean blood pressure 76 mm[Hg] GLENN ZAVALA MD [facility] 09-18-2021 16:57-0500 Respiratory rate 16 /min GLENN ZAVALA MD [facility] 09-18-2021 16:57-0500 Systolic blood pressure 104 mm[Hg] GLENN ZAVALA MD [facility] Encounters Encounter Date Encounter Type Care Provider Facility Start: 03-31-2025 End: 03-31-2025 Chart abstracting Erendira Hayes MD Work Phone: OB/Gynecology Comment on above: Results (Urine Cultu re) Start: 03-30-2025 End: 03-30-2025 ambulatory MARLEE ALMANZA Facility:[facility] Start: 03-29-2025 End: 03-29-2025 ambulatory No Primary Care Physician -[facility] Start: 03-29-2025 End: 03-29-2025 Patient encounter procedure Aby Donovan CNM -[facility] Work Phone: Start: 03-23-2025 End: 03-23-2025 Telephone encounter Anjali [...] Start: 03-16-2025 End: 03-16-2025 Patient encounter procedure Manager Practice [facility] Work Phone: [facility] Comment on above: Uterine size-date di screpancy, third trimester (HCC) Start: 03-16-2025 End: 03-16-2025 ambulatory MARLEE ALMANZA Facility:[facility] Start: 03-05-2025 End: 03-05-2025 Patient encounter [...] Start: 03-05-2025 End: 03-05-2025 ambulatory WILLA ROGERS Facility:[facility] Start: 02-22-2025 End: 02-22-2025 Patient encounter procedure Marlee Almanza APRN.CNM Work Phone: OB/Gynecology Comment on above: Supervision of high risk in third trimester (HCC) (Primary Dx); 31 weeks gestation of (HCC); HSV-2 seropositive; Anxiety and depression; Antepartum anemia complicating in third trimester (HCC); Heartburn during in third trimester (HCC) Start: 02-22-2025 End: 02-22-2025 ambulatory MARLEE ALMANZA Facility:[facility] Start: 02-19-2025 End: 02-23-2025 ambulatory Marlee Almanza APRN.CNM Work Phone: OB/Gynecology Comment on above: 02/19/25 Start: 02-18-2025 End: 02-19-2025 Emergency department patient visit WILLA Hendrix SUE Facility:[facility] Start: 02-11-2025 End: 02-11-2025 Patient encounter procedure Marlee Almanza APRN.CNM Work Phone: OB/Gynecology Comment on above: Supervision of high risk in third trimester (HCC) (Primary Dx); 30 weeks gestation of (HCC); HSV-2 seropositive; History of depression; Anxiety and depression; Bleeding of eye, left; Antepartum anemia complicating in third trimester (HCC) Start: 02-11-2025 End: 02-11-2025 ambulatory MARLEE ALMANZA Facility:[facility] Start: 02-05-2025 End: 02-05-2025 ambulatory Samaria Haji APRN.AGRICULTURAL ECONOMICS PROFESSOR Work Phone: Psychiatry Comment on above: Cancel Start: 01-25-2025 End: 01-25-2025 ambulatory SELAM LOUISE Facility:[facility] Start: 01-25-2025 End: 03-27-2025 Follow-up encounter Marlee Almanza APRN.CNRuma Work Phone: OB/Gynecology Start: 01-25-2025 End: 01-25-2025 Patient encounter procedure Marlee Almanza APRN.CNM Work Phone: OB/Gynecology Comment on above: Supervision of high risk in second trimester (HCC) (Primary Dx); 27 weeks gestation of (HCC); Bleeding of eye, left Conjunctival hemorrh age of left eye (Primary Dx) Start: 01-25-2025 End: 01-25-2025 ambulatory MARLEE ALMANZA Facility:[facility] Start: 01-17-2025 End: 01-18-2025 ambulatory DENISE REICH Facility:[id number] Start: 12-30-2024 End: 12-30-2024 Patient encounter procedure Marlee Archie [facility] Work Phone: OB/Gynecology Comment on above: Screening for diabet es mellitus (Primary Dx); 23 weeks gestation of (HCC); Supervision of high risk in second trimester (HCC); Heartburn Start: 12-30-2024 End: 12-30-2024 ambulatory MARLEE ARCHIE Facility:[facility] Start: 12-01-2024 End: 12-01-2024 ambulatory [facility] Facility:[facility] Start: 11-12-2024 End: 11-12-2024 [facility] Samaria Haji APRN.AGRICULTURAL ECONOMICS PROFESSOR Work Phone: Psychiatry Comment on above: GUIDO (generalized anx iety disorder) (Primary Dx); Encounter for long-term (current) use of medications; Recurrent major depressive disorder, in partial remission; Psychosocial stressors Start: 11-12-2024 ambulatory SAMARIA HAJI Facilit y:[facility] Start: 11-03-2024 End: 11-03-2024 Patient encounter procedure Marlee Archie [facility] Work Phone: OB/Gynecology Comment on above: Supervision of high risk , antepartum (HCC) (Primary Dx); 15 weeks gestation of (HCC); HSV-2 seropositive; History of depression; History of anxiety; Anxiety and depression Start: 11-03-2024 End: 11-03-2024 ambulatory Marlee Almanza APRN.SEBASTIAN Work Phone: OB/Gynecology Comment on above: Prenatals Im sorry Start: 10-30-2024 End: 10-30-2024 ambulatory Saamria Haji APRN.[facility] Work Phone: Psychiatry Comment on above: NO SHOW (Primary Dx) Start: 10-30-2024 End: 10-30-2024 Telemedicine consultation with patient Samaria Haji APRN.[facility] Work Phone: Psychiatry Start: 10-12-2024 End: 12-12-2024 Follow-up encounter Ole Simmons MD Work Phone: OB/Gynecology Start: 10-06-2024 End: 10-06-2024 ambulatory MARLEE ALMANZA Facility:[facility] Start: 10-06-2024 End: 10-06-2024 ambulatory MARLEE ALMANZA Facility:[facility] Start: 10-06-2024 End: 10-06-2024 Patient encounter procedure Marleedeondre Almanza PRODUCT REPRESENTATIVE.CNM Work Phone: OB/Gynecology Comment on above: Supervision of high risk , antepartum (Primary Dx); Herpes simplex virus (HSV) infection; Anxiety and depression; 11 weeks gestation of Encounter for anatomic survey (Primary Dx); History of labor; 11 weeks gestation of Start: 10-05-2024 End: 10-05-2024 ambulatory MARLEE ALMANZA Facility:[id number] Start: 09-16-2024 End: 09-16-2024 ambulatory SAMARIA HAJI Facility:[facility] Start: 09-16-2024 End: 09-16-2024 Patient encounter procedure Samaria Haji PRODUCT REPRESENTATIVE.AGRICULTURAL ECONOMICS PROFESSOR Work Phone: Psychiatry Comment on above: APPOINTMENT CANCELLE D (Primary Dx) Start: 09-16-2024 End: 09-16-2024 Telemedicine consultation with patient Samaria Haji APRN.AGRICULTURAL ECONOMICS PROFESSOR Work Phone: Psychiatry Start: 09-16-2024 End: 09-16-2024 Telephone encounter Samaria Haji APRN.AGRICULTURAL ECONOMICS PROFESSOR Work Phone: Psychiatry Start: 09-15-2024 End: 09-15-2024 Telephone encounter Samaria Haji PRODUCT REPRESENTATIVE.AGRICULTURAL ECONOMICS PROFESSOR Work Phone: Psychiatry Start: 09-11-2024 End: 09-16-2024 ambulatory Samaria Haji PRODUCT REPRESENTATIVE.AGRICULTURAL ECONOMICS PROFESSOR Work Phone: Psychiatry Comment on above: Wellbutrin Start: 09-08-2024 End: 09-08-2024 ambulatory MARLEEDEONDRE ALMANZA Facility:[facility] Start: 09-08-2024 End: 09-08-2024 Patient encounter procedure Marlee Almanza PRODUCT REPRESENTATIVE.CNM Work Phone: OB/Gynecology Comment on above: Supervision of high risk , antepartum (Primary Dx); 7 weeks gestation of ; Screen for STD (sexually transmitted disease); History of labor; Herpes simplex virus (HSV) infection; History of depression; Anxiety and depression; Family history of [place] disease; GUIDO (generalized anxiety disorder); HSV-2 seropositive; Family history of defects Start: 09-05-2024 End: 09-05-2024 ambulatory SHERITA MADDOX Facility:[id number] Start: 09-02-2024 End: 09-02-2024 Emergency department patient visit WILLA KOVACSOMBS Facility:[id number] Start: 09-01-2024 End: 09-01-2024 ambulatory ARIANNA MELI Facility:[id number] Start: 09-01-2024 End: 09-01-2024 Patient encounter procedure Arianna Bynum APRN.CNP Work Phone: [facility] Comment on above: Nausea and vomiting, unspecified vomiting type (Primary Dx); Dizzy; Viral illness Start: 08-28-2024 End: 08-28-2024 ambulatory SAMARIA HAJI Facility:[facility] Start: 08-28-2024 End: 08-28-2024 [facility] Samaria Haji APRN.CNP Work Phone: Psychiatry [...] Start: 05-22-2024 End: 05-22-2024 ambulatory Samaria Haji APRN.CNP Work Phone: Psychiatry Comment on above: Duplicate sorry Start: 05-04-2024 End: 05-04-2024 ambulatory SAMARIA HAJI Facility:[facility] Start: 05-04-2024 End: 05-04-2024 [facility] Samaria Haji APRN.CNP Work Phone: Psychiatry Comment on above: GUIDO (generalized anx iety disorder) (Primary Dx); Moderate episode of recurrent major depressive disorder (HCC); Apathy; Medication side effect, initial encounter; Encounter for long-term (current) use of medications Start: 03-06-2024 End: 03-06-2024 Telephone encounter Anne-Marie Roldan MD Work Phone: OB/Gynecology Comment on above: Vaginal Problem Start: 01-31-2024 End: 01-31-2024 [facility] Samaria Haji APRN.AGRICULTURAL ECONOMICS PROFESSOR Work Phone: Psychiatry Comment on above: Recurrent major depr essive disorder, in partial remission (HCC) (Primary Dx); GUIDO (generalized anxiety disorder); Grief reaction Start: 01-17-2024 ambulatory Samaria bryant PRODUCT REPRESENTATIVE.AGRICULTURAL ECONOMICS PROFESSOR Work Phone: Psychiatry Comment on above: Cancellation Start: 01-17-2024 End: 01-17-2024 Patient encounter procedure Samaria Haji APRN.AGRICULTURAL ECONOMICS PROFESSOR Work Phone: Psychiatry Comment on above: APPOINTMENT CANCELLE D (Primary Dx) Start: 01-17-2024 End: 01-17-2024 Telemedicine consultation with patient Samaria Haji APRN.CNP Work Phone: Psychiatry Start: 12-18-2023 ambulatory Marlee Almanza APRN.CNM Work Phone: OB/Gynecology Comment on above: Blood work Start: 11-06-2023 Telephone encounter Marlee wright APRN.CNRuma Work Phone: OB/Gynecology Comment on above: Irregular Menstrual Cycle (/) Start: 11-01-2023 End: 11-01-2023 [facility] Samaria Haji APRN.AGRICULTURAL ECONOMICS PROFESSOR Work Phone: Psychiatry Comment on above: Recurrent major depr essive disorder, in partial remission (HCC) (Primary Dx); GUIDO (generalized anxiety disorder); Grief reaction Start: 10-23-2023 ambulatory Samaria bryant APRN.AGRICULTURAL ECONOMICS PROFESSOR Work Phone: Psychiatry Comment on above: Marzena Pickering Start: 09-30-2023 End: 09-30-2023 Patient encounter procedure Sherita Mejia PA-C Work Phone: [facility] Comment on above: Neoplasm of unspecif ied behavior of bone, soft tissue, and skin (Primary Dx); Family history of melanoma Start: 08-26-2023 End: 08-26-2023 [facility] Supriya Valdovinos [facility] Comment on above: Moderate episode of recurrent major depressive disorder (HCC); GUIDO (generalized anxiety disorder) Start: 04-04-2023 End: 04-04-2023 [facility] Samaria Haji APRN.AGRICULTURAL ECONOMICS PROFESSOR Work Phone: Psychiatry Comment on above: GUIDO (generalized anx iety disorder) (Primary Dx); Moderate episode of recurrent major depressive disorder (HCC) Start: 03-08-2023 End: 03-08-2023 [facility] Samaria Haji APRN.AGRICULTURAL ECONOMICS PROFESSOR Work Phone: Psychiatry Comment on above: GUIDO (generalized anx iety disorder) (Primary Dx) Start: 03-07-2023 End: 03-07-2023 Patient encounter procedure Samaria Haji APRN.CNP Work Phone: Psychiatry Comment on above: APPOINTMENT CANCELLE D (Primary Dx) Start: 03-07-2023 End: 03-07-2023 Telemedicine consultation with patient Samaria Haji APRN.AGRICULTURAL ECONOMICS PROFESSOR Work Phone: [facility] Start: 01-02-2023 End: 01-02-2023 Patient encounter [...] Start: 01-02-2023 End: 01-02-2023 Patient encounter status Marleedeondre Almanza APRN.CNM Work Phone: OB/Gynecology Start: 12-17-2022 Telephone encounter No Pcp [facility] Comment on above: Medication Problem Start: 12-17-2022 ambulatory FC-ANJALI VALERO Facility:[facility] Start: 12-17-2022 End: 12-17-2022 Subsequent hospital visit by physician Provider [facility] Start: 12-17-2022 End: 12-17-2022 Patient encounter procedure Anjali Valero PRODUCT REPRESENTATIVE.AGRICULTURAL ECONOMICS PROFESSOR Work Phone: [facility] Comment on above: Pharyngitis, unspeci fied etiology (Primary Dx); Sore throat; Acute bacterial conjunctivitis of both eyes Start: 11-20-2022 End: 11-20-2022 [facility] Samaria Haji APRN.AGRICULTURAL ECONOMICS PROFESSOR Work Phone: Psychiatry Comment on above: GUIDO (generalized anx iety disorder) (Primary Dx) Start: 11-02-2022 End: 11-02-2022 [facility] Samaria Haji PRODUCT REPRESENTATIVE.AGRICULTURAL ECONOMICS PROFESSOR Work Phone: Psychiatry Comment on above: GUIDO (generalized anx iety disorder) (Primary Dx) Start: 10-15-2022 ambulatory Marlee Archie EAST.SARITAM Work Phone: OB/Gynecology Comment on above: Questions Start: 10-09-2022 Telephone encounter Ole acuna PRODUCT REPRESENTATIVE.AGRICULTURAL ECONOMICS PROFESSOR Work Phone: Occupational Health Comment on above: [facility] Start: 10-08-2022 Telephone encounter Krystal jerome PA-C Work Phone: Occupational Health Comment on above: [facility] Start: 10-04-2022 Telephone encounter Agueda bell MD Work Phone: Occupational Health Comment on above: [facility] Start: 08-04-2022 End: 08-04-2022 Patient encounter procedure Anne-Marie Chacon APRN.AGRICULTURAL ECONOMICS PROFESSOR Work Phone: [facility] Comment on above: Viral URI with cough (Primary Dx) Start: 05-15-2022 End: 05-20-2022 Encounter for general adult medical examination without abnormal findings DR. WILLA ROGERS DO Facility:[facility] Start: 05-15-2022 End: 05-20-[address] WILLA ROGERS DO Facility:[facility] Start: 04-25-2022 ambulatory Marlee Almanza APRN.CNM Work Phone: OB/Gynecology Comment on above: Diflucan Start: 03-07-2022 Refill Marlee Almanza APRN.CNM Work Phone: OB/Gynecology Comment on above: Refill Request Start: 12-26-2021 ambulatory Marlee Almanza APRN.CNRuma Work Phone: OB/Gynecology Comment on above: Back to work request Start: 12-26-2021 End: 12-26-2021 Patient encounter procedure Marlee Almanza APRN.CNM Work Phone: OB/Gynecology Comment on above: care and examination (Primary Dx); Encounter for initial prescription of contraceptive pills Start: 11-24-2021 ambulatory Marlee Almanza APRN.CNRuma Work Phone: OB/Gynecology Comment on above: Ob Delivery Note Start: 11-23-2021 ambulatory Marlee Almanza APRN.CNM Work Phone: [facility] Start: 11-23-2021 Patient encounter procedure Marlee Almnaza APRN.CNM Work Phone: OB/Gynecology Comment on above: Appointment Start: 11-16-2021 End: 11-18-2021 [facility] Start: 11-14-2021 End: 11-14-2021 Patient encounter procedure Marlee Almanza APRN.CNM Work Phone: OB/Gynecology Comment on above: 36 weeks gestation o f (Primary Dx); Uterine size-date discrepancy, third trimester Start: 11-07-2021 End: 11-08-2021 [facility] Start: 10-31-2021 End: 10-31-2021 Patient encounter procedure Marlee Almanza APRN.CNM Work Phone: OB/Gynecology Comment on above: 34 weeks gestation o f (Primary Dx) Start: 10-28-2021 End: 10-28-2021 Subsequent hospital visit by physician Provider [facility] Comment on above: OB CHECK 34 [...] Start: 10-23-2021 ambulatory Erendira Andres Work Phone: [facility] Start: 10-23-2021 Patient encounter procedure Erendira Hayes MD Work Phone: OB/Gynecology Comment on above: Appointment Start: 10-23-2021 Telephone encounter Erendira zepeda MD Work Phone: OB/Gynecology Comment on above: Patient Update Start: 10-21-2021 End: 10-23-2021 Evaluation and management of inpatient DR. JANICE SUÁREZ MD. Facility:A Start: 10-20-2021 End: 10-23-2021 Evaluation and management of inpatient JANICE SUÁREZ MD [facility] Start: 10-20-2021 ambulatory Marlee Almanza APRN.CNM Work Phone: OB/Gynecology Comment on above: Forgot to schedule Start: 10-18-2021 End: 10-18-2021 Patient encounter procedure Nelly Shipley MD Work Phone: Maternal Medicine Comment on above: Uterine size date di screpancy, third trimester (Primary Dx); 32 weeks gestation of Start: 10-07-2021 End: 10-07-2021 [facility] Start: 10-06-2021 End: 10-06-2021 Patient encounter procedure Erendira Hayes MD Work Phone: OB/Gynecology Comment on above: 31 weeks gestation o f (Primary Dx); Short interval between pregnancies affecting , antepartum; Pelvic pain during ; Supervision of other normal , antepartum Start: 09-18-2021 End: 09-18-2021 ambulatory GLENN ZAVALA MD Facility:A Start: 09-18-2021 End: 09-18-2021 SAME DAY STAY GLENN ZAVALA MD [facility] Start: 04-25-2021 Patient encounter procedure Bradford Mario DO Work Phone: [facility] Start: 04-25-2021 Progress Note Bradford Liao Work Phone: [facility] Start: 04-13-2021 End: 12-26-2021 Patient requested procedure Erendira Hayes MD Work Phone: [facility] Work Phone: Procedures Date Procedure Procedure Detail Performing Clinician Start: 03-29-2025 Bacterial nucleic ac id assay No Primary Care Physician Start: 03-29-2025 Urnls dip stick/tabl et reagent auto microscopy No Primary Care Physician Start: 03-29-2025 Bacterial nucleic ac id assay No Primary Care Physician Start: 03-29-2025 Serologic test for syphilis No Primary Care Physician Start: 03-16-2025 Us preg uterus after 1st trimest 07/15 gestation Marlee Almanza APRN.CNM Work Phone: Start: 10-06-2024 Us preg uterus after 1st trimest / gestation Marlee Almanza APRN.CNM Work Phone: Start: 10-05-2024 Antibody screen SHERITA MADDOX Comment on above: Order Comment: Speci men Type: BLOOD SPECIMEN Ordering Facility: [facility] Address: [address] [place] [address] Performed By: #### T SPN #### [facility] CLIA [id number] [address] [place] [address] [place] Start: 09-08-2024 BACTERIAL VAGINOSIS NAAT Marlee Almanza PRODUCT REPRESENTATIVE.CNM Work Phone: Start: 09-08-2024 Iadna chlamydia trac homatis amplified probe tq Marlee Almanza PRODUCT REPRESENTATIVE.CNM Work Phone: Start: 09-08-2024 Us uterus l imited 1/ fetuses Marlee Almanza PRODUCT REPRESENTATIVE.CNM Work Phone: Start: 01-02-2023 Iadna trichomonas va ginalis amplified probe tech Marlee Almanza PRODUCT REPRESENTATIVE.CNM Work Phone: Start: 12-17-2022 Throat culture Anjali syed PRODUCT REPRESENTATIVE.AGRICULTURAL ECONOMICS PROFESSOR Work Phone: Start: 12-17-2022 RAPID STREP TEST B/O Shyam Bynum PRODUCT REPRESENTATIVE.AGRICULTURAL ECONOMICS PROFESSOR Work Phone: Start: 11-14-2021 URINE OB DIP B/O Maria R Almanza PRODUCT REPRESENTATIVE.CNM Work Phone: Start: 11-08-2021 Urine culture Start: 10-31-2021 URINE OB DIP B/O Maria R Almanza PRODUCT REPRESENTATIVE.CNM Work Phone: Start: 10-28-2021 AMNISURE ROM (UNION) [...] RSV Vaccine (1 - 1-dose 75+ series) [facility] Start: 09-16-2031 Urine microalbumin profile [facility] Start: 01-03-2028 HPV TESTING HPV TESTING [facility] Start: 01-03-2028 PAP TESTING PAP TESTING [facility] Start: 01-03-2028 Screening for malign ant neoplasm of cervix [facility] Start: 02-07-2026 HPV TESTING HPV TESTING [facility] Start: 02-07-2026 PAP TESTING PAP TESTING [facility] Start: 2025 End: 2025 Patient encounter procedure 2025 3:15 PM EDT Routine Office Visit OB/Gynecology [address] [place] [id number] Marlee Almanza APRN.CN [address] [place] [id number] Ob OB/Gynecology Comment on above: Ob Start: 03-30-2025 End: 03-30-2025 Patient encounter procedure 03/30/2025 10:00 AM EDT Routine Office Visit OB/Gynecology [address] [place] [id number] Marlee Almanza APRN.CNM [address] [place] [id number] Growth OB/Gynecology Comment on above: Growth Start: 03-29-2025 Bacteria identified in Urine by Culture Urine Culture [facility] Start: 03-29-2025 Group B Streptococcu s Culture Group B Streptococcus Culture [facility] Start: 03-29-2025 [facility] Start: 03-29-2025 Nonstress test [facility] Start: 03-29-2025 Obstetric monitoring [facility] Start: 03-29-2025 Vital signs measurements [facility] Start: 03-29-2025 [facility] Start: 03-29-2025 Catheterization of vein [facility] Start: 03-29-2025 Patient discharge [facility] Start: 03-22-2025 End: 03-22-2025 Patient encounter procedure 03/22/2025 11:15 AM EDT Routine Office Visit OB/Gynecology [address] [place] [address] Marlee Almanza APRN.CN [address] [place] [address] Growth OB/Gynecology Comment on above: Growth Start: 03-17-2025 Nonstress test [facility] Start: 03-17-2025 Obstetric monitoring [facility] Start: 03-17-2025 Vital signs measurements [facility] Start: 03-17-2025 [facility] Start: 03-17-2025 Patient discharge [facility] Start: 03-16-2025 End: 03-16-2025 Patient encounter procedure 03/16/2025 11:00 AM EDT Routine Office Visit [facility] [address] [facility] [address] [place] [address] Growth [facility] Comment on above: Growth Start: 03-15-2025 Influenza vaccination [facility] Start: 03-15-2025 RSV Vaccine (1 - Ris k 1-dose series) RSV Vaccine (1 - Risk 1-dose series) [facility] Start: 03-05-2025 End: 03-05-2025 Patient encounter procedure 03/05/2025 2:30 PM EDT Routine Office Visit OB/Gynecology [address] [place] [address] Marlee Almanza APRN.CNM [address] [place], [place] [address] OB OB/Gynecology Comment on above: OB Start: 03-05-2025 End: 03-05-2026 OBSTETRIC ULTRASOUND [facility] OBSTETRIC ULTRASOUND [facility] Anc Imaging Routine Uterine size-date discrepancy, third trimester (HCC) Expected: 03/05/2025, Expires: 03/05/2026 [facility] Work Phone: Comment on above: Expected: 03/05/2025 , Expires: 03/05/2026 Start: 02-22-2025 End: 05-23-2025 ANEMIA REFLEX PANEL [facility] Work Phone: Comment on above: Expected: 02/22/2025 , Expires: 05/23/2025 Start: 02-22-2025 End: 02-22-2025 Patient encounter procedure 02/22/2025 1:30 PM EDT Routine Office Visit OB/Gynecology [address] [place] [address] Marlee Almanza APRN.CNM [address] [place], [place] [address] OB, ok per [facility] OB/Gynecology Comment on above: OB, ok per [facility] Start: 02-11-2025 End: 02-11-2025 Patient encounter procedure 02/11/2025 9:15 AM EDT Routine Office Visit OB/Gynecology [address] [place] [address] Marlee Almanza APRN.CNRuma [address] [place], [place] [address] OB OB/Gynecology Comment on above: OB Start: 02-05-2025 End: 02-05-2025 ambulatory 02/05/2025 11:30 AM EDT [facility] Psychiatry [address] [place] [id number] Samaria Haji, PRODUCT REPRESENTATIVE.AGRICULTURAL ECONOMICS PROFESSOR [address] [place] [id number] Psychiatry Start: 01-29-2025 End: 04-30-2025 ANEMIA REFLEX PANEL ANEMIA REFLEX PANEL Lab Routine 23 weeks gestation of ([facility]) Supervision of high risk in second trimester ([facility]) Expected: 01/29/2025 (Approximate), Expires: 04/30/2025 [facility] Comment on above: Expected: 01/29/2025 (Approximate), Expires: 04/30/2025 Start: 01-29-2025 End: 12-30-2025 GESTATIONAL GLUCOSE SCREEN, 1-HOUR, 50 GRAM, NON-FASTING GESTATIONAL GLUCOSE SCREEN, 1-HOUR, 50 GRAM, NON-FASTING Lab Routine Screening for diabetes mellitus Expected: 01/29/2025 (Approximate), Expires: 12/30/2025 [facility] Work Phone: Comment on above: Expected: 01/29/2025 (Approximate), Expires: 12/30/2025 Start: 01-29-2025 End: 12-30-2025 SYPHILIS TREPONEMAL W/REFLEX SYPHILIS TREPONEMAL W/REFLEX Lab Routine 23 weeks gestation of ([facility]) Supervision of high risk in second trimester ([facility]) Expected: 01/29/2025 (Approximate), Expires: 12/30/2025 [facility] Comment on above: Expected: 01/29/2025 (Approximate), Expires: 12/30/2025 Start: 01-25-2025 End: 01-25-2025 Patient encounter procedure 01/25/2025 1:45 PM EDT Routine Office Visit OB/Gynecology [address] [place] [id number] Marlee Almanza APRN.CNM [address] [place] [id number] OB OB/Gynecology Comment on above: OB Start: 12-30-2024 End: 12-30-2024 Patient encounter procedure 12/30/2024 1:15 PM EDT Routine Office Visit OB/Gynecology [address] [place] ID [id number] Marlee Almanza APRN.CN [address] [place] [id number] OB OB/Gynecology Comment on above: OB Start: 12-01-2024 End: 12-01-2024 Patient encounter procedure Maternal Medicine Comment on above: Anatomy Scan OB Routine Start: 11-12-2024 End: 11-12-2024 Distance [facility] 11/12/2024 11:00 AM EDT [facility] Psychiatry [address] [place] [id number] Samaria Haji, PRODUCT REPRESENTATIVE.AGRICULTURAL ECONOMICS PROFESSOR [address] [place] [phone] Provider Ordered Follow Up Psychiatry Comment on above: Provider Ordered Fol low Up Start: 11-03-2024 End: 11-03-2024 Patient encounter procedure Maternal Medicine Comment on above: CL check US 16w OB Routine Start: 10-30-2024 End: 10-30-2024 Follow-up encounter 10/30/2024 2:30 PM EDT [facility] Psychiatry [address] [place] [id number] Samaria Haji, PRODUCT REPRESENTATIVE.AGRICULTURAL ECONOMICS PROFESSOR [address] [place] [phone] 2 month follow up Psychiatry Comment on above: 2 month follow up Start: 10-06-2024 End: 01-05-2025 Chromosome 21 trisomy [Presence] in Blood or Tissue by Cytogenetics [facility] Work Phone: Comment on above: Expected: 10/06/2024 , Expires: 01/05/2025 Start: 10-06-2024 End: 10-06-2024 Patient encounter procedure Maternal Medicine Comment on above: Nuchal OB Routine Start: 09-16-2024 End: 09-16-2024 Distance [facility] 09/16/2024 4:30 PM EST [facility] Psychiatry [address] [place] [address] Samaria Haji, PRODUCT REPRESENTATIVE.AGRICULTURAL ECONOMICS PROFESSOR [address] [place] [phone] PROVIDER ORDERED FOLLOW UP TO DISCUSS MEDICATION Psychiatry Comment on above: PROVIDER ORDERED FOL LOW UP TO DISCUSS MEDICATION Start: 09-08-2024 End: 12-08-2024 ANEMIA REFLEX PANEL ANEMIA REFLEX PANEL Lab Routine 7 weeks gestation of Expected: 09/08/2024, Expires: 12/08/2024 [facility] Work Phone: Comment on above: Expected: 09/08/2024 , Expires: 12/08/2024 Start: 09-08-2024 End: 12-08-2024 Hemoglobin A1c in Blood HEMOGLOBIN A1C Lab Routine 7 weeks gestation of Expected: 09/08/2024, Expires: 12/08/2024 [facility] Comment on above: Expected: 09/08/2024 , Expires: 12/08/2024 Start: 09-08-2024 End: 12-08-2024 Hepatitis B virus surface Ag [Presence] in Serum HEPATITIS B SURFACE ANTIGEN Lab Routine 7 weeks gestation of Expected: 09/08/2024, Expires: 12/08/2024 [facility] Comment on above: Expected: 09/08/2024 , Expires: 12/08/2024 Start: 09-08-2024 End: 12-08-2024 Hepatitis C virus Ab [Presence] in Serum HEPATITIS C ANTIBODY IA WITH CONFIRMATION Lab Routine 7 weeks gestation of Expected: 09/08/2024, Expires: 12/08/2024 [facility] Comment on above: Expected: 09/08/2024 , Expires: 12/08/2024 Start: 09-08-2024 End: 12-08-2024 HIV 1+2 Ab [Presence] in Serum or Plasma by Immunoassay HIV 1/2 COMBO WITH REFLEX TO DIFFERENTIATION Lab Routine 7 weeks gestation of Expected: 09/08/2024, Expires: 12/08/2024 [facility] Comment on above: Expected: 09/08/2024 , Expires: 12/08/2024 Start: 09-08-2024 End: 09-08-2025 OBSTETRIC ULTRASOUND WHI OBSTETRIC ULTRASOUND WHI Anc Imaging Routine 7 weeks gestation of Expected: 09/08/2024, Expires: 09/08/2025 [facility] Comment on above: Expected: 09/08/2024 , Expires: 09/08/2025 Start: 09-08-2024 End: 12-08-2024 RUBELLA IGG ANTIBODY RUBELLA IGG ANTIBODY Lab Routine 7 weeks gestation of Expected: 09/08/2024, Expires: 12/08/2024 [facility] Comment on above: Expected: 09/08/2024 , Expires: 12/08/2024 Start: 09-08-2024 End: 12-08-2024 SYPHILIS TREPONEMAL W/REFLEX SYPHILIS TREPONEMAL W/REFLEX Lab Routine 7 weeks gestation of Expected: 09/08/2024, Expires: 12/08/2024 [facility] Comment on above: Expected: 09/08/2024 , Expires: 12/08/2024 Start: 09-08-2024 End: 12-08-2024 TYPE + SCREEN TYPE + SCREEN Blood Bank Routine 7 weeks gestation of Expected: 09/08/2024, Expires: 12/08/2024 [facility] Comment on above: Expected: 09/08/2024 , Expires: 12/08/2024 Start: 09-08-2024 End: 09-08-2024 Patient encounter procedure 09/08/2024 1:00 PM EST Initial Office Visit OB/Gynecology [address] [place] [id number] Marlee Almanza APRN.CN [address] [place] [id number] New OB LMP 1/2 OB/Gynecology Comment on above: New OB LMP 1/2 Start: 08-28-2024 End: 08-28-2024 Telephone follow-up 08/28/2024 2:30 PM EST [facility] Psychiatry [address] [place] [phone] Samaria Haji, PRODUCT REPRESENTATIVE.AGRICULTURAL ECONOMICS PROFESSOR [address] [place] [phone] follow up-see phone note 08/14 Psychiatry Comment on above: follow up-see phone note 08/14 Start: 07-13-2024 End: 07-13-2024 Follow-up encounter 07/13/2024 1:00 PM EST [facility] Psychiatry [address] [place] [phone] Samaria Haji, PRODUCT REPRESENTATIVE.AGRICULTURAL ECONOMICS PROFESSOR [address] [place] [phone] 2 month follow up Psychiatry Comment on above: 2 month follow up Start: 05-04-2024 End: 05-04-2024 Follow-up encounter 05/04/2024 1:30 PM EDT [facility] Psychiatry [address] [place] [phone] Samaria Haji, PRODUCT REPRESENTATIVE.AGRICULTURAL ECONOMICS PROFESSOR [address] [place] [phone] follow up 3 month Psychiatry Comment on above: follow up 3 month Start: 03-15-2024 Covid-19 Vaccine ( season) Covid-19 Vaccine ( season) [facility] Start: 03-15-2024 Influenza vaccination Influenza Vacc ine (#1) [facility] Start: 02-08-2024 PAP TESTING PAP TESTING [facility] Start: 01-31-2024 End: 01-31-2024 ambulatory 01/31/2024 1:30 PM EDT [facility] Psychiatry [address] [place] [phone] Samaria Haji, PRODUCT REPRESENTATIVE.AGRICULTURAL ECONOMICS PROFESSOR [address] [place] [phone] 2-3 month F/U Psychiatry Comment on above: 2-3 month F/U Start: 01-17-2024 End: 01-17-2024 Follow-up encounter 01/17/2024 9:30 AM EDT [facility] Psychiatry [address] [place] [id number] Samaria Haji, PRODUCT REPRESENTATIVE.AGRICULTURAL ECONOMICS PROFESSOR [address] [place] [id number] 2 TO 3 MONTH FOLLOW UP Psychiatry Comment on above: 2 TO 3 MONTH FOLLOW UP Start: 01-03-2024 Screening for malign ant neoplasm of cervix Cervical Cancer Screening [facility] Start: 11-29-2023 End: 11-29-2023 Patient encounter procedure Radiology Comment on above: Pelvic U/S Irregular bleeding Start: 11-26-2023 End: 11-26-2023 Patient encounter procedure 11/26/2023 4:20 PM EDT Office Visit [facility] [address] [place] [address] [place] [id number] Sherita Mejia PA-C [address] [place] [address] [place] [id number] full skin check [facility] Comment on above: full skin check Start: 07-15-2023 Depression Assessment Depression Ass [facility] Start: 03-15-2023 Covid-19 Vaccine ( season) Covid-19 Vaccine ( season) [facility] Start: 03-15-2023 Influenza vaccination C [facility] Start: 10-04-2022 End: 10-18-2022 SARS-CoV-2 (COVID-19) RNA [Presence] in Respiratory specimen by NIGHAT with probe detection CAREGIVER COVID19 Microbiology Routine Suspected 2019 novel coronavirus infection Expected: 10/04/2022, Expires: 10/18/2022 [facility] Work Phone: Comment on above: Expected: 10/04/2022 , Expires: 10/18/2022 Start: 07-15-2022 DEPRESSION ASSESSMENT DEPRESSION ASS ESSMENT [facility] Start: 03-15-2022 Influenza vaccination INFLUENZA (#1) [facility] Start: 11-07-2021 Iv infusion hydratio n each additional hour HYDRATE IV INFUSION ADD-ON [facility] Work Phone: Start: 11-07-2021 Iv infusion hydratio n initial 31 min-1 hour HYDRATION IV INFUSION INIT [facility] Work Phone: Start: 10-07-2021 Group B Streptococcu s Culture Group B Streptococcus Culture [facility] Work Phone: Start: 10-06-2021 Bacteria identified in Urine by Culture Urine Culture [facility] Work Phone: Start: 10-06-2021 Urine culture Urine Culture [facility] Work Phone: Start: 08-14-2021 Adult depression screening assessment DEPRESSION SCREENING [facility] Start: 07-15-2021 DEPRESSION ASSESSMENT DEPRESSION ASS ESSMENT [facility] Start: 03-27-2011 HPV VACCINE (2 - 3-d ose series) HPV VACCINE (2 - 3-dose series) [facility] Start: 2010 Depression Screening Depression Scre ening [facility] Start: 1997 COVID-19 VACCINE (#1) COVID-19 VACCI NE (#1) [facility] Start: 1997 COVID-19 VACCINE (1) COVID-19 VACCIN E (1) [facility] Start: 1992 COVID-19 VACCINE (#1) COVID-19 VACCI NE (#1) [facility] Bacteria identified in Throat by Culture THROAT CULTURE Microbiology Routine Sore throat Ordered: 12/17/2022 [facility] Work Phone: Comment on above: Ordered: 12/17/2022 BACTERIAL VAGINOSIS NAAT BACTERI AL VAGINOSIS NAAT Lab Routine Encounter for gynecological examination (general) (routine) without abnormal findings Vaginal discharge 01/02/2023 1:48 PM EDT [facility] Work Phone: Beta-hemolytic Streptococcus culture [facility] Chlamydia trachomatis+Neisseria gonorrhoeae DNA [Presence] in Unspecified specimen by NIGHAT with probe detection GONORRHEA/CHLAMYDIA NAAT Lab Routine Encounter for gynecological examination (general) (routine) without abnormal findings Vaginal discharge Screening examination for STD (sexually transmitted disease) 01/02/2023 1:48 PM EDT [facility] Work Phone: OBSTETRIC ULTRASOUND WHI OBSTETR IC ULTRASOUND WHI Anc Imaging Routine 36 weeks gestation of Uterine size-date discrepancy, third trimester Ordered: 11/14/2021 [facility] Work Phone: Comment on above: Ordered: 11/14/2021 End: 09-08-2025 OBSTETRIC ULTRASOUND WHI OBSTETRIC ULTRASOUND WHI Anc Imaging Routine 7 weeks gestation of History of labor Every other week for 4 Occurrences starting 09/08/2024 until 09/08/2025 [facility] Comment on above: Every other week for 4 Occurrences starting 09/08/2024 until 09/08/2025 PAP TEST PAP TEST Lab Kurt jacobs Atypical squamous cells of undetermined significance (ASCUS) on Papanicolaou smear of cervix 01/02/2023 1:48 PM EDT [facility] Work Phone: Patient Education Kick Counts ED False Labor OB Triage: Return to Hospital or Notify Physician if you Experience: [facility] Work Phone: Patient referral [facility] Work Phone: ROUTINE, GR OUP B STREP PCR ROUTINE, GROUP B STREP PCR Microbiology Routine 36 weeks gestation of 11/14/2021 12:25 PM EDT [facility] Work Phone: SURGICAL PATHOLOGY SURGICAL PATH OLOGY Lab Routine Neoplasm of unspecified behavior of bone, soft tissue, and skin 09/30/2023 3:57 PM EDT [facility] Work Phone: Urine culture [facility] End: 12-05-2024 US Pelvis transvaginal US FEMALE PELVIS TRANSVAG Radiology Routine Abnormal uterine bleeding (AUB) 1 Occurrences starting 11/06/2023 until 12/05/2024 [facility] Work Phone: Comment on above: 1 Occurrences starti ng 11/06/2023 until 12/05/2024 [facility] Immunizations Immunization Date Immunization Notes Care Provider Casi ricci 05-02-2023 influenza virus vaccine, unspecified formulation Supriya Valdovinos [facility] 09-15-2021 tetanus toxoid, redu krupa diphtheria toxoid, and acellular pertussis vaccine, adsorbed Erendira Hayes MD Work Phone: [facility] 04-20-2021 influenza virus vaccine, unspecified formulation Samaria Haji APRN.CNP Work Phone: [facility] 10-25-2020 tetanus toxoid, redu krupa diphtheria toxoid, and acellular pertussis vaccine, adsorbed Erendira Hayes MD Work Phone: [facility] Work Phone: 04-03-2019 influenza, injectabl e, quadrivalent, preservative free Erendira Hayes MD Work Phone: [facility] Work Phone: 03-31-2018 influenza, injectabl e, quadrivalent, preservative free Erendira Hayes MD Work Phone: [facility] Work Phone: 12-19-2017 hepatitis A and hepatitis B vaccine Erendira Hayes MD Work Phone: [facility] Work Phone: 12-19-2017 tetanus toxoid, redu krupa diphtheria toxoid, and acellular pertussis vaccine, adsorbed Erendira Hayes MD Work Phone: [facility] Work Phone: 10-22-2017 hepatitis A and hepatitis B vaccine Erendira Hayes MD Work Phone: [facility] Work Phone: 08-01-2017 influenza, injectabl e, quadrivalent, preservative free Erendira Hayes MD Work Phone: [facility] Work Phone: 05-13-2014 influenza, high dose seasonal, preservative-free Erendira Hayes MD Work Phone: [facility] 02-27-2011 hepatitis B vaccine, pediatric or pediatric/adolescent dosage Erendira Hayes MD Work Phone: [facility] Work Phone: 02-27-2011 human papilloma viru s vaccine, quadrivalent Erendira Hayes MD Work Phone: [facility] Work Phone: 04-03-2005 measles, mumps and rubella virus vaccine Erendira Hayes MD Work Phone: [facility] Work Phone: 02-15-2005 diphtheria, tetanus toxoids and pertussis vaccine Erendira Hayes MD Work Phone: [facility] Work Phone: 10-08-1997 diphtheria, tetanus toxoids and pertussis vaccine Erendira Hayes MD Work Phone: [facility] Work Phone: 10-08-1997 poliovirus vaccine, unspecified formulation Erendira Hayes MD Work Phone: [facility] Work Phone: 02-27-1995 diphtheria, tetanus toxoids and pertussis vaccine Erendira Hayes MD Work Phone: [facility] Work Phone: 02-27-1995 haemophilus influenz ae type b vaccine, conjugate unspecified formulation Erendira Hayes MD Work Phone: [facility] Work Phone: 02-27-1995 measles, mumps and rubella virus vaccine Erendira Hayes MD Work Phone: [facility] Work Phone: 02-27-1995 poliovirus vaccine, unspecified formulation Erendira Hayes MD Work Phone: [facility] Work Phone: 04-20-1993 diphtheria, tetanus toxoids and pertussis vaccine Erendira Hayes MD Work Phone: [facility] Work Phone: 04-20-1993 haemophilus influenz ae type b vaccine, conjugate unspecified formulation Erendira Hayes MD Work Phone: [facility] Work Phone: 1992 diphtheria, tetanus toxoids and pertussis vaccine Erendira Hayes MD Work Phone: [facility] Work Phone: 1992 haemophilus influenz ae type b vaccine, conjugate unspecified formulation Erendira Hayes MD Work Phone: [facility] Work Phone: 1992 poliovirus vaccine, unspecified formulation Erendira Hayes MD Work Phone: [facility] Work Phone: 1992 diphtheria, tetanus toxoids and pertussis vaccine Erendira Hayes MD Work Phone: [facility] Work Phone: 1992 haemophilus influenz ae type b vaccine, conjugate unspecified formulation Erendira Hayes MD Work Phone: [facility] Work Phone: 1992 poliovirus vaccine, unspecified formulation Erendira Hayes MD Work Phone: [facility] Work Phone: Payers Date Payer Category Payer Private Health Insurance [id number] 2025 Self-pay [id number] 2024 Medicaid [employer] Member [place] bscriber Plan / Payer (Effective 2024-Present) Name: Marzena Pickering Relation to Subscriber: Self Name: Marzena Pickering Payer ID: [id number] (NAIC) Type: Medicaid Address: [place] [address] [id number] 2024 Medicaid [id number] 2023 Unknown [id number] 2022 Private Health Insurance [id number] 2021 Unknown [id number] 2021 Unknown [employer] E PPO [id number] 2021-Present [phone] [address] [place] [address] PPO [id number] 2020 Unknown [id number] 1992 Unknown [id number] 1992 Unknown [id number] 1992 Unknown [id number] 1992 Unknown [id number] Unknown [id number] Unknown [id number] Unknown [id number] Unknown [id number] Unknown [id number] Social History Date Type Detail Facility Start: 11-24-2020 End: 08-04-2022 Never smoked tobacco (finding) [facility] Start: 1990 Sex Assigned At Female A [facility] Start: 03-10-2018 End: 08-04-2022 Tobacco use and exposure Smokeless tobacco non-user [facility] Start: 10-06-2021 End: 01-25-2025 Alcohol intake Ex-drinker (finding) [facility] Start: 03-10-2018 History SDOH Alcohol Comment Occasional [facility] Start: 05-19-2020 History SDOH Financial 5 [facility] Start: 05-19-2020 History SDOH Food Worry 1 [facility] Start: 05-19-2020 History SDOH Transpo rt Med 2 [facility] Start: 05-19-2020 Education 17 [facility] Start: 03-16-2021 [facility] Start: 1990 Sex Assigned At Not on file C [facility] Start: 09-26-2021 End: 04-19-2022 Exposure to SARS-CoV-2 (event) Not sure [facility] Start: 12-27-2020 End: 11-16-2021 Tobacco smoking status NHIS Unknown if ever smoked [facility] Work Phone: Start: 11-20-2022 End: 01-02-2023 History of Social function [facility] Work Phone: Start: 11-20-2022 End: 01-02-2023 Tobacco use panel [facility] Work Phone: Start: 01-29-2018 How hard is it for y ou to pay for the very basics like food, housing, medical care, and heating Not hard at all [facility] Work Phone: (I/We) worried amelia er (my/our) food would run out before (I/we) got money to buy more. Never true [facility] Work Phone: Start: 07-24-2023 Gender identity Identifies as female gender (finding) [facility] Start: 09-04-2024 Sexual orientation Heterosexual (kailyn cronin) [facility] Goals Date Patient Goal Desired Activity /State Personal health goal Functional Status Date Assessment Result Facility 02-18-2025 Are you deaf, or do you have serious difficulty hearing No 02/18/2025 11:43 PM Soumya Sandy RN No [facility] 02-18-2025 Are you blind, or do you have serious difficulty seeing, even when wearing glasses No 02/18/2025 11:43 PM Soumya Sandy, RON No [facility] 02-18-2025 Do you have serious difficulty walking or climbing stairs No 02/18/2025 11:43 PM Soumya Sandy, RON No [facility] 02-18-2025 Do you have difficul ty dressing or bathing No 02/18/2025 11:43 PM Soumya Sandy, RON No [facility] 02-18-2025 Because of a physica l, mental, or emotional condition, do you have difficulty doing errands alone such as visiting a physician's office or shopping No 02/18/2025 11:43 PM Soumya Sandy RN No [facility] 01-18-2025 Are you deaf, or do you have serious difficulty hearing No 01/18/2025 8:55 AM Navya Titus RN No [facility] Work Phone: 01-18-2025 Are you blind, or do you have serious difficulty seeing, even when wearing glasses No 01/18/2025 8:55 AM Navya Titus RN No [facility] 01-18-2025 Do you have serious difficulty walking or climbing stairs No 01/18/2025 8:55 AM Navya Titus, RON No [facility] 01-18-2025 Do you have difficul ty dressing or bathing No 01/18/2025 8:55 AM Navya Titus, RON No [facility] 01-18-2025 Because of a physica l, mental, or emotional condition, do you have difficulty doing errands alone such as visiting a physician's office or shopping No 01/18/2025 8:55 AM Navya Titus RN No [facility] 10-23-2021 Functional Status [facility] 10-22-2021 Functional Status [facility] 10-22-2021 Functional Status [facility] 10-22-2021 Functional Status [facility] 10-21-2021 Functional Status [facility] 10-21-2021 Functional Status [facility] 10-20-2021 Functional Status [facility] Mental Status Date Assessment Result Facility 02-18-2025 Because of a physica l, mental, or emotional condition, do you have serious difficulty concentrating, remembering, or making decisions No 02/18/2025 11:43 PM EDT Soumya Brown RN No [facility] 01-18-2025 Because of a physica l, mental, or emotional condition, do you have serious difficulty concentrating, remembering, or making decisions No 01/18/2025 8:55 AM EDT Navya Ochoa RN No [facility] 10-23-2021 Mental Status [facility] Clinical Notes 12-26-2020 to 03-31-2025 Anne-Marie Hartley, RON - 03/31/2025 8:52 AM EDT Note Date & Type Note Facility 03-31-2025 Note HNO ID: [id number] Author: ANNE-MARIE HARTLEY RN Service: ? Author Type: Registered Nurse Type: Progress Notes Filed: 03/31/2025 08:53 Note Text: Urine culture results from [facility] Scan on 03/31/2025 8:37 AM by ProviderHillary PA-C: Urine Culture [facility] 03-31-2025 History of Present illness Narrative Urine culture results from [facility] Scan on 03/31/2025 8:37 AM by ProviderHillary PA-C: Urine Culture documented in this encounter [facility] 03-29-2025 History and physical note Note Date/Time March 29, 2025 7:44am [facility] Medical Records Department [address] [place] [address] OB Triage Physician Note 03/29/25515 MR#: [id number] Acct: [id number] Name: MARZENA PICKERING Rep #:[id number] : 1990 34 From: Aby Donovan CNM PCP: Care Physician,No Primary Status :REG CLI Y Location: [address] HPI - General HPI Narrative MARZENA PICKERING, is a 34 F at 36.4 weeks gestation who presents to triage with contractions that started yesterday. Denies any loss of fluid but had vaginal spotting since last night. [facility] Medical History (Updated 03/29/25 @ 05:27 by Aby Donovan CNM) Genital herpes affecting Home Medications ?Medication ?Instructions ?Recorded ?Last Taken ?Type 1 tab PO/SL DAILY Check with 12/27/20 03/28/25 18:00 History primary doctor sertraline 100 mg tablet (Zoloft) 100 mg PO DAILY Chec k with primary 12/27/20 03/28/25 18:00 History doctor 100 mg acyclovir 400 mg tablet 400 mg PO TID Check with [facility] 11/07/21 03/28/25 18:00 History doctor 400 mg ferrous sulfate 325 mg (65 mg 325 mg PO QDAY 03/17/25 03/26/25 18:00 History iron) tablet (Feosol) 325 mg omeprazole 20 mg capsule,delayed 20 mg PO DAILY 03/28/25 18:00 History release 20 mg Allergy/AdvReac Type Severity Reaction Status Date / Time tree nut Allergy Hives Verified 03/29/25 00:31 Family History Sister Family history of defect Surgical History History of surgery Social History adopted: Yes Smoking Status: Never smoker History Elective abortions Hx Para 2 Spontaneous abortions Hx # Term Pregnancies Ectopic pregnancies Hx # Pregnancies Multiple births # of living children ROS Eyes Eyes: Denies blurry vision Cardiovascular Cardiovascular: Reports none; Denies chest pain at rest, chest pain with activity or dizziness Respiratory/Chest Respiratory/Chest: Denies cough or dyspnea Gastrointestinal Gastrointestinal: Reports none and other; Denies diarrhea or vomiting Genitourinary Genitourinary: Denies dysuria Musculoskeletal Musculoskeletal: Reports none Integumentary Integumentary: Reports none; Denies rash Neurologic Neurologic: Denies dizziness, headache(s) or other visual disturbances Psychiatric Psychiatric: Reports none Physical Exam Const alert and no apparent distress General Appearance: cooperative Orientation / Consciousness: awake Exam Limitations: no limitations HEENT normocephalic Eyes General Eye: normal appearance of both eyes Neck full ROM Chest inspection of chest normal Resp normal respiratory effort and normal air movement Effort and Inspection: symmetric chest movement Auscultation: clear to auscultation bilaterally Cardio regular rate GI soft to palpation, non-tender and non-distended Inspection: and other Back/Spine normal ROM Extremity full ROM, normal capillary refill and no calf tenderness Skin no rashes or lesions noted Neuro oriented x3 and CN's II-XII intact bilaterally Psych mental status grossly normal NST FHR Rate Baby A Baseline: 125 Variability:: Moderate Accelerations:: 15 x 15 Decelerations:: None NST Reactive:: Yes FHR Category:: Category I Uterine Activity:: 2-7 minutes and palpate mild and relaxed in between Assessment & Plan (1) contractions: (2) Iron deficiency anemia: (3) History of OCD (obsessive compulsive disorder): (4) HSV-2 seropositive: (5) 36 weeks gestation of : (6) Depression: (7) Genital HSV: (8) Anxiety: (9) Spotting complicating in third trimester: PLAN: Plan CE 2.5/60/-3 Small amount of blood noted with exam IV started and fluid bolus given Extended monitoring - NST reactive Patient desires to be rechecked and if unchanged - desires discharge Dr. Gr notified of A&P and is collaborating physician 03/29/25 0744 <Electronically signed by Aby barker CNM> Date _ Aby Donovan CNM Cosigner Signature (if applicable): Date CC: SEBASTIAN Donovan; No Primary Care Physician ~ Signed [facility] Work Phone: 1(266) 704-651109-15-2025 History and physical note [facility] Medical Records Department [address] [place] [address] OB Triage Physician Note 03/29/25 0516 MR#: [id number] Acct: [id number] Name: MARZENA PICKERING Rep #:[id number] : 1990 34 From: Aby Donovan CNM PCP: Care Physician,No Primary Status :REG CLI Y Location: [address] HPI - General HPI Narrative MARZENA PICKERING, is a 34 F at 36.4 weeks gestation who presents to triage with contractions that started yesterday. Denies any loss of fluid but had vaginal spotting since last night. [facility] Medical History (Updated 03/29/25 @ 05:27 by Aby Donovan CNM) Genital herpes affecting Home Medications ?Medication ?Instructions ?Recorded ?Last Taken ?Type 1 tab PO/SL DAILY Check with 12/27/20 03/28/25 18:00 History primary doctor sertraline 100 mg tablet (Zoloft) 100 mg PO DAILY Che k with [facility] 12/27/20 03/28/25 18:00 History doctor 100 mg acyclovir 400 mg tablet 400 mg PO TID Check with [facility] 11/07/21 03/28/25 18:00 History doctor 400 mg ferrous sulfate 325 mg (65 mg 325 mg PO QDAY 03/17/25 03/26/25 18:00 History iron) tablet (Feosol) 325 mg omeprazole 20 mg capsule,delayed 20 mg PO DAILY 03/28/25 18:00 History release 20 mg Allergy/AdvReac Type Severity Reaction Status Date / Time tree nut Allergy Hives Verified 03/29/25 00:31 Family History Sister Family history of defect Surgical History History of surgery Social History adopted: Yes Smoking Status: Never smoker History Elective abortions Hx Para 2 Spontaneous abortions Hx # Term Pregnancies Ectopic pregnancies Hx # Pregnancies Multiple births # of living children ROS Eyes Eyes: Denies blurry vision Cardiovascular Cardiovascular: Reports none; Denies chest pain at rest, chest pain with activity or dizziness Respiratory/Chest Respiratory/Chest: Denies cough or dyspnea Gastrointestinal Gastrointestinal: Reports none and other; Denies diarrhea or vomiting Genitourinary Genitourinary: Denies dysuria Musculoskeletal Musculoskeletal: Reports none Integumentary Integumentary: Reports none; Denies rash Neurologic Neurologic: Denies dizziness, headache(s) or other visual disturbances Psychiatric Psychiatric: Reports none Physical Exam Const alert and no apparent distress General Appearance: cooperative Orientation / Consciousness: awake Exam Limitations: no limitations HEENT normocephalic Eyes General Eye: normal appearance of both eyes Neck full ROM Chest inspection of chest normal Resp normal respiratory effort and normal air movement Effort and Inspection: symmetric chest movement Auscultation: clear to auscultation bilaterally Cardio regular rate GI soft to palpation, non-tender and non-distended Inspection: and other Back/Spine normal ROM Extremity full ROM, normal capillary refill and no calf tenderness Skin no rashes or lesions noted Neuro oriented x3 and CN's II-XII intact bilaterally Psych mental status grossly normal NST FHR Rate Baby A Baseline: 125 Variability:: Moderate Accelerations:: 15 x 15 Decelerations:: None NST Reactive:: Yes FHR Category:: Category I Uterine Activity:: 2-7 minutes and palpate mild and relaxed in between Assessment & Plan (1) contractions: (2) Iron deficiency anemia: (3) History of OCD (obsessive compulsive disorder): (4) HSV-2 seropositive: (5) 36 weeks gestation of : (6) Depression: (7) Genital HSV: (8) Anxiety: (9) Spotting complicating in third trimester: PLAN: Plan CE 2.5/60/-3 Small amount of blood noted with exam IV started and fluid bolus given Extended monitoring - NST reactive Patient desires to be rechecked and if unchanged - desires discharge Dr. Gr notified of A&P and is collaborating physician 03/29/25 0744 ts CNM> Date _ Aby Donovan SEBASTIAN Cosigner Signature (if applicable): Date CC: SEBASTIAN Donovan; No Primary Care Physician ~ Signed [facility]09-09-2025 Telephone encounter Note* Telephone Encounter - Anjali Guzmán RN - 03/23/2025 12:28 PM EDT Day # 5 since COVID19 symptom onset. Caregiver approved to return to work tomorrow for COVID19 absence per survey. Leadership notified. Doc flowsheets updated. Anjali Guzmán RN [facility]09-09-2025 Miscellaneous Notes* Telephone Encounter - Anjali Guzmán RN - 03/23/2025 12:28 PM EDT Day # 5 since COVID19 symptom onset. Caregiver approved to return to work tomorrow for COVID19 absence per survey. Leadership notified. Doc flowsheets updated. [facility]jali Guzmán RN [facility] Telephone encounter Note * Telephone Encounter - Jessy Segura RN - 03/20/2025 3:28 PM EDT Images from the original note [...] Onset: 03/18/25 -Best email for electronic communication: [email or web address]; -Email sent to leadership: [email or web address] - Employee ID: [id number] Plan - Discussed positive COVID19 result. Reinforced self-isolation, avoiding public areas and gatherings. Mask while home with family and not isolated alone - Advised no work until cleared by Occupational Health. Clearance will be provided through RTW COVID19 questionnaire sent through [employer], followed by clearance email sent to manager integrity (emails will be sent Saturday through Saturday) [...] Pickering Date: 03/20/2025 Time: 3:29 PM Pager/Contact: [phone] [facility]09-06-2025 Miscellaneous Notes* Telephone Encounter - Jessy Segura RN - 03/20/2025 3:28 PM EDT Images from the original note [...] Onset: 03/18/25 -Best email for electronic communication: [email or web address]; -Email sent to leadership: [email or web address] - Employee ID: [id number] Plan - Discussed positive COVID19 result. Reinforced self-isolation, avoiding public areas and gatherings. Mask while home with family and not isolated alone - Advised no work until cleared by Occupational Health. Clearance will be provided through RTW COVID19 questionnaire sent through [employer] message, followed by clearance email sent to manager integrity (emails will be sent Saturday through Saturday) - Advised to contact PCP regarding positive test result/symptom management - Advised to seek evaluation by primary care provider, Express Care, Express Care Online, or ED with worsening or escalating symptoms. - Provided with caregiver follow-up email to preferred e-mail - Advised to call the [employer] Hotline with outstanding questions/comments/concerns. Signature: Jessy Segura RN Patient Name: Marzena Pickering Date: 03/20/2025 Time: 3:29 PM Pager/Contact: [phone] documented in this encounterFulton County Health Center09-03-2025 Evaluation note* Diagnosis Onset Date Resolution Status Admit Date 34 weeks gestation of acute March 17 8:25pm contractions acute Mar 8:25pm 36 weeks gestation of acute March 29, 2025 12:08am Anxiety acute March 12:08am Depression acute March 12:08am Genital HSV acute March 12:08am History of OCD (obsessive compulsive disorder) acute March 152024 12:08am HSV-2 seropositive acute 2024 12:08am Iron deficiency anemia acute Se ptember 2024 12:08am contractions acute Mar 12:08am Spotting complicating in third trimester acute Sep tem2024 12:08am [facility] Work Phone: 1(941) 618-680809-03-2025 History and physical note [facility] Medical Records Department [address] [place] [address] OB Triage Physician Note 03/17/252035 MR#: [id number] Acct: [id number] Name: MARZENA PICKERING Rep #:[id number] : 1990 34 From: Miriam Gr MD PCP: Care Physician,No Primary Status :REG CLI Y Location: EU152-5 HPI - General General Date of Service: 03/17/25 HPI Narrative MARZENA PICKERING, is a 34 F @ 34.6 weeks who presents c/o contractions. reports has been not feeling great- no fevers - but is not drinking much water. denies VB, LOF. PFSH PFSH Medical History (Updated 03/17/25 @ 20:[address] Miriam Ramsey MD) Genital herpes affecting Home Medications ?Medication ?Instructions ?Recorded ?Last Taken ?Type 1 tab PO/SL DAILY Check with 12/27/20 10/07/21 07:00 History primary doctor sertraline 100 mg tablet (Zoloft) 100 mg PO DAILY Che k with [facility] 12/27/20 10/07/21 07:00 History doctor acyclovir 400 mg tablet 400 mg PO TID Check with [facility] 11/07/21 11/07/21 History doctor ferrous sulfate 325 [...] for dc home if NSt reactive 03/17/252041 Chrissy BENITEZ> Date _ Miriam Ramsey MD Cosigner Signature (if applicable): Date CC: Dr Miriam Ramsey MD; No Primary Care Physician ~ Signed [facility]09-02-2025 Note Indication Evaluation of growth. Uterine size [...] EFW (oz) 10 oz EFW by: Hadlock (CPU-SP-KX-FL) Extended Privacy Analyst 3.6 mm Extremities / Bony Struc FL [...] By: Kailyn Dobbs RDMS Read By: Chris Lappen, M.D.MATERNAL [id number] NoteHNO ID: [id number] Author: MARLEE ALMANZA APRN.SEBASTAIN Service: ? Author Type: Blind Installer Type: Progress Notes Filed: 03/05/2025 14:55 Note [...] weeks or sooner if needed Marlee Almanza APRN.[facility]08-22-2025 History of Present illness Narrative* Marlee Almanza APRN.SARITA - 03/05/2025 2:42 PM EDT ALIX-S: Marzena Pickering is a 34 year [...] needed Marlee Almanza APRN.CNM documented in this encounterFulton County Health Center08-22-2025 Instructions* Patient Instructions* Saul Cherry LPN - 03/05/2025 2:20 PM EDT SEQUENTIAL SCREENINGS The [facility] offers sequential screenings for women who are interested in screenings for chromosomal abnormalities and certain defects during a . The sequential screen combinesultrasound and blood tests to determine the risk [...] this testing. It will require an appointment withour waste minimization technician. This is not an ultrasound performed [...] the above symptoms, contact our office at [phone] and ask to speak with anurse. After hours, you can call doctors registry at [phone] OR call [facility] at [phone] ask to have the doctor interior design consultant paged. If you consider this an emergency, dial 03-15-2 or go to your nearest emergency department. NEED HELP? Are you dealing with a violent or abusive relationship? Are you a victim of rape or sexual assult? Call [facility] ([facility] 24 hour Crisis Hotline: 445.921.5408 or 690-930-7833. MANUAL Your Guide to a Healthy manual is now on-line. Visit [email or web address] to download your free copy documented in this encounterFulton County Health Center08-12-2025 Telephone encounter Note * Telephone Encounter - Marlee Almanza APRN.CNM - 02/23/2025 2:29 PM EDT Reviewed at visit. Marlee Almanza APRN.CNM [facility]08-12-2025 Miscellaneous Notes* Telephone Encounter - Marlee Almanza APRN.CNM - 02/23/2025 2:29 PM EDT Reviewed at visit. Marlee Almanza APRN.CNM documented in this encounterFulton County Health Center08-11-2025 Progress note* Quick Notes - Marlee Almanza APRN.CNM - 02/22/2025 1:38 PM EDT ALIX-S: Marzena Pickering is a 34 year old female who presents at 31w4d with NIKKI:04/22/2025, by Last Menstrual Period for a routine visit. Denies headache, visual changes, chest pain, shortness of breath, vaginal bleeding, leakage of fluid, or dysuria. Seen for contractions, no cervical change and no further contractions, D/C home. Increased chest discomfort and difficulty with nausea. TakingZofran and Pepcid. O: See flow sheet Gen: [...] or sooner if needed Marlee Almanza APRN.CNM [facility]08-11-2025 Miscellaneous Notes* Quick Notes - Marlee Almanza APRN.CNM - 02/22/2025 1:38 PM EDT ALIX-S: Marzena Pickering is a 34 year old female who presents at 31w4d with NIKKI:04/22/2025, by Last Menstrual Period for a routine visit. Denies headache, visual changes, chest pain, shortness of breath, vaginal bleeding, leakage of fluid, or dysuria. Seen for contractions, no cervical change and no further contractions, D/C home. Increased chest discomfort and difficulty with nausea. TakingZofran and Pepcid. O: See flow sheet Gen: [...] needed Marlee Almanza APRN.CNM documented in this encounterFulton County Health Center08-11-2025 Instructions* Patient Instructions* Irina Price MA - 02/22/2025 1:34 PM EDT SEQUENTIAL SCREENINGS The [facility] offers sequential screenings for women who are interested in screenings for chromosomal abnormalities and certain defects during a . The sequential screen combinesultrasound and blood tests to determine the risk [...] this testing. It will require an appointment withour waste minimization technician. This is not an ultrasound performed [...] the above symptoms, contact our office at [phone] and ask to speak with anurse. After hours, you can call doctors registry at [phone] OR call [facility] at [phone] ask to have the doctor interior design consultant paged. If you consider this an emergency, dial 91-7 or go to your nearest emergency department. NEED HELP? Are you dealing with a violent or abusive relationship? Are you a victim of rape or sexual assult? Call [facility] ([place]) 24 hour Crisis Hotline: 277.899.4729 or 831-318-2464. MANUAL Your Guide to a Healthy manual is now on-line. Visit [email or web address] to download your free copy documented in this encounterFulton County Health Center08-07-2025 NoteHNO ID: [id number] Author: RUTH TOLLIVER MD Service: Obstetrics Author [...] found under the Get Images tab in [employer]. 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 History of threatened labor in G1 that required admission but ultimately delivered at term. She denies leakage of fluid, vaginal bleeding, reports movement. REVIEW OF SYSTEMS: GENERAL: No fever or chills. RESPIRATORY: No shortness of breath. CARDIOVASCULAR: Negative for chest pain or leg swelling. GI: No nausea, vomiting, diarrhea, or constipation. : No history of dysuria, frequency or incontinence [employer]: Negative for vaginal bleeding. Objective LAST VITALS: Pulse: 69 BP: 121/71 Resp: 18 Temp: 36 ?C (96.8 ?F) SpO2: 100 % Weight: 78.9 kg (174 lb) SENSITIVE EXAMINATION CONSENT: Participation of a fellow, resident, medical student, or advanced practice provider student in performing the sensitive examination was discussed with the patient or authorized printing supplies sales representative. The patient or authorized printing supplies sales representative has agreed to proceed with the sensitive [...] - tracing reassuring - Received care at [place] with meter repair shop supervisor, next appointment 02/22 Contributions to note made [...] Pickering DATE: February 18, 2025 TIME: 9:41 [facility]08-07-2025 NoteHNO ID: [id number] Author: IRLANDA BANKS RN Service: Nursing Author [...] 2052 Complete Time: 2112 (02/18/252112 : Irlanda Banks, RON) Indications: R/O PTL Patient Reason For: Monitor baby NST Explanation: yes Acoustic Stimulator: Yes (02/18/252112 : Irlanda Banks, RON) Interventions: Other (See Comment) (none) (02/18/252112 : Irlanda Banks, RON) MONITORING/ASSESSMENT: Baseline: 130 bpm (02/18/252112 : Irlanda Banks, RN) Variability: Moderate (6-25 bpm) (02/18/252112 : Irlanda Banks, RON) Accelerations: Present (02/18/252112 : Irlanda Banks RN) Decelerations: Decelerations: None (02/18/252112 : Irlanda Banks RN) Contractions: Irregular (02/18/252112 : Irlanda Banks RN) Frequency: 1-6 (02/18/252112 : Irlanda Banks RN) Above information forwarded to Dr. Taylor (02/18/252112 : Irlanda Banks RN) for final review and interpretation. SIGNATURE: Irlanda Banks RN PATIENT NAME: Marzena Pickering DATE: February 18, 2025 TIME: 9:29 [facility]07-31-2025 NoteHNO ID: [id number] Author: MARLEE ALMANZA APRN.CNM Service: ? Author Type: Blind Installer Type: Progress Notes Filed: 02/11/2025 09:31 Note Text: ALIX-S: Marzena Pickering is a 34 year old female who presents at 19e1fqzve NIKKI:04/22/2025, by Last Menstrual Period for a [...] weeks or sooner if needed Marlee Almanza APRN.[facility] History of Present illness Narrative* Marlee Almanza APRN.CNM - 02/11/2025 9:21 AM EDT ALIX-S: Marzena Pickering is a 34 year old female who presents at 03o3fhaap NIKKI:04/22/2025, by Last Menstrual Period for a routine visit. Denies headache, visual changes, chest pain, shortness of breath,vaginal bleeding, leakage of fluid, or dysuria. O: [...] needed Marlee Almanza APRN.CNM documented in this encounterFulton County Health Center07-31-2025 Instructions* Patient Instructions* Candelaria gNuyễn MA - 02/11/2025 9:10 AM EDT SEQUENTIAL SCREENINGS The [facility] offers sequential screenings for women who are interested in screenings for chromosomal abnormalities and certain defects during a . The sequential screen combinesultrasound and blood tests to determine the risk [...] this testing. It will require an appointment withour waste minimization technician. This is not an ultrasound performed [...] the above symptoms, contact our office at [phone] and ask to speak with anurse. After hours, you can call doctors registry at [phone] OR call [facility] at [phone] ask to have the doctor interior design consultant paged. If you consider this an emergency, dial 9--0 or go to your nearest emergency department. NEED HELP? Are you dealing with a violent or abusive relationship? Are you a victim of rape or sexual assult? Call [facility] ([place]) 24 hour Crisis Hotline: 861.993.9624 or 345-127-5108. MANUAL Your Guide to a Healthy manual is now on-line. Visit [email or web address] to download your free copy documented in this encounterFulton County Health Center07-15-2025 NoteHNO ID: [id number] Author: SELAM LOUISE OD Service: ? Author Type: CATCHER PLUG Type: Progress Notes Filed: 01/26/2025 09:14 Note [...] others. I have seen and examined Marzena Bray Ladan. I have discussed the case and the management of this patient's care with the Resident/Fellow, if applicable. I also have reviewed and agree with the assessment and plan as stated above and agree with all of its relevant components. Selam Louise OD January 25, 2025 4:00 [facility]07-15-2025 History of Present illness Narrative* Selam Louise, OD - 01/26/2025 9:11 AM EDT 1. Conjunctival hemorrhage of left eye (Primary) [...] and plan as stated above and agree withall of its relevant components. Selam Louise, REGAN January 25, 2025 4:00 PM documented in this encounterFulton County Health Center07-14-2025 Progress note* Quick Notes - Marlee Almanza APRN.SEBASTIAN - 01/25/2025 1:52 PM EDT ALIX-S: Marzena Pickering is a 34 year [...] or sooner if needed Marlee Almanza APRN.CNM [facility]07-14-2025 Miscellaneous Notes* Quick Notes - Marlee Almanza APRN.CNM - 01/25/2025 1:52 PM EDT ALIX-S: Marzena Pickering is a 34 year [...] needed Marlee Almanza APRN.CNM documented in this encounterFulton County Health Center07-14-2025 Instructions* Patient Instructions* Saul Cherry LPN - 01/25/2025 1:30 PM EDT SEQUENTIAL SCREENINGS The [facility] offers sequential screenings for women who are interested in screenings for chromosomal abnormalities and certain defects during a . The sequential screen combinesultrasound and blood tests to determine the risk [...] this testing. It will require an appointment withour waste minimization technician. This is not an ultrasound performed [...] the above symptoms, contact our office at [phone] and ask to speak with anurse. After hours, you can call doctors registry at [phone] OR call [facility] at [phone] ask to have the doctor interior design consultant paged. If you consider this an emergency, dial 1-9-4 or go to your nearest emergency department. NEED HELP? Are you dealing with a violent or abusive relationship? Are you a victim of rape or sexual assult? Call [facility] ([place]) 24 hour Crisis Hotline: 988.266.6908 or 965-466-5380. MANUAL Your Guide to a Healthy manual is now on-line. Visit [email or web address] to download your free copy documented in this encounterFulton County Health Center06-18-2025 Progress note* Quick Notes - Marlee Almanza APRN.CNM - 12/30/2024 1:18 PM EDT NATIS: Marzena Pickering is a 34 year old [...] RTO in 4 weeks Marlee Almanza APRN.CNM [facility]06-18-2025 Miscellaneous Notes* Quick Notes - Marlee Almanza APRN.CNM - 12/30/2024 1:18 PM EDT ALIX-S: Marzena Pickering is a 34 year [...] weeks Marlee Almanza APRN.CNM documented in this encounterFulton County Health Center06-18-2025 Instructions* Patient Instructions* Marlee Almanza APRN.CNM - 12/30/2024 1:04 PM [...] the above symptoms, contact our office at [phone] and ask to speak with anurse. After hours, you can call doctors registry at [phone] OR call [facility] at [phone] ask to have the doctor interior design consultant paged. If you consider this an emergency, dial 9-2-2 or go to your nearest emergency department. NEED HELP? Are you dealing with a violent or abusive relationship? Are you a victim of rape or sexual assult? Call [facility] ([facility] 24 hour Crisis Hotline: 599.194.8316 or 420-365-2307. MANUAL Your Guide to a Healthy manual is now on-line. Visit [email or web address] to download your free copy documented in this encounterFulton County Health Center05-20-2025 NoteHNO ID: [id number] Author: MARLEE ALMANZA APRN.CNM Service: ? Author Type: Blind Installer Type: Progress Notes Filed: 12/01/2024 15:20 Note Text: NATIS: Marzena Pickering is a 34 year old [...] call RTO in 4 weeks Marlee Almanza APRN.[facility]05-01-2025 Instructions* Patient Instructions* Samaria Haji APRN.AGRICULTURAL ECONOMICS PROFESSOR - 11/12/2024 2:03 PM EDT We discussed your mental health and current medications: - Continue taking Zoloft at your current dose. I have sent a refill to the [facility]. Please ensure you have [...] is needed, consider resuming therapy. While in-person therapyhas been challenging due to childcare needs, virtual therapy may be an option to explore if you feel ready. Follow-up: - Your next appointment is scheduled for Saturday, February 05, at 11:30 AM. Please let us know if you need to reschedule. - If you have any questions or concerns before your next visit, do not hesitate to contact our office. For those experiencing a suicidal crisis: --call the National Suicide Prevention Lifeline at 98 (858-520-1564) --text the Crisis Text Line (text HOME to 975649) --call 911 and let them know you are having a mental health crisis or go to your nearest Emergency Room for stabilization. --You can also call Mobile Crisis at 258-613-2725. -- You may call the department appointment line at [phone] to schedule your appointment. -- Please call my nurse at [phone] or send me a message in [employer] with any questions or concerns between appointments. documented in this encounterFulton County Health Center05-01-2025 NoteHNO ID: [id number] Author: SAMARIA HAJI APRN.CNP Service: ? Author [...] visit. Either the patient or their legal printing supplies sales representative has been informed of the risks and benefits of -- and alternatives to -- treatment through a remote evaluation and consents to proceed with the evaluation remotely. Recording using [employer] software for draft documentation of the visit was discussed with the patient/authorized printing supplies sales representative; all questions welcomed and answered. Patient/authorized printing supplies sales representative agreed to proceed CC: Outpatient follow-up and safety monitoring of previously prescribed psychiatric medication, psychotherapy or other treatment HPI: Patient is a 34-year-old female with a history of anxiety and depression, currently 17 weeks , presenting for follow-up. 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 She is currently taking sertraline and feels [...] on File Prior to Visit Medication Sig [id number] 28 mg-800 mcg- 200 mg cap Take 1 capsule by mouth once daily. aspirin, enteric coated (ECOTRIN LOW STRENGTH) 81 mg EC tablet Take 1 tablet by mouth once daily. ond (more content not included)...[facility]05-01-2025 History of Present illness Narrative* Samaria Haji, PRODUCT REPRESENTATIVE.AGRICULTURAL ECONOMICS PROFESSOR - 11/12/2024 11:01 AM EDT FOLLOW UP - PSYCHIATRIC PROGRESS NOTE Visit Type: Virtual Visit utilizing two-way audio and video for at least a portion of the visit. Consent for virtual visit obtained verbally. Confidentiality limitations with virtual visits reviewed with the patient and guardian, if present, who have accepted the risk verbally prior to proceeding wi th encounter. I have communicated my name and active licensure. The patient's identity and physicallocation were verified at the time of this visit. Either the patient or their legal printing supplies sales representative has been informed of the risks and benefits of -- and alternatives to -- treatment through a remote evaluation and consents to proceed with the evaluation remotely. Recording using ambient Z[employer] software for draft documentation of the visit was discussed with the patient/authorized printing supplies sales representative; all questions welcomed and answered. Patient/authorized printing supplies sales representative agreed to proceed CC: Outpatient follow-up and safety monitoring of previously prescribed psychiatric medication, psychotherapy or other treatment HPI: Patient is a 34-year-old female with a history of anxiety and depression, currently 17 weeks , presenting for follow-up. 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 She is currently taking sertraline and feels that it is effectively managing her anxiety and mood without significant side effects, though she notes occasional increased tiredness, which she believes may also be related to her . She is also taking aspirin, ondansetron as needed, and vitamins. She describes ongoing stressors, including her stepfather's remarriage and the sale of their house,which contribute to a sense of being overwhelmed. [...] Although he apologizes and attempts to communicate throughher sister, she feels that he expects her to quickly move on from his actions. She is uncertain if he is currently attending therapy, as she does not communicate with him much. She has not attended talk therapy in the past few weeks due to the logistical challenges of findingbabysitters for her children. She prefers in-person therapy [...] on File Prior to Visit Medication Sig [id number] 28 mg-800 mcg- 200 mg cap Take [...] mg tab Take 1 tablet by mouth oncedaily. No current facility-administered medications on file prior [...] current dosage. - Sent prescription refill to [facility]. 2. Encounter for long-term (current) use of medications (Z79.899) Patient is on Zoloft, aspirin, Zofran as needed, and vitamins. - Continue current medications. 3. Recurrent major depressive disorder, in partial remission (F33.41) Patient reports improvement in mood since distancing from boyfriend. Continues to experience fatigue, likely multifactorial due to medication and . Has not attended therapy sessions recentlydue to logistical challenges. - Continue Zoloft at current dosage. - Encouraged resumption of therapy sessions; discussed potential for virtual therapy to accommodatechildcare needs. - Scheduled follow-up appointment in 3 [...] 2024 TIME: 2:01 PM documented in this encounterFulton County Health Center04-22-2025 Telephone encounter Note * Telephone Encounter - Marlena Olsen LPN - 11/03/2024 4:39 PM EDT Offered 11/12/24 visit @ 11 am to patient. Waiting for Pt to confirm. Marlena Olsen LPN [facility]04-22-2025 Miscellaneous Notes* Telephone Encounter - Marlena Olsen LPN - 11/03/2024 4:39 PM EDT Offered 11/12/24 visit @ 11 am to patient. Waiting for Pt to confirm. Marlena Olsen LPN documented in this encounterFulton County Health Center04-22-2025 Telephone encounter Note * Telephone Encounter - Marlee Almanza APRN.CNM - 11/03/2024 4:31 PM EDT Sent. Marlee Almanza APRN.CNM [address]22-2025 Miscellaneous Notes* Telephone Encounter - Marlee Almanza APRN.CNM - 11/03/2024 4:31 PM EDT Buck. Marlee Almanza APRN.CNM documented in this encounter16 [address] Miscellaneous Notes* Quick Notes - Marlee Almanza APRN.CNM - 11/03/2024 2:30 PM EDT ALIX-S: Marzena Pickering is a 34 year [...] weeks Marlee Almanza APRN.CNM documented in this encounterFult[facility]04-22-2025 Progress note* Quick Notes - Marlee Almanza APRN.CNM - 11/03/2024 2:30 PM EDT ALIX-S: Marzena Pickering is a 34 year [...] RTO in 4 weeks Marlee Almanza APRN.CNM [facility]04-22-2025 Instructions* Patient Instructions* Qian Nichols MA - 11/03/2024 2:21 PM EDT SEQUENTIAL SCREENINGS The [facility] offers sequential screenings for women who are interested in screenings for chromosomal abnormalities and certain defects during a . The sequential screen combinesultrasound and blood tests to determine the risk [...] this testing. It will require an appointment withour waste minimization technician. This is not an ultrasound performed [...] the above symptoms, contact our office at [phone] and ask to speak with anurse. After hours, you can call doctors registry at [phone] OR call [facility] at [phone] ask to have the doctor interior design consultant paged. If you consider this an emergency, dial 9-5-3 or go to your nearest emergency department. NEED HELP? Are you dealing with a violent or abusive relationship? Are you a victim of rape or sexual assult? Call [facility] ([place]) 24 hour Crisis Hotline: 361.408.9202 or 218-097-6350. MANUAL Your Guide to a Healthy manual is now on-line. Visit [email or web address] to download your free copy documented in this encounterFulton County Health Center04-18-2025 NoteHNO ID: [id number] Author: SAMARIA HAJI APRN.CNP Service: ? Author Type: Nurse Practitioner Type: Progress Notes Filed: 10/30/2024 14:41 Note Text: Patient did not log in for her virtual visit with the provider today.[facility]04-18-2025 History of Present illness Narrative* Samaria Haji APRN.CNP - 10/30/2024 2:40 PM EDT Patient did not log in for her virtual visit with the provider today. documented in this encounterFulton County Health Center03-25-2025 Progress note* Quick Notes - Marlee Almanza APRN.CNM - 10/06/2024 12:39 PM EDT ALIX-S: Marzena Pickering is a 34 year [...] RTO in 4 weeks Marlee Almanza APRN.CNM [facility]03-25-2025 Miscellaneous Notes* Quick Notes - Marlee Almanza APRN.CNM - 10/06/2024 12:39 PM EDT ALIX-S: Marzena Pickering is a 34 year [...] weeks Marlee Almanza APRN.CNM documented in this encounterFulton County Health Center03-25-2025 NoteHNO ID: [id number] Author: MARLEE ALMANZA APRN.CNM Service: ? Author Type: Blind Installer Type: Progress Notes Filed: 10/06/2024 12:48 Note Text: [facility]03-25-2025 History of Present illness Narrative* Marlee Almanza APRN.CNM - 10/06/2024 12:37 PM EDT ALIX- documented in this encounterFulton County Health Center03-05-2025 Telephone encounter Note * Telephone Encounter - Samaria Haji APRN.CNP - 09/16/2024 4:31 PM EST Patient had to cancel her visit with the provider today as she got called into work. Could you please reach out and help the patient schedule an appointment sooner than her October visit. [facility]03-05-2025 Miscellaneous Notes* Telephone Encounter - Samaria Haji APRN.CNP - 09/16/2024 4:31 PM EST Patient had to cancel her visit with the provider today as she got called into work. Could you please reach out and help the patient schedule an appointment sooner than her October visit. * Telephone Encounter - Marlena Olsen LPN - 09/16/2024 1:31 PM EST Call placed to patient (x2) with message left with today's VV information for today. Hopefully patient signs on for visit. Marlena Olsen LPN documented in this encounterFulton County Health Center03-05-2025 History of Present illness Narrative* Samaria Haji APRN.BROOKE - 09/16/2024 4:30 PM EST Patient sent a message on mychart sharing that she would not be able to make it to the appointment as she got called into work. Provider will work on getting patient rescheduled. documented in this encounterFulton County Health Center03-05-2025 NoteHNO ID: [id number] Author: SAMARIA HAJI APRN.CNP Service: ? Author Type: Nurse Practitioner Type: Progress Notes Filed: 09/16/2024 16:30 Note Text: Patient sent a message on mychart sharing that she would not be able to make it to the appointment as she got called into work. Provider will work on getting patient rescheduled.[facility] 09-16-2024 Telephone encounter Note* Telephone Encounter - Marlena Olsen LPN - 09/16/2024 1:31 PM EST Call placed to patient (x2) with message left with today's VV information for today. Hopefully patient signs on for visit. Marlena Olsen LPN [facility]03-05-2025 Telephone encounter Note* Telephone Encounter - Samaria Haji APRN.CNP - 09/16/2024 11:30 AM EST Scheduled for an appointment today to address this in detail. [facility]03-05-2025 Miscellaneous Notes* Telephone Encounter - Samaria Haji APRN.CNP - 09/16/2024 11:30 AM EST Scheduled for an appointment today to address this in detail. documented in this encounterFulton County [facility] Center03-04-2025 Telephone encounter Note * Telephone Encounter - Samaria Haji APRN.CNP - 09/15/2024 11:32 AM EST Noted. Thank you. [facility]03-04-2025 Miscellaneous Notes* Telephone Encounter - Samaria Haji APRN.CNP - 09/15/2024 11:32 AM EST Noted. Thank you. * Telephone Encounter - Marlena Olsen LPN - 09/15/2024 11:09 AM EST Call placed to patient, offering VV tomorrow 09/16/24 @ 4:30 pm to discuss medication side effects with Provider. Message left for patient to confirm visit via Novatris or by calling [phone]. Marlena Olsen LPN documented in this encounterFulton County Health Center03-04-2025 Telephone encounter Note * Telephone Encounter - Marlena Olsen LPN - 09/15/2024 11:09 AM EST Call placed to patient, offering VV tomorrow 09/16/24 @ 4:30 pm to discuss medication side effects with Provider. Message left for patient to confirm visit via Novatris or by calling [phone]. Marlena Olsen LPN [facility]02-21-2025 NoteHNO ID: [id number] Author: MARLEE ALMANZA APRN.SEBASTIAN Service: ? Author Type: Blind Installer Type: Progress Notes Filed: 09/10/2024 12:49 Note Text: Plasterer Spot offered: Patient declines. 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 INITIAL OB ASSESSMENT HPI: [...] Status:Co-habitating Partner: Name: Norberto Age: 37 Occupation: Office Services Coordinator Gender: Male PAST MEDICAL HISTORY Diagnosis Date [...] discussed with the Patient or Patient's Authorized Client Support Representative. As applicable, any other physician, advance practice provider, medical student, or other health professional student that will be observing or involved in the sensitive examination for educational or training purposes was discussed with the Patient or Authorized Client Support Representative. The Patient or Authorized Client Support Representative has agreed to proceed with the sensitive [...] OB labs including STD/HIV. Reviewed midwifery and route sales delivery driver services that are available. 2) Screening: Hemoglobin [...] aneuploidy screening was provided. The patient chooses toproceed with First trimester early anatomy ultrasound (12-13w6d) [...] Follow up in 4 weeks or sooner prn. Marlee Almanza APRN.CNM documented in this encounterFulton County Health Center02-21-2025 Instructions* Patient Instructions* Qian Nichols MA - 09/04/2024 3:10 PM EST Please select the following link to access the [facility] Your Guide to a Healthy . [email or web address] Please select the following link to access the [facility] Your Guide to a Healthy . [email or web address] documented in this encounterFulton County Health Center02-18-2025 NoteHNO ID: [id number] Author: AMAYA DEAL RT(R) Service: ? Author [...] PATIENT PRESENTS WITH AN IMPLANTABLE OR ATTACHED TRACK MAN: N/A RADIOLOGY DEPARTMENT: Ultrasound PERIPHERAL IV DATA: Not applicable SIGNED BY: RT Fred(R) September 01, 2024 10:03 PMUnSt. Vincent Williamsport [id number] [id number] (AGENT OF COVID-19) RNA: Not detected INFLUENZA A RNA: Detected INFLUENZA B RNA: Not detected RESPIRATORY SYNCYTIAL VIRUS (RSV) RNA: Not detectedUnnovant health, encompass health HospitalComment on above:Performed By: #### [id number] ####[facility] LABCLIA [id number] [place], [place] [address]YGWMIDBAPTIST MED[facility]02-18-2025 NoteHNO ID: [id number] Author: ARIANNA BYNUM APRN.BROOKE Service: ? Author Type: Nurse Practitioner [...] her children had influenza. 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 [...] by mouth once daily. [DISCONTINUED] multivit no.38-folate 6-patiot (PRENATE AM) 1-500 mg tab Take 1 [...] or erythematous. Nose: Nose normal. Mouth/Throat: Lips: Fossil. No lesions. Mouth: Mucous membranes are moist. [...] Breath sounds: Normal b (more content not included)...[facility] [id number] History of Present illness Narrative* Arianna Bynum APRN.AGRICULTURAL ECONOMICS PROFESSOR - 09/01/2024 6:19 PM EST September 01, 2024 Subjective Chief Complaint: Vomiting [...] her children had influenza. 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 [...] mg tab Take 1 tablet by mouth oncedaily. Review of Systems HENT: Positive for congestion [...] Tenderness present. A middle ear effusion is present.There is no impacted cerumen. Tympanic membrane is not perforated or erythematous. Left Ear: Ear canal and external ear normal. Tenderness present. A middle ear effusion is present. There is no impacted cerumen. Tympanic membrane is not perforated or erythematous. Nose: Nose normal. Mouth/Throat: Lips: Fossil. No lesions. Mouth: Mucous membranes are moist. [...] APRN.CNP This note was partially generated using NPR voice recognition system and there may be [...] or data may have been deleted if notrelevant for today. Plan as outlined above. documented in this encounterFulton [facility] Center02-18-2025 Instructions* Patient Instructions* Arianna Bynum APRN.CNP - 09/01/2024 6:18 PM EST Recommend ER for further evaluation documented in this encounterFulton County Health Center02-14-2025 Instructions* Patient Instructions* Samaria Haji APRN.CNP - 08/28/2024 3:06 PM [...] the National Suicide Prevention Lifeline at 988 (169-886-3280) --text the Crisis Text Line (text HOME to 612199) --call 911 and let them know you are having a mental health crisis or go to your nearest Emergency Room for stabilization. --You can also call Mobile Crisis at [phone]. -- You may call the department appointment line at [phone] to schedule your appointment. -- Please call my nurse at [phone] or send me a message in Getfugu with any questions or concerns between appointments. documented in this encounterFulton County Health Center02-14-2025 History of Present illness Narrative* Samaria Haji APRN.BROOKE - 08/28/2024 2:30 PM EST Images from the original note were not [...] accepted the risk verbally prior to proceeding wi th encounter. I have communicated my name and active licensure. The patient's identity and physicallocation were verified at the time of this visit. Either the patient or their legal printing supplies sales representative has been informed of the risks and [...] from it. Will send an update via Novatris if she continues to notice apathy. It [...] mg tab Take 1 tablet by mouth oncedaily. No current facility-administered medications on file prior to visit. ROS: See HPI PFSH: See HPI VITAL SIGNS: There were no vitals filed for this visit. Last 3 Encounter BP Readings: Date: BP: 01/02/2023 98/60 12/17/2022 114/75 10/04/2022 111/71 MENTAL STATUS EXAMINATION: Appearance: Casually dressed and groomed Behavior: Behaves appropriately during the encounter Social relatedness: Euthymic Speech/Language: The patient demonstrates appropriate tone, prosody, leyssa, phonetics, and syntax Mood: euthymic Affect: Full [...] Recurrent major depressive disorder, in partial remission ([facility]) Encounter for long-term (current) use of medications [...] 2024 TIME: 2:33 PM documented in this encounterFulton County Health Center02-14-2025 NoteHNO ID: [id number] Author: SAMARIA HAJI APRN.CNP Service: ? Author [...] visit. Either the patient or their legal printing supplies sales representative has been informed of the risks and [...] from it. Will send an update via Novatris if she continues to notice apathy. It [...] this visit. Last 3 (more content not included)...[facility]02-11-2025 Telephone encounter Note* Telephone Encounter - Yeni Craig RN - 08/25/2024 10:15 AM EST Patient notified. She declined Zofran for now, but will contact office if symptoms persist and she changes her mind. Yeni Craig RN [facility]02-11-2025 Miscellaneous Notes* Telephone Encounter - Yeni Craig RN - 08/25/2024 10:15 AM EST Patient notified. She declined Zofran for now, but will contact office if symptoms persist and she changes her mind. Yeni Craig RN * Telephone Encounter - Marlee Almanza APRN.CNM - 08/25/2024 9:46 AM EST That is fine, can send zofran prescription if desires. Marlee Almanza APRN.CNM * Telephone Encounter - Anne-Marie Hartley RN - 08/24/2024 2:44 PM EST LMP 07/16/24 approximately 5w4d Patient called with c/o nausea. No vomiting. Asking for a prescription for Zofran. Discussed Vitamin B6 and Unisom as the first line choice. 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 Patient agreeable to tryingthe Vitamin B6. States she felt like she was going to pass out at work. Not eating very much with the nausea. Had some diarrhea recently, but not any longer. Scheduled patient for her NOB with ALIX. Noneed to call patient back unless provider has further recommendations. Anne-Marie Hartley RN documented in this encounterFulton County Health Center02-11-2025 Telephone encounter Note * Telephone Encounter - Marlee Almanza APRN.CNM - 08/25/2024 9:46 AM EST That is fine, can send zofran prescription if desires. Marlee Almanza APRN.CNM [facility]02-10-2025 Telephone encounter Note* Telephone Encounter - Anne-Marie Hartley RN - 08/24/2024 2:44 PM EST LMP 07/16/24 approximately 5w4d Patient called with c/o nausea. No vomiting. Asking for a prescription for Zofran. Discussed Vitamin B6 and Unisom as the first line choice. 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 Patient agreeable to tryingthe Vitamin B6. States she felt like she was going to pass out at work. Not eating very much with the nausea. Had some diarrhea recently, but not any longer. Scheduled patient for her NOB with ALIX. Noneed to call patient back unless provider has further recommendations. Anne-Marie Hartley, RN [facility]02-03-2025 Telephone encounter Note* Telephone Encounter - Marlee Almanza APRN.CNM - 08/17/2024 1:30 PM EST Noted and will follow up with patient at her appointment. Thank you, Marlee Almanza APRN.CNM [facility]02-03-2025 Miscellaneous Notes* Telephone Encounter - Marlee Almanza APRN.CNM - 08/17/2024 1:30 PM EST Noted and will follow up with patient at her appointment. Thank you, Marlee Almanza APRN.CNM * Telephone Encounter - Samaria Haji APRN.CNP - 08/14/2024 11:43 AM EST Spoke with the patient about her . [...] with considerations to and at that appointment. * Telephone Encounter - Christel Thompson RN - 08/14/2024 11:28 AM EST Pt calling in to let Samaria Marlyn [...] about the Wellbutrin? Pt is leaving for [place] today-her flight leaves at 220 pm today. States okay to leave a detailed voicemail. documented in this encounterFulton County Health Center01-31-2025 Telephone encounter Note * Telephone Encounter - Samaria Haji APRN.CNP - 08/14/2024 11:43 AM EST Spoke with the patient about her . [...] with considerations to and at that appointment. [facility]01-31-[facility] Telephone encounter Note* Telephone Encounter - Christel Thompson RN - 08/14/2024 11:28 AM EST Pt calling in to let Samaira Marlyn know that she recently found out [...] about the Wellbutrin? Pt is leaving for [place] today-her flight leaves at 220 pm today. States okay to leave a detailed voicemail. [facility]11-08-2024 Telephone encounter Note* Telephone Encounter - Samaria Haji APRN.CNP - 05/22/2024 5:03 PM EST Addressed in a separate encounter. [facility]11-08-[facility] Miscellaneous Notes* Telephone Encounter - Samaria Haji APRN.CNP - 05/22/2024 5:03 PM EST Addressed in a separate encounter. documented in this encounterFulton County Health Center10-22-2024 Instructions* Patient Instructions* Samaria Haji APRN.CNP - 05/05/2024 12:47 AM EDT Halley Ivan, It was good to talk with you today. Below is a summary of the plan that we discussed during your appointment for reference. Of course, if you have any questions or concerns do not hesitate to reach out to me via a message or call. Samaria Crockett APRN.CNP PLAN AND FOLLOW UP: TREATMENT PLAN: [...] from it. Will send an update via Novatris if she continues to notice apathy. For those experiencing a suicidal crisis: --call the National Suicide Prevention Lifeline at 988 (928-809-3985) --text the Crisis Text Line (text HOME to 149927) --call 911 and let them know you are having a mental health crisis or go to your nearest Emergency Room for stabilization. --You can also call Mobile Crisis at [phone]. Next appointment: --Schedule in 2 months or sooner if needed -- You may call the department appointment line at [phone] to schedule your appointment. -- Please call my nurse at [phone] or send me a message in Getfugu with any questions or concerns between appointments. documented in this encounterFulton County Health Center10-21-2024 NoteHNO ID: [id number] Author: SAMARIA HAJI APRN.CNP Service: ? Author [...] visit. Either the patient or their legal printing supplies sales representative has been informed of the risks and [...] as his kids go to school in [place] as that was very far drive from [...] record, Labs DIAGNOSIS: [place] (more content not included)...[facility]10-21-[facility] History of Present illness Narrative* Samaria Haji, CRUZITO.AGRICULTURAL ECONOMICS PROFESSOR - 05/04/2024 1:38 PM EDT Images from the original note [...] accepted the risk verbally prior to proceeding encounter. I have communicated my name and active licensure. The patient's identity and physicallocation were verified at the time of this visit. Either the patient or their legal printing supplies sales representative has been informed of the risks and [...] as his kids go to school in [place] as that was very far drive from [...] mg tab Take 1 tablet by mouth oncedaily. No current facility-administered medications on file prior [...] from it. Will send an update via Novatris if she continues to notice apathy. MEDICATION [...] 2024 TIME: 1:38 PM documented in this encounterFulton County Health Center08-23-2024 Telephone encounter Note * Telephone Encounter - Anay Diaz RN - 03/06/2024 3:55 PM EDT Patient notified and voiced understanding. The following approved medications have been transmitted electronically. Requested Prescriptions Signed Prescriptions Disp Refills fluconazole (DIFLUCAN) 150 mg tablet 1 tablet 0 Sig: Take 1 tablet by mouth one time only for 1 dose. Authorizing Provider: ANNE-MARIE RODLAN Pharmacy Information Pharmacy Address [id number] [address] Anay Diaz RN [facility]08-23-2024 Miscellaneous Notes* Telephone Encounter - Anay Diaz RN - 03/06/2024 3:55 PM EDT Patient notified and voiced understanding. The following approved medications have been transmitted electronically. Requested Prescriptions Signed Prescriptions Disp Refills fluconazole (DIFLUCAN) 150 mg tablet 1 tablet 0 Sig: Take 1 tablet by mouth one time only for 1 dose. Authorizing Provider: ANNE-MARIE ROLDAN Pharmacy Information Pharmacy Address [id number] [facility] [address] [place], [place] [id number] Anay Diaz RN * Telephone Encounter - Anne-Marie Roldan MD - 03/06/2024 3:52 PM EDT Order sent * Telephone Encounter - Anay Diaz RN - 03/06/2024 9:50 AM EDT Patient calling with complaints of a yeast infection. Current symptoms are vaginal itching. Denies any burning, discharge or odor. Patient was recently on an antibiotic. Patient asking for Diflucan as she does not want to do Monistat. Patient is leaving for [place] [facility]. Pharmacy is up to date. Can you address? Anay Diaz RN documented in this encounterFulton County Health Center08-23-2024 Telephone encounter Note * Telephone Encounter - Anne-Marie Roldan MD - 03/06/2024 3:52 PM EDT Order sent [facility]08-23-2024 Telephone encounter Note* Telephone Encounter - Anay Diaz RN - 03/06/2024 9:50 AM EDT Patient calling with complaints of a yeast infection. Current symptoms are vaginal itching. Denies any burning, discharge or odor. Patient was recently on an antibiotic. Patient asking for Diflucan as she does not want to do Monistat. [place]. Pharmacy is up to date. Can you address? Anay Diaz RN [facility]07-19-2024 History of Present illness Narrative* Samaria Haji, PRODUCT REPRESENTATIVE.AGRICULTURAL ECONOMICS PROFESSOR - 01/31/2024 1:40 PM EDT Images from the original note [...] accepted the risk verbally prior to proceeding wi th encounter. I have communicated my name and active licensure. The patient's identity and physicallocation were verified at the time of this visit. Either the patient or their legal printing supplies sales representative has been informed of the risks and [...] surgery. Did get 04/02 access [facility] the [facility] and will have help from boyfriend to watch the kids. Feels that this will help. She was not going to scientology for a bit after mother's . Shares that starting therapy made her more angry about things that happened to mom. Started going back to scientology 3 weeks ago. It felt good going [...] mg tab Take 1 tablet by mouth oncedaily. No current facility-administered medications on file prior [...] which included preparing to see the patient, [id number] patient care, completing clinical documentation, and counseling and educating the patient/family/caregiver, ordering medications/labs. ADD ON PSYCHOTHERAPY CODE : No SIGNATURE: Samaria Haji APRN.CNP PATIENT NAME: Marzena Pickering DATE: January 31, 2024 TIME: 1:40 PM documented in this encounterFulton County Health Center07-05-2024 History of Present illness Narrative* Samaria Haji APRN.CNP - 01/17/2024 10:08 AM EDT Patient sent a Novatris message this morning to reschedule the visit due to being mandated to work. Provider has asked the account support associate to reach out to the patient to help in rescheduling her appointment. Will provide refills if needed. documented in this encounterFulton County [facility] Center06-05-2024 Telephone encounter Note * Telephone Encounter - Anay Diaz RN - 12/18/2023 4:30 PM EDT Order pended. Anay Diaz RN [facility]06-05-[facility]24 Miscellaneous Notes* Telephone Encounter - Anay Diaz RN - 12/18/2023 4:30 PM EDT Order pended. Anay Diaz RN documented in this encounterFulton County Health Center04-24-2024 Telephone encounter Note * Telephone Encounter - Anay Diaz RN - 11/06/2023 4:00 PM EDT Patient notified and voiced understanding. Appointments scheduled. Anay Diaz RN [place] [id number] Miscellaneous Notes* Telephone Encounter - Anay Diaz RN - 11/06/2023 4:00 PM EDT Patient notified and voiced understanding. Appointments scheduled. Anay Diaz RN * Telephone Encounter - Marlee Almanza APRN.CNM - 11/06/2023 3:20 PM EDT Please schedule patient for appointment and ultrasound same day. Marlee Almanza APRN.CNM * Telephone Encounter - Anay Diaz RN - 11/06/2023 2:59 PM EDT Patient called in regards to message below. [...] just worried. Please address. Anay Diaz RN * Telephone Encounter - Farhana Ku - 11/06/2023 2:49 PM EDT Patient calling stating she is have menstrual issues. October 21- was her last cycle and she startedwith brown spotting today. Please advise and call patient. documented in this encounterF[facility]04-24-2024 Telephone encounter Note * Telephone Encounter - Marlee Almanza APRN.CNM - 11/06/2023 3:20 PM EDT Please schedule patient for appointment and ultrasound same day. Marlee Almanza APRN.CNM [facility]04-24-2024 Telephone encounter Note* Telephone Encounter - Anay Diaz RN - 11/06/2023 2:59 PM EDT Patient called in regards to message below. [...] just worried. Please address. Anay Diaz RN [facility]04-24-[facility]24 Telephone encounter Note* Telephone Encounter - Farhana Ku - 11/06/2023 2:49 PM EDT Patient calling stating she is have menstrual issues. October 21- was her last cycle and she startedwith brown spotting today. Please advise and call patient. [facility] Work Phone: [phone] 213-765904-19-2024 Instructions* Patient Instructions* Samaria Haji APRN.AGRICULTURAL ECONOMICS PROFESSOR - 11/01/2023 12:57 PM EDT Halley Ivan, It was good to meet and talk with you today. Below is a summary of the plan that we discussed during your appointment for reference. Of course, if you have any questions or concerns do not hesitate to reach out to me via a message or call. Bon, Samaria Haji APRN.CNP PLAN AND FOLLOW UP: 1) Increase Zoloft to 150 mg dose once daily to help with anxiety. 2) Continue Wellbutrin at the same dose. 3) Continue talk therapy. For those experiencing a suicidal crisis: --call the National Suicide Prevention Lifeline at 988 (333.838.3068) --text the Crisis Text Line (text HOME to 111569) --call 171 and let them know you are having a mental health crisis or go to your nearest Emergency Room for stabilization. --You can also call Mobile Crisis at [phone]. Next appointment: --Schedule in 2 to 3 months or sooner if needed -- You may call the department appointment line at [phone] to schedule your appointment. -- Please call my nurse Shannon at [phone] or send me a message in Getfugu with any questions or concerns between appointments. documented in this encounterFulton [facility] Center04-19-2024 History of Present illness Narrative* Samaria Haji APRN.CNP - 11/01/2023 10:08 AM EDT Images from the original note were [...] accepted the risk verbally prior to proceeding wi th encounter. I have communicated my name and active licensure. The patient's identity and physicallocation were verified at the time of this visit. Either the patient or their legal printing supplies sales representative has been informed of the risks and [...] mg tab Take 1 tablet by mouth oncedaily. No current facility-administered medications on file prior [...] the National Suicide Prevention Lifeline at 988 (929-863-0011) --text the Crisis Text Line (text HOME to 068414) --call 911 and let them know you are having a mental health crisis or go to your nearest Emergency Room for stabilization. --You can also call Mobile Crisis at [phone]. MEDICATION CHANGES: See above for changes Risks [...] which included preparing to see the patient, vknn-rs-coxd patient care, completing clinical documentation, and counseling and educating the patient/family/caregiver, ordering medications/labs. ADD ON PSYCHOTHERAPY CODE : No SIGNATURE: Samaria Haji APRN.CNP PATIENT NAME: Marzena Pickering DATE: November 01, 2023 TIME: 10:08 AM documented in this encounterFulton County [facility] Center04-12-2024 Miscellaneous Notes* Addendum Note - Samaria Haji APRN.CNP - 10/25/2023 5:16 PM EDTAddended by: SAMARIA HAJI on: 10/25/2023 05:16 PM Modules accepted: Orders documented in this encounterFulton County Health Center03-18-2024 Instructions* Patient Instructions* Sherita Mejia PA-C - 09/30/2023 3:55 PM EDT POST-BIOPSY [...] results within 14 days. Office Phone #: [phone] documented in this encounterFulton County Health Center03-18-2024 History of Present illness Narrative* Sherita Mejia PA-C - 09/30/2023 3:36 PM EDT This is a 33 year old White [...] The specimen was sent to dermatopathology at [facility]. - LIDOCAINE 1 %-EPINEPHRINE 1:100,000 INJECTION [...] procedures): All specimen containers correctly labeled. Martha Erlindaharrison documented in this encounterFulton County Health Center02-12-2024 History of Present illness Narrative* Supriya Valdovinos, [facility] - 08/26/2023 1:00 PM EST HP HOLISTIC PSYCH INTAKE Virtual Visit Consent: SERVICE/CPT CODE: Telehealth Virtual Visit [facility] and the need for ongoing mental health services, thefollowing visit was completed virtually to reduce the risk of COVID-19 exposure. Obtained consent for the present appointment, and consent related to virtual visits was provided verbally after information was sent via Getfugu or read to patient if [facility] not available. Individuals present:Self Date of Service: [...] during interview MEMORY: short term intact and project construction manager intact INSIGHT/JUDGEMENT: fair Current view: Showing all answers [facility] Mychart Additional Demo Question 08/26/2023 12:43 PM EST - Filed by Patient Is this visit related to an accident, other than Workers' Compensation? No Is this visit related to Workers' Compensation? No Do you need an endless belt finisher? No [facility] Mychart Zoom Message Question 08/26/2023 12:44 PM EST - Filed by Patient Install Zoom I have Zoom installed [facility] Patient Evaluation Intake Form Question 08/26/2023 12:50 PM EST - Filed by Patient Phone Number: [phone] If necessary, may we leave a message [...] feel emotionally sup-ported in these relationships? Current anglican or spiritual affiliations? Yes How do you like to spend your recreation time? Na What are your goals for our time together? Move past feelinngs [facility] [place] Depression Checklist Question 08/26/2023 12:51 [...] your career, your hobbies, your family, or yourfriends? Somewhat Loss of motivation: Do you feel [...] get a good night's sleep? Or are youexcessively tired and sleeping too much? Moderate Loss [...] (range: 0 - 45) 14 (Mild Depression) [facility] [place] Anxiety Inventory Question 08/26/2023 [...] Text Line: Text the word HOME to [phone] Copeline: [phone] SALAZAR Mir documented in this encounterFulton County Health Center09-21-2023 History of Present illness Narrative* Samaria Haji, PRODUCT REPRESENTATIVE.[facility] - 04/04/2023 10:58 AM EDT Images from the original note were not included. PSYC FOLLOW UP - PSYCHIATRIC PROGRESS NOTE DIAGNOSIS: Generalized Anxiety Disorder MDD, recurrent, moderate GAF: -60-51 Moderate symptoms or moderate difficulty in social, occupational or school functioning. TREATMENT PLAN: Complete the serum test ordered by her meter repair shop supervisor. Start Pristiq to address symptoms if test [...] licensure. The patient's identity and physical location wereverified at the time of this visit. Either the patient or their legal printing supplies sales representative has been informed of the risks and benefits of -- and alternatives to -- treatment through a remote evaluation andconsents to proceed with the evaluation remotely. HPI: [...] physically. I feel more like myself. She willsleep a lot of hours but does not [...] the weight gain side effects that she hasexperienced before. She has tried melatonin, benadryl, and tylenol PM for sleep difficulties. Her thyroid level was normal when assessed in the past by her PCP. Her kids are sleeping through the night. She still doesn'thave the energy to do things that she [...] which included preparing to see the patient, avft-ob-zlhn patient care, completing clinical documentation, and counseling and educating the patient/family/caregiver, ordering medications/labs. Samaria Haji APRN.CNP April 04, 2023 10:58 AM This note was partially generated using NPR voice recognition system. Note was reviewed for accuracy. There may be minor misspellings or grammar miscues with NPR voice recognition. documented in this encounterFulton County Health Center08-25-2023 Instructions* Patient Instructions* Samaria Haji APRN.CNP - 03/08/2023 3:02 PM [...] - Call the National Suicide Hotline at 9-485-UKKAUSH ( ) or 5-243-984-TALK (6292) - Text 9GOPE to 863584 Medication Update: Stop Prozac 2. Start Desvenlafaxine (Pristiq) 25 mg ER - take 1 tablet once every morning with breakfast. Next appointment: SaturdayMarch 15 at 5 pm Virtual -- You may call the department appointment line at [phone] to schedule your appointment. -- Please call my nurse Shannon at [phone] or send me a message in Getfugu with any questions or concerns between appointments. documented in this encounterFulton County Health Center08-25-2023 History of Present illness Narrative* Samaria Haij APRN.CNP - 03/08/2023 2:23 PM EDT PSYC FOLLOW UP - PSYCHIATRIC PROGRESS NOTE [...] licensure. The patient's identity and physical location wereverified at the time of this visit. Either the patient or their legal printing supplies sales representative has been informed of the risks and benefits of -- and alternatives to -- treatment through a remote evaluation andconsents to proceed with the evaluation remotely. HPI: Marzena Pickering is a 32 year old Female with a history of GUIDO presenting today for follow-up. Date of last visit: 11/20/2022 Plan from last visit: Increase Venlafaxine to 75 mg dose. Consider gradual increase as needed to manage symptoms and as tolerated. Start hydroxyzine as needed to manage hives associated with anxiety. 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 Follow up in March. [...] which included preparing to see the patient, heui-ot-ycdb patient care, completing clinical documentation, and counseling and educating the patient/family/caregiver, ordering medications/labs. Samaria Haji APRN.CNP March 08, 2023 2:23 PM This note was partially generated using NPR voice recognition system. Note was reviewed for accuracy. There may be minor misspellings or grammar miscues with NPR voice recognition. documented in this encounterFulton County Health Center08-24-2023 History of Present illness Narrative* Samaria Haji APRN.CNP - 03/07/2023 10:34 PM EDT Patient had to reschedule her appointment as she was called into work. documented in this encounterFulton County Health Center06-21-2023 Instructions* Patient Instructions* Marlee Almanza APRN.CNM - 01/02/2023 1:23 PM EDT Images from the original note were not included. To schedule an appointment please contact us at [phone], Option 1. For information pertaining to genetics services at the [facility], you can visit us online [email or web address]. If you do not have access to information online, please contact us at the number above and we can send you information. *Clairvee is the only oral probiotic that has been proven to target the vagina's microbiome, restoring lactobacilli, and thus reducing the recurrence of BV and yeast. Rigorous clinical trials show that Clairvee significantly reduces these annoying recurrences while balancing the vagina's microbiomeand pH. Clairvee should be taken orally each [...] penis or fingers just before sex. Coconut, [place], Avocado or Peanut oil- natural oils are [...] products are available in pharmacies and online. 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 * Telephone Encounter - Cookie MARTINEZ - 12/17/2022 10:08 AM EDT [facility] called and stated that they needed quantity directions for prescription. Can you please call them back? documented in this encounterFulton County Health Center06-05-2023 Instructions* Patient Instructions* Anjali Valero APRN.CNP - 12/17/2022 9:10 AM [...] ER for further evaluation. documented in this encounterFulton County Health Center06-05-2023 History of Present illness Narrative* Anjali Valero APRN.CNP - 12/17/2022 9:00 AM EDT December 17, 2022 HPI: Marzena Pickering is [...] mg tab Take 1 tablet by mouth oncedaily. Review of Systems Constitutional: Negative for chills [...] OFLOXACIN 0.3 % EYE DROPS Anjali Valero APRN.BROOKE The above reflects my independent exam and [...] relevant for today. Plan as outlined above. * Beba Jj LPN - 12/17/2022 8:47 AM EDT Strep swab collected. Patient tolerated well. Beba Jj LPN documented in this encounterFulton County Health Center05-09-2023 Instructions* Patient Instructions* Samaria Haji APRN.BROOKE - 11/20/2022 9:30 AM [...] - Call the National Suicide Hotline at 4-524-IQHADRI ( ) or 5-964-171-TALK (6743) - Text 9TEYF to 355841 Medication Update: Venlafaxine 75 mg ER - take 1 capsule once daily. 2. Hydroxyzine 25 mg - take 1/2 to 1 tablet up to three times daily as needed for hives and anxiety. Next appointment: --Schedule in March. -- You may call the department appointment line at [phone] to schedule your appointment. -- Please call my nurse Shannon at [phone] or send me a message in Getfugu with any questions or concerns between appointments. documented in this encounterFulton County Health Center05-09-2023 History of Present illness Narrative* Samaria Haji APRN.CNP - 11/20/2022 9:06 AM EDT Images from the original note were [...] hives associated with anxiety. 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 Follow up in March. [...] licensure. The patient's identity and physical location wereverified at the time of this visit. Either the patient or their legal printing supplies sales representative has been informed of the risks and benefits of -- and alternatives to -- treatment through a remote evaluation andconsents to proceed with the evaluation remotely. HPI: [...] in side effects. She has tolerated the Venlafaxine.Recently increased the dose to 75 mg. Has noticed that she is feeling fatigued still during the day. We discussed changing the time of Venlafaxine to after her work hours or prior to sleep. Patient has noticed a decrease in her anxiety induced hives but she is still experiencing them. Sheis open to trying hydroxyzine as needed to [...] which included preparing to see the patient, gffq-og-omoa patient care, completing clinical documentation, and counseling and educating the patient/family/caregiver, ordering medications/labs and communicating with other healthcare providers. Samaria Haji APRN.CNP November 20, 2022 9:06 AM This note was partially generated using NPR voice recognition system. Note was reviewed for accuracy. There may be minor misspellings or grammar miscues with NPR voice recognition. documented in this encounterFulton County Health Center04-21-2023 Instructions* Patient Instructions* Samaria aHji APRN.CNP - 11/02/2022 9:52 AM EDT Halley [...] - Call the National Suicide Hotline at 5-327-TZZVNYO ( ) or 7-077-969-TALK (4404) - Text 4HOPE to 464719 Medication Update: - Celexa 40 mg - take 1/2 tablet once daily for 14 days and then discontinue. - Venlafaxine 37.5 mg XR - take 1 capsule once daily with food for 14 days, then take 2 capsules once daily after that with food. Next appointment: November 20 at 9 am Virtual -- Please call my nurse Shannon at [phone] or send me a message in Getfugu with any questions or concerns between appointments. documented in this encounterFulton County Health Center04-21-2023 History of Present illness Narrative* Samaria Haji APRN.CNP - 11/02/2022 8:53 AM EDT Images from the original note were [...] licensure. The patient's identity and physical location wereverified at the time of this visit. Either the patient or their legal printing supplies sales representative has been informed of the risks and benefits of -- and alternatives to -- treatment through a remote evaluation andconsents to proceed with the evaluation remotely. AGE: [age] year old RACE: White MARITAL STATUS: Single (never ). Has 2 children who are 1 and 2 years old. Her mom helps herwatch the children. 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 She has recently started at [employer] and this has helped with work related stress. REFERRAL SOURCE: Blind Installer - Marlee Almanza APRN CHIEF COMPLAINT: I started zoloft during as I was struggling with depression and anxiety. It worked for my first . [place] that Zoloft was wearing off during second [...] Catastrophic thinking related to kids. Memory: Fair, toy maker, good short term. Anxiety: moderate to high [...] It is hard for her to find truck loader for her children. Current Geospatial Information Scientist: no Last Hospitalization: Denies hospitalization. ECT: No [...] No history of use or dependence SPIRITUALITY: Nondenominational. She goes to scientology every week. PFSH: Marzena Pickering is the youngest of 2 siblings. Has a good relationship with her elder sister. She lives 10 minutes away. The patient was born and raised in [place], [place]. She completed College. She described her [...] population = 50. Five points is a clinicallymeaningful difference.) 08/14/2020 11/02/2022 Physical T-Score 61.9 57.7 [...] which included preparing to see the patient, xqng-ct-ttot patient care, completing clinical documentation, obtaining and/or reviewing separately obtained history, counseling and educating the patient/family/caregiver, ordering medications, eliot ts, or procedures, communicating with other HCPs (not separately reported), independently interpreting results (not separately reported), and communicating results to the patient/family/caregiver. ADD ON PSYCHOTHERAPY CODE : No SIGNATURE: Samaria Haji APRN.CNP PATIENT NAME: Marzena Pickering DATE: November 02, 2022 TIME: 8:54 AM PAGER : documented in this encounterFulton County Health Center04-03-2023 Miscellaneous Notes* Telephone Encounter - Yulia Horowitz LPN - 10/15/2022 3:47 PM EDT Please see pt's mycCrowdbaront message and further advise. Yuila Horowitz LPN documented in this encounterFulton County Health Center03-28-2023 Miscellaneous Notes* Telephone Encounter - Iliana Torres RN - 10/09/2022 1:59 PM EDT Caregiver called after completing survey. Discussed symptoms and she feels ready to RTW. Fatigue and aches have improved. She is taking Tylenol for headache and will be completing antiviral today. CGmeets criteria and is cleared as of 10/09/22. Foundry Engineer will be notified. documented in this encounterFulton County Health Center03-28-2023 Miscellaneous Notes* Telephone Encounter - Ole Marcos APRN.CNP - 10/09/2022 8:47 AM EDT Survey completed--NOT cleared. Wanted outreach. Straight to VM, sent MCM. Ole Marcos APRN.CNP documented in this encounterFulton County Health Center03-27-2023 Miscellaneous Notes* Telephone Encounter - Gracy Woodruff APRN.CNP - 10/08/2022 6:22 PM EDT Day 5 since COVID19 symptom onset. Survey complete. Not cleared to RTW. Declining [facility]Health outreach at this time. Will continue to follow Survey results. Gracy Woodruff APRN.CNP Occupational Health documented in this encounterFulton County Health Center03-23-2023 Miscellaneous Notes* Telephone Encounter - Lexus Emerson RN - 10/04/2022 6:37 PM EDT Images from the original note were not included. Symptomatic Caregiver COVID Call Patient Name: Marzena Pickering Date of : 1990 Primary Care Physician: No primary care provider on file. Service Date: 10/04/2022 Service Time: 6:37 PM Symptomatic Caregiver COVID Call - confirmed: Yes -Caregiver employee ID: -[id number] -Symptom onset: -10/04/22 Covid Immunization Dates Overdue - COVID-19 VACCINE (1) Overdue - never done No completion, postpone, frequency change, or communication history exists for this topic. Recent travel outside [place]: Cares for COVID-19 positive patients: Known positive COVID-19 contacts: Previously positive for COVID: Comorbidities: [] Obesity [] Diabetes Mellitus [] Asthma/COPD [] [] Other: Symptoms: [] Mild - FIGUREOA sore throat, body aches, positive cantigen test [...] Time: 6:37 PM Pager/Contact: documented in this encounterFulton County Health Center01-21-2023 Instructions* Patient Instructions* Anne-Marie Chacon APRN.BROOKE - 08/04/2022 11:36 AM EST Continue Tylenol as needed for symptoms relief. You may also try otc cold and cough medication documented in this encounterFulton County Health Center01-21-2023 History of Present illness Narrative* Anne-Marie Chacon APRN.BROOKE - 08/04/2022 11:29 AM EST August 04, 2022 Subjective Chief Complaint: Sinusitis and Upper Respiratory Infection (Patient stated that cough with chest congestion x 1 week. Chest congestion has gotten worse in the last few days. OTC: Tylenol and cough drops. ) HPI: Marzena Pickering is a 32 year old female who presents today for headache, dry cough, and chestcongestion that started about a week ago after [...] mg tab Take 1 tablet by mouth oncedaily. Review of Systems Constitutional: Negative. HENT: Negative [...] - BENZONATATE 200 MG CAPSULE Anne-Marie Chacon APRN.AGRICULTURAL ECONOMICS PROFESSOR documented in this encounterFulton County Health Center08-24-2022 Miscellaneous Notes* Telephone Encounter - Yeni Craig RN - 03/07/2022 11:21 AM EDT Last saw ALIX 12/26/21 for PP visit. Requested Prescriptions Pending Prescriptions Disp Refills sertraline (ZOLOFT) 100 mg tablet [Pharmacy Med Name: SERTRALINE HCL 100 MG TABLET] 30 tablet 10 Sig: take 1 tablet by mouth once daily RX INSTRUCTIONS: Pharmacy initiated this request. No need to notify patient. Yeni Craig RN documented in this encounterFulton County Health Center06-15-2022 Miscellaneous Notes* Telephone Encounter - Yeni Craig RN - 12/27/2021 4:06 PM EDT Letter faxed. Yeni Craig RN * Telephone Encounter - Joya Ball RN - 12/26/2021 4:10 PM EDT I informed patient and she requested to have it faxed to her work but was unable to provide fax number. She will call back with fax number. * Telephone Encounter - Marlee Almanza APRN.CNM - 12/26/2021 3:32 PM EDT Signed. Marlee Almanza APRN.CNM * Telephone Encounter - Joya Ball RN - 12/26/2021 2:50 PM EDT Rebecca, A draft letter is on your desk for review. documented in this encounterFulton County Health Center06-14-2022 Instructions* Patient Instructions* Marlee Almanza APRN.CNM - 12/26/2021 11:35 AM EDT Patient assistance program-[employer]://[employer]/ https://[email or web address].gov/residents/resources/ivxwu-thm-ygksz-certificates [facility] Oral Contraceptives: The Pill Beginning the [...] reversible control being used today. Millions of womenrely on oral contraceptives as their control method. It is important to have an examination by your physician to determine if the pill is safe for you. There are several advantages associated with the pill: it is 97-98% effective; may improve acne; periods are more regular and less painful; there is less iron deficiency anemia in pill users. longterm use is associated with a decreased incidence of ovarian and uterine cancer. There is also no evidence that the pill increases the incidenceof any cancer. How Oral Contraceptives Work Oral contraceptives come in two varieties. One is the combination pill which contains both estrogenand progesterone. Combination pills are considered 98-99% effective [...] effective than the combination pill in preventing preg christiano. Oral contraceptives prevent ovulation (release of an egg from the ovary) by suppressing the pituitary gland s action. The pill does NOT prevent sexually transmitted disease. Obtaining a Prescription It is important to see your doctor before starting oral contraceptives so that you can have a full medical history taken and a physical examination given. Certain medical conditions may make the pillinappropriate for you, therefore it is very important to be honest and as complete as possible withthe information you share with your doctor. The [...] and mild fluid retention. There is no project construction manager weight gain with the use of the [...] see if there is any physical cause andpossibly change to another control pill. Problems: 1. [...] the pill for the rest of the month.Or you can stop the pill and start [...] for necessary health information. documented in this encounterF[facility] History of Present illness Narrative* Marlee Almanza APRN.CNM - 12/26/2021 11:02 AM EDT VISIT Marzena Pickering is a 31 year old year old here for visit. Delivery Summary: 11/16/2021 By SEBASTIAN Stahl 6lb 11oz. [place] ROS/ Recovery: Feeding: Breast feeding problems: None Menses since delivery: cramping Menstrual pattern prior to : Regular periods [place] since delivery: Not resumed Depression: denies symptoms [...] external genitalia normal, normal Bartholin's glands, urethra, [place]'s glands, no vulvar lesions, no cervical lesions, [...] discussed with the patient the risks, benefits, mechanismof action and alternatives to combined hormonal contraceptive use. No medical contraindications. Reviewed risk of blood clot, stroke and heart attack with hormonal contraception. Reviewed warning signs ACHES. Discussed stopping control 4 weeks prior to scheduled surgery if will be immobile.I reviewed with her the administration options and [...] smear Marlee Almanza APRN.CNM documented in this encounterFulton [facility] Center05-13-2022 History of Present illness Narrative* Yeni Craig RN - 11/24/2021 2:46 PM EDT Patient delivered via by Maribeth on 11/16/21 at [facility]. See OB history. Yeni Craig RN documented in this encounterFulton County [facility] Center05-03-2022 Miscellaneous Notes* Quick Notes - Marlee Almanza APRN.CNM - 11/14/2021 11:47 AM EDT ALIX-S: Marzena Pickering is a 31 year [...] today Marlee Almanza APRN.CNM documented in this encounterFulton County [facility] Center05-03-2022 Instructions* Patient Instructions* Gracy Cardenas MA - 11/14/2021 11:25 AM EDT SEQUENTIAL SCREENINGS The [facility] offers sequential screenings for women who are interested in screenings for chromosomal abnormalities and certain defects during a . The sequential screen combinesultrasound and blood tests to determine the risk [...] this testing. It will require an appointment withour waste minimization technician. This is not an ultrasound performed [...] the above symptoms, contact our office at [phone] and ask to speak with anurse. After hours, you can call doctors registry at [phone] OR call [facility] at [phone] ask to have the doctor interior design consultant paged. If you consider this an emergency, dial 9-1-8 or go to your nearest emergency department. NEED HELP? Are you dealing with a violent or abusive relationship? Are you a victim of rape or sexual assult? Call [facility] ([facility] 24 hour Crisis Hotline: 163.571.8536 or 491-593-4582. MANUAL Your Guide to a Healthy manual is now on-line. Visit [email or web address] to download your free copy documented in this encounterFulton County [facility] Center04-19-2022 Miscellaneous Notes* Quick Notes - Marlee Almanza APRN.CNM - 10/31/2021 2:31 PM EDT JOLIE: Marzena Pickering is a 31 year old female who presents at 34w5d with NIKKI:12/07/2021, by Ultrasound for a routine visit. Good FM. Denies headache, visual changes, chest pain, shortness of breath, vaginal bleeding, leakage of fluid, or dysuria. Went to [place] for LOF and negative. Still having irregular [...] given Marlee Almanza APRN.CNM documented in this encounterFulton County [facility] Center04-19-2022 Instructions* Patient Instructions* Candelaria Nguyễn Ma - 10/31/2021 2:07 PM EDT [employer] for diastasis Recti exercises during and for [...] the above symptoms, contact our office at [phone] and ask to speak with anurse. After hours, you can call doctors registry at [phone] OR call [facility] at [phone] ask to have the doctor interior design consultant paged. If you consider this an emergency, dial 2--8 or go to your nearest emergency department. NEED HELP? Are you dealing with a violent or abusive relationship? Are you a victim of rape or sexual assult? Call [facility] ([place]) 24 hour Crisis Hotline: 167.222.7271 or 221-652-1335. MANUAL Your Guide to a Healthy manual is now on-line. Visit [email or web address] to download your free copy documented in this encounterFulton County Health Center04-15-2022 Miscellaneous Notes* Telephone Encounter - Yeni Craig RN - 10/27/2021 9:03 AM EDT Letter sent via [employer]. Yeni Craig RN * Telephone Encounter - Erendira Hayes MD - 10/27/2021 8:57 AM EDT That is ok * Telephone Encounter - Yeni Craig RN - 10/26/2021 4:27 PM EDT 34w0d Saw SW yesterday. Asking for a new letter. States her work wants letter that states she can return to work with NO restrictions for today since she is able to do her normal job duties. They are goingto allow her to only work three 8 hour shifts a week. If okay for letter just needs released to [employer]. Yeni Craig RN documented in this encounterFulton County [facility] Center04-13-2022 History of Present illness Narrative* Erendira Hayes MD - 10/25/2021 12:11 PM EDT NST SUMMARY PROVIDER ASSESSMENT AND INTERPRETATION Indications for NST: Decreased Movement Baseline: 140 Variability: Moderate Accelerations: Present 15 X 15 Decelerations: None Interpretation: Reactive SIGNATURE: Erendira Hayes DO documented in this encounterFulton County Health Center04-13-2022 Miscellaneous Notes* Quick Notes - Erendira Hayes MD - 10/25/2021 11:18 AM EDT SW- Add on visit. Follow up from admission at [facility] for threatened PTL. She states she was [...] wk Erendira Hayes DO documented in this encounterFulton County Health Center04-13-2022 Instructions* Patient Instructions* Agueda De Paz MA - 10/25/2021 10:47 AM EDT SEQUENTIAL SCREENINGS The [facility] offers sequential screenings for women who are interested in screenings for chromosomal abnormalities and certain defects during a . The sequential screen combinesultrasound and blood tests to determine the risk [...] this testing. It will require an appointment withour waste minimization technician. This is not an ultrasound performed [...] the above symptoms, contact our office at [phone] and ask to speak with anurse. After hours, you can call doctors registry at [phone] OR call [facility] at [phone] ask to have the doctor interior design consultant paged. If you consider this an emergency, dial 9-1-4 or go to your nearest emergency department. NEED HELP? Are you dealing with a violent or abusive relationship? Are you a victim of rape or sexual assult? Call [facility] ([place]) 24 hour Crisis Hotline: 958.540.5055 or 555-845-7045. MANUAL Your Guide to a Healthy manual is now on-line. Visit [email or web address] to download your free copy documented in this encounterFulton County Health Center04-11-2022 Hospital Discharge instructions Patient Education 10/23/2021 17:03:47 [...] crackers, bananas, Jell-O, cooked carrots, applesauce. _x__ [place] diet. Avoid caffeine, chocolate, alcohol, spiced/greasy foods. [...] the nearest Emergency Room for assistance. Form [id number] D: 06/22 Document Released: 07/01/2006 Document Revised: 06/19/2012 Document Reviewed: 07/01/2006 ExitCare Patient Information 2012 [place]. Follow Up Care 10/20/2021 22:28:18 With:RONALD PEDRAZA MD, SVP [employer] Address: When: Unknown [facility] 04-11-2022 Miscellaneous Notes* Telephone Encounter - Erendira Hayes MD - 10/23/2021 2:22 PM EDT Noted thanks will route to ALIX as well * Telephone Encounter - Anne-Marie Hartley RN - 10/23/2021 1:40 PM EDT Received a call from [facility] requesting OB records. Patient is at L&D now. Records faxed. Next OB visit 10/31 with ALIX. SERENA Hartley RN documented in this encounterFulton County Health Center04-11-2022 Note. MICRO - Microbiology PROCEDURE: Urine Culture [...] Locations *1: This test was performed at: [facility], [address] [place] [address], [id number] , [facility])10-21-2021 Evaluation + Plan note Future Appointments Diagnostic Tests Pending * Rapid Plasma Reagin Test 10/21/21 [facility] 03-25-2022 Miscellaneous Notes* Quick Notes - Erendira Hayes MD - 10/06/2021 4:05 PM EDT SW- Having period like cramping and rectal [...] up. Erendira Hayes DO documented in this encounterFulton County Health Center03-25-2022 Instructions* Patient Instructions* Agueda De Paz MA - 10/06/2021 3:42 PM EDT SEQUENTIAL SCREENINGS The [facility] offers sequential screenings for women who are interested in screenings for chromosomal abnormalities and certain defects during a . The sequential screen combinesultrasound and blood tests to determine the risk [...] this testing. It will require an appointment withour waste minimization technician. This is not an ultrasound performed [...] the above symptoms, contact our office at [phone] and ask to speak with anurse. After hours, you can call doctors registry at [phone] OR call [facility] at [phone] ask to have the doctor interior design consultant paged. If you consider this an emergency, dial 9-1-1 or go to your nearest emergency department. NEED HELP? Are you dealing with a violent or abusive relationship? Are you a victim of rape or sexual assult? Call [facility] ([place]) 24 hour Crisis Hotline: 443.494.5563 or 287-029-8214. MANUAL Your Guide to a Healthy manual is now on-line. Visit [email or web address] to download your free copy documented in this encounterFulton County Health Center03-25-2022 History of Past illness Narrative* Problem Noted [...] and delivery for evaluation. Patient went to [facility] on 11/24/20. 32w6d, contractions became more intense, 2cm dilated, started on Magnesium sulfate drip. Pat was transferred to [facility] in [place] for labor and further evaluation. Magnesium discontinued upon arrival at [facility] and found to only be 1 cm. [...] 04/23/2021 Overview: 06/01/20-reviewed genetic carrier screening with [employer] 14 panel. Patient is interested in handout given to check with insurance. Will let us know at next visit.Marlee Almanza APRN.CNM 05/19/2020Patient states FOB great-grandfather had [place]-Sachs disease. Patient considering genetic carrier screening testing.TKRN documented as of this encounter (statuses as of 12/27/2021) [facility] History of Past illness Narrative* Problem Noted [...] and delivery for evaluation. Patient went to [facility] on 11/24/20. 32w6d, contractions became more intense, 2cm dilated, started on Magnesium sulfate drip. Pat was transferred to [facility] in [place] for labor and further evaluation. Magnesium discontinued upon arrival at [facility] and found to only be 1 cm. [...] of this encounter (statuses as of 01/01/2022) [facility] History of Past illness Narrative* Problem Noted [...] and delivery for evaluation. Patient went to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 examination (general) [...] Generalized anxiety disorder [facility] Diagnosis APPOINTMENT CANCELLED- Primary [facility] Diagnosis GUIDO (generalized anxiety disorder)- Primary Generalized anxiety disorder [facility] Diagnosis GUIDO (generalized anxiety disorder)- Primary Generalized anxiety disorder Moderate episode of recurrent major depressive disorder (HCC) [facility]* Diagnosis Moderate episode of recurrent major depressive disorder (HCC) GUIDO (generalized anxiety disorder) Generalized anxiety disorder [facility]* Diagnosis Neoplasm of unspecified behavior of bone, soft tissue, and skin- Primary Family history of melanoma Family history of other specified malignant neoplasm [facility]* Diagnosis Recurrent major depressive disorder, in partial remission (HCC)- Primary GUIDO (generalized anxiety disorder) Generalized anxiety disorder Grief reaction Adjustment disorder with depressed mood [facility]* Diagnosis Abnormal uterine bleeding (AUB)- Primary [facility]* Diagnosis Missed menses- Primary Absence of menstruation [facility]* Diagnosis APPOINTMENT CANCELLED- Primary [facility]* Diagnosis Recurrent major depressive disorder, in partial remission (HCC)- Primary GUIDO (generalized anxiety disorder) Generalized anxiety disorder Grief reaction Adjustment disorder with depressed mood [facility]* Diagnosis GUIDO (generalized anxiety disorder)- Primary Generalized anxiety disorder Moderate episode of recurrent major depressive disorder (HCC) Apathy Demoralization and apathy Medication side effect, initial encounter Encounter for long-term (current) use of medications Encounter for long-term (current) use of other medications [facility] Diagnosis GUIDO (generalized anxiety disorder)- Primary Generalized anxiety disorder Recurrent major depressive disorder, in partial remission (HCC) Encounter for long-term (current) use of medications Encounter for long-term (current) use of other medications with 8 completed weeks gestation [facility]* Diagnosis Nausea and vomiting, unspecified vomiting type- Primary Dizzy Dizziness and giddiness Viral illness Unspecified viral infection, in conditions classified elsewhere and of unspecified site [facility]* Diagnosis Supervision of high risk , [...] of congenital anomalies [facility]* Diagnosis APPOINTMENT CANCELLED- Primary [facility] Diagnosis Supervision of high risk , antepartum- Primary Herpes simplex virus (HSV) infection Anxiety and depression Dysthymic disorder 11 weeks gestation of state, incidental [facility]* Diagnosis Encounter for anatomic survey- Primary History of labor Personal history of pre-term labor 11 weeks gestation of state, incidental [facility]* Diagnosis NO SHOW- Primary [facility]* Diagnosis Supervision of high risk , antepartum (HCC)- Primary 15 weeks gestation of (HCC) state, incidental HSV-2 seropositive Other and unspecified nonspecific immunological findings History of depression History of anxiety Personal history of other mental disorder Anxiety and depression Dysthymic disorder [facility]* Diagnosis GUIDO (generalized anxiety disorder)- Primary Generalized anxiety disorder Encounter for long-term (current) use of medications Encounter for long-term (current) use of other medications Recurrent major depressive disorder, in partial remission Psychosocial stressors Other psychological or physical stress, not elsewhere classified [facility]* Diagnosis Screening for diabetes mellitus- Primary 23 weeks gestation of (HCC) state, incidental Supervision of high risk in second trimester (HCC) Unspecified high-risk Heartburn [facility]* Diagnosis contractions (HCC)- Primary Threatened premature labor, antepartum Supervision of high risk in second trimester (HCC)- Primary Unspecified high-risk 27 weeks gestation of (HCC) state, incidental Bleeding of eye, left [facility]* Diagnosis contractions (HCC)- Primary Threatened premature labor, antepartum Conjunctival hemorrhage of left eye- Primary Conjunctival hemorrhage [facility]* Diagnosis contractions (HCC)- Primary Threatened premature labor, antepartum Supervision of high risk in third trimester (HCC)- Primary Unspecified high-risk 30 weeks gestation of (HCC) state, incidental HSV-2 seropositive Other and unspecified nonspecific immunological findings History of depression Anxiety and depression Dysthymic disorder Bleeding of eye, left Antepartum anemia complicating in third trimester ([facility]) [facility]* Diagnosis Uterine contractions (HCC)- Primary 32 weeks gestation of (HCC) state, incidental 31 weeks gestation of ([facility]) state, incidental contractions (HCC) Threatened premature labor, antepartum 31 weeks gestation of ([facility]) state, incidental Supervision of high risk in third trimester ([facility])- Primary Unspecified high-risk 31 weeks gestation of ([facility]) state, incidental HSV-2 seropositive Other and unspecified nonspecific immunological findings Anxiety and depression Dysthymic disorder Antepartum anemia complicating in third trimester (HCC) Heartburn during in third trimester ([facility]) [facility]* Diagnosis Uterine contractions (HCC)- Primary 32 weeks gestation of (HCC) state, incidental 31 weeks gestation of (HCC) state, incidental contractions (HCC) Threatened premature labor, antepartum Supervision of other high risk pregnancies, third trimester (HCC)- Primary Uterine size-date discrepancy, third trimester (HCC) 33 weeks gestation of ([facility]) state, incidental Herpes simplex virus (HSV) infection Antepartum anemia complicating in third trimester (HCC) Heartburn during in third trimester ([facility]) Anxiety and depression Dysthymic disorder [facility]* Diagnosis Uterine contractions (HCC)- Primary 32 weeks gestation of (HCC) state, incidental 31 weeks gestation of (HCC) state, incidental contractions (HCC) Threatened premature labor, antepartum Uterine size-date discrepancy, third trimester (HCC) [facility]* Diagnosis Onset Date Resolution Status Admit Date 34 weeks gestation of acute March 17, 8:25pm contractions acute Mar 8:25pm [facility] Work Phone: History and physical note Author [facility] Note Date/Time March 17, 2025 8:42pm [facility] Medical Records Department [address] [place] [address] OB Triage Physician Note 03/17/252035 MR#: [id number] Acct: [id number] Name: MARZENA PICKERING Rep #:[id number] : 1990 34 From: Miriam Gr MD PCP: Care Physician,No Primary Status :REG CLI Y Location: [address] HPI - General General Date of Service: 03/17/25 HPI Narrative MARZENA PICKERING, is a 34 F @ 34.6 weeks who presents c/o contractions. reports has been not feeling great- no fevers - but is not drinking much water. denies VB, LOF. [facility] Medical History (Updated 03/17/25 @ 20:[address] Miriam Ramesy MD) Genital herpes affecting Home Medications ?Medication ?Instructions ?Recorded ?Last Taken ?Type 1 tab PO/SL DAILY Check with 12/27/20 10/07/21 07:00 History primary doctor sertraline 100 mg tablet (Zoloft) 100 mg PO DAILY Che k with [facility] 12/27/20 10/07/21 07:00 History doctor acyclovir 400 mg tablet 400 mg PO TID Check with [facility] 11/07/21 11/07/21 History doctor ferrous sulfate 325 [...] MD; No Primary Care Physician ~ Signed [facility] Work Phone: Hospital course Narrative No data available for this section [facility] Progress note No data available for this section [facility] Reason for referral (narrative)* Diagnostic Procedure Only (Routine) - Authorized Specialty Diagnoses / Procedures Referred By Lucrecia olmstead Referred To Contact [facility] Diagnoses 36 weeks gestation of Uterine size-date discrepancy, third trimester Procedures OBSTETRIC ULTRASOUND WHI US PREG UTERUS AFTER 1ST TRIMEST GESTATION Marlee Almanza APRN.CNM [address] [place] [address] [facility] [address] [place] [address] Referral ID Status Reason Start Date Expiration Date Visits Requested Visits Authorized [id number] Authorized Auto-Generat ed Referral 11/16/2021 07/14/2022 1 1 [facility] for referral (narrative)* Diagnostic Procedure Only (Routine) - Authorized Specialty Diagnoses / Procedures Referred By Lucrecia olmstead Referred To Contact [facility] IMAGING Diagnoses Abnormal uterine bleeding (AUB) Procedures US FEMALE PELVIS TRANSVAG US TRANSVAGINAL Marlee Almanza APRN.CNM [address] [place] [address] [place] [id number] Referral ID Status Reason Start Date Expiration Date Visits Requested Visits Authorized [id number] Authorized Auto-Generat ed Referral 11/06/2023 12/05/2024 1 1 [facility] for referral (narrative)No reason for referral [facility] Work Phone[facility] Summary Purpose Family History No Family History Records Found Relationship Condition Age at Onset Recorded Date/T sergio sister Family history of defect Unknown Advance Directives No Advanced Directives Records Found Advance Directive Response Recorded Date/ Time Living Will No December 27, 2020 5:00pm Power of Phlebotomy Support Tech No December 27 5:00pm Advance Directive Response Recorded Date/ Time Living Will No November 16, 2021 10 :59pm Power of Phlebotomy Support Tech No November 16, 2021 10:59pm Advance Directive Response Recorded Date/ Time Do you have a Healthcare Power of Phlebotomy Support Tech? No March 29, 2025 3:03am Chief Complaint and Reason for Visit Chief [...] Visit Admit Date 34 weeks gestation of Renettae r 2024 8:25pm contractions March 17, 2025 8:25pm Chief Complaint Admit Date R/O March 17, 2025 8:25pm BLEEDING March 29, 2025 12:08am Reason for Visit Admit Date 34 weeks gestation of Renettae r 2024 8:25pm contractions March 17, 2025 8:25pm 36 weeks gestation of Renettae r 2024 12:08am Anxiety March 29, 2025 12:08am Depression March 29, 2025 12:08am Genital HSV March 29, 2025 12:08am History of OCD (obsessive compulsive dis order) March 29, 2025 12:08am HSV-2 seropositive March 29, 2025 12:08am Iron deficiency anemia March 29, 2 025 12:08am contractions March 29 12:08am Spotting complicating in third trimester March 29, 2025 12:08am Health Concerns Infection Onset Date Last Indicated Resolved Time COVID-19 Confirmed 10/04/2022 10/04/2022 Reason for Referral Specialty Diagnoses / Procedures Referred By Lucrecia olmstead Referred To Contact Diagnoses Family history of ovarian cancer Procedures CONSULT TO MEDICAL GENETICS - GENERAL OFFICE/OUTPATIENT [facility] 60-74 MINUTES MEDICAL GENETICS COUNSELING EACH 30 MINUTES Marlee Almanza APRN.[facility] [address] [place] [address] [facility] [place] [address] Referral ID Status Reason Start Date Expiration Date Visits Requested Visits Authorized [id number] Authorized PCP Requested Referral Auto-Generate d Referral 01/02/2023 01/02/2024 1 1 Additional Source Comments INFORMATION SOURCE (unrecogn ized section and content) DATE CREATED AUTHOR 08/26/2021 [facility] DATE CREATED AUTHOR AUTHOR'S ORGANIZ ATION 10/01/2021 [facility] DATE CREATED AUTHOR AUTHOR'S ORGANIZ ATION 01/31/2022 [facility] DATE CREATED AUTHOR AUTHOR'S ORGANIZ ATION 05/20/2022 [facility] (ID) DATE CREATED AUTHOR AUTHOR'S ORGANIZ ATION 12/25/2022 [facility] DATE CREATED AUTHOR AUTHOR'S ORGANIZ ATION 10/06/2024 [facility] DATE CREATED AUTHOR AUTHOR'S ORGANIZ ATION 01/21/2025 [facility] DATE CREATED AUTHOR AUTHOR'S ORGANIZ ATION 03/17/2025 [facility] DATE CREATED AUTHOR AUTHOR'S ORGANIZ ATION 04/02/2025 [facility] DATE CREATED AUTHOR AUTHOR'S ORGANIZ ATION 04/02/2025 [facility] Comments (unrecognize d section and content) In the event this informatio n is protected by the Federal Confidentiality of Alcohol and Drug Abuse Patient Records regulations: The Federal rules restrict any use of the information to criminally investigate or prosecute any alcohol or drug abuse patient.[facility] the event this information is protected by the Federal Confidentiality of Alcohol and Drug Abuse Patient Records regulations: The Federal rules restrict any use of the information to criminally investigate or prosecute any alcohol or drug abuse patient.[facility] CenterIn the event this information is protected by the Federal Confidentiality of Alcohol and Drug Abuse Patient Records regulations: The Federal rules restrict any use of the information to criminally investigate or prosecute any alcohol or drug abuse patient.[facility] CenterIn the event this information is protected by the Federal Confidentiality of Alcohol and Drug Abuse Patient Records regulations: The Federal rules restrict any use of the information to criminally investigate or prosecute any alcohol or drug abuse patient.[facility] CenterIn the event this information is protected by the Federal Confidentiality of Alcohol and Drug Abuse Patient Records regulations: The Federal rules restrict any use of the information to criminally investigate or prosecute any alcohol or drug abuse patient.[facility] CenterIn the event this information is protected by the Federal Confidentiality of Alcohol and Drug Abuse Patient Records regulations: The Federal rules restrict any use of the information to criminally investigate or prosecute any alcohol or drug abuse patient.[facility] CenterIn the event this information is protected by the Federal Confidentiality of Alcohol and Drug Abuse Patient Records regulations: The Federal rules restrict any use of the information to criminally investigate or prosecute any alcohol or drug abuse patient.[facility] CenterIn the event this information is protected by the Federal Confidentiality of Alcohol and Drug Abuse Patient Records regulations: The Federal rules restrict any use of the information to criminally investigate or prosecute any alcohol or drug abuse patient.[facility] CenterIn the event this information is protected by the Federal Confidentiality of Alcohol and Drug Abuse Patient Records regulations: The Federal rules restrict any use of the information to criminally investigate or prosecute any alcohol or drug abuse patient.[facility] CenterIn the event this information is protected by the Federal Confidentiality of Alcohol and Drug Abuse Patient Records regulations: The Federal rules restrict any use of the information to criminally investigate or prosecute any alcohol or drug abuse patient.[facility] CenterIn the event this information is protected by the Federal Confidentiality of Alcohol and Drug Abuse Patient Records regulations: The Federal rules restrict any use of the information to criminally investigate or prosecute any alcohol or drug abuse patient.[facility] CenterIn the event this information is protected by the Federal Confidentiality of Alcohol and Drug Abuse Patient Records regulations: The Federal rules restrict any use of the information to criminally investigate or prosecute any alcohol or drug abuse patient.[facility] CenterIn the event this information is protected by the Federal Confidentiality of Alcohol and Drug Abuse Patient Records regulations: The Federal rules restrict any use of the information to criminally investigate or prosecute any alcohol or drug abuse patient.[facility] CenterIn the event this information is protected by the Federal Confidentiality of Alcohol and Drug Abuse Patient Records regulations: The Federal rules restrict any use of the information to criminally investigate or prosecute any alcohol or drug abuse patient.[facility] CenterIn the event this information is protected by the Federal Confidentiality of Alcohol and Drug Abuse Patient Records regulations: The Federal rules restrict any use of the information to criminally investigate or prosecute any alcohol or drug abuse patient.[facility] CenterIn the event this information is protected by the Federal Confidentiality of Alcohol and Drug Abuse Patient Records regulations: The Federal rules restrict any use of the information to criminally investigate or prosecute any alcohol or drug abuse patient.[facility] CenterIn the event this information is protected by the Federal Confidentiality of Alcohol and Drug Abuse Patient Records regulations: The Federal rules restrict any use of the information to criminally investigate or prosecute any alcohol or drug abuse patient.[facility] CenterIn the event this information is protected by the Federal Confidentiality of Alcohol and Drug Abuse Patient Records regulations: The Federal rules restrict any use of the information to criminally investigate or prosecute any alcohol or drug abuse patient.[facility] CenterIn the event this information is protected by the Federal Confidentiality of Alcohol and Drug Abuse Patient Records regulations: The Federal rules restrict any use of the information to criminally investigate or prosecute any alcohol or drug abuse patient.[facility] CenterIn the event this information is protected by the Federal Confidentiality of Alcohol and Drug Abuse Patient Records regulations: The Federal rules restrict any use of the information to criminally investigate or prosecute any alcohol or drug abuse patient.[facility] CenterIn the event this information is protected by the Federal Confidentiality of Alcohol and Drug Abuse Patient Records regulations: The Federal rules restrict any use of the information to criminally investigate or prosecute any alcohol or drug abuse patient.[facility] CenterIn the event this information is protected by the Federal Confidentiality of Alcohol and Drug Abuse Patient Records regulations: The Federal rules restrict any use of the information to criminally investigate or prosecute any alcohol or drug abuse patient.[facility] CenterIn the event this information is protected by the Federal Confidentiality of Alcohol and Drug Abuse Patient Records regulations: The Federal rules restrict any use of the information to criminally investigate or prosecute any alcohol or drug abuse patient.[facility] CenterIn the event this information is protected by the Federal Confidentiality of Alcohol and Drug Abuse Patient Records regulations: The Federal rules restrict any use of the information to criminally investigate or prosecute any alcohol or drug abuse patient.[facility] CenterIn the event this information is protected by the Federal Confidentiality of Alcohol and Drug Abuse Patient Records regulations: The Federal rules restrict any use of the information to criminally investigate or prosecute any alcohol or drug abuse patient.[facility] CenterIn the event this information is protected by the Federal Confidentiality of Alcohol and Drug Abuse Patient Records regulations: The Federal rules restrict any use of the information to criminally investigate or prosecute any alcohol or drug abuse patient.[facility] CenterIn the event this information is protected by the Federal Confidentiality of Alcohol and Drug Abuse Patient Records regulations: The Federal rules restrict any use of the information to criminally investigate or prosecute any alcohol or drug abuse patient.[facility] CenterIn the event this information is protected by the Federal Confidentiality of Alcohol and Drug Abuse Patient Records regulations: The Federal rules restrict any use of the information to criminally investigate or prosecute any alcohol or drug abuse patient.[facility] CenterIn the event this information is protected by the Federal Confidentiality of Alcohol and Drug Abuse Patient Records regulations: The Federal rules restrict any use of the information to criminally investigate or prosecute any alcohol or drug abuse patient.[facility] CenterIn the event this information is protected by the Federal Confidentiality of Alcohol and Drug Abuse Patient Records regulations: The Federal rules restrict any use of the information to criminally investigate or prosecute any alcohol or drug abuse patient.[facility] CenterIn the event this information is protected by the Federal Confidentiality of Alcohol and Drug Abuse Patient Records regulations: The Federal rules restrict any use of the information to criminally investigate or prosecute any alcohol or drug abuse patient.[facility] CenterIn the event this information is protected by the Federal Confidentiality of Alcohol and Drug Abuse Patient Records regulations: The Federal rules restrict any use of the information to criminally investigate or prosecute any alcohol or drug abuse patient.[facility] CenterIn the event this information is protected by the Federal Confidentiality of Alcohol and Drug Abuse Patient Records regulations: The Federal rules restrict any use of the information to criminally investigate or prosecute any alcohol or drug abuse patient.[facility] CenterIn the event this information is protected by the Federal Confidentiality of Alcohol and Drug Abuse Patient Records regulations: The Federal rules restrict any use of the information to criminally investigate or prosecute any alcohol or drug abuse patient.[facility] CenterIn the event this information is protected by the Federal Confidentiality of Alcohol and Drug Abuse Patient Records regulations: The Federal rules restrict any use of the information to criminally investigate or prosecute any alcohol or drug abuse patient.[facility] CenterIn the event this information is protected by the Federal Confidentiality of Alcohol and Drug Abuse Patient Records regulations: The Federal rules restrict any use of the information to criminally investigate or prosecute any alcohol or drug abuse patient.[facility] CenterIn the event this information is protected by the Federal Confidentiality of Alcohol and Drug Abuse Patient Records regulations: The Federal rules restrict any use of the information to criminally investigate or prosecute any alcohol or drug abuse patient.[facility] CenterIn the event this information is protected by the Federal Confidentiality of Alcohol and Drug Abuse Patient Records regulations: The Federal rules restrict any use of the information to criminally investigate or prosecute any alcohol or drug abuse patient.[facility] CenterIn the event this information is protected by the Federal Confidentiality of Alcohol and Drug Abuse Patient Records regulations: The Federal rules restrict any use of the information to criminally investigate or prosecute any alcohol or drug abuse patient.[facility] CenterIn the event this information is protected by the Federal Confidentiality of Alcohol and Drug Abuse Patient Records regulations: The Federal rules restrict any use of the information to criminally investigate or prosecute any alcohol or drug abuse patient.[facility] CenterIn the event this information is protected by the Federal Confidentiality of Alcohol and Drug Abuse Patient Records regulations: The Federal rules restrict any use of the information to criminally investigate or prosecute any alcohol or drug abuse patient.[facility] CenterIn the event this information is protected by the Federal Confidentiality of Alcohol and Drug Abuse Patient Records regulations: The Federal rules restrict any use of the information to criminally investigate or prosecute any alcohol or drug abuse patient.[facility] CenterIn the event this information is protected by the Federal Confidentiality of Alcohol and Drug Abuse Patient Records regulations: The Federal rules restrict any use of the information to criminally investigate or prosecute any alcohol or drug abuse patient.[facility] CenterIn the event this information is protected by the Federal Confidentiality of Alcohol and Drug Abuse Patient Records regulations: The Federal rules restrict any use of the information to criminally investigate or prosecute any alcohol or drug abuse patient.[facility] CenterIn the event this information is protected by the Federal Confidentiality of Alcohol and Drug Abuse Patient Records regulations: The Federal rules restrict any use of the information to criminally investigate or prosecute any alcohol or drug abuse patient.[facility] CenterIn the event this information is protected by the Federal Confidentiality of Alcohol and Drug Abuse Patient Records regulations: The Federal rules restrict any use of the information to criminally investigate or prosecute any alcohol or drug abuse patient.[facility] CenterIn the event this information is protected by the Federal Confidentiality of Alcohol and Drug Abuse Patient Records regulations: The Federal rules restrict any use of the information to criminally investigate or prosecute any alcohol or drug abuse patient.[facility] CenterIn the event this information is protected by the Federal Confidentiality of Alcohol and Drug Abuse Patient Records regulations: The Federal rules restrict any use of the information to criminally investigate or prosecute any alcohol or drug abuse patient.[facility] CenterIn the event this information is protected by the Federal Confidentiality of Alcohol and Drug Abuse Patient Records regulations: The Federal rules restrict any use of the information to criminally investigate or prosecute any alcohol or drug abuse patient.[facility] CenterIn the event this information is protected by the Federal Confidentiality of Alcohol and Drug Abuse Patient Records regulations: The Federal rules restrict any use of the information to criminally investigate or prosecute any alcohol or drug abuse patient.[facility] CenterIn the event this information is protected by the Federal Confidentiality of Alcohol and Drug Abuse Patient Records regulations: The Federal rules restrict any use of the information to criminally investigate or prosecute any alcohol or drug abuse patient.[facility] CenterIn the event this information is protected by the Federal Confidentiality of Alcohol and Drug Abuse Patient Records regulations: The Federal rules restrict any use of the information to criminally investigate or prosecute any alcohol or drug abuse patient.[facility] CenterIn the event this information is protected by the Federal Confidentiality of Alcohol and Drug Abuse Patient Records regulations: The Federal rules restrict any use of the information to criminally investigate or prosecute any alcohol or drug abuse patient.[facility] CenterIn the event this information is protected by the Federal Confidentiality of Alcohol and Drug Abuse Patient Records regulations: The Federal rules restrict any use of the information to criminally investigate or prosecute any alcohol or drug abuse patient.[facility] CenterIn the event this information is protected by the Federal Confidentiality of Alcohol and Drug Abuse Patient Records regulations: The Federal rules restrict any use of the information to criminally investigate or prosecute any alcohol or drug abuse patient.[facility] CenterIn the event this information is protected by the Federal Confidentiality of Alcohol and Drug Abuse Patient Records regulations: The Federal rules restrict any use of the information to criminally investigate or prosecute any alcohol or drug abuse patient.[facility] CenterIn the event this information is protected by the Federal Confidentiality of Alcohol and Drug Abuse Patient Records regulations: The Federal rules restrict any use of the information to criminally investigate or prosecute any alcohol or drug abuse patient.[facility] CenterIn the event this information is protected by the Federal Confidentiality of Alcohol and Drug Abuse Patient Records regulations: The Federal rules restrict any use of the information to criminally investigate or prosecute any alcohol or drug abuse patient.[facility] CenterIn the event this information is protected by the Federal Confidentiality of Alcohol and Drug Abuse Patient Records regulations: The Federal rules restrict any use of the information to criminally investigate or prosecute any alcohol or drug abuse patient.[facility] CenterIn the event this information is protected by the Federal Confidentiality of Alcohol and Drug Abuse Patient Records regulations: The Federal rules restrict any use of the information to criminally investigate or prosecute any alcohol or drug abuse patient.[facility] CenterIn the event this information is protected by the Federal Confidentiality of Alcohol and Drug Abuse Patient Records regulations: The Federal rules restrict any use of the information to criminally investigate or prosecute any alcohol or drug abuse patient.[facility] CenterIn the event this information is protected by the Federal Confidentiality of Alcohol and Drug Abuse Patient Records regulations: The Federal rules restrict any use of the information to criminally investigate or prosecute any alcohol or drug abuse patient.[facility] CenterIn the event this information is protected by the Federal Confidentiality of Alcohol and Drug Abuse Patient Records regulations: The Federal rules restrict any use of the information to criminally investigate or prosecute any alcohol or drug abuse patient.[facility] CenterIn the event this information is protected by the Federal Confidentiality of Alcohol and Drug Abuse Patient Records regulations: The Federal rules restrict any use of the information to criminally investigate or prosecute any alcohol or drug abuse patient.[facility] CenterIn the event this information is protected by the Federal Confidentiality of Alcohol and Drug Abuse Patient Records regulations: The Federal rules restrict any use of the information to criminally investigate or prosecute any alcohol or drug abuse patient.[facility] CenterIn the event this information is protected by the Federal Confidentiality of Alcohol and Drug Abuse Patient Records regulations: The Federal rules restrict any use of the information to criminally investigate or prosecute any alcohol or drug abuse patient.[facility] Center[facility] the event this information is protected by the Federal Confidentiality of Alcohol and Drug Abuse Patient Records regulations: The Federal rules restrict any use of the information to criminally investigate or prosecute any alcohol or drug abuse patient.[facility] Center[facility] the event this information is protected by the Federal Confidentiality of Alcohol and Drug Abuse Patient Records regulations: The Federal rules restrict any use of the information to criminally investigate or prosecute any alcohol or drug abuse patient.[facility] Center[facility] the event this information is protected by the Federal Confidentiality of Alcohol and Drug Abuse Patient Records regulations: The Federal rules restrict any use of the information to criminally investigate or prosecute any alcohol or drug abuse patient.[facility] Center[facility] the event this information is protected by the Federal Confidentiality of Alcohol and Drug Abuse Patient Records regulations: The Federal rules restrict any use of the information to criminally investigate or prosecute any alcohol or drug abuse patient.[facility] Center[facility] the event this information is protected by the Federal Confidentiality of Alcohol and Drug Abuse Patient Records regulations: The Federal rules restrict any use of the information to criminally investigate or prosecute any alcohol or drug abuse patient.[facility] Center[facility] the event this information is protected by the Federal Confidentiality of Alcohol and Drug Abuse Patient Records regulations: The Federal rules restrict any use of the information to criminally investigate or prosecute any alcohol or drug abuse patient.[facility] Center[facility] the event this information is protected by the Federal Confidentiality of Alcohol and Drug Abuse Patient Records regulations: The Federal rules restrict any use of the information to criminally investigate or prosecute any alcohol or drug abuse patient.[facility] CenterIn the event this information is protected by the Federal Confidentiality of Alcohol and Drug Abuse Patient Records regulations: The Federal rules restrict any use of the information to criminally investigate or prosecute any alcohol or drug abuse patient.[facility] Reason for Visit (unrecogniz ed section and content) Reason Comments No Show Specialty Diagnoses / Procedures Referred By Contac t Referred To Contact Psychiatry / ADULT PSYCHIATRY Diagnoses follow up Procedures VIDEO PSYC/PSYL EST [facility] [address] [place] [address] Phone: tel: Samaria Haji, PRODUCT REPRESENTATIVE.AGRICULTURAL ECONOMICS PROFESSOR [address] [place] [address] Phone: tel: fax: Referral ID Status Reason Start Date Expiration Date Visits Requested Visits Authorized [id number] Authorized Benefit Check 07/15/2024 07/14/2025 99 99 Reason Comments Appointment Cancelled Reason Onset Date Comments Care 10/06/2021 Specialty Diagnoses / Procedures Referred By Lucrecia olmstead Referred To Contact PLANT BIOLOGY PROFESSOR Diagnoses 31 weeks gestation of OB-Cramping, Increased pressure Procedures OFFICE/OUTPATIENT ESTABLISHED MOD MDM 30-39 MIN EST I OB Self Erendira Hayes MD [address] [place] [address] Referral ID Status Reason Start Date Expiration Date Visits Re quested Visits Authorized [id number] Closed 10/06/2021 07/14/2022 1 1 Reason Comments US Specialty Diagnoses / Procedures Referred By Lucrecia olmstead Referred To Contact [facility] Diagnoses 30 weeks gestation of Short interval between pregnancies affecting , antepartum Procedures OBSTETRIC ULTRASOUND [facility] US PREG UTERUS AFTER 1ST TRIMEST GESTATION Erendira Hayes MD [address] [place] [address] [facility] [address] [place] [address] Referral ID Status Reason Start Date Expiration Date V isits Requested Visits Authorized [id number] Closed Auto-Generate d Referral 10/18/2021 07/14/2022 1 1 Reason Comments Patient Update Reason Onset Date Comments Care 10/25/2021 Specialty Diagnoses / Procedures Referred By Lucrecia olmstead Referred To Contact PLANT BIOLOGY PROFESSOR Diagnoses ob-f/u from Jamal Procedures EST [facility] OB Erendira Hayes MD [address] [place] [address] Erendira Hayes MD [address] [place] [address] Referral ID Status Reason Start Date Expiration Date Visits Re quested Visits Authorized [id number] Closed 10/25/2021 01/23/2022 1 1 Reason Comments Letter Reason Onset Date Comments Care 10/31/2021 Specialty Diagnoses / Procedures Referred By Contac t Referred To Contact PLANT BIOLOGY PROFESSOR Diagnoses OB Procedures OFFICE/OUTPATIENT ESTABLISHED MOD [facility] 30-39 MIN EST [facility] OB Self Marlee Almanza APRN.CN [address] [place] [address] Referral ID Status Reason Start Date Expiration Date Visits Re quested Visits Authorized [id number] Closed 10/31/2021 07/14/2022 1 1 Reason Onset Date Comments Care 11/14/2021 Specialty Diagnoses / Procedures Referred By Contac t Referred To Contact PLANT BIOLOGY PROFESSOR Diagnoses OB Procedures OFFICE/OUTPATIENT ESTABLISHED MOD [facility] 30-39 MIN EST [facility] OB Marlee Taylor APRN.CNM [address] [place] [address] Reason Comments Ob Delivery Note Reason Comments Routine Specialty Diagnoses / Procedures Referred By Contac t Referred To Contact PLANT BIOLOGY PROFESSOR Diagnoses False labor before 37 completed weeks of gestation, unspecified trimester post Procedures OFFICE/OUTPATIENT ESTABLISHED MOD [facility] 30-39 MIN POST Marlee Taylor APRN.CNM [address] [place] [address] Referral ID Status Reason Start Date Expiration Date Visits Re quested Visits Authorized [id number] Closed 12/26/2021 07/14/2022 1 1 Reason Comments [...] ADULT PSYCHIATRY Diagnoses medication management Procedures VIDEO PSYC/PSMarlee Vega APRN.[facility] [address] [place] [address] Samaria Haji, PRODUCT REPRESENTATIVE.AGRICULTURAL ECONOMICS PROFESSOR [address] [place] [address] Referral ID Status Reason Start Date Expiration Date Visits Requested Visits Authorized [id number] Authorized Benefit Check 07/15/2022 07/14/2023 99 99 Reason Comments Sore Throat Sore throat, symptom s started 3 days ago. Exposed to Strep throat. Has taken Sudafed, last dose 0, Tylenol yesterday morning. Reason Comments Medication Problem Reason Comments Yearly Exam Reason Comments Appointment Rescheduled Reason Comments Established Patient Follow-Up Reason Comments Wellness Specialty Diagnoses / Procedures Referred By Contac t Referred To Contact Diagnoses Moderate episode of recurrent major depressive disorder (HCC) GUIDO (generalized anxiety disorder) Procedures CONSULT TO HOLISTIC PSYCHOTHERAPY OFFICE/OUTPATIENT [facility] 60 MINUTES Samaria Haji, PRODUCT REPRESENTATIVE.AGRICULTURAL ECONOMICS PROFESSOR [address] [place] [address] Referral ID Status Reason Start Date Expiration Date V isits Requested Visits Authorized [id number] Closed PCP Requested Referral 07/17/2023 07/16/2024 1 1 Reason Comments LESION, SKIN Reason Comments Irregular Menstrual Cycle Reason Comments Follow Up Depression/anxiety Reason Comments Vaginal Problem Specialty Diagnoses / Procedures Referred By Contac t Referred To Contact Psychiatry / ADULT PSYCHIATRY Diagnoses follow up 3 month Procedures VIDEO PSYC/PSYL EST Samaria Haji, PRODUCT REPRESENTATIVE.AGRICULTURAL ECONOMICS PROFESSOR [address] [place] [address] Samaria Haji, PRODUCT REPRESENTATIVE.AGRICULTURAL ECONOMICS PROFESSOR [address] [place] [address] Referral ID Status Reason Start Date Expiration Date Visits Requested Visits Authorized [id number] Authorized Benefit Check 03/13/2024 07/14/2024 99 99 Reason Comments Medication Question Reason Comments Question (OB Question) Reason Comments Vomiting Sx started x 2 weeks with vomiting, diarrhea,cough, chest tightness. Pt is 7 weeks . Tylenol last dose 1400 tody Reason Comments Initial OB Visit Specialty Diagnoses / Procedures Referred By Lucrecia olmstead Referred To Contact [facility] Diagnoses 7 weeks gestation of Procedures OBSTETRIC ULTRASOUND [facility] US PREG UTERUS AFTER 1ST TRIMEST GESTATION Marlee Almanza APRN.[facility] [address] [address] Phone: tel: fax: [facility] [place] [address] [place] [address] Referral ID Status Reason Start Date Expiration Date V isits Requested Visits Authorized [id number] Closed Auto-Generate d Referral 09/08/2024 09/08/2025 1 1 Reason Onset Date Comments Care 11/03/2024 Reason Comments Follow Up Specialty Diagnoses / Procedures Referred By Lucrecia olmstead Referred To Contact Psychiatry / ADULT PSYCHIATRY Diagnoses follow up Procedures VIDEO PSYC/PSYL EST [facility] [address] [place] [address] Phone: tel: Samaria Haji, CRUZITO.AGRICULTURAL ECONOMICS PROFESSOR [address] [place] [address] Phone: tel: fax: Referral ID Status Reason Start Date Expiration Date Visits Requested Visits Authorized [id number] Authorized Benefit Check 07/15/2024 07/14/2025 99 99 Reason Onset Date Comments Care 12/30/2024 Reason Onset Date Comments Care 01/25/2025 Reason Comments redness left eye Reason Onset Date Comments Care 02/11/2025 Reason Onset Date Comments Care 02/22/2025 Reason Onset Date Comments Care 03/05/2025 Specialty Diagnoses / Procedures Referred By Lucrecia olmstead Referred To Contact [facility] Diagnoses Uterine size-date discrepancy, third trimester (HCC) Procedures OBSTETRIC ULTRASOUND [facility] US PREG UTERUS AFTER 1ST TRIMEST GESTATION Marlee Almanza APRN.CNM [address] [address] Phone: tel: fax: [facility] [place] [address] Referral ID Status Reason Start Date Expiration Date V isits Requested Visits Authorized [id number] Closed Auto-Generate d Referral 03/05/2025 03/05/2026 1 1 Reason Onset Date Comments [facility] Outreach 03/20/2025 Reason Onset Date Comments [facility] 03/23/2025 Reason Comments Results Urine Culture Goals (unrecognized section and content) Goals may [...] Active Start: March End: March 17, 2025 Chemist Intern Relationship Specialty Start Date End Date Willa Rogers DO PCP - General Internal Medicine 10/04/22 Chemist Intern Relationship Specialty Start Date End Date Willa Domingo DO PCP - General Internal Medicine 10/04/22 Chemist Intern Relationship Specialty Start Date End Date Willa Domingo DO [facility] [address] [place] [address] PCP - General Internal Medicine 10/04/22 Chemist Intern Relationship Specialty Start Date End Date Willa Domingo DO [address] [place] [address] PCP - General Internal Medicine 10/04/22 [...] BE BASED ON THE PRIMARY CLINICAL RECORDS. [employer] [facility]. provides no warranty or guarantee of the accuracy or completeness of information in this document.
[2025-04-02 22:37] VITALS: BMI 30.7
[2025-04-03] VITALS (44 sets, daily range): BP systolic 110–147; BP diastolic 65–87; PULSE 60–105; RESP 16; TEMP 36.4–36.8; O2SAT 77–100
--- NOTE | 2025-04-03 01:54 | PCM.HP.OB ---
HPI - General General Date of Admission: 04/03/25 Date of Service: 04/03/25 Chief Complaint: labor HPI Narrative VALE VARGAS, is a 34 F who presents with frequent painful contractions. Some bloody show. Bulging back. Unsure about epidural. GBS negative. Cervical change from 3.5 to 5-6 cm Maternal Data Information Final NIKKI: 04/22/25 [facility]ational age: 37+2 [facility] Medical History Genital herpes affecting Home Medications ?Medication ?Instructions ?Recorded ?Last Taken ?Type 1 tab PO/SL DAILY Check with 12/27/20 04/01/25 History primary doctor sertraline 100 mg tablet (Zoloft) 100 mg PO DAILY Check with primary 12/27/20 04/01/25 History doctor acyclovir 400 mg tablet 400 mg PO TID Check with primary 11/07/21 04/01/25 History doctor ferrous sulfate 325 mg (65 mg 325 mg PO QDAY 03/17/25 04/01/25 History iron) tablet (Feosol) omeprazole 20 mg capsule,delayed 20 mg PO DAILY 03/17/25 04/01/25 History release Allergy/AdvReac Type Severity Reaction Status Date / Time tree nut Allergy Hives Verified 04/02/25 22:39 Family History Sister Family history of defect Surgical History History of surgery Social History adopted: Yes Smoking Status: Never smoker History 3 Elective abortions Hx Para 2 Spontaneous abortions Hx # Term Pregnancies Ectopic pregnancies Hx # Pregnancies Multiple births # of living children NST FHR Rate Baby A Baseline: 145 Variability:: Moderate Accelerations:: 15 x 15 Decelerations:: None NST Reactive:: Yes Uterine Activity:: q3 ROS Constitutional Constitutional: Denies fatigue, fever(s) or malaise Eyes Eyes: Denies change in vision ENT HEENT: Denies dizziness or headache(s) Cardiovascular Cardiovascular: Denies chest pain, dyspnea or lightheadedness Respiratory/Chest Respiratory/Chest: Denies cough or dyspnea Gastrointestinal Gastrointestinal: Denies change in bowel habits Genitourinary Genitourinary: Denies burning urination or genital lesions Integumentary Integumentary: Denies rash Neurologic Neurologic: Denies confusion, dizziness, headache(s), numbness or weakness Vital Signs Vital Signs Vital Signs: 04/02/25 22:28 04/02/25 22:28 04/02/25 22:28 Temperature Temperature Source Pulse Rate 70 Respiratory Rate Blood Pressure 129/72 H BP Systolic 129 BP Diastolic 72 Pulse Ox 100 04/02/25 22:28 04/02/25 22:28 04/02/25 22:28 Temperature 97.8 F Temperature Source Temporal Pulse Rate Respiratory Rate 16 Blood Pressure BP Systolic BP Diastolic Pulse Ox Weight Weight: 81.102 kg Body Mass Index (BMI) 30.7 Physical Exam Const alert and no apparent distress General Appearance: cooperative HEENT normocephalic Resp normal respiratory effort Cardio regular rate GI soft to palpation GI Narrative: gravid, nontender, appropriate for gestational age Extremity no calf tenderness General Extremity: edema Skin no wounds Rashes: No rashes noted Psych activity/motor behavior normal Labs Labs Labs: Blood Type O POSITIVE Antibody Screen NEGATIVE Hct, (37-47) 29.3 % L Hgb, (12.0-15.0) 9.7 g/dL L Syphilis Total Ab, (Nonreactive) Nonreactive Group B Strep DNA, (Negative) Negative Miscellaneous Test Assessment & Plan (1) Active labor at term: (2) 37 weeks gestation of : PLAN: Plan Admit for labor Epidural prn
--- OUTSIDE RECORDS SUMMARY | 2025-04-03 02:05 | XMS RPT_ITS | CCD ---
Author Organization [facility] Care Team Providers Care Architect Intern Name Role Phone PHYSICIAN, NONE Primary [...] Willa Domingo DO Primary Care Provider [phone] RAQUEL VALERO Attending Unavailab le Willa Domingo DO Primary Care Provider Willa Domingo DO Primary Care Provider Willa Domingo DO Primary Care Provider Willa Rogers DO [...] Unavailable SUE, WILLA M Primary Care Unavailable MRALEE ALMANZA Referring Unavailable SUE, WILLA M Primary Care Unavailable MARLEE ALMANZA Attending Unavailable SUE, WILLA M Primary Care Unavailable SUE, WILLA M Primary Care Unavailable MARLEE ALMANZA Attending Unavailable SAMARIA HAJI Referring Unavailable SUE, WILLA M Primary Care Unavailable SAMARIA HAJI Attending Unavailable MARLEE ALMANZA Attending Unavailable SUE, [...] sources) Nuts (not including peanuts) Food allergy [facility] (20 sources) tree nut, unspecified; Translations: [TREE NUTS] Drug Allergy 05-19-2020 [facility] Work Phone: (5 sources) tree nut, unspecified; Translations: [tree nut] Allergy to substance 12-27-2020 [facility] Repository Medications Current Medications Medication Drug Class(es) [...] Start: 02-22-2025 take 1 capsule by mo [facility] once daily in the evening omeprazole (PRILOSEC) [...] ( VITAMIN ORAL) Take by mouth. Active [id number]-veaz-gvpvw-pla 28 mg-800 mcg- 200 mg cap (16 sources) Start: 11-03-2024 take 1 capsule by mouth once daily rpr546-xyjy-oywzl-ad a 28 mg-800 mcg- 200 mg cap [...] Comment on above: Take 1 tablet by [facility]. Take 1 and 1/2 [...] on above: Take 1 capsule by mo [facility] daily with food for 14 days, THEN [...] Comment on above: Take 10.9 mL by moaz h twice daily. 12 hr buPROPion hydrochloride [...] mg tablet Indications: 23 weeks gestation of ([facility]) , Supervision of high risk in second trimester ([facility]) , Heartburn Take 1 tablet [...] on above: Take 1 capsule by mo [facility] once daily. methylPREDNISolone 4 mg oral tablet [...] current use of drug therapy; Translations: [Other fci (current) drug therapy] 05-04-2024 Episodic Other complications [...] trimester; Translations: [Uterine size-date discrepancy, third trimester ([facility])] Onset: 03-16-2025 Episodic Other complications of (2 sources) Spotting per vagina in ; Translations: [Spotting complicating , third trimester] 03-29-2025 Episodic Other complications of (1 source) Other specified related conditions, third trimester; Translations: [Heartburn during in third trimester ([facility])] Onset: 02-22-2025 Episodic Other complications of (1 source) Supervision of high risk , unspecified, third trimester; Translations: [Supervision of high risk in third trimester ([facility])] Onset: 03-30-2025 Episodic Other complications of (1 source) Supervision of other high risk pregnancies, third trimester; Translations: [Supervision of other high risk pregnancies, third trimester ([facility])] Onset: 03-05-2025 Episodic Other complications of (1 source) Supervision of high risk , unspecified, second trimester; Translations: [Supervision of high risk in second trimester ([facility])] Onset: 01-25-2025 Episodic Other complications [...] Test Name Value Interpretation Reference Range Facility [facility] 04-01-2025 CNPN Telephone (OBGYWM) -------- MARZENA PICKERING ([id number]) 1990 [facility] Date Time Provider Department 04/01/25 OLE SIMMONS OBGYWM During your visit today, we recorded the following information about you: Sandra Nunez RN 04/01/2025 4:01 PM Signed 37w0d Pt calls stating she went to [facility] for c/o back pain AND bright red [...] been mucousy. Pt will send picture through ION Signature of description of bleeding. Informed Pt that [...] go to hospital. Pt voiced understanding. See ION Signature message Pt sent with picture attached. Sandra Nunez, Ole Ramachandran MD 04/01/2025 4:32 PM Signed noted. Ole Simmons MD Allergies As of Date: 04/01/2025 Noted Allergy Reaction TREE NUTS 05/19/2020 4 - Hives Comments: Occasionally gets hives when she eats cashews and almonds Date Reviewed: 03/30/2025 Reviewed by: Qian Nichols MA - Fully Assessed Reason for Visit: Patient Question [0147] Prescriptions as of 04/01/2025 - omeprazole (PRILOSEC) [...] 1/2 tablets by mouth once daily. - [id number]-yzpq-wnbts-gbl 28 mg-800 mcg- 200 mg cap Take [...] Status:Closed by OLE SIMMONS on 04/01/25 Normal [facility] Rule out Beta Strep (Grp. B) on 04-01-2025 DEVON Group B Beta Streptococcus is not isolated. Normal [facility] Comment on above: Performed By: #### M 100.3400 #### [facility] [address] [place], [place], [address] ROUTINE, GROUP B ST REPTOCOCCUS BY PCRon 03-30-2025 ROUTINE, GROUP B STREPTOCOCCUS BY PCR Not detected Normal [facility] Comment on above: Performed By: #### G BPCR ####[facility] LABCLIA [id number] [address] OF [facility] Urine Cultureon 03-30-2025 URC Culture exhibits no growth. Normal [facility] Comment on above: Performed By: #### M 100.2200, L400.0001 ####[facility] [address] [place], [place], [address] Absolute lymphocyte countOrd ered By: Aby Donovan on 03-29-2025 Lymphocytes Auto (Unsp spec) [#/Vol] 2.07 10*3/uL 0.83-4.51 [facility] Absolute neutrophil countOrd ered By: Aby Donovan on 03-29-2025 Neutrophils (Bld) [#/Vol] 6.8 10*3/uL 2.0-7.7 [facility] Activated partial thrombopla stin time (aPTT) in platelet poor plasma by coagulation aOrdered By: Aby Donovan on 03-29-2025 aPTT Coag (PPP) [Time] 31.1 s 24.1-36.2 [facility] Automated lymphocyte count a s percentage of total leukocytesOrdered By: Aby Donovan on 03-29-2025 Lymphocytes/100 WBC Auto (Unsp spec) 21.7 % 19-41 [facility] Basophil percentageOrdered B y: Aby Donovan on 03-29-2025 Basophils/100 WBC (Bld) 0.2 % 0-1 [facility] Bilirubin Test strip Ql (U)O rdered By: Erendirafaustino Hayes on 03-29-2025 Bilirubin Ql (U) Negative Negative [facility] CBC W/Diff, Automatedon 03-15 Absolute Lymph 2.07 X10 3/uL Normal 0.83-4.51 [facility] Comment on above: Performed By: #### L 100.0100 #### [facility] [address] [place], [address] Absolute Neut 6.8 X10 3/uL Normal 2.0-7.7 [facility] Comment on above: Performed By: #### L 100.0100 #### [facility] [address] [place], [address] Basophils/100 WBC (Bld) 0.2 % Normal 0-1 [facility] Comment on above: Performed By: #### L 100.0100 #### [facility] [address] [place], [address] Eosinophils/100 WBC (Bld) 1.0 % Normal 0-5 [facility] Comment on above: Performed By: #### L 100.0100 #### [facility] [address] [place], [address] Erythrocyte distribution width (RBC) [Ratio] 12.9 % Normal 11.6-14.6 [facility] Comment on above: Performed By: #### L 100.0100 #### [facility] [address] [place], [address] Hematocrit (Bld) [Volume fraction] 29.3 % Low 37-47 [facility] Comment on above: Performed By: #### L 100.0100 #### [facility] [address] [place], [address] Hemoglobin (Bld) [Mass/Vol] 9.7 g/dL Low 12.0-15.0 [facility] Comment on above: Performed By: #### L 100.0100 #### [facility] [address] [place], [address] IG% 0.500 Normal 0.0-0.9 [facility] Comment on above: Result Comment: IG% - Immature Granulocytes (promyelocytes, myelocytes and metamyelocytes) > 1% indicates that a LEFT SHIFT is Present. Performed By: #### L 100.0100 #### [facility] [address] [place], [address] Lymphocytes/100 WBC (Bld) 21.7 % Normal 19-41 [facility] Comment on above: Performed By: #### L 100.0100 #### [facility] [address] [place], [address] MCH (RBC) [Entitic mass] 27.9 pg Normal 27.0-32.0 [facility] Comment on above: Performed By: #### L 100.0100 #### [facility] [address] [place], [address] MCHC (RBC) [Mass/Vol] 33.1 g/dL Normal 32-36 [facility] Comment on above: Performed By: #### L 100.0100 #### [facility] [address] [place], [address] MCV (RBC) [Entitic vol] 84.2 fL Normal 81-99 [facility] Comment on above: Performed By: #### L 100.0100 #### [facility] [address] [place], [address] Monocytes/100 WBC (Bld) 4.8 % Normal 0-10 [facility] Comment on above: Performed By: #### L 100.0100 #### [facility] [address] [place], [address] Neutrophils/100 WBC (Bld) 71.8 % High 47-70 [facility] Comment on above: Performed By: #### L 100.0100 #### [facility] [address] [place], [address] Nucleated RBC (Bld) [#/Vol] 0 10*3/uL Normal 0-5 [facility] Comment on above: Performed By: #### L 100.0100 #### [facility] [address] [place], [address] Platelet mean volume (Bld) [Entitic vol] 11.3 fL Normal 6.2-12.0 [facility] Comment on above: Performed By: #### L 100.0100 #### [facility] [address] [place], [address] Platelets (Bld) [#/Vol] 283 10*3/uL Normal 150-450 [facility] Comment on above: Performed By: #### L 100.0100 #### [facility] [address] [place], [address] RBC (Bld) [#/Vol] 3.48 10*6/uL Low 4.2-5.4 [facility] Comment on above: Performed By: #### L 100.0100 #### [facility] [address] [place], [address] RDW SD 38.7 fl Normal 35.1-43.9 [facility] Comment on above: Performed By: #### L 100.0100 #### [facility] [address] [place], [address] WBC (Bld) [#/Vol] 9.5 10*3/uL Normal 4.4-11.0 [facility] Comment on above: Performed By: #### L 100.0100 #### [facility] [address] [place], [address] Eosinophil percentageOrdered By: Aby Venus on 03-29-2025 Eosinophils/100 WBC (Bld) 1.0 % 0-5 [facility] Erythrocyte distribution wid th ratioOrdered By: Aby Venus on 03-29-2025 Erythrocyte distribution width (RBC) [Ratio] 12.9 % 11.6-14.6 [facility] Erythrocyte distribution wid th standard deviationOrdered By: Abyharrison Donovan on 03-29-2025 Erythrocyte distribution width (RBC) [Ratio] 38.7 fl 35.1-43.9 [facility] Hematocrit Auto (Bld) [Volum e fraction]Ordered By: Abyharrison Donovan on 03-29-2025 Hematocrit (Bld) [Volume fraction] 29.3 % Low 37-47 [facility] Hemoglobin measurementOrdere d By: Abyharrison Donovan on 03-29-2025 Hemoglobin (Bld) [Mass/Vol] 9.7 g/dL Low 12.0-15.0 [facility] Immature granulocytes/100 WB C Auto (Bld)Ordered By: Abyharrison Donovan on 03-29-2025 Immature granulocytes/100 WBC (Bld) 0.500 % 0.0-0.9 [facility] Comment on above: IG% - Immature Granu locytes (promyelocytes, myelocytes and metamyelocytes) > 1% indicates that a LEFT SHIFT is Present. International normalized rat io (INR) calculationOrdered By: Abyharrison Donovan on 03-29-2025 INR Coag (Bld) [Relative time] 1.0 {INR} [facility] Ketones Test strip Ql (U)Ord ered By: Erendira Hayes on 03-29-2025 Ketones Ql (U) Negative Negative [facility] M8200.0100on 03-29-2025 M8200.0100 Negative Normal [facility] Comment on above: Performed By: #### M 8200.0100 #### [facility] [address] [place], [address] MCV (mean corpuscular volume ) determinationOrdered By: Aby Donovan on 03-29-2025 MCV (RBC) [Entitic vol] 84.2 fL 81-99 [facility] Mean corpuscular hemoglobin (MCH) determinationOrdered By: Aby Donovan on 03-29-2025 MCH (RBC) [Entitic mass] 27.9 pg 27.0-32.0 [facility] Mean corpuscular hemoglobin concentration (MCHC) determinationOrdered By: Aby Donovan on 03-29-2025 MCHC (RBC) [Mass/Vol] 33.1 g/dL 32-36 [facility] Mean platelet volume determi nationOrdered By: Aby Donovan on 03-29-2025 Platelet mean volume (Bld) [Entitic vol] 11.3 fL 6.2-12.0 [facility] Microscopic analysis of urin e for red blood cells (RBC)Ordered By: Erendira Hayes on 03-29-2025 Microscopic analysis of urine for red blood cells (RBC) 0 SEEN /hpf 0-5 [facility] Monocyte percentageOrdered B y: Aby Donovan on 03-29-2025 Monocytes/100 WBC (Bld) 4.8 % 0-10 [facility] Mucus LM Ql (Urine sed)Order ed By: Erendira Hayes on 03-29-2025 Mucus Ql (Urine sed) 0 SEEN /hpf [facility] Neutrophil percentageOrdered By: Aby Donovan on 03-29-2025 Neutrophils/100 WBC (Bld) 71.8 % High 47-70 [facility] Nitrite Test strip Ql (U)Ord ered By: Erendira Hayes on 03-29-2025 Nitrite Ql (U) Negative Negative [facility] Nucleated red blood cell per centageOrdered By: Aby Donovan on 03-29-2025 Nucleated RBC/100 WBC (Bld) [Ratio] 0 % 0-5 [facility] OB Triage Physician Noteon 0 03-29-2025 OB Triage Physician Note [facility] Medical Records Department [address] [facility] [place] [address] OB Triage Physician Note 03/29/25 0516 MR#: [id number] Acct: [id number] Name: MARZENA PICKERING Rep #: [id number] : 1990 34 From: Aby Donovan CNRuma PCP: Care Physician,No Primary Status:REG CLI Y [facility] - General HPI Narrative MARZENA PICKERING, is a 34 F at 36.4 weeks gestation who presents to triage with contractions that started yesterday. Denies any loss of fluid but had vaginal spotting since last night. [facility] Medical History (Updated 03/29/25 @ 05:27 [...] Donovan; No Primary Care Physician Signed Normal [facility] Partial Thromboplast Timeon 03-29-2025 aPTT Coag (Bld) [Time] 31.1 s Normal 24.1-36.2 [facility] Comment on above: Performed By: #### B TS, L300.4310, L300.3900, L509.8002 #### [facility] [address] [place], [address] Platelet countOrdered By: Mati Donovan on 03-29-2025 Platelets (Bld) [#/Vol] 283 10*3/uL 150-450 [facility] Protein Test strip Ql (U)Ord ered By: Erendira Hayes on 03-29-2025 Protein Ql (U) Negative Negative [facility] Prothrombin Time w/INRon INR Coag (PPP) [Relative time] 1.0 {INR} Normal [facility] Comment on above: Performed By: #### B TS, L300.4310, L300.3900, L509.8002 #### [facility] [address] [place], [address] PT Coag (PPP) [Time] 12.9 s Normal 11.7-14.9 [facility] Comment on above: Performed By: #### B TS, L300.4310, L300.3900, L509.8002 #### [facility] [address] [place], [address] Prothrombin timeOrdered By: Aby Donovan on 03-29-2025 PT Coag (PPP) [Time] 12.9 s 11.7-14.9 [facility] RBC Auto (Bld) [#/Vol]Ordere d By: Aby Donovan on 03-29-2025 RBC (Bld) [#/Vol] 3.48 10*6/uL Low 4.2-5.4 [facility] Squamous epithelial cells de tection in urine sediment by light microscopyOrdered By: Erendira Hayes on 03-29-2025 Epithelial cells.squamous LM Ql (Urine sed) 0-5 SEEN /hpf 5-10 [facility] Syphilis Antibodieson 2024 Syphilis Abs Non-Reactive Normal Nonreactive [facility] Comment on above: Performed By: #### B TS, L300.4310, L300.3900, L509.8002 #### [facility] [address] [place], [address] Type AND Screenon 03-29-2025 ABO and Rh group Nom (Bld) Blood group O Rh(D) positive Normal [facility] Comment on above: Order Comment: PN Performed By: #### B TS, L300.4310, L300.3900, L509.8002 #### [facility] [address] [place], [address] Urinalysis, Completeon 03-29 EPI,SQUAMOUS 0-5 SEEN Normal 5-10 [facility] Comment on above: Order Comment: CLEAN CATCH Performed By: #### M 100.2200, L400.0001 #### [facility] [address] [place], [address] BACTERIA 0 SEEN Normal None Seen [facility] Comment on above: Order Comment: CLEAN CATCH Performed By: #### M 100.2200, L400.0001 #### [facility] [address] [place], [address] Mucus Ql (Urine sed) 0 SEEN Normal [facility] Comment on above: Order Comment: CLEAN CATCH Performed By: #### M 100.2200, L400.0001 #### [facility] [address] [place], [address] RBC 0 SEEN Normal 0-5 [facility] Comment on above: Order Comment: CLEAN CATCH Performed By: #### M 100.2200, L400.0001 #### [facility] [address] [place], [address] WBC 0 SEEN Normal 0-5 [facility] Comment on above: Order Comment: CLEAN CATCH Performed By: #### M 100.2200, L400.0001 #### [facility] [address] [place], [address] Urine clarityOrdered By: Darian Hayes on 03-29-2025 Clarity (U) Clear Clear [facility] Urine color determinationOrd ered By: Erendira Hayes on 03-29-2025 Color (U) Yellow Yellow [facility] Urine glucose detectionOrder ed By: Erendira Hayes on 03-29-2025 Glucose Ql (U) Normal mg/dl Normal [facility] Urine leukocyte esterase det ection by dipstickOrdered By: Erendira Hayes on 03-29-2025 Leukocyte esterase Test strip Ql (U) Negative Negative [facility] Urine pHOrdered By: Erendira del rio on 03-29-2025 pH (U) 7.0 [pH] 5.0 - 8.0 [facility] Urine sediment bacteria coun t by microscopy (number/high power field)Ordered By: Erendira Hayes on 03-29-2025 Bacteria LM.HPF (Urine sed) [#/Area] 0 /[HPF] None Seen [facility] Urine specific gravity measu rementOrdered By: Erendira Hayes on 03-29-2025 Specific gravity (U) [Rel density] 1.010 1.002-1.030 [facility] Urine urobilinogen measureme ntOrdered By: Erendira Hayes on 03-29-2025 Urobilinogen Ql (U) Normal mg/dl Normal [facility] White blood cell (WBC) count Ordered By: Aby Donovan on 03-29-2025 WBC (Bld) [#/Vol] 9.5 10*3/uL 4.4-11.0 [facility] White blood cell countOrdere d By: Erendira Hayes on 03-29-2025 White blood cell count 0 SEEN /hpf 0-5 [facility] CNPNon 03-23-2025 [place] Telephone ([employer]) -------- MARZENA PICKERING ([id number]) 1990 F [facility] Date Time Provider Department 03/23/25 ANJALI [...] Assessed Reason for Visit: [facility] COVID Outreach [1329] Prescriptions as of 03/23/2025 - omeprazole (PRILOSEC) [...] 1/2 tablets by mouth once daily. - oxc226-bwai-nsmxr-wxx 28 mg-800 mcg- 200 mg cap Take [...] Status:Closed by ANJALI GUZMÁN on 03/23/25 Normal [facility] Alecia 03-20-2025 CNPN Telephone ([employer]) -------- MARZENA PICKERING ([id number]) 1990 [facility] Date Time Provider Department 03/20/25 JESSY SEGURA [...] Onset: 03/18/25 -Best email for electronic communication: [email or web address]; -Email sent to leadership: [email or web address] - Employee ID: [id number] Plan - Discussed positive COVID19 result. Reinforced self-isolation, avoiding public areas and gatherings. Mask while home with family and not isolated alone - Advised no work until cleared by Occupational Health. 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16[facility] Prescriptions as of 03/20/2025 - omeprazole (PRILOSEC) [...] 1/2 tablets by mouth once daily. - qrw190-tppw-fmazg-ldd 28 mg-800 mcg- 200 mg cap Take [...] Status:Closed by JESSY SEGURA on 03/20/25 Normal [facility] OB Triage Physician Noteon 0 03-17-2025 OB Triage Physician Note [facility] Medical Records Department [address] [place] [address] OB Triage Physician Note 03/17/252035 MR#: [id number] Acct: [id number] Name: MARZENA PICKERING Rep #: [id number] : 1990 34 From: Miriam Ramsey MD PCP: Care Physician,No Primary Status:REG CLI Y Location: [id number] HPI - General General Date of Service: 03/17/25 HPI Narrative MARZENA PICKERING, is a 34 F @ 34.6 weeks who presents c/o contractions. reports has been not feeling great- no fevers - but is not drinking much water. denies VB, LOF. [facility] Medical History (Updated 03/17/25 @ 20:[address] Miiram Ramsey MD) Genital herpes affecting Home Medications [...] MD; No Primary Care Physician Signed Normal [facility] Examination level ultrasound on 03-16-2025 [facility] Radiology Study observation (narrative) [facility] CBC W Auto Differential pane l (Bld)on 02-22-2025 Basophils (Bld) [#/Vol] 10*3/uL Normal <0.11 [facility] Comment on above: Order Comment: Speci men Type: BLOOD SPECIMENOrdering Facility: [facility] Address: [address] [place] [address] Performed By: #### 5 7021-8 ####[facility] LESLYWNCLIA [id number] [place] [address] [place] Basophils/100 WBC (Bld) 0.2 % Normal [facility] Comment on above: Order Comment: Speci men Type: BLOOD SPECIMENOrdering Facility: [facility] Address: [address] [place] [address] Performed By: #### 5 7021-8 ####[facility] [id number] [place] [address] [place] Differential cell count method Nom (Bld) Auto Normal [facility] Comment on above: Order Comment: Speci men Type: BLOOD SPECIMENOrdering Facility: [facility] Address: [address] [place] [address] Performed By: #### 5 7021-8 ####[facility] [id number] [place] [address] [place] Eosinophils (Bld) [#/Vol] 0.27 10*3/uL Normal <0.46 [facility] Comment on above: Order Comment: Speci men Type: BLOOD SPECIMENOrdering Facility: [facility] Address: [address] [place] [address] Performed By: #### 5 7021-8 ####[facility] MILLWNCLIA [id number] [place] [address] [place] Eosinophils/100 WBC (Bld) 3.3 % Normal [facility] Comment on above: Order Comment: Speci men Type: BLOOD SPECIMENOrdering Facility: [facility] Address: [address] [place] [address] Performed By: #### 5 7021-8 ####[facility] [id number] [place] [address] [place] Erythrocyte distribution width (RBC) [Ratio] 13.2 % Normal 11.5-15.0 [facility] Comment on above: Order Comment: Speci men Type: BLOOD SPECIMENOrdering Facility: [facility] Address: [address] [place] [address] Performed By: #### 5 7021-8 ####[facility] EMERGENCY ROOM [id number] [place] [address] [place] Hematocrit (Bld) [Volume fraction] 30.8 % Low 36.0-46.0 [facility] Comment on above: Order Comment: Speci men Type: BLOOD SPECIMENOrdering Facility: [facility] Address: [address] [place] [address] Performed By: #### 5 7021-8 ####[facility] EMERGENCY ROOM [id number] [place] [address] [place] Hemoglobin (Bld) [Mass/Vol] 10.5 g/dL Low 11.5-15.5 [facility] Comment on above: Order Comment: Speci men Type: BLOOD SPECIMENOrdering Facility: [facility] Address: [address] [place] [address] Performed By: #### 5 7021-8 ####[facility] EMERGENCY ROOM [id number] [place] [address] [place] Immature granulocytes (Bld) [#/Vol] 0.04 10*3/uL Normal <0.10 [facility] Comment on above: Order Comment: Speci men Type: BLOOD SPECIMENOrdering Facility: [facility] Address: [address] [place] [address] Performed By: #### 5 7021-8 ####[facility] [id number] [place] [address] [place] Immature granulocytes/100 WBC (Bld) 0.5 % Normal [facility] Comment on above: Order Comment: Speci men Type: BLOOD SPECIMENOrdering Facility: [facility] Address: [address] [place] [address] Performed By: #### 5 7021-8 ####[facility] [id number] [place] [address] [place] Lymphocytes (Bld) [#/Vol] 1.81 10*3/uL Normal 1.00-4.00 [facility] Comment on above: Order Comment: Speci men Type: BLOOD SPECIMENOrdering Facility: [facility] Address: [address] [place] [address] Performed By: #### 5 7021-8 ####[facility] EMERGENCY ROOM [id number] [place] [address] [place] Lymphocytes/100 WBC (Bld) 22.2 % Normal [facility] Comment on above: Order Comment: Speci men Type: BLOOD SPECIMENOrdering Facility: [facility] Address: [address] [place] [address] Performed By: #### 5 7021-8 ####[facility] [id number] [place] [address] [place] MCH (RBC) [Entitic mass] 29.7 pg Normal 26.0-34.0 [facility] Comment on above: Order Comment: Speci men Type: BLOOD SPECIMENOrdering Facility: [facility] Address: [address] [place], [place] [address] Performed By: #### 5 7021-8 ####[facility] EMERGENCY ROOM [id number] [place] [address] [place] MCHC (RBC) [Mass/Vol] 34.1 g/dL Normal 30.5-36.0 [facility] Comment on above: Order Comment: Speci men Type: BLOOD SPECIMENOrdering Facility: [facility] Address: [address] [place] [address] Performed By: #### 5 7021-8 ####[facility] KENYACENTREVILLEJAIDEN [id number] [place] [address] [place] MCV (RBC) [Entitic vol] 87.3 fL Normal 80.0-100.0 [facility] Comment on above: Order Comment: Speci men Type: BLOOD SPECIMENOrdering Facility: [facility] Address: [address] [place] [address] Performed By: #### 5 7021-8 ####[facility] [id number] [place] [address] [place] Monocytes (Bld) [#/Vol] 0.53 10*3/uL Normal <0.87 [facility] Comment on above: Order Comment: Speci men Type: BLOOD SPECIMENOrdering Facility: [facility] Address: [address] [place] [address] Performed By: #### 5 7021-8 ####[facility] [id number] [place] [address] [place] Monocytes/100 WBC (Bld) 6.5 % Normal [facility] Comment on above: Order Comment: Speci men Type: BLOOD SPECIMENOrdering Facility: [facility] Address: [address] [place] [address] Performed By: #### 5 7021-8 ####[facility] [id number] [place] [address] [place] Neutrophils (Bld) [#/Vol] 5.49 10*3/uL Normal 1.45-7.50 [facility] Comment on above: Order Comment: Speci men Type: BLOOD SPECIMENOrdering Facility: [facility] Address: [address] [place] [address] Performed By: #### 5 7021-8 ####[facility] KENYACENTREVILLEYILIA [id number] [place] [address] [place] Neutrophils/100 WBC (Bld) 67.3 % Normal [facility] Comment on above: Order Comment: Speci men Type: BLOOD SPECIMENOrdering Facility: [facility] Address: [address] [place] [address] Performed By: #### 5 7021-8 ####[facility] EMERGENCY ROOM [id number] [place] [address] [place] Nucleated RBC (Bld) [#/Vol] 10*3/uL Normal <0.01 [facility] Comment on above: Order Comment: Speci men Type: BLOOD SPECIMENOrdering Facility: [facility] Address: [address] [place] [address] Performed By: #### 5 7021-8 ####[facility] EMERGENCY ROOM [id number] [place] [address] [place] Nucleated RBC/100 WBC (Bld) [Ratio] 0.0 /100 WBC Normal [facility] Comment on above: Order Comment: Speci men Type: BLOOD SPECIMENOrdering Facility: [facility] Address: [address] [place] [address] Performed By: #### 5 7021-8 ####[facility] EMERGENCY ROOM [id number] [place] [address] [place] Platelet mean volume (Bld) [Entitic vol] 10.6 fL Normal 9.0-12.7 [facility] Comment on above: Order Comment: Speci men Type: BLOOD SPECIMENOrdering Facility: [facility] Address: [address] [place] [address] Performed By: #### 5 7021-8 ####[facility] [id number] [place] [address] [place] Platelets (Bld) [#/Vol] 267 10*3/uL Normal 150-400 [facility] Comment on above: Order Comment: Speci men Type: BLOOD SPECIMENOrdering Facility: [facility] Address: [address] [place] [address] Performed By: #### 5 7021-8 ####[facility] [id number] [place] [address] [place] RBC (Bld) [#/Vol] 3.53 10*6/uL Low 3.90-5.20 [facility] Comment on above: Order Comment: Speci men Type: BLOOD SPECIMENOrdering Facility: [facility] Address: [address] [place] [address] Performed By: #### 5 7021-8 ####[facility] [id number] [place] [address] [place] WBC (Bld) [#/Vol] 8.16 10*3/uL Normal 3.70-11.00 [facility] Comment on above: Order Comment: Speci men Type: BLOOD SPECIMENOrdering Facility: [facility] Address: [address] [place] [address] Performed By: #### 5 7021-8 ####[facility] [id number] [place] [address] [place] Ferritin SerPl-mCncon 2024 Ferritin [Mass/Vol] 11.1 ng/mL Low 14.7-205.1 [facility] Comment on above: Order Comment: Speci men Type: BLOOD SPECIMENOrdering Facility: [facility] Address: [address] [place] [address] Performed By: #### 5 0190-8, 2276-4 ####[facility] LABCLIA [id number] [place] [address] [place] Iron and Iron binding capaci ty panelon 02-22-2025 Iron [Mass/Vol] 43 ug/dL Normal 41-186 [facility] Comment on above: Order Comment: Speci men Type: BLOOD SPECIMENOrdering Facility: [facility] Address: [address] [place] [address] Performed By: #### 5 0190-8, 2275- ####[facility] LABCL[facility] [id number] [place] [address] [place] Iron binding capacity [Mass/Vol] 482 ug/dL High 232-386 [facility] Comment on above: Order Comment: Speci men Type: BLOOD SPECIMENOrdering Facility: [facility] Address: [address] [place] [address] Performed By: #### 5 0190-8, 2275-10 ####[facility] LABCL[facility] [id number] [place] [address] [place] Iron/TIBC [Molar ratio] 8.9 % Low 15.0-57.0 [facility] Comment on above: Order Comment: Speci men Type: BLOOD SPECIMENOrdering Facility: [facility] Address: [address] [place] [address] Performed By: #### 5 0190-8, 2275-10 ####[facility]CL[facility] [id number] [place] [address] [place] BACTERIAL VAGINOSIS NAATon 0 02-18-2025 Lactobacillus crispatus+gasseri+mumtaz senii + Gardnerella vaginalis + Atopobium vaginae rRNA NIGHAT+probe Ql (Vag fld) Not detected Normal Not detected [facility] Comment on above: Order Comment: Speci men Type: SWAB Ordering Facility: [facility] Address: [address] [place] [address] Performed By: #### B VAMP #### [facility] CLIA [id number] [address] [place] [address] [place] C. trachomatis+N. gonorrhoea e DNA NIGHAT+probe Ql (Unsp spec)on 02-18-2025 C. trachomatis rRNA NIGHAT+probe Ql (Unsp spec) Not detected Normal Not detected [facility] Comment on above: Order Comment: Speci men Type: SWAB [facility]ing Facility: [facility] Address: [address] [place] [address] Performed By: #### 3 6902-5, TRVAMP #### [facility] CLIA [id number] [address] N. gonorrhoeae rRNA NIGHAT+probe Ql (Unsp spec) Not detected Normal Not detected [facility] Comment on above: Order Comment: Speci men Type: SWAB Ordering Facility: [facility] Address: [address] [place] [address] Performed By: #### 3 6902-5, TRVAMP #### [facility] CLIA [id number] [address] ED Triage Noteon 02-18-2025 ED Triage Note HNO ID: [id number] Author: RUBIA TILLMAN APRN.[employer] ARCHITECT Service: Emergency Medicine Author Type: Nurse Practitioner [...] placed in this encounter. SIGNATURE: Rubia Tillman APRN.[employer] ARCHITECT Normal [facility] TRICHOMONAS VAGINALIS NAATon 02-18-2025 T. vaginalis DNA NIGHAT+probe Ql (Unsp spec) Not detected Normal Not detected [facility] Comment on above: Order Comment: Speci men Type: SWAB Ordering Facility: [facility] Address: [address] [place] [address] Performed By: #### 3 6902-5, PATRICK #### [facility] CLIA [id number] [address] STATES OF [facility] CBC W Auto Differential pane l (Bld)on 01-25-2025 Basophils (Bld) [#/Vol] 0.03 10*3/uL Normal <0.11 [facility] Comment on above: Order Comment: Speci men Type: BLOOD SPECIMENOrdering Facility: [facility] Address: [address] [place] [address] Performed By: #### 5 7021-8 ####[facility] [id number] [place] [address] [place] Basophils/100 WBC (Bld) 0.3 % Normal [facility] Comment on above: Order Comment: Speci men Type: BLOOD SPECIMENOrdering Facility: [facility] Address: [address] [place] [address] Performed By: #### 5 7021-8 ####[facility] EMERGENCY ROOM [id number] [place] [address] [place] Differential cell count method Nom (Bld) Auto Normal [facility] Comment on above: Order Comment: Speci men Type: BLOOD SPECIMENOrdering Facility: [facility] Address: [address] [place] [address] Performed By: #### 5 7021-8 ####[facility] [id number] [place] [address] [place] Eosinophils (Bld) [#/Vol] 0.31 10*3/uL Normal <0.46 [facility] Comment on above: Order Comment: Speci men Type: BLOOD SPECIMENOrdering Facility: [facility] Address: [address] [place] [address] Performed By: #### 5 7021-8 ####[facility] KENYATONNYA [id number] [place] [address] [place] Eosinophils/100 WBC (Bld) 3.1 % Normal [facility] Comment on above: Order Comment: Speci men Type: BLOOD SPECIMENOrdering Facility: [facility] Address: [address] [place] [address] Performed By: #### 5 7021-8 ####[facility] [id number] [place] [address] [place] Erythrocyte distribution width (RBC) [Ratio] 13.3 % Normal 11.5-15.0 [facility] Comment on above: Order Comment: Speci men Type: BLOOD SPECIMENOrdering Facility: [facility] Address: [address] [place] [address] Performed By: #### 5 7021-8 ####[facility] [id number] [place] [address] [place] Hematocrit (Bld) [Volume fraction] 29.6 % Low 36.0-46.0 [facility] Comment on above: Order Comment: Speci men Type: BLOOD SPECIMENOrdering Facility: [facility] Address: [address] [place] [address] Performed By: #### 5 7021-8 ####[facility] [id number] [place] [address] [place] Hemoglobin (Bld) [Mass/Vol] 10.1 g/dL Low 11.5-15.5 [facility] Comment on above: Order Comment: Speci men Type: BLOOD SPECIMENOrdering Facility: [facility] Address: [address] [place] [address] Performed By: #### 5 7021-8 ####[facility] [id number] [place] [address] [place] Immature granulocytes (Bld) [#/Vol] 0.07 10*3/uL Normal <0.10 [facility] Comment on above: Order Comment: Speci men Type: BLOOD SPECIMENOrdering Facility: [facility] Address: [address] [place] [address] Performed By: #### 5 7021-8 ####[facility] EM[facility]ENCY RO[facility] [id number] [place] [address] [place] Immature granulocytes/100 WBC (Bld) 0.7 % Normal [facility] Comment on above: Order Comment: Speci men Type: BLOOD SPECIMENOrdering Facility: [facility] Address: [address] [place] [address] Performed By: #### 5 7021-8 ####[facility] EM[facility]ENCY RO[facility] [id number] [place] [address] [place] Lymphocytes (Bld) [#/Vol] 1.94 10*3/uL Normal 1.00-4.00 [facility] Comment on above: Order Comment: Speci men Type: BLOOD SPECIMENOrdering Facility: [facility] Address: [address] [place] [address] Performed By: #### 5 7021-8 ####[facility] EM[facility]ENCY RO[facility] [id number] [place] [address] [place] Lymphocytes/100 WBC (Bld) 19.2 % Normal [facility] Comment on above: Order Comment: Speci men Type: BLOOD SPECIMENOrdering Facility: [facility] Address: [address] [place] [address] Performed By: #### 5 7021-8 ####[facility]ENC[facility] RO[facility] [id number] [place] [address] [place] MCH (RBC) [Entitic mass] 30.0 pg Normal 26.0-34.0 [facility] Comment on above: Order Comment: Speci men Type: BLOOD SPECIMENOrdering Facility: [facility] Address: [address] [place] [address] Performed By: #### 5 7021-8 ####[facility] JESSICAAGNIESZKAA [id number] [place] [address] [place] [facility] MCHC (RBC) [Mass/Vol] 34.1 g/dL Normal 30.5-36.0 [facility] Comment on above: Order Comment: Speci men Type: BLOOD SPECIMENOrdering Facility: [facility] Address: [address] [place] [address] Performed By: #### 5 7021-8 ####[facility] SPRINGSAGNIESZKAFaustino [id number] [place] [address] [place] MCV (RBC) [Entitic vol] 87.8 fL Normal 80.0-100.0 [facility] Comment on above: Order Comment: Speci men Type: BLOOD SPECIMENOrdering Facility: [facility] Address: [address] [place] [address] Performed By: #### 5 7021-8 ####[facility] SPRINGSAGNIESZKAA [id number] [place] [address] [place] Monocytes (Bld) [#/Vol] 0.60 10*3/uL Normal <0.87 [facility] Comment on above: Order Comment: Speci men Type: BLOOD SPECIMENOrdering Facility: [facility] Address: [address] [place] [address] Performed By: #### 5 7021-8 ####[facility] SPRINGSYILIA [id number] [place] [address] [place] Monocytes/100 WBC (Bld) 5.9 % Normal [facility] Comment on above: Order Comment: Speci men Type: BLOOD SPECIMENOrdering Facility: [facility] Address: [address] [place] [address] Performed By: #### 5 7021-8 ####[facility] [id number] [place] [address] [place] Neutrophils (Bld) [#/Vol] 7.17 10*3/uL Normal 1.45-7.50 [facility] Comment on above: Order Comment: Speci men Type: BLOOD SPECIMENOrdering Facility: [facility] Address: [address] [place] [address] Performed By: #### 5 7021-8 ####[facility] [id number] [place] [address] [place] Neutrophils/100 WBC (Bld) 70.8 % Normal [facility] Comment on above: Order Comment: Speci men Type: BLOOD SPECIMENOrdering Facility: [facility] Address: [address] [place] [address] Performed By: #### 5 7021-8 ####[facility] [id number] [place] [address] [place] Nucleated RBC (Bld) [#/Vol] 10*3/uL Normal <0.01 [facility] Comment on above: Order Comment: Speci men Type: BLOOD SPECIMENOrdering Facility: [facility] Address: [address] [place] [address] Performed By: #### 5 7021-8 ####[facility] [id number] [place] [address] [place] Nucleated RBC/100 WBC (Bld) [Ratio] 0.0 /100 WBC Normal [facility] Comment on above: Order Comment: Speci men Type: BLOOD SPECIMENOrdering Facility: [facility] Address: [address] [place] [address] Performed By: #### 5 7021-8 ####[facility]SNCL[facility] [id number] [place] [address] [place] Platelet mean volume (Bld) [Entitic vol] 10.3 fL Normal 9.0-12.7 [facility] Comment on above: Order Comment: Speci men Type: BLOOD SPECIMENOrdering Facility: [facility] Address: [address] [place] [address] Performed By: #### 5 7021-8 ####[facility] SPRINGSNCA [id number] [place] [address] [place] Platelets (Bld) [#/Vol] 266 10*3/uL Normal 150-400 [facility] Comment on above: Order Comment: Speci men Type: BLOOD SPECIMENOrdering Facility: [facility] Address: [address] [place] [address] Performed By: #### 5 7021-8 ####[facility] SPRINGSNCA [id number] [place] [address] [place] RBC (Bld) [#/Vol] 3.37 10*6/uL Low 3.90-5.20 [facility] Comment on above: Order Comment: Speci men Type: BLOOD SPECIMENOrdering Facility: [facility] Address: [address] [place] [address] Performed By: #### 5 7021-8 ####[facility] [id number] [place] [address] [place] WBC (Bld) [#/Vol] 10.12 10*3/uL Normal 3.70-11.00 [facility] Comment on above: Order Comment: Speci men Type: BLOOD SPECIMENOrdering Facility: [facility] Address: [address] [place] [address] Performed By: #### 5 7021-8 ####[facility]SN[facility] [id number] [place] [address] [place] Ferritin SerPl-mCncon 2024 Ferritin [Mass/Vol] 14.9 ng/mL Normal 14.7-205.1 [facility] Comment on above: Order Comment: Speci men Type: BLOOD SPECIMENOrdering Facility: [facility] Address: [address] [place] [address] Performed By: #### 5 0190-8, 2275-10 ####[facility] LABCLIA [id number] [address] [address] [place] GESTATIONAL GLUCOSE SCREEN, 1-HOUR, 50 GRAM, NON-FASTINGon 01-25-2025 Glucose [Mass/Vol] 105 mg/dL Normal 74-134 [facility] Comment on above: Order Comment: Speci men Type: BLOOD SPECIMENOrdering Facility: [facility] Address: [address] [place] [address] Result Comment: [facility] Congress of Obstetricians and Gynecologists (Anjum/Chanel) guidelines state a gestational diabetes mellitus positive screen is made, in women not previously diagnosed with overt diabetes, when the 1 hr plasma glucose level is equal to or above 140 mg/dL. The [facility] [employer] and [facility] [place] recommends a 135 mg/dL cutoff. Performed By: #### G LTGST ####[facility]ENC[facility] ROOM [id number] [place] [id number] [place] Iron and Iron binding capaci ty panelon 01-25-2025 Iron [Mass/Vol] 36 ug/dL Low 41-186 [facility] Comment on above: Order Comment: Speci men Type: BLOOD SPECIMENOrdering Facility: [facility] Address: [address] [place] [address] Performed By: #### 5 0190-8, 2275-10 ####[facility] LABCL[facility] [id number] [place] [id number] [place] Iron binding capacity [Mass/Vol] 448 ug/dL High 232-386 [facility] Comment on above: Order Comment: Speci men Type: BLOOD SPECIMENOrdering Facility: [facility] Address: [address] [place] [address] Performed By: #### 5 0190-8, 2275-4 ####[facility] LABIA [id number] [place] [address] [place] Iron/TIBC [Molar ratio] 8.0 % Low 15.0-57.0 [facility] Comment on above: Order Comment: Speci men Type: BLOOD SPECIMENOrdering Facility: [facility] Address: [address] [place] [address] Performed By: #### 5 0190-8, 4 ####[facility] LABIA [id number] [place] [address] [place] F Reagin and Treponema pallidu m IgG and IgM [Interp]on 01-25-2025 T. pallidum IgG+IgM IA Ql (S) Non-Reactive Normal Nonreactive [facility] Comment on above: Order Comment: Speci men Type: BLOOD SPECIMENOrdering Facility: [facility] [facility] Address: [address] [place] [address] Performed By: #### 7 3752-8 ####[facility] [id number] [place] [address] [place] Reagin+T pallidum IgG+IgM Se rPl-Impon 01-25-2025 Reagin and Treponema pallidum IgG and IgM [Interp] Cannot exclude recent Treponemal infection if specimen collected within 7-10 days after appearance of suspect lesions or 2-3 weeks after an exposure. Clinical correlation is required. [facility] Comment on above: Order Comment: Speci men Type: BLOOD SPECIMENOrdering Facility: [facility] Address: [address] [place] [address] Performed By: #### 7 3752-8 ####[facility] [id number] [address] [address] [place] [id number] 01-18-2025 [id number] HNO ID: [id number] Author: NAVYA OCHOA RN Service: ? Author Type: Registered Nurse Type: [id number] Filed: 01/18/2025 08:55 Note Text: REPORT THE [...] If you think you broke your water [facility] HISTORY PHYSICALon HISTORY PHYSICAL HNO ID: [id number] Author: DENISE REICH MD Service: Obstetrics Author [...] was discussed with the patient or authorized labor representative. The patient or authorized labor representative has agreed to proceed with the [...] DATE: January 18, 2025 TIME: 8:53 AM [facility] ED NOTEon 01-17-2025 ED NOTE HNO ID: [id number] Author: ANNE-MARIE CARRASCO RN Service: ? Author Type: Registered Nurse Type: ED Notes Filed: 01/17/2025 23:04 Note Text: PT REPORT WAS GIVEN TO JOSE ANTONIO VELASQUEZ FROM OB. PT TAKEN TO OB VIA W/C BY VIVIEN ALFONSO [facility] Examination level ultrasound on 10-07-2024 Indication First trimester anatomic survey Impression REMOTE READ The patient is referred for a first trimester anatomy scan including nuchal translucency measurement as clinically indicated. - Single, live, intrauterine . - [place] rump length measurement is consistent with the [...] view: suboptimal 4-chamber view with color: suboptimal [id number] view: suboptimal Abdominal cord insertion: normal Stomach: [...] Read By: Agueda Hernandez MD MATERNAL MEDICINE [facility] Examination level ultrasound on 10-06-2024 Radiology Study observation (narrative) [facility] [id number] PLUSon 10-06-2024 Cell-free DNA./Cell-free DNA.total Dosage of chromosome-specific cfDNA (cfDNA) [Molar fraction] 18% Normal [facility] Comment on above: Order Comment: Speci men Type: BLOOD SPECIMENOrdering Facility: [facility] Address: [address] [place] [address] Performed By: #### M AT21 ####[facility] LABCLIA [id number] [place] [address] Chr 13+18+21+X+Y aneuploidy Dosage of chromosome-specific cfDNA Ql (cfDNA) Negative Normal [facility] Comment on above: Order Comment: Speci men Type: BLOOD SPECIMENOrdering Facility: [facility] Address: [address] [place] [address] Performed By: #### M AT21 ####[facility] LABCLIA [id number] [place] [address] Chr 21 trisomy Dosage of chromosome-specific cfDNA Ql (cfDNA) Negative Normal [facility] Comment on above: Order Comment: Speci men Type: BLOOD SPECIMENOrdering Facility: [facility] Address: [address] [place] [address] Performed By: #### M AT21 ####[facility] LABCLIA [id number] [place] [address] Chr X and Y aneuploidy risk Sequencing Ql (cfDNA) [Interp] Not detected Normal [facility] Comment on above: Order Comment: Speci men Type: BLOOD SPECIMENOrdering Facility: [facility] Address: [address] [place] [address] Result Comment: Not Detected Not Detected Performed By: #### M AT21 ####[facility] LABCLIA [id number] [place] [address] Citation Espinoza (Reference lab test) Comment [facility] Comment on above: Order Comment: Speci men Type: BLOOD SPECIMENOrdering Facility: [facility] Address: [address] [place] [address] Result Comment: 1. P yvette TIMMONS, et al. Sera Med. 2012;14(3):296-305. 2. Sandra GRUBBS, et al. Prenat Diag. 2013;33(6):591-597. 3. Shailesh C, et al. Clin Chem. 2015 Oct;61(4):608-616. 4. Alison TIMMONS, et al. Sera Med. 2011;13(11):913-920. 5. [facility] Practice Bulletin No. 226, Apr 2020. Performed By: #### M AT21 ####[facility] LABCLIA [id number] [place] [id number] Gestational age Estimated from conception date [place] [facility] Comment on above: Order Comment: Speci men Type: BLOOD SPECIMENOrdering Facility: [facility] Address: [address] [place] [address] Performed By: #### M AT21 ####[facility] LABCLIA [id number] [place] [address] GESTATIONALAGE AGE > OR = 9W Yes Normal [facility] Comment on above: Order Comment: Speci men Type: BLOOD SPECIMENOrdering Facility: [facility] Address: [address] [place] [address] Performed By: #### M AT21 ####[facility] LABCLIA [id number] [place] [address] Laboratory comment Espinoza (Report) Comment [facility] Comment on above: Order Comment: Speci men Type: BLOOD SPECIMENOrdering Facility: [facility] Address: [address] [place] [address] Result Comment: The MaterniT(R) 21 PLUS laboratory-developed test (LDT) analyzes circulating cell-free DNA from a maternal blood sample. This test is used for screening purposes and not diagnostic. Clinical correlation is recommended. Validation data on twin pregnancies is limited and the ability of this test to detect aneuploidy in higher multiple gestations has not yet been validated. Performed By: #### M AT21 ####[facility] LABCLIA [id number] [place] [address] assistant director of public works name Nom (Provider) Comment [facility] Comment on above: Order Comment: Speci men Type: BLOOD SPECIMENOrdering Facility: [facility] Address: [address] [place] [address] Result Comment: This specimen showed an expected representation of chromosome 21, 18 and 13 material. Clinical correlation is suggested. Comment Kenneth Randall MD, PhD, Director, [facility] Performed By: #### M AT21 ####[facility] LABCLIA [id number] [place] [address] LIMITATIONS OF THE TEST Comment [facility] Comment on above: Order Comment: Speci men Type: BLOOD SPECIMENOrdering Facility: [facility] Address: [address] [place] [address] Result Comment: Sb alexander the results of [...] and Fragmin(R)). Performed By: #### M AT21 ####[facility] LABCLIA [id number] [place] [address] Monosomy X risk Dosage of chromosome-specific cfDNA Ql (Plasma cell-free+WBC DNA) [Interp] Not detected [facility] Comment on above: Order Comment: Speci men Type: BLOOD SPECIMENOrdering Facility: [facility] Address: [address] [place] [address] Performed By: #### M AT21 ####[facility] LABCLIA [id number] [place] [address] NEGATIVE PREDICTIVE VALUE Note [facility] Comment on above: Order Comment: Speci men Type: BLOOD SPECIMENOrdering Facility: [facility] Address: [address] [place] [address] Result Comment: The Negative Predictive Value (NPV) for trisomy 21, 18, and 13 is greater than 99%. The NPV for SCA and ESS cannot be calculated as SCA and ESS are only reported when an abnormality is detected. Performed By: #### M AT21 ####[facility] LABIA [id number] [facility] [place] [address] PERFORMANCE CHARACTERISTICS Note [facility] Comment on above: Order Comment: Cally rae Type: BLOOD SPECIMENOrdering Facility: [facility] Address: [address], [place] [address] Result Comment: ! Sex ! Accuracy: 99.4% [...] gestation only. Performed By: #### M AT21 ####[facility] LABClearGistIA [id number] [place] [address] POSITIVE PREDICTIVE VALUE N/A [facility] Comment on above: Order Comment: Cally rae Type: BLOOD SPECIMENOrdering Facility: [facility] Address: [address] [place] [address] Performed By: #### M AT21 ####[facility] LABCLIA [id number] [place] [address] Reference Lab Test Method Comment [facility] Comment on above: Order Comment: Cally rae Type: BLOOD SPECIMENOrdering Facility: [facility] Address: [address] [place] [address] Result Comment: See Notes Circulating cell-free DNA [...] and 22. Performed By: #### M AT21 ####[facility] LABCLIA [id number] [place] [address] Service comment (Unsp spec) [Interp] Comment [facility] Comment on above: Order Comment: Speci men Type: BLOOD SPECIMENOrdering Facility: [facility] Address: [address] [place] [address] Result Comment: See Notes [employer] is a subsidiary of [employer], using the brand [employer]. This test was developed and its performance characteristics determined by [employer]. It has not been cleared or approved by the Food and Drug Administration. This laboratory is certified under the Clinical Laboratory Improvement Amendments (CLIA) as qualified to perform high complexity clinical laboratory testing and accredited by the [employer] (CAP). If there is future clinical need for adding MaterniT GENOME testing, this specimen will be available until term. [facility] samples will not be retained beyond 60 days. [facility] patients will have to send a new sample for re-sequencing ([facility] Test Code: [id number]). Performed By: #### M AT21 ####[facility] LABCLIA [id number] [place] [address] Sex Dosage of chromosome-specific cfDNA Nom (cfDNA) Comment [facility] Comment on above: Order Comment: Speci men Type: BLOOD SPECIMENOrdering Facility: [facility] Address: [address] [place] [address] Result Comment: Cons istent with Female Performed By: #### M AT21 ####[facility] LABCLIA [id number] [place] [address] Test performance information Espinoza (Unsp spec) Comment [facility] Comment on above: Order Comment: Speci men Type: BLOOD SPECIMENOrdering Facility: [facility] Address: [address] [place] [address] Result Comment: The performance characteristics of the MaterniT(R) 21 PLUS laboratory-developed test (LDT) have been determined in a clinical validation study with women at increased risk for chromosomal aneuploidy.[1-4] Performed By: #### M AT21 ####[facility] LABCLIA [id number] [place] [address] Trisomy 13 risk Dosage of chromosome-specific cfDNA Ql (cfDNA) [Interp] Negative [facility] Comment on above: Order Comment: Speci men Type: BLOOD SPECIMENOrdering Facility: [facility] Address: [address] [place] [address] Performed By: #### M AT21 ####[facility] LABCLIA [id number] [place] [address] Trisomy 18 risk Dosage of chromosome-specific cfDNA Ql (Plasma cell-free+WBC DNA) [Interp] Negative [facility] Comment on above: Order Comment: Cally rae Type: BLOOD SPECIMENOrdering Facility: [facility] Address: [address] [place] [address] Performed By: #### M AT21 ####[facility] LABCLIA [id number] [place] [address] CBC W Auto Differential pane l (Bld)on 10-05-2024 Basophils (Bld) [#/Vol] 0.04 10*3/uL Normal <0.11 [facility] Comment on above: Order Comment: Cally rae Type: BLOOD SPECIMEN Ordering Facility: [facility] Address: [address] [place] [address] Performed By: #### 5 7021-8 #### [facility] CLIA [id number] [address] [place], [place] [address] [address] [place] Basophils/100 WBC (Bld) 0.5 % Normal [facility] Comment on above: Order Comment: Cally rae Type: BLOOD SPECIMEN Ordering Facility: [facility] Address: [address] [place] [address] Performed By: #### 5 7021-8 #### [facility] CLIA [id number] [address] [place], [place] [address] [place] Differential cell count method Nom (Bld) Auto Normal [facility] Comment on above: Order Comment: Speci men Type: BLOOD SPECIMEN Ordering Facility: [facility] Address: [address] [place] [address] Performed By: #### 5 7021-8 #### [facility] CLIA [id number] [address] [place] [address] [place] Eosinophils (Bld) [#/Vol] 0.34 10*3/uL Normal <0.46 [facility] Comment on above: Order Comment: Speci men Type: BLOOD SPECIMEN Ordering Facility: [facility] Address: [address] [place] [address] Performed By: #### 5 7021-8 #### [facility] CLIA [id number] [address] [place] [address] [place] Eosinophils/100 WBC (Bld) 4.1 % Normal [facility] Comment on above: Order Comment: Speci men Type: BLOOD SPECIMEN Ordering Facility: [facility] Address: [address] [place] [address] Performed By: #### 5 7021-8 #### [facility] CLIA [id number] [address] [place] [address] [place] Erythrocyte distribution width (RBC) [Ratio] 13.6 % Normal 11.5-15.0 [facility] Comment on above: Order Comment: Speci men Type: BLOOD SPECIMEN Ordering Facility: [facility] Address: [address] [place] [address] Performed By: #### 5 7021-8 #### [facility] CLIA [id number] [address] [place] [address] [place] Hematocrit (Bld) [Volume fraction] 35.6 % Low 36.0-46.0 [facility] Comment on above: Order Comment: Speci men Type: BLOOD SPECIMEN Ordering Facility: [facility] Address: [address] [place] [address] Performed By: #### 5 7021-8 #### [facility] CLIA [id number] [address] [place] [address] [place] Hemoglobin (Bld) [Mass/Vol] 12.0 g/dL Normal 11.5-15.5 [facility] Comment on above: Order Comment: Speci men Type: BLOOD SPECIMEN Ordering Facility: [facility] Address: [address] [place] [address] Performed By: #### 5 7021-8 #### [facility] CLIA [id number] [address] [place] [address] [place] Immature granulocytes (Bld) [#/Vol] 10*3/uL Normal <0.10 [facility] Comment on above: Order Comment: Speci men Type: BLOOD SPECIMEN Ordering Facility: [facility] Address: [address] [place] [address] Performed By: #### 5 7021-8 #### [facility] CLIA [id number] [address] [place] [address] [place] Immature granulocytes/100 WBC (Bld) 0.2 % Normal [facility] Comment on above: Order Comment: Speci men Type: BLOOD SPECIMEN Ordering Facility: [facility] Address: [address] [place] [address] Performed By: #### 5 7021-8 #### [facility] CLIA [id number] [address] [place] [address] [place] Lymphocytes (Bld) [#/Vol] 2.38 10*3/uL Normal 1.00-4.00 [facility] Comment on above: Order Comment: Speci men Type: BLOOD SPECIMEN Ordering Facility: [facility] Address: [address] [place] [address] Performed By: #### 5 7021-8 #### [facility] CLIA [id number] [address] [place] [address] [place] Lymphocytes/100 WBC (Bld) 28.4 % Normal [facility] Comment on above: Order Comment: Speci men Type: BLOOD SPECIMEN Ordering Facility: [facility] Address: [address] [place] [address] Performed By: #### 5 7021-8 #### [facility] CLIA [id number] [address] [place] [address] [place] MCH (RBC) [Entitic mass] 29.3 pg Normal 26.0-34.0 [facility] Comment on above: Order Comment: Speci men Type: BLOOD SPECIMEN Ordering Facility: [facility] Address: [address] [place] [address] Performed By: #### 5 7021-8 #### [facility] CLIA [id number] [address] [place] [address] [place] MCHC (RBC) [Mass/Vol] 33.7 g/dL Normal 30.5-36.0 [facility] Comment on above: Order Comment: Speci men Type: BLOOD SPECIMEN Ordering Facility: [facility] Address: [address] [place] [address] Performed By: #### 5 7021-8 #### [facility] CLIA [id number] [address] [place] [address] OF [facility] MCV (RBC) [Entitic vol] 86.8 fL Normal 80.0-100.0 [facility] Comment on above: Order Comment: Speci men Type: BLOOD SPECIMEN Ordering Facility: [facility] Address: [address] [place] [address] Performed By: #### 5 7021-8 #### [facility] CLIA [id number] [address] [place] [address] [place] Monocytes (Bld) [#/Vol] 0.52 10*3/uL Normal <0.87 [facility] Comment on above: Order Comment: Speci men Type: BLOOD SPECIMEN Ordering Facility: [facility] Address: [address] [place] [address] Performed By: #### 5 7021-8 #### [facility] CLIA [id number] [address] [place] [address] OF [place] F Monocytes/100 WBC (Bld) 6.2 % Normal [facility] Comment on above: Order Comment: Speci men Type: BLOOD SPECIMEN Ordering Facility: [facility] Address: [address] [place] [address] Performed By: #### 5 7021-8 #### [facility] CLIA [id number] [address] [place] [address] [place] Neutrophils (Bld) [#/Vol] 5.09 10*3/uL Normal 1.45-7.50 [facility] Comment on above: Order Comment: Speci men Type: BLOOD SPECIMEN Ordering Facility: [facility] Address: [address] [place] [address] Performed By: #### 5 7021-8 #### [facility] CLIA [id number] [address] [place] [address] [place] Neutrophils/100 WBC (Bld) 60.6 % Normal [facility] Comment on above: Order Comment: Speci men Type: BLOOD SPECIMEN Ordering Facility: [facility] Address: [address] [place] [address] Performed By: #### 5 7021-8 #### [facility] CLIA [id number] [address] [place] [address] [place] Nucleated RBC (Bld) [#/Vol] 10*3/uL Normal <0.01 [facility] Comment on above: Order Comment: Speci men Type: BLOOD SPECIMEN Ordering Facility: [facility] Address: [address] [place] [address] Performed By: #### 5 7021-8 #### [facility] CLIA [id number] [address] [place] [address] [place] Nucleated RBC/100 WBC (Bld) [Ratio] 0.0 /100 WBC Normal [facility] Comment on above: Order Comment: Speci men Type: BLOOD SPECIMEN Ordering Facility: [facility] Address: [address] [place] [address] Performed By: #### 5 7021-8 #### [facility] CLIA [id number] [address] [place] [address] [place] Platelet mean volume (Bld) [Entitic vol] 10.5 fL Normal 9.0-12.7 [facility] Comment on above: Order Comment: Speci men Type: BLOOD SPECIMEN Ordering Facility: [facility] Address: [address] [place] [address] Performed By: #### 5 7021-8 #### [facility] CLIA [id number] [address] [place] [address] [place] Platelets (Bld) [#/Vol] 261 10*3/uL Normal 150-400 [facility] Comment on above: Order Comment: Speci men Type: BLOOD SPECIMEN Ordering Facility: [facility] Address: [address] [place] [address] Performed By: #### 5 7021-8 #### [facility] CLIA [id number] [address] [place] [address] [place] RBC (Bld) [#/Vol] 4.10 10*6/uL Normal 3.90-5.20 [facility] Comment on above: Order Comment: Speci men Type: BLOOD SPECIMEN Ordering Facility: [facility] Address: [address] [place] [address] Performed By: #### 5 7021-8 #### [facility] CLIA [id number] [address] [place] [address] [place] WBC (Bld) [#/Vol] 8.39 10*3/uL Normal 3.70-11.00 [facility] Comment on above: Order Comment: Speci men Type: BLOOD SPECIMEN Ordering Facility: [facility] Address: [address] [place] [address] Performed By: #### 5 7021-8 #### [facility] CLIA [id number] [address] [place] [address] [facility] OF [place] F HBV surface Ag Ser Qlon - HBV surface Ag Ql (S) Non-Reactive Normal Equivo nirmal, Nonreactive [facility] Comment on above: Order Comment: Speci men Type: BLOOD SPECIMEN Ordering Facility: [facility] Address: [address] [place] [address] Result Comment: Resu lts were obtained with the [employer] IM IgM assay. Values obtained with different manufactures' assay methods may not be used interchangeably. Performed By: #### 1 6128-1, 5195-3, 45775-1, JANNETH #### [facility] CLIA [id number] [address] [place] [address] [place] HCV Ab Ser Qlon 10-05-2024 HCV Ab Ql (S) Non-Reactive Normal Nonreactive [facility] Comment on above: Order Comment: Speci men Type: BLOOD SPECIMEN Ordering Facility: [facility] Address: [address] [place] [address] Result Comment: Scre ening test negative Nonreactive HCV Antibody Screen is consistent with no HCV infection, unless recent infection is suspected or other evidence exists to indicate HCV infection. Results were obtained with the [employer] IM IgG assay. Values obtained with different manufactures' assay methods may not be used interchangeably. Performed By: #### 1 6128-1, 5195-3, 64749-7, JANNETH #### [facility] CLIA [id number] [address] [place] [address] [place] HIV 1+2 Ab IA Qlon HIV 1+2 Ab+HIV1 p24 Ag IA Ql Non-Reactive Normal Nonreactive [facility] Comment on above: Order Comment: Speci men Type: BLOOD SPECIMEN Ordering Facility: [facility] Address: [address] [place] [address] Result Comment: Nonr eactive: Less than 1.0 index value Specimens with an index value <1.0 are considered nonreactive for antibodies to HIV-1, HIV-2, and p24 antigen by the [employer] IM CHIV assay. Performed By: #### 1 6128-1, 5195-3, 63613-9, JANNETH #### [facility] CLIA [id number] [address] [place] [address] [place] HbA1c (Bld)on 10-05-2024 Average glucose Estimated from glycated hemoglobin (Bld) [Mass/Vol] 94 mg/dL Normal [facility] Comment on above: Order Comment: Speci men Type: BLOOD SPECIMEN Ordering Facility: [facility] Address: [address] [place] [address] Result Comment: eAG: (Estimated average glucose) is a calculated value from HgbA1c and is labor representative of the average blood glucose level in the last 2-3 month period. Performed By: #### 5 5454-3 #### [facility] CLIA [id number] [address] [place] [address] [place] HbA1c (Bld) [Mass fraction] 4.9 % Normal 4.3-5.6 [facility] Comment on above: Order Comment: Cally rae Type: BLOOD SPECIMEN Ordering Facility: [facility] Address: [address] [place] [address] Result Comment: Amer [place] Diabetes Association guidelines indicate that patients with HgbA1c in the range 5.7-6.4% are at increased risk for development of diabetes, and intervention by lifestyle modification may be beneficial. HgbA1c greater or equal to 6.5% is considered diagnostic of diabetes. Performed By: #### 5 5454-3 #### [facility] CLIA [id number] [address] [place] [address] [place] RUBELLA IGG ANTIBODYon 10-05 RUBELLA IGG AB, QUAL Positive Normal Positive [facility] Comment on above: Order Comment: Cally rae Type: BLOOD SPECIMEN Ordering Facility: [facility] Address: [address] [place] [address] Result Comment: <5 I U/ML Negative for IgG antibodies to Rubella >= 5-9.9 IU/ML Equivocal for IgG antibodies to Rubella Virus. Obtain new specimen and test using Rubella IgG assay. >=10 IU/ML Positive for IgG antibodies to Rubella Performed By: #### 1 6128-1, 5195-3, 59895-7, RUBIGG #### [facility] CLIA [id number] [place] [address] [place] Reagin and Treponema pallidu m IgG and IgM [Interp]on 10-05-2024 T. pallidum IgG+IgM IA Ql (S) Non-Reactive Normal Nonreactive [facility] Comment on above: Order Comment: Speci men Type: BLOOD SPECIMEN Ordering Facility: [facility] Address: [address] [place] [address] Performed By: #### 7 3752-8 #### [facility] CLIA [id number] [address] [place] [address] [place] Reagin+T pallidum IgG+IgM Se rPl-Impon 10-05-2024 Reagin and Treponema pallidum IgG and IgM [Interp] Cannot exclude recent Treponemal infection if specimen collected within 7-10 days after appearance of suspect lesions or 2-3 weeks after an exposure. Clinical correlation is required. [facility] Comment on above: Order Comment: Speci men Type: BLOOD SPECIMEN Ordering Facility: [facility] Address: [address] [place] [address] Performed By: #### 7 3752-8 #### [facility] CLIA [id number] [address] [place] [address] [place] TYPE + SCREEN PRENATALon ABO O [facility] Comment on above: Order Comment: Speci men Type: BLOOD SPECIMEN Ordering Facility: [facility] Address: [address] [place] [address] Performed By: #### T SPN #### [facility] CLIA [id number] [address] [place] [address] [place] Rh Nom (Bld) Positive [facility] Comment on above: Order Comment: Speci men Type: BLOOD SPECIMEN Ordering Facility: [facility] Address: [address] [place] [address] Performed By: #### T SPN #### [facility] CLIA [id number] [address] [place], [place] [id number] [place] TYPE AND SCREEN EXPIRATION 10/08/2024 23:59 [facility] Comment on above: Order Comment: Speci men Type: BLOOD SPECIMEN Ordering Facility: [facility] Address: [address], [place] [address] Performed By: #### T Lashonda #### [facility] [id number] [address] [place] [address] [facility] Alecia 09-16-2024 CNPN Telephone (PSWSTR) -------- MARZENA PICKERING ([id number]) 1990 [address] [facility] Date Time Provider Department 09/16/24 SAMARIA HAJI PSWSTR During your visit today, we recorded the following information about you: Marlena Olsen LPN 09/16/2024 1:34 PM Signed Call placed to patient (x2) with message left with today's VV information for today. Hopefully patient signs on for visit. SOCRATES Vasquez Nishi J, FRUIT COORDINATOR.COMMERCIAL GREEN BUILDING ARCHITECT 09/16/2024 4:32 PM Signed Patient had to [...] Encounter Status:Closed by MARLENA OLSEN on 09/16/24 [facility] Alecia 09-15-2024 [facility] Telephone (PSWSTR) -------- MARZENA PICKERING ([id number]) 1990 [address] [facility] Date Time Provider Department 09/15/24 SAMARIA HAJI PSWSTR During your visit today, we recorded the following information about you: Marlena Olsen LPN 09/15/2024 11:12 AM Signed Call placed to patient, offering VV tomorrow 09/16/24 @ 4:30 pm to discuss medication side effects with Provider. Message left for patient to confirm visit via [email or web address] or by calling [phone]. SOCRATES Vasquez Nishi J, FRUIT COORDINATOR.COMMERCIAL GREEN BUILDING ARCHITECT 09/15/2024 11:32 AM Signed Noted. Thank you. [...] Status:Closed by MARLENA OLSEN on 09/15/24 Normal [facility] BACTERIAL CULTURE, URINEOrde red By: Robby Rey on 09-09-2024 Bacteria identified Cx Nom (U) 10,000 -<50,000 CFU/ml Normal urogenital mery [facility] BACTERIAL VAGINOSIS NAATon 0 09-09-2024 Interpretation and review of laboratory results Normal [facility] Lactobacillus crispatus+gasseri+mumtaz senii + Gardnerella vaginalis + Atopobium vaginae rRNA NIGHAT+probe Ql (Vag fld) Not detected Not detected [facility] Bacteria identified Cx Nom ( U)Ordered By: Robby Rey on 09-09-2024 [facility] C. trachomatis+N. gonorrhoea e DNA NIGHAT+probe Ql (Unsp spec)on 09-09-2024 C. trachomatis rRNA NIGHAT+probe Ql (Unsp spec) Not detected Not detected [facility] Interpretation and review of laboratory results Normal [facility] N. gonorrhoeae rRNA NIGHAT+probe Ql (Unsp spec) Not detected Not detected [facility] This FDA-approved as say has been modified to accept rectal swabs self-collected in a healthcare setting. For self-collected rectal swabs, the test was developed and its performance characteristics determined by the [facility]'s [facility] Medicine [place] ([facility]). It has not been cleared or approved by the FDA. [facility] is regulated under CLIA as qualified to perform high-complexity testing. This test is used for clinical purposes. It should not be regarded as investigational or for research. [facility] TRIXIE/TRICHOMONAS NAATon 0 09-09-2024 C. glabrata RNA NIGHAT+probe Ql (Vag fld) Not detected Not detected [facility] Trixie sp DNA NIGHAT+probe Ql (Vag fld) Not detected Not detected [facility] Comment on above: The Trixie species group target includes C. albicans, C. tropicalis, C. parapsilosis, and C. dubliniensis. Interpretation and review of laboratory results Normal [facility] T. vaginalis DNA NIGHAT+probe Ql (Unsp spec) Not detected Not detected [facility] BACTERIAL VAGINOSIS NAATon 0 09-08-2024 Lactobacillus crispatus+gasseri+mumtaz senii + Gardnerella vaginalis + Atopobium vaginae rRNA NIGHAT+probe Ql (Vag fld) Not detected Normal Not detected [facility] Comment on above: Order Comment: Speci men Type: SWABOrdering Facility: [facility] Address: [address] [place] [address] Performed By: #### B DANY, 30033-3 ####[facility] [id number] [place] [address] [place] Bacteria Ur Culton Bacteria identified Cx Nom (U) ORGANISM ID: 1 10,000 -<50,000 CFU/ml Normal urogenital mery Normal [facility] Comment on above: Performed By: #### 6 30-4 ####[facility] [id number] [place] [address] [place] C. trachomatis+N. gonorrhoea e DNA NIGHAT+probe Ql (Unsp spec)on 09-08-2024 C. trachomatis rRNA NIGHAT+probe Ql (Unsp spec) Not detected Normal Not detected [facility] Comment on above: Order Comment: Speci men Type: SWABOrdering Facility: [facility] Address: [address] [place] [address] Performed By: #### B VAMP, 56777-0 ####[facility] [id number] [place] [address] [place] N. gonorrhoeae rRNA NIGHAT+probe Ql (Unsp spec) Not detected Normal Not detected [facility] Comment on above: Order Comment: Speci men Type: SWABOrdering Facility: [facility] Address: [address] [place] [address] Performed By: #### B VAMP, 71249-9 ####[facility] [id number] [place] [address] [place] TRIXIE/TRICHOMONAS NAATon 0 09-08-2024 C. glabrata RNA NIGHAT+probe Ql (Vag fld) Not detected Normal Not detected [facility] Comment on above: Order Comment: Speci men Type: SWABOrdering Facility: [facility] Address: [address] [place] [address] Performed By: #### C VTV ####[facility] [id number] [place] [address] [place] Trixie sp DNA NIGHAT+probe Ql (Vag fld) Not detected Normal Not detected [facility] Comment on above: Order Comment: Speci men Type: SWABOrdering Facility: [facility] Address: [address] [place] [address] Result Comment: The Trixie species group target includes C. albicans, C. tropicalis, C. parapsilosis, and C. dubliniensis. Performed By: #### C VTV ####[facility] [id number] [place] [address] [place] T. vaginalis DNA NIGHAT+probe Ql (Unsp spec) Not detected Normal Not detected [facility] Comment on above: Order Comment: Speci men Type: SWABOrdering Facility: [facility] Address: [facility] [place] [address] Performed By: #### C VTV ####[facility] [id number] [place] [address] [place] POC WATCH CASER ULTRASOUNDon 09-08-19 Indication Viability; confirm cardiac activity [...] Read By: Marlee Almanza CNM MATERNAL MEDICINE [facility] Radiology Study observation (narrative) [facility] ED PROV NOTEon 09-02-2024 ED PROV NOTE HNO ID: [id number] Author: MARGUERITE GARCIA APRN.COMMERCIAL GREEN BUILDING ARCHITECT Service: Emergency Medicine Author Type: Nurse Practitioner [...] weeks , . She follows with a collar runner and was told after 6 weeks gestation, [...] (more content not included)... Normal [facility] B-HCG SerPl-[place]Cn[place] 5 [place] [address].0 m[IU]/mL High <5.0 [facility] Comment on above: Order Comment: Speci men Type: BLOOD SPECIMEN Ordering Facility: [facility] Address: [address] [place] [address] [place] [address] Result Comment: [facility] TITATIVE HCG NORMAL RANGES Weeks of Gestation (Weeks Since LMP) 3 Weeks (5.8-71.2 mIU/mL) 4 Weeks (9.5-750 mIU/mL) 5 Weeks (217-7138 mIU/mL) 6 Weeks (158-22729 mIU/mL) 7 Weeks (3697-832283 mIU/mL) 8 Weeks (87992-371412 mIU/mL) 9 Weeks (47907-331082 mIU/mL) 10 Weeks (02749-819274 mIU/mL) 12 Weeks (22717-845881 mIU/mL) Referenced to 4th IS of [facility] Performed By: #### 2 1198-7 #### [facility] CLIA [id number] [place] CBC W Auto Differential pane l (Bld)on 09-01-2024 Basophils (Bld) [#/Vol] 10*3/uL Normal <0.11 [facility] Comment on above: Order Comment: Speci men Type: BLOOD SPECIMENOrdering Facility: [facility] Address: [address] [place] [address] Performed By: #### 5 7021-8 ####[facility] [id number] [address] STATES [facility] Basophils/100 WBC (Bld) 0.2 % Normal [facility] Comment on above: Order Comment: Speci men Type: BLOOD SPECIMENOrdering Facility: [facility] Address: [address] [place] [address] Performed By: #### 5 7021-8 ####[facility] [id number] [address] [place] Differential cell count method Nom (Bld) Auto Normal [facility] Comment on above: Order Comment: Speci men Type: BLOOD SPECIMENOrdering Facility: [facility] Address: [address] [place] [address] Performed By: #### 5 7021-8 ####[facility] [id number] [address] [place] Eosinophils (Bld) [#/Vol] 0.06 10*3/uL Normal <0.46 [facility] Comment on above: Order Comment: Speci men Type: BLOOD SPECIMENOrdering Facility: [facility] Address: [address] [place] [address] Performed By: #### 5 7021-8 ####[facility] [id number] [place] [address] [place] Eosinophils/100 WBC (Bld) 1.3 % Normal [facility] Comment on above: Order Comment: Speci men Type: BLOOD SPECIMENOrdering Facility: [facility] Address: [address] [place] [address] Performed By: #### 5 7021-8 ####[facility]IA [id number] [address] STATES [facility] Erythrocyte distribution width (RBC) [Ratio] 11.9 % Normal 11.5-15.0 [facility] Comment on above: Order Comment: Speci men Type: BLOOD SPECIMENOrdering Facility: [facility] Address: [address] [place] [address] Performed By: #### 5 7021-8 ####[facility]IA [id number] [address] [place] [facility] Hematocrit (Bld) [Volume fraction] 38.2 % Normal 36.0-46.0 [facility] Comment on above: Order Comment: Speci men Type: BLOOD SPECIMENOrdering Facility: [facility] Address: [address] [place] [address] Performed By: #### 5 7021-8 ####[facility]IA [id number] [place] [address] [place] Hemoglobin (Bld) [Mass/Vol] 12.8 g/dL Normal 11.5-15.5 [facility] Comment on above: Order Comment: Speci men Type: BLOOD SPECIMENOrdering Facility: [facility] Address: [address] [place] [address] Performed By: #### 5 7021-8 ####[facility] [id number] [place] [address] [place] Immature granulocytes (Bld) [#/Vol] 10*3/uL Normal <0.10 [facility] Comment on above: Order Comment: Speci men Type: BLOOD SPECIMENOrdering Facility: [facility] Address: [address] [place] [address] Performed By: #### 5 7021-8 ####[facility]IA [id number] [address] [place] [facility] Immature granulocytes/100 WBC (Bld) 0.2 % Normal [facility] Comment on above: Order Comment: Speci men Type: BLOOD SPECIMENOrdering Facility: [facility] Address: [address] [place] [address] Performed By: #### 5 7021-8 ####[facility] [id number] [place] [address] [place] Lymphocytes (Bld) [#/Vol] 0.98 10*3/uL Low 1.00-4.00 [facility] Comment on above: Order Comment: Speci men Type: BLOOD SPECIMENOrdering Facility: [facility] Address: [address] [place] [address] Performed By: #### 5 7021-8 ####[facility] LABIA [id number] [address] Lymphocytes/100 WBC (Bld) 21.7 % Normal [facility] Comment on above: Order Comment: Speci men Type: BLOOD SPECIMENOrdering Facility: [facility] Address: [address] [place] [address] Performed By: #### 5 7021-8 ####[facility] [id number] [place] [address] [place] MCH (RBC) [Entitic mass] 28.8 pg Normal 26.0-34.0 [facility] Comment on above: Order Comment: Speci men Type: BLOOD SPECIMENOrdering Facility: [facility] Address: [address] [place] [address] Performed By: #### 5 7021-8 ####[facility] LABIA [id number] [place] [address] [place] [facility] MCHC (RBC) [Mass/Vol] 33.5 g/dL Normal 30.5-36.0 [facility] Comment on above: Order Comment: Speci men Type: BLOOD SPECIMENOrdering Facility: [facility] Address: [address] [place] [address] Performed By: #### 5 7021-8 ####[facility] [id number] [place] [address] [facility] MCV (RBC) [Entitic vol] 85.8 fL Normal 80.0-100.0 [facility] Comment on above: Order Comment: Speci men Type: BLOOD SPECIMENOrdering Facility: [facility] Address: [address] [place] [address] Performed By: #### 5 7021-8 ####[facility] [id number] [address] [place] Monocytes (Bld) [#/Vol] 0.46 10*3/uL Normal <0.87 [facility] Comment on above: Order Comment: Speci men Type: BLOOD SPECIMENOrdering Facility: [facility] Address: [address] [place] [address] Performed By: #### 5 7021-8 ####[facility] [id number] [address] Monocytes/100 WBC (Bld) 10.2 % Normal [facility] Comment on above: Order Comment: Speci men Type: BLOOD SPECIMENOrdering Facility: [facility] Address: [address] [place] [address] Performed By: #### 5 7021-8 ####[facility] [id number] [place] [address] [place] Neutrophils (Bld) [#/Vol] 2.99 10*3/uL Normal 1.45-7.50 [facility] Comment on above: Order Comment: Speci men Type: BLOOD SPECIMENOrdering Facility: [facility] Address: [address] [place] [address] Performed By: #### 5 7021-8 ####[facility] LABIA [id number] [address] STATES [facility] Neutrophils/100 WBC (Bld) 66.4 % Normal [facility] Comment on above: Order Comment: Speci men Type: BLOOD SPECIMENOrdering Facility: [facility] Address: [address] [place] [address] Performed By: #### 5 7021-8 ####[facility] LABIA [id number] [place] [address] [place] Nucleated RBC (Bld) [#/Vol] 10*3/uL Normal <0.01 [facility] Comment on above: Order Comment: Speci men Type: BLOOD SPECIMENOrdering Facility: [facility] Address: [address] [place] [address] Performed By: #### 5 7021-8 ####[facility] LABIA [id number] [place] [address] [place] Nucleated RBC/100 WBC (Bld) [Ratio] 0.0 /[address] [facility] Comment on above: Order Comment: Speci men Type: BLOOD SPECIMENOrdering Facility: [facility] Address: [address] [place] [address] Performed By: #### 5 7021-8 ####[facility] LABIA [id number] [place] [address] [place] Platelet mean volume (Bld) [Entitic vol] 10.0 fL Normal 9.0-12.7 [facility] Comment on above: Order Comment: Speci men Type: BLOOD SPECIMENOrdering Facility: [facility] Address: [address] [place] [address] Performed By: #### 5 7021-8 ####[facility] LABIA [id number] [place] [address] [place] Platelets (Bld) [#/Vol] 236 10*3/uL Normal 150-400 [facility] Comment on above: Order Comment: Speci men Type: BLOOD SPECIMENOrdering Facility: [facility] Address: [address] [place] [address] Performed By: #### 5 7021-8 ####[facility] LABIA [id number] [place] [address] [place] [facility] RBC (Bld) [#/Vol] 4.45 10*6/uL Normal 3.90-5.20 [facility] Comment on above: Order Comment: Speci men Type: BLOOD SPECIMENOrdering Facility: [facility] Address: [address] [place] [address] Performed By: #### 5 7021-8 ####[facility] [id number] [place] [address] [facility] WBC (Bld) [#/Vol] 4.51 10*3/uL Normal 3.70-11.00 [facility] Comment on above: Order Comment: Speci men Type: BLOOD SPECIMENOrdering Facility: [facility] Address: [address] [place] [address] Performed By: #### 5 7021-8 ####[facility] [id number] [place] [address] [facility] CNOVon 09-01-2024 CNOV Office Visit (UCUPNO ) -------- MARZENA PICKERING ([id number]) 1990 [address] [facility] Date Time Provider Department 09/01/24 5:20 PM ARIANNA BYNUM During your visit today, we recorded the following information about you: Temperature Pulse Respiration Blood pressure 99.1 degrees 74/minute 16/minute 109/71 Weight Last Period 61 kg 07/16/24 Arianna Bynum APRN.COMMER[employer]EN BUILDING ARCHITECT 09/01/2024 6:18 PM Signed Recommend ER for [...] her children had influenza. Has called her collar runner in [place] on 08/22 and had no vomiting then. [...] or erythematous. Nose: Nose normal. Mouth/Throat: Lips: [place]. No lesions. Mouth: Mucous membranes are moist. Pharynx: Oropharynx is clear. Uvula midline. Posterior orop (more content not included)... Normal [facility] Comprehensive metabolic 2000 panelon 09-01-2024 Albumin [Mass/Vol] 4.5 g/dL Normal 3.9-4.9 [facility] Comment on above: Order Comment: Speci men Type: BLOOD SPECIMEN Ordering Facility: [facility] Address: [address] [place] [address] Performed By: #### 2 4323-8 #### [facility] CLIA [id number] [address] [place] [address] [place] ALP [Catalytic activity/Vol] 72 U/L Normal 34-123 [facility] Comment on above: Order Comment: Speci men Type: BLOOD SPECIMEN Ordering Facility: [facility] Address: [address] [place] [address] Performed By: #### 2 4323-8 #### [facility] CLIA [id number] [address] [place] [address] [place] ALT [Catalytic activity/Vol] 14 U/L Normal 7-38 [facility] Comment on above: Order Comment: Speci men Type: BLOOD SPECIMEN Ordering Facility: [facility] Address: [address] [place] [address] Performed By: #### 2 4323-8 #### [facility] CLIA [id number] [address] [place] [address] [place] Anion gap [Moles/Vol] 12 mmol/L Normal 8-15 [facility] Comment on above: Order Comment: Speci men Type: BLOOD SPECIMEN Ordering Facility: [facility] Address: [address] [place] [address] Performed By: #### 2 4323-8 #### [facility] CLIA [id number] [address] [place] [address] [place] AST [Catalytic activity/Vol] 22 U/L Normal 13-35 [facility] Comment on above: Order Comment: Speci men Type: BLOOD SPECIMEN Ordering Facility: [facility] Address: [address] [place] [address] Performed By: #### 2 4323-8 #### [facility] CLIA [id number] [address] [place] [address] [place] Bilirubin [Mass/Vol] 0.3 mg/dL Normal 0.2-1.3 [facility] Comment on above: Order Comment: Speci men Type: BLOOD SPECIMEN Ordering Facility: [facility] Address: [address] [place] [address] Performed By: #### 2 4323-8 #### [facility] CLIA [id number] [address] [place] [address] [place] Calcium [Mass/Vol] 9.3 mg/dL Normal 8.5-10.2 [facility] Comment on above: Order Comment: Speci men Type: BLOOD SPECIMEN Ordering Facility: [facility] Address: [address] [place] [address] Performed By: #### 2 4323-8 #### [facility] CLIA [id number] [address] [place] [address] [place] Chloride [Moles/Vol] 100 mmol/L Normal 98-107 [facility] Comment on above: Order Comment: Speci men Type: BLOOD SPECIMEN Ordering Facility: [facility] Address: [address] [place] [address] Performed By: #### 2 4323-8 #### [facility] CLIA [id number] [address] [place] [address] [place] CO2 [Moles/Vol] 24 mmol/L Normal 22-30 [facility] Comment on above: Order Comment: Speci men Type: BLOOD SPECIMEN Ordering Facility: [facility] Address: [address] [place] [address] Performed By: #### 2 4323-8 #### [facility] CLIA [id number] [address] [place], [place] [address] [place] Creatinine [Mass/Vol] 0.57 mg/dL Low 0.58-0.96 [facility] Comment on above: Order Comment: Cally rae Type: BLOOD SPECIMEN Ordering Facility: [facility] Address: [address] [place] [address] Performed By: #### 2 4323-8 #### [facility] CLIA [id number] [address] [place] [address] [place] Creatinine and Glomerular filtration rate.predicted panel (S/P/Bld) 124 mL/min/1.73m??? Normal >=60 [facility] Comment on above: Order Comment: Cally rae Type: BLOOD SPECIMEN Ordering Facility: [facility] Address: [address] [place] [address] Result Comment: Kimberlee mated Glomerular Filtration Rate [...] GFR. Performed By: #### 2 4323-8 #### [facility] CLIA [id number] [address] [place] [address] [place] Glucose [Mass/Vol] 92 mg/dL Normal 74-99 [facility] Comment on above: Order Comment: Cally rae Type: BLOOD SPECIMEN Ordering Facility: [facility] Address: [address] [place] [address] Result Comment: The [place] Diabetes Association (ADA) provides guidance for cutoff [...] Standards of Medical Care in Diabetes 2016, [place] [employer]. Diabetes Care. 2016.39(Suppl 1). Performed By: #### 2 4323-8 #### [facility] CLIA [id number] [address] [place] [address] [place] Potassium [Moles/Vol] 4.0 mmol/L Normal 3.7-5.1 [facility] Comment on above: Order Comment: Speci men Type: BLOOD SPECIMEN Ordering Facility: [facility] Address: [address] [place] [address] Performed By: #### 2 4323-8 #### [facility] CLIA [id number] [address] [place] [address] [place] Protein [Mass/Vol] 7.9 g/dL Normal 6.3-8.0 [facility] Comment on above: Order Comment: Speci men Type: BLOOD SPECIMEN Ordering Facility: [facility] Address: [address] [place] [address] Performed By: #### 2 4323-8 #### [facility] CLIA [id number] [address] [place] [address] [place] Sodium [Moles/Vol] 136 mmol/L Normal 136-144 [facility] Comment on above: Order Comment: Speci men Type: BLOOD SPECIMEN Ordering Facility: [facility] Address: [address] [place] [address] Performed By: #### 2 4323-8 #### [facility] CLIA [id number] [address] [place] [address] [place] Urea nitrogen [Mass/Vol] 7 mg/dL Normal 7-21 [facility] Comment on above: Order Comment: Speci men Type: BLOOD SPECIMEN Ordering Facility: [facility] Address: [address] [place] [address] Performed By: #### 2 4323-8 #### [facility] CLIA [id number] [address] [place] [address] [place] ED Triage Noteon 09-01-2024 ED Triage Note HNO ID: [id number] Author: MARGUERITE GARCIA APRN.BROOKE Service: Emergency Medicine [...] patient as a primary patient. See other physician/[employer] ARCHITECT/PA notation. SIGNATURE: Marguerite Garcia APRN.BROOKE Normal [facility] S pyo DNA Throat Ql NIGHAT+prob rylee 09-01-2024 S. pyogenes DNA NIGHAT+probe Ql (Throat) Not detected Normal Not detected [facility] Comment on above: Order Comment: Speci men Type: SWAB Ordering Facility: [facility] Address: [address] [place] [address] Performed By: #### 6 0489-2 #### 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 Rod Finisher: [facility] Transcribe Date/Time: Sep 01 2024 11:45P Dictated by : TYE GARDNER MD This examination was interpreted and the report reviewed and electronically signed by: TYE GARDNER MD on Sep 02 2024 12:27AM EST [id number] Normal [facility] Urinalysis complete panel (U )on 09-01-2024 Bacteria LM.HPF (Urine sed) [#/Area] Few Abnormal None Seen [facility] Comment on above: Order Comment: Speci men Type: URINE SPECIMEN Ordering Facility: [facility] Address: [address] [place] [address] Performed By: #### 2 4356-8 #### [facility] CLIA [id number] [address] [place] [address] [place] Bilirubin Ql (U) Negative Normal Negative [facility] Comment on above: Order Comment: Speci men Type: URINE SPECIMEN Ordering Facility: [facility] Address: [address] [place] [address] Performed By: #### 2 4356-8 #### [facility] CLIA [id number] [address] [place] [address] [place] Clarity (Unsp spec) Clear Normal Clear [facility] Comment on above: Order Comment: Speci men Type: URINE SPECIMEN Ordering Facility: [facility] Address: [address] [place] [address] Performed By: #### 2 4356-8 #### [facility] CLIA [id number] [address] [place] [address] [place] Color (U) Yellow Normal Yellow [facility] Comment on above: Order Comment: Speci men Type: URINE SPECIMEN Ordering Facility: [facility] Address: [address] [place] [address] Performed By: #### 2 4356-8 #### [facility] CLIA [id number] [address] [place] [address] [place] Epithelial cells LM.HPF (Urine sed) [#/Area] Few Normal [facility] Comment on above: Order Comment: Speci men Type: URINE SPECIMEN Ordering Facility: [facility] Address: [address] [place] [address] Performed By: #### 2 4356-8 #### [facility] CLIA [id number] [address] [place] [address] [place] Glucose Test strip (U) [Mass/Vol] Negative Normal Negative [facility] Comment on above: Order Comment: Speci men Type: URINE SPECIMEN Ordering Facility: [facility] Address: [address] [place] [address] Performed By: #### 2 4356-8 #### [facility] CLIA [id number] [address] [place] [address] [place] Hemoglobin Ql (U) Negative Normal Negative [facility] Comment on above: Order Comment: Speci men Type: URINE SPECIMEN Ordering Facility: [facility] Address: [address] [place] [address] Performed By: #### 2 4356-8 #### [facility] CLIA [id number] [address] [place] [address] [place] Ketones Ql (U) Negative Normal Negative [facility] Comment on above: Order Comment: Speci men Type: URINE SPECIMEN Ordering Facility: [facility] Address: [address] [place] [address] Performed By: #### 2 4356-8 #### [facility] CLIA [id number] [address] [place] [address] [place] Leukocyte esterase Test strip Ql (U) Negative Normal Negative [facility] Comment on above: Order Comment: Speci men Type: URINE SPECIMEN Ordering Facility: [facility] Address: [address] [place] [address] Performed By: #### 2 4356-8 #### [facility] CLIA [id number] [address] [place] [address] [place] Nitrite Ql (U) Negative Normal Negative [facility] Comment on above: Order Comment: Speci men Type: URINE SPECIMEN Ordering Facility: [facility] Address: [address] [place] [address] Performed By: #### 2 4356-8 #### [facility] CLIA [id number] [address] [place] [address] [place] pH (U) 6.5 [pH] Normal 5.0-8.0 [facility] Comment on above: Order Comment: Speci men Type: URINE SPECIMEN Ordering Facility: [facility] Address: [address] [place] [address] Performed By: #### 2 4356-8 #### [facility] CLIA [id number] [address] [place] [address] [place] Protein (U) [Mass/Vol] Negative Normal Negative [facility] Comment on above: Order Comment: Speci men Type: URINE SPECIMEN Ordering Facility: [facility] Address: [address] [place] [address] Performed By: #### 2 4356-8 #### [facility] CLIA [id number] [address] [place] [address] [place] RBC LM.HPF (Urine sed) [#/Area] 0-3 /HPF Normal 0-3 /HPF [facility] Comment on above: Order Comment: Speci men Type: URINE SPECIMEN Ordering Facility: [facility] Address: [address] [place] [address] Performed By: #### 2 4356-8 #### [facility] CLIA [id number] [address] [place] [address] [place] Specific gravity (U) [Rel density] 1.020 Normal 1.005-1.030 [facility] Comment on above: Order Comment: Speci men Type: URINE SPECIMEN Ordering Facility: [facility] Address: [address] [place] [address] Performed By: #### 2 4356-8 #### [facility] [place] [id number] [address] [place] [address] Urobilinogen Ql (U) 0.2 EU/dL Normal 0.2-1.0 EU/dL [facility] Comment on above: Order Comment: Speci men Type: URINE SPECIMEN Ordering Facility: [facility] Address: [address] [place] [address] Performed By: #### 2 4356-8 #### [facility] [place] [id number] [address] [place] [address] [place] WBC LM.HPF (Urine sed) [#/Area] 0-5 /HPF Normal 0-5 /HPF [facility] Comment on above: Order Comment: Speci men Type: URINE SPECIMEN Ordering Facility: [facility] Address: [address] [place] [address] Performed By: #### 2 4356-8 #### [facility] CLIA [id number] [address] [place] [address] OF [facility] CNPSusan 08-24-2024 CNPN Telephone (OBGYWM) -------- LADANMARZENA ([id number]) 1990 [facility] Date Time Provider Department 08/24/24 MARLEE ALMANZA [...] Assessed Reason for Visit: Question (OB Question) [2152] Prescriptions as of 08/25/2024 - buPROPion SR [...] Status:Closed by YENI CRAIG on 08/25/24 Normal [facility] Alecia 08-14-2024 CNPN Telephone (PSWSTR) -------- MARZENA PICKERING ([id number]) 1990 [facility] Date Time Provider Department 08/14/24 SAMARIA [...] about the Wellbutrin? Pt is leaving for [place] today-her flight leaves at 220 pm today. States okay to leave a detailed voicemail. Samaria Haji, CRU[place].[employer] ARCHITECT 08/14/2024 11:48 AM Signed Spoke with the [...] Status:Closed by CHRISTEL THOMPSON on 08/19/24 Normal [facility] HCG QUANTITATIVEOrdered By: Kimmy Hagen on 12-19-2023 HCG.beta subunit Qn NINF [facility] Comment on above: Negative HCG.beta subunit QnOrdered B y: Kimmy Hagen on 12-19-2023 Interpretation and review of laboratory results Normal [facility] TRIXIE/TRICHOMONAS NAATon 0 01-03-2023 C. glabrata RNA NIGHAT+probe Ql (Vag fld) Negative Negative for Trixie glabrata [facility] Trixie sp DNA NIGHAT+probe Ql (Vag fld) Positive Abnormal Negative for Trixie species [facility] T. vaginalis DNA NIGHAT+probe Ql (Unsp spec) Negative Negative for Trichomonas vaginalis by amplification [facility] Bacteria identified Cx Nom ( Throat)on 12-20-2022 Culture Result XXX [facility] RAPID STREP TEST B/Oon 12-17 Quality Check Yes [facility] S. pyogenes Ag IA Ql (Unsp spec) Negative neg - pos [facility] THROAT CULTUREon 12-17-2022 Throat culture CULTURE, THROAT No Streptococcus pyogenes (Group A streptococcus) isolated. SOURCE: THROAT SWAB Test Performed By: [facility] [address] [place] [address] Coil Taper: Kamlesh Herrera III, M.D. See Below [facility] .GFRon 05-15-2022 GFR Non- 88 ml/min/1.73sqm Normal [facility] ([place]) Comment on above: Result Comment: GFR Population [...] #### R UBEO, HBSAB, VARIS, RUBIS #### [place] [address] GFR 107 ml/min/1.73sqm Normal [facility] ([place]) Comment on above: Result Comment: GFR Population [...] #### R UBEO, HBSAB, VARIS, RUBIS #### [address] [address] CMPon 05-15-2022 Albumin Level 4.4 G/dL Normal 3.5-5.0 [facility] ([place]) Comment on above: Performed By: #### R UBEO, HBSAB, VARIS, RUBIS #### [address] [address] Albumin/Globulin [Mass ratio] 1.4 {ratio} Normal 1.1-2.5 [facility] ([place] Comment on above: Performed By: #### R UBEO, HBSAB, VARIS, RUBIS #### [address] [address] ALP [Catalytic activity/Vol] 70 U/L Normal 40-135 [facility] ([place]) Comment on above: Performed By: #### R UBEO, HBSAB, VARIS, RUBIS #### [address] [address] ALT [Catalytic activity/Vol] 18 U/L Normal 14-59 [facility] ([place]) Comment on above: Performed By: #### R UBEO, HBSAB, VARIS, RUBIS #### [address] [address] AST [Catalytic activity/Vol] 16 U/L Normal 10-40 [facility] ([place] Comment on above: Performed By: #### R UBEO, HBSAB, VARIS, RUBIS #### [address] [address] Bili Total 0.6 mg/dL Normal 0.2-1.0 [facility] ([place] Comment on above: Result Comment: Use of this assay is not recommended for patients undergoing treatment with eltrombopag due to the potential for falsely elevated results. Performed By: #### R UBEO, HBSAB, VARIS, RUBIS #### [place] [address] BUN/Creatinine Ratio 14 ratio Normal 7-27 [facility] ([place] Comment on above: Performed By: #### R UBEO, HBSAB, VARIS, RUBIS #### [place] [address] Calcium [Mass/Vol] 9.4 mg/dL Normal 8.4-10.2 [facility] ([place]) Comment on above: Performed By: #### R UBEO, HBSAB, VARIS, RUBIS #### [place] [address] Chloride [Moles/Vol] 102 mmol/L Normal 98-107 [facility] ([place] Comment on above: Performed By: #### R UBEO, HBSAB, VARIS, RUBIS #### [place] [id number] CO2 [Moles/Vol] 26 mmol/L Normal 22-29 [facility] ([place] Comment on above: Performed By: #### R UBEO, HBSAB, VARIS, RUBIS #### [place] [id number] Creatinine [Mass/Vol] 0.77 mg/dL Normal 0.55-1.02 [facility] ([place]) Comment on above: Performed By: #### R UBEO, HBSAB, VARIS, RUBIS #### [facility] [address] [place], [place] [address] Electrolyte Balance 12.0 mEq/L Normal 4.0-15.0 [facility] Comment on above: Performed By: #### STANLEY RIBERA VARISACACIA #### [address] [address] Globulin 3.2 G/dL Normal [facility] ([place] Comment on above: Performed By: #### STANLEY RIBERA VARIS RUBFRANK #### [address] [address] Glucose [Mass/Vol] 81 mg/dL Normal 70-105 [facility] ([place]) Comment on above: Performed By: #### STANLEY RIBERA VARISACACIA #### [address] [address] Potassium [Moles/Vol] 4.1 mmol/L Normal 3.5-5.1 [facility] ([place]) Comment on above: Performed By: #### Jean Carlos ARAIZA HBSCHAN PUENTES RUBFRANK #### [address] [address] Sodium [Moles/Vol] 140 mmol/L Normal 136-145 [facility] ([place]) Comment on above: Performed By: #### Jean Carlos ARAIZA HBSAB VARIS, RUBFRANK #### [address] [address] Total Protein 7.6 G/dL Normal 6.4-8.2 [facility] ([place]) Comment on above: Performed By: #### Jean Carlos ARAIZA HBS, VARIS, RUBFRANK #### [address] [address] Urea nitrogen [Mass/Vol] 11 mg/dL Normal 7-18 [facility] ([place] Comment on above: Performed By: #### Jean Carlos ARAIZA HBSAB, VARIS, RUBIS #### [address] [address] LIPIDon 05-15-2022 Cholesterol [Mass/Vol] 162 mg/dL Normal 0-200 [facility] ([place]) Comment on above: Result Comment: Chol esterol Reference Interval: Less than 200 Desirable 200-239 Borderline high risk 240 and above High risk Performed By: #### L IPID, CMP, GFR #### [place] [address] [place], [place] [address] Cholesterol in HDL [Mass/Vol] 74 mg/dL High 40-60 [facility] ([place] Comment on above: Performed By: #### L IPID, CMP, GFR #### [place] [address] [place], [place] [address] Cholesterol in LDL [Mass/Vol] 78 mg/dL Normal 0-130 [facility] ([place] Comment on above: Performed By: #### L IPID, CMP, GFR #### [place] [address] [place], [place] [address] Triglyceride [Mass/Vol] 49 mg/dL Normal 0-150 [facility] ([place] Comment on above: Result Comment: Trig lyceride Reference Interval: Less than 150 Normal 150-199 Borderline high risk 200-499 High risk 500 or higher Very high risk Performed By: #### L IPID, CMP, GFR #### [facility] [address] [place], [place] [address] Absolute lymphocyte counton 11-16-2021 Lymphocytes Auto (Unsp spec) [#/Vol] 2.29 10*3/uL 0.83-4.51 [facility] Work Phone: Basophil percentageon 2021 Basophils/100 WBC (Bld) 0.1 % 0-1 [facility] Work Phone: Eosinophils/100 WBC (Bld) 0.5 % 0-5 [facility] Work Phone: Neutrophils (Bld) [#/Vol] 12.2 10*3/uL 2.0-7.7 [facility] Work Phone: Neutrophils/100 WBC (Bld) 78.2 % 47-70 [facility] Work Phone: WBC (Bld) [#/Vol] 15.6 10*3/uL 4.4-11.0 [facility] Work Phone: Blood erythrocytes count (nu mber/volume)on 11-16-2021 RBC (Bld) [#/Vol] 3.71 10*6/uL 4.2-5.4 [facility] Work Phone: Blood hemoglobin measurement (mass/volume)on 11-16-2021 Hemoglobin (Bld) [Mass/Vol] 11.3 g/dL 12.0-15.0 [facility] Work Phone: Blood lymphocytes/100 leukoc yteson 11-16-2021 Lymphocytes/100 WBC (Bld) 14.7 % 19-41 [facility] Work Phone: Blood monocytes/100 leukocyt eson 11-16-2021 Monocytes/100 WBC (Bld) 5.9 % 0-10 [facility] Work Phone: Blood platelet mean volumeon 11-16-2021 Platelet mean volume (Bld) [Entitic vol] 10.6 fL 6.2-12.0 [facility] Work Phone: Determination of erythrocyte mean corpuscular volume (MCV)on 11-16-2021 MCV (RBC) [Entitic vol] 89.2 fL 81-99 [facility] Work Phone: Hematocrit Auto (Bld) [Volum e fraction]on 11-16-2021 Hematocrit (Bld) [Volume fraction] 33.1 % 37-47 [facility] Work Phone: Laboratory - Hematology and Cell countson 11-16-2021 Erythrocyte distribution width (RBC) [Entitic vol] 43.8 fL 35.1-43.9 [facility] Work Phone: Erythrocyte distribution width (RBC) [Ratio] 13.4 % 11.6-14.6 [facility] Work Phone: Immature granulocytes/100 WBC (Bld) 0.600 % 0.0-0.9 [facility] Work Phone: Comment on above: IG% - Immature Granu locytes (promyelocytes, myelocytes and metamyelocytes) > 1% indicates that a LEFT SHIFT is Present. MCH (RBC) [Entitic mass] 30.5 pg 27.0-32.0 [facility] Work Phone: Nucleated RBC/100 WBC (Bld) [Ratio] 0 % 0-5 [facility] Work Phone: MCHC Auto (RBC) [Mass/Vol]on 11-16-2021 MCHC (RBC) [Mass/Vol] 34.1 g/dL 32-36 [facility] Work Phone: Platelets bldon 11-16-2021 Platelets (Bld) [#/Vol] 273 10*3/uL 150-450 [facility] Work Phone: URINE OB DIP B/Oon 2 Glucose Ql (U) Negative Neg mg/dL [facility] Protein.monoclonal (U) [Mass/Vol] Negative Neg mg/dL [facility] Culture, urineon 11-08-2021 Bacteria identified Cx Nom (U) Presumptive C albicans [facility] Work Phone: Bacteria identified Cx Nom (U) Positive [facility] Work Phone: Basophil percentageon 2021 Basophil percentage 5-10 SEEN /hpf [facility] Work Phone: Bilirubin Test strip Ql (U)o n 11-07-2021 Bilirubin Ql (U) Negative Negative [facility] Work Phone: Ketones Test strip Ql (U)on 11-07-2021 Ketones Ql (U) Negative Negative [facility] Work Phone: Mucus LM Ql (Urine sed)on Mucus Ql (Urine sed) 0 SEEN /hpf [facility] Work Phone: Nitrite Test strip Ql (U)on 11-07-2021 Nitrite Ql (U) Negative Negative [facility] Work Phone: No Panel Informationon 11-07 Vaginal Amniotic Fluid Detection Negative Negative [facility] Work Phone: Comment on above: Amniotic fluid not p resent indicates No Rupture of FetalMembranes at time of specimen collection. Protein Test strip Ql (U)on 11-07-2021 Protein Ql (U) Negative Negative [facility] Work Phone: Squamous epithelial cells de tection in urine sediment by light microscopyon 11-07-2021 Epithelial cells.squamous LM Ql (Urine sed) 5-10 SEEN /hpf [facility] Work Phone: Urine blood detectionon 10-14 RBC Ql (U) 150 /ul Negative [facility] Work Phone: RBC Ql (U) 0-5 SEEN /hpf [facility] Work Phone: Urine clarityon 11-07-2021 Clarity (U) Sl. Cloudy Clear [facility] Work Phone: Urine color determinationon 11-07-2021 Color (U) Yellow Yellow [facility] Work Phone: Urine glucose detectionon Glucose Ql (U) Normal mg/dl Normal [facility] Work Phone: Urine leukocyte esterase det ection by dipstickon 11-07-2021 Leukocyte esterase Test strip Ql (U) 500 /ul Negative [facility] Work Phone: Urine pHon 11-07-2021 pH (U) 6.5 [pH] [facility] Work Phone: Urine sediment bacteria coun t by microscopy (number/high power field)on 11-07-2021 Bacteria LM.HPF (Urine sed) [#/Area] 1 /[HPF] None Seen [facility] Work Phone: Urine specific gravity measu rementon 11-07-2021 Specific gravity (U) [Rel density] 1.010 [facility] Work Phone: Urobilinogen Auto test strip Ql (U)on 11-07-2021 Urobilinogen Ql (U) Normal mg/dl Normal [facility] Work Phone: URINE OB DIP B/Oon 2 Glucose Ql (U) Negative Neg mg/dL [facility] Protein.monoclonal (U) [Mass/Vol] Negative Neg mg/dL [facility] AMNISUREon 10-28-2021 AMNISURE Negative Normal [facility]GATIVE [facility] Comment on above: Performed By: #### L 200.6000 #### [facility] [address] [place] [address] AMNISURE ROM (UNION)on 10-28 AMINSURE Negative NEGATIVE [facility] URINALYSISon 10-28-2021 Bilirubin Ql (U) Negative Normal [facility]GATIVE [facility] Comment on above: Performed By: #### L 200.3000, L200.3190 #### [facility] [address] [place] [address]695 Color (U) YELLOW Normal YELLOW [facility] Comment on above: Performed By: #### L 200.3000, L200.3190 #### [facility] [address] [place] [address]168 Glucose Ql (U) Negative Normal NEGATIVE [facility] Comment on above: Performed By: #### L 200.3000, L200.3190 #### [facility] [address] [place] [address]31 Hemoglobin Ql (U) Negative Normal NEGATIVE [facility] Comment on above: Performed By: #### L 200.3000, L200.3190 #### [facility] [address] [place] [address]7977 Leukocyte esterase Test strip Ql (U) SMALL Normal NEGATIVE [facility] Comment on above: Performed By: #### L 200.3000, L200.3190 #### [facility] [address] [place] [address]10 Nitrite Ql (U) Negative Normal NEGATIVE [facility] Comment on above: Performed By: #### L 200.3000, L200.3190 #### [facility] [address] [place] [address] pH (U) 6.5 [pH] Normal 5.0-8.0 [facility] Comment on above: Performed By: #### L 200.3000, L200.3190 #### [facility] [address] [place] [address] 12067 Protein Ql (U) Negative Normal NEGATIVE [facility] Comment on above: Performed By: #### L 200.3000, L200.3190 #### [facility] [address] [place] [address] 10563 URINE APPEARANC CLEAR Normal CLEAR [facility] Comment on above: Performed By: #### L 200.3000, L200.3190 #### [facility] [address] [place] [address]87 URINE KETONE Negative Normal NEGATIVE [facility] Comment on above: Performed By: #### L 200.3000, L200.3190 #### [facility] [address] [place] [address]803 URINE SPECIFIC <=1.005 Normal 1.001-1.035 [facility] Comment on above: Performed By: #### L 200.3000, L200.3190 #### [facility] [address] [place] [address]142 URINE UROBILINO 0.2 EU/DL Normal 0.2-1.0 [facility] Comment on above: Performed By: #### L 200.3000, L200.3190 #### [facility] [address] [place] [address]252 URINALYSIS, DIPSTICK ONLYon 10-28-2021 Appearance (U) CLEAR CLEAR [facility] Bilirubin, Urine Negative NEGATIVE [facility] Blood, Urine Negative NEGATIVE [facility] Color (U) YELLOW YELLOW [facility] Glucose Ql (U) Negative NEGATIVE MG/DL [facility] Ketones Ql (U) Negative NEGATIVE MG/DL [facility] Leukocytes SMALL NEGATIVE [facility] Nitrites Urine Negative NEGATIVE [facility] pH (U) 6.5 [pH] 5.0 - 8.0 [facility] Protein.monoclonal (U) [Mass/Vol] Negative NEGATIVE MG/DL [facility] Specific [place], Ur <=1.005 1.001 - 1.035 [facility] Urobilinogen, Urine 0.2 EU/DL 0.2 - 1. 0 EU/DL [facility] URINE MICROSCOPon 10-28-2021 SQUAMOUS MOD Normal NEGATIVE [facility] Comment on above: Performed By: #### L 200.3000, L200.3190 #### [facility] [address] [place] [address] URINE BACTERIA 1+ Normal NEGATIVE [facility] Comment on above: Performed By: #### L 200.3000, L200.3190 #### [facility] [address] [place] [address] 59869 URINE RBC 0-2 Normal 0-2 [facility] Comment on above: Performed By: #### L 200.3000, L200.3190 #### [facility] [address] [place] [address] 60787 URINE WBC 10-20 Normal 0-5 [facility] Comment on above: Performed By: #### L 200.3000, L200.3190 #### [facility] [address] [place] [address] 16897 Urinalysis complete panel (U )on 10-28-2021 Bacteria, Urine 1+ NEGATIVE [facility] RBC, Urine 0-2 0 - 2 [facility] Squamous Epithelial Cells MOD NEGATIVE [facility] WBC, Urine 10-20 0 - 5 [facility] URINE OB DIP B/Oon Glucose Ql (U) Negative Neg mg/dL [facility] Protein.monoclonal (U) [Mass/Vol] Negative Neg mg/dL [facility] RPRon 10-24-2021 Reagin Ab RPR Ql (S) Non-Reactive Normal Non-Reactive [facility] ([place]) Comment on above: Result Comment: The RPR [...] abnormal serum globulins. Performed By: #### R ID #### [facility] [id number] [place] [address] .Auto Diffon 10-22-2021 Basophil, Absolute 0.00 10 3/mcL Normal 0.00-0.27 [facility] ([place]) Comment on above: Performed By: #### R UBEO, HBSAB, VARIS, RUBIS #### [address] [address] Basophils/100 WBC (Bld) 0.1 % Normal 0.0-2.5 [facility] ([place]) Comment on above: Performed By: #### R UBEO, HBSAB, VARIS, RUBIS #### [address] [address] Eosinophil, Absolute 0.00 10 3/mcL Normal 0.00-0.65 [facility] ([place]) Comment on above: Performed By: #### R UBEO, HBSAB, VARIS, RUBIS #### [address] [address] Eosinophils/100 WBC (Bld) 0.0 % Normal 0.0-6.0 [facility] ([place] Comment on above: Performed By: #### R UBEO, HBSAB, VARIS, RUBIS #### [address] [address] Lymphocyte, Absolute 1.40 10 3/mcL Normal 0.90-4.32 [facility] ([place] Comment on above: Performed By: #### R UBEO, HBSAB, VARIS, RUBIS #### [address] [address] Lymphocytes/100 WBC (Bld) 10.7 % Low 20.0-40.0 [facility] ([place] Comment on above: Performed By: #### R UBEO, HBSAB, VARIS, RUBIS #### [address] [address] Monocyte, Absolute 0.90 10 3/mcL Normal 0.09-1.40 [facility] ([place] Comment on above: Performed By: #### R UBEO, HBSAB, VARIS, RUBIS #### [address] [address] Monocytes/100 WBC (Bld) 6.7 % Normal 2.0-13.0 [facility] ([place] Comment on above: Performed By: #### R UBEO HBSABSANA RUBFRANK #### [address] [address] Neutrophils/100 WBC (Bld) 82.5 % High 50.0-75.0 [facility] ([place] Comment on above: Performed By: #### R UBEO, HBSAB, SANA RUBIS #### [address] [address] Basophil, Absolute 0.00 10 3/mcL Normal 0.00-0.27 [facility] ([place] Comment on above: Performed By: #### A SUZETTE MYERS, CBC #### [address] [address] Basophils/100 WBC (Bld) 0.1 % Normal 0.0-2.5 [facility] ([place] Comment on above: Performed By: #### A SUZETTE MYERS, CBC #### [place] [address] Eosinophil, Absolute 0.00 10 3/mcL Normal 0.00-0.65 [facility] ([place] Comment on above: Performed By: #### A SUZETTE MYERS, CBC #### [address] [address] Lymphocyte, Absolute 1.40 10 3/mcL Normal 0.90-4.32 [facility] ([place] Comment on above: Performed By: #### A SUZETTE MYERS, CBC #### [address] [address] Monocyte, Absolute 0.20 10 3/mcL Normal 0.09-1.40 [facility] ([place] Comment on above: Performed By: #### A SUZETTE MYERS, CBC #### [address] [address] .Auto DiffOrdered By: SYSTEM SYSTEM on 10-22-2021 Eosinophils/100 WBC (Bld) 0.1 % Normal 0.0-6.0 [facility] Comment on above: Performed By: #### A SUZETTE MYERS, CBC #### [address] [address] Lymphocytes/100 WBC (Bld) 14.4 % Low 20.0-40.0 [facility] Comment on above: Performed By: #### A SUZETTE MYERS, CBC #### [address] [address] Monocytes/100 WBC (Bld) 1.9 % Low 2.0-13.0 [facility] Comment on above: Performed By: #### A SUZETTE MYERS, CBC #### [address] [address] Neutrophils/100 WBC (Bld) 83.5 % High 50.0-75.0 [facility] Comment on above: Performed By: #### A SUZETTE MYERS, CBC #### [address] [address] .NEUABSon 10-22-2021 Neutrophil, Absolute 10.60 10 3/mcL High 2.25-8.10 [facility] ([place] Comment on above: Performed By: #### R UBEO, HBSAB, VARIS, RUBIS #### [address] [address] Neutrophil, Absolute 8.00 10 3/mcL Normal 2.25-8.10 [facility] ([place]) Comment on above: Performed By: #### A SUZETTE MYERS, CBC #### [address] [address] CBCon 10-22-2021 Erythrocyte distribution width (RBC) [Ratio] 12.7 % Normal 11.5-15.5 [facility] ([place] Comment on above: Performed By: #### R UBEO, HBSAB, VARIS, RUBIS #### [address] [address] Hematocrit (Bld) [Volume fraction] 27.3 % Low 34.0-46.0 [facility] ([place] Comment on above: Performed By: #### R UBEO, HBSAB, VARIS, RUBIS #### [address] [address] Hgb 9.3 G/dL Low 12.0-16.0 [facility] ([place] Comment on above: Performed By: #### Jean Carlos UBEO HBSAB, VARIS, RUBIS #### [place] [address] MCH (RBC) [Entitic mass] 30.3 pg Normal 27.0-33.0 [facility] ([place] Comment on above: Performed By: #### R UBEO, HBSAB, VARIS, RUBIS #### [place] [address] MCHC 34.0 G/dL Normal 32.0-36.0 [facility] ([place] Comment on above: Performed By: #### R UBEO, HBSAB, VARIS, RUBIS #### [place] [address] MCV (RBC) [Entitic vol] 89.1 fL Normal 80.0-99.0 [facility] ([place] Comment on above: Performed By: #### R UBEO, HBSAB, VARIS, RUBIS #### [place] [address] Platelet 257 10 3/mcL Normal 150-450 [facility] ([place] Comment on above: Performed By: #### R UBEO, HBSAB, VARIS, RUBIS #### [place] [address] Platelet mean volume (Bld) [Entitic vol] 8.7 fL Normal 6.6-10.5 [facility] ([place] Comment on above: Performed By: #### R UBEO, HBSAB, VARIS, RUBIS #### [place] [address] RBC 3.07 10 6/mcL Low 4.10-5.30 [facility] ([place] Comment on above: Performed By: #### R UBEO, HBSAB, VARIS, RUBIS #### [place] [id number] WBC 12.80 10 3/mcL High 4.50-10.80 [facility] ([place] Comment on above: Performed By: #### R UBEO, HBSAB, VARIS, RUBIS #### [address] [address] Hgb 9.8 G/dL Low 12.0-16.0 [facility] ([place] Comment on above: Performed By: #### A SUZETTE MYERS, CBC #### [address] [address] MCHC 35.0 G/dL Normal 32.0-36.0 [facility] ([place] Comment on above: Performed By: #### A SUZETTE MYERS, CBC #### [address] [address] Platelet 230 10 3/mcL Normal 150-450 [facility] ([place] Comment on above: Performed By: #### A SUZETTE MYERS, CBC #### [place] [address] RBC 3.15 10 6/mcL Low 4.10-5.30 [facility] ([place] Comment on above: Performed By: #### A SUZETTE MYERS, CBC #### [address] [address] WBC 9.50 10 3/mcL Normal 4.50-10.80 [facility] ([place] Comment on above: Performed By: #### A SUZETTE MYERS, CBC #### [address] [address] CBCOrdered By: SYSTEM SYSTEM on 10-22-2021 Erythrocyte distribution width (RBC) [Ratio] 12.9 % Normal 11.5-15.5 [facility] Comment on above: Performed By: #### A SUZETTE MYERS, CBC #### [address] [address] Hematocrit (Bld) [Volume fraction] 27.9 % Low 34.0-46.0 [facility] Comment on above: Performed By: #### A SUZETTE MYERS, CBC #### [address] [address] MCH (RBC) [Entitic mass] 31.0 pg Normal 27.0-33.0 [facility] Comment on above: Performed By: #### A SUZETET MYERS, CBC #### [address] [address] MCV (RBC) [Entitic vol] 88.5 fL Normal 80.0-99.0 [facility] Comment on above: Performed By: #### A SUZETTE MYERS, CBC #### [place] [address] Platelet mean volume (Bld) [Entitic vol] 8.8 fL Normal 6.6-10.5 [facility] Comment on above: Performed By: #### A SUZETTE MYERS, CBC #### [address] [address] LABORATORYOrdered By: SYSTEM SYSTEM on 10-22-2021 Eosinophils/100 [...] Basophil, Absolute 0.00 10 3/mcL Normal 0.00-0.27 [facility] ([place]) Comment on above: Performed By: #### Jean Carlos CANNONEO HBSAB VARIS RUBIS #### [address] [address] Basophils/100 WBC (Bld) 0.3 % Normal 0.0-2.5 [facility] ([place] Comment on above: Performed By: #### Jean Carlos CANNONEYanni HBSAB VARIS RUBIS #### [address] [address] Eosinophil, Absolute 0.00 10 3/mcL Normal 0.00-0.65 [facility] ([place]) Comment on above: Performed By: #### Jean Carlos UBEO HBSAB, VARIS RUBIS #### [address] [address] Eosinophils/100 WBC (Bld) 0.3 % Normal 0.0-6.0 [facility] ([place] Comment on above: Performed By: #### R UBEO HBSAB, VARIS, RUBIS #### [address] [address] Lymphocyte, Absolute 2.40 10 3/mcL Normal 0.90-4.32 [facility] ([place] Comment on above: Performed By: #### R UBEO HBSAB, VARIS, RUBIS #### [address] [address] Lymphocytes/100 WBC (Bld) 18.1 % Low 20.0-40.0 [facility] ([place]) Comment on above: Performed By: #### R UBEO HBSAB, VARIS, RUBIS #### [address] [address] Monocyte, Absolute 0.70 10 3/mcL Normal 0.09-1.40 [facility] ([place] Comment on above: Performed By: #### R UBEO, HBSAB, VARIS, RUBIS #### [address] [address] Monocytes/100 WBC (Bld) 4.9 % Normal 2.0-13.0 [facility] ([place]) Comment on above: Performed By: #### R UBEO, HBSAB, VARIS, RUBIS #### [address] [address] Neutrophils/100 WBC (Bld) 76.4 % High 50.0-75.0 [facility] ([place] Comment on above: Performed By: #### R UBEO, HBSAB, VARIS, RUBIS #### [address] [address] .NEUABSon 10-21-2021 Neutrophil, Absolute 10.30 10 3/mcL High 2.25-8.10 [facility] ([place] Comment on above: Performed By: #### R UBEO, HBSAB, VARIS, RUBIS #### [address] [address] ABO/Rh (Gel)on 10-21-2021 ABO/Rh Interp Positive Invalid Interpretation Code [facility] ([place] Comment on above: Performed By: #### R UBEO, HBSAB, VARIS, RUBIS #### [address] [address] ABS (Gel)on 10-21-2021 ABSC Interp (Gel) Negative Normal [facility] ([place] Comment on above: Performed By: #### R UBEO, HBSAB, VARIS, RUBIS #### [address] [address] CBCon 10-21-2021 Erythrocyte distribution width (RBC) [Ratio] 13.0 % Normal 11.5-15.5 [facility] ([place] Comment on above: Performed By: #### R UBEO HBSAB, VARIS, RUBIS #### [place] [address] Hematocrit (Bld) [Volume fraction] 32.5 % Low 34.0-46.0 [facility] ([place]) Comment on above: Performed By: #### R UBEO HBSAB, VARIS, RUBIS #### [place] [address] Hgb 11.0 G/dL Low 12.0-16.0 [facility] ([place] Comment on above: Performed By: #### R UBEO, HBSAB, VARIS, RUBIS #### [place] [id number] MCH (RBC) [Entitic mass] 30.0 pg Normal 27.0-33.0 [facility] ([place] Comment on above: Performed By: #### R UBEO HBSAB, VARIS, RUBIS #### [place] [address] MCHC 33.9 G/dL Normal 32.0-36.0 [facility] ([place] Comment on above: Performed By: #### R UBEO, HBSAB, VARIS, RUBIS #### [place] [address] MCV (RBC) [Entitic vol] 88.6 fL Normal 80.0-99.0 [facility] ([place] Comment on above: Performed By: #### R UBEO, HBSAB, VARIS, RUBIS #### [place] [address] Platelet 270 10 3/mcL Normal 150-450 [facility] ([place] Comment on above: Performed By: #### R UBEO, HBSAB, VARIS, RUBIS #### [place] [address] Platelet mean volume (Bld) [Entitic vol] 8.5 fL Normal 6.6-10.5 [facility] ([place] Comment on above: Performed By: #### R UBEO, HBSAB, VARIS, RUBIS #### [place] [address] RBC 3.67 10 6/mcL Low 4.10-5.30 [facility] ([place] Comment on above: Performed By: #### R UBEO, HBSAB, VARIS, RUBIS #### [place] [address] WBC 13.40 10 3/mcL High 4.50-10.80 [facility] ([place]) Comment on above: Performed By: #### R UBEO, HBSAB, VARIS, RUBIS #### [place] [address] UAon 10-21-2021 Color (U) Yellow Normal [facility] ([place] Comment on above: Performed By: #### R UBEO, HBSAB, VARIS, RUBIS #### [place] [address] Glucose (U) [Mass/Vol] Negative Normal Negative [facility] ([place] Comment on above: Performed By: #### R UBEO, HBSAB, VARIS, RUBIS #### [place] [address] Ketones Ql (U) Trace Normal Neg-Trace [facility] ([place] Comment on above: Performed By: #### R UBEO, HBSAB, VARIS, RUBIS #### [place] [address] UA Appear Hazy Abnormal Clear [facility] ([place] Comment on above: Performed By: #### R UBEO, HBSAB, VARIS, RUBIS #### [place] [address] UA Blood Negative Normal Neg-Trace [facility] ([place] Comment on above: Performed By: #### R UBEO, HBSAB, VARIS, RUBIS #### [place] [address] UA Leuk Est Large Abnormal Negative [facility] ([place] Comment on above: Performed By: #### R UBEO, HBSAB, VARIS, RUBIS #### [address] [address] UA Nitrite Negative Normal Negative [facility] ([place] Comment on above: Performed By: #### Jean Carlos CANNONEYanni HBSAB, VARIS, RUBIS #### [address] [address] UA pH 7.0 Normal 5.0 - 8.0 [facility] ([place] Comment on above: Performed By: #### R UBEYanni HBSAB, VARIS, RUBIS #### [address] [address] UA Protein Negative Normal Negative [facility] ([place] Comment on above: Performed By: #### R UBEYanni HBSAB, VARIS, RUBIS #### [address] [address] UA Spec Grav <=1.005 Abnormal 1.006-1.029 [facility] ([place] Comment on above: Performed By: #### Jean Carlos CANNONEYanni HBSAB, VARIS, RUBIS #### [address] [address] UA Specimen Type Clean Catch Normal [facility] ([place] Comment on above: Performed By: #### Jean Carlos UBEO HBSAB, VARIS, RUBIS #### [address] [address] UA Urobilinogen 0.2 E.U./dL Normal 0.2-1.0 [facility] ([place] Comment on above: Performed By: #### R UBEO HBSAB, VARIS, RUBIS #### [address] [address] Urobilinogen (U) [Mass/Vol] Negative Normal Neg-Trace [facility] ([place] Comment on above: Performed By: #### R UBEO, HBSAB, VARIS, RUBIS #### [address] [address] UAMICon 10-21-2021 UA Bacteria Trace Abnormal Negative [facility] ([place]) Comment on above: Performed By: #### R UBEO HBSAB, VARIS, RUBIS #### [facility] [address] [place] [address] UA RBC Negative Normal 0-2 [facility] ([place] Comment on above: Performed By: #### R UBEO, HBSAB, VARIS, RUBIS #### [facility] [address] [place] [address] UA Squam Epithelial 3-5 Normal 0-20 [facility] [place] Comment on above: Performed By: #### R UBEO, HBSAB, VARIS, RUBIS #### [facility] [address] [place] [address] UA WBC 5-10 Abnormal 0-5 [facility] ([place] Comment on above: Performed By: #### R UBEO, HBSAB, VARIS, RUBIS #### [facility] [address] [place] [address] LABORATORYOrdered By: Chasity Tinajero on 10-20-2021 ABO [...] Mixed growth consistent with normal urogenital mery. [facility] Work Phone: OBSTETRIC ULTRASOUND WHIon 0 10-18-2021 [facility] No Panel Informationon 10-07 Group B Streptococcus Culture Group B Beta Streptococcus is not isolated. [facility] Work Phone: Basophil percentageon 2021 Basophil percentage 0-5 SEEN /hpf [facility] Work Phone: WBC (Bld) [#/Vol] 8.8 10*3/uL 4.4-11.0 [facility] Work Phone: Bilirubin Test strip Ql (U)o n 10-06-2021 Bilirubin Ql (U) Negative Negative [facility] Work Phone: Blood erythrocytes count (nu mber/volume)on 10-06-2021 RBC (Bld) [#/Vol] 3.35 10*6/uL 4.2-5.4 [facility] Work Phone: Blood hemoglobin measurement (mass/volume)on 10-06-2021 Hemoglobin (Bld) [Mass/Vol] 10.4 g/dL 12.0-15.0 [facility] Work Phone: Blood platelet mean volumeon 10-06-2021 Platelet mean volume (Bld) [Entitic vol] 10.3 fL 6.2-12.0 [facility] Work Phone: Determination of erythrocyte mean corpuscular volume (MCV)on 10-06-2021 MCV (RBC) [Entitic vol] 90.7 fL 81-99 [facility] Work Phone: fibronectinon 10-07-19 22 Fibronectin. (Vag fld) [Mass/Vol] Negative [facility] Work Phone: Hematocrit Auto (Bld) [Volum e fraction]on 10-06-2021 Hematocrit (Bld) [Volume fraction] 30.4 % 37-47 [facility] Work Phone: INR in Blood by Coagulation assayon 10-06-2021 INR Coag (Bld) [Relative time] 1.0 {INR} [facility] Work Phone: Ketones Test strip Ql (U)on 10-06-2021 Ketones Ql (U) Negative Negative [facility] Work Phone: Laboratory - Coagulationon 0 10-06-2021 aPTT Coag (Bld) [Time] 33.3 s 24.1-36.2 [facility] Work Phone: PT Coag (PPP) [Time] 13.0 s 11.7-14.9 [facility] Work Phone: Laboratory - Hematology and Cell countson 10-06-2021 Erythrocyte distribution width (RBC) [Entitic vol] 43.7 fL 35.1-43.9 [facility] Work Phone: Erythrocyte distribution width (RBC) [Ratio] 13.2 % 11.6-14.6 [facility] Work Phone: MCH (RBC) [Entitic mass] 31.0 pg 27.0-32.0 [facility] Work Phone: MCHC Auto (RBC) [Mass/Vol]on 10-06-2021 MCHC (RBC) [Mass/Vol] 34.2 g/dL 32-36 [facility] Work Phone: Mucus LM Ql (Urine sed)on Mucus Ql (Urine sed) 0 SEEN /hpf [facility] Work Phone: Nitrite Test strip Ql (U)on 10-06-2021 Nitrite Ql (U) Negative Negative [facility] Work Phone: No Panel Informationon 10-06 Specimen Comment (Misc) Not Reportable [facility] Work Phone: Fibrinogen 399 mg/dl 203-444 [facility] Work Phone: Platelets bldon 10-06-2021 Platelets (Bld) [#/Vol] 279 10*3/uL 150-450 [facility] Work Phone: Protein Test strip Ql (U)on 10-06-2021 Protein Ql (U) 15 mg/dl Negative [facility] Work Phone: Squamous epithelial cells de tection in urine sediment by light microscopyon 10-06-2021 Epithelial cells.squamous LM Ql (Urine sed) 5-10 SEEN /hpf [facility] Work Phone: Thin prep Papanicolaou smear with manual screeningon 10-06-2021 Thin prep Papanicolaou smear with manual screening Negative Negative [facility] Work Phone: URINE OB DIP B/Oon Glucose Ql (U) Negative Neg mg/dL [facility] Protein.monoclonal (U) [Mass/Vol] trace Neg mg/dL [facility] Urine blood detectionon 09-13 RBC Ql (U) Negative Negative [facility] Work Phone: RBC Ql (U) 0-5 SEEN /hpf [facility] Work Phone: Urine clarityon 10-06-2021 Clarity (U) Clear Clear [facility] Work Phone: Urine color determinationon 10-06-2021 Color (U) Yellow Yellow [facility] Work Phone: Urine glucose detectionon Glucose Ql (U) Normal mg/dl Normal [facility] Work Phone: Urine leukocyte esterase det ection by dipstickon 10-06-2021 Leukocyte esterase Test strip Ql (U) 100 /ul Negative [facility] Work Phone: Urine pHon 10-06-2021 pH (U) 7.0 [pH] [facility] Work Phone: Urine sediment bacteria coun t by microscopy (number/high power field)on 10-06-2021 Bacteria LM.HPF (Urine sed) [#/Area] 0 /[HPF] None Seen [facility] Work Phone: Urine specific gravity measu rementon 10-06-2021 Specific gravity (U) [Rel density] 1.010 [facility] Work Phone: Urobilinogen Auto test strip Ql (U)on 10-06-2021 Urobilinogen Ql (U) Normal mg/dl Normal [facility] Work Phone: LABORATORYOrdered By: Agueda Seo [...] UAon 09-18-2021 Color (U) Dark Yellow Normal [facility] ([place] Comment on above: Performed By: #### R UBEO, HBSAB, VARIS, RUBIS #### [address] [address] Glucose (U) [Mass/Vol] Negative Normal Negative [facility] ([place]) Comment on above: Performed By: #### R DAVISEYanni HBSAB, VARIS, RUBIS #### [address] [address] Ketones Ql (U) Trace Normal Neg-Trace [facility] ([place]) Comment on above: Performed By: #### R UBEO, HBSAB, VARIS, RUBIS #### [place] [address] UA Appear Cloudy Abnormal Clear [facility] ([place]) Comment on above: Performed By: #### R UBEO, HBSAB, VARIS, RUBIS #### [address] [address] UA Blood Negative Normal Neg-Trace [facility] ([place]) Comment on above: Performed By: #### R UBEO, HBSAB, VARIS, RUBIS #### [place] [address] UA Leuk Est Moderate Abnormal Negative [facility] ([place]) Comment on above: Performed By: #### R UBEO, HBSAB, VARIS, RUBIS #### [address] [address] UA Nitrite Negative Normal Negative [facility] ([place]) Comment on above: Performed By: #### R UBEO, HBSAB, VARIS, RUBIS #### [place] [address] UA pH 6.0 Normal 5.0 - 8.0 [facility] ([place]) Comment on above: Performed By: #### R UBEO, HBSAB, VARIS, RUBIS #### [address] [address] UA Protein Trace Normal Negative [facility] ([place]) Comment on above: Performed By: #### R UBEO, HBSAB, VARIS, RUBIS #### [place] [address] UA Spec Grav >=1.030 Abnormal 1.006-1.029 [facility] ([place] Comment on above: Performed By: #### R UBEYanni HBSAB VARIS RUBFRANK #### [address] [address] UA Specimen Type Clean Catch Normal [facility] ([place] Comment on above: Performed By: #### R UBEYanni HBSAB VARIS RUBIS #### [place] [address] UA Urobilinogen 1.0 E.U./dL Normal 0.2-1.0 [facility] ([place] Comment on above: Performed By: #### R DAVISEYanni HBSAB VARIS RUBFRANK #### [place] [address] Urobilinogen (U) [Mass/Vol] Negative Normal Neg-Trace [facility] ([place] Comment on above: Performed By: #### R UBEO HBSAB VARIS RUBIS #### [place] [address] UAMICon 09-18-2021 UA Bacteria 1+ /hpf Abnormal Negative [facility] ([place] Comment on above: Performed By: #### R UBEO HBSAB VARIS RUBIS #### [place] [id number] UA CA Ox Crystal 1+ /hpf Normal [facility] ([place] Comment on above: Performed By: #### R UBEO HBSAB VARIS RUBIS #### [address] [address] UA Mucous Trace Normal [facility] ([place] Comment on above: Performed By: #### R UBEO, HBSAB, VARIS, RUBIS #### [address] [address] UA RBC Negative Normal 0-2 [facility] ([place] Comment on above: Performed By: #### R UBEO, HBSAB, VARIS RUBIS #### [place] [address] UA Squam Epithelial 3-5 Normal 0-20 [facility] [place] Comment on above: Performed By: #### R UBEO, HBSAB, VARIS, RUBIS #### [address] [address] UA WBC 5-10 Abnormal 0-5 [facility] ([place] Comment on above: Performed By: #### R UBEO, HBSAB, VARIS, RUBIS #### [facility] [address] [place] [address] CBCon 08-29-2021 BASO# 0.00 x10(3) Normal 0.00-0.10 [facility] Comment on above: Performed By: #### L 200.0010 #### [facility] [address] [place] [address] Basophils/100 WBC (Bld) 0.1 % Normal 0.0-1.0 [facility] Comment on above: Performed By: #### L 200.0010 #### [facility] [address] [place] [address] EOS# 0.10 x10(3) Normal 0.00-0.54 [facility] Comment on above: Performed By: #### L 200.0010 #### [facility] [address] [place] [address] Eosinophils/100 WBC (Bld) 1.9 % Normal 0.5-4.9 [facility] Comment on above: Performed By: #### L 200.0010 #### [facility] [address] [place] [address] Erythrocyte distribution width (RBC) [Ratio] 13.3 % Normal 12.5-15.7 [facility] Comment on above: Performed By: #### L 200.0010 #### [facility] [address] [place] [address] Hematocrit (Bld) [Volume fraction] 29.4 % Low 36.0-48.0 [facility] Comment on above: Performed By: #### L 200.0010 #### [facility] [address] [place] [address] Hemoglobin (Bld) [Mass/Vol] 9.8 g/dL Low 12.0-16.0 [facility] Comment on above: Performed By: #### L 200.0010 #### [facility] [address] [place] [address] LYMPH# 1.40 x10(3) Normal 1.00-3.50 [facility] Comment on above: Performed By: #### L 200.0010 #### [facility] [address] [place] [address] Lymphocytes/100 WBC (Bld) 23.8 % Normal 16.0-48.0 [facility] Comment on above: Performed By: #### L 200.0010 #### [facility] [address] [place] [address] MCH (RBC) [Entitic mass] 29.8 pg Normal 28.5-32.9 [facility] Comment on above: Performed By: #### L 200.0010 #### [facility] [address] [place] [address] MCHC (RBC) [Mass/Vol] 33.3 g/dL Normal 33.0-36.0 [facility] Comment on above: Performed By: #### L 200.0010 #### [facility] [address] [place] [address] MCV (RBC) [Entitic vol] 89.5 fL Normal 80.0-99.0 [facility] Comment on above: Performed By: #### L 200.0010 #### [facility] [address] [place] [address] MONO# 0.40 x10(3) Normal 0.30-0.80 [facility] Comment on above: Performed By: #### L 200.0010 #### [facility] [address] [place] [address] Monocytes/100 WBC (Bld) 7.4 % Normal 4.3-11.2 [facility] Comment on above: Performed By: #### L 200.0010 #### [facility] [address] [place] [address] NEUT# 3.90 x10(3) Normal 1.40-6.50 [facility] Comment on above: Performed By: #### L 200.0010 #### [facility] [address] [place] [address] Neutrophils/100 WBC (Bld) 66.8 % Normal 45.0-73.0 [facility] Comment on above: Performed By: #### L 200.0010 #### [facility] [address] [place] [address] Platelet mean volume (Bld) [Entitic vol] 7.9 fL Normal 7.5-9.5 [facility] Comment on above: Performed By: #### L 200.0010 #### [facility] [address] [place] [address] PLT 212 X10(3) Normal 150-450 [facility] Comment on above: Performed By: #### L 200.0010 #### [facility] [address] [place] [address] RBC 3.28 x10(6) Low 3.30-5.00 [facility] Comment on above: Performed By: #### L 200.0010 #### [facility] [address] [place] [address] WBC 5.9 x10(3) Normal 4.5-10.0 [facility] Comment on above: Performed By: #### L 200.0010 #### [facility] [address] [place] [address] CMPon 08-29-2021 ALT [Catalytic activity/Vol] U/L Low 5-33 [facility] Comment on above: Performed By: #### L 100.0005 #### [facility] [address] [place] [address]648 A:G RATIO 1.14 Normal 1.1-2.5 [facility] Comment on above: Performed By: #### L 100.0005 #### [facility] [address] [place] [address] Albumin [Mass/Vol] 3.1 g/dL Low 3.5-5.2 [facility] Comment on above: Performed By: #### L 100.0005 #### [facility] [address] [place] [address] ALK. PHOS 81 U/L Normal 35-105 [facility] Comment on above: Performed By: #### L 100.0005 #### [facility] [address] [place] [address] Anion gap [Moles/Vol] 12.5 mmol/L Low 15-22 [facility] Comment on above: Performed By: #### L 100.0005 #### [facility] [address] [place] [address] AST [Catalytic activity/Vol] 17 U/L Normal 5-32 [facility] Comment on above: Performed By: #### L 100.0005 #### [facility] [address] [place] [address] Bilirubin [Mass/Vol] 0.3 mg/dL Normal 0.2-1.2 [facility] Comment on above: Performed By: #### L 100.0005 #### [facility] [address] [place] [address] Calcium [Mass/Vol] 8.2 mg/dL Low 8.6-10.0 [facility] Comment on above: Performed By: #### L 100.0005 #### [facility] [address] [place] [address] Chloride [Moles/Vol] 99 mmol/L Normal 98-107 [facility] Comment on above: Performed By: #### L 100.0005 #### [facility] [address] [place] [address] CO2 [Moles/Vol] 25 mmol/L Normal 22-29 [facility] Comment on above: Performed By: #### L 100.0005 #### [facility] [address] [place] [address] Creatinine [Mass/Vol] 0.40 mg/dL Low 0.50-0.90 [facility] Comment on above: Performed By: #### L 100.0005 #### [facility] [address] [place] [address] [place] [address] eGFR if AFR HANSA > 60 ml/min/1.73m2 Normal U [facility] Comment on above: Result Comment: eGFR >= [...] (www.nkdep.nih.gov). Performed By: #### L 100.0005 #### [facility] [address] [place] [address] eGFR nonAFR Hansa > 60 ml/Min/1.73m2 Normal U [facility] Comment on above: Performed By: #### L 100.0005 #### [facility] [address] [place] [address] Globulin (S) [Mass/Vol] 2.7 g/dL Normal 1.5-4.5 [facility] Comment on above: Performed By: #### L 100.0005 #### [facility] [address] [place] [address] Glucose [Mass/Vol] 85 mg/dL Normal 74-106 [facility] Comment on above: Performed By: #### L 100.0005 #### [facility] [address] [place] [address] Potassium [Moles/Vol] 3.5 mmol/L Normal 3.5-5.0 [facility] Comment on above: Performed By: #### L 100.0005 #### [facility] [address] [place] [address] Protein [Mass/Vol] 5.8 g/dL Low 6.4-8.3 [facility] Comment on above: Performed By: #### L 100.0005 #### [facility] [address] [place] [address] Sodium [Moles/Vol] 133 mmol/L Low 135-145 [facility] Comment on above: Performed By: #### L 100.0005 #### [facility] [address] [place] [address] Urea nitrogen [Mass/Vol] 8 mg/dL Normal 6-20 [facility] Comment on above: Performed By: #### L 100.0005 #### [facility] [address] [place] [address] ED REPORTon 08-29-2021 [place] [address] [facility] INFORMATION MANAGEMENT EMERGENCY DEPARTMENT REPORT Patient: MARZENA PICKERING ANTOINE YOUNG as dictated by MARIA A BENNETT [phone] F Status: DEP ER ED [...] very similar to this. She called her collar runner. Her collar runner recommended her to come in and get [...] . 3. Pelvic cramping. Report#: Dict ID [id number] / Int ID [id number] 09/01/[id number] ANTOINE WALKERC cc: ANTOINE WALKER; No Physician << Signature on File>> Reported By: ANTOINE WALKER Signed By: ANTOINE WALKER Tests performed at: [place] [address] Normal [facility] URINALYSISon 08-29-2021 Bilirubin Ql (U) Negative Normal NEGATIVE [facility] Comment on above: Performed By: #### L 200.3000 #### [facility] [address] [place] [address] Color (U) YELLOW Normal YELLOW [facility] Comment on above: Performed By: #### L 200.3000 #### [facility] [address] [place] [address] Glucose Ql (U) Negative Normal NEGATIVE [facility] Comment on above: Performed By: #### L 200.3000 #### [facility] [address] [place] [address] Hemoglobin Ql (U) Negative Normal NEGATIVE [facility] Comment on above: Performed By: #### L 200.3000 #### [facility] [address] [place] [address] Leukocyte esterase Test strip Ql (U) Negative Normal NEGATIVE [facility] Comment on above: Performed By: #### L 200.3000 #### [facility] [address] [place] [address] Nitrite Ql (U) Negative Normal NEGATIVE [facility] Comment on above: Performed By: #### L 200.3000 #### [facility] [address] [place] [address] pH (U) 6.5 [pH] Normal 5.0-8.0 [facility] Comment on above: Performed By: #### L 200.3000 #### [facility] [address] [place] [address] Protein Ql (U) Negative Normal NEGATIVE [facility] Comment on above: Performed By: #### L 200.3000 #### [facility] [address] [place] [address] URINE APPEARANC CLEAR Normal CLEAR [facility] Comment on above: Performed By: #### L 200.3000 #### [facility] [address] [place] [address] URINE KETONE Negative Normal NEGATIVE [facility] Comment on above: Performed By: #### L 200.3000 #### [facility] [address] [place] [address] URINE SPECIFIC 1.010 Normal 1.001-1.035 [facility] Comment on above: Performed By: #### L 200.3000 #### [facility] [address] [place] [address] URINE UROBILINO 0.2 EU/DL Normal 0.2-1.0 [facility] Comment on above: Performed By: #### L 200.3000 #### [facility] [address] [place] [address] SARS-CoV-2 (COVID-19) RT-PCR on 08-12-2021 SARS-CoV-2 (COVID-19) RNA NIGHAT+probe Ql (Unsp spec) Negative Normal [facility] Comment on above: Order Comment: Relea se to patient->Automatic 43747&Nasal swab Result Comment: NEGA TIVE: SARS-CoV-2 RNA [...] Nancy SARS-CoV-2 assay on the [employer] System. - Comment: This test has received FDA Emergency Use Authorization (EUA) and has been verified by [facility]. This test is only authorized for the [...] at the following links: For Healthcare Providers: www.fda.gov/media/280968/download For Patients: www.fda.gov/media/573606/download - Reference Value: Negative Performed By: #### C OVID #### [facility] [address] [place], [place] [id number] NANCY SARS CoV-2 RT PCR Not detected Normal [facility] Comment on above: Order Comment: Relea se to patient->Automatic 99187&Nasal swab Performed By: #### C OVID #### [address] [id number] SARS-CoV-2 (COVID-19) RT-PCR on 08-11-2021 Hospitalized? No Normal [facility] Comment on above: Order Comment: Relea se to patient->Automatic 72381&Nasal swab Performed By: #### C OVID #### [address] [address] ICU? No Normal [facility] Comment on above: Order Comment: Relea se to patient->Automatic 86678&Nasal swab Performed By: #### C OVID #### [address] [address] ? Unknown Normal [facility] Comment on above: Order Comment: Relea se to patient->Automatic 71419&Nasal swab Performed By: #### C OVID #### [address] [address] Resident in congregate care setting? No Normal [facility] Comment on above: Order Comment: Relea se to patient->Automatic 62418&Nasal swab Performed By: #### C OVID #### [address] [address] SARS-CoV-2 (COVID-19) RT-PCR on 08-04-2021 SARS-CoV-2 (COVID-19) RNA NIGHAT+probe Ql (Unsp spec) Negative [facility] Comment on above: Order Comment: Relea se to patient->Automatic 45072&Nasal swab Result Comment: NEGA TIVE: SARS-CoV-2 RNA [...] Authorization (EUA) and has been verified by [facility]. This test is only authorized for the [...] at the following links: For Healthcare Providers: www.fda.gov/media/293181/download For Patients: www.fda.gov/media/527252/download - Reference Value: Negative Performed By: #### C OVID #### [place] [address] NANCY SARS CoV-2 RT PCR Not detected Normal [facility] Comment on above: Order Comment: Relea se to patient->Automatic 55184&Nasal swab Performed By: #### C OVID #### [address] [address] SARS-CoV-2 (COVID-19) RT-PCR on 08-03-2021 Hospitalized? No Normal [facility] Comment on above: Order Comment: Relea se to patient->Automatic 87094&Nasal swab Performed By: #### C OVID #### [address] [address] ICU? No Normal [facility] Comment on above: Order Comment: Relea se to patient->Automatic 33764&Nasal swab Performed By: #### C OVID #### [address] [address] ? Unknown Normal [facility] Comment on above: Order Comment: Relea se to patient->Automatic 37768&Nasal swab Performed By: #### C OVID #### [address] [address] Resident in congrega care setting? No Normal [facility] Comment on above: Order Comment: Relea se to patient->Automatic 50058&Nasal swab Performed By: #### C OVID #### [address] [address] RUBEOon 07-28-2021 Rubeola IgG Ab Positive Normal [facility] ([place] Comment on above: Result Comment: INTE RPRETATION OF RUBEOLA (MEASLES) IGG BY EIA: Negative Nonreactive (Negative) for anti-Rubeola IgG. Presumed non-immune to measles virus. Positive Reactive (Positive) for anti-Rubeola IgG. Presumed immune to measles virus. Equivocal Repeat testing if still indicated. Performed By: #### R UBEO, HBSAB, VARIS, RUBIS #### [place] [address] RUBISon 07-28-[address] Positive Normal Positive [facility] ([place] Comment on above: Result Comment: This immune status assay detects IgM and/or IgG antibody to Rubella. Interpret results in conjunction with clinical history. POS: Antibody detected; exposure at undetermined recent or distant time. If clinically indicated, order Rubella IGM to rule out recent infection. NEG: No antibody detected. Performed By: #### R UBEO, HBSAB, VARIS, RUBIS #### [address] [address] VARISon 07-28-[address] Positive Normal [facility] ([place]) Comment on above: Result Comment: This immune [...] By: #### R DAVISEO, HBSABSANA RUBIS #### [address] [address] HBSABon 07-27-2021 Hep B Surf Ab >80107.0 Normal >=10.0 [facility] ([place]) Comment on above: Result Comment: 0 to [...] By: #### R DAVISEO, HBSABSANA RUBIS #### [address] [address] SARS-CoV-2 (COVID-19) RT-PCR on 07-27-2021 SARS-CoV-2 (COVID-19) RNA NIGHAT+probe Ql (Unsp spec) Negative Normal [facility] Comment on above: Order Comment: Relea se to patient->Automatic 84530&Nasal swab Result Comment: NEGA TIVE: SARS-CoV-2 RNA [...] Nancy SARS-CoV-2 assay on the [employer] Nancy DNAe LTD0 System. - Comment: This test has received FDA Emergency Use Authorization (EUA) and has been verified by [facility]. This test is only authorized for the [...] at the following links: For Healthcare Providers: www.fda.gov/media/639580/download For Patients: www.fda.gov/media/589396/download - Reference Value: Negative Performed By: #### C OVID #### [place] [address] NANCY SARS CoV-2 RT PCR Not detected Normal [facility] Comment on above: Order Comment: Relea se to patient->Automatic 20708&Nasal swab Performed By: #### C OVID #### [address] [address] SARS-CoV-2 (COVID-19) RT-PCR on 07-25-2021 Hospitalized? No Normal [facility] Comment on above: Order Comment: Relea se to patient->Automatic 43088&Nasal swab Performed By: #### C OVID #### [address] [address] ICU? No Normal [facility] Comment on above: Order Comment: Relea se to patient->Automatic 33555&Nasal swab Performed By: #### C OVID #### [address] [address] ? Unknown Normal [facility] Comment on above: Order Comment: Relea se to patient->Automatic 83675&Nasal swab Performed By: #### C OVID #### [address] [address] Resident in congregate care setting? No Normal [facility] Comment on above: Order Comment: Relea se to patient->Automatic 87928&Nasal swab Performed By: #### C OVID #### [address] [address] SARS-CoV-2 (COVID-19) RT-PCR on 07-14-2021 SARS-CoV-2 (COVID-19) RNA NIGHAT+probe Ql (Unsp spec) Negative Normal [facility] Comment on above: Order Comment: Relea se to patient->Automatic 01839&Nasal swab Result Comment: NEGA TIVE: SARS-CoV-2 RNA [...] Nancy SARS-CoV-2 assay on the [employer] Nancy DNAe LTD0 System. - Comment: This test has received FDA Emergency Use Authorization (EUA) and has been verified by [facility]. This test is only authorized for the [...] at the following links: For Healthcare Providers: www.[employer].gov/media/841047/download For Patients: www.[employer].gov/media/642105/download - Reference Value: Negative Performed By: #### C OVID #### [place] [address] NANCY SARS CoV-2 RT PCR Not detected Normal [facility] Comment on above: Order Comment: Relea se to patient->Automatic 19184&Nasal swab Performed By: #### C OVID #### [place] [address] SARS-CoV-2 (COVID-19) RT-PCR on 07-12-2021 Hospitalized? No Normal [facility] Comment on above: Order Comment: Relea se to patient->Automatic 80414&Nasal swab Performed By: #### C OVID #### [place] [address] ICU? No Normal [facility] Comment on above: Order Comment: Relea se to patient->Automatic 86142&Nasal swab Performed By: #### C OVID #### [place] [address] ? Unknown Normal [facility] Comment on above: Order Comment: Relea se to patient->Automatic 25204&Nasal swab Performed By: #### C OVID #### [facility] [address] [place] [address] Resident in congregate care setting? No Normal [facility] Comment on above: Order Comment: Relea se to patient->Automatic 23945&Nasal swab Performed By: #### C OVID #### [facility] [address] [place] [address] SARS-CoV-2 (COVID-19) RT-PCR on 06-19-2021 SARS-CoV-2 (COVID-19) RNA NIGHAT+probe Ql (Unsp spec) Negative Normal [facility] Comment on above: Order Comment: Relea se to patient->Automatic 40071&Nasal swab Result Comment: NEGA TIVE: SARS-CoV-2 RNA [...] Nancy SARS-CoV-2 assay on the [employer] Nancy DNAe LTD0 System. - Comment: This test has received FDA Emergency Use Authorization (EUA) and has been verified by [facility]. This test is only authorized for the [...] at the following links: For Healthcare Providers: www.[employer].gov/media/442033/download For Patients: www.[employer].gov/media/166121/download - Reference Value: Negative Performed By: #### C OVID #### [place] [address] NANCY SARS CoV-2 RT PCR Not detected Normal [facility] Comment on above: Order Comment: Relea se to patient->Automatic 74136&Nasal swab Performed By: #### C OVID #### [place] [address] Hospitalized? No Normal [facility] Comment on above: Order Comment: Relea se to patient->Automatic 55898&Nasal swab Performed By: #### C OVID #### [place] [address] ICU? No Normal [facility] Comment on above: Order Comment: Relea se to patient->Automatic 74031&Nasal swab Performed By: #### C OVID #### [place] [address] ? Unknown Normal [facility] Comment on above: Order Comment: Relea se to patient->Automatic 31799&Nasal swab Performed By: #### C OVID #### [place] [address] Resident in congregate care setting? No Normal [facility] Comment on above: Order Comment: Relea se to patient->Automatic 26981&Nasal swab Performed By: #### C OVID #### [place] [address] SARS-CoV-2 (COVID-19) RT-PCR on 06-07-2021 SARS-CoV-2 (COVID-19) RNA NIGHAT+probe Ql (Unsp spec) Negative Normal [facility] Comment on above: Order Comment: Relea se to patient->Automatic 44246&Nasal swab Result Comment: NEGA TIVE: SARS-CoV-2 RNA [...] Authorization (EUA) and has been verified by [facility]. This test is only authorized for the [...] at the following links: For Healthcare Providers: www.fda.gov/media/346509/download For Patients: www.fda.gov/media/538570/download - Reference Value: Negative Performed By: #### C OVID #### [address] [address] NANCY SARS CoV-2 RT PCR Not detected [facility] Comment on above: Order Comment: Relea se to patient->Automatic 22368&Nasal swab Performed By: #### C OVID #### [address] [address] Hospitalized? No Normal [facility] Comment on above: Order Comment: Relea se to patient->Automatic 71609&Nasal swab Performed By: #### C OVID #### [address] [address] ICU? No Normal [facility] Comment on above: Order Comment: Relea se to patient->Automatic 74703&Nasal swab Performed By: #### C OVID #### [address] [address] ? Unknown Normal [facility] Comment on above: Order Comment: Relea se to patient->Automatic 46492&Nasal swab Performed By: #### C OVID #### [address] [address] Resident in congregate care setting? No Normal [facility] Comment on above: Order Comment: Relea se to patient->Automatic 13957&Nasal swab Performed By: #### C OVID #### [address] [address] SARS-CoV-2 (COVID-19) RT-PCR on 06-01-2021 SARS-CoV-2 (COVID-19) RNA NIGHAT+probe Ql (Unsp spec) Negative [facility] Comment on above: Order Comment: Relea se to patient->Automatic 77948&Nasal swab Result Comment: NEGA TIVE: SARS-CoV-2 RNA [...] Nancy SARS-CoV-2 assay on the [employer] Nancy DNAe LTD0 System. - Comment: This test has received FDA Emergency Use Authorization (EUA) and has been verified by [facility]. This test is only authorized for the [...] at the following links: For Healthcare Providers: www.fda.gov/media/301679/download For Patients: www.fda.gov/media/042223/download - Reference Value: Negative Performed By: #### C OVID #### [address] [id number] NANCY SARS CoV-2 RT PCR Not detected Normal [facility] Comment on above: Order Comment: Relea se to patient->Automatic 37424&Nasal swab Performed By: #### C OVID #### [address] [id number] SARS-CoV-2 (COVID-19) RT-PCR on 05-31-2021 Hospitalized? No Normal [facility] Comment on above: Order Comment: Relea se to patient->Automatic 85099&Nasal swab Performed By: #### C OVID #### [address] [address] ICU? No Normal [facility] Comment on above: Order Comment: Relea se to patient->Automatic 85134&Nasal swab Performed By: #### C OVID #### [address] [address] ? Unknown Normal [facility] Comment on above: Order Comment: Relea se to patient->Automatic 15672&Nasal swab Performed By: #### C OVID #### [address] [address] Resident in congregate care setting? No Normal [facility] Comment on above: Order Comment: Relea se to patient->Automatic 24451&Nasal swab Performed By: #### C OVID #### [address] [address] SARS-CoV-2 (COVID-19) RT-PCR on 05-18-2021 SARS-CoV-2 (COVID-19) RNA NIGHAT+probe Ql (Unsp spec) Negative [facility] Comment on above: Order Comment: Relea se [...] Authorization (EUA) and has been verified by [facility]. This test is only authorized for the [...] at the following links: For Healthcare Providers: www.fda.gov/media/908772/download For Patients: www.fda.gov/media/507334/download - Reference Value: Negative Performed By: #### C OVID #### [address] [address] NANCY SARS CoV-2 RT PCR Not detected Normal [facility] Comment on above: Order Comment: Relea se to patient->Automatic Performed By: #### C OVID #### [address] [id number] SARS-CoV-2 (COVID-19) RT-PCR on 05-17-2021 Hospitalized? No Normal [facility] Comment on above: Order Comment: Relea se to patient->Automatic Performed By: #### C OVID #### [address] [id number] ICU? No Normal [facility] Comment on above: Order Comment: Relea se to patient->Automatic Performed By: #### C OVID #### [address] [id number] ? Unknown Normal [facility] Comment on above: Order Comment: Relea se to patient->Automatic Performed By: #### C OVID #### [address] [address] Resident in congregate care setting? No Normal [facility] Comment on above: Order Comment: Relea se to patient->Automatic Performed By: #### C OVID #### [address] [address] ROUTINE COVIDon 04-24-2021 SARS-CoV-2 (COVID-19) RNA NIGHAT+probe Ql (Unsp spec) Positive Invalid Interpretation Code NEGATIVE [facility] Comment on above: Order [...] PUI TO TUSC Performed By: #### L [phone] #### [facility] [address] [place] [address] # [phone] CSon 04-22-2021 [facility] REPORT Normal [facility] DATE OF SERVICE: 04/22/2021 HISTORY OF PRESENT ILLNESS: Patient is a 31-year-old white female who presents to the clinic with positive COVID exposure. 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. She has a headache, weakness and congestion. [...] or wheezing. Abdomen: Positive bowel sounds x4 [facility] PATIENT NAME: MARZENA PICKERING [facility] REC #: [id number] [place], [place] ADMIT DATE: [facility]. Negative masses or tenderness on palpation. Negative organomegaly. Extremities: Negative clubbing, cyanosis or edema. Negative deformity. DIAGNOSIS: Probable COVID. PLAN: Patient is COVID PCR swabbed and told to self quarantine until she gets her results back. She is given Keflex 500 mg, No. 30, one p.o. t.i.d., no refills. supervisor plasma Mucinex 1200 mg to take one twice a day for week, increase water and decrease dairy to make it more effective. Tylenol for any fever or sore throat pain. She was given a note for work that she is to self quarantine until she does get her results back. Return to clinic if any other issues. Bradford Mario DO /[id number] SSI File#: [id number] [facility] PATIENT NAME: MARZENA PICKERING [facility] REC #: [id number] [place] ADMIT DATE: [facility] REPORT [facility] PHYSICIAN END OF DOCUMENT / CHANGE LOG FOLLOWS Last Edited By Rupali. Signed By Bradford Mario DO #Bradford Galdamez DO #RUSS on 04/26/2021 07:45 ET on 04/26/2021 07:45 ET Revision Number - 2 Verified/Reviewed by 04/26/21 0745 RUSS [facility] PATIENT NAME: MARZENA PICKERING [facility] REC #: [id number] KAJAL Mena ADMIT DATE: [facility] RE[facility] PHYSICIAN [facility] Vital Signs Date Time Vital Sign Value Performing Clinician Facility 03-29-2025 07:25-040 Heart rate 64 /min No Primary Care Physician [facility] 03-29-2025 07:25-0400 SaO2% (BldA) [Mass fraction] 99 % No Primary Care Physician [facility] 03-29-2025 07:24-0400 Body temperature 97.7 [degF] No Primary Care Physician [facility] 03-29-2025 07:24-0400 Diastolic blood pressure 59 mm[Hg] No Primary Care Physician [facility] 03-29-2025 07:24-0400 Respiratory rate 16 /min No Primary Care Physician [facility] 03-29-2025 07:24-0400 Systolic blood pressure 105 mm[Hg] No Primary Care Physician [facility] 03-29-2025 00:13-0400 Body height 162.56 cm No Primary Care Physician [facility] 03-29-2025 00:13-0400 Body mass index (BMI) [Ratio] 18.6 kg/m2 No Primary Care Physician [facility] 03-29-2025 00:13-0400 Body weight 49.1 kg No Primary Care Physician [facility] 03-17-2025 20:43-0400 Body temperature 97.5 [degF] No Primary Care Physician [facility] 03-17-2025 20:43-0400 Diastolic blood pressure 79 mm[Hg] No Primary Care Physician [facility] 03-17-2025 20:43-0400 Heart rate 79 /min No Primary Care Physician [facility] 03-17-2025 20:43-0400 Respiratory rate 14 /min No Primary Care Physician [facility] 03-17-2025 20:43-0400 SaO2% (BldA) [Mass fraction] 98 % No Primary Care Physician [facility] 03-17-2025 20:43-0400 Systolic blood pressure 125 mm[Hg] No Primary Care Physician [facility] 03-17-2025 20:40-0400 Body height 162.56 cm No Primary Care Physician [facility] 03-17-2025 20:40-0400 Body mass index (BMI) [Ratio] 31.3 kg/m2 No Primary Care Physician [facility] 03-17-2025 20:40-0400 Body weight 82.8 kg No Primary Care Physician [facility] 03-05-2025 14:20-0400 Body mass index (BMI) [Ratio] 30.04 kg/m2 Marlee Almanza APRN.CNM Work Phone: [facility] 03-05-2025 14:20-0400 Body weight 79.38 kg Marlee Almanza FRUIT COORDINATOR.CNM Work Phone: [facility] 03-05-2025 14:20-0400 Diastolic blood pressure 64 mm[Hg] Marlee Almanza FRUIT COORDINATOR.CNM Work Phone: [facility] 03-05-2025 14:20-0400 Systolic blood pressure 96 mm[Hg] Marlee Almanza FRUIT COORDINATOR.CNM Work Phone: [facility] 02-11-2025 09:13-0400 Body mass index (BMI) [Ratio] 29.87 kg/m2 Marlee Almanza FRUIT COORDINATOR.CNM Work Phone: [facility] 02-11-2025 09:13-0400 Body weight 78.93 kg Marlee Almanza FRUIT COORDINATOR.CNM Work Phone: [facility] 02-11-2025 09:13-0400 Diastolic blood pressure 60 mm[Hg] Marlee Almanza FRUIT COORDINATOR.CNM Work Phone: [facility] 02-11-2025 09:13-0400 Systolic blood pressure 96 mm[Hg] Marlee Almanza FRUIT COORDINATOR.CNM Work Phone: [facility] 01-25-2025 13:32-0400 Body mass index (BMI) [Ratio] 29.87 kg/m2 Marlee Almanza FRUIT COORDINATOR.CNM Work Phone: [facility] 01-25-2025 13:32-0400 Body weight 78.93 kg Marlee Almanza FRUIT COORDINATOR.CNM Work Phone: [facility] 01-25-2025 13:32-0400 Diastolic blood pressure 64 mm[Hg] Marlee Almanza FRUIT COORDINATOR.CNM Work Phone: [facility] 01-25-2025 13:32-0400 Systolic blood pressure 96 mm[Hg] Marlee Almanza FRUIT COORDINATOR.CNM Work Phone: [facility] 12-30-2024 13:06-0400 Body mass index (BMI) [Ratio] 27.42 kg/m2 Marlee Almanza FRUIT COORDINATOR.CNM Work Phone: [facility] 12-30-2024 13:06-0400 Body weight 74.75 kg Marlee Almanza FRUIT COORDINATOR.CNM Work Phone: [facility] 12-30-2024 13:06-0400 Diastolic blood pressure 60 mm[Hg] Marlee Almanza FRUIT COORDINATOR.CNM Work Phone: [facility] 12-30-2024 13:06-0400 Systolic blood pressure 100 mm[Hg] Marlee Archie FRUIT COORDINATOR.CNM Work Phone: [facility] 11-03-2024 14:23-0400 Body mass index (BMI) [Ratio] 24.79 kg/m2 Marlee Archie FRUIT COORDINATOR.CNM Work Phone: [facility] 11-03-2024 14:23-0400 Body weight 67.59 kg Marlee Archie FRUIT COORDINATOR.CNM Work Phone: [facility] 11-03-2024 14:23-0400 Diastolic blood pressure 64 mm[Hg] Marlee Almanza FRUIT COORDINATOR.CNM Work Phone: [facility] 11-03-2024 14:23-0400 Systolic blood pressure 110 mm[Hg] Marlee Almanza FRUIT COORDINATOR.CNM Work Phone: [facility] 10-06-2024 11:19-0400 Body mass index (BMI) [Ratio] 23.46 kg/m2 Marlee Archie FRUIT COORDINATOR.CNM Work Phone: [facility] 10-06-2024 11:19-0400 Body weight 63.96 kg Marlee Archie FRUIT COORDINATOR.CNM Work Phone: [facility] 10-06-2024 11:19-0400 Diastolic blood pressure 68 mm[Hg] Marlee Almanza FRUIT COORDINATOR.CNM Work Phone: [facility] 10-06-2024 11:19-0400 Systolic blood pressure 102 mm[Hg] Marlee Almanza FRUIT COORDINATOR.CNM Work Phone: [facility] 09-08-2024 12:57-0500 Body height 165.1 cm Marlee Almanza FRUIT COORDINATOR.CNM Work Phone: [facility] 09-08-2024 12:57-0500 Body mass index (BMI) [Ratio] 22.8 kg/m2 Marlee Almanza FRUIT COORDINATOR.CNM Work Phone: [facility] 09-08-2024 12:57-0500 Body weight 62.14 kg Marlee Almanza FRUIT COORDINATOR.CNM Work Phone: [facility] 09-08-2024 12:57-0500 Diastolic blood pressure 60 mm[Hg] Marlee Almanza FRUIT COORDINATOR.CNM Work Phone: [facility] 09-08-2024 12:57-0500 Systolic blood pressure 118 mm[Hg] Marlee Almanza FRUIT COORDINATOR.CNM Work Phone: [facility] 09-01-2024 17:49-0500 Body mass index (BMI) [Ratio] 23.08 kg/m2 Arianna Ledger FRUIT COORDINATOR.COMMERCIAL [employer] BUILDING ARCHITECT Work Phone: [facility] 09-01-2024 17:49-0500 Body temperature 99.1 [degF] Arianna Ledger FRUIT COORDINATOR.COMMERCIAL GREEN BUILDING ARCHITECT Work Phone: [facility] 09-01-2024 17:49-0500 Body weight 61 kg Arianna Ledger FRUIT COORDINATOR.COMMERCIAL GREEN BUILDING ARCHITECT Work Phone: [facility] 09-01-2024 17:49-0500 Diastolic blood pressure 71 mm[Hg] Arianna Ledger FRUIT COORDINATOR.COMMERCIAL [employer] BUILDING ARCHITECT Work Phone: [facility] 09-01-2024 17:49-0500 Heart rate 74 /min Arianna Ledger FRUIT COORDINATOR.COMMERCIAL [employer] BUILDING ARCHITECT Work Phone: [facility] 09-01-2024 17:49-0500 Respiratory rate 16 /min Arianna Ledger FRUIT COORDINATOR.COMMERCIAL [employer] BUILDING ARCHITECT Work Phone: [facility] 09-01-2024 17:49-0500 SaO2% (BldA) [Mass fraction] 99 % Arianna Ledger FRUIT COORDINATOR.COMMERCIAL [employer] BUILDING ARCHITECT Work Phone: [facility] 09-01-2024 17:49-0500 Systolic blood pressure 109 mm[Hg] Arianna Millanger FRUIT COORDINATOR.COMMERCIAL [employer]EN BUILDING ARCHITECT Work Phone: [facility] 01-02-2023 12:57-0400 Body height 162.6 cm Marlee Almanza FRUIT COORDINATOR.CNM Work Phone: [facility] 01-02-2023 12:57-0400 Body weight 62.14 kg Marlee Almanza FRUIT COORDINATOR.CNM Work Phone: [facility] 01-02-2023 12:57-0400 Diastolic blood pressure 60 mm[Hg] Marlee Almanza FRUIT COORDINATOR.CNM Work Phone: [facility] 01-02-2023 12:57-0400 Systolic blood pressure 98 mm[Hg] Marlee Almanza FRUIT COORDINATOR.CNM Work Phone: [facility] 12-17-2022 08:52-0400 Body temperature 97.11 [degF] Anjali Valero FRUIT COORDINATOR.COMMER[employer] BUILDING ARCHITECT Work Phone: [facility] 12-17-2022 08:52-0400 Body weight 61.24 kg Anjali Valero FRUIT COORDINATOR.COMMERCIAL [employer] BUILDING ARCHITECT Work Phone: [facility] 12-17-2022 08:52-0400 Diastolic blood pressure 75 mm[Hg] Anjali Valero FRUIT COORDINATOR.COMMERCIAL [employer] BUILDING ARCHITECT Work Phone: [facility] 12-17-2022 08:52-0400 Heart rate 65 /min Anjali Valero APRN.COMMER[employer] BUILDING ARCHITECT Work Phone: [facility] 12-17-2022 08:52-0400 Respiratory rate 18 /min Anjali Valero APRN.COMMER[employer] BUILDING ARCHITECT Work Phone: [facility] 12-17-2022 08:52-0400 SaO2% (BldA) [Mass fraction] 100 % Anjali Valero FRUIT COORDINATOR.COMM[employer] BUILD[employer] ARCHITECT Work Phone: [facility] 12-17-2022 08:52-0400 Systolic blood pressure 114 mm[Hg] Anjali Valero APRN.COMMER[employer] BUILDING ARCHITECT Work Phone: [facility] 08-04-2022 11:27-0500 Body temperature 98.49 [degF] Anne-Marie Chacon APRN.COMMER[employer] BUILDING ARCHITECT Work Phone: [facility] 08-04-2022 11:27-0500 Body weight 56.7 kg Anne-Marie Chacon APRN.COMMER[employer] BUILDING ARCHITECT Work Phone: [facility] 08-04-2022 11:27-0500 Diastolic blood pressure 64 mm[Hg] Anne-Marie Chacon APRN.COMMER[employer] BUILDING ARCHITECT Work Phone: [facility] 08-04-2022 11:27-0500 Heart rate 57 /min Anne-Marie Chacon APRN.COMMER[employer] BUILDING ARCHITECT Work Phone: [facility] 08-04-2022 11:27-0500 Respiratory rate 14 /min Anne-Marie Chacon APRN.COMMER[employer] BUILDING ARCHITECT Work Phone: [facility] 08-04-2022 11:27-0500 SaO2% (BldA) [Mass fraction] 99 % Anne-Marie Chacon APRN.COMMER[employer] BUILD[employer] ARCHITECT Work Phone: [facility] 08-04-2022 11:27-0500 Systolic blood pressure 116 mm[Hg] Anne-Marie Chacon APRN.COMMERCIAL [employer] BUILDING ARCHITECT Work Phone: [facility] [facility] 12-26-2021 11:09-0400 Body weight 60.6 kg Marlee Almanza APRN.CNM Work Phone: [facility] 12-26-2021 11:09-0400 Diastolic blood pressure 60 mm[Hg] Marlee Almanza APRN.CNM Work Phone: [facility] 12-26-2021 11:09-0400 Systolic blood pressure 110 mm[Hg] Marlee Almanza APRN.CNM Work Phone: [facility] 11-18-2021 08:30-0400 Body temperature 97.2 [degF] [facility] Work Phone: 11-18-2021 08:30-0400 Diastolic blood pressure 59 mm[Hg] [facility] Work Phone: 11-18-2021 08:30-0400 Heart rate 62 /min [facility] Work Phone: 11-18-2021 08:30-0400 Respiratory rate 18 /min [facility] Work Phone: 11-18-2021 08:30-0400 Systolic blood pressure 100 mm[Hg] [facility] Work Phone: 11-18-2021 02:30-0400 SaO2% (BldA) [Mass fraction] 97 % [facility] Work Phone: 11-16-2021 22:11-0400 Body height 162.56 cm [facility] Work Phone: 11-16-2021 22:11-0400 Body mass index (BMI) [Ratio] 25.4 kg/m2 [facility] Work Phone: 11-16-2021 22:11-0400 Body weight 67.13 kg [facility] Work Phone: 11-14-2021 11:31-0400 Body weight 67.59 kg Marlee Almanza APRN.CNM Work Phone: [facility] 11-14-2021 11:31-0400 Diastolic blood pressure 62 mm[Hg] Marlee Almanza APRN.CNRuma Work Phone: [facility] 11-14-2021 11:31-0400 Systolic blood pressure 110 mm[Hg] Marlee Almanza APRN.CNM Work Phone: [facility] 11-07-2021 23:33-0400 Body temperature 98 [degF] [facility] Work Phone: 11-07-2021 23:33-0400 Diastolic blood pressure 67 mm[Hg] [facility] Work Phone: 11-07-2021 23:33-0400 Heart rate 57 /min [facility] Work Phone: 11-07-2021 23:33-0400 SaO2% (BldA) [Mass fraction] 98 % [facility] Work Phone: 11-07-2021 23:33-0400 Systolic blood pressure 113 mm[Hg] [facility] Work Phone: 11-07-2021 19:16-0400 Body mass index (BMI) [Ratio] 25.5 kg/m2 [facility] Work Phone: 11-07-2021 19:16-0400 Body weight 67.58 kg [facility] Work Phone: 10-31-2021 14:13-0400 Body weight 65.32 kg Marlee Almanza APRN.CNM Work Phone: [facility] 10-31-2021 14:13-0400 Diastolic blood pressure 56 mm[Hg] Marlee Almanza APRN.CNM Work Phone: [facility] 10-31-2021 14:13-0400 Systolic blood pressure 102 mm[Hg] Marlee Almanza APRN.CNM Work Phone: [facility] 10-25-2021 10:52-0400 Body weight 66.86 kg Erendira Hayes MD Work Phone: [facility] 10-25-2021 10:52-0400 Diastolic blood pressure 64 mm[Hg] Erendira Hayes MD Work Phone: [facility] 10-25-2021 10:52-0400 Systolic blood pressure 118 mm[Hg] Erendira Hayes MD Work Phone: [facility] 10-23-2021 15:45-0400 Body temperature 98.42 [degF] JANICE SUÁREZ MD [facility] 10-23-2021 15:45-0400 Diastolic blood pressure 63 mm[Hg] JANICE SUÁREZ MD [facility] 10-23-2021 15:45-0400 Heart rate 69 /min JANICE SUÁREZ MD [facility] 10-23-2021 15:45-0400 Mean blood pressure 79 mm[Hg] JANICE SUÁREZ MD [facility] 10-23-2021 15:45-0400 Respiratory rate 16 /min JANICE SUÁREZ MD [facility] 10-23-2021 15:45-0400 Systolic blood pressure 110 mm[Hg] JANICE SUÁREZ MD [facility] 10-23-2021 11:27-0400 Body temperature 98.6 [degF] JANICE SUÁREZ MD [facility] 10-23-2021 11:27-0400 Diastolic blood pressure 62 mm[Hg] JANICE SUÁREZ MD [facility] 10-23-2021 11:27-0400 Heart rate 61 /min JANICE SUÁREZ MD [facility] 10-23-2021 11:27-0400 Mean blood pressure 76 mm[Hg] JANICE SUÁREZ MD [facility] 10-23-2021 11:27-0400 Respiratory rate 20 /min JANICE SUÁREZ MD [facility] 10-23-2021 11:27-0400 Systolic blood pressure 103 mm[Hg] JANICE SUÁREZ MD [facility] 10-23-2021 08:00-0400 Body temperature 98.06 [degF] JANICE SUÁREZ MD [facility] 10-23-2021 08:00-0400 Diastolic blood pressure 61 mm[Hg] JANICE SUÁREZ MD [facility] 10-23-2021 08:00-0400 Heart rate 62 /min JANICE SUÁREZ MD [facility] 10-23-2021 08:00-0400 Respiratory rate 17 /min JANICE SUÁREZ MD [facility] 10-23-2021 08:00-0400 Systolic blood pressure 105 mm[Hg] JANICE SUÁREZ MD [facility] 10-22-2021 10:04-0400 Body height 162.6 cm JANICE SUÁREZ MD [facility] 10-22-2021 10:04-0400 Body weight 65 kg JANICE SUÁREZ MD [facility] 10-22-2021 10:04-0400 Body weight 24.59 kg/m2 JANICE SUÁREZ MD [facility] 10-21-2021 00:01-0400 Body height 162.6 cm JANICE SUÁREZ MD [facility] 10-21-2021 00:01-0400 Body weight 65 kg JANICE SUÁREZ MD [facility] 10-21-2021 00:01-0400 Body weight 24.59 kg/m2 JANICE SUÁREZ MD [facility] 10-20-2021 22:30-0400 Body height 162.6 cm JANICE SUÁREZ MD [facility] 10-20-2021 22:30-0400 Body weight 65 kg JANICE SUÁREZ MD [facility] 10-20-2021 22:30-0400 Body weight 24.59 kg/m2 JANICE SUÁREZ MD [facility] 10-18-2021 14:18-0400 Body height 162.6 cm Nelly Shipley MD Work Phone: [facility] 10-18-2021 14:18-0400 Body weight 64.86 kg Nelly Shipley MD Work Phone: [facility] 10-07-2021 17:17-0400 Body height 162.56 cm [facility] Work Phone: 10-07-2021 17:17-0400 Body mass index (BMI) [Ratio] 25.2 kg/m2 [facility] Work Phone: 10-07-2021 17:17-0400 Body weight 66.7 kg [facility] Work Phone: 10-07-2021 17:05-0400 Heart rate 85 /min [facility] Work Phone: 10-07-2021 17:05-0400 SaO2% (BldA) [Mass fraction] 98 % [facility] Work Phone: 10-07-2021 17:04-0400 Diastolic blood pressure 65 mm[Hg] [facility] Work Phone: 10-07-2021 17:04-0400 Systolic blood pressure 111 mm[Hg] [facility] Work Phone: 10-06-2021 17:28-0400 Body height 162.56 cm [facility] Work Phone: 10-06-2021 17:28-0400 Body mass index (BMI) [Ratio] 25 kg/m2 [facility] Work Phone: 10-06-2021 [id number] Body weight 66.3 kg [facility] Work Phone: 10-06-2021 17:11-0400 Body temperature 99.4 [degF] [facility] Work Phone: 10-06-2021 17:11-0400 Diastolic blood pressure 54 mm[Hg] [facility] Work Phone: 10-06-2021 17:11-0400 Heart rate 75 /min [facility] Work Phone: 10-06-2021 17:11-0400 SaO2% (BldA) [Mass fraction] 99 % [facility] Work Phone: 10-06-2021 17:11-0400 Systolic blood pressure 100 mm[Hg] [facility] Work Phone: 10-06-2021 15:46-0400 Body weight 66.22 kg Erendira Hayes MD Work Phone: [facility] 10-06-2021 15:46-0400 Diastolic blood pressure 70 mm[Hg] Erendira Hayes MD Work Phone: [facility] 10-06-2021 15:46-0400 Systolic blood pressure 120 mm[Hg] Erendira Hayes MD Work Phone: [facility] 09-18-2021 16:59-0500 Body height 160 cm GLENN ZAVALA MD [facility] 09-18-2021 16:59-0500 Body weight 64.4 kg GLENN ZAVALA MD [facility] 09-18-2021 16:59-0500 Body weight 25.16 kg/m2 GLENN ZAVALA MD [facility] 09-18-2021 16:57-0500 Diastolic blood pressure 62 mm[Hg] GLENN ZAVALA MD [facility] 09-18-2021 16:57-0500 Heart rate 65 /min GLENN ZAVALA MD [facility] 09-18-2021 16:57-0500 Mean blood pressure 76 mm[Hg] GLENN ZAVALA MD [facility] 09-18-2021 16:57-0500 Respiratory rate 16 /min GLENN ZAVALA MD [facility] 09-18-2021 16:57-0500 Systolic blood pressure 104 mm[Hg] GLENN ZAVALA MD [facility] Encounters Encounter Date Encounter Type Care Provider Facility Start: 03-31-2025 End: 03-31-2025 Chart abstracting Erendira Hayes MD Work Phone: OB/Gynecology Comment on above: Results (Urine Cultu re) Start: 03-30-2025 End: 03-30-2025 ambulatory MARLEE ALMANZA Facility:[facility] [place] Start: 03-29-2025 End: 03-29-2025 ambulatory No Primary [...] Start: 03-16-2025 End: 03-16-2025 Patient encounter procedure Class A [employer] [facility] Work Phone: [facility] Comment on above: Uterine size-date di screpancy, third trimester (HCC) Start: 03-16-2025 End: 03-16-2025 ambulatory MARLEE ALMANZA Facility:[facility] Start: 03-05-2025 End: 03-05-2025 Patient encounter [...] Start: 03-05-2025 End: 03-05-2025 ambulatory WILLA ROGERS Facility:[facility] [place] Start: 02-22-2025 End: 02-22-2025 Patient encounter procedure Marlee Almanza APRN.CNM Work Phone: OB/Gynecology Comment on above: Supervision of high risk in third trimester (HCC) (Primary Dx); 31 weeks gestation of (HCC); HSV-2 seropositive; Anxiety and depression; Antepartum anemia complicating in third trimester (HCC); Heartburn during in third trimester (HCC) Start: 02-22-2025 End: 02-22-2025 ambulatory MARLEE ALMANZA Facility:[facility] [place] Start: 02-19-2025 End: 02-23-2025 ambulatory Marlee Almanza APRN.CNM Work Phone: OB/Gynecology Comment on above: 02/19/25 Start: 02-18-2025 End: 02-19-2025 Emergency department patient visit WILLA Hendrix SUE Facility:[facility] Start: 02-11-2025 End: 02-11-2025 Patient encounter procedure Marlee Almanza APRN.CNM Work Phone: OB/Gynecology Comment on above: Supervision of high risk in third trimester (HCC) (Primary Dx); 30 weeks gestation of (HCC); HSV-2 seropositive; History of depression; Anxiety and depression; Bleeding of eye, left; Antepartum anemia complicating in third trimester (HCC) Start: 02-11-2025 End: 02-11-2025 ambulatory MARLEE ALMANZA Facility:[facility] [place] Start: 02-05-2025 End: 02-05-2025 ambulatory Samaria Haji APRN.COMMERCIAL GREEN BUILDING ARCHITECT Work Phone: Psychiatry Comment on above: Cancel Start: 01-25-2025 End: 01-25-2025 ambulatory SELAM LOUISE Facility:[facility] [place] Start: 01-25-2025 End: 03-27-2025 Follow-up encounter Marlee Almanza APRN.CNRuma Work Phone: OB/Gynecology Start: 01-25-2025 End: 01-25-2025 Patient encounter procedure Marlee Almanza APRN.CNM Work Phone: OB/Gynecology Comment on above: Supervision of high risk in second trimester (HCC) (Primary Dx); 27 weeks gestation of (HCC); Bleeding of eye, left Conjunctival hemorrh age of left eye (Primary Dx) Start: 01-25-2025 End: 01-25-2025 ambulatory MARLEE ALMANZA Facility:[facility] [place] Start: 01-17-2025 End: 01-18-2025 ambulatory DENISE REICH Facility:[id number] Start: 12-30-2024 End: 12-30-2024 Patient encounter procedure Marlee Archie EAST.SEBASTIAN Work Phone: OB/Gynecology Comment on above: Screening for diabet es mellitus (Primary Dx); 23 weeks gestation of (HCC); Supervision of high risk in second trimester (HCC); Heartburn Start: 12-30-2024 End: 12-30-2024 ambulatory MARLEE ARCHIE Facility:[facility] [place] Start: 12-01-2024 End: 12-01-2024 ambulatory [facility] Facility:[facility] [place] Start: 11-12-2024 End: 11-12-2024 [facility] Samaria Haji APRN.COMMERCIAL GREEN BUILDING ARCHITECT Work Phone: Psychiatry Comment on above: GUIDO (generalized anx iety disorder) (Primary Dx); Encounter for long-term (current) use of medications; Recurrent major depressive disorder, in partial remission; Psychosocial stressors Start: 11-12-2024 ambulatory SAMARIA HAJI Facilit y:[facility] [place] Start: 11-03-2024 End: 11-03-2024 Patient encounter procedure [...] Start: 10-30-2024 End: 10-30-2024 ambulatory Samaria Haji APRN.BROOKE Work Phone: Psychiatry Comment on above: NO SHOW (Primary Dx) Start: 10-30-2024 End: 10-30-2024 Telemedicine consultation with patient Samaria Haji APRN.BROOKE Work Phone: Psychiatry Start: 10-12-2024 End: 12-12-2024 Follow-up encounter Ole Simmons MD Work Phone: OB/Gynecology Start: 10-06-2024 End: 10-06-2024 ambulatory MARLEE ALMANZA Facility:[facility] [place] Start: 10-06-2024 End: 10-06-2024 ambulatory MARLEE ALMANZA Facility:[facility] [place] Start: 10-06-2024 End: 10-06-2024 Patient encounter procedure Marleedeondre Almanza FRUIT COORDINATOR.CNM Work Phone: OB/Gynecology Comment on above: Supervision of high risk , antepartum (Primary Dx); Herpes simplex virus (HSV) infection; Anxiety and depression; 11 weeks gestation of Encounter for anatomic survey (Primary Dx); History of labor; 11 weeks gestation of Start: 10-05-2024 End: 10-05-2024 ambulatory MARLEE ALMANZA Facility:[id number] Start: 09-16-2024 End: 09-16-2024 ambulatory SAMARIA HAJI Facility:[facility] [place] Start: 09-16-2024 End: 09-16-2024 Patient encounter procedure Samaria Haji FRUIT COORDINATOR.COMMERCIAL [employer] BUILDING ARCHITECT Work Phone: Psychiatry Comment on above: APPOINTMENT CANCELLE D (Primary Dx) Start: 09-16-2024 End: 09-16-2024 Telemedicine consultation with patient Samaria Haji APRN.COMMERCIAL GREEN BUILDING ARCHITECT Work Phone: Psychiatry Start: 09-16-2024 End: 09-16-2024 Telephone encounter Samaria Haji APRN.COMMERCIAL GREEN BUILDING ARCHITECT Work Phone: Psychiatry Start: 09-15-2024 End: 09-15-2024 Telephone encounter Samaria Haji FRUIT COORDINATOR.COMMERCIAL GREEN BUILDING ARCHITECT Work Phone: Psychiatry Start: 09-11-2024 End: 09-16-2024 ambulatory Samaria Haji FRUIT COORDINATOR.COMMERCIAL GREEN BUILDING ARCHITECT Work Phone: Psychiatry Comment on above: Wellbutrin Start: 09-08-2024 End: 09-08-2024 ambulatory MARLEEDEONDRE ALMANZA Facility:[facility] [place] Start: 09-08-2024 End: 09-08-2024 Patient encounter procedure Marlee Almanza FRUIT COORDINATOR.CNM Work Phone: OB/Gynecology Comment on above: Supervision of high risk , antepartum (Primary Dx); 7 weeks gestation of ; Screen for STD (sexually transmitted disease); History of labor; Herpes simplex virus (HSV) infection; History of depression; Anxiety and depression; Family history of [place]s disease; GUIDO (generalized anxiety disorder); HSV-2 seropositive; Family history of defects Start: 09-05-2024 End: 09-05-2024 ambulatory SHERITA MADDOX Facility:[id number] Start: 09-02-2024 End: 09-02-2024 Emergency department patient visit WILLA KOVACSOMBS Facility:[id number] Start: 09-01-2024 End: 09-01-2024 ambulatory ARIANNA MELI Facility:[id number] Start: 09-01-2024 End: 09-01-2024 Patient encounter procedure Arianna Bynum APRN.CNP Work Phone: [facility] Comment on above: Nausea and vomiting, unspecified vomiting type (Primary Dx); Dizzy; Viral illness Start: 08-28-2024 End: 08-28-2024 ambulatory SAMARIA HAJI Facility:[facility] [place] Start: 08-28-2024 End: 08-28-2024 [facility] Samaria Haji APRN.CNP Work Phone: Psychiatry [...] Start: 05-04-2024 End: 05-04-2024 ambulatory SAMARIA HAJI Facility:[facility] [place] Start: 05-04-2024 End: 05-04-2024 [facility] Samaria Haji APRN.CNP Work Phone: Psychiatry Comment on above: GUIDO (generalized anx iety disorder) (Primary Dx); Moderate episode of recurrent major depressive disorder (HCC); Apathy; Medication side effect, initial encounter; Encounter for long-term (current) use of medications Start: 03-06-2024 End: 03-06-2024 Telephone encounter Anne-Marie Roldan MD Work Phone: OB/Gynecology Comment on above: Vaginal Problem Start: 01-31-2024 End: 01-31-2024 [facility] Samaria Haji APRN.COMMERCIAL GREEN BUILDING ARCHITECT Work Phone: Psychiatry Comment on above: Recurrent major depr essive disorder, in partial remission (HCC) (Primary Dx); GUIDO (generalized anxiety disorder); Grief reaction Start: 01-17-2024 ambulatory Samaria bryant FRUIT COORDINATOR.COMMERCIAL GRE[employer] BUILDING ARCHITECT Work Phone: Psychiatry Comment on above: Cancellation Start: 01-17-2024 End: 01-17-2024 Patient encounter procedure Samaria Haji APRN.COMMERCIAL GREEN BUILDING ARCHITECT Work Phone: Psychiatry Comment on above: APPOINTMENT CANCELLE D (Primary Dx) Start: 01-17-2024 End: 01-17-2024 Telemedicine consultation with patient Samaria Haji APRN.CNP Work Phone: Psychiatry Start: 12-18-2023 ambulatory Marlee Almanza APRN.CNM Work Phone: OB/Gynecology Comment on above: Blood work Start: 11-06-2023 Telephone encounter Marlee wright APRN.CNRuma Work Phone: OB/Gynecology Comment on above: Irregular Menstrual Cycle (/) Start: 11-01-2023 End: 11-01-2023 [facility] Samaria Haji APRN.COMMERCIAL GREEN BUILDING ARCHITECT Work Phone: Psychiatry Comment on above: Recurrent major depr essive disorder, in partial remission (HCC) (Primary Dx); GUIDO (generalized anxiety disorder); Grief reaction Start: 10-23-2023 ambulatory Samaria bryant APRN.COMMERCIAL GREEN BUILDING ARCHITECT Work Phone: Psychiatry Comment on above: Marzena Pickering Start: 09-30-2023 End: 09-30-2023 Patient encounter procedure Sherita Mejia PA-C Work Phone: [facility] Comment on above: Neoplasm of unspecif ied behavior of bone, soft tissue, and skin (Primary Dx); Family history of melanoma Start: 08-26-2023 End: 08-26-2023 [facility] Supriya Valdovinos [facility] Integrative and Lifestyle Medicine Comment on above: Moderate episode of recurrent major depressive disorder (HCC); GUIDO (generalized anxiety disorder) Start: 04-04-2023 End: 04-04-2023 [facility] Samaria Haji APRN.COMMERCIAL GREEN BUILDING ARCHITECT Work Phone: Psychiatry Comment on above: GUIDO (generalized anx iety disorder) (Primary Dx); Moderate episode of recurrent major depressive disorder (HCC) Start: 03-08-2023 End: 03-08-2023 [facility] Samaria Haji APRN.COMMERCIAL GREEN BUILDING ARCHITECT Work Phone: Psychiatry Comment on above: GUIDO (generalized anx iety disorder) (Primary Dx) Start: 03-07-2023 End: 03-07-2023 Patient encounter procedure Samaria Haji APRN.CNP Work Phone: Psychiatry Comment on above: APPOINTMENT CANCELLE D (Primary Dx) Start: 03-07-2023 End: 03-07-2023 Telemedicine consultation with patient Samaria Haji APRN.COMMERCIAL GREEN BUILDING ARCHITECT Work Phone: [facility] Start: 01-02-2023 End: [...] OB/Gynecology Start: 12-17-2022 Telephone encounter No Pcp [facility] Comment on above: Medication Problem Start: 12-17-2022 ambulatory FC-ANJALI VALERO Facility:[facility] Start: 12-17-2022 End: 12-17-2022 Subsequent hospital visit by physician Provider [facility] Start: 12-17-2022 End: 12-17-2022 Patient encounter procedure Anjali Valero FRUIT COORDINATOR.COMMERCIAL GREEN BUILDING ARCHITECT Work Phone: [facility] Comment on above: Pharyngitis, unspeci fied etiology (Primary Dx); Sore throat; Acute bacterial conjunctivitis of both eyes Start: 11-20-2022 End: 11-20-2022 [facility] Samaria Haji APRN.COMMERCIAL GREEN BUILDING ARCHITECT Work Phone: Psychiatry Comment on above: GUIDO (generalized anx iety disorder) (Primary Dx) Start: 11-02-2022 End: 11-02-2022 [facility] Samaria Haji FRUIT COORDINATOR.COMMERCIAL GREEN BUILDING ARCHITECT Work Phone: Psychiatry Comment on above: GUIDO (generalized anx iety disorder) (Primary Dx) Start: 10-15-2022 ambulatory Marlee Archie EAST.SARITAM Work Phone: OB/Gynecology Comment on above: Questions Start: 10-09-2022 Telephone encounter Ole acuna FRUIT COORDINATOR.COMMERCIAL GREEN BUILDING ARCHITECT Work Phone: Occupational Health Comment on above: [facility] Start: 10-08-2022 Telephone encounter Krystal jerome PA-C Work Phone: Occupational Health Comment on above: [facility] Start: 10-04-2022 Telephone encounter Agueda bell MD Work Phone: Occupational Health Comment on above: [facility] Start: 08-04-2022 End: 08-04-2022 Patient encounter procedure Anne-Marie Chacon APRN.COMMERCIAL GREEN BUILDING ARCHITECT Work Phone: [facility] Comment on above: Viral URI [...] 11-23-2021 ambulatory Marlee Almanza APRN.CNM Work Phone: [facility] Start: 11-23-2021 Patient encounter procedure Marlee Almanza APRN.CNM Work Phone: OB/Gynecology Comment on above: Appointment Start: 11-16-2021 End: 11-18-2021 [facility] Start: 11-14-2021 End: 11-14-2021 Patient encounter procedure Marlee Almanza APRN.CNM Work Phone: OB/Gynecology Comment on above: 36 weeks gestation o f (Primary Dx); Uterine size-date discrepancy, third trimester Start: 11-07-2021 End: 11-08-2021 [facility] Start: 10-31-2021 End: 10-31-2021 Patient encounter procedure Marlee Almanza APRN.CNM Work Phone: OB/Gynecology Comment on above: 34 weeks gestation o f (Primary Dx) Start: 10-28-2021 End: 10-28-2021 Subsequent hospital visit by physician Provider [facility] Comment on above: OB CHECK 34 WEEKS [...] Start: 10-23-2021 ambulatory Erendira Andres Work Phone: [facility] Start: 10-23-2021 Patient encounter procedure Erendira Hayes MD Work Phone: OB/Gynecology Comment on above: Appointment Start: 10-23-2021 Telephone encounter Erendira zepeda MD Work Phone: OB/Gynecology Comment on above: Patient Update Start: 10-21-2021 End: 10-23-2021 Evaluation and management of inpatient DR. JANICE SUÁREZ MD. Facility:[facility] Start: 10-20-2021 End: 10-23-2021 Evaluation and management of inpatient JANICE SUÁREZ MD [facility] Start: 10-20-2021 ambulatory Marlee Almanza APRN.CNM Work Phone: OB/Gynecology Comment on above: Forgot to schedule Start: 10-18-2021 End: 10-18-2021 Patient encounter procedure Nelly Shipley MD Work Phone: Maternal Medicine Comment on above: Uterine size date di screpancy, third trimester (Primary Dx); 32 weeks gestation of Start: 10-07-2021 End: 10-07-2021 [facility] Start: 10-06-2021 End: 10-06-2021 Patient encounter procedure Erendira Hayes MD Work Phone: OB/Gynecology Comment on above: 31 weeks gestation o f (Primary Dx); Short interval between pregnancies affecting , antepartum; Pelvic pain during ; Supervision of other normal , antepartum Start: 09-18-2021 End: 09-18-2021 ambulatory GLENN ZAVALA MD Facility:[facility] Start: 09-18-2021 End: 09-18-2021 SAME DAY STAY GLENN ZAVALA MD [facility] Start: 04-25-2021 Patient encounter procedure Bradford Mario DO Work Phone: [facility] Start: 04-25-2021 Progress Note Bradford Liao Work Phone: [facility] Start: 04-13-2021 End: 12-26-2021 Patient requested procedure Erendira Hayes MD Work Phone: [facility] Work Phone: Procedures Date Procedure Procedure [...] Speci men Type: BLOOD SPECIMEN Ordering Facility: [facility] Address: [address] [place] [address] Performed By: #### T SPN #### [facility] CLIA [id number] [place] [address] [place] Start: 09-08-2024 BACTERIAL VAGINOSIS NAAT Marlee Almanza FRUIT COORDINATOR.CNM Work Phone: Start: 09-08-2024 Iadna chlamydia trac homatis amplified probe tq Mralee Almanza FRUIT COORDINATOR.CNM Work Phone: Start: 09-08-2024 Us uterus l imited 1/ fetuses Marlee Almanza FRUIT COORDINATOR.CNM Work Phone: Start: 01-02-2023 Iadna trichomonas va ginalis amplified probe tech Marlee Almanza FRUIT COORDINATOR.CNM Work Phone: Start: 12-17-2022 Throat culture Anjali syed FRUIT COORDINATOR.COMMERCIAL GREEN BUILDING ARCHITECT Work Phone: Start: 12-17-2022 RAPID STREP TEST B/O Shyam Bynum FRUIT COORDINATOR.COMMERCIAL [employer]EN BUILDING ARCHITECT Work Phone: Start: 11-14-2021 URINE OB DIP B/O Maria R Almanza FRUIT COORDINATOR.CNM Work Phone: Start: 11-08-2021 Urine culture Start: 10-31-2021 URINE OB DIP B/O Maria R Almanza FRUIT COORDINATOR.CNM Work Phone: Start: 10-28-2021 AMNISURE ROM (UNION) [...] RSV Vaccine (1 - 1-dose 75+ series) [facility] Start: 09-16-2031 Urine microalbumin profile [facility] Start: 01-03-2028 HPV TESTING HPV TESTING [facility] Start: 01-03-2028 PAP TESTING PAP TESTING [facility] Start: 01-03-2028 Screening for malign ant neoplasm of cervix [facility] Start: 02-07-2026 HPV TESTING HPV TESTING [facility] Start: 02-07-2026 PAP TESTING PAP TESTING [facility] Start: 2025 End: 2025 Patient encounter procedure 2025 3:15 PM EDT Routine Office Visit OB/Gynecology [address] [place] [address] Marlee Almanza APRN.CN [address] [place] [address] Ob OB/Gynecology Comment on above: Ob Start: 03-30-2025 End: 03-30-2025 Patient encounter procedure 03/30/2025 10:00 AM EDT Routine Office Visit OB/Gynecology [address] [place] [address] Marlee Almanza APRN.CNM [address] [place] [address] Growth OB/Gynecology Comment on above: Growth Start: 03-29-2025 Bacteria identified in Urine by Culture Urine Culture [facility] Start: 03-29-2025 Group B Streptococcu s Culture Group B Streptococcus Culture [facility] Start: 03-29-2025 [facility] Start: 03-29-2025 Nonstress test [facility] Start: 03-29-2025 Obstetric monitoring [facility] Start: 03-29-2025 Vital signs measurements [facility] Start: 03-29-2025 [facility] Start: 03-29-2025 Catheterization of vein [facility] Start: 03-29-2025 Patient discharge [facility] Start: 03-22-2025 End: 03-22-2025 Patient encounter procedure 03/22/2025 11:15 AM EDT Routine Office Visit OB/Gynecology [address] [place] [address] Marlee Almanza APRN.CN [address] [place] [address] Growth OB/Gynecology Comment on above: Growth Start: 03-17-2025 Nonstress test [facility] Start: 03-17-2025 Obstetric monitoring [facility] Start: 03-17-2025 Vital signs measurements [facility] Start: 03-17-2025 [facility] Start: 03-17-2025 Patient discharge [facility] Start: 03-16-2025 End: 03-16-2025 Patient encounter procedure 03/16/2025 11:00 AM EDT Routine Office Visit [facility] General Maternal Medicine [address] [facility] [address] [place] [address] Growth [facility] General Maternal Medicine Comment on above: Growth Start: 03-15-2025 Influenza vaccination [facility] Start: 03-15-2025 RSV Vaccine (1 - Ris k 1-dose series) RSV Vaccine (1 - Risk 1-dose series) [facility] Start: 03-05-2025 End: 03-05-2025 Patient encounter procedure 03/05/2025 2:30 PM EDT Routine Office Visit OB/Gynecology [address] [place] [address] Marlee Almanza APRN.CNM [address] [place] [address] OB OB/Gynecology Comment on above: OB Start: 03-05-2025 End: 03-05-2026 OBSTETRIC ULTRASOUND WHI OBSTETRIC ULTRASOUND WHI Anc Imaging Routine Uterine size-date discrepancy, third trimester (HCC) Expected: 03/05/2025, Expires: 03/05/2026 [facility] Work Phone: Comment on above: Expected: 03/05/2025 , Expires: 03/05/2026 Start: 02-22-2025 End: 05-23-2025 ANEMIA REFLEX PANEL [facility] Work Phone: Comment on above: Expected: 02/22/2025 , Expires: 05/23/2025 Start: 02-22-2025 End: 02-22-2025 Patient encounter procedure 02/22/2025 1:30 PM EDT Routine Office Visit OB/Gynecology [address] [place] [address] Marlee Almanza APRN.CNM [address] [place] [address] OB, ok per [facility] OB/Gynecology Comment on above: OB, ok per [facility] Start: 02-11-2025 End: 02-11-2025 Patient encounter procedure 02/11/2025 9:15 AM EDT Routine Office Visit OB/Gynecology [address] [place] [address] Marlee Almanza APRN.CNRuma [address] [place] [address] OB OB/Gynecology Comment on above: OB Start: 02-05-2025 End: 02-05-2025 ambulatory 02/05/2025 11:30 AM EDT [facility] Psychiatry [address] [place] [phone] Samaria Haij, FRUIT COORDINATOR.COMMERCIAL GREEN BUILDING ARCHITECT [address] [place] [id number] Psychiatry Start: 01-29-2025 End: 04-30-2025 ANEMIA REFLEX PANEL ANEMIA REFLEX PANEL Lab Routine 23 weeks gestation of ([facility]) Supervision of high risk in second trimester ([facility]) Expected: 01/29/2025 (Approximate), Expires: 04/30/2025 [facility] Comment on above: Expected: 01/29/2025 (Approximate), Expires: 04/30/2025 Start: 01-29-2025 End: 12-30-2025 GESTATIONAL GLUCOSE SCREEN, 1-HOUR, 50 GRAM, NON-FASTING GESTATIONAL GLUCOSE SCREEN, 1-HOUR, 50 GRAM, NON-FASTING Lab Routine Screening for diabetes mellitus Expected: 01/29/2025 (Approximate), Expires: 12/30/2025 [facility] Work Phone: Comment on above: Expected: 01/29/2025 (Approximate), Expires: 12/30/2025 Start: 01-29-2025 End: 12-30-2025 SYPHILIS TREPONEMAL W/REFLEX SYPHILIS TREPONEMAL W/REFLEX Lab Routine 23 weeks gestation of ([facility]) Supervision of high risk in second trimester ([facility]) Expected: 01/29/2025 (Approximate), Expires: 12/30/2025 [facility] Comment on above: Expected: 01/29/2025 (Approximate), Expires: 12/30/2025 Start: 01-25-2025 End: 01-25-2025 Patient encounter procedure 01/25/2025 1:45 PM EDT Routine Office Visit OB/Gynecology [address] [place] [id number] Marlee Almanza APRN.CNM [address] [place] [id number] OB OB/Gynecology Comment on above: OB Start: 12-30-2024 End: 12-30-2024 Patient encounter procedure 12/30/2024 1:15 PM EDT Routine Office Visit OB/Gynecology [address] [place] [address] Marlee Almanza APRN.CN [address] [place] [address] OB OB/Gynecology Comment on above: OB Start: 12-01-2024 End: 12-01-2024 Patient encounter procedure Maternal Medicine Comment on above: Anatomy Scan OB Routine Start: 11-12-2024 End: 11-12-2024 Distance Health 11/12/2024 11:00 AM EDT [facility] Psychiatry [address] [place] [phone] Samaria Haji, FRUIT COORDINATOR.COMMERCIAL [employer] BUILDING ARCHITECT [address] [place] [address] Provider Ordered Follow Up Psychiatry Comment on above: Provider Ordered Fol low Up Start: 11-03-2024 End: 11-03-2024 Patient encounter procedure Maternal Medicine Comment on above: CL check US 16w OB Routine Start: 10-30-2024 End: 10-30-2024 Follow-up encounter 10/30/2024 2:30 PM EDT [facility] Psychiatry [address] [place] [phone] Samaria Haji, FRUIT COORDINATOR.COMMERCIAL GREEN BUILDING ARCHITECT [address] [place] [phone] 2 month follow up Psychiatry Comment on above: 2 month follow up Start: 10-06-2024 End: 01-05-2025 Chromosome 21 trisomy [Presence] in Blood or Tissue by Cytogenetics [facility] Work Phone: Comment on above: Expected: 10/06/2024 , Expires: 01/05/2025 Start: 10-06-2024 End: 10-06-2024 Patient encounter procedure Maternal Medicine Comment on above: Nuchal OB Routine Start: 09-16-2024 End: 09-16-2024 Distance Health 09/16/2024 4:30 PM EST [facility] Psychiatry [address] [place] [address] Samaria Haji, FRUIT COORDINATOR.COMMERCIAL GREEN BUILDING ARCHITECT [address] [place] [address] PROVIDER ORDERED FOLLOW UP TO DISCUSS MEDICATION Psychiatry Comment on above: PROVIDER ORDERED FOL LOW UP TO DISCUSS MEDICATION Start: 09-08-2024 End: 12-08-2024 ANEMIA REFLEX PANEL ANEMIA REFLEX PANEL Lab Routine 7 weeks gestation of Expected: 09/08/2024, Expires: 12/08/2024 [facility] Work Phone: Comment on above: Expected: 09/08/2024 , Expires: 12/08/2024 Start: 09-08-2024 End: 12-08-2024 Hemoglobin A1c in Blood HEMOGLOBIN A1C Lab Routine 7 weeks gestation of Expected: 09/08/2024, Expires: 12/08/2024 [facility] Comment on above: Expected: 09/08/2024 , Expires: 12/08/2024 Start: 09-08-2024 End: 12-08-2024 Hepatitis B virus surface Ag [Presence] in Serum HEPATITIS B SURFACE ANTIGEN Lab Routine 7 weeks gestation of Expected: 09/08/2024, Expires: 12/08/2024 [facility] Comment on above: Expected: 09/08/2024 , Expires: 12/08/2024 Start: 09-08-2024 End: 12-08-2024 Hepatitis C virus Ab [Presence] in Serum HEPATITIS C ANTIBODY IA WITH CONFIRMATION Lab Routine 7 weeks gestation of Expected: 09/08/2024, Expires: 12/08/2024 [facility] Comment on above: Expected: 09/08/2024 , Expires: 12/08/2024 Start: 09-08-2024 End: 12-08-2024 HIV 1+2 Ab [Presence] in Serum or Plasma by Immunoassay HIV 1/2 COMBO WITH REFLEX TO DIFFERENTIATION Lab Routine 7 weeks gestation of Expected: 09/08/2024, Expires: 12/08/2024 [facility] Comment on above: Expected: 09/08/2024 , Expires: 12/08/2024 Start: 09-08-2024 End: 09-08-2025 OBSTETRIC ULTRASOUND WHI OBSTETRIC ULTRASOUND WHI Anc Imaging Routine 7 weeks gestation of Expected: 09/08/2024, Expires: 09/08/2025 [facility] Comment on above: Expected: 09/08/2024 , Expires: 09/08/2025 Start: 09-08-2024 End: 12-08-2024 RUBELLA IGG ANTIBODY RUBELLA IGG ANTIBODY Lab Routine 7 weeks gestation of Expected: 09/08/2024, Expires: 12/08/2024 [facility] Comment on above: Expected: 09/08/2024 , Expires: 12/08/2024 Start: 09-08-2024 End: 12-08-2024 SYPHILIS TREPONEMAL W/REFLEX SYPHILIS TREPONEMAL W/REFLEX Lab Routine 7 weeks gestation of Expected: 09/08/2024, Expires: 12/08/2024 [facility] Comment on above: Expected: 09/08/2024 , Expires: 12/08/2024 Start: 09-08-2024 End: 12-08-2024 TYPE + SCREEN TYPE + SCREEN Blood Bank Routine 7 weeks gestation of Expected: 09/08/2024, Expires: 12/08/2024 [facility] Comment on above: Expected: 09/08/2024 , Expires: 12/08/2024 Start: 09-08-2024 End: 09-08-2024 Patient encounter procedure 09/08/2024 1:00 PM EST Initial Office Visit OB/Gynecology [address] [place] [address] Marlee Almanza APRN.CN [address] [place] [address] New OB LMP 1/2 OB/Gynecology Comment on above: New OB LMP 1/2 Start: 08-28-2024 End: 08-28-2024 Telephone follow-up 08/28/2024 2:30 PM EST [facility] Psychiatry [address] [place] [phone] Samaria Haji, FRUIT COORDINATOR.COMMERCIAL GREEN BUILDING ARCHITECT [address] [place] [address] follow up-see phone note 08/14 Psychiatry Comment on above: follow up-see phone note 08/14 Start: 07-13-2024 End: 07-13-2024 Follow-up encounter 07/13/2024 1:00 PM EST [facility] Psych[facility] [address] [place] [phone] Samaria Haji, FRUIT COORDINATOR.COMMERCIAL GREEN BUILDING ARCHITECT [address] [place] [address] 2 month follow up Psychiatry Comment on above: 2 month follow up Start: 05-04-2024 End: 05-04-2024 Follow-up encounter 05/04/2024 1:30 PM EDT [facility] Psychiatry [address] [place] [phone] Samaria Haji, FRUIT COORDINATOR.COMMERCIAL GREEN BUILDING ARCHITECT [address] [place] [id number] follow up 3 month Psychiatry Comment on above: follow up 3 month Start: 03-15-2024 Covid-19 Vaccine ( season) Covid-19 Vaccine ( season) [facility] Start: 03-15-2024 Influenza vaccination Influenza Vacc ine (#1) [facility] Start: 02-08-2024 PAP TESTING PAP TESTING [facility] Start: 01-31-2024 End: 01-31-2024 ambulatory 01/31/2024 1:30 PM EDT [facility] Psychiatry [address] [place] [phone] Samaria Haji, FRUIT COORDINATOR.COMMERCIAL GREEN BUILDING ARCHITECT [address] [place] [phone] 2-3 month F/U Psychiatry Comment on above: 2-3 month F/U Start: 01-17-2024 End: 01-17-2024 Follow-up encounter 01/17/2024 9:30 AM EDT [facility] Psychiatry [address] [place] [id number] Samaria Haji, FRUIT COORDINATOR.COMMERCIAL GREEN BUILDING ARCHITECT [address] [place] [id number] 2 TO 3 MONTH FOLLOW UP Psychiatry Comment on above: 2 TO 3 MONTH FOLLOW UP Start: 01-03-2024 Screening for malign ant neoplasm of cervix Cervical Cancer Screening [facility] Start: 11-29-2023 End: 11-29-2023 Patient encounter procedure Radiology Comment on above: Pelvic U/S Irregular bleeding Start: 11-26-2023 End: 11-26-2023 Patient encounter procedure 11/26/2023 4:20 PM EDT Office Visit [facility] Dermatology [address] [place] [address] [place] [id number] Sherita Mejia PA-C [address] [place] [address] [place] [address] full skin check [facility] Derm[facility] Comment on above: full skin check Start: 07-15-2023 [facility] Start: 03-15-2023 Covid-19 Vaccine ( season) Covid-19 Vaccine ( season) [facility] Start: 03-15-2023 Influenza vaccination [facility] Start: 10-04-2022 End: 10-18-2022 SARS-CoV-2 (COVID-19) RNA [Presence] in Respiratory specimen by NIGHAT with probe detection CAREGIVER COVID19 Microbiology Routine Suspected 2019 novel coronavirus infection Expected: 10/04/2022, Expires: 10/18/2022 [facility] Work Phone: Comment on above: Expected: 10/04/2022 , Expires: 10/18/2022 Start: 07-15-2022 DEPRESSION ASSESSMENT DEPRESSION ASS ESSMENT [facility] Start: 03-15-2022 Influenza vaccination INFLUENZA (#1) [facility] Start: 11-07-2021 Iv infusion hydratio n each additional hour HYDRATE IV INFUSION ADD-ON [facility] Work Phone: Start: 11-07-2021 Iv infusion hydratio n initial 31 min-1 hour HYDRATION IV INFUSION INIT [facility] Work Phone: Start: 10-07-2021 Group B Streptococcu s Culture Group B Streptococcus Culture [facility] Work Phone: Start: 10-06-2021 Bacteria identified in Urine by Culture Urine Culture [facility] Work Phone: Start: 10-06-2021 Urine culture Urine Culture [facility] Work Phone: Start: 08-14-2021 Adult depression screening assessment DEPRESSION SCREENING [facility] Start: 07-15-2021 DEPRESSION ASSESSMENT DEPRESSION ASS ESSMENT [facility] Start: 03-27-2011 HPV VACCINE (2 - 3-d ose series) HPV VACCINE (2 - 3-dose series) [facility] Start: 2010 Depression Screening Depression Scre ening [facility] Start: 1997 COVID-19 VACCINE (#1) COVID-19 VACCI NE (#1) [facility] Start: 1997 COVID-19 VACCINE (1) COVID-19 VACCIN E (1) [facility] Start: 1992 COVID-19 VACCINE (#1) COVID-19 VACCI NE (#1) [facility] Bacteria identified in Throat by Culture THROAT CULTURE Microbiology Routine Sore throat Ordered: 12/17/2022 [facility] Work Phone: Comment on above: Ordered: 12/17/2022 BACTERIAL VAGINOSIS NAAT BACTERI AL VAGINOSIS NAAT Lab Routine Encounter for gynecological examination (general) (routine) without abnormal findings Vaginal discharge 01/02/2023 1:48 PM EDT [facility] Work Phone: Beta-hemolytic Streptococcus culture [facility] Chlamydia trachomatis+Neisseria gonorrhoeae DNA [Presence] in Unspecified specimen by NIGHAT with probe detection GONORRHEA/CHLAMYDIA NAAT Lab Routine Encounter for gynecological examination (general) (routine) without abnormal findings Vaginal discharge Screening examination for STD (sexually transmitted disease) 01/02/2023 1:48 PM EDT [facility] Work Phone: OBSTETRIC ULTRASOUND WHI OBSTETR IC ULTRASOUND WHI Anc Imaging Routine 36 weeks gestation of Uterine size-date discrepancy, third trimester Ordered: 11/14/2021 [facility] Work Phone: Comment on above: Ordered: 11/14/2021 End: 09-08-2025 OBSTETRIC ULTRASOUND WHI OBSTETRIC ULTRASOUND WHI Anc Imaging Routine 7 weeks gestation of History of labor Every other week for 4 Occurrences starting 09/08/2024 until 09/08/2025 [facility] Comment on above: Every other week for 4 Occurrences starting 09/08/2024 until 09/08/2025 PAP TEST PAP TEST Lab Kurt jacobs Atypical squamous cells of undetermined significance (ASCUS) on Papanicolaou smear of cervix 01/02/2023 1:48 PM EDT [facility] Work Phone: Patient Education Kick Counts ED False Labor OB Triage: Return to Hospital or Notify Physician if you Experience: [facility] Work Phone: Patient referral [facility] Work Phone: ROUTINE, GR OUP B STREP PCR ROUTINE, GROUP B STREP PCR Microbiology Routine 36 weeks gestation of 11/14/2021 12:25 PM EDT [facility] Work Phone: SURGICAL PATHOLOGY SURGICAL PATH OLOGY Lab Routine Neoplasm of unspecified behavior of bone, soft tissue, and skin 09/30/2023 3:57 PM EDT [facility] Work Phone: Urine culture [facility] End: 12-05-2024 US Pelvis transvaginal US FEMALE PELVIS TRANSVAG Radiology Routine Abnormal uterine bleeding (AUB) 1 Occurrences starting 11/06/2023 until 12/05/2024 [facility] Work Phone: Comment on above: 1 Occurrences starti ng 11/06/2023 until 12/05/2024 [facility] Immunizations Immunization Date Immunization Notes Care Provider Casi ricci 05-02-2023 influenza virus vaccine, unspecified formulation Supriya Valdovinos [facility] 09-15-2021 tetanus toxoid, redu krupa diphtheria toxoid, and acellular pertussis vaccine, adsorbed Erendira Hayes MD Work Phone: [facility] 04-20-2021 influenza virus vaccine, unspecified formulation Samaria Haji APRN.CNP Work Phone: [facility] 10-25-2020 tetanus toxoid, redu krupa diphtheria toxoid, and acellular pertussis vaccine, adsorbed Erendira Hayes MD Work Phone: [facility] Work Phone: 04-03-2019 influenza, injectabl e, quadrivalent, preservative free Erendira Hayes MD Work Phone: [facility] Work Phone: 03-31-2018 influenza, injectabl e, quadrivalent, preservative free Erendira Hayes MD Work Phone: [facility] Work Phone: 12-19-2017 hepatitis A and hepatitis B vaccine Erendira Hayes MD Work Phone: [facility] Work Phone: 12-19-2017 tetanus toxoid, redu krupa diphtheria toxoid, and acellular pertussis vaccine, adsorbed Erendira Hayes MD Work Phone: [facility] Work Phone: 10-22-2017 hepatitis A and hepatitis B vaccine Erendira Hayes MD Work Phone: [facility] Work Phone: 08-01-2017 influenza, injectabl e, quadrivalent, preservative free Erendira Hayes MD Work Phone: [facility] Work Phone: 05-13-2014 influenza, high dose seasonal, preservative-free Erendira Hayes MD Work Phone: [facility] 02-27-2011 hepatitis B vaccine, pediatric or pediatric/adolescent dosage Erendira Hayes MD Work Phone: [facility] Work Phone: 02-27-2011 human papilloma viru s vaccine, quadrivalent Erendira Hayes MD Work Phone: [facility] Work Phone: 04-03-2005 measles, mumps and rubella virus vaccine Erendira Hayes MD Work Phone: [facility] Work Phone: 02-15-2005 diphtheria, tetanus toxoids and pertussis vaccine Erendira Hayes MD Work Phone: [facility] Work Phone: 10-08-1997 diphtheria, tetanus toxoids and pertussis vaccine Erendira Hayes MD Work Phone: [facility] Work Phone: 10-08-1997 poliovirus vaccine, unspecified formulation Erendira Hayes MD Work Phone: [facility] Work Phone: 02-27-1995 diphtheria, tetanus toxoids and pertussis vaccine Erendira Hayes MD Work Phone: [facility] Work Phone: 02-27-1995 haemophilus influenz ae type b vaccine, conjugate unspecified formulation Erendira Hayes MD Work Phone: [facility] Work Phone: 02-27-1995 measles, mumps and rubella virus vaccine Erendira Hyaes MD Work Phone: [facility] Work Phone: 02-27-1995 poliovirus vaccine, unspecified formulation Erendira Hayes MD Work Phone: [facility] Work Phone: 04-20-1993 diphtheria, tetanus toxoids and pertussis vaccine Erendira Hayes MD Work Phone: [facility] Work Phone: 04-20-1993 haemophilus influenz ae type b vaccine, conjugate unspecified formulation Erendira Hayes MD Work Phone: [facility] Work Phone: 1992 diphtheria, tetanus toxoids and pertussis vaccine Erendira Hayes MD Work Phone: [facility] Work Phone: 1992 haemophilus influenz ae type b vaccine, conjugate unspecified formulation Erendira Hayes MD Work Phone: [facility] Work Phone: 1992 poliovirus vaccine, unspecified formulation Erendira Hayes MD Work Phone: [facility] Work Phone: 1992 diphtheria, tetanus toxoids and pertussis vaccine Erendira Hayes MD Work Phone: [facility] Work Phone: 1992 haemophilus influenz ae type b vaccine, conjugate unspecified formulation Erendira Hayes MD Work Phone: [facility] Work Phone: 1992 poliovirus vaccine, unspecified formulation Erendira Hayes MD Work Phone: [facility] Work Phone: Payers Date Payer Category Payer Private Health Insurance [id number] 2025 Self-pay [id number] 2024 Medicaid [id number] Member [place] bscriber Plan / Payer (Effective 2024-Present) Name: Marzena Pickering Relation to Subscriber: Self Name: Marzena Pickering Payer ID: [id number] (NAIC) Type: Medicaid Address: [place] [address] [id number] 2024 Medicaid [id number] 2023 Unknown [id number] 2022 Private Health Insurance [id number] 2021 Unknown [id number] 2021 Unknown [employer] E PPO [id number] 2021-Present [phone] [address] [place] [address] PPO [id number] 2020 Unknown [id number] 1992 Unknown [id number] 627 1992 Unknown [id number] 627 1992 Unknown [id number] 627 1992 Unknown [id number] 627 Unknown [id number] Unknown [id number] Unknown [id number] 283 Unknown [id number]. 462 Unknown [id number] 462 Social History Date Type Detail Facility Start: 11-24-2020 End: 08-04-2022 Never smoked tobacco (finding) [facility] Start: 1990 Sex Assigned At Female A [facility] Start: 03-10-2018 End: 08-04-2022 Tobacco use and exposure Smokeless tobacco non-user [facility] Start: 10-06-2021 End: 01-25-2025 Alcohol intake Ex-drinker (finding) [facility] Start: 03-10-2018 History SDOH Alcohol Comment Occasional [facility] Start: 05-19-2020 History SDOH Financial 5 [facility] Start: 05-19-2020 History SDOH Food Worry 1 [facility] Start: 05-19-2020 History SDOH Transpo rt Med 2 [facility] Start: 05-19-2020 Education 17 [facility] Start: 03-16-2021 [facility] Start: 1990 Sex Assigned At Not on file [facility] Start: 09-26-2021 End: 04-19-2022 Exposure to SARS-CoV-2 (event) Not sure [facility] Start: 12-27-2020 End: 11-16-2021 Tobacco smoking status NHIS Unknown if ever smoked [facility] Work Phone: Start: 11-20-2022 End: 01-02-2023 History of Social function [facility] Work Phone: Start: 11-20-2022 End: 01-02-2023 Tobacco use panel [facility] Work Phone: Start: 01-29-2018 How hard is it for y ou to pay for the very basics like food, housing, medical care, and heating Not hard at all [facility] Work Phone: (I/We) worried amelia er (my/our) food would run out before (I/we) got money to buy more. Never true [facility] Work Phone: Start: 07-24-2023 Gender identity Identifies as female gender (finding) [facility] Start: 09-04-2024 Sexual orientation Heterosexual (kailyn cronin) [facility] Goals Date Patient Goal Desired Activity /State Personal health goal Functional Status Date Assessment Result Facility 02-18-2025 Are you deaf, or do you have serious difficulty hearing No 02/18/2025 11:43 PM Soumya Sandy RN No [facility] 02-18-2025 Are you blind, or do you have serious difficulty seeing, even when wearing glasses No 02/18/2025 11:43 PM Soumya Sandy, RON No [facility] 02-18-2025 Do you have serious difficulty walking or climbing stairs No 02/18/2025 11:43 PM Soumya Sandy, RON No [facility] 02-18-2025 Do you have difficul ty dressing or bathing No 02/18/2025 11:43 PM Soumya Sandy, RON No [facility] 02-18-2025 Because of a physica l, mental, or emotional condition, do you have difficulty doing errands alone such as visiting a physician's office or shopping No 02/18/2025 11:43 PM Soumya Sandy RN No [facility] 01-18-2025 Are you deaf, or do you have serious difficulty hearing No 01/18/2025 8:55 AM Navya Titus RN No [facility] Work Phone: 01-18-2025 Are you blind, or do you have serious difficulty seeing, even when wearing glasses No 01/18/2025 8:55 AM Navya Titus RN No [facility] 01-18-2025 Do you have serious difficulty walking or climbing stairs No 01/18/2025 8:55 AM Navya Titus, RON No [facility] 01-18-2025 Do you have difficul ty dressing or bathing No 01/18/2025 8:55 AM Navya Titus, RON No [facility] 01-18-2025 Because of a physica l, mental, or emotional condition, do you have difficulty doing errands alone such as visiting a physician's office or shopping No 01/18/2025 8:55 AM Navya Titus RN No [facility] 10-23-2021 Functional Status Jamal orozco 10-22-2021 [...] 11:43 PM EDT Soumya Brown RN No [facility] 01-18-2025 Because of a physica l, mental, or emotional condition, do you have serious difficulty concentrating, remembering, or making decisions No 01/18/2025 8:55 AM EDT Navya Ochoa RN No [facility] 10-23-2021 Mental Status [facility] 12-26-2020 to 03-31-2025 Anne-Marie Hartley, RON - 03/31/2025 8:52 AM EDT Note Date & Type Note Facility 03-31-2025 Note HNO ID: [id number] Author: ANNE-MARIE HARTLEY RN Service: ? Author Type: Registered Nurse Type: Progress Notes Filed: 03/31/2025 08:53 Note Text: Urine culture results from [facility] Scan on 03/31/2025 8:37 AM by ProviderHillary PA-C: Urine Culture [facility] 03-31-2025 History of Present illness Narrative Urine culture results from [facility] Scan on 03/31/2025 8:37 AM by ProviderHillary PA-C: Urine Culture documented in this encounter [facility] 03-29-2025 History and physical note Note Date/Time March 29, 2025 7:44am [facility] Medical Records Department [address] [place] [address] OB Triage Physician Note 03/29/25515 MR#: [id number] Acct: [id number] Name: MARZENA PICKERING Rep #:[id number] : 1990 34 From: Aby Donovan CNM PCP: Care Physician,No Primary Status :REG CLI Y Location: [address] HPI - General HPI Narrative MARZENA PICKERING, is a 34 F at 36.4 weeks gestation who presents to triage with contractions that started yesterday. Denies any loss of fluid but had vaginal spotting since last night. [facility] Medical History (Updated 03/29/25 @ 05:27 [...] tablet 400 mg PO TID Check with [facility] 11/07/21 03/28/25 18:00 History doctor 400 mg [...] Donovan; No Primary Care Physician ~ Signed [facility] Work Phone: 1(736) 653-973809-15-2025 History and physical note [facility] Medical Records Department [address] [place] [address] OB Triage Physician Note 03/29/25 0516 MR#: [id number] Acct: [id number] Name: MARZENA PICKERING Rep #:[id number] : 1990 34 From: Aby Donovan CNM PCP: Care Physician,No Primary Status :REG CLI Y Location: [address] HPI - General HPI Narrative MARZENA PICKERING, is a 34 F at 36.4 weeks gestation who presents to triage with contractions that started yesterday. Denies any loss of fluid but had vaginal spotting since last night. [facility] Medical History (Updated 03/29/25 @ 05:27 by Aby Donovan CNM) Genital herpes affecting Home Medications ?Medication ?Instructions ?Recorded ?Last Taken ?Type 1 tab PO/SL DAILY Check with 12/27/20 03/28/25 18:00 History primary doctor sertraline 100 mg tablet (Zoloft) 100 mg PO DAILY Che k with [facility] 12/27/20 03/28/25 18:00 History doctor 100 mg acyclovir 400 mg tablet 400 mg PO TID Check with [facility] 11/07/21 03/28/25 18:00 History doctor 400 mg [...] Donovan; No Primary Care Physician ~ Signed [facility]09-09-2025 Telephone encounter Note* Telephone Encounter - Anjali Guzmán RN - 03/23/2025 12:28 PM EDT Day # 5 since COVID19 symptom onset. Caregiver approved to return to work tomorrow for COVID19 absence per survey. Leadership notified. Doc flowsheets updated. Anjali Guzmán RN [facility]09-09-2025 Miscellaneous Notes* Telephone Encounter - Anjali Guzmán RN - 03/23/2025 12:28 PM EDT Day # 5 since COVID19 symptom onset. Caregiver approved to return to work tomorrow for COVID19 absence per survey. Leadership notified. Doc flowsheets updated. Anjali Guzmán RN documented in this encounterSumma Health [facility]09-06-2025 Telephone encounter Note * Telephone Encounter [...] Onset: 03/18/25 -Best email for electronic communication: [email or web address]; -Email sent to leadership: [email or web address] - Employee ID: [id number] Plan - Discussed positive COVID19 result. Reinforced self-isolation, avoiding public areas and gatherings. Mask while home with family and not isolated alone - Advised no work until cleared by Occupational Health. Clearance will be provided through RTW COVID19 questionnaire sent through [employer], followed by clearance email sent to surface water manager (emails will be sent Saturday through [...] Pickering Date: 03/20/2025 Time: 3:29 PM Pager/Contact: [phone] [facility]09-06-2025 Miscellaneous Notes* Telephone Encounter - Jessy [...] Onset: 03/18/25 -Best email for electronic communication: [email or web address]; -Email sent to leadership: [email or web address] - Employee ID: [id number] Plan - Discussed positive COVID19 result. Reinforced self-isolation, avoiding public areas and gatherings. Mask while home with family and not isolated alone - Advised no work until cleared by Occupational Health. Clearance will be provided through RTW COVID19 questionnaire sent through [employer] message, followed by clearance email sent to surface water manager (emails will be sent Saturday through Saturday) - Advised to contact PCP regarding positive test result/symptom management - Advised to seek evaluation by primary care provider, [facility], [facility], or ED with worsening or escalating symptoms. - Provided with caregiver follow-up email to preferred e-mail - Advised to call the [employer] Hotline with outstanding questions/comments/concerns. Signature: Jessy Segura RN Patient Name: Marzena Pickering Date: 03/20/2025 Time: 3:29 PM Pager/Contact: [id number] documented in this encounterSumma Health [facility]09-[facility]-2025 Evaluation note* Diagnosis Onset Date Resolution [...] in third trimester acute Sep tem2024 12:08am [facility] Work Phone: 1(194) 659-891309-03-2025 History and physical note [facility] Medical Records Department [address] [place] [address] OB Triage Physician Note 03/17/252035 MR#: [id number] Acct: [id number] Name: MARZENA PICKERING Rep #:[id number] : 1990 34 From: Miriam Gr MD PCP: Care Physician,No Primary Status :REG CLI Y Location: [facility] HPI - General General Date of Service: [...] 100 mg PO DAILY Che k with [facility] 12/27/20 10/07/21 07:00 History doctor acyclovir 400 mg tablet 400 mg PO TID Check with [facility] 11/07/21 11/07/21 History doctor ferrous sulfate 325 [...] MD; No Primary Care Physician ~ Signed [facility]09-02-2025 Note Indication Evaluation of growth. Uterine size [...] EFW (oz) 10 oz EFW by: Hadlock ([id number]-[id number]-FL) Extended Bird Sitter 3.6 mm Extremities / Bony Struc FL [...] Dobbs RDMS Read By: Chris Lappen, M.D.MATERNAL [id number] NoteHNO ID: [id number] Author: MARLEE ALMANZA APRN.SEBASTIAN Service: ? Author Type: Milling Machine Operator Gear Type: Progress Notes Filed: 03/05/2025 14:55 Note [...] weeks or sooner if needed Marlee Almanza APRN.[facility]08-22-2025 History of Present illness Narrative* Marlee Almanza [...] needed Marlee Almanza APRN.CNM documented in this encounterSumma Health W[facility]08-22-2025 Instructions* Patient Instructions* Saul Cherry LPN - 03/05/2025 2:20 PM EDT SEQUENTIAL SCREENINGS The [facility] offers sequential screenings for women who [...] testing. It will require an appointment withour insulation technician. This is not an ultrasound performed [...] the above symptoms, contact our office at [phone] and ask to speak with anurse. After hours, you can call doctors registry at [phone] OR call [facility] at [phone] ask to have the doctor stallion keeper paged. If you consider this an emergency, dial [phone] or go to your nearest emergency department. NEED HELP? Are you dealing with a violent or abusive relationship? Are you a victim of rape or sexual assult? Call [facility] ([facility] 24 hour Crisis Hotline: 195.915.1958 or 684-142-6567. MANUAL Your Guide to a Healthy manual is now on-line. Visit [email or web address] to download your free copy documented in this encounterSumma Health Wad[facility]08-12-2025 Telephone encounter Note * Telephone Encounter - Marlee Almanza APRN.CNM - 02/23/2025 2:29 PM EDT Reviewed at visit. Marlee Almanza APRN.CNM [facility]08-12-2025 Miscellaneous Notes* Telephone Encounter - Marlee Almanza APRN.CNM - 02/23/2025 2:29 PM EDT Reviewed at visit. Marlee Almanza APRN.CNM documented in this encounterSumma Health Wad[facility] - [facility]08-11-2025 Progress note* Quick Notes - Marlee [...] or sooner if needed Marlee Almanza APRN.CNM [facility]08-11-2025 Miscellaneous Notes* Quick Notes - Marlee [...] needed Marlee Almanza APRN.CNM documented in this encounterSumma Health Wad[facility] - [facility]08-11-2025 Instructions* Patient Instructions* Irina Price MA - 02/22/2025 1:34 PM EDT SEQUENTIAL SCREENINGS The [facility] offers sequential screenings for women who [...] testing. It will require an appointment withour insulation technician. This is not an ultrasound performed [...] the above symptoms, contact our office at [phone] and ask to speak with anurse. After hours, you can call doctors registry at [phone] OR call [facility] at [phone] ask to have the doctor stallion keeper paged. If you consider this an emergency, dial 91-5 or go to your nearest emergency department. NEED HELP? Are you dealing with a violent or abusive relationship? Are you a victim of rape or sexual assult? Call [facility] ([place]) 24 hour Crisis Hotline: 233.301.8854 or 951-563-7653. MANUAL Your Guide to a Healthy manual is now on-line. Visit [email or web address] to download your free copy documented in this encounterSumma Health Wadsworth - [facility] Center08-07-2025 NoteHNO ID: [id number] Author: RUTH TOLLIVER MD Service: Obstetrics Author [...] found under the Get Images tab in [employer]. SIGNATURE: Ruth Tolliver MD PATIENT NAME: Marzena Pickering DATE: February 18, 2025 TIME: 11:05 [facility]08-07-2025 NoteHNO ID: [id number] Author: RUTH TOLLIVER MD Service: Obstetrics Author [...] , who is at 31w0d with an INKKI of 04/22/2025, by Last Menstrual Period dating [...] iron tablets for and following with her collar runner in [place]. History of threatened labor in G1 that required admission but ultimately delivered at term. She denies leakage of fluid, vaginal bleeding, reports movement. REVIEW OF SYSTEMS: GENERAL: No fever or chills. RESPIRATORY: No shortness of breath. CARDIOVASCULAR: Negative for chest pain or leg swelling. GI: No nausea, vomiting, diarrhea, or constipation. : No history of dysuria, frequency or incontinence YOUTH MINISTER: Negative for vaginal bleeding. Objective LAST VITALS: Pulse: 69 BP: 121/71 Resp: 18 Temp: 36 ?C (96.8 ?F) SpO2: 100 % Weight: 78.9 kg (174 lb) SENSITIVE EXAMINATION CONSENT: Participation of a fellow, resident, medical student, or advanced practice provider student in performing the sensitive examination was discussed with the patient or authorized labor representative. The patient or authorized labor representative has agreed to proceed with the [...] - tracing reassuring - Received care at [place] with collar runner, next appointment 02/22 Contributions to note made [...] 18, 2025 TIME: 9:41 [facility]08-07-2025 NoteHNO ID: [id number] Author: IRLANDA BANKS RN Service: Nursing Author [...] 18, 2025 TIME: 9:29 [facility]07-31-2025 NoteHNO ID: [id number] Author: MARLEE ALMANZA APRN.CNM Service: ? Author Type: Milling Machine Operator Gear Type: Progress Notes Filed: 02/11/2025 09:31 Note Text: ALIX-S: Marzena Pickering is a 34 year old female who presents at [id number] NIKKI:04/22/2025, by Last Menstrual Period for a [...] weeks or sooner if needed Marlee Almanza APRN.CNThe [facility]07-31-2025 History of Present illness Narrative* Marlee Almanza APRN.CNM - 02/11/2025 9:21 AM EDT ALIX-S: Marzena Pickering is a 34 year old female who presents at [id number] NIKKI:04/22/2025, by Last Menstrual Period for a [...] needed Marlee Almanza APRN.CNM documented in this encounterSumma Health Wad[facility] - [facility]07-31-2025 Instructions* Patient Instructions* Candelaria Nguyễn MA - 02/11/2025 9:10 AM EDT SEQUENTIAL SCREENINGS The [facility] offers sequential screenings for women who [...] testing. It will require an appointment withour insulation technician. This is not an ultrasound performed [...] the above symptoms, contact our office at [phone] and ask to speak with anurse. After hours, you can call doctors registry at [phone] OR call [facility] at [phone] ask to have the doctor stallion keeper paged. If you consider this an emergency, dial 9-- or go to your nearest emergency department. NEED HELP? Are you dealing with a violent or abusive relationship? Are you a victim of rape or sexual assult? Call [facility] ([place]) 24 hour Crisis Hotline: 868.141.7142 or 344-131-6546. MANUAL Your Guide to a Healthy manual is now on-line. Visit [email or web address] to download your free copy documented in this encounterSumma Health Wadsworth - [facility]itt[facility] Center07-15-2025 NoteHNO ID: [id number] Author: SELAM LOUISE OD Service: ? Author Type: AGING ROOM OPERATOR Type: Progress Notes Filed: 01/26/2025 09:14 Note [...] Selam Louise OD January 25, 2025 4:00 [facility]07-15-2025 History of Present illness Narrative* Selam Louise, [...] 25, 2025 4:00 PM documented in this encounterSumma Health Wad[facility] - [facility]07-14-2025 Progress note* Quick Notes - Marlee [...] or sooner if needed Marlee Almanza APRN.CNM [facility]07-14-2025 Miscellaneous Notes* Quick Notes - Marlee [...] needed Marlee Almanza APRN.CNM documented in this encounterSumma Health Wadsworth - [facility]itt[facility] Center07-14-2025 Instructions* Patient Instructions* Saul Cherry LPN - 01/25/2025 1:30 PM EDT SEQUENTIAL SCREENINGS The [facility] offers sequential screenings for women who [...] testing. It will require an appointment withour insulation technician. This is not an ultrasound performed [...] the above symptoms, contact our office at [phone] and ask to speak with anurse. After hours, you can call doctors registry at [phone] OR call [facility] at [phone] ask to have the doctor stallion keeper paged. If you consider this an emergency, dial 2-8-5 or go to your nearest emergency department. NEED HELP? Are you dealing with a violent or abusive relationship? Are you a victim of rape or sexual assult? Call [facility] ([place]) 24 hour Crisis Hotline: 931.905.8232 or 748-818-3443. MANUAL Your Guide to a Healthy manual is now on-line. Visit [email or web address] to download your free copy documented in this encounterSumma Health Wadsworth - [facility] Center06-18-2025 Progress note* Quick Notes - Marlee [...] RTO in 4 weeks Marlee Almanza APRN.CNM [facility]06-18-2025 Miscellaneous Notes* Quick Notes - Marlee [...] weeks Marlee Almanza APRN.CNM documented in this encounterSumma Health Wadsworth - [facility]ittman [facility] Center06-18-2025 Instructions* Patient Instructions* Marlee Almanza APRN.CNM [...] the above symptoms, contact our office at [phone] and ask to speak with anurse. After hours, you can call doctors registry at [phone] OR call [facility] at [phone] ask to have the doctor stallion keeper paged. If you consider this an emergency, dial 9-9-2 or go to your nearest emergency department. NEED HELP? Are you dealing with a violent or abusive relationship? Are you a victim of rape or sexual assult? Call [facility] ([facility] 24 hour Crisis Hotline: 787.192.6948 or 430-226-0163. MANUAL Your Guide to a Healthy manual is now on-line. Visit [email or web address] to download your free copy documented in this encounterSumma Health Wadsworth - [facility] Center05-20-2025 NoteHNO ID: [id number] Author: MARLEE ALMANZA APRN.CNM Service: ? Author Type: Milling Machine Operator Gear Type: Progress Notes Filed: 12/01/2024 15:20 Note [...] call RTO in 4 weeks Marlee Almanza APRN.[facility]05-01-2025 Instructions* Patient Instructions* Samaria Haji APRN.COMMERCIAL GREEN BUILDING ARCHITECT - 11/12/2024 2:03 PM EDT We discussed your mental health and current medications: - Continue taking Zoloft at your current dose. I have sent a refill to the [facility]. Please ensure you [...] the National Suicide Prevention Lifeline at 987 (873-511-6313) --text the Crisis Text Line (text HOME to 426603) --call 911 and let them know you are having a mental health crisis or go to your nearest Emergency Room for stabilization. --You can also call Mobile Crisis at [phone]. -- You may call the department appointment line at [phone] to schedule your appointment. -- Please call my nurse at [phone] or send me a message in [employer] with any questions or concerns between appointments. documented in this encounterSumma Health Wadsworth - [facility]itt[facility] Center05-01-2025 NoteHNO ID: [id number] Author: SAMARIA HAJI APRN.CNP Service: ? Author [...] visit. Either the patient or their legal labor representative has been informed of the risks and benefits of -- and alternatives to -- treatment through a remote evaluation and consents to proceed with the evaluation remotely. Recording using [employer] software for draft documentation of the visit was discussed with the patient/authorized labor representative; all questions welcomed and answered. Patient/authorized labor representative agreed to proceed CC: Outpatient follow-up and safety monitoring of previously prescribed psychiatric medication, psychotherapy or other treatment HPI: Patient is a 34-year-old female with a history of anxiety and depression, currently 17 weeks , presenting for follow-up. 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 She is currently taking [...] on File Prior to Visit Medication Sig [id number] 28 mg-800 mcg- 200 mg cap Take 1 capsule by mouth once daily. aspirin, enteric coated (ECOTRIN LOW STRENGTH) 81 mg EC tablet Take 1 tablet by mouth once daily. ond (more content not included)...[facility]05-01-2025 History of Present illness Narrative* Samaria Haji, FRUIT COORDINATOR.COMMERCIAL GREEN BUILDING ARCHITECT - 11/12/2024 11:01 AM EDT FOLLOW UP [...] visit. Either the patient or their legal labor representative has been informed of the risks and benefits of -- and alternatives to -- treatment through a remote evaluation and consents to proceed with the evaluation remotely. Recording using ambient [employer] software for draft documentation of the visit was discussed with the patient/authorized labor representative; all questions welcomed and answered. Patient/authorized labor representative agreed to proceed CC: Outpatient follow-up and safety monitoring of previously prescribed psychiatric medication, psychotherapy or other treatment HPI: Patient is a 34-year-old female with a history of anxiety and depression, currently 17 weeks , presenting for follow-up. 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 She is currently taking [...] on File Prior to Visit Medication Sig [id number] 28 mg-800 mcg- 200 mg cap Take [...] current dosage. - Sent prescription refill to [facility]. 2. Encounter for long-term (current) [...] 2024 TIME: 2:01 PM documented in this encounterSumma Health [facility]04-22-2025 Telephone encounter Note * Telephone Encounter - Marlena Olsen LPN - 11/03/2024 4:39 PM EDT Offered 11/12/24 visit @ 11 am to patient. Waiting for Pt to confirm. Marlena Olsen LPN [facility]04-22-2025 Miscellaneous Notes* Telephone Encounter - Marlena Olsen LPN - 11/03/2024 4:39 PM EDT Offered 11/12/24 visit @ 11 am to patient. Waiting for Pt to confirm. Marlena Olsen LPN documented in this encounterSumma Health Wadsworth - [facility]04-22-2025 Telephone encounter Note * Telephone Encounter - Marlee Almanza APRN.CNM - 11/03/2024 4:31 PM EDT Sent. Marlee Almanza APRN.CNM [address]22-2025 Miscellaneous Notes* Telephone Encounter - Marlee Almanza APRN.CNM - 11/03/2024 4:31 PM EDT Buck. Marlee Almanza APRN.CNM documented in this encounter[address]22-2025 Miscellaneous Notes* Quick Notes - Marlee [...] weeks Marlee Almanza APRN.CNM documented in this encounterSumma Health Wadsworth - [facility]04-22-2025 Progress note* Quick Notes - Marlee [...] RTO in 4 weeks Marlee Almanza APRN.CNM [facility]04-22-2025 Instructions* Patient Instructions* Qian Nichols MA - 11/03/2024 2:21 PM EDT SEQUENTIAL SCREENINGS The [facility] offers sequential screenings for women who [...] testing. It will require an appointment withour insulation technician. This is not an ultrasound performed [...] the above symptoms, contact our office at [phone] and ask to speak with anurse. After hours, you can call doctors registry at [phone] OR call [facility] at [phone] ask to have the doctor stallion keeper paged. If you consider this an emergency, dial 9-2- or go to your nearest emergency department. NEED HELP? Are you dealing with a violent or abusive relationship? Are you a victim of rape or sexual assult? Call [facility]) 24 hour Crisis Hotline: 927.239.5204 or 328-133-9710. MANUAL Your Guide to a Healthy manual is now on-line. Visit [email or web address] to download your free copy documented in this encounterSumma Health Wadsworth - [facility] Center04-18-2025 NoteHNO ID: [id number] Author: SAMARIA HAJI APRN.CNP Service: ? Author Type: Nurse Practitioner Type: Progress Notes Filed: 10/30/2024 14:41 Note Text: Patient did not log in for her virtual visit with the provider today.[facility]04-18-2025 History of Present illness Narrative* Samaria Haji APRN.CNP - 10/30/2024 2:40 PM EDT Patient did not log in for her virtual visit with the provider today. documented in this encounterSumma Health Wadsworth [facility] Center03-25-2025 Progress note* Quick Notes - Marlee [...] RTO in 4 weeks Marlee Almanza APRN.CNM [facility]03-25-2025 Miscellaneous Notes* Quick Notes - Marlee [...] weeks Marlee Almanza APRN.CNM documented in this encounterSumma Health Wadsworth - [facility]ittman [facility] Center03-25-2025 NoteHNO ID: [id number] Author: MARLEE ALMANZA APRN.CNM Service: ? Author Type: Milling Machine Operator Gear Type: Progress Notes Filed: 10/06/2024 12:48 Note Text: [facility]03-25-2025 History of Present illness Narrative* Marlee Almanza APRN.CNM - 10/06/2024 12:37 PM EDT ALIX- documented in this encounterSumma Health Wadsworth - [facility]03-05-2025 Telephone encounter Note * Telephone Encounter - Samaria Haji APRN.CNP - 09/16/2024 4:31 PM EST Patient had to cancel her visit with the provider today as she got called into work. Could you please reach out and help the patient schedule an appointment sooner than her October visit. [facility]03-05-2025 Miscellaneous Notes* Telephone Encounter - Samaria [...] visit. Marlena Olsen LPN documented in this encounterSumma Health Wadsworth - [facility]itt[facility] Center03-05-2025 History of Present illness Narrative* Samaria Haji APRN.BROOKE - 09/16/2024 4:30 PM EST Patient sent a message on mychart sharing that she would not be able to make it to the appointment as she got called into work. Provider will work on getting patient rescheduled. documented in this encounterSumma Health Wad[facility]03-05-2025 NoteHNO ID: [id number] Author: SAMARIA HAJI APRN.CNP Service: ? Author Type: Nurse Practitioner Type: Progress Notes Filed: 09/16/2024 16:30 Note Text: Patient sent a message on mychart sharing that she would not be able to make it to the appointment as she got called into work. Provider will work on getting patient rescheduled.[facility] 09-16-2024 Telephone encounter Note* Telephone Encounter - Marlena Olsen LPN - 09/16/2024 1:31 PM EST Call placed to patient (x2) with message left with today's VV information for today. Hopefully patient signs on for visit. Marlena Olsen LPN [facility]03-05-2025 Telephone encounter Note* Telephone Encounter - Samaria Haji APRN.CNP - 09/16/2024 11:30 AM EST Scheduled for an appointment today to address this in detail. [facility]03-05-2025 Miscellaneous Notes* Telephone Encounter - Samaria Haji APRN.CNP - 09/16/2024 11:30 AM EST Scheduled for an appointment today to address this in detail. documented in this encounterSumma Health Wad[facility]03-04-2025 Telephone encounter Note * Telephone Encounter - Samaira Haji APRN.CNP - 09/15/2024 11:32 AM EST Noted. Thank you. [facility]03-04-2025 Miscellaneous Notes* Telephone Encounter - Samaria Haji APRN.CNP - 09/15/2024 11:32 AM EST Noted. Thank you. * Telephone Encounter - Marlena Olsen LPN - 09/15/2024 11:09 AM EST Call placed to patient, offering VV tomorrow 09/16/24 @ 4:30 pm to discuss medication side effects with Provider. Message left for patient to confirm visit via [employer] or by calling [phone]. Marlena Olsen LPN documented in this encounterSumma Health Wad[facility]03-04-2025 Telephone encounter Note * Telephone Encounter - Marlena Olsen LPN - 09/15/2024 11:09 AM EST Call placed to patient, offering VV tomorrow 09/16/24 @ 4:30 pm to discuss medication side effects with Provider. Message left for patient to confirm visit via [employer] or by calling [phone]. Marlena Olsen LPN [facility]02-21-2025 NoteHNO ID: [id number] Author: MARLEE ALMANZA APRN.SEBASTIAN Service: ? Author Type: Milling Machine Operator Gear Type: Progress Notes Filed: 09/10/2024 12:49 Note Text: Laceworker offered: Patient declines. 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 INITIAL OB ASSESSMENT HPI: [...] Status:Co-habitating Partner: Name: Norberto Age: 37 Occupation: Senior Principal Process Engineer Gender: Male PAST MEDICAL HISTORY Diagnosis Date [...] discussed with the Patient or Patient's Authorized Building Construction Inspector. As applicable, any other physician, advance practice provider, medical student, or other health professional student that will be observing or involved in the sensitive examination for educational or training purposes was discussed with the Patient or Authorized Building Construction Inspector. The Patient or Authorized Building Construction Inspector has agreed to proceed with the sensitive [...] OB labs including STD/HIV. Reviewed midwifery and food and drug inspector services that are available. 2) Screening: Hemoglobin [...] prn. Marlee Almanza APRN.CNM documented in this encounterSumma Health Wadsworth - [facility]02-21-2025 Instructions* Patient Instructions* Qian Nichols MA - 09/04/2024 3:10 PM EST Please select the following link to access the [facility] Your Guide to a Healthy . [email or web address] Please select the following link to access the [facility] Your Guide to a Healthy . [email or web address] documented in this encounterSumma Health Wadsworth - [facility] Center02-18-2025 NoteHNO ID: [id number] Author: AMAYA DEAL RT(R) Service: ? Author [...] PATIENT PRESENTS WITH AN IMPLANTABLE OR ATTACHED DISPATCHER SERVICE: N/A RADIOLOGY DEPARTMENT: Ultrasound PERIPHERAL IV DATA: Not applicable SIGNED BY: RT Fred(R) September 01, 2024 10:03 PMUnHendricks Regional [id number] [id number] (AGENT OF COVID-19) RNA: Not detected INFLUENZA A RNA: Detected INFLUENZA B RNA: Not detected RESPIRATORY SYNCYTIAL VIRUS (RSV) RNA: Not detectedUnwilson medical center HospitalComment on above:Performed By: #### [id number] ####[facility] LABCLIA [id number] [place], [place] [address]ZKXRINFAYETTE MEDICAL [facility]ENTER02-18-2025 NoteHNO ID: [id number] Author: ARIANNA BYNUM APRN.BROOKE Service: ? Author [...] her children had influenza. Has called her collar runner in [place] on 08/22 and had no vomiting then. [...] or erythematous. Nose: Nose normal. Mouth/Throat: Lips: [place]. No lesions. Mouth: Mucous membranes are moist. [...] Normal b (more content not included)...[facility] [id number] History of Present illness Narrative* Arianna Bynum APRN.COMMERCIAL GREEN BUILDING ARCHITECT - 09/01/2024 6:19 PM EST September 01, [...] her children had influenza. Has called her collar runner in [place] on 08/22 and had no vomiting then. [...] or erythematous. Nose: Nose normal. Mouth/Throat: Lips: [place]. No lesions. Mouth: Mucous membranes are moist. [...] APRN.CNP This note was partially generated using [employer] voice recognition system and there may be [...] Plan as outlined above. documented in this encounterSumma Health Wad[facility]02-18-2025 Instructions* Patient Instructions* Arianna Bynum APRN.CNP - 09/01/2024 6:18 PM EST Recommend ER for further evaluation documented in this encounterSumma Health Wadsworth - [facility] Center02-14-2025 Instructions* Patient Instructions* Samaria Haji APRN.CNP [...] the National Suicide Prevention Lifeline at 988 (901-990-6308) --text the Crisis Text Line (text HOME to 556711) --call 911 and let them know you are having a mental health crisis or go to your nearest Emergency Room for stabilization. --You can also call Mobile Crisis at [phone]. -- You may call the department appointment line at [phone] to schedule your appointment. -- Please call my nurse at [phone] or send me a message in Engezni with any questions or concerns between appointments. documented in this encounterSumma Health Wad[facility]02-14-2025 History of Present illness Narrative* Samaria [...] visit. Either the patient or their legal labor representative has been informed of the risks [...] from it. Will send an update via [employer] if she continues to notice apathy. It [...] Recurrent major depressive disorder, in partial remission ([facility]) Encounter for long-term (current) use of medications [...] 2024 TIME: 2:33 PM documented in this encounterSumma Health Wadsworth - [facility]02-14-2025 NoteHNO ID: [id number] Author: SAMARIA HAJI APRN.CNP Service: ? Author [...] visit. Either the patient or their legal labor representative has been informed of the risks [...] from it. Will send an update via [employer] if she continues to notice apathy. It [...] this visit. Last 3 (more content not included)...[facility]02-11-2025 Telephone encounter Note* Telephone Encounter - Yeni Craig RN - 08/25/2024 10:15 AM EST Patient notified. She declined Zofran for now, but will contact office if symptoms persist and she changes her mind. Yeni Craig RN [facility]02-11-2025 Miscellaneous Notes* Telephone Encounter - Yeni [...] recommendations. Anne-Marie Hartley RN documented in this encounterSumma Health Wadsworth - [facility]itt[facility] Center02-11-2025 Telephone encounter Note * Telephone Encounter - Marlee Almanza APRN.CNM - 08/25/2024 9:46 AM EST That is fine, can send zofran prescription if desires. Marlee Almanza APRN.CNM [facility]02-10-2025 Telephone encounter Note* Telephone Encounter - [...] provider has further recommendations. Anne-Marie Hartley, RN [facility]02-03-2025 Telephone encounter Note* Telephone Encounter - Marlee Almanza APRN.CNM - 08/17/2024 1:30 PM EST Noted and will follow up with patient at her appointment. Thank you, Marlee Almanza APRN.CNM [facility]02-03-2025 Miscellaneous Notes* Telephone Encounter - Marlee [...] about the Wellbutrin? Pt is leaving for [place] today-her flight leaves at 220 pm today. States okay to leave a detailed voicemail. documented in this encounterSumma Health Wad[facility]01-31-2025 Telephone encounter Note * Telephone Encounter [...] with considerations to and at that appointment. [facility]01-31-2025 Telephone encounter Note* Telephone Encounter - [...] about the Wellbutrin? Pt is leaving for [place] today-her flight leaves at 220 pm today. States okay to leave a detailed voicemail. [facility]11-08-2024 Telephone encounter Note* Telephone Encounter - Samaria Haji APRN.CNP - 05/22/2024 5:03 PM EST Addressed in a separate encounter. [facility]11-08-2024 Miscellaneous Notes* Telephone Encounter - Samaria Haji APRN.CNP - 05/22/2024 5:03 PM EST Addressed in a separate encounter. documented in this encounterSumma Health Wadsworth - [facility]itt[facility] Center10-22-2024 Instructions* Patient Instructions* Samaria Haji APRN.CNP [...] from it. Will send an update via [employer] if she continues to notice apathy. For those experiencing a suicidal crisis: --call the National Suicide Prevention Lifeline at 988 (631-343-9015) --text the Crisis Text Line (text HOME to 886605) --call 911 and let them know you are having a mental health crisis or go to your nearest Emergency Room for stabilization. --You can also call Mobile Crisis at [phone]. Next appointment: --Schedule in 2 months or sooner if needed -- You may call the department appointment line at [phone] to schedule your appointment. -- Please call my nurse at [phone] or send me a message in En[employer]ni with any questions or concerns between appointments. documented in this encounterSumma Health Wadsworth - [facility] Center10-21-2024 NoteHNO ID: [id number] Author: SAMARIA HAJI APRN.CNP Service: ? Author [...] visit. Either the patient or their legal labor representative has been informed of the risks [...] as his kids go to school in [place] as that was very far drive from [...] record, Labs DIAGNOSIS: [place] (more content not included)...[facility]10-21-2024 History of Present illness Narrative* Samaria Haji, CRUZITO.COMMERCIAL GREEN BUILDING ARCHITECT - 05/04/2024 1:38 PM EDT Images from [...] visit. Either the patient or their legal labor representative has been informed of the risks [...] as his kids go to school in [place] as that was very far drive from [...] from it. Will send an update via [employer] if she continues to notice apathy. MEDICATION [...] 2024 TIME: 1:38 PM documented in this encounterSumma Health Wadsworth - [facility] Center08-23-2024 Telephone encounter Note * Telephone Encounter [...] [facility] Pharm[facility] Information [facility]acy Address [id number] [address] Anay Diaz RN [facility]08-23-2024 Miscellaneous Notes* Telephone Encounter - Anay Diaz RN - 03/06/2024 3:55 PM EDT Patient notified and voiced understanding. The following approved medications have been transmitted electronically. Requested Prescriptions Signed Prescriptions Disp Refills fluconazole (DIFLUCAN) 150 mg tablet 1 tablet 0 Sig: Take 1 tablet by mouth one time only for 1 dose. Authorizing Provider: ANNE-MARIE ROLDAN Pharmacy Information Pharmacy Address [id number] [facility] [address] [place], [place] [id number] Anay Diaz RN * Telephone Encounter - [...] do Monistat. [facility] [place] [facility] [place] [facility] Pharmacy is up to date. Can you address? Anay Diaz RN documented in this encounterSumma Health Wadsworth - [facility]08-23-2024 Telephone encounter Note * Telephone Encounter - Anne-Marie Roldan MD - 03/06/2024 3:52 PM EDT Order sent [facility]08-23-2024 Telephone encounter Note* Telephone Encounter - Anay Diaz RN - 03/06/2024 9:50 AM EDT Patient calling with complaints of a yeast infection. Current symptoms are vaginal itching. Denies any burning, discharge or odor. Patient was recently on an antibiotic. Patient asking for Diflucan as she does not want to do Monistat. [place] [employer] [employer] Pharmacy is up to date. Can you address? Anay Diaz RN [facility]07-19-2024 History of Present illness Narrative* Samaria Haji, FRUIT COORDINATOR.COMMERCIAL GREEN BUILDING ARCHITECT - 01/31/2024 1:40 PM EDT Images from [...] visit. Either the patient or their legal labor representative has been informed of the risks [...] surgery. [facility] get [facility] and will have help from boyfriend to watch the kids. Feels that this will help. She was not going to [place] for a bit after mother's . Shares that starting therapy made her more angry about things that happened to mom. Started going back to [place] 3 weeks ago. It felt good going [...] in partial remission (hcc) (primary encounter diagnosis) Gudio (generalized anxiety disorder) Grief reaction GAF: -60-51 [...] which included preparing to see the patient, hehq-si-euay patient care, completing clinical documentation, and counseling and educating the patient/family/caregiver, ordering medications/labs. ADD ON PSYCHOTHERAPY CODE : No SIGNATURE: Samaria Haji APRN.CNP PATIENT NAME: Marzena Pickering DATE: January 31, 2024 TIME: 1:40 PM documented in this encounterSumma Health Wadsworth - [facility]07-05-2024 History of Present illness Narrative* Samaria Haji APRN.CNP - 01/17/2024 10:08 AM EDT Patient sent a [employer] message this morning to reschedule the visit due to being mandated to work. Provider has asked the windows support engineer to reach out to the patient to help in rescheduling her appointment. Will provide refills if needed. documented in this encounterSumma Health Wadsworth - [facility] Center06-05-2024 Telephone encounter Note * Telephone Encounter - Anay Diaz RN - 12/18/2023 4:30 PM EDT Order pended. Anay Diaz RN [facility]06-05-2024 Miscellaneous Notes* Telephone Encounter - Anay Diaz RN - 12/18/2023 4:30 PM EDT Order pended. Anay Diaz RN documented in this encounterSumma Health Wadsworth - [facility]04-24-2024 Telephone encounter Note * Telephone Encounter - Anay Diaz RN - 11/06/2023 4:00 PM EDT Patient notified and voiced understanding. Appointments scheduled. Anay Diaz RN [place] [address]-24-2024 Miscellaneous Notes* Telephone Encounter - Anay Diaz [...] advise and call patient. documented in this encounterSumma Health Wadsworth - [facility] Center04-24-2024 Telephone encounter Note * Telephone Encounter - Marlee Almanza APRN.CNM - 11/06/2023 3:20 PM EDT Please schedule patient for appointment and ultrasound same day. Marlee Almanza APRN.CNM [facility]04-24-2024 Telephone encounter Note* Telephone Encounter - [...] just worried. Please address. Anay Diaz RN [facility]04-24-2024 Telephone encounter Note* Telephone Encounter - Farhana Ku - 11/06/2023 2:49 PM EDT Patient calling stating she is have menstrual issues. October 21- was her last cycle and she startedwith brown spotting today. Please advise and call patient. [facility] Work Phone: 1(743) 140-770304-19-2024 Instructions* Patient Instructions* Samaria Haji APRN.COMMERCIAL GREEN BUILDING ARCHITECT - 11/01/2023 12:57 PM EDT Halley Ivan, [...] the National Suicide Prevention Lifeline at 988 (193.489.7277) --text the Crisis Text Line (text HOME to 119956) --call 531 and let them know you are having a mental health crisis or go to your nearest Emergency Room for stabilization. --You can also call Mobile Crisis at [phone]. Next appointment: --Schedule in 2 to 3 months or sooner if needed -- You may call the department appointment line at [phone] to schedule your appointment. -- Please call my nurse Shannon at [phone] or send me a message in En[employer]ni with any questions or concerns between appointments. documented in this encounterSumma Health Wadsworth - [facility]04-19-2024 History of Present illness Narrative* Samaria [...] visit. Either the patient or their legal labor representative has been informed of the risks [...] the National Suicide Prevention Lifeline at 988 (461-870-1870) --text the Crisis Text Line (text HOME to 134062) --call 911 and let them know you are having a mental health crisis or go to your nearest Emergency Room for stabilization. --You can also call Mobile Crisis at [phone]. MEDICATION CHANGES: See above for changes Risks [...] which included preparing to see the patient, lxmi-kw-ntku patient care, completing clinical documentation, and counseling and educating the patient/family/caregiver, ordering medications/labs. ADD ON PSYCHOTHERAPY CODE : No SIGNATURE: Samaria Haji APRN.CNP PATIENT NAME: Marzena Pickering DATE: November 01, 2023 TIME: 10:08 AM documented in this encounterSumma Health Wadsworth - [facility]04-12-2024 Miscellaneous Notes* Addendum Note - Samaria Haji APRN.CNP - 10/25/2023 5:16 PM EDTAddended by: SAMARIA HAJI on: 10/25/2023 05:16 PM Modules accepted: Orders documented in this encounterSumma Health Wadsworth - [facility]03-18-2024 Instructions* Patient Instructions* Sherita Mejia PA-C [...] results within 14 days. Office Phone #: [phone] documented in this encounterSumma Health Wadsworth - [facility]itt[facility] Center03-18-2024 History of Present illness Narrative* Sherita [...] The specimen was sent to dermatopathology at [facility]. - LIDOCAINE 1 %-EPINEPHRINE 1:100,000 INJECTION [...] correctly labeled. Martha Erlindaharrison documented in this encounterSumma Health Wadsworth - [facility] Medical [facility] History of Present illness Narrative* Supriya Valdovinos, [facility] - 08/26/2023 1:00 PM EST HP HOLISTIC PSYCH INTAKE Virtual Visit Consent: SERVICE/CPT CODE: Telehealth Virtual Visit Due to the [facility] and [facility] and the need for ongoing mental health services, thefollowing visit was completed virtually to reduce the risk of COVID-19 exposure. Obtained consent for the present appointment, and consent related to virtual visits was provided verbally after information was sent via Engezni or read to patient if [facility] [employer] not available. Individuals present:Self Date of Service: [...] during interview MEMORY: short term intact and exterminator helper termite intact INSIGHT/JUDGEMENT: fair Current view: Showing all answers [facility] Mychart Additional Demo Question 08/26/2023 12:43 PM EST - Filed by Patient Is this visit related to an accident, other than Workers' Compensation? No Is this visit related to Workers' Compensation? No Do you need an skiing instructor? No [facility] Mychart Zoom Message Question 08/26/2023 12:44 PM EST - Filed by Patient Install Zoom I have Zoom installed [facility] Patient Evaluation Intake Form Question 08/26/2023 12:50 PM EST - Filed by Patient Phone Number: [phone] If necessary, may we leave a message [...] feel emotionally sup-ported in these relationships? Current amish or spiritual affiliations? Yes How do you like to spend your recreation time? Na What are your goals for our time together? Move past feelinngs [facility] [place] Depression Checklist Question [...] (range: 0 - 45) 14 (Mild Depression) [facility] [place] Anxiety Inventory Question 08/26/2023 [...] Text Line: Text the word HOME to [phone] Copeline: [phone] SALAAZR Mir documented in this encounterSumma Health Wadsworth [facility]09-21-2023 History of Present illness Narrative* Samaria Haji, FRUIT COORDINATOR.[facility] - 04/04/2023 10:58 AM EDT Images from the original note were not included. PSYC FOLLOW UP - PSYCHIATRIC PROGRESS NOTE DIAGNOSIS: Generalized Anxiety Disorder MDD, recurrent, moderate GAF: -60-51 Moderate symptoms or moderate difficulty in social, occupational or school functioning. TREATMENT PLAN: Complete the serum test ordered by her collar runner. Start Pristiq to address symptoms if test [...] visit. Either the patient or their legal labor representative has been informed of the risks [...] which included preparing to see the patient, ekzc-lc-qgwy patient care, completing clinical documentation, and counseling and educating the patient/family/caregiver, ordering medications/labs. Samaria Haji APRN.CNP April 04, 2023 10:58 AM This note was partially generated using [employer] voice recognition system. Note was reviewed for accuracy. There may be minor misspellings or grammar miscues with [employer] voice recognition. documented in this encounterSumma Health Wadsworth - [facility]ittman [facility] Center08-25-2023 Instructions* Patient Instructions* Samaria Haji APRN.CNP [...] - Call the National Suicide Hotline at 9-008-LXTAIOL ( ) or 7-267-121-TALK (0766) - Text 8MOPE to 095975 Medication Update: Stop Prozac 2. Start Desvenlafaxine (Pristiq) 25 mg ER - take 1 tablet once every morning with breakfast. Next appointment: SaturdayMarch 15 at 5 pm Virtual -- You may call the department appointment line at [phone] to schedule your appointment. -- Please call my nurse Shannon at [phone] or send me a message in Engezni with any questions or concerns between appointments. documented in this encounterSumma Health Wadsworth - [facility]ittman [facility] Center08-25-2023 History of Present illness Narrative* Samaria Haji APRN.CNP - 03/08/2023 2:23 PM EDT PSYC [...] visit. Either the patient or their legal labor representative has been informed of the risks [...] hives associated with anxiety. Collaborate with her collar runner in her care. Follow up in March. [...] which included preparing to see the patient, kkhi-ke-ewhn patient care, completing clinical documentation, and counseling and educating the patient/family/caregiver, ordering medications/labs. Samaria Haji APRN.CNP March 08, 2023 2:23 PM This note was partially generated using [employer] voice recognition system. Note was reviewed for accuracy. There may be minor misspellings or grammar miscues with [employer] voice recognition. documented in this encounterSumma Health Wadsworth - [facility]itt[facility] Center08-24-2023 History of Present illness Narrative* Samaria Haji APRN.CNP - 03/07/2023 10:34 PM EDT Patient had to reschedule her appointment as she was called into work. documented in this encounterSumma Health Wadsworth - [facility]itt[facility] Center06-21-2023 Instructions* Patient Instructions* Marlee Almanza APRN.CNM - 01/02/2023 1:23 PM EDT Images from the original note were not included. To schedule an appointment please contact us at [phone], Option 1. For information pertaining to genetics services at the [facility], you can visit us online [email or web address]. [...] penis or fingers just before sex. Coconut, Bromide, Avocado or Peanut oil- natural oils are [...] are available in pharmacies and online. Restore- [place] Replens Suleiman Feminease Moist Again K-Y Liquid beads documented in this encounterSumma Health Wadsworth - Rittman Medical Center06-21-2023 History of Present illness Narrative* Marlee [...] L2 SAB0 IAB0 Ectopic0 Multiple0 Live Births2 Transmitter Engineer History LMP: 12/05/2022 (Approximate), Having periods Age at Menarche: Age at First : Age at Menopause: Transmitter Engineer History Comments: Sexual Activity: Yes; Male Contraception: [...] external genitalia normal, normal Bartholin's glands, urethra, Gerlach's glands, no vulvar lesions, no cervical lesions, [...] needed Marlee Almanza APRN.CNM documented in this encounterSumma Health Wadsworth - Rittman Medical Center06-05-2023 Miscellaneous Notes* Telephone Encounter - Anjali Valero APRN.CNP - 12/17/2022 1:29 PM EDT Called pharmacy and clarified. * Telephone Encounter - Cookie MARTINEZ - 12/17/2022 10:08 AM EDT [facility] called and stated that they needed quantity directions for prescription. Can you please call them back? documented in this encounterSumma Health Wadsworth - [facility]itt[facility] Center06-05-2023 Instructions* Patient Instructions* Anjali Valero APRN.CNP [...] ER for further evaluation. documented in this encounterSumma Health Wadsworth - [facility]itt[facility] Center06-05-2023 History of Present illness Narrative* Anjali [...] well. Beba Jj LPN documented in this encounterSumma Health Wadsworth - [facility]ittman [facility] Center05-09-2023 Instructions* Patient Instructions* Samaria Haji APRN.BROOKE [...] - Call the National Suicide Hotline at 3-451-AIPSMAP ( ) or 0-125-692-TALK (3927) - Text 0VWSQ to 900633 Medication Update: Venlafaxine 75 mg ER - take 1 capsule once daily. 2. Hydroxyzine 25 mg - take 1/2 to 1 tablet up to three times daily as needed for hives and anxiety. Next appointment: --Schedule in March. -- You may call the department appointment line at [phone] to schedule your appointment. -- Please call my nurse Shannon at [phone] or send me a message in Engezni with any questions or concerns between appointments. documented in this encounterSumma Health Wadsworth - [facility]itt[facility] Center05-09-2023 History of Present illness Narrative* Samaria [...] hives associated with anxiety. Collaborate with her collar runner in her care. Follow up in March. [...] visit. Either the patient or their legal labor representative has been informed of the risks [...] which included preparing to see the patient, arzf-xy-hyzs patient care, completing clinical documentation, and counseling and educating the patient/family/caregiver, ordering medications/labs and communicating with other healthcare providers. Samaria Haji APRN.CNP November 20, 2022 9:06 AM This note was partially generated using [employer] voice recognition system. Note was reviewed for accuracy. There may be minor misspellings or grammar miscues with [employer] voice recognition. documented in this encounterSumma Health Wadsworth - [facility] Center04-21-2023 Instructions* Patient Instructions* Samaria Haji APRN.CNP - 11/02/2022 9:52 AM [...] - Call the National Suicide Hotline at 7-417-NUHSPOW ( ) or 6-170-690-TALK (9570) - Text 4HOPE to 709079 Medication Update: - Celexa 40 mg - take 1/2 tablet once daily for 14 days and then discontinue. - Venlafaxine 37.5 mg XR - take 1 capsule once daily with food for 14 days, then take 2 capsules once daily after that with food. Next appointment: November 20 at 9 am Virtual -- Please call my nurse Shannon at [phone] or send me a message in Engezni with any questions or concerns between appointments. documented in this encounterSumma Health Wadsworth - [facility]itt[facility] Center04-21-2023 History of Present illness Narrative* Samaria [...] visit. Either the patient or their legal labor representative has been informed of the risks and benefits of -- and alternatives to -- treatment through a remote evaluation andconsents to proceed with the evaluation remotely. AGE: [age] year old RACE: White MARITAL STATUS: Single (never ). Has 2 children who are 1 and 2 years old. Her mom helps herwatch the children. 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 She has recently started at [employer] and this has helped with work related stress. REFERRAL SOURCE: Milling Machine Operator Gear - Marlee Almanza APRN CHIEF COMPLAINT: I started zoloft during as I was struggling with depression and anxiety. It worked for my first . Mazama that Zoloft was wearing off during second [...] Catastrophic thinking related to kids. Memory: Fair, intermediate designer, good short term. Anxiety: moderate to high [...] It is hard for her to find arc and gas welder for her children. Current Waste Management Recycling Technician: no Last Hospitalization: Denies hospitalization. ECT: No [...] No history of use or dependence SPIRITUALITY: Confucianist. She [facility] every [facility]. PFSH: Marzena Pickering is the youngest of 2 siblings. Has a good relationship with her elder sister. She lives 10 minutes away. The patient was born and raised in [place], [place]. She completed College. She described her [...] which included preparing to see the patient, kzeb-zf-ribt patient care, completing clinical documentation, obtaining and/or [...] 8:54 AM PAGER : documented in this encounterSumma Health Wadsworth - [facility]itt[facility] Center04-03-2023 Miscellaneous Notes* Telephone Encounter - Yulia Horowitz LPN - 10/15/2022 3:47 PM EDT Please see pt's mycGotaCopyt message and further advise. Yulia Horowitz LPN documented in this encounterSumma Health Wadsworth - [facility]itt[facility] Center03-28-2023 Miscellaneous Notes* Telephone Encounter - Iliana Torres RN - 10/09/2022 1:59 PM EDT Caregiver called after completing survey. Discussed symptoms and she feels ready to RTW. Fatigue and aches have improved. She is taking Tylenol for headache and will be completing antiviral today. CGmeets criteria and is cleared as of 10/09/22. Numerical Control Machine Tool Operator will be notified. documented in this encounterSumma Health Wadsworth - [facility]itt[facility] Center03-28-2023 Miscellaneous Notes* Telephone Encounter - Ole Marcos APRN.CNP - 10/09/2022 8:47 AM EDT Survey completed--NOT cleared. Wanted outreach. Straight to VM, sent MCM. Ole Marcos APRN.CNP documented in this encounterSumma Health Wadsworth - [facility] Center03-27-2023 Miscellaneous Notes* Telephone Encounter - Gracy Woodruff APRN.CNP - 10/08/2022 6:22 PM EDT Day 5 since COVID19 symptom onset. Survey complete. Not cleared to RTW. Declining OccHealth outreach at this time. Will continue to follow Survey results. Gracy Woodruff APRN.CNP Occupational Health documented in this encounterSumma Health Wadsworth - [facility]itt[facility] Center03-23-2023 Miscellaneous Notes* Telephone Encounter - Lexus Emerson RN - 10/04/2022 6:37 PM EDT Images from the original note were not included. Symptomatic Caregiver COVID Call Patient Name: Marzena Pickering Date of : 1990 Primary Care Physician: No primary care provider on file. Service Date: 10/04/2022 Service Time: 6:37 PM Symptomatic Caregiver COVID Call - confirmed: Yes -Caregiver employee ID: -[id number] -Symptom onset: -10/04/22 Covid Immunization Dates Overdue - COVID-19 VACCINE (1) Overdue - never done No completion, postpone, frequency change, or communication history exists for this topic. Recent travel outside [place]: Cares for COVID-19 positive patients: Known [...] questions/comments/concerns Signature: Lexus Emerson RN Patient Name: Marzean Pickering Date: 10/04/2022 Time: 6:37 PM Pager/Contact: documented in this encounterSumma Health Wadsworth - [facility] Center01-21-2023 Instructions* Patient Instructions* Anne-Marie Chacon APRN.BROOKE - 08/04/2022 11:36 AM EST Continue Tylenol as needed for symptoms relief. You may also try otc cold and cough medication documented in this encounterSumma Health Wadsworth - Rittman Medical Center01-21-2023 History of Present illness Narrative* Anne-Marie [...] - BENZONATATE 200 MG CAPSULE Anne-Marie Chacon APRN.COMMERCIAL GREEN BUILDING ARCHITECT documented in this encounterSumma Health Wadsworth - Ritt[facility] Center08-24-2022 Miscellaneous Notes* Telephone Encounter - Yeni [...] patient. Yeni Craig RN documented in this encounterSumma Health Wadsworth - Rittman Medical Center06-15-2022 Miscellaneous Notes* Telephone Encounter - Yeni [...] your desk for review. documented in this encounterSumma Health Wadsworth - Rittman Medical Center06-14-2022 Instructions* Patient Instructions* Marlee Almanza APRN.CNM - 12/26/2021 11:35 AM EDT Patient assistance program-Slynd Https://[employer].Reclog/ https://[place].gov/residents/resources/qzvua-grj-slxjx-certificates [facility]Nitza Blair Oral Contraceptives: The Pill Beginning the [...] less iron deficiency anemia in pill users. long-term use is associated with a decreased incidence [...] and mild fluid retention. There is no exterminator helper termite weight gain with the use of the [...] for necessary health information. documented in this encounterSumma Health Wadsworth - Rittman Medical Center06-14-2022 History of Present illness Narrative* Marlee Almanza APRN.CNM - 12/26/2021 11:02 AM EDT VISIT Marzena Pickering is a 31 year old year old here for visit. Delivery Summary: 11/16/2021 By SEBASTIAN Stahl 6lb 11oz. [place] ROS/ Recovery: Feeding: Breast feeding problems: None Menses since delivery: cramping Menstrual pattern prior to : Regular periods [place] since delivery: Not resumed Depression: denies symptoms [...] external genitalia normal, normal Bartholin's glands, urethra, Gerlach's glands, no vulvar lesions, no cervical lesions, [...] smear Marlee Almanza APRN.CNM documented in this encounterSumma Health Wadsworth - [facility]itt[facility] Center05-13-2022 History of Present illness Narrative* Yeni Craig RN - 11/24/2021 2:46 PM EDT Patient delivered via by Maribeth on 11/16/21 at [facility]. See OB history. Yeni Craig RN documented in this encounterSumma Health Wadsworth - Rittman Medical Center05-03-2022 Miscellaneous Notes* Quick Notes - Marlee [...] today Marlee Almanza APRN.CNM documented in this encounterSumma Health Wadsworth - Rittman Medical Center05-03-2022 Instructions* Patient Instructions* Gracy Cardenas MA - 11/14/2021 11:25 AM EDT SEQUENTIAL SCREENINGS The [facility] offers sequential screenings for women who [...] testing. It will require an appointment withour insulation technician. This is not an ultrasound performed [...] the above symptoms, contact our office at [phone] and ask to speak with anurse. After hours, you can call doctors registry at [phone] OR call [facility] at [phone] ask to have the doctor stallion keeper paged. If you consider this an emergency, dial 9-1-2 or go to your nearest emergency department. NEED HELP? Are you dealing with a violent or abusive relationship? Are you a victim of rape or sexual assult? Call [facility] [place] [facility] 24 hour Crisis Hotline: 992.362.1165 or 872-740-4781. MANUAL Your Guide to a Healthy manual is now on-line. Visit [email or web address] to download your free copy documented in this encounterSumma Health Wadsworth - Ritt[facility] Medical Center04-19-2022 Miscellaneous Notes* Quick Notes - Marlee Almanza APRN.CNM - 10/31/2021 2:31 PM EDT JOLIE: Marzena Pickering is a 31 year old female who presents at 34w5d with NIKKI:12/07/2021, by Ultrasound for a routine visit. Good FM. Denies headache, visual changes, chest pain, shortness of breath, vaginal bleeding, leakage of fluid, or dysuria. Went to [place] for LOF and negative. Still having irregular [...] given Marlee Almanza APRN.CNM documented in this encounterSumma Health Wadsworth - Ritt[facility] Medical Center04-19-2022 Instructions* Patient Instructions* Candelaria Nguyễn Ma - 10/31/2021 2:07 PM EDT Everymother.Reclog for diastasis Recti exercises during and for [...] the above symptoms, contact our office at [phone] and ask to speak with anurse. After hours, you can call doctors registry at [phone] OR call [facility] at [phone] ask to have the doctor stallion keeper paged. If you consider this an emergency, dial 3--2 or go to your nearest emergency department. NEED HELP? Are you dealing with a violent or abusive relationship? Are you a victim of rape or sexual assult? Call [facility] ([place]) 24 hour Crisis Hotline: 748.692.1858 or 517-526-0036. MANUAL Your Guide to a Healthy manual is now on-line. Visit [email or web address] to download your free copy documented in this encounterSumma Health Wadsworth - Ritt[facility] Medical Center04-15-2022 Miscellaneous Notes* Telephone Encounter - Yeni Craig RN - 10/27/2021 9:03 AM EDT Letter sent via ION Signature. Yeni Craig RN * Telephone Encounter - [...] okay for letter just needs released to [place]. Yeni Craig RN documented in this encounterSumma Health Wadsworth - Rittman Medical Center04-13-2022 History of Present illness Narrative* Erendira Hayes MD - 10/25/2021 12:11 PM EDT NST SUMMARY PROVIDER ASSESSMENT AND INTERPRETATION Indications for NST: Decreased Movement Baseline: 140 Variability: Moderate Accelerations: Present 15 X 15 Decelerations: None Interpretation: Reactive SIGNATURE: Erendira Hayes DO documented in this encounterSumma Health Wadsworth - Rittman Medical Center04-13-2022 Miscellaneous Notes* Quick Notes - Erendira Hayes MD - 10/25/2021 11:18 AM EDT SW- Add on visit. Follow up from admission at [facility] for threatened PTL. She states she was [...] wk Erendira Hayes DO documented in this encounterSumma Health Wadsworth - Rittman [facility] Center04-13-2022 Instructions* Patient Instructions* Agueda De Paz MA - 10/25/2021 10:47 AM EDT SEQUENTIAL SCREENINGS The [facility] offers sequential screenings for women who [...] testing. It will require an appointment withour insulation technician. This is not an ultrasound performed [...] the above symptoms, contact our office at [phone] and ask to speak with anurse. After hours, you can call doctors registry at [phone] OR call [facility] at [phone] ask to have the doctor stallion keeper paged. If you consider this an emergency, dial 9-1-0 or go to your nearest emergency department. NEED HELP? Are you dealing with a violent or abusive relationship? Are you a victim of rape or sexual assult? Call [facility] ([place]) 24 hour Crisis Hotline: 470.225.7926 or 230-588-7476. MANUAL Your Guide to a Healthy manual is now on-line. Visit [email or web address] to download your free copy documented in this encounterSumma Health Wadsworth - Rittman Medical Center04-11-2022 Hospital Discharge instructions Patient Education 10/23/2021 [...] crackers, bananas, Jell-O, cooked carrots, applesauce. _x__ [place] diet. Avoid caffeine, chocolate, alcohol, spiced/greasy foods. [...] the nearest Emergency Room for assistance. Form 508316 D: 06/22 Document Released: 07/01/2006 Document Revised: 06/19/2012 Document Reviewed: 07/01/2006 ExitCare Patient Information 2012 [employer]. Follow Up Care 10/20/2021 22:28:18 With:RONALD PEDRAZA MD, YOUTH MINISTER-ONC Address: When: Unknown [facility] 04-11-2022 Miscellaneous Notes* Telephone Encounter - Erendira Hayes MD - 10/23/2021 2:22 PM EDT Noted thanks will route to ALIX as well * Telephone Encounter - Anne-Marie Hartley RN - 10/23/2021 1:40 PM EDT Received a call from [facility] requesting OB records. Patient is at L&D now. Records faxed. Next OB visit 10/31 with [facility]. SERENA Hartley RN documented in this encounterSumma Health Wadsworth - Rittman Medical Center04-11-2022 Note. MICRO - Microbiology PROCEDURE: Urine [...] Locations *1: This test was performed at: [facility], [address] [place] [address], [address] , [facility])10-21-2021 Evaluation + Plan note Future Appointments Diagnostic Tests Pending * Rapid Plasma Reagin Test 10/21/21 [facility] 03-25-2022 Miscellaneous Notes* Quick Notes - [...] up. Erendira Hayes DO documented in this encounterSumma Health Wadsworth - Rittman Medical Center03-25-2022 Instructions* Patient Instructions* Agueda De Paz MA - 10/06/2021 3:42 PM EDT SEQUENTIAL SCREENINGS The [facility] offers sequential screenings for women who [...] testing. It will require an appointment withour insulation technician. This is not an ultrasound performed [...] the above symptoms, contact our office at [phone] and ask to speak with anurse. After hours, you can call doctors registry at [phone] OR call [facility] at [phone] ask to have the doctor stallion keeper paged. If you consider this an emergency, dial 9-1-1 or go to your nearest emergency department. NEED HELP? Are you dealing with a violent or abusive relationship? Are you a victim of rape or sexual assult? Call [facility] ([place]) 24 hour Crisis Hotline: 877.115.5653 or 589-234-5643. MANUAL Your Guide to a Healthy manual is now on-line. Visit [email or web address] to download your free copy documented in this encounterSumma Health Wadsworth - Rittman Medical Center03-25-2022 History of Past illness Narrative* Problem [...] for evaluation. Patient went to [facility] on 11/24/20. 32w6d, contractions became more intense, 2cm dilated, started on Magnesium sulfate drip. Pat was transferred to [facility] in [place] for labor and further evaluation. Magnesium discontinued upon arrival at [facility] and found to only be 1 cm. [...] 04/23/2021 Overview: 06/01/20-reviewed genetic carrier screening with [employer] 14 panel. Patient is interested in handout given to check with insurance. Will let us know at next visit.Marlee Almanza APRN.CNM 05/19/2020Patient states FOB great-grandfather had Cleveland-Sachs disease. Patient considering genetic carrier screening testing.TKRN documented as of this encounter (statuses as of 12/27/2021) [facility]03-25-2022 History of Past illness Narrative* Problem [...] for evaluation. Patient went to [facility] on 11/24/20. 32w6d, contractions became more intense, 2cm dilated, started on Magnesium sulfate drip. Pat was transferred to [facility] in [place] for labor and further evaluation. Magnesium discontinued upon arrival at [facility] and found to only be 1 cm. [...] of this encounter (statuses as of 01/01/2022) [facility]03-25-2022 History of Past illness Narrative* Problem [...] for evaluation. Patient went to [facility] on 11/24/20. 32w6d, contractions became more intense, 2cm dilated, started on Magnesium sulfate drip. Pat was transferred to [facility] in [place] for labor and further evaluation. Magnesium discontinued upon arrival at [place] and found to only be 1 cm. [...] of this encounter (statuses as of 03/07/2022) [facility]03-25-2022 History of Past illness Narrative* Problem [...] for evaluation. Patient went to [facility] on 11/24/20. 32w6d, contractions became more intense, 2cm dilated, started on Magnesium sulfate drip. Pat was transferred to [facility] in [place] for labor and further evaluation. Magnesium discontinued upon arrival at [place] and found to only be 1 cm. [...] of this encounter (statuses as of 04/25/2022) [facility]03-25-2022 History of Past illness Narrative* Problem [...] for evaluation. Patient went to [facility] on 11/24/20. 32w6d, contractions became more intense, 2cm dilated, started on Magnesium sulfate drip. Pat was transferred to [facility] in [place] for labor and further evaluation. Magnesium discontinued upon arrival at [place] and found to only be 1 cm. [...] of this encounter (statuses as of 08/04/2022) [facility]03-25-2022 History of Past illness Narrative* Problem [...] for evaluation. Patient went to [facility] on 11/24/20. 32w6d, contractions became more intense, 2cm dilated, started on Magnesium sulfate drip. Pat was transferred to [facility] in [place] for labor and further evaluation. Magnesium discontinued upon arrival at [place] and found to only be 1 cm. [...] 04/23/2021 Overview: 06/01/20-reviewed genetic carrier screening with [employer] 14 panel. Patient is interested in handout given to check with insurance. Will let us know at next visit.Marleeemre Almanza APRN.CNM 05/19/2020Patient states FOB great-grandfather had [place]-Sachs disease. Patient considering genetic carrier screening testing.TKRN documented as of this encounter (statuses as of 10/05/2022) [facility]03-25-2022 History of Past illness Narrative* Problem [...] for evaluation. Patient went to [facility] on 11/24/20. 32w6d, contractions became more intense, 2cm dilated, started on Magnesium sulfate drip. Pat was transferred to [facility] in [place] for labor and further evaluation. Magnesium discontinued upon arrival at [place] and found to only be 1 cm. Given Celestone x 2 on 11/24/20 and 11/25/20. Growth US showed TORTSEN 12.4, EFW 52nd percentile, 4lb 12oz. DIlated [...] of this encounter (statuses as of 10/08/2022) [facility]03-25-2022 History of Past illness Narrative* Problem [...] for evaluation. Patient went to [facility] on 11/24/20. 32w6d, contractions became more intense, 2cm dilated, started on Magnesium sulfate drip. Pat was transferred to [facility] in [place] for labor and further evaluation. Magnesium discontinued upon arrival at [place] and found to only be 1 cm. [...] of this encounter (statuses as of 10/09/2022) [facility]03-25-2022 History of Past illness Narrative* Problem [...] for evaluation. Patient went to [facility] on 11/24/20. 32w6d, contractions became more intense, 2cm dilated, started on Magnesium sulfate drip. Pat was transferred to [facility] in [place] for labor and further evaluation. Magnesium discontinued upon arrival at [place] and found to only be 1 cm. [...] of this encounter (statuses as of 10/09/2022) [facility]03-25-2022 History of Past illness Narrative* Problem [...] for evaluation. Patient went to [facility] on 11/24/20. 32w6d, contractions became more intense, 2cm dilated, started on Magnesium sulfate drip. Pat was transferred to [facility] in [place] for labor and further evaluation. Magnesium discontinued upon arrival at [place] and found to only be 1 cm. [...] of this encounter (statuses as of 10/17/2022) [facility]03-25-2022 History of Past illness Narrative* Problem [...] for evaluation. Patient went to [facility] on 11/24/20. 32w6d, contractions became more intense, 2cm dilated, started on Magnesium sulfate drip. Pat was transferred to [facility] in [place] for labor and further evaluation. Magnesium discontinued upon arrival at [place] and found to only be 1 cm. [...] of this encounter (statuses as of 11/08/2022) [facility]03-25-2022 History of Past illness Narrative* Problem [...] for evaluation. Patient went to [facility] on 11/24/20. 32w6d, contractions became more intense, 2cm dilated, started on Magnesium sulfate drip. Pat was transferred to [facility] in [place] for labor and further evaluation. Magnesium discontinued upon arrival at [place] and found to only be 1 cm. [...] of this encounter (statuses as of 11/20/2022) [facility]03-25-2022 History of Past illness Narrative* Problem [...] for evaluation. Patient went to [facility] on 11/24/20. 32w6d, contractions became more intense, 2cm dilated, started on Magnesium sulfate drip. Pat was transferred to [facility] in [place] for labor and further evaluation. Magnesium discontinued upon arrival at [place] and found to only be 1 cm. [...] of this encounter (statuses as of 12/17/2022) [facility]03-25-2022 History of Past illness Narrative* Problem [...] for evaluation. Patient went to [facility] on 11/24/20. 32w6d, contractions became more intense, 2cm dilated, started on Magnesium sulfate drip. Pat was transferred to [facility] in [place] for labor and further evaluation. Magnesium discontinued upon arrival at [place] and found to only be 1 cm. [...] 04/23/2021 Overview: 06/01/20-reviewed genetic carrier screening with [employer] 14 panel. Patient is interested in handout given to check with insurance. Will let us know at next visit.Marlee Almanza APRN.CNM 05/19/2020Patient states FOB great-grandfather had [place]-Sachs disease. Patient considering genetic carrier screening testing.TKRN documented as of this encounter (statuses as of 12/17/2022) [facility]03-25-2022 History of Past illness Narrative* Problem [...] for evaluation. Patient went to [facility] on 11/24/20. 32w6d, contractions became more intense, 2cm dilated, started on Magnesium sulfate drip. Pat was transferred to [facility] in [place] for labor and further evaluation. Magnesium discontinued upon arrival at [place] and found to only be 1 cm. [...] of this encounter (statuses as of 01/03/2023) [facility]03-25-2022 History of Past illness Narrative* Problem [...] for evaluation. Patient went to [facility] on 11/24/20. 32w6d, contractions became more intense, 2cm dilated, started on Magnesium sulfate drip. Pat was transferred to [facility] in [place] for labor and further evaluation. Magnesium discontinued upon arrival at [place] and found to only be 1 cm. [...] 04/23/2021 Overview: 06/01/20-reviewed genetic carrier screening with [employer] 14 panel. Patient is interested in handout given to check with insurance. Will let us know at next visit.Marlee Almanza APRN.SEBASTIAN 05/19/2020Patient states FOB great-grandfather had [place]-Sachs disease. Patient considering genetic carrier screening testing.TKRN documented as of this encounter (statuses as of 03/08/2023) [facility]03-25-2022 History of Past illness Narrative* Problem [...] for evaluation. Patient went to [facility] on 11/24/20. 32w6d, contractions became more intense, 2cm dilated, started on Magnesium sulfate drip. Pat was transferred to [facility] in [place] for labor and further evaluation. Magnesium discontinued upon arrival at [place] and found to only be 1 cm. [...] 04/23/2021 Overview: 06/01/20-reviewed genetic carrier screening with [employer] 14 panel. Patient is interested in handout given to check with insurance. Will let us know at next visit.Marlee Almanza APRN.CNM 05/19/2020Patient states FOB great-grandfather had [place]-Sachs disease. Patient considering genetic carrier screening testing.TKRN documented as of this encounter (statuses as of 03/08/2023) [facility]03-25-2022 History of Past illness Narrative* Problem [...] for evaluation. Patient went to [facility] on 11/24/20. 32w6d, contractions became more intense, 2cm dilated, started on Magnesium sulfate drip. Pat was transferred to [facility] in [place] for labor and further evaluation. Magnesium discontinued upon arrival at [place] and found to only be 1 cm. [...] 04/23/2021 Overview: 06/01/20-reviewed genetic carrier screening with [employer] 14 panel. Patient is interested in handout given to check with insurance. Will let us know at next visit.Marlee Almanza APRN.SARITAM 05/19/2020Patient states FOB great-grandfather had [place]-Sachs disease. Patient considering genetic carrier screening testing.TKRN documented as of this encounter (statuses as of 2023) [facility]03-25-2022 History of Past illness Narrative* Problem [...] for evaluation. Patient went to [facility] on 11/24/20. 32w6d, contractions became more intense, 2cm dilated, started on Magnesium sulfate drip. Pat was transferred to [facility] in [place] for labor and further evaluation. Magnesium discontinued upon arrival at [place] and found to only be 1 cm. [...] 04/23/2021 Overview: 06/01/20-reviewed genetic carrier screening with [employer] 14 panel. Patient is interested in handout given to check with insurance. Will let us know at next visit.Marlee Almanza APRN.CNM 05/19/2020Patient states FOB great-grandfather had [place]-Sachs disease. Patient considering genetic carrier screening testing.TKRN documented as of this encounter (statuses as of 04/13/2023) [facility]03-25-2022 History of Past illness Narrative* Problem [...] for evaluation. Patient went to [facility] on 11/24/20. 32w6d, contractions became more intense, 2cm dilated, started on Magnesium sulfate drip. Pat was transferred to [facility] in [place] for labor and further evaluation. Magnesium discontinued upon arrival at [place] and found to only be 1 cm. [...] 04/23/2021 Overview: 06/01/20-reviewed genetic carrier screening with [employer] 14 panel. Patient is interested in handout given to check with insurance. Will let us know at next visit.Marlee Almanza APRN.CNM 05/19/2020Patient states FOB great-grandfather had [place]-Sachs disease. Patient considering genetic carrier screening testing.TKRN documented as of this encounter (statuses as of 08/30/2023) [facility]03-25-2022 History of Past illness Narrative* Problem [...] for evaluation. Patient went to [facility] on 11/24/20. 32w6d, contractions became more intense, 2cm dilated, started on Magnesium sulfate drip. Pat was transferred to [facility] in [place] for labor and further evaluation. Magnesium discontinued upon arrival at [place] and found to only be 1 cm. [...] of this encounter (statuses as of 10/01/2023) [facility]03-25-2022 History of Past illness Narrative* Problem [...] for evaluation. Patient went to [facility] on 11/24/20. 32w6d, contractions became more intense, 2cm dilated, started on Magnesium sulfate drip. Pat was transferred to [facility] in [place] for labor and further evaluation. Magnesium discontinued upon arrival at [place] and found to only be 1 cm. [...] of this encounter (statuses as of 10/25/2023) [facility]03-25-2022 History of Past illness Narrative* Problem [...] for evaluation. Patient went to [facility] on 11/24/20. 32w6d, contractions became more intense, 2cm dilated, started on Magnesium sulfate drip. Pat was transferred to [facility] in [place] for labor and further evaluation. Magnesium discontinued upon arrival at [place] and found to only be 1 cm. [...] of this encounter (statuses as of 11/01/2023) [facility]03-09-2022 Note. MICRO - Microbiology PROCEDURE: Urine [...] Locations *1: This test was performed at: [facility], [address] [place] [address], [facility] , [facility] ([place])09-18-2021 Hospital Discharge instructions Patient Education 09/18/2021 18:23:30 7 - Labor and Delivery Outpatient Instructions(CUSTOM) [facility] HOME-GOING INSTRUCTIONS _X_ [...] crackers, bananas, Jell-O, cooked carrots, applesauce. _x__ [place] diet. Avoid caffeine, chocolate, alcohol, spiced/greasy foods. [...] the nearest Emergency Room for assistance. Form 469146 D: 06/22 Document Released: 07/01/2006 Document Revised: 06/19/2012 Document Reviewed: 07/01/2006 ExitCare Patient Information 2012 [employer]. Follow Up Care 09/18/2021 16:50:06 With:[facility] Address: When: Unknown Comments:Follow-up as scheduled [facility] 03-07-2022 Evaluation + Plan note Diagnostic Tests Pending * Urine Culture 09/18/21 [facility] 02-15-2022 [place] [address] HEALTH INFORMATION MANAGEMENT HISTORY AND PHYSICAL Patient: MARZENA PICKERING DENISE REICH M.D. [id number] 92 31 F Status: REG CLI LD Date of Admission: 08/28/21 CHIEF COMPLAINT: Nausea, vomiting, diarrhea, cramping. HISTORY OF PRESENT ILLNESS: Marzena is a 31-year-old 2, para 1 female. She is approximately 25 to 26 weeks gestation. She sees a collar runner over towards [place]. Apparently, she called her earlier today telling her that she had some vomiting, diarrhea, but also felt she was having some cramping. Apparently, the patient had a history of some labor with her previous , so the collar runner instructed her to come to Labor and Delivery to be evaluated. The patient denies vaginal bleeding, leakage of fluid. movement has been normal. The up until this point sounds as if it has been mainly uneventful. Her collar runner did place her on a baby aspirin, [...] she has additional concerns. Report#: Dict ID [id number] / Int ID [id number] 08/29/21 0828 DENISE REICH M.D. cc: DENISE REICH M.D. << Signature on File>> Reported By: DENISE REICH M.D. Signed By: DENISE REICH M.D. Tests performed at: [facility] [id number] [place], [place] [address] [facility] History of Present illness Narrative* Bradford Mario, DO - 04/25/2021 11:33 AM EDT DATE OF SERVICE: 04/22/2021 HISTORY OF PRESENT ILLNESS: Patient is a 31-year-old white female who presents to the clinic with positive COVID exposure. 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. She has a headache, weakness and congestion. [...] No. 30, one p.o. t.i.d., no refills. supervisor plasma Mucinex 1200 mg to take one twice a day for week, increase water and decrease dairy to make it more effective. Tylenol for any fever or sore throat pain. She was given a note for work that she is to self quarantine until she does get her results back. Return to clinic if any other issues. Bradford Mario DO [id number] SSI File#: [id number] END OF DOCUMENT / CHANGE LOG FOLLOWS Last Edited By [employer]. Signed By Bradford Mario DO #CLAGA Bradford Mario DO #NADIRGA on 04/26/2021 07:45 ET on 04/26/2021 07:45 ET Revision Number - 2 ^^^ Verified/Reviewed by 04/26/21744 RUSS [facility] PATIENT NAME: MARZENA PICKERING MEDICAL REC #: [id number] [place], [place] ADMIT DATE: [facility] REPORT [facility] PHYSICIAN [facility] History of Past illness Narrative* Problem [...] for evaluation. Patient went to [facility] on 11/24/20. 32w6d, contractions became more intense, 2cm dilated, started on Magnesium sulfate drip. Pat was transferred to [facility] in [place] for labor and further evaluation. Magnesium discontinued upon arrival at [place] and found to only be 1 cm. [...] of this encounter (statuses as of 10/06/2021) [facility]06[facility]14-[facility] History of Past illness Narrative* Problem [...] for evaluation. Patient went to [facility] on 11/24/20. 32w6d, contractions became more intense, 2cm dilated, started on Magnesium sulfate drip. Pat was transferred to [facility] in [place] for labor and further evaluation. Magnesium discontinued upon arrival at [place] and found to only be 1 cm. [...] of this encounter (statuses as of 10/18/2021) [facility]06[facility] History of Past illness Narrative* Problem [...] for evaluation. Patient went to [facility] on 11/24/20. 32w6d, contractions became more intense, 2cm dilated, started on Magnesium sulfate drip. Pat was transferred to [facility] in [place] for labor and further evaluation. Magnesium discontinued upon arrival at [place] and found to only be 1 cm. [...] of this encounter (statuses as of 10/20/2021) [facility]06[facility] History of Past illness Narrative* Problem [...] for evaluation. Patient went to [facility] on 11/24/20. 32w6d, contractions became more intense, 2cm dilated, started on Magnesium sulfate drip. Pat was transferred to [facility] in [place] for labor and further evaluation. Magnesium discontinued upon arrival at [place] and found to only be 1 cm. [...] of this encounter (statuses as of 10/24/2021) [facility]06[facility] History of Past illness Narrative* Problem [...] for evaluation. Patient went to [facility] on 11/24/20. 32w6d, contractions became more intense, 2cm dilated, started on Magnesium sulfate drip. Pat was transferred to [facility] in [place] for labor and further evaluation. Magnesium discontinued upon arrival at [place] and found to only be 1 cm. [...] of this encounter (statuses as of 10/24/2021) [facility] History of Past illness Narrative* Problem [...] for evaluation. Patient went to [facility] on 11/24/20. 32w6d, contractions became more intense, 2cm dilated, started on Magnesium sulfate drip. Pat was transferred to [facility] in [place] for labor and further evaluation. Magnesium discontinued upon arrival at [place] and found to only be 1 cm. [...] of this encounter (statuses as of 10/25/2021) [facility]06[facility] History of Past illness Narrative* Problem [...] for evaluation. Patient went to [facility] on 11/24/20. 32w6d, contractions became more intense, 2cm dilated, started on Magnesium sulfate drip. Pat was transferred to [facility] in [place] for labor and further evaluation. Magnesium discontinued upon arrival at [place] and found to only be 1 cm. [...] of this encounter (statuses as of 10/27/2021) [facility] History of Past illness Narrative* Problem [...] for evaluation. Patient went to [facility] on 11/24/20. 32w6d, contractions became more intense, 2cm dilated, started on Magnesium sulfate drip. Pat was transferred to [facility] in [place] for labor and further evaluation. Magnesium discontinued upon arrival at [place] and found to only be 1 cm. [...] of this encounter (statuses as of 10/29/2021) [facility]06[facility] History of Past illness Narrative* Problem [...] for evaluation. Patient went to [facility] on 11/24/20. 32w6d, contractions became more intense, 2cm dilated, started on Magnesium sulfate drip. Pat was transferred to [facility] in [place] for labor and further evaluation. Magnesium discontinued upon arrival at [place] and found to only be 1 cm. [...] of this encounter (statuses as of 11/01/2021) [facility] History of Past illness Narrative* Problem [...] for evaluation. Patient went to [facility] on 11/24/20. 32w6d, contractions became more intense, 2cm dilated, started on Magnesium sulfate drip. Pat was transferred to [facility] in [place] for labor and further evaluation. Magnesium discontinued upon arrival at [place] and found to only be 1 cm. [...] of this encounter (statuses as of 11/14/2021) [facility] History of Past illness Narrative* Problem [...] for evaluation. Patient went to [facility] on 11/24/20. 32w6d, contractions became more intense, 2cm dilated, started on Magnesium sulfate drip. Pat was transferred to [facility] in [place] for labor and further evaluation. Magnesium discontinued upon arrival at [place] and found to only be 1 cm. [...] of this encounter (statuses as of 11/24/2021) [facility]06[facility] History of Past illness Narrative* Problem [...] for evaluation. Patient went to [facility] on 11/24/20. 32w6d, contractions became more intense, 2cm dilated, started on Magnesium sulfate drip. Pat was transferred to [facility] in [place] for labor and further evaluation. Magnesium discontinued upon arrival at [place] and found to only be 1 cm. [...] of this encounter (statuses as of 11/27/2021) [facility] History of Past illness Narrative* Problem [...] for evaluation. Patient went to [facility] on 11/24/20. 32w6d, contractions became more intense, 2cm dilated, started on Magnesium sulfate drip. Pat was transferred to [facility] in [place] for labor and further evaluation. Magnesium discontinued upon arrival at [place] and found to only be 1 cm. [...] of this encounter (statuses as of 12/19/2021) [facility] Diagnosis 31 weeks gestation of - Primary state, incidental Short interval between pregnancies affecting , antepartum Pelvic pain during Supervision of other normal , antepartum documented in this encounter [facility] Diagnosis Onset Date Resolution Status 31 weeks gestation of acute contractions [facility] Work Phone: Evaluation note* Diagnosis Onset Date Resolution Status 31 weeks gestation of acute contractions acute 31 weeks gestation of acute Decreased movement acu te contractions acute [facility] Work Phone: Evaluation note* Diagnosis Uterine size date discrepancy, third trimester- Primary 32 weeks gestation of state, incidental [facility] healthcare note* Diagnosis 33 weeks gestation of - Primary state, incidental Short interval between pregnancies affecting , antepartum Supervision of other normal , antepartum Threatened premature labor in third trimester [facility] Diagnosis 34 weeks gestation of - Primary state, incidental [facility] Diagnosis 36 weeks gestation of - Primary state, incidental Uterine size-date discrepancy, third trimester [facility]* Diagnosis Onset Date Resolution Status 31 [...] disorder) acute History of pre-term labor ac [place] HSV-2 seropositive acute Iron deficiency anemia acute Periurethral laceration, del ivered, current hospitalization acute Short interval between pregn ancies affecting , antepartum acute Vaginal delivery acute [facility] Work Phone: Evaluation note* Diagnosis care and examination- Primary Routine follow-up Encounter for initial prescription of contraceptive pills General counseling for prescription of oral contraceptives [facility] Diagnosis Viral URI with cough- Primary Acute upper respiratory infections of unspecified site [facility] this [facility] Diagnosis Suspected 2019 novel coronavirus infection- Primary [facility] this [facility] Diagnosis GUIDO (generalized anxiety disorder)- Primary Generalized anxiety disorder documented in this [facility] Diagnosis GUIDO (generalized anxiety disorder)- Primary Generalized anxiety disorder documented in this [facility]* Diagnosis Pharyngitis, unspecified etiology- Primary Sore throat Acute pharyngitis Acute bacterial conjunctivitis of both eyes documented in this encounter [facility]* Diagnosis Encounter for gynecological examination (general) [...] Generalized anxiety disorder [facility] CANCELLED- Primary [facility] Diagnosis GUIDO (generalized anxiety disorder)- Primary Generalized anxiety disorder [facility] Diagnosis GUIDO (generalized anxiety disorder)- Primary Generalized anxiety disorder Moderate episode of recurrent major depressive disorder (HCC) [facility] Diagnosis Moderate episode of recurrent major depressive disorder (HCC) GUIDO (generalized anxiety disorder) Generalized anxiety disorder [facility] Diagnosis Neoplasm of unspecified behavior of bone, soft tissue, and skin- Primary Family history of melanoma Family history of other specified malignant neoplasm [facility] Diagnosis Recurrent major depressive disorder, in partial remission (HCC)- Primary GUIDO (generalized anxiety disorder) Generalized anxiety disorder Grief reaction Adjustment disorder with depressed mood [facility] Diagnosis Abnormal uterine bleeding (AUB)- Primary [facility] Diagnosis Missed menses- Primary Absence of menstruation [facility] Diagnosis APPOINTMENT CANCELLED- Primary [facility] Diagnosis Recurrent major depressive disorder, in partial remission (HCC)- Primary GUIDO (generalized anxiety disorder) Generalized anxiety disorder Grief reaction Adjustment disorder with depressed mood [facility] Diagnosis GUIDO (generalized anxiety disorder)- Primary Generalized anxiety disorder Moderate episode of recurrent major depressive disorder (HCC) Apathy Demoralization and apathy Medication side effect, initial encounter Encounter for long-term (current) use of medications Encounter for long-term (current) use of other medications [facility] Diagnosis GUIDO (generalized anxiety disorder)- Primary Generalized anxiety disorder Recurrent major depressive disorder, in partial remission (HCC) Encounter for long-term (current) use of medications Encounter for long-term (current) use of other medications with 8 completed weeks gestation [facility] Diagnosis Nausea and vomiting, unspecified vomiting type- Primary Dizzy Dizziness and giddiness Viral illness Unspecified viral infection, in conditions classified elsewhere and of unspecified site [facility] Diagnosis Supervision of high risk [...] of congenital anomalies [facility] Diagnosis APPOINTMENT CANCELLED- Primary [facility] Diagnosis Supervision of high risk , antepartum- Primary Herpes simplex virus (HSV) infection Anxiety and depression Dysthymic disorder 11 weeks gestation of state, incidental [facility] Diagnosis Encounter for anatomic survey- Primary History of labor Personal history of pre-term labor 11 weeks gestation of state, incidental [facility] Diagnosis NO SHOW- Primary [facility] Diagnosis Supervision of high risk , antepartum (HCC)- Primary 15 weeks gestation of (HCC) state, incidental HSV-2 seropositive Other and unspecified nonspecific immunological findings History of depression History of anxiety Personal history of other mental disorder Anxiety and depression Dysthymic disorder [facility] Diagnosis GUIDO (generalized anxiety disorder)- Primary Generalized anxiety disorder Encounter for long-term (current) use of medications Encounter for long-term (current) use of other medications Recurrent major depressive disorder, in partial remission Psychosocial stressors Other psychological or physical stress, not elsewhere classified [facility] Diagnosis Screening for diabetes mellitus- Primary 23 weeks gestation of (HCC) state, incidental Supervision of high risk in second trimester (HCC) Unspecified high-risk Heartburn [facility] Diagnosis contractions (HCC)- Primary Threatened premature labor, antepartum Supervision of high risk in second trimester (HCC)- Primary Unspecified high-risk 27 weeks gestation of (HCC) state, incidental Bleeding of eye, left documented in this [facility]* Diagnosis contractions (HCC)- Primary Threatened premature labor, antepartum Conjunctival hemorrhage of left eye- Primary Conjunctival hemorrhage documented in this encounter [facility]* Diagnosis contractions (HCC)- Primary Threatened premature labor, antepartum Supervision of high risk in third trimester (HCC)- Primary Unspecified high-risk 30 weeks gestation of (HCC) state, incidental HSV-2 seropositive Other and unspecified nonspecific immunological findings History of depression Anxiety and depression Dysthymic disorder Bleeding of eye, left Antepartum anemia complicating in third trimester ([facility]) documented in this encounter [facility]* Diagnosis Uterine contractions (HCC)- Primary 32 weeks gestation of (HCC) state, incidental 31 weeks gestation of ([facility]) state, incidental contractions (HCC) Threatened premature labor, antepartum 31 weeks gestation of ([facility]) state, incidental Supervision of high risk in third trimester ([facility])- Primary Unspecified high-risk 31 weeks gestation of ([facility]) state, incidental HSV-2 seropositive Other and unspecified nonspecific immunological findings Anxiety and depression Dysthymic disorder Antepartum anemia complicating in third trimester (HCC) Heartburn during in third trimester ([facility]) documented in this encounter [facility]* Diagnosis Uterine contractions (HCC)- Primary 32 weeks gestation of (HCC) state, incidental 31 weeks gestation of (HCC) state, incidental contractions (HCC) Threatened premature labor, antepartum Supervision of other high risk pregnancies, third trimester (HCC)- Primary Uterine size-date discrepancy, third trimester (HCC) 33 weeks gestation of ([facility]) state, incidental Herpes simplex virus (HSV) infection Antepartum anemia complicating in third trimester (HCC) Heartburn during in third trimester ([facility]) Anxiety and depression Dysthymic disorder documented in this encounter [facility]* Diagnosis Uterine contractions (HCC)- Primary 32 weeks gestation of (HCC) state, incidental 31 weeks gestation of (HCC) state, incidental contractions (HCC) Threatened premature labor, antepartum Uterine size-date discrepancy, third trimester (HCC) documented in this encounter [facility]* Diagnosis Onset Date Resolution Status Admit Date 34 weeks gestation of acute March 17, 8:25pm contractions acute Mar 8:25pm [facility] Work Phone: History and physical note Author Miriam Demarco [facility] Note Date/Time March 17, 2025 8:42pm [facility] Medical Records Department [address] [place] [address] OB Triage Physician Note 03/17/252035 MR#: [id number] Acct: [id number] Name: MARZENA PICKERING Rep #:[id number] : 1990 34 From: Miriam Gr MD PCP: Care Physician,No Primary Status :REG CLI Y Location: [address] HPI - General General Date of Service: 03/17/25 HPI Narrative MARZENA PICKERING, is a 34 F @ 34.6 weeks who presents c/o contractions. reports has been not feeling great- no fevers - but is not drinking much water. denies VB, LOF. [facility] Medical History (Updated 03/17/25 @ 20:[address] Miriam Ramsey MD) Genital herpes affecting Home Medications ?Medication ?Instructions ?Recorded ?Last Taken ?Type 1 tab PO/SL DAILY Check with 12/27/20 10/07/21 07:00 History primary doctor sertraline 100 mg tablet (Zoloft) 100 mg PO DAILY Che k with [facility] 12/27/20 10/07/21 07:00 History doctor acyclovir 400 mg tablet 400 mg PO TID Check with [facility] 11/07/21 11/07/21 History doctor ferrous sulfate 325 [...] MD; No Primary Care Physician ~ Signed [facility] Work Phone: Hospital course Narrative No data available for this section [facility] Progress note No data available for this section [facility] Reason for referral (narrative)* Diagnostic Procedure Only (Routine) - Authorized Specialty Diagnoses / Procedures Referred By Lucrecia olmstead Referred To Contact [facility] Diagnoses 36 weeks gestation of Uterine size-date discrepancy, third trimester Procedures OBSTETRIC ULTRASOUND WHI US PREG UTERUS AFTER 1ST TRIMEST GESTATION Marlee Almanza APRN.CNM [address] [place] [address] [facility] [address] [place] [address] Referral ID Status Reason Start Date Expiration Date Visits Requested Visits Authorized [id number] Authorized Auto-Generat ed Referral 11/16/2021 07/14/2022 1 1 [facility] for referral (narrative)* Diagnostic Procedure Only (Routine) - Authorized Specialty Diagnoses / Procedures Referred By Lucrecia olmstead Referred To Contact [facility] Diagnoses Abnormal uterine bleeding (AUB) Procedures US FEMALE PELVIS TRANSVAG US TRANSVAGINAL Marlee Almanza APRN.CNM [address] [place] [address] [place] [address] Referral ID Status Reason Start Date Expiration Date Visits Requested Visits Authorized [id number] Authorized Auto-Generat ed Referral 11/06/2023 12/05/2024 1 1 [facility] for referral (narrative)No reason for referral [facility] Work Phone: Summary Purpose Family History No Family History Records Found Relationship Condition Age at Onset Recorded Date/T sergio sister Family history of defect Unknown Advance Directives No Advanced Directives Records Found Advance Directive Response Recorded Date/ Time Living Will No December 27, 2020 5:00pm Power of Tubular Splitting Machine Tender No December 27 5:00pm Advance Directive Response Recorded Date/ Time Living Will No November 16, 2021 10 :59pm Power of Tubular Splitting Machine Tender No November 16, 2021 10:59pm Advance Directive Response Recorded Date/ Time Do you have a Healthcare Power of Tubular Splitting Machine Tender? No March 29, 2025 3:03am Chief Complaint [...] CONSULT TO MEDICAL GENETICS - GENERAL OFFICE/OUTPATIENT [facility] 60-74 MINUTES MEDICAL GENETICS COUNSELING EACH 30 MINUTES Marele Almanza APRN.[facility] [address] [place] [address] [facility] [place] [address] Referral ID Status Reason Start Date Expiration Date Visits Requested Visits Authorized [id number] Authorized PCP Requested Referral Auto-Generate d Referral 01/02/2023 01/02/2024 1 1 Additional Source Comments INFORMATION SOURCE (unrecogn ized section and content) DATE CREATED AUTHOR 08/26/2021 [facility] DATE CREATED AUTHOR AUTHOR'S ORGANIZ ATION 10/01/2021 [facility] DATE CREATED AUTHOR AUTHOR'S ORGANIZ ATION 01/31/2022 [facility] DATE CREATED AUTHOR AUTHOR'S ORGANIZ ATION 05/20/2022 [facility] [place] DATE CREATED AUTHOR AUTHOR'S ORGANIZ ATION 12/25/2022 [facility] DATE CREATED AUTHOR AUTHOR'S ORGANIZ ATION 10/06/2024 [facility] DATE CREATED AUTHOR AUTHOR'S ORGANIZ ATION 01/21/2025 [facility] DATE CREATED AUTHOR AUTHOR'S ORGANIZ ATION 03/17/2025 [facility] DATE CREATED AUTHOR AUTHOR'S ORGANIZ ATION 04/02/2025 [facility] DATE CREATED AUTHOR AUTHOR'S ORGANIZ ATION 04/02/2025 [facility] Source Comments (unrecognize d section and content) In the event this informatio n is protected by the Federal Confidentiality of Alcohol and Drug Abuse Patient Records regulations: The Federal rules restrict any use of the information to criminally investigate or prosecute any alcohol or drug abuse patient.[facility] the event this information is protected by the Federal Confidentiality of Alcohol and Drug Abuse Patient Records regulations: The Federal rules restrict any use of the information to criminally investigate or prosecute any alcohol or drug abuse patient.[facility] the event this information is protected by the Federal Confidentiality of Alcohol and Drug Abuse Patient Records regulations: The Federal rules restrict any use of the information to criminally investigate or prosecute any alcohol or drug abuse patient.[facility] the event this information is protected by the Federal Confidentiality of Alcohol and Drug Abuse Patient Records regulations: The Federal rules restrict any use of the information to criminally investigate or prosecute any alcohol or drug abuse patient.[facility] the event this information is protected by the Federal Confidentiality of Alcohol and Drug Abuse Patient Records regulations: The Federal rules restrict any use of the information to criminally investigate or prosecute any alcohol or drug abuse patient.[facility] the event this information is protected by the Federal Confidentiality of Alcohol and Drug Abuse Patient Records regulations: The Federal rules restrict any use of the information to criminally investigate or prosecute any alcohol or drug abuse patient.[facility] the event this information is protected by the Federal Confidentiality of Alcohol and Drug Abuse Patient Records regulations: The Federal rules restrict any use of the information to criminally investigate or prosecute any alcohol or drug abuse patient.[facility] the event this information is protected by the Federal Confidentiality of Alcohol and Drug Abuse Patient Records regulations: The Federal rules restrict any use of the information to criminally investigate or prosecute any alcohol or drug abuse patient.[facility] Center[facility] the event this information is protected by the Federal Confidentiality of Alcohol and Drug Abuse Patient Records regulations: The Federal rules restrict any use of the information to criminally investigate or prosecute any alcohol or drug abuse patient.[facility] the event this information is protected by the Federal Confidentiality of Alcohol and Drug Abuse Patient Records regulations: The Federal rules restrict any use of the information to criminally investigate or prosecute any alcohol or drug abuse patient.[facility] the event this information is protected by the Federal Confidentiality of Alcohol and Drug Abuse Patient Records regulations: The Federal rules restrict any use of the information to criminally investigate or prosecute any alcohol or drug abuse patient.[facility] the event this information is protected by the Federal Confidentiality of Alcohol and Drug Abuse Patient Records regulations: The Federal rules restrict any use of the information to criminally investigate or prosecute any alcohol or drug abuse patient.[facility] the event this information is protected by the Federal Confidentiality of Alcohol and Drug Abuse Patient Records regulations: The Federal rules restrict any use of the information to criminally investigate or prosecute any alcohol or drug abuse patient.[facility] the event this information is protected by the Federal Confidentiality of Alcohol and Drug Abuse Patient Records regulations: The Federal rules restrict any use of the information to criminally investigate or prosecute any alcohol or drug abuse patient.[facility] the event this information is protected by the Federal Confidentiality of Alcohol and Drug Abuse Patient Records regulations: The Federal rules restrict any use of the information to criminally investigate or prosecute any alcohol or drug abuse patient.[facility] the event this information is protected by the Federal Confidentiality of Alcohol and Drug Abuse Patient Records regulations: The Federal rules restrict any use of the information to criminally investigate or prosecute any alcohol or drug abuse patient.[facility] Center[facility] the event this information is protected by the Federal Confidentiality of Alcohol and Drug Abuse Patient Records regulations: The Federal rules restrict any use of the information to criminally investigate or prosecute any alcohol or drug abuse patient.[facility] Center[facility] the event this information is protected by the Federal Confidentiality of Alcohol and Drug Abuse Patient Records regulations: The Federal rules restrict any use of the information to criminally investigate or prosecute any alcohol or drug abuse patient.[facility] Center[facility] the event this information is protected by the Federal Confidentiality of Alcohol and Drug Abuse Patient Records regulations: The Federal rules restrict any use of the information to criminally investigate or prosecute any alcohol or drug abuse patient.[facility] Center[facility] the event this information is protected by the Federal Confidentiality of Alcohol and Drug Abuse Patient Records regulations: The Federal rules restrict any use of the information to criminally investigate or prosecute any alcohol or drug abuse patient.[facility] the event this information is protected by the Federal Confidentiality of Alcohol and Drug Abuse Patient Records regulations: The Federal rules restrict any use of the information to criminally investigate or prosecute any alcohol or drug abuse patient.[facility] Center[facility] the event this information is protected by the Federal Confidentiality of Alcohol and Drug Abuse Patient Records regulations: The Federal rules restrict any use of the information to criminally investigate or prosecute any alcohol or drug abuse patient.[facility] Center[facility] the event this information is protected by the Federal Confidentiality of Alcohol and Drug Abuse Patient Records regulations: The Federal rules restrict any use of the information to criminally investigate or prosecute any alcohol or drug abuse patient.[facility] the event this information is protected by the Federal Confidentiality of Alcohol and Drug Abuse Patient Records regulations: The Federal rules restrict any use of the information to criminally investigate or prosecute any alcohol or drug abuse patient.[facility] the event this information is protected by the Federal Confidentiality of Alcohol and Drug Abuse Patient Records regulations: The Federal rules restrict any use of the information to criminally investigate or prosecute any alcohol or drug abuse patient.[facility] CenterIn the event this information is protected by the Federal Confidentiality of Alcohol and Drug Abuse Patient Records regulations: The Federal rules restrict any use of the information to criminally investigate or prosecute any alcohol or drug abuse patient.[facility] Center[facility] the event this information is protected by the Federal Confidentiality of Alcohol and Drug Abuse Patient Records regulations: The Federal rules restrict any use of the information to criminally investigate or prosecute any alcohol or drug abuse patient.[facility] CenterIn the event this information is protected by the Federal Confidentiality of Alcohol and Drug Abuse Patient Records regulations: The Federal rules restrict any use of the information to criminally investigate or prosecute any alcohol or drug abuse patient.[facility] CenterIn the event this information is protected by the Federal Confidentiality of Alcohol and Drug Abuse Patient Records regulations: The Federal rules restrict any use of the information to criminally investigate or prosecute any alcohol or drug abuse patient.[facility] CenterIn the event this information is protected by the Federal Confidentiality of Alcohol and Drug Abuse Patient Records regulations: The Federal rules restrict any use of the information to criminally investigate or prosecute any alcohol or drug abuse patient.[facility] CenterIn the event this information is protected by the Federal Confidentiality of Alcohol and Drug Abuse Patient Records regulations: The Federal rules restrict any use of the information to criminally investigate or prosecute any alcohol or drug abuse patient.[facility] CenterIn the event this information is protected by the Federal Confidentiality of Alcohol and Drug Abuse Patient Records regulations: The Federal rules restrict any use of the information to criminally investigate or prosecute any alcohol or drug abuse patient.[facility] CenterIn the event this information is protected by the Federal Confidentiality of Alcohol and Drug Abuse Patient Records regulations: The Federal rules restrict any use of the information to criminally investigate or prosecute any alcohol or drug abuse patient.[facility] CenterIn the event this information is protected by the Federal Confidentiality of Alcohol and Drug Abuse Patient Records regulations: The Federal rules restrict any use of the information to criminally investigate or prosecute any alcohol or drug abuse patient.[facility] CenterIn the event this information is protected by the Federal Confidentiality of Alcohol and Drug Abuse Patient Records regulations: The Federal rules restrict any use of the information to criminally investigate or prosecute any alcohol or drug abuse patient.[facility] CenterIn the event this information is protected by the Federal Confidentiality of Alcohol and Drug Abuse Patient Records regulations: The Federal rules restrict any use of the information to criminally investigate or prosecute any alcohol or drug abuse patient.[facility] CenterIn the event this information is protected by the Federal Confidentiality of Alcohol and Drug Abuse Patient Records regulations: The Federal rules restrict any use of the information to criminally investigate or prosecute any alcohol or drug abuse patient.[facility] CenterIn the event this information is protected by the Federal Confidentiality of Alcohol and Drug Abuse Patient Records regulations: The Federal rules restrict any use of the information to criminally investigate or prosecute any alcohol or drug abuse patient.[facility] CenterIn the event this information is protected by the Federal Confidentiality of Alcohol and Drug Abuse Patient Records regulations: The Federal rules restrict any use of the information to criminally investigate or prosecute any alcohol or drug abuse patient.[facility] CenterIn the event this information is protected by the Federal Confidentiality of Alcohol and Drug Abuse Patient Records regulations: The Federal rules restrict any use of the information to criminally investigate or prosecute any alcohol or drug abuse patient.[facility] CenterIn the event this information is protected by the Federal Confidentiality of Alcohol and Drug Abuse Patient Records regulations: The Federal rules restrict any use of the information to criminally investigate or prosecute any alcohol or drug abuse patient.[facility] CenterIn the event this information is protected by the Federal Confidentiality of Alcohol and Drug Abuse Patient Records regulations: The Federal rules restrict any use of the information to criminally investigate or prosecute any alcohol or drug abuse patient.[facility] CenterIn the event this information is protected by the Federal Confidentiality of Alcohol and Drug Abuse Patient Records regulations: The Federal rules restrict any use of the information to criminally investigate or prosecute any alcohol or drug abuse patient.[facility] CenterIn the event this information is protected by the Federal Confidentiality of Alcohol and Drug Abuse Patient Records regulations: The Federal rules restrict any use of the information to criminally investigate or prosecute any alcohol or drug abuse patient.[facility] CenterIn the event this information is protected by the Federal Confidentiality of Alcohol and Drug Abuse Patient Records regulations: The Federal rules restrict any use of the information to criminally investigate or prosecute any alcohol or drug abuse patient.[facility] CenterIn the event this information is protected by the Federal Confidentiality of Alcohol and Drug Abuse Patient Records regulations: The Federal rules restrict any use of the information to criminally investigate or prosecute any alcohol or drug abuse patient.[facility] CenterIn the event this information is protected by the Federal Confidentiality of Alcohol and Drug Abuse Patient Records regulations: The Federal rules restrict any use of the information to criminally investigate or prosecute any alcohol or drug abuse patient.[facility] CenterIn the event this information is protected by the Federal Confidentiality of Alcohol and Drug Abuse Patient Records regulations: The Federal rules restrict any use of the information to criminally investigate or prosecute any alcohol or drug abuse patient.[facility] CenterIn the event this information is protected by the Federal Confidentiality of Alcohol and Drug Abuse Patient Records regulations: The Federal rules restrict any use of the information to criminally investigate or prosecute any alcohol or drug abuse patient.[facility] CenterIn the event this information is protected by the Federal Confidentiality of Alcohol and Drug Abuse Patient Records regulations: The Federal rules restrict any use of the information to criminally investigate or prosecute any alcohol or drug abuse patient.[facility] CenterIn the event this information is protected by the Federal Confidentiality of Alcohol and Drug Abuse Patient Records regulations: The Federal rules restrict any use of the information to criminally investigate or prosecute any alcohol or drug abuse patient.[facility] CenterIn the event this information is protected by the Federal Confidentiality of Alcohol and Drug Abuse Patient Records regulations: The Federal rules restrict any use of the information to criminally investigate or prosecute any alcohol or drug abuse patient.[facility] CenterIn the event this information is protected by the Federal Confidentiality of Alcohol and Drug Abuse Patient Records regulations: The Federal rules restrict any use of the information to criminally investigate or prosecute any alcohol or drug abuse patient.[facility] CenterIn the event this information is protected by the Federal Confidentiality of Alcohol and Drug Abuse Patient Records regulations: The Federal rules restrict any use of the information to criminally investigate or prosecute any alcohol or drug abuse patient.[facility] CenterIn the event this information is protected by the Federal Confidentiality of Alcohol and Drug Abuse Patient Records regulations: The Federal rules restrict any use of the information to criminally investigate or prosecute any alcohol or drug abuse patient.[facility] CenterIn the event this information is protected by the Federal Confidentiality of Alcohol and Drug Abuse Patient Records regulations: The Federal rules restrict any use of the information to criminally investigate or prosecute any alcohol or drug abuse patient.[facility] CenterIn the event this information is protected by the Federal Confidentiality of Alcohol and Drug Abuse Patient Records regulations: The Federal rules restrict any use of the information to criminally investigate or prosecute any alcohol or drug abuse patient.[facility] CenterIn the event this information is protected by the Federal Confidentiality of Alcohol and Drug Abuse Patient Records regulations: The Federal rules restrict any use of the information to criminally investigate or prosecute any alcohol or drug abuse patient.[facility] CenterIn the event this information is protected by the Federal Confidentiality of Alcohol and Drug Abuse Patient Records regulations: The Federal rules restrict any use of the information to criminally investigate or prosecute any alcohol or drug abuse patient.[facility] CenterIn the event this information is protected by the Federal Confidentiality of Alcohol and Drug Abuse Patient Records regulations: The Federal rules restrict any use of the information to criminally investigate or prosecute any alcohol or drug abuse patient.[facility] CenterIn the event this information is protected by the Federal Confidentiality of Alcohol and Drug Abuse Patient Records regulations: The Federal rules restrict any use of the information to criminally investigate or prosecute any alcohol or drug abuse patient.[facility] CenterIn the event this information is protected by the Federal Confidentiality of Alcohol and Drug Abuse Patient Records regulations: The Federal rules restrict any use of the information to criminally investigate or prosecute any alcohol or drug abuse patient.[facility] CenterIn the event this information is protected by the Federal Confidentiality of Alcohol and Drug Abuse Patient Records regulations: The Federal rules restrict any use of the information to criminally investigate or prosecute any alcohol or drug abuse patient.[facility] CenterIn the event this information is protected by the Federal Confidentiality of Alcohol and Drug Abuse Patient Records regulations: The Federal rules restrict any use of the information to criminally investigate or prosecute any alcohol or drug abuse patient.[facility] CenterIn the event this information is protected by the Federal Confidentiality of Alcohol and Drug Abuse Patient Records regulations: The Federal rules restrict any use of the information to criminally investigate or prosecute any alcohol or drug abuse patient.[facility] CenterIn the event this information is protected by the Federal Confidentiality of Alcohol and Drug Abuse Patient Records regulations: The Federal rules restrict any use of the information to criminally investigate or prosecute any alcohol or drug abuse patient.[facility] CenterIn the event this information is protected by the Federal Confidentiality of Alcohol and Drug Abuse Patient Records regulations: The Federal rules restrict any use of the information to criminally investigate or prosecute any alcohol or drug abuse patient.[facility] CenterIn the event this information is protected by the Federal Confidentiality of Alcohol and Drug Abuse Patient Records regulations: The Federal rules restrict any use of the information to criminally investigate or prosecute any alcohol or drug abuse patient.[facility] CenterIn the event this information is protected by the Federal Confidentiality of Alcohol and Drug Abuse Patient Records regulations: The Federal rules restrict any use of the information to criminally investigate or prosecute any alcohol or drug abuse patient.[facility] CenterIn the event this information is protected by the Federal Confidentiality of Alcohol and Drug Abuse Patient Records regulations: The Federal rules restrict any use of the information to criminally investigate or prosecute any alcohol or drug abuse patient.[facility] CenterIn the event this information is protected by the Federal Confidentiality of Alcohol and Drug Abuse Patient Records regulations: The Federal rules restrict any use of the information to criminally investigate or prosecute any alcohol or drug abuse patient.[facility] CenterIn the event this information is protected by the Federal Confidentiality of Alcohol and Drug Abuse Patient Records regulations: The Federal rules restrict any use of the information to criminally investigate or prosecute any alcohol or drug abuse patient.[facility] CenterIn the event this information is protected by the Federal Confidentiality of Alcohol and Drug Abuse Patient Records regulations: The Federal rules restrict any use of the information to criminally investigate or prosecute any alcohol or drug abuse patient.[facility] CenterIn the event this information is protected by the Federal Confidentiality of Alcohol and Drug Abuse Patient Records regulations: The Federal rules restrict any use of the information to criminally investigate or prosecute any alcohol or drug abuse patient.[facility] Reason for Visit (unrecogniz ed section and content) Reason Comments No Show Specialty Diagnoses / Procedures Referred By Contac t Referred To Contact Psychiatry / ADULT PSYCHIATRY Diagnoses follow up Procedures VIDEO PSYC/PSYL EST [facility] [address] [place] [address] Phone: tel: Samaria Haji, FRUIT COORDINATOR.[employer]ILD[employer] ARCHITECT [address] [place] [address] Phone: tel: fax: Referral ID Status Reason Start Date Expiration Date Visits Requested Visits Authorized [id number] Authorized Benefit Check 07/15/2024 07/14/2025 99 99 Reason Comments Appointment Cancelled Reason Onset Date Comments Care 10/06/2021 Specialty Diagnoses / Procedures Referred By Lucrecia olmstead Referred To Contact PALLIATIVE NURSE Diagnoses 31 weeks gestation of OB-Cramping, Increased pressure Procedures OFFICE/OUTPATIENT ESTABLISHED MOD MDM 30-39 MIN EST I OB Self Erendira Hayes MD [address] [place] [address] Referral ID Status Reason Start Date Expiration Date Visits Re quested Visits Authorized [id number] Closed 10/06/2021 07/14/2022 1 1 Reason Comments US Specialty Diagnoses / Procedures Referred By Lucrecia olmstead Referred To Contact [facility] Diagnoses 30 weeks gestation of Short interval between pregnancies affecting , antepartum Procedures OBSTETRIC ULTRASOUND [facility] US PREG UTERUS AFTER 1ST TRIMEST GESTATION Erendira Hayes MD [address] [place] [address] [facility] [address] [place] [address] Referral ID Status Reason Start Date Expiration Date V isits Requested Visits Authorized [id number] Closed Auto-Generate d Referral 10/18/2021 07/14/2022 1 1 Reason Comments Patient Update Reason Onset Date Comments Care 10/25/2021 Specialty Diagnoses / Procedures Referred By Lucrecia olmstead Referred To Contact PALLIATIVE NURSE Diagnoses ob-f/u from Jamal Procedures EST [facility] OB Erendira Hayes MD [address] [place] [address] Erendira Hayes MD [address] [place] [address] Referral ID Status Reason Start Date Expiration Date Visits Re quested Visits Authorized [id number] Closed 10/25/2021 01/23/2022 1 1 Reason Comments Letter Reason Onset Date Comments Care 10/31/2021 Specialty Diagnoses / Procedures Referred By Contac t Referred To Contact PALLIATIVE NURSE Diagnoses OB Procedures OFFICE/OUTPATIENT ESTABLISHED MOD [facility] 30-39 MIN EST [facility] OB Self Marlee Almanza APRN.CN [address] [place] [address] Referral ID Status Reason Start Date Expiration Date Visits Re quested Visits Authorized [id number] Closed 10/31/2021 07/14/2022 1 1 Reason Onset Date Comments Care 11/14/2021 Specialty Diagnoses / Procedures Referred By Contac t Referred To Contact PALLIATIVE NURSE Diagnoses OB Procedures OFFICE/OUTPATIENT ESTABLISHED MOD [facility] 30-39 MIN EST [facility] OB Marlee Taylor APRN.CNM [address] [place] [address] Reason Comments Ob Delivery Note Reason Comments Routine Specialty Diagnoses / Procedures Referred By Contac t Referred To Contact PALLIATIVE NURSE Diagnoses False labor before 37 completed weeks of gestation, unspecified trimester post Procedures OFFICE/OUTPATIENT ESTABLISHED MOD [facility] 30-39 MIN POST Marlee Taylor APRN.CNM [address] [place] [address] Referral ID Status Reason Start Date Expiration Date Visits Re quested Visits Authorized [id number] Closed 12/26/2021 07/14/2022 1 1 Reason Comments [...] Diagnoses medication management Procedures VIDEO PSYC/PSMarlee Vega APRN.[facility] [address] [place] [address] Samaria Haji, FRUIT COORDINATOR.[employer] ARCHITECT [address] [place] [address] Referral ID Status Reason Start Date Expiration Date Visits Requested Visits Authorized [id number] Authorized Benefit Check 07/15/2022 07/14/2023 99 99 [...] disorder) Procedures CONSULT TO HOLISTIC PSYCHOTHERAPY OFFICE/OUTPATIENT [facility] 60 MINUTES Samaria Haji, FRUIT COORDINATOR.[employer]ILD[employer] ARCHITECT [address] [place] [address] Referral ID Status Reason Start Date Expiration Date V isits Requested Visits Authorized [id number] Closed PCP Requested Referral 07/17/2023 07/16/2024 1 1 Reason Comments LESION, SKIN Reason Comments Irregular Menstrual Cycle Reason Comments Follow Up Depression/anxiety Reason Comments Vaginal Problem Specialty Diagnoses / Procedures Referred By Contac t Referred To Contact Psychiatry / ADULT PSYCHIATRY Diagnoses follow up 3 month Procedures VIDEO PSYC/PSYL EST Samaria Haji, FRUIT COORDINATOR.[employer]ILD[employer] ARCHITECT [address] [place] [address] Samaria Haji, FRUIT COORDINATOR.[employer] BUILD[employer] ARCHITECT [address] [place] [address] Referral ID Status Reason Start Date Expiration Date Visits Requested Visits Authorized [id number] Authorized Benefit Check 03/13/2024 07/14/2024 99 99 Reason Comments Medication Question Reason Comments Question (OB Question) Reason Comments Vomiting Sx started x 2 weeks with vomiting, diarrhea,cough, chest tightness. Pt is 7 weeks . Tylenol last dose 1400 tody Reason Comments Initial OB Visit Specialty Diagnoses / Procedures Referred By Lucrecia olmstead Referred To Contact [facility] Diagnoses 7 weeks gestation of Procedures OBSTETRIC ULTRASOUND [facility] US PREG UTERUS AFTER 1ST TRIMEST GESTATION Marlee Almanza APRN.[facility] [address] [place] [address] Phone: tel: fax: [facility] [address] [place] [address] Referral ID Status Reason Start Date Expiration Date V isits Requested Visits Authorized [id number] Closed Auto-Generate d Referral 09/08/2024 09/08/2025 1 1 Reason Onset Date Comments Care 11/03/2024 Reason Comments Follow Up Specialty Diagnoses / Procedures Referred By Lucrecia olmstead Referred To Contact Psychiatry / ADULT PSYCHIATRY Diagnoses follow up Procedures VIDEO PSYC/PSYL EST [facility] [address] [place] [address] Phone: tel: Samaria Haji, CRUZITO.[employer] BUILD[employer] ARCHITECT [address] [place] [address] Phone: tel: fax: Referral ID Status Reason Start Date Expiration Date Visits Requested Visits Authorized [id number] Authorized Benefit Check 07/15/2024 07/14/2025 99 99 Reason Onset Date Comments Care 12/30/2024 Reason Onset Date Comments Care 01/25/2025 Reason Comments redness left eye Reason Onset Date Comments Care 02/11/2025 Reason Onset Date Comments Care 02/22/2025 Reason Onset Date Comments Care 03/05/2025 Specialty Diagnoses / Procedures Referred By Lucrecia olmstead Referred To Contact [facility] Diagnoses Uterine size-date discrepancy, third trimester (HCC) Procedures OBSTETRIC ULTRASOUND [facility] US PREG UTERUS AFTER 1ST TRIMEST GESTATION Marlee Almanza APRN.CNM [address] [place] [address] Phone: tel: fax: [facility] [place] [address] Referral ID Status Reason Start Date Expiration Date V isits Requested Visits Authorized [id number] Closed Auto-Generate d Referral 03/05/2025 03/05/2026 1 [...] Active Start: March End: March 17, 2025 Architect Intern Relationship Specialty Start Date End Date Willa Rogers DO PCP - General Internal Medicine 10/04/22 Architect Intern Relationship Specialty Start Date End Date Willa Domingo DO PCP - General Internal Medicine 10/04/22 Architect Intern Relationship Specialty Start Date End Date Willa Doimngo DO [facility] [address] [place] [address] PCP - General Internal Medicine 10/04/22 Architect Intern Relationship Specialty Start Date End Date Willa Domingo DO [address] [place] [address] PCP - General Internal Medicine [...] BE BASED ON THE PRIMARY CLINICAL RECORDS. [employer] [facility] provides no warranty or guarantee of the accuracy or completeness of information in this document.
--- NOTE | 2025-04-03 02:56 | PCM.PN.OB ---
Subjective Subjective AROM for clear fluid. 6cm/70/-2 cat 1 tracing. Objective Data Objective Data Vital Signs: Vital Signs Temp Pulse Resp BP Pulse Ox 98.0 F 71 16 132/80 H 98 04/03/25 02:16 04/03/25 02:16 04/03/25 02:16 04/03/25 02:16 04/03/25 02:16 Weight: 81.102 kg Body Mass Index (BMI) 30.7 Intake & Output: Intake and Output for Last 24 Hours 04/01/25 04/02/25 04/03/25 23:59 23:59 23:59 Intake Total 100 / 100 Balance 100 / 100 Lab / Micro Data 04/03/25 02:25 NST FHR Rate Baby A Baseline: 150 Variability:: Moderate Accelerations:: 15 x 15 Decelerations:: None NST Reactive:: Yes Assessment & Plan (1) Active labor at term: (2) 37 weeks gestation of : PLAN: Plan Epidural prn.
[2025-04-03] MEDS: 0.9% Saline Lock 10 ML Syringe IV (03:05)
[2025-04-03] MEDS: Lactated Ringers 1,000 ML 999 ML IV (03:07)
[2025-04-03 03:27] LABS: Hematocrit 29.5 % (37-47); Hemoglobin 9.8 g/dL (12.0-15.0); Mean Corp Hgb Conc 33.2 g/dL (32-36); Mean Corpuscular Volume 84.3 fL (81-99); Red Blood Count 3.50 M/mm3 (4.2-5.4); White Blood Count 13.0 K/mm3 (4.4-11.0)
[2025-04-03 03:28] LABS: Immature Granulocytes Count 0.040 X10^3/uL (0.0-0.0); Mean Platelet Vol. 11.9 fl (6.2-12.0); Platelet Count 313 K/mm3 (150-450); Syphilis Antibodies Nonreactive (Nonreactive)
[2025-04-03 03:29] LABS: RBC Distribution Width CV 13.1 % (11.6-14.6); RBC Distribution Width SD 39.7 fl (35.1-43.9)
--- NOTE | 2025-04-03 04:17 | OB.VAGDELI_ITS ---
Assessment & Plan (1) (spontaneous vaginal delivery): Maternal Data Information Final NIKKI: 04/22/25 Gestational age: 37+2 Vaginal Delivery Maternal Presentation Maternal Presentation: Active Labor Vaginal Delivery Information Procedure Performed: Spontaneous Vaginal Delivery Surgeon/Practitioner: Anne-Marie Roldan Date of Procedure: 04/03/25 Pre-Procedure Diagnosis: term labor Post-Procedure Diagnosis: Type of anesthesia: None Estimated Blood Loss: 200 cc Time of Delivery: 03:49 Findings Description of procedure: Presented in labor. Initially desired to have a natural delivery. After AROM pain significantly increased and patient requested epidural. While sitting for an epidural patient rapidly progressed from 6 to complete. Epidural had not been dosed when the head spontaneously delivered. Patient moved to her side and pushed one time to deliver the vertex SOPHIA. The posterior and then anterior shoulder delivered easily. The patient remained on her side and baby was placed face to face with mom and stimulated. The cord was clamped and cut. Cord blood was collected. The infant was moved to the warmer. The placenta delivered spontaneously. There were no lacerations. All sponge, needle and instrument counts were correct Presentation: Vertex and SOPHIA Amniotic Membrane Rupture Type: Artificial Amniotic Fluid Description: Clear Placental Delivery Description: Spontaneous Placenta Disposition: [facility] Specimen collected: No Cord Vessel Description: 3 Vessels Cord Entanglement: None Infant A Gender: Female (1 minute): 5 (5 minute): 8 Delayed Cord Clamping: Yes Wind Turbine Installer emergency communications dispatcher: No Post Vaginal Deli Medications given after delivery: IM Pitocin Episiotomy Description: None Laceration: None Complication Complications: No
--- NOTE | 2025-04-03 13:42 | CASEMGMT ---
Social Work Assessment Labor and Delivery Unit Patient Address: [address], [place] [address] Phone number: [phone] Date of Referral: 04/03/25 Time of Referral: 13:42 Referred By: Anne-Marie Roldan Date of Intervention: 04/03/25 Time of Intervention: 13:42 Reason for Referral: Mental Health: History of PPD, depression and anxiety. History obtained from: Mother of baby (MOB), father of baby (FOB/Norberto, age 35) and medical record review. ? Household composition: MOB, her 2 daughters Laquita Covington, age 4, Britni Garcia, age 3 and MOB and FOB?s daughter Laron Pickering, born on 04/03/25. The FOB does not live in the home. Patient's parent/guardian status: ???MOB were together for a period of time, however are no longer in a relationship. MOB and FOB have plans to co-parent. MOB denied any previous or current issues of domestic violence. ?The FOB reported he has two sons of his own. Medical History: : 3, para, now 3. MOB received PNC through [facility] beginning at 7 weeks and 5 days. Visits appeared to have been routine. Apgars: 5,8 and 9. Weight: 3100 grams, Garnisher: AKUA San with [employer] YANE[employer]. Educational Status: MOB and FOB denied any issues with reading, writing or learning comprehension. MOB reported she earned her Bachelor?s degree and the FOB earned his High School diploma. Financial Status: MOB and FOB reported that their income is sufficient to meet the needs of their at this time. 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 [employer] reported she is allowed to take 12 weeks of maternity leave. Infant Supplies: MITCH reported she has all of the supplies she needs for baby at this time including but not limited to: Car seat, bassinet, crib, pack-n-play, diapers, bottles, breast pump and clothing. Childcare/Caregiver(s): MITCH reported that once she returns to work, her stepdad, street inspector and the FOB will all help provide care for during the times she is at work. Transportation: Both MOB and FOB are licensed drivers and have a reliable vehicle to get baby to and from all medical appointments. MOB and FOB denied any issues/barriers to transportation at this time. Programs/Agencies Involved: MOB reported she used to involved in counseling and now see?s a Psychiatrist, Dr. Samaria Cline, whom the MOB see?s once a month. Children Services/Legal Issues: MOB and FOB denied any previous or current Children Services and/or legal involvement. Behavioral Health Issues: None reported/denied Mental Health History: ??MOB has a history of anxiety, depression and PPD with MOB?s first-born. MOB reported she is currently on Zoloft and reported the symptoms are being effectively managed at this time. FOB reported he has a history of PTSD, and used to be involved with a psychiatrist, however is no longer connected to services as the FOB ?feels like his symptoms are currently being managed at this time. Community Association Manager administered the [place] Depression Scale (EPDS). MOB?s score was a 1. Community Association Manager provided education about the score and what to look out for which the MOB verbalized she understood. Substance Use History:?? MOB and FOB denied any current drug and/or alcohol abuse however the FOB reported that he used to abuse alcohol however does not currently. ? Family History: MOB reported that her mother used to be a functioning alcoholic however her mother is now . MOB reported that it will be 2 years in August that her mother has been . FOB reported his mother and father were alcoholics and his father also abused drugs. FOB reported his mother in 2016 and his father has been sober for 14 years. Drug Screens: None obtained during this admission for the MOB or baby. Family/Social Stressors:?? Denied. Support Systems: MOB identified her biggest support as her sister, her stepmom, her stepdad and her grandparents. Depression/Shaken Baby/Safe Sleeping: Community Association Manager provided verbal and written education on PPD, increased risk factors for PPD, Safe Sleeping and Shaken Baby.? MOB and FOB both verbalized an understanding.??? ASSESSMENT: MOB and FOB provided consent to social work visit. Upon arrival, the MOB was sitting upright in the hospital bed with and the MOB?s sister was sitting on a nearby couch. The FOB was on his way back to the hospital to bring back lunch for everyone. MOB provided consent for her sister and the FOB to be present during the social services aide visit/assessment. Prior to the arrival of the FOB, social services aide spoke with the MOB who denied any current or history of DV with the FOB. MOB reported she and the FOB get into verbal arguments which is why they are no longer together. MOB denied any unmanaged mental health issues either with herself or with the FOB and also denied any concerns with any drug or alcohol abuse either with herself or with the FOB. Community Association Manager observed some ?awkward tension? at times with the MOB and FOB however overall, no concerns. The MOB held throughout the assessment and was observed to be very gentle and attentive to . MOB appeared to be attached and bonded to . Safe Plan of Care for infant related to substance use: N/A PLAN: For MOB and baby to be discharged when medically ready. No other services requested or indicated. Anne-Marie Marcano, ALODIZE MACHINE HELPER, MARBLE INSTALLER
[2025-04-03] MEDS: GLYCERIN/WITCH HAZEL (TUCKS) MED..PAD 1 EACH TOPICAL ×2 (18:01→23:16)
[2025-04-03] MEDS: SELF ADMINISTRATION OF MEDS 1 EACH NOTE (23:16)
[2025-04-04] VITALS: BP 123/94; PULSE 69; RESP 16; TEMP 36.5; O2SAT 99
[2025-04-04 03:56] VITALS: BP 117/77; PULSE 62; RESP 16; TEMP 36.2; O2SAT 98
[2025-04-04 07:40] VITALS: BP 135/77; PULSE 67; RESP 16; TEMP 36.1; O2SAT 99
--- NOTE | 2025-04-04 08:37 | PCM.PN.OB ---
Subjective Subjective Doing well. Ambulating and voiding without difficulty. Mild lochia. Breast feeding. Objective Data Objective Data Vital Signs: Vital Signs Temp Pulse Resp BP Pulse Ox O2 Del Method 97.0 F L 67 16 135/77 H 99 Room Air 04/04/25 07:40 04/04/25 07:40 04/04/25 07:40 04/04/25 07:40 04/04/25 07:40 04/04/25 07:40 Oxygen Delivery Method Room Air Weight: 81.102 kg Body Mass Index (BMI) 30.7 Intake & Output: Intake and Output for Last 24 Hours 04/02/25 04/03/25 04/04/25 23:59 23:59 23:59 Intake Total 100 / 100 799.2 / 799.2 Output Total 700 / 700 Balance 100 / 100 99.2 / 99.2 Lab / Micro Data 04/03/25 02:25 ROS Constitutional Constitutional: Denies headache(s) Cardiovascular Cardiovascular: Denies chest pain or dyspnea Gastrointestinal Gastrointestinal: Denies nausea or vomiting Genitourinary Genitourinary: Denies dysuria Physical Exam Const alert, oriented x3 and no apparent distress General Appearance: cooperative and comfortable Eyes PERRL and EOMs intact bilaterally Resp normal respiratory effort GI soft to palpation and non-tender Narrative: Fundus firm, below umbilicus. Uterus Palpation: uterus fundus firm ( below umbilicus) Extremity normal to inspection and full ROM Neuro oriented x3 and CN's II-XII intact bilaterally Psych mental status grossly normal Assessment & Plan (1) (spontaneous vaginal delivery): PLAN: Plan Discharge home
--- NOTE | 2025-04-04 08:38 | PCM.DC.SUM ---
Providers Date of Admission: 04/03/25 Date of Discharge: 04/04/25 Primary Care Physician: Brie Primary Care Phys Reason For Visit: LABOR Diagnosis Discharge Diagnosis (1) (spontaneous vaginal delivery): Status: Acute Code(s): O80 - Encounter for full-term uncomplicated delivery Plan Discharge home Medications at Discharge Home Medications 1 tab PO/SL DAILY Check with primary doctor 12/27/20 sertraline 100 mg tablet (Zoloft) 100 mg PO DAILY Check with primary doctor 12/27/20 ferrous sulfate 325 mg (65 mg iron) tablet (Feosol) 325 mg PO QDAY 03/17/25 omeprazole 20 mg capsule,delayed release 20 mg PO DAILY 03/17/25 Hospital Course Operations None Procedures None Summary of Care Provided Minutes Spent on Discharge: 21 Hospital Course: Rapid labor and delivery. No problem Physical Exam Const alert and no apparent distress Narrative: Fundus firm, below umbilicus. Weight / BMI Weight Weight: 81.102 kg Body Mass Index (BMI) 30.7 ABG / Lab / Microbiology Data 04/03/25 02:25 D/C Instructions May resume sexual activity in: 6 weeks DC O2, CPAP, BIPAP Needs Home O2 Discharge instructions: No Please Follow Up With: Jeana Cueva MD When: Follow up with our office in 1-2 and 6 weeks or as needed. [phone] Meaningful Use Info Meaningful Use Meaningful Use Diagnoses (Choose all that apply): None applicable Discharge Plan Admission Admit Date/Time: 04/03/25 01:55 Primary Reason for Your Visit: labor Attending Provider: Anne-Marie Roldan Primary Care Provider: Care ,Brie Primary Discharge Orders/Prescriptions Prescriptions: Continued sertraline [Zoloft] 100 mg Tablet 100 mg PO DAILY 1 tab PO/SL DAILY omeprazole 20 mg capsule,delayed release(DR/EC) 20 mg PO DAILY ferrous sulfate [Feosol] 325 mg (65 mg iron) tablet 325 mg PO QDAY Discontinued acyclovir 400 mg Tablet 400 mg PO TID Referrals / Follow Up: Care PhysicianBrie Primary [Primary Care Provider, Medical] Disposition Disposition (needs filled in before D/C Order can be placed): Home, Self Care
[2025-04-04] MEDS: Senna/Docusate Sodium 1 Tablet PO (10:07)
== END 2025-04-04 10:10 | disposition home or self-care (01) | DRG 807 ==
LOC: WPOUT 02:02 → WP 02:02
PROVIDERS: Admitting Provider Obstetrics & Gynecology; Referring Provider Obstetrics & Gynecology; Visit Provider Obstetrics & Gynecology
DX: O62.3 Precipitate labor (principal); Z37.0 Single live birth; O99.344 Other mental disorders complicating childbirth; F32.A Depression, unspecified; F41.9 Anxiety disorder, unspecified; K21.9 Gastro-esophageal reflux disease without esophagitis; O99.62 Diseases of the digestive system complicating childbirth; Z3A.37 37 weeks gestation of pregnancy; Z79.899 Other long term (current) drug therapy; Z86.16 Personal history of COVID-19; Z87.59 Personal history of other complications of pregnancy, childbirth and the puerperium
CPT/HCPCS: 59025; 59050; 85025; 86780; 86850; 86900; 86901; 99221; A4216; G0378; J2405